=== PATIENT | male | born 1950 | race Caucasian/White ===

== ENCOUNTER 2016-03-22 16:44 | Emergency (ER) | payer OTHER ==
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
--- NOTE | 2016-03-22 18:42 | XR ---
EXAMINATION TYPE: XR knee complete RT DATE OF EXAM: 03/22/2016 6:34 PM COMPARISON: NONE HISTORY: Knee pain TECHNIQUE: 3 views FINDINGS: There is a large spur on the tibial tubercle. There is spurring on the anterior patella. I see no fracture nor dislocation. Joint spaces are fairly normal. IMPRESSION: No fracture seen. Degenerative spur formation.
[2016-03-22] MEDS ORDERED: hydrALAZINE HCL 20 MG/ML 1 ML VIAL IVP STA (19:34)
[2016-03-22 20:07] VITALS: BP 163/72; PULSE 87; RESP 18; TEMP 97.6
== END 2016-03-22 20:06 | disposition home or self-care (01) ==
LOC: EC 16:44
DX: J32.9 Chronic sinusitis, unspecified (principal); I10 Essential (primary) hypertension; M25.561 Pain in right knee; R51 Headache; E11.40 Type 2 diabetes mellitus with diabetic neuropathy, unspecified; Z79.899 Other long term (current) drug therapy; Z79.84 Long term (current) use of oral hypoglycemic drugs; Z79.4 Long term (current) use of insulin; I25.2 Old myocardial infarction; V43.52XA Car driver injured in collision with other type car in traffic accident, initial encounter
CPT/HCPCS: 73562; 72125; 70450; 96374; 99284; J0360

== ENCOUNTER 2018-08-08 19:43 | Emergency (ER) | payer MEDICARE, OTHER ==
[2018-08-08 19:52] LABS: Glucose,Whole Blood 118 mg/dL (75-99)
[2018-08-08 19:58] VITALS: RESP 18
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
[2018-08-08 20:32] LABS: Basophils # (A) 0.1 k/uL (0-0.2); Basophils % (A) 1 %; Eosinophils # (A) 0.3 k/uL (0-0.7); Eosinophils % (A) 3 %; HCT 45.9 % (39.0-53.0); HGB 14.8 gm/dL (13.0-17.5); Lymphocytes # (A) 1.2 k/uL (1.0-4.8); Lymphocytes % (A) 13 %; MCH 29.3 pg (25.0-35.0); MCHC 32.2 g/dL (31.0-37.0); MCV 91.1 fL (80.0-100.0); Mean Platelet Volume 9.8; Monocytes # (A) 0.6 k/uL (0-1.0); Monocytes % (A) 6 %; Neutrophils # (A) 7.4 k/uL (1.3-7.7); Neutrophils % (A) 75 %; Platelet Count 162 k/uL (150-450); RBC 5.03 m/uL (4.30-5.90); RDW 13.3 % (11.5-15.5); WBC 9.8 k/uL (3.8-10.6)
[2018-08-08 20:46] LABS: Albumin 3.7 g/dL (3.5-5.0); Calcium 8.5 mg/dL (8.4-10.2); Potassium 4.4 mmol/L (3.5-5.1); Total Bilirubin 0.4 mg/dL (0.2-1.3); Total Protein 6.7 g/dL (6.3-8.2)
[2018-08-08 21:29] VITALS: BP 146/89; PULSE 68; TEMP 98.6
== END 2018-08-08 21:29 | disposition home or self-care (01) ==
LOC: SUPCPDRO 19:43 → EC 19:43
DX: E11.649 Type 2 diabetes mellitus with hypoglycemia without coma (principal); E11.40 Type 2 diabetes mellitus with diabetic neuropathy, unspecified; I10 Essential (primary) hypertension; I25.2 Old myocardial infarction; Z79.4 Long term (current) use of insulin; Z79.899 Other long term (current) drug therapy; Z95.5 Presence of coronary angioplasty implant and graft; Z89.422 Acquired absence of other left toe(s)
CPT/HCPCS: 36415; 80053; 85025; 93005; 99284

== ENCOUNTER 2019-01-15 19:07 | Inpatient (IN) | payer MEDICARE ==
[~2019-01-15 19:07] MED LIST: MIDAZOLAM 2 MG/2 ML VIAL ONE; PHENYLEPHRINE-0.9% NACL SYG 1 MG/10 ML SYRINGE ONE; ROCURONIUM BROMIDE 10 MG/ML 10 ML VIAL IV ONE; fentaNYL (PF) 50 MCG/ML 2 ML AMP ONE
[2019-01-15] MEDS ORDERED: SODIUM CHLORIDE 0.9% 1,000 ML IV STA (19:29)
[2019-01-15] MEDS ORDERED: cefTRIAXone IN SWFI 1,000 MG/10 ML SYRINGE IVP STA (19:30)
--- NOTE | 2019-01-15 19:39 | ED ---
General Adult HPI - General Source: patient, RN notes reviewed Mode of arrival: wheelchair Limitations: no limitations <Homero Mejia - Last Filed: 01/15/19 21:54> <Winnie Jameson - Last Filed: 01/21/19 02:17> - General Chief complaint: Extremity Injury, Lower Stated complaint: toe injury Time Seen by Provider: 01/15/19 19:14 - History of Present Illness Initial comments: 68-year-old male with a past medical history of IDDM, hyperlipidemia, hypertension, [place], neuropathy presents to the emergency department for a chief complaint of right fifth toe pain. Patient is unsure how long this has been ongoing for, states he thinks it is at least one month. States it is causing him pain shooting up to his knee. States it is painful to ambulate on. Denies fevers or chills. States he did have to have a toe of the left foot amputated.Patient has no other complaints at this time including shortness of breath, chest pain, abdominal pain, nausea or vomiting, headache, or visual changes. (Homero Mejia) - Related Data Home Medications Medication Instructions Recorded Confirmed HYDROcodone/APAP 10-325MG [[place] 1 tab PO TID PRN 02/03/15 01/15/19 10-325] glipiZIDE [Glucotrol] 10 mg PO DAILY 02/03/15 01/15/19 Insuln Asp Prt/Insulin Aspart 35 unit SQ AC-BRKFST 03/22/16 01/15/19 [NovoLOG MIX 70-30 VIAL] Brimonidine Tartrate [Alphagan P 1 drops LEFT EYE TID 08/08/18 01/15/19 0.2% Ophth Soln] Dorzolamide 2% [Trusopt 2%] 1 drops LEFT EYE TID 08/08/18 01/15/19 FLUoxetine HCL [PROzac] 20 mg PO DAILY 08/08/18 01/15/19 Insuln Asp Prt/Insulin Aspart 20 unit SQ HS 08/08/18 01/15/19 [NovoLOG MIX 70-30 VIAL] Latanoprost/Pf [Latanoprost 0.005% 1 drop LEFT EYE HS 08/08/18 01/15/19 Eye Drop] Lisinopril 40 mg PO DAILY 08/08/18 01/15/19 Timolol 0.5% Ophth Soln [Timoptic 1 drop LEFT EYE BID 08/08/18 01/15/19 0.5% Ophth Soln] metFORMIN HCL [Glucophage] 500 mg PO BID 08/08/18 01/15/19 Gabapentin [Neurontin] 100 mg PO HS 01/15/19 01/20/19 Insulin Aspart [NovoLOG] 8 units SQ AC-SUPPER 01/15/19 01/15/19 rOPINIRole HCL [Requip] 2 mg PO HS 01/15/19 01/15/19 Atorvastatin [Lipitor] 40 mg PO HS 01/20/19 01/20/19 Pioglitazone [Actos] 30 mg PO DAILY 01/20/19 01/20/19 amLODIPine BESYLATE 5 mg PO DIRECTED 01/20/19 01/20/19 Allergies Allergy/AdvReac Type Severity Reaction Status Date / Time No Known Allergies Allergy Verified 01/15/19 21:52 Review of Systems ROS Other: All systems not noted in ROS Statement are negative. <Homero Mejia - Last Filed: 01/15/19 21:54> ROS Other: All systems not noted in ROS Statement are negative. <Winnie Jameson - Last Filed: 01/21/19 02:17> ROS Statement: Those systems with pertinent positive or pertinent negative responses have been documented in the HPI. Past Medical History Past Medical History: Diabetes Mellitus, Hyperlipidemia, Hypertension, Myocardial Infarction ([place]), Osteoarthritis (OA) Additional Past Medical History / Comment(s): SILENT [place]-UNK DATE, NEUROPATHY/FEET,RLS, BROKEN LT ELBOW AND RT ANKLE HAD SX ON BOTH HAS SCREWS IN PLACE, PREVIOUS DIABETIC ULCERS. Wounds Right foot Last Myocardial Infarction Date:: UNK History of Any Multi-Drug Resistant Organisms: MRSA Date of last positivie culture/infection: 02-04-2015 MDRO Source:: MRSA- right foot wound Past Surgical History: Heart Catheterization Additional Past Surgical History / Comment(s): LT MIDDLE TOE AMPUTION, ORIF LT ELBOW, RT ANKLE HAS SCREWS IN PLACE, PICC LINE LT ARM SINCE REMOVED. Right foot incision and drainage Past Anesthesia/Blood Transfusion Reactions: No Reported Reaction Past Psychological History: No Psychological Hx Reported Smoking Status: Never smoker Past Alcohol Use History: None Reported Past Drug Use History: None Reported - Past Family History Mother Family Medical History: Diabetes Mellitus Additional Family Medical History / Comment(s): CARDIAC PROBLEMS AT AGE 63 Father History Unknown: Yes Additional Family Medical History / Comment(s): STILL ALIVE AT AGE 89 NOT FAILING <Homero Mejia - Last Filed: 01/15/19 21:54> General Exam Limitations: no limitations General appearance: alert, in no apparent distress Head exam: Present: atraumatic, normocephalic, normal inspection Eye exam: Present: normal appearance, PERRL, EOMI. Absent: scleral icterus, conjunctival injection, periorbital swelling ENT exam: Present: normal exam, mucous membranes moist Neck exam: Present: normal inspection, full ROM. Absent: tenderness, meningismus, lymphadenopathy Respiratory exam: Present: normal lung sounds bilaterally. Absent: respiratory distress, wheezes, rales, rhonchi, stridor Cardiovascular Exam: Present: regular rate, normal rhythm, normal heart sounds. Absent: systolic murmur, diastolic murmur, rubs, gallop, clicks Extremities exam: Present: other (Patient has necrotic right fifth toe extending to the proximal metatarsal area. This is blackened with a foul odor. There is erythema noted of the right foot as well. DP and PT pulses are evident on Doppler.). Absent: calf tenderness (tenderness) <Homero Mejia - Last Filed: 01/15/19 21:54> Course Vital Signs 01/15/19 01/15/19 01/15/19 19:09 20:41 22:02 Temperature 98.0 F Pulse Rate 102 H 104 H 94 Respiratory 20 22 22 Rate Blood Pressure 162/71 134/60 149/67 O2 Sat by Pulse 96 95 95 Oximetry Medical Decision Making - Lab Data Result diagrams: 01/15/19 20:20 01/15/19 20:20 <Homero Mejia - Last Filed: 01/15/19 21:54> - Lab Data Result diagrams: 01/20/19 05:15 01/20/19 05:15 <Winnie Jameson - Last Filed: 01/21/19 02:17> - Medical Decision Making 68-year-old male with multiple comorbidities including his [place] diabetes presents for right foot pain. Patient unsure how long this has been going on but thinks at least greater than one month. He does have evidence of a chronic tissue on the lateral distal right foot as well as the right fifth toe. CBC does show a leukocytosis of 22.2 and a lactic acid of 2.3. Patient was given fluids and IV antibiotics before 3 hours after sepsis dx. Does not require 30 mL/kg as he is not hypotensive. X-ray of the right foot shows extensive soft tissue air consistent with gangrene. No fracture. No focal bone destruction seen. Case was discussed with Dr. Jameson who spoke with Dr. Granger and Dr. Bustillos. Patient will be admitted on broad-spectrum antibiotics. (Homero Mejia) I was available for consultation in the emergency department. The history and physical exam were done by the midlevel provider. I was consulted for this patients care. I reviewed the case with the midlevel provider and based on their presentation of the patient, I agree with the assessment, medical decision making and plan of care as documented. I evaluated the patient myself. No crepitance noted or other concerning signs of necrotizing fascitis. I called and discussed the case with Dr. Bustillos who accepted the consult. I also discussed the case with Dr. Granger who accepted admission. Chart was dictated using [employer] dictation software. Attempts were made to correct any dictation errors however some typographical errors may persist. (Winnie Jameson) - Lab Data Lab Results 01/15/19 01/15/19 01/15/19 Range/Units 20:20 20:20 20:20 WBC 22.2 H (3.8-10.6) k/uL RBC 4.93 (4.30-5.90) m/uL Hgb 14.8 (13.0-17.5) gm/dL Hct 46.5 (39.0-53.0) % MCV 94.4 (80.0-100.0) fL MCH 30.1 (25.0-35.0) pg MCHC 31.9 (31.0-37.0) g/dL RDW 11.9 (11.5-15.5) % Plt Count 243 (150-450) k/uL Neutrophils % 88 % Lymphocytes % 4 % Monocytes % 5 % Eosinophils % 1 % Basophils % 0 % Neutrophils # 19.6 H (1.3-7.7) k/uL Lymphocytes # 0.9 L (1.0-4.8) k/uL Monocytes # 1.2 H (0-1.0) k/uL Eosinophils # 0.2 (0-0.7) k/uL Basophils # 0.0 (0-0.2) k/uL Sodium 136 L (137-145) mmol/L Potassium 4.7 (3.5-5.1) mmol/L Chloride 96 L (98-107) mmol/L Carbon Dioxide 28 (22-30) mmol/L Anion Gap 12 mmol/L BUN 30 H (9-20) mg/dL Creatinine 1.13 (0.66-1.25) mg/dL Est GFR (CKD-EPI)AfAm 77 (>60 ml/min/1.73 sqM) Est GFR (CKD-EPI)NonAf 67 (>60 ml/min/1.73 sqM) Glucose 498 H (74-99) mg/dL Lactic Ac Sepsis Rflx Plasma Lactic Acid Jose Carlos 2.3 H* (0.7-2.0) mmol/L Calcium 8.4 (8.4-10.2) mg/dL Total Bilirubin 0.9 (0.2-1.3) mg/dL AST 22 (17-59) U/L ALT 28 (21-72) U/L Alkaline Phosphatase 103 (38-126) U/L Total Protein 6.5 (6.3-8.2) g/dL Albumin 3.3 L (3.5-5.0) g/dL 01/15/19 Range/Units 21:06 WBC (3.8-10.6) k/uL RBC (4.30-5.90) m/uL Hgb (13.0-17.5) gm/dL Hct (39.0-53.0) % MCV (80.0-100.0) fL MCH (25.0-35.0) pg MCHC (31.0-37.0) g/dL RDW (11.5-15.5) % Plt Count (150-450) k/uL Neutrophils % % Lymphocytes % % Monocytes % % Eosinophils % % Basophils % % Neutrophils # (1.3-7.7) k/uL Lymphocytes # (1.0-4.8) k/uL Monocytes # (0-1.0) k/uL Eosinophils # (0-0.7) k/uL Basophils # (0-0.2) k/uL Sodium (137-145) mmol/L Potassium (3.5-5.1) mmol/L Chloride (98-107) mmol/L Carbon Dioxide (22-30) mmol/L Anion Gap mmol/L BUN (9-20) mg/dL Creatinine (0.66-1.25) mg/dL Est GFR (CKD-EPI)AfAm (>60 ml/min/1.73 sqM) Est GFR (CKD-EPI)NonAf (>60 ml/min/1.73 sqM) Glucose (74-99) mg/dL Lactic Ac Sepsis Rflx Y Plasma Lactic Acid Jose Carlos (0.7-2.0) mmol/L Calcium (8.4-10.2) mg/dL Total Bilirubin (0.2-1.3) mg/dL AST (17-59) U/L ALT (21-72) U/L Alkaline Phosphatase (38-126) U/L Total Protein (6.3-8.2) g/dL Albumin (3.5-5.0) g/dL Disposition Is patient prescribed a controlled substance at d/c from ED?: No Time of Disposition: 22:00 <Homero Mejia P - Last Filed: 01/15/19 21:54> <Winnie Jameson - Last Filed: 01/21/19 02:17> Clinical Impression: Hyperglycemia, Gangrene, Leukocytosis Disposition: ADMITTED IP TO THIS HOSP Condition: Fair
[2019-01-15 20:36] LABS: Basophils % (A) 0 %; Eosinophils # (A) 0.2 k/uL (0-0.7); Eosinophils % (A) 1 %; HCT 46.5 % (39.0-53.0); HGB 14.8 gm/dL (13.0-17.5); Lymphocytes # (A) 0.9 k/uL (1.0-4.8); Lymphocytes % (A) 4 %; MCH 30.1 pg (25.0-35.0); MCHC 31.9 g/dL (31.0-37.0); MCV 94.4 fL (80.0-100.0); Mean Platelet Volume 8.9; Monocytes # (A) 1.2 k/uL (0-1.0); Monocytes % (A) 5 %; Neutrophils # (A) 19.6 k/uL (1.3-7.7); Neutrophils % (A) 88 %; Platelet Count 243 k/uL (150-450); RBC 4.93 m/uL (4.30-5.90); RDW 11.9 % (11.5-15.5); WBC 22.2 k/uL (3.8-10.6)
[2019-01-15 20:50] LABS: Albumin 3.3 g/dL (3.5-5.0); Calcium 8.4 mg/dL (8.4-10.2); Potassium 4.7 mmol/L (3.5-5.1); Total Bilirubin 0.9 mg/dL (0.2-1.3); Total Protein 6.5 g/dL (6.3-8.2)
--- NOTE | 2019-01-15 20:57 | XR ---
EXAMINATION TYPE: XR foot complete RT DATE OF EXAM: 01/15/2019 COMPARISON: NONE HISTORY: Necrosis of the fifth toe TECHNIQUE: 3 views FINDINGS: There is extensive soft tissue air in the right foot involving the fourth and fifth metatar sals. Soft tissue air extends into the little toe and the base of the fourth toe. I see no fracture n or dislocation. There are plantar and Achilles calcaneal spurs. IMPRESSION: Extensive soft tissue air consistent with gangrene. No fracture. No focal bone destructio n seen.
[2019-01-15] MEDS ORDERED: VANCOMYCIN IV PER PHARMACY 1 EACH MISC MISCELLANE PRN (21:11)
[2019-01-15] MEDS ORDERED: PIPERACILLIN-TAZOBACTAM 3.375 GM in SODIUM CHLORIDE 0.9% 100 ML IVPB STA (21:12)
[2019-01-15] MEDS ORDERED: PIPERACILLIN-TAZOBACTAM 3.375 GM in SODIUM CHLORIDE 0.9% 100 ML IVPB ONE (21:16)
[2019-01-15] MEDS ORDERED: INSULIN REGULAR 100 UNIT/ML VIAL IV ONE (21:17)
[2019-01-15] MEDS ORDERED: INSULIN ASPART (NovoLOG) 100 UNIT/ML VIAL SQ STA (21:17)
[2019-01-15] MEDS ORDERED: NALOXONE 0.4 MG/ML 1 ML VIAL IV PRN (21:54)
[2019-01-15] MEDS ORDERED: VANCOMYCIN 1,750 MG in SODIUM CHLORIDE 0.9% 500 ML 500 ML IVPB ONE (22:00)
[2019-01-15 23:24] LABS: Glucose,Whole Blood 459 mg/dL (75-99)
[2019-01-15] MEDS: CLINDAMYCIN 600 MG in DEXTROSE 5% IN WATER 50 ML IVPB ONE ×4 (23:27→23:29)
[2019-01-15] MEDS: SODIUM CHLORIDE 0.9% 1,000 ML IV SCH (23:28)
[2019-01-16] MEDS ORDERED: CLINDAMYCIN 600 MG in DEXTROSE 5% IN WATER 50 ML IVPB SCH ×2 (07:00)
[2019-01-16] MEDS: PIPERACILLIN-TAZOBACTAM 3.375 GM in SODIUM CHLORIDE 0.9% 100 ML IVPB SCH ×3 (07:23→20:56)
[2019-01-16 07:24] LABS: Glucose,Whole Blood 357 mg/dL (75-99)
[2019-01-16] MEDS: HYDROcodone/APAP 10-325MG 1 EACH TAB PO PRN ×2 (07:42→20:49)
[2019-01-16] MEDS: LISINOPRIL 20 MG TAB PO SCH (07:42)
[2019-01-16] MEDS: FLUoxetine HCL 20 MG CAP PO SCH (07:42)
[2019-01-16] MEDS: INSULIN ASPART (NovoLOG) 100 UNIT/ML VIAL SQ SCH ×4 (07:43→20:49)
[2019-01-16] MEDS: GABAPENTIN 100 MG CAP PO SCH ×3 (07:43→20:49)
[2019-01-16] MEDS: BRIMONIDINE TARTRATE 0.2% DROPS 5 ML BTL LEFT EYE SCH ×3 (07:43→20:51)
[2019-01-16] MEDS: SODIUM CHLORIDE 0.9% 1,000 ML IV SCH ×2 (07:43→17:26)
[2019-01-16] MEDS: DORZOLAMIDE HCL 2% DROPS 10 ML BTL LEFT EYE SCH ×3 (07:44→20:52)
[2019-01-16] MEDS: TIMOLOL 0.5% OPHTH DROPS 5 ML BTL LEFT EYE SCH ×2 (07:44→20:52)
[2019-01-16] MEDS ORDERED: amLODIPine 5 MG TAB PO SCH (09:00)
--- NOTE | 2019-01-16 11:10 | P.GSCN ---
History of Present Illness Consult date: 01/16/19 History of present illness: The patient is a 68-year-old poorly controlled diabetic male who presents with gangrene of his right fifth toe. He is unsure how long it has been this way, at least a month although it has been seemingly getting worse in the past week or so. He also has a past medical history of hyperlipidemia, hypertension, history of [place] and neuropathy. He denies any fevers or chills. He denies any chest pains, shortness of breath nausea, vomiting or visual changes. He did have a left third toe amputation many years ago for the same issue. Review of Systems 14 point review of systems performed, pertinent positives and negatives per the HPI Past Medical History Past Medical History: Diabetes Mellitus, Hyperlipidemia, Hypertension, Myocardial Infarction ([place]), Osteoarthritis ([place]) Additional Past Medical History / Comment(s): SILENT [place]-UNK DATE, NEUROP ATHY/FEET,RLS, BROKEN LT ELBOW AND RT ANKLE HAD SX ON BOTH HAS SCREWS IN PLACE, PREVIOUS DIABETIC ULCERS. Wounds Right foot. Last Myocardial Infarction Date:: UNK History of Any Multi-Drug Resistant Organisms: MRSA Year Discovered:: 02-04-2015 MDRO Source:: MRSA- right foot wound Past Surgical History: Heart Catheterization Additional Past Surgical History / Comment(s): LT MIDDLE TOE AMPUTION, ORIF LT ELBOW, RT ANKLE HAS SCREWS IN PLACE, PICC LINE LT ARM SINCE REMOVED. Right foot incision and drainage Past Anesthesia/Blood Transfusion Reactions: No Reported Reaction Past Psychological History: No Psychological Hx Reported Smoking Status: Never smoker Past Alcohol Use History: None Reported Past Drug Use History: None Reported - Past Family History Mother Family Medical History: Diabetes Mellitus Additional Family Medical History / Comment(s): CARDIAC PROBLEMS AT AGE 63 Father History Unknown: Yes Additional Family Medical History / Comment(s): father of mrsa in hip post sx 2017 age 91. Medications and Allergies Home Medications Medication Instructions Recorded Confirmed Type HYDROcodone/APAP 10-325MG [[place] 1 tab PO TID PRN 02/03/15 01/15/19 History 10-325] glipiZIDE [Glucotrol] 10 mg PO DAILY 02/03/15 01/15/19 History Insuln Asp Prt/Insulin Aspart 35 unit SQ AC-BRKFST 03/22/16 01/15/19 History [NovoLOG MIX 70-30 VIAL] Brimonidine Tartrate [Alphagan P 1 drops LEFT EYE TID 08/08/18 01/15/19 History 0.2% Ophth Soln] Dorzolamide 2% [Trusopt 2%] 1 drops LEFT EYE TID 08/08/18 01/15/19 History FLUoxetine HCL [PROzac] 20 mg PO DAILY 08/08/18 01/15/19 History Insuln Asp Prt/Insulin Aspart 20 unit SQ HS 08/08/18 01/15/19 History [NovoLOG MIX 70-30 VIAL] Latanoprost/Pf [Latanoprost 0.005% 1 drop LEFT EYE HS 08/08/18 01/15/19 History Eye Drop] Lisinopril 40 mg PO DAILY 08/08/18 01/15/19 History Timolol 0.5% Ophth Soln [Timoptic 1 drop LEFT EYE BID 08/08/18 01/15/19 History 0.5% Ophth Soln] metFORMIN HCL [Glucophage] 500 mg PO BID 08/08/18 01/15/19 History Gabapentin [Neurontin] 100 mg PO DAILY 01/15/19 01/15/19 History Insulin Aspart [NovoLOG] 8 units SQ AC-SUPPER 01/15/19 01/15/19 History rOPINIRole HCL [Requip] 2 mg PO HS 01/15/19 01/15/19 History sitaGLIPtin [Januvia] 100 mg PO DAILY 01/15/19 01/15/19 History Allergies Allergy/AdvReac Type Severity Reaction Status Date / Time No Known Allergies Allergy Verified 01/15/19 21:52 Surgical - Exam Vital Signs Temp Pulse Resp BP Pulse Ox 98.0 F 102 H 20 162/71 96 01/15/19 19:09 01/15/19 19:09 01/15/19 19:09 01/15/19 19:09 01/15/19 19:09 Gen. is a pleasant cooperative male in no acute distress, obese. HEENT is normocephalic, atraumatic, excellent motion intact. Neck is supple, trachea is midline. Heart is regular rate at this time. Lungs are clear bilaterally, no respiratory distress. Abdomen is obese, nontender nondistended. He has palpable radial femoral and popliteal pulses bilaterally. Nonpalpable pedal pulses, flaking skin of the feet. Previous left third toe amputation, well- healed. On the right fifth toe there is a plantar wound, there is gangrene of the fifth toe with surrounding erythema and drainage. This extends to the lateral foot. Minimal edema otherwise. Flattened affect. Normal mood. Cranial nerves II through XII grossly intact Results X-rays reviewed. Agree with findings of gangrene - Labs 01/15/19 20:20 01/15/19 20:20 Abnormal Lab Results - Last 24 Hours (Table) 01/15/19 01/15/19 01/15/19 Range/Units 20:20 20:20 20:20 WBC 22.2 H (3.8-10.6) k/uL Neutrophils # 19.6 H (1.3-7.7) k/uL Lymphocytes # 0.9 L (1.0-4.8) k/uL Monocytes # 1.2 H (0-1.0) k/uL Sodium 136 L (137-145) mmol/L Chloride 96 L (98-107) mmol/L BUN 30 H (9-20) mg/dL Glucose 498 H (74-99) mg/dL POC Glucose (mg/dL) (75-99) mg/dL Plasma Lactic Acid Jose Carlos 2.3 H* (0.7-2.0) mmol/L Albumin 3.3 L (3.5-5.0) g/dL 01/15/19 01/16/19 01/16/19 Range/Units 23:22 00:44 07:18 WBC (3.8-10.6) k/uL Neutrophils # (1.3-7.7) k/uL Lymphocytes # (1.0-4.8) k/uL Monocytes # (0-1.0) k/uL Sodium (137-145) mmol/L Chloride (98-107) mmol/L BUN (9-20) mg/dL Glucose (74-99) mg/dL POC Glucose (mg/dL) 459 H 357 H (75-99) mg/dL Plasma Lactic Acid Jose Carlos 2.6 H* (0.7-2.0) mmol/L Albumin (3.5-5.0) g/dL Diabetes panel 01/15/19 Range/Units 20:20 Sodium 136 L (137-145) mmol/L Potassium 4.7 (3.5-5.1) mmol/L Chloride 96 L (98-107) mmol/L Carbon Dioxide 28 (22-30) mmol/L BUN 30 H (9-20) mg/dL Creatinine 1.13 (0.66-1.25) mg/dL Glucose 498 H (74-99) mg/dL Calcium 8.4 (8.4-10.2) mg/dL AST 22 (17-59) U/L ALT 28 (21-72) U/L Alkaline Phosphatase 103 (38-126) U/L Total Protein 6.5 (6.3-8.2) g/dL Albumin 3.3 L (3.5-5.0) g/dL Calcium panel 01/15/19 Range/Units 20:20 Calcium 8.4 (8.4-10.2) mg/dL Albumin 3.3 L (3.5-5.0) g/dL Pituitary panel 01/15/19 Range/Units 20:20 Sodium 136 L (137-145) mmol/L Potassium 4.7 (3.5-5.1) mmol/L Chloride 96 L (98-107) mmol/L Carbon Dioxide 28 (22-30) mmol/L BUN 30 H (9-20) mg/dL Creatinine 1.13 (0.66-1.25) mg/dL Glucose 498 H (74-99) mg/dL Calcium 8.4 (8.4-10.2) mg/dL Adrenal panel 01/15/19 Range/Units 20:20 Sodium 136 L (137-145) mmol/L Potassium 4.7 (3.5-5.1) mmol/L Chloride 96 L (98-107) mmol/L Carbon Dioxide 28 (22-30) mmol/L BUN 30 H (9-20) mg/dL Creatinine 1.13 (0.66-1.25) mg/dL Glucose 498 H (74-99) mg/dL Calcium 8.4 (8.4-10.2) mg/dL Total Bilirubin 0.9 (0.2-1.3) mg/dL AST 22 (17-59) U/L ALT 28 (21-72) U/L Alkaline Phosphatase 103 (38-126) U/L Total Protein 6.5 (6.3-8.2) g/dL Albumin 3.3 L (3.5-5.0) g/dL Assessment and Plan Assessment: #1 wet gangrene right fifth toe #2 uncontrolled type 2 diabetes #3 previous amputation for infected gangrene toe on the left foot #4 hyperlipidemia #5 hypertension #6 previous SD Plan: We will plan to make him nothing by mouth after midnight and taken to the o perating room tomorrow for a amputation of his right fifth toe. He is currently on multiple antibiotics, continue antibiotics per medicine. We will also plan on obtaining an arterial ultrasound with segmental pressures to evaluate any need for revascularization. Long discussion was had with the patient regarding need for control of his blood sugar. Will evaluate need for further amputation on going after initial surgical intervention. Thank you for allowing me to participate in the care of your patient
[2019-01-16 11:50] LABS: Glucose,Whole Blood 299 mg/dL (75-99)
--- NOTE | 2019-01-16 12:17 | P.PN ---
Subjective Progress Note Date: 01/16/19 Principal diagnosis: Right foot pain Refugio Saenz, is a 68-year-old male who presented to [facility] emergency room with pain in the right foot, he was evaluated in emergency room and had blackish discoloration of the right fifth toe with surrounding erythema and tenderness, patient was started on IV antibiotics Zosyn, vancomycin, and clindamycin, he was admitted to medical floor vascular surgery consultation was requested for possible amputation due to evidence of gangrene. Infectious disease consultation was requested. Patient has a known history of insulin-dependent diabetes mellitus, his glucose level was well controlled up until September of this year his A1c in June was 7.1 and in September was 7.3 however apparently patient stopped taking his insulin and his medications and his A1c was up to 9.8 in November, he has a known history of right foot ulcer he was admitted to the hospital with right foot cellulitis and ulcer in 2014 and he was followed at the wound care clinic in 2015 however he was doing well up until recently. Patient also has a known history of hypertension, hyperlipidemia, he denies any history of coronary artery disease or congestive heart failure, he had an echocardiogram done in 2014 at that time he had normal left ventricular function was normal ejection fraction, no significant valvular disease and no pulmonary hypertension. 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 Objective - Vital Signs Vital signs: Vital Signs Temp 98.4 F 01/16/19 10:21 Pulse 83 01/16/19 10:21 Resp 18 01/16/19 10:21 BP 90/56 01/16/19 10:21 Pulse Ox 92 L 01/16/19 10:21 Intake & Output 01/15/19 01/16/19 01/16/19 18:59 06:59 18:59 Weight 111.13 kg Other: Voiding Method Incontinent Diaper Incontinent # Voids 3 - Exam In general patient is alert and oriented 3 in no apparent distress HEENT head normocephalic and atraumatic Neck is supple no JVD no goiter no lymphadenopathy Chest exam reveals a few scattered rhonchi no wheezing Cardiac exam reveals regular heart sounds S1 and S2 no gallops no murmurs Abdomen is soft nontender no organomegaly with normal bowel sounds Extremity exam reveals minimal edema there is blackish discoloration of the right fifth toe with surrounding erythema involving the distal part of the right foot Neuro no gross focal neurological deficit - Labs CBC & Chem 7: 01/15/19 20:20 01/15/19 20:20 Labs: Abnormal Lab Results - Last 24 Hours (Table) 01/15/19 01/15/19 01/15/19 Range/Units 20:20 20:20 20:20 WBC 22.2 H (3.8-10.6) k/uL Neutrophils # 19.6 H (1.3-7.7) k/uL Lymphocytes # 0.9 L (1.0-4.8) k/uL Monocytes # 1.2 H (0-1.0) k/uL Sodium 136 L (137-145) mmol/L Chloride 96 L (98-107) mmol/L BUN 30 H (9-20) mg/dL Glucose 498 H (74-99) mg/dL POC Glucose (mg/dL) (75-99) mg/dL Plasma Lactic Acid Jose Carlos 2.3 H* (0.7-2.0) mmol/L Albumin 3.3 L (3.5-5.0) g/dL 01/15/19 01/16/19 01/16/19 Range/Units 23:22 00:44 07:18 WBC (3.8-10.6) k/uL Neutrophils # (1.3-7.7) k/uL Lymphocytes # (1.0-4.8) k/uL Monocytes # (0-1.0) k/uL Sodium (137-145) mmol/L Chloride (98-107) mmol/L BUN (9-20) mg/dL Glucose (74-99) mg/dL POC Glucose (mg/dL) 459 H 357 H (75-99) mg/dL Plasma Lactic Acid Jose Carlos 2.6 H* (0.7-2.0) mmol/L Albumin (3.5-5.0) g/dL 01/16/19 Range/Units 11:35 WBC (3.8-10.6) k/uL Neutrophils # (1.3-7.7) k/uL Lymphocytes # (1.0-4.8) k/uL Monocytes # (0-1.0) k/uL Sodium (137-145) mmol/L Chloride (98-107) mmol/L BUN (9-20) mg/dL Glucose (74-99) mg/dL POC Glucose (mg/dL) 299 H (75-99) mg/dL Plasma Lactic Acid Jose Carlos (0.7-2.0) mmol/L Albumin (3.5-5.0) g/dL Assessment and Plan Plan: #1 gangrene involving the right fifth toe with surrounding cellulitis, patient was started on IV antibiotic in the emergency room including Zosyn and vancomycin and clindamycin, at this time will discontinue clindamycin and continue with Zosyn and vancomycin, consultation for infectious disease was initiated. Patient was also evaluated by vascular surgery and plans are for right fifth toe amputation in a.m. tomorrow. #2 sepsis, as evidenced by fever, leukocytosis, and elevated lactic acid. #3 for preoperative evaluation, will obtain an EKG, echocardiogram, and chest x- ray, will consult cardiology for evaluation. #4 insulin-dependent diabetes mellitus, with poor control due to noncompliance last hemoglobin A1c was 9.8 at this time will resume glipizide, Januvia and metformin, and cover was insulin to sliding scale will adjust medications as needed #5 underlying history of hypertension, however when patient was given his home medications of lisinopril and Norvasc, blood pressure was down to 90/56. At this time will continue was lisinopril and hold Norvasc and monitor closely. #6 underlying history of diabetic complications of peripheral neuropathy and retinopathy. #7 poor compliance with medical management, patient had extensive counseling in the last year, his A1c was down to 7.1 in June however it was up to 9.8 again recently. #8 underlying history of hyperlipidemia maintained on atorvastatin continue. At this time patient is admitted to medical floor, home medications reviewed and reordered Chest x-ray echocardiogram and EKG were ordered Consultation was infectious disease and cardiology for surgical clearance was initiated Will follow closely
[2019-01-16] MEDS: metFORMIN 500 MG TAB PO SCH ×2 (13:22→20:49)
[2019-01-16] MEDS: glipiZIDE 10 MG TAB PO SCH (13:22)
[2019-01-16] MEDS: LINAGLIPTIN 5 MG TABLET PO SCH (13:22)
--- NOTE | 2019-01-16 13:28 | XR ---
EXAMINATION TYPE: XR chest 1V portable DATE OF EXAM: 01/16/2019 CLINICAL HISTORY: Presurgical study. TECHNIQUE: Single AP portable upright view of the chest is obtained. COMPARISON: Chest x-ray from January 21, 2015 FINDINGS: Exam suboptimal due to portable technique and patient's large body habitus. The lung volum es are redemonstrated. Patchy bibasilar atelectasis and/or infiltrate is seen. No pleural effusion or pneumothorax is noted bilaterally. Cardiac silhouette size remains enlarged. Osseous structures are intact. IMPRESSION: Suboptimal study, low lung volumes and cardiomegaly with patchy bibasilar atelectasis and /or less likely infiltrate.
[2019-01-16] MEDS: VANCOMYCIN 1,750 MG in SODIUM CHLORIDE 0.9% 500 ML 500 ML IVPB SCH (13:37)
[2019-01-16 16:36] LABS: Glucose,Whole Blood 407 mg/dL (75-99)
[2019-01-16 20:15] LABS: Glucose,Whole Blood 313 mg/dL (75-99)
[2019-01-16] MEDS: LATANOPROST 0.005% OPHTH DROPS 2.5 ML BTL LEFT EYE SCH (20:51)
[2019-01-16 23:36] LABS: Glucose,Whole Blood 152 mg/dL (75-99)
[2019-01-17] MEDS: SODIUM CHLORIDE 0.9% 1,000 ML IV SCH ×2 (04:39→12:20)
[2019-01-17] MEDS: PIPERACILLIN-TAZOBACTAM 3.375 GM in SODIUM CHLORIDE 0.9% 100 ML IVPB SCH ×3 (05:15→22:21)
[2019-01-17] MEDS: VANCOMYCIN 1,750 MG in SODIUM CHLORIDE 0.9% 500 ML 500 ML IVPB SCH ×2 (05:15→22:21)
[2019-01-17 07:03] LABS: Glucose,Whole Blood 115 mg/dL (75-99)
[2019-01-17] MEDS: INSULIN ASPART (NovoLOG) 100 UNIT/ML VIAL SQ SCH ×4 (07:23→20:59)
[2019-01-17] MEDS: LINAGLIPTIN 5 MG TABLET PO SCH (07:24)
[2019-01-17] MEDS: metFORMIN 500 MG TAB PO SCH (07:24)
[2019-01-17] MEDS: LISINOPRIL 20 MG TAB PO SCH (07:24)
[2019-01-17] MEDS: FLUoxetine HCL 20 MG CAP PO SCH (07:24)
[2019-01-17] MEDS: glipiZIDE 10 MG TAB PO SCH (07:24)
[2019-01-17] MEDS: GABAPENTIN 100 MG CAP PO SCH ×3 (07:24→20:59)
[2019-01-17] MEDS: DORZOLAMIDE HCL 2% DROPS 10 ML BTL LEFT EYE SCH ×3 (07:31→21:28)
[2019-01-17] MEDS: BRIMONIDINE TARTRATE 0.2% DROPS 5 ML BTL LEFT EYE SCH ×3 (07:31→21:27)
[2019-01-17] MEDS: TIMOLOL 0.5% OPHTH DROPS 5 ML BTL LEFT EYE SCH ×2 (07:31→21:27)
--- NOTE | 2019-01-17 07:58 | ECHOF ---
Referral Reason:pre op evaluation MEASUREMENTS -------- HEIGHT: 162.6 cm WEIGHT: 111.1 kg BP: IVSd: 1.3 cm (0.6 - 1.1) LVIDd: 4.4 cm (3.9 - 5.3) LVPWd: 1.5 cm (0.6 - 1.1) IVSs: 2.4 cm LVIDs: 2.7 cm LVPWs: 2.2 cm Ao Diam: 3.4 cm (2.0 - 3.7) AV Cusp: 2.2 cm (1.5 - 2.6) LA Diam: 3.2 cm (2.7 - 3.8) MV EXCURSION: 16.312 mm (> 18.000) MV EF SLOPE: 73 mm/s (70 - 150) EPSS: 0.6 cm MV E Casimiro: 0.55 m/s MV DecT: 235 ms MV A Casimiro: 0.73 m/s MV E/A Ratio: 0.75 FINDINGS -------- Sinus rhythm. This was a technically difficult study with suboptimal views. Morbid Obesity The left ventricular size is normal. There is moderate concentric left ventricular hypertrophy. O verall left ventricular systolic function is low-normal with, an EF between 50 - 55 %. Atypical sep meng wall motion The RV was not well visualized. The left atrium was not well visualized. The left atrial size is normal. The right atrium was not well visualized. 5.0mg of Lumason was utilized for enhancement of images The aortic valve was not well visualized. There is mild aortic valve sclerosis. The mitral valve was not well visualized. No mitral regurgitation. The tricuspid valve was not well visualized. Unable to estimate RVSP due to inadequate TR jet spect ral doppler profile. The pulmonic valve was not well visualized. The aortic root size is normal. IVC Not well visulized. There is no pericardial effusion. CONCLUSIONS -------- 1. Sinus rhythm. 2. This was a technically difficult study with suboptimal views. 3. Morbid Obesity 4. The left ventricular size is normal. 5. There is moderate concentric left ventricular hypertrophy. 6. Overall left ventricular systolic function is low-normal with, an EF between 50 - 55 %. 7. Atypical septal wall motion 8. The RV was not well visualized. 9. The left atrium was not well visualized. 10. The left atrial size is normal. 11. The right atrium was not well visualized. 12. 5.0mg of Lumason was utilized for enhancement of images 13. The aortic valve was not well visualized. 14. There is mild aortic valve sclerosis. 15. The mitral valve was not well visualized. 16. No mitral regurgitation. 17. The tricuspid valve was not well visualized. 18. Unable to estimate RVSP due to inadequate TR jet spectral doppler profile. 19. The pulmonic valve was not well visualized. 20. The aortic root size is normal. 21. IVC Not well visulized. 22. There is no pericardial effusion. [employer] SUPERVISOR: Kera Lay RDCS
[2019-01-17] MEDS ORDERED: IV FLUID CONTINUATION 1,000 ML IV ONE (08:04)
[2019-01-17] MEDS ORDERED: SODIUM HYPOCHLORITE 0.5% 480 ML BOT MISCELLANE ONE (08:19)
[2019-01-17] MEDS ORDERED: LACTATED RINGERS 1,000 ML IV ONE (08:22)
[2019-01-17] MEDS ORDERED: fentaNYL (PF) 50 MCG/ML 2 ML AMP ONE (08:22)
[2019-01-17] MEDS ORDERED: PROPOFOL 10 MG/ML 20 ML VIAL IV ONE (08:22)
[2019-01-17] MEDS ORDERED: LIDOCAINE 1% 20 ML VIAL (10MG/ML) FOR IV START SQ ONE ×2 (08:48→08:52)
--- NOTE | 2019-01-17 09:39 | P.PN ---
Subjective Progress Note Date: 01/17/19 Preoperative diagnosis: Wet gangrene right fifth toe Postoperative diagnosis: Same Procedure: Ray amputation fourth and fifth toes on the right Surgeon: Toshia Bustillos D.O. EBL: 15 mL IV fluids: 300 mL Urine output: Not measured Drains: None Complications: None immediately apparent Condition: Stable but guarded, to PACU Operative indication and findings: The patient is a 68-year-old male with severe uncontrolled diabetes, he has had an issue with his right fifth toe for the past few months with worsening recently. He presented to the ER for this. He was initiated on antibiotics. He underwent bilateral lower extremity arterial ultrasounds with segmental pressures. His ALMA on the right is 0.79 with a noncompressible PT. The waveforms at the femoral and popliteal appear triphasic. At the dorsalis pedis they are more monophasic in nature with blunted upstrokes. ALMA on the left is 1.10. Given the appearance he was taken to the operative suite for amputation of his fifth toe and subsequent fourth toe. There was significant purulent drainage and discharge to tract all the way up to the lateral ankle. There was significant foul smell. The tissues of the fourth toe at the metatarsal area were necrotic as well therefore at the time of surgery the fourth toe was included in the surgical excision Procedure in detail: The patient was taken to the operative suite and placed in supine position. The right lower extremity was prepped and draped in usual sterile fashion. A preprocedure timeout was performed, all parties were in agreement. After IV anesthesia was adequate, local anesthetic was infiltrated into the area of the fifth toe. An incision was made surrounding the fifth toe and along the lateral portion of the foot there was copious amounts of purulent drainage along with necrotic tissues. In order to Necrotic Tissue the Fourth Toe Also Needed to Be Resected. The Skin Was Incising Transected with Electrocautery down to the Level of the Bone the Bone Clipper Was Used To Transect the Fourth and Fifth Metatarsals. That Time Sharp Excisional Debridement of All the Necrotic Tissue Was Performed a Finger Sweep Proximally Did Reveal Undermining up to the Level Almost to the Ankle the Skin Overlying Was Opened Because There Was Purulent Drainage Here. After the Necrotic Tissue Was Debrided There Appeared to Be Healthy Appearing Tissue. Bleeding Was Controlled with Electrocautery. A Rasp was utilized to smooth the bone. The area was copiously irrigated with saline. A Dakin's wet-to-dry dressing was placed. The patient was taken to the PACU in stable condition having tolerated the procedure well. He will need to return to the operating room for further debridement and next few days, he likely will also need a angiogram to evaluate any possibility of revascularization attempts in the infrapopliteal area but given his diabetic disease is likely that the majority of this is microvascular in nature Objective - Vital Signs Vital signs: Vital Signs Temp 97.7 F 01/17/19 07:59 Pulse 71 01/17/19 07:59 Resp 18 01/17/19 07:59 BP 98/53 01/17/19 07:59 Pulse Ox 95 01/17/19 07:59 Intake & Output 01/16/19 01/17/19 01/17/19 18:59 06:59 18:59 Intake Total 700 1250 Output Total 400 15 Balance 300 1235 Intake: IV 1250 Oral 700 Output: Urine 400 Estimated Blood Loss 15 Other: Voiding Method Diaper Diaper Incontinent Incontinent # Voids 2 # Bowel Movements 2 1 - Labs CBC & Chem 7: 01/15/19 20:20 01/15/19 20:20 Labs: Abnormal Lab Results - Last 24 Hours (Table) 01/16/19 01/16/19 01/16/19 Range/Units 11:35 16:34 20:13 POC Glucose (mg/dL) 299 H 407 H 313 H (75-99) mg/dL 01/16/19 01/17/19 Range/Units 23:32 06:59 POC Glucose (mg/dL) 152 H 115 H (75-99) mg/dL Microbiology - Last 24 Hours (Table) 01/15/19 20:20 Blood Culture - Preliminary Blood No Growth after 24 hours
[2019-01-17 09:57] LABS: Glucose,Whole Blood 96 mg/dL (75-99)
[2019-01-17 11:25] LABS: Glucose,Whole Blood 113 mg/dL (75-99)
[2019-01-17] MEDS: HYDROmorphone 0.5 MG/0.5 ML SYRINGE IVP PRN ×2 (11:30→17:33)
[2019-01-17] MEDS ORDERED: SODIUM CHLORIDE 0.9% 500 ML 500 ML IV ONE (11:35)
[2019-01-17 11:37] LABS: Basophils % (A) 0 %; Eosinophils # (A) 0.2 k/uL (0-0.7); Eosinophils % (A) 1 %; HCT 42.8 % (39.0-53.0); HGB 13.8 gm/dL (13.0-17.5); Hypochromasia Slight; Lymphocytes # (A) 1.3 k/uL (1.0-4.8); Lymphocytes % (A) 6 %; MCH 30.3 pg (25.0-35.0); MCHC 32.2 g/dL (31.0-37.0); MCV 93.9 fL (80.0-100.0); Mean Platelet Volume 8.2; Monocytes # (A) 0.9 k/uL (0-1.0); Monocytes % (A) 4 %; Neutrophils # (A) 20.2 k/uL (1.3-7.7); Neutrophils % (A) 88 %; Platelet Count 190 k/uL (150-450); RBC 4.56 m/uL (4.30-5.90); RDW 11.9 % (11.5-15.5); WBC 22.9 k/uL (3.8-10.6)
--- NOTE | 2019-01-17 11:41 | P.PN ---
Subjective Progress Note Date: 01/17/19 Right foot pain Refugio Saenz, is a 68-year-old male who presented to [facility] emergency room with pain in the right foot, he was evaluated in emergency room and had blackish discoloration of the right fifth toe with surrounding erythema and tenderness, patient was started on IV antibiotics Zosyn, vancomycin, and clindamycin, he was admitted to medical floor vascular surgery consultation was requested for possible amputation due to evidence of gangrene. Infectious disease consultation was requested. Patient has a known history of insulin-dependent diabetes mellitus, his glucose level was well controlled up until September of this year his A1c in June was 7.1 and in September was 7.3 however apparently patient stopped taking his insulin and his medications and his A1c was up to 9.8 in November, he has a known history of right foot ulcer he was admitted to the hospital with right foot cellulitis and ulcer in 2014 and he was followed at the wound care clinic in 2015 however he was doing well up until recently. Patient also has a known history of hypertension, hyperlipidemia, he denies any history of coronary artery disease or congestive heart failure, he had an echocardiogram done in 2014 at that time he had normal left ventricular function was normal ejection fraction, no significant valvular disease and no pulmonary hypertension. 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 On 01/17/2019 patient's alert and oriented 3. Patient had fourth and fifth toe amputation with Dr. Bustillos this morning. Patient having some low blood pressure will give 500 mL bolus. Patient denies chest pain or shortness of breath. Patient denies nausea vomiting or diarrhea. Patient is having some increased pain to foot area pain medications ordered Objective - Vital Signs Vital signs: Vital Signs Temp 98 F 01/17/19 09:33 Pulse 74 01/17/19 09:48 Resp 16 01/17/19 09:48 BP 94/60 01/17/19 09:48 Pulse Ox 97 01/17/19 09:48 Intake & Output 01/16/19 01/17/19 01/17/19 18:59 06:59 18:59 Intake Total 700 1300 Output Total 400 15 Balance 300 1285 Intake: IV 1300 Oral 700 Output: Urine 400 Estimated Blood Loss 15 Other: Voiding Method Diaper Diaper Incontinent Incontinent # Voids 2 # Bowel Movements 2 1 - Exam In general patient is alert and oriented 3 in no apparent distress HEENT head normocephalic and atraumatic Neck is supple no JVD no goiter no lymphadenopathy Chest exam reveals a few scattered rhonchi no wheezing Cardiac exam reveals regular heart sounds S1 and S2 no gallops no murmurs Abdomen is soft nontender no organomegaly with normal bowel sounds Extremity exam reveals minimal edema there is blackish discoloration of the right fifth toe with surrounding erythema involving the distal part of the right foot Neuro no gross focal neurological deficit - Labs CBC & Chem 7: 01/15/19 20:20 01/15/19 20:20 Labs: Abnormal Lab Results - Last 24 Hours (Table) 01/16/19 01/16/19 01/16/19 Range/Units 11:35 16:34 20:13 POC Glucose (mg/dL) 299 H 407 H 313 H (75-99) mg/dL 01/16/19 01/17/19 01/17/19 Range/Units 23:32 06:59 11:22 POC Glucose (mg/dL) 152 H 115 H 113 H (75-99) mg/dL Microbiology - Last 24 Hours (Table) 01/15/19 20:20 Blood Culture - Preliminary Blood No Growth after 24 hours Assessment and Plan Assessment: #1 gangrene involving the right fifth toe with surrounding cellulitis, patient was started on IV antibiotic in the emergency room including Zosyn and vancomycin and clindamycin, at this time will discontinue clindamycin and continue with Zosyn and vancomycin, consultation for infectious disease was initiated. Status post fixation of fourth and fifth toe with Dr. Bustillos. Per Dr. Bustillos patient will likely need to return to operating room for further debridement in the next few days. #2 sepsis, as evidenced by fever, leukocytosis, and elevated lactic acid. #3 for preoperative evaluation, will obtain an EKG, echocardiogram, and chest x- ray, will consult cardiology for evaluation. #4 insulin-dependent diabetes mellitus, with poor control due to noncompliance last hemoglobin A1c was 9.8 at this time will resume glipizide, Januvia and metformin, and cover was insulin to sliding scale will adjust medications as needed #5 underlying history of hypertension, however when patient was given his home medications of lisinopril and Norvasc, blood pressure was down to 90/56. At this time will continue was lisinopril and hold Norvasc and monitor closely. #6 underlying history of diabetic complications of peripheral neuropathy and retinopathy. #7 poor compliance with medical management, patient had extensive counseling in the last year, his A1c was down to 7.1 in June however it was up to 9.8 again recently. #8 underlying history of hyperlipidemia maintained on atorvastatin continue. #9. Hypotension. 500 mL bolus has been ordered. At this time patient is admitted to medical floor, home medications reviewed and reordered 2-D echo completed showing an EF of 50-55% chest x-ray completed showing suboptimal study low lung volumes and cardiomegaly with patchy basilar atelectasis and or less likely infiltrate I performed an examination of the patient and discussed their management with the Nurse Practitioner. I have reviewed the Nurse Practitioner's notes and agree with the documented findings and plan of care
[2019-01-17 11:43] LABS: Albumin 2.5 g/dL (3.5-5.0); Calcium 7.4 mg/dL (8.4-10.2); Potassium 4.1 mmol/L (3.5-5.1); Total Bilirubin 0.5 mg/dL (0.2-1.3); Total Protein 5.5 g/dL (6.3-8.2)
--- NOTE | 2019-01-17 12:57 | P.CRDCN ---
History of Present Illness Consult date: 01/17/19 Chief complaint: Preoperative cardiac assessment History of present illness: This is a 68-year-old gentleman with past medical history significant for diabetes, hypertension, dyslipidemia, and also peripheral arterial disease who was admitted to the hospital with critical limb ischemia of the right foot. The patient was diagnosed with gangrenous changes involving the right foot and subsequently he was seen by a vascular surgeon, Dr. Bustillos, who did perform on the patient earlier today and amputation of the fourth and fifth right toe. The procedure was uneventful. We involved in the care of the patient because of the extensive medical history and also for further evaluation of low blood pressure. Postoperatively, it was noticed that the patient blood pressure has been on the low side and about 90 mmHg systolic. Currently he is on lisinopril. Beside that his creatinine get worse. The patient clinically denies any symptoms of ch est pain or chest discomfort, shortness of breath, or any feeling of heart racing or fluttering. He underwent an echocardiogram during his hospital stay and that revealed normal LV function was mild MR as well as mild TR. At this point I am going to DC lisinopril, he is receiving IV fluid to support the blood pressure which I would agree, and continue monitor the kidney function and electrolytes. Past Medical History Past Medical History: Diabetes Mellitus, Hyperlipidemia, Hypertension, Myocardial Infarction ([place]), Osteoarthritis ([place]) Additional Past Medical History / Comment(s): SILENT [place]-UNK DATE, NEUROPATHY/FEET,RLS, BROKEN LT ELBOW AND RT ANKLE HAD SX ON BOTH HAS SCREWS IN PLACE, PREVIOUS DIABETIC ULCERS. Wounds Right foot. Last Myocardial Infarction Date:: UNK History of Any Multi-Drug Resistant Organisms: MRSA Date of last positivie culture/infection: 02-04-2015 MDRO Source:: MRSA- right foot wound Past Surgical History: Heart Catheterization Additional Past Surgical History / Comment(s): LT MIDDLE TOE AMPUTION, ORIF LT ELBOW, RT ANKLE HAS SCREWS IN PLACE, PICC LINE LT ARM SINCE REMOVED. Right foot incision and drainage Past Anesthesia/Blood Transfusion Reactions: No Reported Reaction Past Psychological History: No Psychological Hx Reported Smoking Status: Never smoker Past Alcohol Use History: None Reported Past Drug Use History: None Reported - Past Family History Mother Family Medical History: Diabetes Mellitus Additional Family Medical History / Comment(s): CARDIAC PROBLEMS AT AGE 63 Father History Unknown: Yes Additional Family Medical History / Comment(s): father of mrsa in hip post sx 2017 age 91. Medications and Allergies Home Medications Medication Instructions Recorded Confirmed Type HYDROcodone/APAP 10-325MG [[place] 1 tab PO TID PRN 02/03/15 01/15/19 History 10-325] glipiZIDE [Glucotrol] 10 mg PO DAILY 02/03/15 01/15/19 History Insuln Asp Prt/Insulin Aspart 35 unit SQ AC-BRKFST 03/22/16 01/15/19 History [NovoLOG MIX 70-30 VIAL] Brimonidine Tartrate [Alphagan P 1 drops LEFT EYE TID 08/08/18 01/15/19 History 0.2% Ophth Soln] Dorzolamide 2% [Trusopt 2%] 1 drops LEFT EYE TID 08/08/18 01/15/19 History FLUoxetine HCL [PROzac] 20 mg PO DAILY 08/08/18 01/15/19 History Insuln Asp Prt/Insulin Aspart 20 unit SQ HS 08/08/18 01/15/19 History [NovoLOG MIX 70-30 VIAL] Latanoprost/Pf [Latanoprost 0.005% 1 drop LEFT EYE HS 08/08/18 01/15/19 History Eye Drop] Lisinopril 40 mg PO DAILY 08/08/18 01/15/19 History Timolol 0.5% Ophth Soln [Timoptic 1 drop LEFT EYE BID 08/08/18 01/15/19 History 0.5% Ophth Soln] metFORMIN HCL [Glucophage] 500 mg PO BID 08/08/18 01/15/19 History Gabapentin [Neurontin] 100 mg PO DAILY 01/15/19 01/15/19 History Insulin Aspart [NovoLOG] 8 units SQ AC-SUPPER 01/15/19 01/15/19 History rOPINIRole HCL [Requip] 2 mg PO HS 01/15/19 01/15/19 History sitaGLIPtin [Januvia] 100 mg PO DAILY 01/15/19 01/15/19 History Allergies Allergy/AdvReac Type Severity Reaction Status Date / Time No Known Allergies Allergy Verified 01/15/19 21:52 Physical Exam Vitals: Vital Signs Temp Pulse Resp BP Pulse Ox 01/17/19 11:25 80 125/58 01/17/19 11:10 58 L 123/58 01/17/19 10:55 65 95/52 01/17/19 10:10 97.9 F 75 22 104/57 97 01/17/19 09:48 74 16 94/60 97 01/17/19 09:33 98 F 77 16 93/55 97 01/17/19 07:59 97.7 F 71 18 98/53 95 01/17/19 06:06 97.7 F 73 21 84/51 95 01/16/19 23:36 99 01/16/19 23:34 78 22 102/64 83 L 01/16/19 14:24 98.0 F 76 20 97/54 95 Intake and Output 01/16/19 01/17/19 01/17/19 22:59 06:59 14:59 Intake Total 300 1300 Output Total 15 Balance 300 1285 Intake: IV 1300 Oral 300 Output: Estimated Blood Loss 15 Other: Voiding Method Diaper Incontinent # Voids 2 2 # Bowel Movements 1 - Constitutional General appearance: no acute distress - Respiratory Respiratory: bilateral: CTA - Cardiovascular Rhythm: regular Heart sounds: normal: S1, S2 Results 01/17/19 11:01 01/17/19 11:01 Cardiac Enzymes 01/17/19 Range/Units 11:01 AST 30 (17-59) U/L CBC 01/17/19 Range/Units 11:01 WBC 22.9 H (3.8-10.6) k/uL RBC 4.56 (4.30-5.90) m/uL Hgb 13.8 (13.0-17.5) gm/dL Hct 42.8 (39.0-53.0) % Plt Count 190 (150-450) k/uL Comprehensive Metabolic Panel 01/17/19 Range/Units 11:01 Sodium 137 (137-145) mmol/L Potassium 4.1 (3.5-5.1) mmol/L Chloride 106 (98-107) mmol/L Carbon Dioxide 24 (22-30) mmol/L BUN 49 H (9-20) mg/dL Creatinine 2.72 H (0.66-1.25) mg/dL Glucose 104 H (74-99) mg/dL Calcium 7.4 L (8.4-10.2) mg/dL AST 30 (17-59) U/L ALT 25 (21-72) U/L Alkaline Phosphatase 82 (38-126) U/L Total Protein 5.5 L (6.3-8.2) g/dL Albumin 2.5 L (3.5-5.0) g/dL Current Medications Generic Name Dose Route Start Last Admin Trade Name Freq PRN Reason Stop Dose Admin Hydrocodone Bitart/Acetaminophen 1 each 01/15/19 22:17 01/16/19 20:49 [place] 10 PO 1 each TID PRN Administration Pain Brimonidine Tartrate 1 drops 01/16/19 09:00 01/17/19 07:31 Alphagan P 0.2% Ophth Soln LEFT EYE 1 drops TID [place] Administration Dorzolamide HCl 1 drops 01/16/19 09:00 01/17/19 07:31 Trusopt LEFT EYE 1 drops TID [place] Administration Fluoxetine HCl 20 mg 01/16/19 09:00 01/17/19 07:24 Prozac PO Not Given DAILY [place] Gabapentin 100 mg 01/16/19 09:00 01/17/19 07:24 Neurontin PO Not Given TID [place] Glipizide 10 mg 01/16/19 12:15 01/17/19 07:24 Glucotrol PO Not Given DAILY [place] Hydromorphone HCl 0.5 mg 01/17/19 11:20 01/17/19 11:30 Dilaudid IVP 0.5 mg Q3HR PRN Administration Pain Piperacillin Sod/Tazobactam 100 mls @ 25 mls/hr 01/16/19 06:00 01/17/19 12:21 Sod 3.375 gm/ Sodium Chloride IVPB 25 mls/hr Q8H [place] Administration Sodium Chloride 1,000 mls @ 100 mls/hr 01/15/19 22:00 01/17/19 12:20 Saline 0.9% IV 100 mls/hr .Q10H [place] Administration Vancomycin HCl 1,750 mg/ 500 mls @ 167 mls/hr 01/16/19 14:00 01/17/19 05:15 Sodium Chloride IVPB 167 mls/hr Q16H [place] Administration Insulin Aspart 0 unit 01/16/19 07:30 01/17/19 12:12 Novolog SQ Not Given ACHS [facility] Protocol Insulin Aspart 20 unit 01/17/19 21:00 Novolog Mix 70-30 Vial SQ HS [place] Insulin Aspart 35 unit 01/18/19 07:30 Novolog Mix 70-30 Vial SQ AC-BRKFST [place] Latanoprost 1 drops 01/16/19 21:00 01/16/19 20:51 Xalatan 0.005% LEFT EYE 1 drops HS [place] Administration Linagliptin 5 mg 01/16/19 12:15 01/17/19 07:24 Tradjenta PO Not Given DAILY [place] Naloxone HCl 0.2 mg 01/15/19 21:54 Narcan IV Q2M PRN Opioid Reversal Ropinirole HCl 2 mg 01/16/19 21:00 01/16/19 20:50 Requip PO 2 mg HS [place] Administration Timolol Maleate 1 drops 01/16/19 09:00 01/17/19 07:31 Timoptic LEFT EYE 1 drops BID [place] Administration Intake and Output 01/16/19 01/17/19 01/17/19 22:59 06:59 14:59 Intake Total 300 1300 Output Total 15 Balance 300 1285 Intake: IV 1300 Oral 300 Output: Estimated Blood Loss 15 Other: Voiding Method Diaper Incontinent # Voids 2 2 # Bowel Movements 1 01/17/19 11:01 01/17/19 11:01 Assessment and Plan Assessment: Assessment #1 critical limb ischemia of the right foot #2 status post amputation of the fourth and fifth toe on the right #3 hypertension #4 acute renal failure likely related to hypertension #5 multiple comorbid conditions Plan #1 DC lisinopril at this point #2 agree about the IV fluid #3 avoid any nephrotoxic medication #4 monitor the kidney function and electrolytes #5 the echo was reviewed and reveals normal LV function #6 follow-up with the patient Thank you for allowing us participate in his care
[2019-01-17] MEDS: HYDROcodone/APAP 10-325MG 1 EACH TAB PO PRN (15:49)
[2019-01-17 16:56] LABS: Glucose,Whole Blood 122 mg/dL (75-99)
[2019-01-17 20:29] LABS: Glucose,Whole Blood 153 mg/dL (75-99)
[2019-01-17] MEDS ORDERED: INSULN ASP PRT/INSULIN ASPART 100 UNIT/ML 10 ML VIAL SQ SCH (21:00)
--- NOTE | 2019-01-17 21:04 | P.CONS ---
History of Present Illness - Reason for Consult Consult date: 01/17/19 - Chief Complaint Right foot wounds - History of Present Illness 60-year-old male who has multiple medical troubles that includes peripheral vascular disease, coronary artery disease and diabetes mellitus type 2. Is related the patient was doing relatively well this year which point in time he was to be compliant to his medication regimen. However he appears by the fall was having difficulties and stopped his insulin treatments. His blood glucoses increased greatly and his hemoglobin A1c went to nearly 10. The patient now presents to Hospital of evidence of gangrenous changes to his fourth and fifth toes of the right foot. 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 The patient is directly postoperative period he is modestly comfortable but still with some effects of anesthesia. He relates he was not having much pain at home and it was because the areas were worsening and blackening that he sought care. Review of Systems HEENT:Denies headache or acute visual change. Denies sinus or mouth discomforts. Denies neck stiffness or pain. Denies significant oral cavity p ain. Denies difficulty on swallowing. Lungs: Denies significant shortness of breath, cough, sputum production, or hemoptysis. Cardiovascular: Denies significant shortness of breath, chest pain, chest wall pain, orthopnea, dyspnea on exertion, syncope Gastrointestinal:Denies nausea, vomiting, diarrhea, constipation, hematemesis, melena, hematochezia. No no significant change of bowel habit noticed. Musculoskeletal: denies significant myalgias or arthralgias. No new joint swelling. Denies new back pain. Skin: Blackening of the fifth and fourth toes of the right foot Neuro: Denies headache or visual change. Denies any new onset weakness or difficulty with ambulation. Denies falls or seizures. Psychiatric: Unclear why he stopped his medications for the treatment of his diabetes. Endocrine: Fatigue, markedly increased blood glucose Past Medical History Past Medical History: Diabetes Mellitus, Hyperlipidemia, Hypertension, Myocardial Infarction ([place]), Osteoarthritis (OA) Additional Past Medical History / Comment(s): SILENT MN-UNK DATE, NEUROPATHY/FEET,RLS, BROKEN LT ELBOW AND RT ANKLE HAD SX ON BOTH HAS SCREWS IN PLACE, PREVIOUS DIABETIC ULCERS. Wounds Right foot. Last Myocardial Infarction Date:: UNK History of Any Multi-Drug Resistant Organisms: MRSA Year Discovered:: 02-04-2015 MDRO Source:: MRSA- right foot wound Past Surgical History: Heart Catheterization Additional Past Surgical History / Comment(s): LT MIDDLE TOE AMPUTION, ORIF LT ELBOW, RT ANKLE HAS SCREWS IN PLACE, PICC LINE LT ARM SINCE REMOVED. Right foot incision and drainage Past Anesthesia/Blood Transfusion Reactions: No Reported Reaction Past Psychological History: No Psychological Hx Reported Additional Psychological History / Comment(s): Single. Retired. No experience. no animals in the home. Not a current tobacco smoker Smoking Status: Never smoker Past Alcohol Use History: None Reported Past Drug Use History: None Reported - Past Family History Mother Family Medical History: Diabetes Mellitus Additional Family Medical History / Comment(s): CARDIAC PROBLEMS AT AGE 63 Father History Unknown: Yes Additional Family Medical History / Comment(s): father of mrsa in hip post sx 2017 age 91. Medications and Allergies Home Medications and Allergies Comment(s): Current Medications Hydrocodone Bitart/Acetaminophen ([place] 10) 1 each PO TID PRN PRN Reason: Pain Last Admin: 01/17/19 15:49 Dose: 1 each Documented by: Brimonidine Tartrate (Alphagan P 0.2% Oph Soln) 1 drops LEFT EYE TID [facility] Last Admin: 01/17/19 15:55 Dose: 1 drops Documented by: Dorzolamide HCl (Trusopt) 1 drops LEFT EYE TID [facility] Last Admin: 01/17/19 15:55 Dose: 1 drops Documented by: Fluoxetine HCl (Prozac) 20 mg PO DAILY [facility] Last Admin: 01/17/19 07:24 Dose: Not Given Documented by: Gabapentin (Neurontin) 100 mg PO TID [facility] Last Admin: 01/17/19 15:49 Dose: 100 mg Documented by: Glipizide (Glucotrol) 10 mg PO DAILY [facility] Last Admin: 01/17/19 07:24 Dose: Not Given Documented by: Hydromorphone HCl (Dilaudid) 0.5 mg IVP Q3HR PRN PRN Reason: Pain Last Admin: 01/17/19 17:33 Dose: 0.5 mg Documented by: Piperacillin Sod/Tazobactam (Sod 3.375 gm/ Sodium Chloride) 100 mls @ 25 mls/hr IVPB Q8H [facility] Last Admin: 01/17/19 12:21 Dose: 25 mls/hr Documented by: Sodium Chloride (Saline 0.9%) 1,000 mls @ 100 mls/hr IV .Q10H [facility] Last Admin: 01/17/19 12:20 Dose: 100 mls/hr Documented by: Vancomycin HCl 1,750 mg/ (Sodium Chloride) 500 mls @ 167 mls/hr IVPB Q16H [facility] Last Admin: 01/17/19 05:15 Dose: 167 mls/hr Documented by: Insulin Aspart (Novolog) 0 unit SQ ACHS [place]; Protocol Last Admin: 01/17/19 17:36 Dose: Not Given Documented by: Insulin Aspart (Novolog Mix 70-30 Vial) 20 unit SQ HS [place] Insulin Aspart (Novolog Mix 70-30 Vial) 35 unit SQ AC-BRKFST [facility] Latanoprost (Xalatan 0.005%) 1 drops LEFT EYE HS [facility] Last Admin: 01/16/19 20:51 Dose: 1 drops Documented by: Linagliptin (Tradjenta) 5 mg PO DAILY [facility] Last Admin: 01/17/19 07:24 Dose: Not Given Documented by: Naloxone HCl (Narcan) 0.2 mg IV Q2M PRN PRN Reason: Opioid Reversal Ropinirole HCl (Requip) 2 mg PO HS [facility] Last Admin: 01/16/19 20:50 Dose: 2 mg Documented by: Timolol Maleate (Timoptic) 1 drops LEFT EYE BID [facility] Last Admin: 01/17/19 07:31 Dose: 1 drops Documented by: Home Medications Medication Instructions Recorded Confirmed Type HYDROcodone/APAP 10-325MG [Monroe 1 tab PO TID PRN 02/03/15 01/15/19 History 10-325] glipiZIDE [Glucotrol] 10 mg PO DAILY 02/03/15 01/15/19 History Insuln Asp Prt/Insulin Aspart 35 unit SQ AC-BRKFST 03/22/16 01/15/19 History [NovoLOG MIX 70-30 VIAL] Brimonidine Tartrate [Alphagan P 1 drops LEFT EYE TID 08/08/18 01/15/19 History 0.2% Ophth Soln] Dorzolamide 2% [Trusopt 2%] 1 drops LEFT EYE TID 08/08/18 01/15/19 History FLUoxetine HCL [PROzac] 20 mg PO DAILY 08/08/18 01/15/19 History Insuln Asp Prt/Insulin Aspart 20 unit SQ HS 08/08/18 01/15/19 History [NovoLOG MIX 70-30 VIAL] Latanoprost/Pf [Latanoprost 0.005% 1 drop LEFT EYE HS 08/08/18 01/15/19 History Eye Drop] Lisinopril 40 mg PO DAILY 08/08/18 01/15/19 History Timolol 0.5% Ophth Soln [Timoptic 1 drop LEFT EYE BID 08/08/18 01/15/19 History 0.5% Ophth Soln] metFORMIN HCL [Glucophage] 500 mg PO BID 08/08/18 01/15/19 History Gabapentin [Neurontin] 100 mg PO DAILY 01/15/19 01/15/19 History Insulin Aspart [NovoLOG] 8 units SQ AC-SUPPER 01/15/19 01/15/19 History rOPINIRole HCL [Requip] 2 mg PO HS 01/15/19 01/15/19 History sitaGLIPtin [Januvia] 100 mg PO DAILY 01/15/19 01/15/19 History Allergies Allergy/AdvReac Type Severity Reaction Status Date / Time No Known Allergies Allergy Verified 01/15/19 21:52 Physical Exam Vitals: Vital Signs Temp Pulse Resp BP Pulse Ox 01/17/19 13:40 98.4 F 111 H 16 141/83 95 01/17/19 11:25 80 125/58 01/17/19 11:10 58 L 123/58 01/17/19 10:55 65 95/52 01/17/19 10:10 97.9 F 75 22 104/57 97 01/17/19 09:48 74 16 94/60 97 01/17/19 09:33 98 F 77 16 93/55 97 01/17/19 07:59 97.7 F 71 18 98/53 95 01/17/19 06:06 97.7 F 73 21 84/51 95 01/16/19 23:36 99 01/16/19 23:34 78 22 102/64 83 L Intake and Output 01/17/19 01/17/19 01/17/19 06:59 14:59 22:59 Intake Total 1300 540 Output Total 15 200 Balance 1285 340 Intake: IV 1300 Oral 540 Output: Urine 200 Estimated Blood Loss 15 Other: # Voids 2 # Bowel Movements 1 HEENT: Anicteric conjunctiva are pink and moist nasal mucosa grossly intact without significant lesions, there is no thrush. Neck: The neck is supple without significant lymphadenopathy or thyromegaly. Lungs: Good bilateral air entry without significant crackles or wheezing. There is no significant bronchial sounds. There is no egophony or dullness. Heart: Regular rate and rhythm with an audible S1-S2, no S3 no S4. There is no significant murmur click or rub, PMI was nondisplaced. Abdomen: Positive bowel sounds soft and nontender without palpable masses or organomegaly. There was no guarding or rebound. Extremities: The upper extremities without acute lesions. The left foot has no acute open ulcerations. Right foot is with the postoperative dressing from the amputation which is a ray amputation from the fourth and fifth toes. The surgical dressing is dry without evidence of drainage Neuro: The patient is postoperative but he is awake and alert but is still somewhat sedate Results CBC & Chem 7: 01/17/19 11:01 01/17/19 11:01 Labs: Abnormal Lab Results - Last 24 Hours (Table) 01/16/19 01/17/19 01/17/19 Range/Units 23:32 06:59 11:01 WBC (3.8-10.6) k/uL Neutrophils # (1.3-7.7) k/uL BUN 49 H (9-20) mg/dL Creatinine 2.72 H (0.66-1.25) mg/dL Glucose 104 H (74-99) mg/dL POC Glucose (mg/dL) 152 H 115 H (75-99) mg/dL Calcium 7.4 L (8.4-10.2) mg/dL Total Protein 5.5 L (6.3-8.2) g/dL Albumin 2.5 L (3.5-5.0) g/dL 01/17/19 01/17/19 01/17/19 Range/Units 11:01 11:22 16:49 WBC 22.9 H (3.8-10.6) k/uL Neutrophils # 20.2 H (1.3-7.7) k/uL BUN (9-20) mg/dL Creatinine (0.66-1.25) mg/dL Glucose (74-99) mg/dL POC Glucose (mg/dL) 113 H 122 H (75-99) mg/dL Calcium (8.4-10.2) mg/dL Total Protein (6.3-8.2) g/dL Albumin (3.5-5.0) g/dL 01/17/19 Range/Units 20:13 WBC (3.8-10.6) k/uL Neutrophils # (1.3-7.7) k/uL BUN (9-20) mg/dL Creatinine (0.66-1.25) mg/dL Glucose (74-99) mg/dL POC Glucose (mg/dL) 153 H (75-99) mg/dL Calcium (8.4-10.2) mg/dL Total Protein (6.3-8.2) g/dL Albumin (3.5-5.0) g/dL Microbiology - Last 24 Hours (Table) 01/17/19 09:20 Anaerobic Culture - Preliminary Toe - Right Fifth 01/17/19 09:20 Wound Culture - Preliminary Toe - Right Fifth 01/15/19 20:20 Blood Culture - Preliminary Blood No Growth after 24 hours Laboratory Results WBC 22.9 k/uL (3.8-10.6) H 01/17/19 11:01 RBC 4.56 m/uL (4.30-5.90) 01/17/19 11:01 Hgb 13.8 gm/dL (13.0-17.5) 01/17/19 11:01 Hct 42.8 % (39.0-53.0) 01/17/19 11:01 MCV 93.9 fL (80.0-100.0) 01/17/19 11:01 MCH 30.3 pg (25.0-35.0) 01/17/19 11:01 MCHC 32.2 g/dL (31.0-37.0) 01/17/19 11:01 RDW 11.9 % (11.5-15.5) 01/17/19 11:01 Plt Count 190 k/uL (150-450) 01/17/19 11:01 Neutrophils % 88 % 01/17/19 11:01 Lymphocytes % 6 % 01/17/19 11:01 Monocytes % 4 % 01/17/19 11:01 Eosinophils % 1 % 01/17/19 11:01 Basophils % 0 % 01/17/19 11:01 Neutrophils # 20.2 k/uL (1.3-7.7) H 01/17/19 11:01 Lymphocytes # 1.3 k/uL (1.0-4.8) 01/17/19 11:01 Monocytes # 0.9 k/uL (0-1.0) 01/17/19 11:01 Eosinophils # 0.2 k/uL (0-0.7) 01/17/19 11:01 Basophils # 0.0 k/uL (0-0.2) 01/17/19 11:01 Hypochromasia Slight 01/17/19 11:01 Sodium 137 mmol/L (137-145) 01/17/19 11:01 Potassium 4.1 mmol/L (3.5-5.1) 01/17/19 11:01 Chloride 106 mmol/L (98-107) 01/17/19 11:01 Carbon Dioxide 24 mmol/L (22-30) 01/17/19 11:01 Anion Gap 7 mmol/L 01/17/19 11:01 BUN 49 mg/dL (9-20) H 01/17/19 11:01 Creatinine 2.72 mg/dL (0.66-1.25) H 01/17/19 11:01 Est GFR (CKD-EPI)AfAm 27 (>60 ml/min/1.73 sqM) 01/17/19 11:01 Est GFR (CKD-EPI)NonAf 23 (>60 ml/min/1.73 sqM) 01/17/19 11:01 Glucose 104 mg/dL (74-99) H 01/17/19 11:01 POC Glucose (mg/dL) 153 mg/dL (75-99) H 01/17/19 20:13 POC Glu [employer] ID Leia Daley 01/17/19 20:13 Lactic Ac Sepsis Rflx Y 01/16/19 01:23 Plasma Lactic Acid Jose Carlos 1.4 mmol/L (0.7-2.0) 01/16/19 05:28 Calcium 7.4 mg/dL (8.4-10.2) L 01/17/19 11:01 Total Bilirubin 0.5 mg/dL (0.2-1.3) 01/17/19 11:01 AST 30 U/L (17-59) 01/17/19 11:01 ALT 25 U/L (21-72) 01/17/19 11:01 Alkaline Phosphatase 82 U/L (38-126) 01/17/19 11:01 Total Protein 5.5 g/dL (6.3-8.2) L 01/17/19 11:01 Albumin 2.5 g/dL (3.5-5.0) L 01/17/19 11:01 C. difficile (EIA) Intrp Negative (Negative) 01/16/19 15:01 Microbiology 01/17/19 09:20 Toe - Right Fifth Anaerobic Culture - Preliminary 01/17/19 09:20 Toe - Right Fifth Wound Culture - Preliminary 01/15/19 20:20 Blood Blood Culture - Preliminary No Growth after 24 hours Assessment and Plan (1) Gangrene Narrative/Plan: 68-year-old male with long-standing history of multiple medical troubles that includes diabetes mellitus type 2 presents to hospital with evidence of what appears to be gangrenous changes to the right foot fifth toe. Because interchanged and was apparently and with some drainage and odor he sought care. He has not been seen by the vascular surgeon is undergone the rehabilitation to toes 4 and 5. However appears to be other ulceration and he may require further more extensive surgical intervention the next 48 hours. Cultures are pending. Extensive antibiotic therapy with Zosyn and vancomycin is being utilized at this point in time for the diabetic foot ulceration until there is further data. Once surgical interventions are completed we'll then be able to determine a course of antibiotic therapy at discharge. Unclear if he can care for himself in the home setting. Depending on the findings he may be a good candidate for negative pressure therapy. He would be ideal candidate follow-up with the wound healing Center to determine if outpatient hyperbaric oxygen therapy could be utilized for limb salvage. Current Visit: Yes Status: Acute Code(s): I96 - GANGRENE, NOT ELSEWHERE CL ASSIFIED SNOMED Code(s): 142391830 (2) Hyperglycemia Current Visit: Yes Status: Acute Code(s): R73.9 - HYPERGLYCEMIA, UNSPECIFIED SNOMED Code(s): 68825857 (3) Lower extremity cellulitis Current Visit: No Status: Acute Code(s): L03.119 - CELLULITIS OF UNSPECIFIED PART OF LIMB SNOMED Code(s): 932879608
[2019-01-17] MEDS: LATANOPROST 0.005% OPHTH DROPS 2.5 ML BTL LEFT EYE SCH (21:27)
[2019-01-18] MEDS: SODIUM CHLORIDE 0.9% 1,000 ML IV SCH ×3 (00:03→20:09)
[2019-01-18] MEDS: HYDROmorphone 0.5 MG/0.5 ML SYRINGE IVP PRN (03:16)
[2019-01-18] MEDS: PIPERACILLIN-TAZOBACTAM 3.375 GM in SODIUM CHLORIDE 0.9% 100 ML IVPB SCH ×2 (05:51→20:09)
[2019-01-18 07:11] LABS: Glucose,Whole Blood 97 mg/dL (75-99)
[2019-01-18] MEDS: INSULIN ASPART (NovoLOG) 100 UNIT/ML VIAL SQ SCH ×3 (07:29→18:23)
[2019-01-18] MEDS: glipiZIDE 10 MG TAB PO SCH (07:29)
[2019-01-18] MEDS: LINAGLIPTIN 5 MG TABLET PO SCH (07:29)
[2019-01-18] MEDS: GABAPENTIN 100 MG CAP PO SCH ×3 (07:29→21:26)
[2019-01-18] MEDS: FLUoxetine HCL 20 MG CAP PO SCH (07:29)
[2019-01-18] MEDS: BRIMONIDINE TARTRATE 0.2% DROPS 5 ML BTL LEFT EYE SCH ×3 (07:30→22:39)
[2019-01-18] MEDS: TIMOLOL 0.5% OPHTH DROPS 5 ML BTL LEFT EYE SCH ×2 (07:30→22:38)
[2019-01-18] MEDS: INSULN ASP PRT/INSULIN ASPART 100 UNIT/ML 10 ML VIAL SQ SCH (07:30)
[2019-01-18] MEDS: DORZOLAMIDE HCL 2% DROPS 10 ML BTL LEFT EYE SCH ×3 (07:31→22:39)
[2019-01-18 08:25] LABS: Basophils % (A) 0 %; Eosinophils # (A) 0.1 k/uL (0-0.7); Eosinophils % (A) 1 %; HCT 40.7 % (39.0-53.0); HGB 12.7 gm/dL (13.0-17.5); Hypochromasia Slight; Lymphocytes # (A) 1.1 k/uL (1.0-4.8); Lymphocytes % (A) 6 %; MCH 29.5 pg (25.0-35.0); MCHC 31.2 g/dL (31.0-37.0); MCV 94.6 fL (80.0-100.0); Mean Platelet Volume 9.7; Monocytes # (A) 0.9 k/uL (0-1.0); Monocytes % (A) 5 %; Neutrophils # (A) 16.8 k/uL (1.3-7.7); Neutrophils % (A) 88 %; Platelet Count 201 k/uL (150-450); RDW 12.1 % (11.5-15.5); WBC 19.2 k/uL (3.8-10.6)
[2019-01-18 08:31] LABS: Albumin 2.4 g/dL (3.5-5.0); Calcium 7.2 mg/dL (8.4-10.2); Potassium 4.2 mmol/L (3.5-5.1); Total Bilirubin 0.5 mg/dL (0.2-1.3); Total Protein 5.4 g/dL (6.3-8.2)
[2019-01-18] MEDS ORDERED: VANCOMYCIN IV PER PHARMACY 1 EACH MISC MISCELLANE PRN (09:11)
[2019-01-18] MEDS: HYDROcodone/APAP 10-325MG 1 EACH TAB PO PRN (09:11)
--- NOTE | 2019-01-18 10:09 | P.PN ---
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 Granger, waking up this morning slightly slow to respond but not confused, breathing comfortably denies any chest pain labs reviewed today patient has been evaluated by Dr. Bassett, white cell count is coming down to 19,000, lactic acid level is normalized, patient has been on broad-spectrum antibiotics with vascular surgery on board Objective - Vital Signs Vital signs: Vital Signs Temp 99.8 F H 01/18/19 05:00 Pulse 87 01/18/19 05:00 Resp 20 01/18/19 05:00 BP 121/68 01/18/19 05:00 Pulse Ox 97 01/18/19 05:00 Intake & Output 01/17/19 01/18/19 01/18/19 18:59 06:59 18:59 Intake Total 1840 200 Output Total 215 Balance 1625 200 Intake: IV 1300 Oral 540 200 Output: Urine 200 Estimated Blood Loss 15 Other: Voiding Method Diaper Diaper Incontinent Incontinent # Voids 1 # Bowel Movements 1 - Exam In general patient is alert and oriented 3 in no apparent distress HEENT head normocephalic and atraumatic Neck is supple no JVD no goiter no lymphadenopathy Chest exam reveals a few scattered rhonchi no wheezing Cardiac exam reveals regular heart sounds S1 and S2 no gallops no murmurs Abdomen is soft nontender no organomegaly with normal bowel sounds Extremity exam reveals minimal edema there is blackish discoloration of the right fifth toe with surrounding erythema involving the distal part of the right foot Neuro no gross focal neurological deficit - Labs CBC & Chem 7: 01/18/19 07:48 01/18/19 07:48 Labs: Abnormal Lab Results - Last 24 Hours (Table) 01/17/19 01/17/19 01/17/19 Range/Units 11:01 11:01 11:22 WBC 22.9 H (3.8-10.6) k/uL Hgb (13.0-17.5) gm/dL Neutrophils # 20.2 H (1.3-7.7) k/uL Chloride (98-107) mmol/L Carbon Dioxide (22-30) mmol/L BUN 49 H (9-20) mg/dL Creatinine 2.72 H (0.66-1.25) mg/dL Glucose 104 H (74-99) mg/dL POC Glucose (mg/dL) 113 H (75-99) mg/dL Calcium 7.4 L (8.4-10.2) mg/dL Total Protein 5.5 L (6.3-8.2) g/dL Albumin 2.5 L (3.5-5.0) g/dL 01/17/19 01/17/19 01/18/19 Range/Units 16:49 20:13 07:48 WBC (3.8-10.6) k/uL Hgb (13.0-17.5) gm/dL Neutrophils # (1.3-7.7) k/uL Chloride 109 H (98-107) mmol/L Carbon Dioxide 20 L (22-30) mmol/L BUN 56 H (9-20) mg/dL Creatinine 3.55 H (0.66-1.25) mg/dL Glucose (74-99) mg/dL POC Glucose (mg/dL) 122 H 153 H (75-99) mg/dL Calcium 7.2 L (8.4-10.2) mg/dL Total Protein 5.4 L (6.3-8.2) g/dL Albumin 2.4 L (3.5-5.0) g/dL 01/18/19 Range/Units 07:48 WBC 19.2 H (3.8-10.6) k/uL Hgb 12.7 L (13.0-17.5) gm/dL Neutrophils # 16.8 H (1.3-7.7) k/uL Chloride (98-107) mmol/L Carbon Dioxide (22-30) mmol/L BUN (9-20) mg/dL Creatinine (0.66-1.25) mg/dL Glucose (74-99) mg/dL POC Glucose (mg/dL) (75-99) mg/dL Calcium (8.4-10.2) mg/dL Total Protein (6.3-8.2) g/dL Albumin (3.5-5.0) g/dL Microbiology - Last 24 Hours (Table) 01/15/19 20:20 Blood Culture - Preliminary Blood No Growth after 48 hours 01/17/19 09:20 Gram Stain - Preliminary Toe - Right Fifth Wound Culture - Preliminary 01/17/19 09:20 Anaerobic Culture - Preliminary Toe - Right Fifth Assessment and Plan Assessment: Gangrene of right fifth toe Surrounding cellulitis of right foot Sepsis Insulin-dependent diabetes mellitus poorly controlled Hypertension hypertensive cardiovascular disease Dyslipidemia Plan: Continue gentle hydration Broad-spectrum antibiotics Patient has been consulted with vascular surgery preop evaluation underway Time with Patient: Greater than 30
[2019-01-18 11:41] LABS: Glucose,Whole Blood 77 mg/dL (75-99)
[2019-01-18 13:06] LABS: Glucose,Whole Blood 65 mg/dL (75-99)
[2019-01-18 13:28] LABS: Glucose,Whole Blood 65 mg/dL (75-99)
[2019-01-18 13:59] LABS: Glucose,Whole Blood 80 mg/dL (75-99)
--- NOTE | 2019-01-18 14:18 | P.PN ---
Subjective Progress Note Date: 01/18/19 Principal diagnosis: Hypertension This is a 68-year-old gentleman with past medical history significant for diabetes, hypertension, dyslipidemia, and also peripheral arterial disease who was admitted to the hospital with critical limb ischemia of the right foot. The patient was diagnosed with gangrenous changes involving the right foot and subsequently he was seen by a vascular surgeon, Dr. Bustillos, who did perform on the patient earlier today and amputation of the fourth and fifth right toe. The procedure was uneventful. We involved in the care of the patient because of the extensive medical history and also for further evaluation of low blood pressure. Postoperatively, it was noticed that the patient blood pressure has been on the low side and about 90 mmHg systolic. Currently he is on lisinopril. Beside that his creatinine get worse. The patient clinically denies any symptoms of chest pain or chest discomfort, shortness of breath, or any feeling of heart ra cing or fluttering. He underwent an echocardiogram during his hospital stay and that revealed normal LV function was mild MR as well as mild TR. The patient was seen today, 01/18/2019. He is slightly lethargic. Hemodynamically he is stable and the blood pressure has improved after we stop the lisinopril yesterday. The kidney function is slightly worse today. He denies any symptoms of chest pain or chest discomfort or shortness of breath. There is some issues with his glucose being on the low side. Objective - Vital Signs Vital signs: Vital Signs Temp 99.8 F H 01/18/19 05:00 Pulse 87 01/18/19 05:00 Resp 20 01/18/19 05:00 BP 121/68 01/18/19 05:00 Pulse Ox 97 01/18/19 05:00 Intake & Output 01/17/19 01/18/19 01/18/19 18:59 06:59 18:59 Intake Total 1840 200 320 Output Total 215 Balance 1625 200 320 Intake: IV 1300 Oral 540 200 320 Output: Urine 200 Estimated Blood Loss 15 Other: Voiding Method Diaper Diaper Incontinent Incontinent # Voids 1 1 # Bowel Movements 1 - Constitutional General appearance: Present: no acute distress - Respiratory Respiratory: bilateral: diminished - Cardiovascular Heart sounds: normal: S1, S2 - Labs CBC & Chem 7: 01/18/19 07:48 01/18/19 07:48 Labs: Abnormal Lab Results - Last 24 Hours (Table) 01/17/19 01/17/19 01/18/19 Range/Units 16:49 20:13 07:48 WBC (3.8-10.6) k/uL Hgb (13.0-17.5) gm/dL Neutrophils # (1.3-7.7) k/uL Chloride 109 H (98-107) mmol/L Carbon Dioxide 20 L (22-30) mmol/L BUN 56 H (9-20) mg/dL Creatinine 3.55 H (0.66-1.25) mg/dL POC Glucose (mg/dL) 122 H 153 H (75-99) mg/dL Calcium 7.2 L (8.4-10.2) mg/dL Total Protein 5.4 L (6.3-8.2) g/dL Albumin 2.4 L (3.5-5.0) g/dL 01/18/19 01/18/19 01/18/19 Range/Units 07:48 12:55 13:16 WBC 19.2 H (3.8-10.6) k/uL Hgb 12.7 L (13.0-17.5) gm/dL Neutrophils # 16.8 H (1.3-7.7) k/uL Chloride (98-107) mmol/L Carbon Dioxide (22-30) mmol/L BUN (9-20) mg/dL Creatinine (0.66-1.25) mg/dL POC Glucose (mg/dL) 65 L 65 L (75-99) mg/dL Calcium (8.4-10.2) mg/dL Total Protein (6.3-8.2) g/dL Albumin (3.5-5.0) g/dL Microbiology - Last 24 Hours (Table) 01/15/19 20:20 Blood Culture - Preliminary Blood No Growth after 48 hours 01/17/19 09:20 Gram Stain - Preliminary Toe - Right Fifth Wound Culture - Preliminary 01/17/19 09:20 Anaerobic Culture - Preliminary Toe - Right Fifth Assessment and Plan Assessment: Assessment #1 critical limb ischemia of the right foot #2 status post amputation of the fourth and fifth toe on the right #3 hypertension #4 acute renal failure likely related to hypertension #5 multiple comorbid conditions Plan #1 continue holding the blood pressure medications including lisinopril #2 continue avoiding any nephrotoxic medications #3 continue monitoring the kidney function #4 follow-up with the patient Thank you for allowing us participate in his care
[2019-01-18 15:07] LABS: Glucose,Whole Blood 119 mg/dL (75-99)
[2019-01-18 15:21] LABS: ABG Base Excess -3.3 mmol/L; ABG HCO3 26 mmol/L (21-25); ABG Oxygen Saturation 95.6 % (94-97); ABG PO2 95 mmHg (83-108); ABG TCO2 29 mmol/L (19-24); Allen Test Performed? Yes
[2019-01-18] MEDS ORDERED: PHENYLEPHRINE 10 MG/ML VIAL ONE (15:30)
[2019-01-18] MEDS ORDERED: SUCCINYLCHOLINE CHLORIDE VIAL 200 MG/10 ML VIAL IV ONE (15:30)
[2019-01-18] MEDS ORDERED: PROPOFOL 10 MG/ML 20 ML VIAL IV ONE (15:30)
[2019-01-18 15:31] LABS: ABG PCO2 81 mmHg (35-45)
--- NOTE | 2019-01-18 16:03 | XR ---
EXAMINATION TYPE: XR chest 1V portable DATE OF EXAM: 01/18/2019 CLINICAL HISTORY: Difficulty breathing had to be intubated. TECHNIQUE: Single AP portable supine view of the chest is obtained. COMPARISON: Chest x-ray from 2 days earlier FINDINGS: There is new endotracheal tube with tip at cheryl, advise pulling back 4 to 5 cm. New orog astric tube projects below diaphragm. Persistent cardiomegaly with low lung volumes and bibasilar atelectasis and/or infiltrate. Suspect ce ntral vascular congestion on current study. Cannot exclude small left pleural effusion. No pneumothor ax. IMPRESSION: 1. New orogastric tube projects likely below diaphragm though tip is not well seen. Consider abdomina l KUB x-ray. 2. New endotracheal tube tip at cheryl, advise pulling back 4 to 5 cm to be in more ideal position. 3. Cardiomegaly and low lung volumes with bibasilar acute atelectasis and/or infiltrate and probable small left pleural effusion all redemonstrated. Possible new mild central vascular congestion. Correl ate clinically. Results of low-lying ET tube called to ICU by x-ray technologist.
[2019-01-18] MEDS: PROPOFOL 1,000 MG in EMPTY BAG 1 BAG IV SCH ×2 (16:42→20:09)
--- NOTE | 2019-01-18 16:45 | P.PN ---
Subjective Progress Note Date: 01/18/19 [facility] and [facility] Upon that evaluation he was lethargic, essentially not responding to questions as he had been previously. He was tachypnic and tachycardic. Appearing generally ill. Nurse was called to the room stat and blood sugar and a set of vitals was performed. All appeared adequate. At that time did recommend transferring to ICU and likely a blood gas. Recommended the nurse discuss with primary care admitting physician. Per nursing the patient has had some issue with his blood sugars but overall had not been looking like this prior to my clinical evaluation. The patient was then revisited in the ICU subsequently was intubated due to a pH of 7.11 on ABG and significant work of breathing with tachypnea. Post intubation chest x-ray is pending. OG tube was placed with significant output, nonbloody, nonbilious. Heart is regular. Lungs are clear. Abdomen is soft, no apparent tenderness. The right lower extremity dressing was removed, there was no evidence of purulent drainage or discharge. Some areas of minimal necrotic tissues but overall much improved from previous. No fluctuant areas in the right leg. No overt signs of continued ongoing abscess or wet gangrene. There is still some edema in his bilateral lower extremities slightly worse on the right. Long discussion was had with the patient's and his brother regarding his whole clinical picture and the guarded prognosis. She still wishes that he remain full code at this time Objective - Vital Signs Vital signs: Vital Signs Temp 98.7 F 01/18/19 14:20 Pulse 75 01/18/19 15:55 Resp 17 01/18/19 15:55 BP 119/65 01/18/19 15:55 Pulse Ox 98 01/18/19 15:55 Intake & Output 01/17/19 01/18/19 01/18/19 18:59 06:59 18:59 Intake Total 1840 200 320 Output Total 215 Balance 1625 200 320 Intake: IV 1300 Oral 540 200 320 Output: Urine 200 Estimated Blood Loss 15 Other: Voiding Method Diaper Diaper Incontinent Incontinent # Voids 1 1 # Bowel Movements 1 - Labs CBC & Chem 7: 01/18/19 07:48 01/18/19 07:48 Labs: Abnormal Lab Results - Last 24 Hours (Table) 01/17/19 01/17/1919 Range/Units 16:49 20:13 07:48 WBC (3.8-10.6) k/uL Hgb (13.0-17.5) gm/dL Neutrophils # (1.3-7.7) k/uL ABG pH (7.35-7.45) ABG pCO2 (35-45) mmHg ABG HCO3 (21-25) mmol/L ABG Total CO2 (19-24) mmol/L Chloride 109 H (98-107) mmol/L Carbon Dioxide 20 L (22-30) mmol/L BUN 56 H (9-20) mg/dL Creatinine 3.55 H (0.66-1.25) mg/dL POC Glucose (mg/dL) 122 H 153 H (75-99) mg/dL Calcium 7.2 L (8.4-10.2) mg/dL Total Protein 5.4 L (6.3-8.2) g/dL Albumin 2.4 L (3.5-5.0) g/dL 01/18/19 01/18/19 01/18/19 Range/Units 07:48 12:55 13:16 WBC 19.2 H (3.8-10.6) k/uL Hgb 12.7 L (13.0-17.5) gm/dL Neutrophils # 16.8 H (1.3-7.7) k/uL ABG pH (7.35-7.45) ABG pCO2 (35-45) mmHg ABG HCO3 (21-25) mmol/L ABG Total CO2 (19-24) mmol/L Chloride (98-107) mmol/L Carbon Dioxide (22-30) mmol/L BUN (9-20) mg/dL Creatinine (0.66-1.25) mg/dL POC Glucose (mg/dL) 65 L 65 L (75-99) mg/dL Calcium (8.4-10.2) mg/dL Total Protein (6.3-8.2) g/dL Albumin (3.5-5.0) g/dL 01/18/19 01/18/19 Range/Units 14:56 15:15 WBC (3.8-10.6) k/uL Hgb (13.0-17.5) gm/dL Neutrophils # (1.3-7.7) k/uL ABG pH 7.12 L* (7.35-7.45) ABG pCO2 81 H* (35-45) mmHg ABG HCO3 26 H (21-25) mmol/L ABG Total CO2 29 H (19-24) mmol/L Chloride (98-107) mmol/L Carbon Dioxide (22-30) mmol/L BUN (9-20) mg/dL Creatinine (0.66-1.25) mg/dL POC Glucose (mg/dL) 119 H (75-99) mg/dL Calcium (8.4-10.2) mg/dL Total Protein (6.3-8.2) g/dL Albumin (3.5-5.0) g/dL Microbiology - Last 24 Hours (Table) 01/15/19 20:20 Blood Culture - Preliminary Blood No Growth after 48 hours 01/17/19 09:20 Gram Stain - Preliminary Toe - Right Fifth Wound Culture - Preliminary 01/17/19 09:20 Anaerobic Culture - Preliminary Toe - Right Fifth Assessment and Plan Assessment: 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 There is no continued overt sign of wet gangrene. He needs proper continued resuscitation. No further intervention currently planned due to his critical appearance. Initially was considering the possible need for a guillotine amputation of the foot but again it does not appear that there is any continued evidence of infection in this area. The source is controlled with the open wound. No fluctuant areas or tunneling or tracking. Avoid nephrotoxins, likely need to configure antibiotic regimen differently. Would recommend nephrology consultation.
--- NOTE | 2019-01-18 16:51 | XR ---
EXAMINATION TYPE: XR chest 1V portable DATE OF EXAM: 01/18/2019 CLINICAL HISTORY: ET tube adjustment. TECHNIQUE: Single AP portable semiupright view of the chest is obtained. COMPARISON: Chest x-ray from earlier today an older studies FINDINGS: There is better visualization of orogastric tube projecting below diaphragm. There is impr demario positioning of endotracheal tube just below inferior clavicular margin approximately 4 to 5 cm a jose cheryl. There is persistent low lung volumes and cardiomegaly with bibasilar opacities and central vascular c ongestion. Osseous structures are intact. IMPRESSION: 1. Improved positioning of endotracheal tube. Satisfactory positioning of orogastric tube confirmed. 2. Low lung volumes and cardiomegaly with central vascular congestion and bibasilar acute infiltrate and/or atelectasis with probable small bilateral pleural effusions are all redemonstrated.
[2019-01-18 17:02] LABS: ABG Base Excess -2.8 mmol/L; ABG HCO3 24 mmol/L (21-25); ABG Oxygen Saturation 99.6 % (94-97); ABG PCO2 55 mmHg (35-45); ABG PH 7.25 (7.35-7.45); ABG PO2 253 mmHg (83-108); ABG TCO2 26 mmol/L (19-24); Allen Test Performed? Yes
[2019-01-18] MEDS ORDERED: SODIUM CHLORIDE 0.9% 1,000 ML IV ONE (17:22)
[2019-01-18 17:38] LABS: Amorphous Sediment,Urine Few /hpf; Appearance,Urine Cloudy (Clear); Bilirubin,Urine Negative (Negative); Blood,Urine Negative (Negative); Color,Urine Yellow; Glucose,Urine (UA) 1+ (Negative); Ketones,Urine Negative (Negative); Leukocyte Esterase,Urine Negative (Negative); Nitrite,Urine Negative (Negative); Protein,Urine 1+ (Negative); Specific Gravity,Urine 1.018 (1.001-1.035); Urobilinogen,Urine <2.0 mg/dL (<2.0); WBC,Urine 2 /hpf (0-5)
[2019-01-18 18:20] LABS: Glucose,Whole Blood 96 mg/dL (75-99)
--- NOTE | 2019-01-18 19:43 | CT ---
EXAMINATION TYPE: CT brain wo con DATE OF EXAM: 01/18/2019 COMPARISON: March 22, 2016 HISTORY: Unequal pupils. CT DLP: 1131.4 mGycm Automated exposure control for dose reduction was used. FINDINGS: There is cerebral cortical atrophy. There is no mass effect nor midline shift. There is no sign of in tracranial hemorrhage. The calvarium is intact. There is some debris in the external auditory canals bilaterally. IMPRESSION: CEREBRAL ATROPHY. NO ACUTE INTRACRANIAL ABNORMALITY. DEBRIS IN THE EXTERNAL AUDITORY CANALS. NO CHANGE COMPARED TO OLD EXAM.
--- NOTE | 2019-01-18 21:01 | US ---
EXAMINATION TYPE: US kidneys/renal and bladder DATE OF EXAM: 01/18/2019 COMPARISON: US 2011 CLINICAL HISTORY: acute kidney injury. DIANNA, patient on vent, exam done portable in ICU. EXAM MEASUREMENTS: Right Kidney: 12.8 x 5.8 x 5.3 cm Left Kidney: 12.8 x 6.3 x 5.8 cm Difficult and limited study due to patient body habitus Right Kidney: no hydronephrosis or masses seen Left Kidney: 1.7cm cystic area mid pole, 0.7cm echogenic focus mid pole Bladder: not distended, edward catheter in place IMPRESSION: No evidence of renal obstruction. 1.7 cm interpolar left renal cortical cyst. Echogenic focus in the left kidney could be a nonobstructing calculus. No renal atrophy.
[2019-01-18] MEDS: CHLORHEXIDINE GLUCONATE 15 ML CUP MUCOUS MEM SCH (21:26)
[2019-01-18] MEDS: LATANOPROST 0.005% OPHTH DROPS 2.5 ML BTL LEFT EYE SCH (22:38)
[2019-01-19 00:04] LABS: Glucose,Whole Blood 31 mg/dL (75-99)
[2019-01-19 00:04] LABS: Glucose,Whole Blood 28 mg/dL (75-99)
[2019-01-19] MEDS: INSULIN ASPART (NovoLOG) 100 UNIT/ML VIAL SQ SCH ×4 (00:06→18:27)
[2019-01-19 00:29] LABS: Glucose,Whole Blood 72 mg/dL (75-99)
[2019-01-19] MEDS: PROPOFOL 1,000 MG in EMPTY BAG 1 BAG IV SCH ×4 (00:52→22:35)
[2019-01-19 01:47] LABS: Glucose,Whole Blood 84 mg/dL (75-99)
[2019-01-19 04:21] LABS: Basophils % (A) 0 %; Eosinophils # (A) 0.2 k/uL (0-0.7); Eosinophils % (A) 1 %; HCT 36.7 % (39.0-53.0); HGB 11.6 gm/dL (13.0-17.5); Lymphocytes # (A) 1.2 k/uL (1.0-4.8); Lymphocytes % (A) 7 %; MCH 29.1 pg (25.0-35.0); MCHC 31.5 g/dL (31.0-37.0); MCV 92.3 fL (80.0-100.0); Mean Platelet Volume 10.6; Monocytes # (A) 0.7 k/uL (0-1.0); Monocytes % (A) 4 %; Neutrophils # (A) 13.8 k/uL (1.3-7.7); Neutrophils % (A) 86 %; Platelet Count 192 k/uL (150-450); RBC 3.98 m/uL (4.30-5.90); RDW 12.2 % (11.5-15.5); WBC 16.1 k/uL (3.8-10.6)
[2019-01-19 04:38] LABS: Albumin 2.2 g/dL (3.5-5.0); Calcium 6.8 mg/dL (8.4-10.2); Magnesium 2.1 mg/dL (1.6-2.3); Potassium 3.5 mmol/L (3.5-5.1); Total Bilirubin 0.4 mg/dL (0.2-1.3); Total Protein 4.9 g/dL (6.3-8.2)
[2019-01-19 04:52] LABS: ABG Base Excess -2.3 mmol/L; ABG HCO3 23 mmol/L (21-25); ABG Oxygen Saturation 97.1 % (94-97); ABG PCO2 41 mmHg (35-45); ABG PH 7.36 (7.35-7.45); ABG PO2 92 mmHg (83-108); ABG TCO2 24 mmol/L (19-24); Allen Test Performed? Yes
[2019-01-19 05:15] LABS: Glucose,Whole Blood 95 mg/dL (75-99)
[2019-01-19] MEDS: SODIUM CHLORIDE 0.9% 1,000 ML IV SCH ×2 (05:47→18:38)
[2019-01-19] MEDS: PIPERACILLIN-TAZOBACTAM 3.375 GM in SODIUM CHLORIDE 0.9% 100 ML IVPB SCH ×2 (05:47→18:38)
[2019-01-19] MEDS: NOREPINEPHRINE 4 MG in SODIUM CHLORIDE 0.9% 250 ML IV SCH ×2 (06:30→16:44)
[2019-01-19] MEDS: INSULN ASP PRT/INSULIN ASPART 100 UNIT/ML 10 ML VIAL SQ SCH (06:31)
--- NOTE | 2019-01-19 07:14 | P.PCN ---
Date of Procedure: 01/18/19 Procedure(s) Performed: Left radial A-line placement= left radial airline placed, sterile technique, using 20-gauge Angiocath, the A-line was secured with Tegaderm and tape, patient tolerated the procedure well without complication, indication for the A-line , because the patient wants hemodynamically unstable. Procedure was done and 23 :30 01/18/2019
--- NOTE | 2019-01-19 07:15 | P.PCN ---
Date of Procedure: 01/18/19 Procedure(s) Performed: Placement of left external jugular vein IV access, the patient had very poor IV access, and there was need for IV antibiotic, for this reason I placed left external jugular IV, sterile technique, 18-gauge Angiocath, placed in sterile technique and secured with Tegaderm and tape, patient tolerated the procedure well without medications, and this is a late entry for the procedure that was done, on 01/18/2019 at 2330
[2019-01-19 08:12] LABS: Glucose,Whole Blood 69 mg/dL (75-99)
[2019-01-19 08:28] LABS: Glucose,Whole Blood 102 mg/dL (75-99)
[2019-01-19] MEDS: glipiZIDE 10 MG TAB PO SCH (08:28)
[2019-01-19] MEDS: LINAGLIPTIN 5 MG TABLET PO SCH (08:29)
[2019-01-19] MEDS: FLUoxetine HCL 20 MG CAP PO SCH (08:29)
[2019-01-19] MEDS: GABAPENTIN 100 MG CAP PO SCH ×3 (08:29→21:10)
[2019-01-19] MEDS: DORZOLAMIDE HCL 2% DROPS 10 ML BTL LEFT EYE SCH ×3 (09:38→20:51)
[2019-01-19] MEDS: CHLORHEXIDINE GLUCONATE 15 ML CUP MUCOUS MEM SCH ×2 (09:38→21:10)
[2019-01-19] MEDS: TIMOLOL 0.5% OPHTH DROPS 5 ML BTL LEFT EYE SCH ×2 (09:38→20:51)
[2019-01-19] MEDS: BRIMONIDINE TARTRATE 0.2% DROPS 5 ML BTL LEFT EYE SCH ×3 (09:39→20:51)
[2019-01-19] MEDS ORDERED: DEXTROSE 5%-0.9% NACL 1,000 ML IV SCH (09:45)
--- NOTE | 2019-01-19 09:52 | XR ---
EXAMINATION TYPE: XR chest 1V portable DATE OF EXAM: 01/19/2019 COMPARISON: 01/18/2019 HISTORY: SOB, Follow Up FINDINGS: Indwelling tubes and catheters are unchanged. No change in bibasilar opacities. Stable appearance of the cardio-mediastinal structures at this time. Pleural effusion unchanged. IMPRESSION: 1. Stable portable chest. Clinical correlation and follow up until resolution is recommended.
--- NOTE | 2019-01-19 10:27 | P.PN ---
Subjective Progress Note Date: 01/19/19 Patient seen and examined. No issues overnight per nursing. sedation vacation, following commands per nsg. Objective - Vital Signs Vital signs: Vital Signs Temp 98.2 F 01/19/19 04:00 Pulse 74 01/19/19 10:00 Resp 18 01/19/19 10:00 BP 80/48 01/19/19 07:00 Pulse Ox 94 L 01/19/19 10:00 Intake & Output 01/18/19 01/19/19 01/19/19 18:59 06:59 18:59 Intake Total 3960.565 0746.371 776.474 Output Total 480 1735 65 Balance 751.891 6906.371 711.474 Weight 117.5 kg Intake: IV 700 2700 700 Piperacillin-Tazobactam 3 100 .375 gm In Sodium Chloride 0.9% 100 ml @ 25 mls/hr IVPB Q12H [place] Rx# :[id number] Sodium Chloride 0.9% 1, 200 1100 200 000 ml @ 100 mls/hr IV . Q10H [place] Rx#:[id number] Sodium Chloride 0.9% 1, 500 1500 500 000 ml @ 500 mls/hr IV . Q2H [facility] Rx#:[id number] Intake, IV Titration 5.779 262.371 76.474 Amount Norepinephrine 4 mg In 15.146 Sodium Chloride 0.9% 250 ml @ 0.05 MCG/KG/MIN 22. 384 mls/hr IV .[id number] [place] Rx#:[id number] Propofol 1,000 mg In 5.779 262.371 61.328 Empty Bag 1 bag @ Titrate IV .Q0M [place] Rx#: [id number] Oral 320 Output: Gastric Drainage 1400 Urine 480 335 65 Other: Voiding Method Indwelling Catheter Indwelling Catheter Indwelling Catheter # Voids 1 ABP, PAP, CO, CI - Last Documented Arterial Blood Pressure 140/54 - Exam No acute distress, intubated, we sedated at this time Heart regular Lungs coarse but clear otherwise Abdomen soft, rotund Extremities right lower extremity surgery decreased edema. Dressing clean, dry and intact - Labs CBC & Chem 7: 01/19/19 04:35 01/19/19 04:35 Labs: Abnormal Lab Results - Last 24 Hours (Table) 01/18/19 01/18/19 01/18/19 Range/Units 12:55 13:16 14:56 WBC (3.8-10.6) k/uL RBC (4.30-5.90) m/uL Hgb (13.0-17.5) gm/dL Hct (39.0-53.0) % Neutrophils # (1.3-7.7) k/uL ABG pH (7.35-7.45) ABG pCO2 (35-45) mmHg ABG pO2 (83-108) mmHg ABG HCO3 (21-25) mmol/L ABG Total CO2 (19-24) mmol/L ABG O2 Saturation (94-97) % Chloride (98-107) mmol/L BUN (9-20) mg/dL Creatinine (0.66-1.25) mg/dL Glucose (74-99) mg/dL POC Glucose (mg/dL) 65 L 65 L 119 H (75-99) mg/dL Calcium (8.4-10.2) mg/dL Total Protein (6.3-8.2) g/dL Albumin (3.5-5.0) g/dL Urine Protein (Negative) Urine Glucose (UA) (Negative) Amorphous Sediment (None) /hpf 01/18/19 01/18/19 01/18/19 Range/Units 15:15 16:55 17:04 WBC (3.8-10.6) k/uL RBC (4.30-5.90) m/uL Hgb (13.0-17.5) gm/dL Hct (39.0-53.0) % Neutrophils # (1.3-7.7) k/uL ABG pH 7.12 L* 7.25 L (7.35-7.45) ABG pCO2 81 H* 55 H (35-45) mmHg ABG pO2 253 H (83-108) mmHg ABG HCO3 26 H (21-25) mmol/L ABG Total CO2 29 H 26 H (19-24) mmol/L ABG O2 Saturation 99.6 H (94-97) % Chloride (98-107) mmol/L BUN (9-20) mg/dL Creatinine (0.66-1.25) mg/dL Glucose (74-99) mg/dL POC Glucose (mg/dL) (75-99) mg/dL Calcium (8.4-10.2) mg/dL Total Protein (6.3-8.2) g/dL Albumin (3.5-5.0) g/dL Urine Protein 1+ H (Negative) Urine Glucose (UA) 1+ H (Negative) Amorphous Sediment Few H (None) /hpf 01/19/19 01/19/19 01/19/19 Range/Units 00:00 00:02 00:27 WBC (3.8-10.6) k/uL RBC (4.30-5.90) m/uL Hgb (13.0-17.5) gm/dL Hct (39.0-53.0) % Neutrophils # (1.3-7.7) k/uL ABG pH (7.35-7.45) ABG pCO2 (35-45) mmHg ABG pO2 (83-108) mmHg ABG HCO3 (21-25) mmol/L ABG Total CO2 (19-24) mmol/L ABG O2 Saturation (94-97) % Chloride (98-107) mmol/L BUN (9-20) mg/dL Creatinine (0.66-1.25) mg/dL Glucose (74-99) mg/dL POC Glucose (mg/dL) 28 L 31 L 72 L (75-99) mg/dL Calcium (8.4-10.2) mg/dL Total Protein (6.3-8.2) g/dL Albumin (3.5-5.0) g/dL Urine Protein (Negative) Urine Glucose (UA) (Negative) Amorphous Sediment (None) /hpf 01/19/19 01/19/19 01/19/19 Range/Units 04:35 04:35 04:50 WBC 16.1 H (3.8-10.6) k/uL RBC 3.98 L (4.30-5.90) m/uL Hgb 11.6 L (13.0-17.5) gm/dL Hct 36.7 L (39.0-53.0) % Neutrophils # 13.8 H (1.3-7.7) k/uL ABG pH (7.35-7.45) ABG pCO2 (35-45) mmHg ABG pO2 (83-108) mmHg ABG HCO3 (21-25) mmol/L ABG Total CO2 (19-24) mmol/L ABG O2 Saturation 97.1 H (94-97) % Chloride 112 H (98-107) mmol/L BUN 58 H (9-20) mg/dL Creatinine 3.99 H (0.66-1.25) mg/dL Glucose 47 L* (74-99) mg/dL POC Glucose (mg/dL) (75-99) mg/dL Calcium 6.8 L (8.4-10.2) mg/dL Total Protein 4.9 L (6.3-8.2) g/dL Albumin 2.2 L (3.5-5.0) g/dL Urine Protein (Negative) Urine Glucose (UA) (Negative) Amorphous Sediment (None) /hpf 01/19/19 01/19/19 Range/Units 08:10 08:27 WBC (3.8-10.6) k/uL RBC (4.30-5.90) m/uL Hgb (13.0-17.5) gm/dL Hct (39.0-53.0) % Neutrophils # (1.3-7.7) k/uL ABG pH (7.35-7.45) ABG pCO2 (35-45) mmHg ABG pO2 (83-108) mmHg ABG HCO3 (21-25) mmol/L ABG Total CO2 (19-24) mmol/L ABG O2 Saturation (94-97) % Chloride (98-107) mmol/L BUN (9-20) mg/dL Creatinine (0.66-1.25) mg/dL Glucose (74-99) mg/dL POC Glucose (mg/dL) 69 L 102 H (75-99) mg/dL Calcium (8.4-10.2) mg/dL Total Protein (6.3-8.2) g/dL Albumin (3.5-5.0) g/dL Urine Protein (Negative) Urine Glucose (UA) (Negative) Amorphous Sediment (None) /hpf Microbiology - Last 24 Hours (Table) 01/18/19 15:47 Gram Stain - Preliminary Sputum Sputum Culture - Preliminary 01/15/19 20:20 Blood Culture - Preliminary Blood No Growth after 72 hours Assessment and Plan Assessment: 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 There is no continued overt sign of wet gangrene. At this time given his overall tenuous status would likely have greater benefit from below-knee amputation rather than attempts at possible revascularization and local wound care. Continue supportive care. We'll continue to reevaluate for possible limb salvage
--- NOTE | 2019-01-19 10:45 | P.PN ---
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, poor compliance, dyslipidemia, dehydration 01/19/2019, patient seen and evaluated examined in the ICU intubated on full ventilator support, patient had gradual loss of consciousness has been more lethargic arterial blood gases were checked shows hypercapnic and hypoxic respiratory failure was intubated in the ICU, patient has been placed on propofol he was volume depleted depleted aggressive fluid resuscitation were performed, is still require levo fed intermittently, patient was also noted to be hypoglycemic 7030 insulin and other oral hypoglycemic agents were discontinued, ultrasound of the abdomen has been performed which is reviewed no obvious hydronephrosis seen, patient has decreased urine output along with rising BUN/creatinine appeared to be acute tubular necrosis, patient also requiring intermittent bolus of D10 for hypoglycemia, wounds has been evaluated by vascular surgery noted recommendation, patient has very poor venous access, will put a central line in, critical care time 45 minutes during procedure, due to altered mental status CT of the head was performed which was negative 01/18/2019, patient seen eval examined while covering for Dr. Granger, waking up this morning slightly slow to respond but not confused, breathing comfortably denies any chest pain labs reviewed today patient has been evaluated by Dr. Bassett, white cell count is coming down to 19,000, lactic acid level is normalized, patient has been on broad-spectrum antibiotics with vascular surgery on board Objective - Vital Signs Vital signs: Vital Signs Temp 98.2 F 01/19/19 04:00 Pulse 74 01/19/19 10:00 Resp 18 01/19/19 10:00 BP 80/48 01/19/19 07:00 Pulse Ox 94 L 01/19/19 10:00 Intake & Output 01/18/19 01/19/19 01/19/19 18:59 06:59 18:59 Intake Total 7680.485 2423.371 776.474 Output Total 480 1735 65 Balance 985.882 3341.371 711.474 Weight 117.5 kg Intake: IV 700 2700 700 Piperacillin-Tazobactam 3 100 .375 gm In Sodium Chloride 0.9% 100 ml @ 25 mls/hr IVPB Q12H [facility] Rx# :[id number] Sodium Chloride 0.9% 1, 200 1100 200 000 ml @ 100 mls/hr IV . Q10H [facility] Rx#:[id number] Sodium Chloride 0.9% 1, 500 1500 500 000 ml @ 500 mls/hr IV . Q2H [facility] Rx#:[id number] Intake, IV Titration 5.779 262.371 76.474 Amount Norepinephrine 4 mg In 15.146 Sodium Chloride 0.9% 250 ml @ 0.05 MCG/KG/MIN 22. 384 mls/hr IV .[id number] [place] Rx#:[id number] Propofol 1,000 mg In 5.779 262.371 61.328 Empty Bag 1 bag @ Titrate IV .Q0M [facility] Rx#: [id number] Oral 320 Output: Gastric Drainage 1400 Urine 480 335 65 Other: Voiding Method Indwelling Catheter Indwelling Catheter Indwelling Catheter # Voids 1 ABP, PAP, CO, CI - Last Documented Arterial Blood Pressure 140/54 - Exam Intubated on full vent support on propofol getting IV fluids normal saline due to hypotension one more fluid bolus being given In general patient is alert and oriented 3 while propofol was stopped s HEENT head normocephalic and atraumatic Neck is supple no JVD no goiter no lymphadenopathy Chest exam reveals a few scattered rhonchi no wheezing Cardiac exam reveals regular heart sounds S1 and S2 no gallops no murmurs Abdomen is soft nontender no organomegaly with normal bowel sounds Extremity exam reveals minimal edema there is blackish discoloration of the right fifth toe with surrounding erythema involving the distal part of the right foot Neuro no gross focal neurological deficit, patient has anisocoria - Labs CBC & Chem 7: 01/19/19 04:35 01/19/19 04:35 Labs: Abnormal Lab Results - Last 24 Hours (Table) 01/18/19 01/18/19 01/18/19 Range/Units 12:55 13:16 14:56 WBC (3.8-10.6) k/uL RBC (4.30-5.90) m/uL Hgb (13.0-17.5) gm/dL Hct (39.0-53.0) % Neutrophils # (1.3-7.7) k/uL ABG pH (7.35-7.45) ABG pCO2 (35-45) mmHg ABG pO2 (83-108) mmHg ABG HCO3 (21-25) mmol/L ABG Total CO2 (19-24) mmol/L ABG O2 Saturation (94-97) % Chloride (98-107) mmol/L BUN (9-20) mg/dL Creatinine (0.66-1.25) mg/dL Glucose (74-99) mg/dL POC Glucose (mg/dL) 65 L 65 L 119 H (75-99) mg/dL Calcium (8.4-10.2) mg/dL Total Protein (6.3-8.2) g/dL Albumin (3.5-5.0) g/dL Urine Protein (Negative) Urine Glucose (UA) (Negative) Amorphous Sediment (None) /hpf 01/18/19 01/18/19 01/18/19 Range/Units 15:15 16:55 17:04 WBC (3.8-10.6) k/uL RBC (4.30-5.90) m/uL Hgb (13.0-17.5) gm/dL Hct (39.0-53.0) % Neutrophils # (1.3-7.7) k/uL ABG pH 7.12 L* 7.25 L (7.35-7.45) ABG pCO2 81 H* 55 H (35-45) mmHg ABG pO2 253 H (83-108) mmHg ABG HCO3 26 H (21-25) mmol/L ABG Total CO2 29 H 26 H (19-24) mmol/L ABG O2 Saturation 99.6 H (94-97) % Chloride (98-107) mmol/L BUN (9-20) mg/dL Creatinine (0.66-1.25) mg/dL Glucose (74-99) mg/dL POC Glucose (mg/dL) (75-99) mg/dL Calcium (8.4-10.2) mg/dL Total Protein (6.3-8.2) g/dL Albumin (3.5-5.0) g/dL Urine Protein 1+ H (Negative) Urine Glucose (UA) 1+ H (Negative) Amorphous Sediment Few H (None) /hpf 01/19/19 01/19/19 01/19/19 Range/Units 00:00 00:02 00:27 WBC (3.8-10.6) k/uL RBC (4.30-5.90) m/uL Hgb (13.0-17.5) gm/dL Hct (39.0-53.0) % Neutrophils # (1.3-7.7) k/uL ABG pH (7.35-7.45) ABG pCO2 (35-45) mmHg ABG pO2 (83-108) mmHg ABG HCO3 (21-25) mmol/L ABG Total CO2 (19-24) mmol/L ABG O2 Saturation (94-97) % Chloride (98-107) mmol/L BUN (9-20) mg/dL Creatinine (0.66-1.25) mg/dL Glucose (74-99) mg/dL POC Glucose (mg/dL) 28 L 31 L 72 L (75-99) mg/dL Calcium (8.4-10.2) mg/dL Total Protein (6.3-8.2) g/dL Albumin (3.5-5.0) g/dL Urine Protein (Negative) Urine Glucose (UA) (Negative) Amorphous Sediment (None) /hpf 01/19/19 01/19/19 01/19/19 Range/Units 04:35 04:35 04:50 WBC 16.1 H (3.8-10.6) k/uL RBC 3.98 L (4.30-5.90) m/uL Hgb 11.6 L (13.0-17.5) gm/dL Hct 36.7 L (39.0-53.0) % Neutrophils # 13.8 H (1.3-7.7) k/uL ABG pH (7.35-7.45) ABG pCO2 (35-45) mmHg ABG pO2 (83-108) mmHg ABG HCO3 (21-25) mmol/L ABG Total CO2 (19-24) mmol/L ABG O2 Saturation 97.1 H (94-97) % Chloride 112 H (98-107) mmol/L BUN 58 H (9-20) mg/dL Creatinine 3.99 H (0.66-1.25) mg/dL Glucose 47 L* (74-99) mg/dL POC Glucose (mg/dL) (75-99) mg/dL Calcium 6.8 L (8.4-10.2) mg/dL Total Protein 4.9 L (6.3-8.2) g/dL Albumin 2.2 L (3.5-5.0) g/dL Urine Protein (Negative) Urine Glucose (UA) (Negative) Amorphous Sediment (None) /hpf 01/19/19 01/19/19 Range/Units 08:10 08:27 WBC (3.8-10.6) k/uL RBC (4.30-5.90) m/uL Hgb (13.0-17.5) gm/dL Hct (39.0-53.0) % Neutrophils # (1.3-7.7) k/uL ABG pH (7.35-7.45) ABG pCO2 (35-45) mmHg ABG pO2 (83-108) mmHg ABG HCO3 (21-25) mmol/L ABG Total CO2 (19-24) mmol/L ABG O2 Saturation (94-97) % Chloride (98-107) mmol/L BUN (9-20) mg/dL Creatinine (0.66-1.25) mg/dL Glucose (74-99) mg/dL POC Glucose (mg/dL) 69 L 102 H (75-99) mg/dL Calcium (8.4-10.2) mg/dL Total Protein (6.3-8.2) g/dL Albumin (3.5-5.0) g/dL Urine Protein (Negative) Urine Glucose (UA) (Negative) Amorphous Sediment (None) /hpf Microbiology - Last 24 Hours (Table) 01/18/19 15:47 Gram Stain - Preliminary Sputum Sputum Culture - Preliminary 01/15/19 20:20 Blood Culture - Preliminary Blood No Growth after 72 hours Assessment and Plan Assessment: Altered mental status Hypoxic and hypercapnic respiratory failure Severe hypoglycemia 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 Surrounding cellulitis of right foot Sepsis and septic shock Insulin-dependent diabetes mellitus poorly controlled Hypertension hypertensive cardiovascular disease Dyslipidemia Plan: Cobos cultures Continue vent support ventilated been adjusted Patient observation monitored off of propofol does follow simple commands Will observe and monitor anisocoria Renal consultation Central line A-line has been inserted by anesthesia Continue gentle hydration Broad-spectrum antibiotics Critical care time 45 minutes excluding procedure Time with Patient: Greater than 30
[2019-01-19] MEDS ORDERED: POTASSIUM CHLORIDE ER 20 MEQ TAB.ER PO SCH (11:00)
--- NOTE | 2019-01-19 11:38 | P.PCN ---
Date of Procedure: 01/19/19 Preoperative Diagnosis: Altered mental status, severe sepsis, septic shock, diabetic foot right, Postoperative Diagnosis: As above Anesthesia: local Surgeon: Rah Dominguez Estimated Blood Loss (ml): 10 Pathology: none sent Condition: critical Disposition: ICU Indications for Procedure: As above Operative Findings: As below Description of Procedure: Using a modified Seldinger technique right internal jugular double-lumen catheter placed wire anterior approach patient tolerated procedure well no complication noted all ports are flushed the line is secured
--- NOTE | 2019-01-19 11:38 | P.NPCON ---
History of Present Illness - Reason for Consult acute renal failure - History of Present Illness Reason for admission: Acute kidney injury History of present illness: Patient is a 68-year-old male seen in consultation for acute kidney injury. Patient presented to the hospital on 01/15/2019 with pain in his toes, particularly fourth and fifth toe, on the right feet. Patient was evaluated by vascular surgery and was noted to have wet gangrene. 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 Last night the patient was noted to be more lethargic. He was noted to be and mixed acute hypercapnic and hypoxic respiratory failure. Patient was intubated and trans ferred to the intensive care unit. Patient was on Levophed overnight but is now discontinued. He is currently receiving a 500 mL bolus of normal saline and is also maintained on normal saline at 100 mL an hour. Patient's urine output has been about 15-20 mL an hour. Patient's blood pressure did drop down into the systolic 60s last night. Additionally he was on LELAND inhibitor which has not been discontinued. In terms of antibiotics he's been on IV vancomycin and Zosyn. Patient's vancomycin level as of 01/18/2019 was 39.6. Vancomycin has been discontinued. Vital signs are stable. General: The patient appeared well nourished and normally developed. HEENT: Head exam is unremarkable. Neck is without jugular venous distension. Intubated. LUNGS: Lungs are clear to auscultation and percussion. Breath sounds decreased. HEART: Rate and Rhythm are regular. First and second heart sounds normal. No murmurs, rubs or gallops. ABDOMEN: Abdominal exam reveals normal bowel sounds. Non-tender and non- distended. EXTREMITITES: No clubbing, cyanosis, or edema. No obvious drainage noted. Past Medical History Past Medical History: Diabetes Mellitus, Hyperlipidemia, Hypertension, Myocardial Infarction (LA), Osteoarthritis (OA) Additional Past Medical History / Comment(s): SILENT LA-UNK DATE, NEUROPATHY/FEET,RLS, BROKEN LT ELBOW AND RT ANKLE HAD SX ON BOTH HAS SCREWS IN PLACE, PREVIOUS DIABETIC ULCERS. Wounds Right foot. Last Myocardial Infarction Date:: UNK History of Any Multi-Drug Resistant Organisms: MRSA Date of last positivie culture/infection: 02-04-2015 MDRO Source:: MRSA- right foot wound Past Surgical History: Heart Catheterization Additional Past Surgical History / Comment(s): LT MIDDLE TOE AMPUTION, ORIF LT ELBOW, RT ANKLE HAS SCREWS IN PLACE, PICC LINE LT ARM SINCE REMOVED. Right foot incision and drainage Past Anesthesia/Blood Transfusion Reactions: No Reported Reaction Past Psychological History: No Psychological Hx Reported Additional Psychological History / Comment(s): Single. Retired. No experience. no animals in the home. Not a current tobacco smoker Smoking Status: Never smoker Past Alcohol Use History: None Reported Past Drug Use History: None Reported - Past Family History Mother Family Medical History: Diabetes Mellitus Additional Family Medical History / Comment(s): CARDIAC PROBLEMS AT AGE 63 Father History Unknown: Yes Additional Family Medical History / Comment(s): father of mrsa in hip post sx 2017 age 91. Medications and Allergies Home Medications Medication Instructions Recorded Confirmed Type HYDROcodone/APAP 10-325MG [[place] 1 tab PO TID PRN 02/03/15 01/15/19 History 10-325] glipiZIDE [Glucotrol] 10 mg PO DAILY 02/03/15 01/15/19 History Insuln Asp Prt/Insulin Aspart 35 unit SQ AC-BRKFST 03/22/16 01/15/19 History [NovoLOG MIX 70-30 VIAL] Brimonidine Tartrate [[place]ph[place] P 1 drops LEFT EYE TID 08/08/18 01/15/19 History 0.2% Ophth Soln] Dorzolamide 2% [Trusopt 2%] 1 drops LEFT EYE TID 08/08/18 01/15/19 History FLUoxetine HCL [PROzac] 20 mg PO DAILY 08/08/18 01/15/19 History Insuln Asp Prt/Insulin Aspart 20 unit SQ HS 08/08/18 01/15/19 History [NovoLOG MIX 70-30 VIAL] Latanoprost/Pf [Latanoprost 0.005% 1 drop LEFT EYE HS 08/08/18 01/15/19 History Eye Drop] Lisinopril 40 mg PO DAILY 08/08/18 01/15/19 History Timolol 0.5% Ophth Soln [Timoptic 1 drop LEFT EYE BID 08/08/18 01/15/19 History 0.5% Ophth Soln] metFORMIN HCL [Glucophage] 500 mg PO BID 08/08/18 01/15/19 History Gabapentin [Neurontin] 100 mg PO DAILY 01/15/19 01/15/19 History Insulin Aspart [NovoLOG] 8 units SQ AC-SUPPER 01/15/19 01/15/19 History rOPINIRole HCL [Requip] 2 mg PO HS 01/15/19 01/15/19 History sitaGLIPtin [Januvia] 100 mg PO DAILY 01/15/19 01/15/19 History Allergies Allergy/AdvReac Type Severity Reaction Status Date / Time No Known Allergies Allergy Verified 01/15/19 21:52 Physical Exam Vitals: Vital Signs Temp Pulse Pulse Resp BP BP Pulse Ox 01/19/19 10:00 74 18 94 L 01/19/19 09:45 77 18 94 L 01/19/19 09:30 74 18 94 L 01/19/19 09:15 71 18 95 01/19/19 09:00 59 L 18 96 01/19/19 08:45 57 L 18 96 01/19/19 08:30 59 L 18 96 01/19/19 08:15 60 18 96 01/19/19 08:00 60 18 96 01/19/19 07:45 61 18 96 01/19/19 07:30 67 18 97 01/19/19 07:15 66 18 98 01/19/19 07:00 61 18 80/48 98 01/19/19 06:45 57 L 18 97 01/19/19 06:30 57 L 18 97 01/19/19 06:15 60 18 80/48 97 01/19/19 06:00 60 18 125/73 95 01/19/19 05:45 70 18 95 01/19/19 05:30 72 18 96 01/19/19 05:15 75 18 125/73 95 01/19/19 05:00 76 18 117/61 95 01/19/19 04:45 77 18 95 01/19/19 04:30 75 18 117/61 96 01/19/19 04:15 73 18 117/61 97 01/19/19 04:00 98.2 F 66 18 123/69 98 01/19/19 03:45 61 18 123/69 99 01/19/19 03:30 58 L 18 123/69 99 01/19/19 03:15 58 L 18 123/69 99 01/19/19 03:00 56 L 18 104/59 99 01/19/19 02:45 58 L 18 104/59 99 01/19/19 02:30 58 L 18 104/59 99 01/19/19 02:15 60 18 104/59 99 01/19/19 02:00 58 L 18 115/65 99 01/19/19 01:45 61 18 115/65 97 01/19/19 01:30 68 18 115/65 97 01/19/19 01:15 73 18 115/65 96 01/19/19 01:00 75 18 92/58 96 01/19/19 00:45 75 18 92/58 95 01/19/19 00:30 75 18 92/58 95 01/19/19 00:15 63 18 92/58 99 01/19/19 00:00 98.4 F 59 L 18 78/47 98 01/18/19 23:58 58 L 18 78/47 98 01/18/19 23:45 61 18 98/59 98 01/18/19 23:30 73 4 L 114/63 98 01/18/19 23:15 74 18 108/60 96 01/18/19 23:00 73 10 L 118/63 98 01/18/19 22:45 76 18 115/61 97 01/18/19 22:30 72 18 116/67 99 01/18/19 22:15 71 18 108/63 98 01/18/19 22:00 70 18 96/57 98 01/18/19 21:45 68 18 91/55 98 01/18/19 21:30 68 18 99/59 98 01/18/19 21:15 69 18 94/56 98 01/18/19 21:00 70 18 98/59 99 01/18/19 20:45 69 18 83/53 98 01/18/19 20:30 71 18 80/52 97 01/18/19 20:15 64 18 65/45 97 01/18/19 20:00 100.4 F H 70 15 106/54 97 01/18/19 19:45 76 10 L 110/59 96 01/18/19 19:30 78 12 119/58 96 01/18/19 18:45 76 18 106/57 97 01/18/19 18:30 78 18 97/61 96 01/18/19 18:15 72 18 87/52 97 01/18/19 18:00 66 18 64/41 96 01/18/19 17:45 61 18 72/39 96 01/18/19 17:30 63 18 75/37 100 01/18/19 17:15 68 16 85/47 100 01/18/19 17:00 73 16 109/58 100 01/18/19 16:45 75 16 109/58 97 01/18/19 16:30 71 16 74/41 100 01/18/19 16:15 71 16 87/42 97 01/18/19 16:00 75 16 113/58 98 01/18/19 15:55 75 17 119/65 98 01/18/19 15:50 74 16 161/62 100 01/18/19 15:45 71 16 73/40 95 01/18/19 15:40 72 16 83/47 98 01/18/19 15:35 80 20 138/60 94 L 01/18/19 15:30 77 25 H 131/62 93 L 01/18/19 14:55 143/65 01/18/19 14:20 98.7 F 72 16 90/48 97 Intake and Output 01/18/19 01/19/19 01/19/19 22:59 06:59 14:59 Intake Total 2466.121 1202.029 776.474 Output Total 1185 1030 65 Balance 1281.121 172.029 711.474 Intake: IV 2400 1000 700 Piperacillin-Tazobactam 3 100 .375 gm In Sodium Chloride 0.9% 100 ml @ 25 mls/hr IVPB Q12H [place] Rx# :[id number] Sodium Chloride 0.9% 1, 400 900 200 000 ml @ 100 mls/hr IV . Q10H [place] Rx#:[id number] Sodium Chloride 0.9% 1, 2000 500 000 ml @ 500 mls/hr IV . Q2H [facility] Rx#:[id number] Intake, IV Titration 66.121 202.029 76.474 Amount Norepinephrine 4 mg In 15.146 Sodium Chloride 0.9% 250 ml @ 0.05 MCG/KG/MIN 22. 384 mls/hr IV .[id number] [place] Rx#:[id number] Propofol 1,000 mg In 66.121 202.029 61.328 Empty Bag 1 bag @ Titrate IV .Q0M [place] Rx#: [id number] Output: Gastric Drainage 600 800 Urine 585 230 65 Other: Voiding Method Indwelling Catheter Indwelling Catheter Indwelling Catheter Weight 117.5 kg ABP, PAP, CO, CI - Last 8 Hours Arterial Blood Pressure 140/54 Arterial Blood Pressure 149/60 Arterial Blood Pressure 150/64 Arterial Blood Pressure 142/63 Arterial Blood Pressure 115/53 Arterial Blood Pressure 99/46 Arterial Blood Pressure 108/49 Arterial Blood Pressure 103/49 Arterial Blood Pressure 111/50 Arterial Blood Pressure 108/50 Arterial Blood Pressure 134/58 Arterial Blood Pressure 154/66 Arterial Blood Pressure 127/57 Arterial Blood Pressure 115/53 Arterial Blood Pressure 107/50 Arterial Blood Pressure 118/53 Arterial Blood Pressure 89/44 Arterial Blood Pressure 112/47 Arterial Blood Pressure 119/50 Arterial Blood Pressure 139/58 Arterial Blood Pressure 141/57 Arterial Blood Pressure 154/66 Arterial Blood Pressure 138/64 Arterial Blood Pressure 132/61 Arterial Blood Pressure 129/59 Arterial Blood Pressure 112/53 Arterial Blood Pressure 140/64 Results - Lab Results Most recent lab results ABG pH 7.36 (7.35-7.45) 01/19/19 04:50 ABG pCO2 41 mmHg (35-45) 01/19/19 04:50 ABG pO2 92 mmHg (83-108) 01/19/19 04:50 ABG HCO3 23 mmol/L (21-25) 01/19/19 04:50 ABG O2 Saturation 97.1 % (94-97) H 01/19/19 04:50 Calcium 6.8 mg/dL (8.4-10.2) L 01/19/19 04:35 Magnesium 2.1 mg/dL (1.6-2.3) 01/19/19 04:35 01/19/19 04:35 01/19/19 04:35 Assessment and Plan Plan: Assessment: 1. Acute kidney injury secondary to ATN secondary to hypotension as well as vancomycin toxicity. Patient's creatinine was 1.1 on admission and is up to 3.99 today. No evidence of hydronephrosis noted on kidney ultrasound. 2. Right foot fourth and fifth toe with gangrene status post amputation this admission. 3. Acute mixed hypercapnic and hypoxic respiratory failure. Currently intubated. 4. Insulin-dependent diabetes mellitus. Uncontrolled. Plan: Maintain D5 0.9 saline at 100 mL an hour. Avoid nephrotoxins. Wean FiO2. Vancomycin and lisinopril have both been discontinued. Continue to monitor renal function and urine output. Continue to assess on daily basis for need for renal replacement therapy. Thank you for the consultation. I will continue to follow the patient with you during his hospital stay.
--- NOTE | 2019-01-19 11:54 | XR ---
EXAMINATION TYPE: XR chest 1V portable DATE OF EXAM: 01/19/2019 COMPARISON: 01/19/2019 HISTORY: SOB, Follow Up FINDINGS: Indwelling tubes and catheters are unchanged. Right-sided central venous line internal jugular approa ch distal tip overlying the SVC. No evidence for pneumothorax. Increasing basilar density may reflect atelectasis and/or effusions. Pulmonary venous congestion note d as well. Stable appearance of the cardio-mediastinal structures at this time. Pleural effusion unchanged. IMPRESSION: 1. Increasing basilar density may reflect atelectasis and/or effusions. Pulmonary venous congestion noted as well.
[2019-01-19 12:08] LABS: Glucose,Whole Blood 110 mg/dL (75-99)
[2019-01-19] MEDS ORDERED: POTASSIUM BICARBONATE/CIT AC 20 MEQ TABLET.EFF NG-TUBE SCH (13:00)
--- NOTE | 2019-01-19 18:20 | PN ---
PROGRESS NOTE This is a 68-year-old gentleman that we were initially consulted for preop cardiac evaluation. The patient underwent amputation of the toes of the right foot. Subsequently, last night the patient became short of breath, gradually became obtunded. Due to this he was intubated and placed on a vent and is currently in the ICU. The patient has hypercapnic respiratory failure. We are seeing him in followup. EXAM: He is comfortable at rest. Heart rate is 74 beats per minute. Blood pressure is 140/54, respiratory rate is 18. Chest exam reveals diminished air entry at the bases. Heart exam reveals first and second heart sounds. No gallop. Exam of the extremities reveals that the pulses are diminished over the left foot. The right pedal pulses are not palpable. He is status post amputation. LABS: Show that the creatinine is 3.9. He started off with a creatinine of 1.13 and he developed acute renal failure on this admission. ASSESSMENT: 1. Respiratory failure. 2. Acute renal failure. 3. Peripheral vascular disease. 4. History of hypertension. PLAN: Will hold the antihypertensives at this time. I will repeat a limited echo on him tomorrow to evaluate his LV function. MMODL / IJN: [id number] /
[2019-01-19 18:34] LABS: Glucose,Whole Blood 151 mg/dL (75-99)
[2019-01-19] MEDS: HEPARIN SODIUM,PORCINE 5,000 UNIT/ML 1 ML VIAL SQ SCH (18:37)
[2019-01-19] MEDS: LATANOPROST 0.005% OPHTH DROPS 2.5 ML BTL LEFT EYE SCH (20:51)
[2019-01-20] MEDS: INSULIN ASPART (NovoLOG) 100 UNIT/ML VIAL SQ SCH ×4 (00:09→17:41)
[2019-01-20 00:11] LABS: Glucose,Whole Blood 126 mg/dL (75-99)
[2019-01-20] MEDS: HEPARIN SODIUM,PORCINE 5,000 UNIT/ML 1 ML VIAL SQ SCH ×3 (00:11→15:20)
[2019-01-20] MEDS: PROPOFOL 1,000 MG in EMPTY BAG 1 BAG IV SCH ×6 (01:44→23:06)
[2019-01-20] MEDS: SODIUM CHLORIDE 0.9% 1,000 ML IV SCH ×2 (03:36→17:12)
[2019-01-20] MEDS: NOREPINEPHRINE 4 MG in SODIUM CHLORIDE 0.9% 250 ML IV SCH ×2 (03:36→17:19)
[2019-01-20 04:46] LABS: ABG Base Excess -3.9 mmol/L; ABG HCO3 21 mmol/L (21-25); ABG Oxygen Saturation 97.4 % (94-97); ABG PCO2 37 mmHg (35-45); ABG PH 7.37 (7.35-7.45); ABG PO2 99 mmHg (83-108); ABG TCO2 23 mmol/L (19-24); Allen Test Performed? Yes
[2019-01-20 05:31] LABS: Basophils % (A) 0 %; Eosinophils # (A) 0.5 k/uL (0-0.7); Eosinophils % (A) 3 %; HCT 34.3 % (39.0-53.0); HGB 11.2 gm/dL (13.0-17.5); Hypochromasia Slight; Lymphocytes # (A) 0.7 k/uL (1.0-4.8); Lymphocytes % (A) 4 %; MCH 30.2 pg (25.0-35.0); MCHC 32.7 g/dL (31.0-37.0); MCV 92.6 fL (80.0-100.0); Mean Platelet Volume 8.6; Monocytes # (A) 0.5 k/uL (0-1.0); Monocytes % (A) 3 %; Neutrophils # (A) 14.2 k/uL (1.3-7.7); Neutrophils % (A) 89 %; Platelet Count 200 k/uL (150-450); RBC 3.71 m/uL (4.30-5.90); RDW 12.2 % (11.5-15.5)
[2019-01-20 05:43] LABS: Glucose,Whole Blood 154 mg/dL (75-99)
[2019-01-20] MEDS: PIPERACILLIN-TAZOBACTAM 3.375 GM in SODIUM CHLORIDE 0.9% 100 ML IVPB SCH ×2 (05:46→17:42)
[2019-01-20 05:53] LABS: Albumin 2.1 g/dL (3.5-5.0); Calcium 6.8 mg/dL (8.4-10.2); Potassium 3.8 mmol/L (3.5-5.1); Total Bilirubin 0.4 mg/dL (0.2-1.3); Total Protein 4.8 g/dL (6.3-8.2)
--- NOTE | 2019-01-20 08:16 | XR ---
EXAMINATION TYPE: XR chest 1V portable DATE OF EXAM: 01/20/2019 COMPARISON: 01/19/2019 HISTORY: Shortness of breath FINDINGS: There are bilateral pleural effusions with cardiomegaly and bibasilar infiltrate. There is a diffuse interstitial pattern. ET and NG tubes stable. Right-sided central line stable. Tip near the region o f the right atrium but poorly developed identified. IMPRESSION: 1. Bilateral diffuse pleural-parenchymal disease correlate for CHF. Underlying pneumonia not excluded . Findings stable.
[2019-01-20 08:49] LABS: ABG PH 7.12 (7.35-7.45)
--- NOTE | 2019-01-20 09:37 | PN ---
PROGRESS NOTE Mr. Saenz is a 68-year-old male who underwent amputation of the toes of the right foot, became progressively dyspneic and obtunded, requiring mechanical ventilation. He has history of hypercapnic respiratory failure. He remains intubated and sedated there. He continues to be in sinus mechanism. He had evidence of worsening renal function. He continues to be at this time on gabapentin, insulin, vancomycin. PHYSICAL EXAMINATION: Blood pressure 136/50 with a heart rate in 70s. LUNGS: Clear anteriorly. HEART: Regular rate and rhythm. S1, S2. No S3. No rub. ABDOMEN: Soft. Positive bowel sounds. EXTREMITIES: No edema. LAB DATA: Revealed BUN and creatinine 56 and 4.17, which has worsened compared to the presenting creatinine of 1.13. His hemoglobin is 11.2. IMPRESSION: 1. Her respiratory failure with preserved systolic function. 2. Acute renal function. 3. Will peripheral vessel disease. 4. History of hypertension. Patient on presentation had an echocardiogram that revealed an ejection fraction of 50% to 55%. He has been evaluated by the Nephrology Service in regard to his renal function. We will continue supportive care. From the cardiac standpoint, there is no evidence of acute coronary syndrome at this time. MMODL / IJN: [id number] /
[2019-01-20] MEDS: GABAPENTIN 100 MG CAP PO SCH ×3 (10:02→20:44)
[2019-01-20] MEDS: PANTOPRAZOLE 40 MG/10 ML VIAL IV SCH (10:02)
[2019-01-20] MEDS: FLUoxetine HCL 20 MG CAP PO SCH (10:06)
[2019-01-20] MEDS: CHLORHEXIDINE GLUCONATE 15 ML CUP MUCOUS MEM SCH ×2 (10:06→20:44)
[2019-01-20] MEDS: TIMOLOL 0.5% OPHTH DROPS 5 ML BTL LEFT EYE SCH ×2 (10:07→20:44)
[2019-01-20] MEDS: BRIMONIDINE TARTRATE 0.2% DROPS 5 ML BTL LEFT EYE SCH ×3 (10:08→20:51)
[2019-01-20] MEDS: DORZOLAMIDE HCL 2% DROPS 10 ML BTL LEFT EYE SCH ×3 (10:08→20:51)
--- NOTE | 2019-01-20 10:24 | P.PN ---
Subjective Progress Note Date: 01/20/19 Refugio Saenz, is a 68-year-old male who presented to [facility] emergency room with pain in the right foot, he was evaluated in emergency room and had blackish discoloration of the right fifth toe with surrounding erythema and tenderness, patient was started on IV antibiotics Zosyn, vancomycin, and clindamycin, he was admitted to medical floor vascular surgery consultation was requested for possible amputation due to evidence of gangrene. Infectious disease consultation was requested. Patient has a known history of insulin-dependent diabetes mellitus, his glucose level was well controlled up until September of this year his A1c in June was 7.1 and in September was 7.3 however apparently patient stopped taking his insulin and his medications and his A1c was up to 9.8 in November, he has a known history of right foot ulcer he was admitted to the hospital with right foot cellulitis and ulcer in 2014 and he was followed at the wound care clinic in 2015 however he was doing well up until recently. Patient also has a known history of hypertension, hyperlipidemia, he denies any history of coronary artery disease or congestive heart failure, he had an echocardiogram done in 2014 at that time he had normal left ventricular function was normal ejection fraction, no significant valvular disease and no pulmonary hypertension. 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 On 01/17/2019 patient's alert and oriented 3. Patient had fourth and fifth toe amputation with Dr. Bustillos this morning. Patient having some low blood pressure will give 500 mL bolus. Patient denies chest pain or shortness of breath. Patient denies nausea vomiting or diarrhea. Patient is having some increased pain to foot area pain medications ordered 01/18/2019, patient seen eval examined while covering for Dr. Granger, waking up this morning slightly slow to respond but not confused, breathing comfortably denies any chest pain labs reviewed today patient has been evaluated by Dr. Bassett, white cell count is coming down to 19,000, lactic acid level is normalized, patient has been on broad-spectrum antibiotics with vascular surgery on board 01/19/2019, patient seen and evaluated examined in the ICU intubated on full ventilator support, patient had gradual loss of consciousness has been more lethargic arterial blood gases were checked shows hypercapnic and hypoxic respiratory failure was intubated in the ICU, patient has been placed on propo fol he was volume depleted depleted aggressive fluid resuscitation were performed, is still require levo fed intermittently, patient was also noted to be hypoglycemic 7030 insulin and other oral hypoglycemic agents were discontinued, ultrasound of the abdomen has been performed which is reviewed no obvious hydronephrosis seen, patient has decreased urine output along with rising BUN/creatinine appeared to be acute tubular necrosis, patient also requiring intermittent bolus of D10 for hypoglycemia, wounds has been evaluated by vascular surgery noted recommendation, patient has very poor venous access, will put a central line in, critical care time 45 minutes during procedure, due to altered mental status CT of the head was performed which was negative On 01/20/2019 patient remains in the intensive care unit on mechanical ventilation. Levophed has been on hold blood pressures has sustained. Creatinine has increased to 4.17 and bun 56. Nephrology services are following. Per nursing staff patient does follow commands during sedation holiday ABGs have improved. Discussed case with vascular surgeon nurse practitioner possible BKA discussion. White blood cell decreasing to 16.0. Critical care services are following. Patient remains on Zosyn for IV antibiotics. Infectious disease following Objective - Vital Signs Vital signs: Vital Signs Temp 98.8 F 01/20/19 04:00 Pulse 70 01/20/19 07:00 Resp 18 01/20/19 07:00 BP 130/64 01/19/19 10:30 Pulse Ox 97 01/20/19 07:00 Intake & Output 01/19/19 01/20/19 01/20/19 18:59 06:59 18:59 Intake Total 3260.025 4706 Output Total 290 885 Balance 1156.159 5736 Weight 117.5 kg Intake: IV 1500 1400 Piperacillin-Tazobactam 3 100 .375 gm In Sodium Chloride 0.9% 100 ml @ 25 mls/hr IVPB Q12H [place] Rx# :[id number] Sodium Chloride 0.9% 1, 1000 1300 000 ml @ 100 mls/hr IV . Q10H [place] Rx#:[id number] Sodium Chloride 0.9% 1, 500 000 ml @ 500 mls/hr IV . Q2H [facility] Rx#:[id number] Intake, IV Titration 76.474 300 Amount Norepinephrine 4 mg In 15.146 Sodium Chloride 0.9% 250 ml @ 0.05 MCG/KG/MIN 22. 384 mls/hr IV .[id number] [place] Rx#:[id number] Propofol 1,000 mg In 61.328 300 Empty Bag 1 bag @ Titrate IV .Q0M [place] Rx#: [id number] Tube Feeding 70 370 Other 60 Output: Urine 290 885 Other: Voiding Method Indwelling Catheter Indwelling Catheter ABP, PAP, CO, CI - Last Documented Arterial Blood Pressure 136/47 - Exam In general patient is alert and oriented 3 in no apparent distress HEENT head normocephalic and atraumatic Neck is supple no JVD no goiter no lymphadenopathy Chest exam reveals a few scattered rhonchi no wheezing Cardiac exam reveals regular heart sounds S1 and S2 no gallops no murmurs Abdomen is soft nontender no organomegaly with normal bowel sounds Extremity exam reveals minimal edema there is blackish discoloration of the right fifth toe with surrounding erythema involving the distal part of the right foot Neuro no gross focal neurological deficit - Labs CBC & Chem 7: 01/20/19 05:15 01/20/19 05:15 Labs: Abnormal Lab Results - Last 24 Hours (Table) 01/18/19 01/19/19 01/19/19 Range/Units 15:15 12:07 18:32 WBC (3.8-10.6) k/uL RBC (4.30-5.90) m/uL Hgb (13.0-17.5) gm/dL Hct (39.0-53.0) % Neutrophils # (1.3-7.7) k/uL Lymphocytes # (1.0-4.8) k/uL ABG pH 7.12 L* (7.35-7.45) ABG pCO2 81 H* (35-45) mmHg ABG O2 Saturation (94-97) % Chloride (98-107) mmol/L Carbon Dioxide (22-30) mmol/L BUN (9-20) mg/dL Creatinine (0.66-1.25) mg/dL Glucose (74-99) mg/dL POC Glucose (mg/dL) 110 H 151 H (75-99) mg/dL Calcium (8.4-10.2) mg/dL Total Protein (6.3-8.2) g/dL Albumin (3.5-5.0) g/dL 01/20/19 01/20/19 01/20/19 Range/Units 00:09 04:44 05:15 WBC 16.0 H (3.8-10.6) k/uL RBC 3.71 L (4.30-5.90) m/uL Hgb 11.2 L (13.0-17.5) gm/dL Hct 34.3 L (39.0-53.0) % Neutrophils # 14.2 H (1.3-7.7) k/uL Lymphocytes # 0.7 L (1.0-4.8) k/uL ABG pH (7.35-7.45) ABG pCO2 (35-45) mmHg ABG O2 Saturation 97.4 H (94-97) % Chloride (98-107) mmol/L Carbon Dioxide (22-30) mmol/L BUN (9-20) mg/dL Creatinine (0.66-1.25) mg/dL Glucose (74-99) mg/dL POC Glucose (mg/dL) 126 H (75-99) mg/dL Calcium (8.4-10.2) mg/dL Total Protein (6.3-8.2) g/dL Albumin (3.5-5.0) g/dL 01/20/19 01/20/19 Range/Units 05:15 05:41 WBC (3.8-10.6) k/uL RBC (4.30-5.90) m/uL Hgb (13.0-17.5) gm/dL Hct (39.0-53.0) % Neutrophils # (1.3-7.7) k/uL Lymphocytes # (1.0-4.8) k/uL ABG pH (7.35-7.45) ABG pCO2 (35-45) mmHg ABG O2 Saturation (94-97) % Chloride 112 H (98-107) mmol/L Carbon Dioxide 21 L (22-30) mmol/L BUN 56 H (9-20) mg/dL Creatinine 4.17 H (0.66-1.25) mg/dL Glucose 168 H (74-99) mg/dL POC Glucose (mg/dL) 154 H (75-99) mg/dL Calcium 6.8 L (8.4-10.2) mg/dL Total Protein 4.8 L (6.3-8.2) g/dL Albumin 2.1 L (3.5-5.0) g/dL Microbiology - Last 24 Hours (Table) 01/15/19 20:20 Blood Culture - Preliminary Blood No Growth after 96 hours 01/17/19 09:20 Gram Stain - Preliminary Toe - Right Fifth Wound Culture - Preliminary Gram Neg Bacilli Group D Enterococcus Beta Hemolytic Streptococcus F Assessment and Plan Assessment: #1 gangrene involving the right fifth toe with surrounding cellulitis, patient was started on IV antibiotic in the emergency room including Zosyn and vancomycin and clindamycin, at this time will discontinue clindamycin and continue with Zosyn and vancomycin, consultation for infectious disease was initiated. Status post amputation of fourth and fifth toe with Dr. Bustillos. Patient is currently postop day 3. Possible discussion of below knee amputation rather than attempt at possible revascularization. #2 sepsis, as evidenced by fever, leukocytosis, and elevated lactic acid present on admit. White blood cell improving to 16.0. Lactic acid improving 1.4. Infectious disease is following. Patient remains on Zosyn for IV antibiotics #3 hypoxic and hypercapnic respiratory failure with altered mental status changes secondary to severe sepsis. Patient was transferred to the intensive care unit and placed on mechanical ventilation. Critical care services are following #4. Hypotension secondary to septic shock. Levophed currently on hold. Blood pressure has improved #5. Acute kidney injury secondary to ATN secondary to hypotension as well as v ancomycin toxicity. Nephrology services are following. Ultrasound completed showing no evidence of hydronephrosis. Creatinine increasing to 4.12 and bun 56. Per nephrology services maintain D5 normal saline at 100 avoid nephrotoxins. Vancomycin and lisinopril have been discontinued. continue to monitor urine output closely #6 history of essential hypertension. Cardiology services following. EF 50- 55%. Per cardiology services no evidence of acute coronary syndrome at this time #7 insulin-dependent diabetes mellitus, with poor control due to noncompliance last hemoglobin A1c was 9.8 at this time will resume glipizide, Januvia and metformin, and cover was insulin to sliding scale will adjust medications as needed #8 underlying history of hypertension, however when patient was given his home medications of lisinopril and Norvasc, blood pressure was down to 90/56. At this time will continue was lisinopril and hold Norvasc and monitor closely. #9 underlying history of diabetic complications of peripheral neuropathy and retinopathy. #10 poor compliance with medical management, patient had extensive counseling in the last year, his A1c was down to 7.1 in June however it was up to 9.8 again recently. #11 underlying history of hyperlipidemia maintained on atorvastatin continue. #12. Hypoglycemia. Comments DC'd. Patient maintained on sliding scale coverage. Tube feedings have been initiated. hypoglycemia has resolved DVT prophylaxis heparin. GI prophylaxis Protonix Patient remains in the intensive care unit on mechanical ventilation Critical care, vascular surgery, infectious disease, cardiology and nephrology services following I performed an examination of the patient and discussed their management with the Nurse Practitioner. I have reviewed the Nurse Practitioner's notes and agree with the documented findings and plan of care
--- NOTE | 2019-01-20 10:29 | ECHOF ---
Referral Reason:LV FUNCTION MEASUREMENTS -------- HEIGHT: 162.6 cm WEIGHT: 117.5 kg BP: 136/47 FINDINGS -------- Sinus rhythm. Morbid Obesity This was a techncally difficult study with suboptimal views, , Lumason utilized for enhancement of im ages. Overall left ventricular systolic function is low-normal with, an EF between 50 - 55 %. Echo 01/07: Limited Echo for LV Function. 5.0mg OF Lumason UTLIZED: 2 OR MORE WALL SEGMENTS NOT VISUALIZED. There is no pericardial effusion. CONCLUSIONS -------- 1. Sinus rhythm. 2. Morbid Obesity 3. This was a techncally difficult study with suboptimal views, , Lumason utilized for enhancement of images. 4. Overall left ventricular systolic function is low-normal with, an EF between 50 - 55 %. 5. Echo 01/07: Limited Echo for LV Function. 6. 5.0mg OF Lumason UTLIZED: 2 OR MORE WALL SEGMENTS NOT VISUALIZED. 7. There is no pericardial effusion. [employer]ILER: Odette Chaparro RDCS
[2019-01-20 11:55] LABS: Glucose,Whole Blood 195 mg/dL (75-99)
[2019-01-20] MEDS ORDERED: FUROSEMIDE 10 MG/ML 10 ML VIAL IV STA (12:03)
--- NOTE | 2019-01-20 12:54 | P.PN ---
Subjective Progress Note Date: 01/20/19 Patient seen and examined. Patient remains in a sedation vacation, nephrology now on consult. Objective - Vital Signs Vital signs: Vital Signs Temp 98.8 F 01/20/19 08:00 Pulse 80 01/20/19 11:00 Resp 29 H 01/20/19 11:00 BP 104/56 01/20/19 10:00 Pulse Ox 97 01/20/19 11:00 Intake & Output 01/19/19 01/20/19 01/20/19 18:59 06:59 18:59 Intake Total 8696.096 0322 644.100 Output Total 290 885 200 Balance 4997.263 5716 444.100 Weight 117.5 kg Intake: IV 1500 1400 400 Piperacillin-Tazobactam 3 100 .375 gm In Sodium Chloride 0.9% 100 ml @ 25 mls/hr IVPB Q12H [place] Rx# :[id number] Sodium Chloride 0.9% 1, 1000 1300 000 ml @ 100 mls/hr IV . Q10H [place] Rx#:[id number] Sodium Chloride 0.9% 1, 400 000 ml @ 100 mls/hr IV . Q10H [place] Rx#:[id number] Sodium Chloride 0.9% 1, 500 000 ml @ 500 mls/hr IV . Q2H [facility] Rx#:[id number] Intake, IV Titration 76.474 300 114.100 Amount Norepinephrine 4 mg In 15.146 Sodium Chloride 0.9% 250 ml @ 0.05 MCG/KG/MIN 22. 384 mls/hr IV .[id number] [place] Rx#:[id number] Propofol 1,000 mg In 61.328 300 114.100 Empty Bag 1 bag @ Titrate IV .Q0M [place] Rx#: [id number] Tube Feeding 70 370 100 Other 60 30 Output: Urine 290 885 200 Other: Voiding Method Indwelling Catheter Indwelling Catheter ABP, PAP, CO, CI - Last Documented Arterial Blood Pressure 154/53 - Exam General appearance: In no acute distress, intubated and sedated at this time HET: Head is normocephalic and atraumatic. Heart: S1 S2. Regular rate and rhythm. Lungs: No crackles or wheezes are heard, few scattered rhonchi Abdomen: Soft, nondistended. Extremities: Right lower extremity without edema, third through fifth toe amputation, dressing removed, minimal drainage, and wound redressed wet to dry by nursing. - Labs CBC & Chem 7: 01/20/19 05:15 01/20/19 05:15 Labs: Abnormal Lab Results - Last 24 Hours (Table) 01/18/19 01/19/19 01/20/19 Range/Units 15:15 18:32 00:09 WBC (3.8-10.6) k/uL RBC (4.30-5.90) m/uL Hgb (13.0-17.5) gm/dL Hct (39.0-53.0) % Neutrophils # (1.3-7.7) k/uL Lymphocytes # (1.0-4.8) k/uL ABG pH 7.12 L* (7.35-7.45) ABG pCO2 81 H* (35-45) mmHg ABG O2 Saturation (94-97) % Chloride (98-107) mmol/L Carbon Dioxide (22-30) mmol/L BUN (9-20) mg/dL Creatinine (0.66-1.25) mg/dL Glucose (74-99) mg/dL POC Glucose (mg/dL) 151 H 126 H (75-99) mg/dL Calcium (8.4-10.2) mg/dL Total Protein (6.3-8.2) g/dL Albumin (3.5-5.0) g/dL 01/20/19 01/20/19 01/20/19 Range/Units 04:44 05:15 05:15 WBC 16.0 H (3.8-10.6) k/uL RBC 3.71 L (4.30-5.90) m/uL Hgb 11.2 L (13.0-17.5) gm/dL Hct 34.3 L (39.0-53.0) % Neutrophils # 14.2 H (1.3-7.7) k/uL Lymphocytes # 0.7 L (1.0-4.8) k/uL ABG pH (7.35-7.45) ABG pCO2 (35-45) mmHg ABG O2 Saturation 97.4 H (94-97) % Chloride 112 H (98-107) mmol/L Carbon Dioxide 21 L (22-30) mmol/L BUN 56 H (9-20) mg/dL Creatinine 4.17 H (0.66-1.25) mg/dL Glucose 168 H (74-99) mg/dL POC Glucose (mg/dL) (75-99) mg/dL Calcium 6.8 L (8.4-10.2) mg/dL Total Protein 4.8 L (6.3-8.2) g/dL Albumin 2.1 L (3.5-5.0) g/dL 01/20/19 01/20/19 Range/Units 05:41 11:53 WBC (3.8-10.6) k/uL RBC (4.30-5.90) m/uL Hgb (13.0-17.5) gm/dL Hct (39.0-53.0) % Neutrophils # (1.3-7.7) k/uL Lymphocytes # (1.0-4.8) k/uL ABG pH (7.35-7.45) ABG pCO2 (35-45) mmHg ABG O2 Saturation (94-97) % Chloride (98-107) mmol/L Carbon Dioxide (22-30) mmol/L BUN (9-20) mg/dL Creatinine (0.66-1.25) mg/dL Glucose (74-99) mg/dL POC Glucose (mg/dL) 154 H 195 H (75-99) mg/dL Calcium (8.4-10.2) mg/dL Total Protein (6.3-8.2) g/dL Albumin (3.5-5.0) g/dL Microbiology - Last 24 Hours (Table) 01/17/19 09:20 Anaerobic Culture - Final Toe - Right Fifth Anaerobic Gm Negative Bacilli Anaerobic Gm Negative Bacilli#2 01/17/19 09:20 Gram Stain - Preliminary Toe - Right Fifth Wound Culture - Preliminary Morganella morganii Group D Enterococcus Beta Hemolytic Streptococcus F 01/18/19 15:47 Gram Stain - Final Sputum Sputum Culture - Final Ирина albicans 01/15/19 20:20 Blood Culture - Preliminary Blood No Growth after 96 hours Assessment and Plan Assessment: Status post right foot fourth and fifth toe amputation Acute kidney failure #1 wet gangrene right fifth toe #2 uncontrolled type 2 diabetes #3 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 There is no signs of wet gangrene. Continue supportive care. Will continue to re-evaluate for possible limb salvage versus below the knee amputation. The above dictated assessment and findings were discussed with Dr. Bustillos. The impression and plan of care have been directed as dictated.
[2019-01-20] MEDS: HYDROmorphone 0.5 MG/0.5 ML SYRINGE IVP PRN (13:01)
--- NOTE | 2019-01-20 13:19 | P.PN ---
Subjective Patient is seen in follow-up for acute kidney injury. Renal function is a little worse today. Creatinine 4.17. He is maintained on normal saline at 100 mL an hour. Off vasopressors. Tube feeding has been started. Remains intubated. Vital signs are stable. General: The patient appeared well nourished and normally developed. HEENT: Head exam is unremarkable. Neck is without jugular venous distension. Intubated. LUNGS: Lungs are clear to auscultation and percussion. Breath sounds decreased. HEART: Rate and Rhythm are regular. First and second heart sounds normal. No murmurs, rubs or gallops. ABDOMEN: Abdominal exam reveals normal bowel sounds. Soft. EXTREMITITES: 1+ edema. Objective - Vital Signs Vital signs: Vital Signs Temp 98.8 F 01/20/19 08:00 Pulse 80 01/20/19 11:00 Resp 29 H 01/20/19 11:00 BP 104/56 01/20/19 10:00 Pulse Ox 97 01/20/19 11:00 Intake & Output 01/19/19 01/20/19 01/20/19 18:59 06:59 18:59 Intake Total 7547.190 4070 683.932 Output Total 290 885 200 Balance 9294.310 6851 483.932 Weight 117.5 kg Intake: IV 1500 1400 400 Piperacillin-Tazobactam 3 100 .375 gm In Sodium Chloride 0.9% 100 ml @ 25 mls/hr IVPB Q12H [place] Rx# :[id number] Sodium Chloride 0.9% 1, 1000 1300 000 ml @ 100 mls/hr IV . Q10H [place] Rx#:[id number] Sodium Chloride 0.9% 1, 400 000 ml @ 100 mls/hr IV . Q10H [place] Rx#:[id number] Sodium Chloride 0.9% 1, 500 000 ml @ 500 mls/hr IV . Q2H [facility] Rx#:[id number] Intake, IV Titration 76.474 300 153.932 Amount Norepinephrine 4 mg In 15.146 Sodium Chloride 0.9% 250 ml @ 0.05 MCG/KG/MIN 22. 384 mls/hr IV .[id number] [place] Rx#:[id number] Propofol 1,000 mg In 61.328 300 153.932 Empty Bag 1 bag @ Titrate IV .Q0M [place] Rx#: [id number] Tube Feeding 70 370 100 Other 60 30 Output: Urine 290 885 200 Other: Voiding Method Indwelling Catheter Indwelling Catheter ABP, PAP, CO, CI - Last Documented Arterial Blood Pressure 154/53 - Labs CBC & Chem 7: 01/20/19 05:15 01/20/19 05:15 Labs: Abnormal Lab Results - Last 24 Hours (Table) 01/18/19 01/19/19 01/20/19 Range/Units 15:15 18:32 00:09 WBC (3.8-10.6) k/uL RBC (4.30-5.90) m/uL Hgb (13.0-17.5) gm/dL Hct (39.0-53.0) % Neutrophils # (1.3-7.7) k/uL Lymphocytes # (1.0-4.8) k/uL ABG pH 7.12 L* (7.35-7.45) ABG pCO2 81 H* (35-45) mmHg ABG O2 Saturation (94-97) % Chloride (98-107) mmol/L Carbon Dioxide (22-30) mmol/L BUN (9-20) mg/dL Creatinine (0.66-1.25) mg/dL Glucose (74-99) mg/dL POC Glucose (mg/dL) 151 H 126 H (75-99) mg/dL Calcium (8.4-10.2) mg/dL Total Protein (6.3-8.2) g/dL Albumin (3.5-5.0) g/dL 01/20/19 01/20/19 01/20/19 Range/Units 04:44 05:15 05:15 WBC 16.0 H (3.8-10.6) k/uL RBC 3.71 L (4.30-5.90) m/uL Hgb 11.2 L (13.0-17.5) gm/dL Hct 34.3 L (39.0-53.0) % Neutrophils # 14.2 H (1.3-7.7) k/uL Lymphocytes # 0.7 L (1.0-4.8) k/uL ABG pH (7.35-7.45) ABG pCO2 (35-45) mmHg ABG O2 Saturation 97.4 H (94-97) % Chloride 112 H (98-107) mmol/L Carbon Dioxide 21 L (22-30) mmol/L BUN 56 H (9-20) mg/dL Creatinine 4.17 H (0.66-1.25) mg/dL Glucose 168 H (74-99) mg/dL POC Glucose (mg/dL) (75-99) mg/dL Calcium 6.8 L (8.4-10.2) mg/dL Total Protein 4.8 L (6.3-8.2) g/dL Albumin 2.1 L (3.5-5.0) g/dL 01/20/19 01/20/19 Range/Units 05:41 11:53 WBC (3.8-10.6) k/uL RBC (4.30-5.90) m/uL Hgb (13.0-17.5) gm/dL Hct (39.0-53.0) % Neutrophils # (1.3-7.7) k/uL Lymphocytes # (1.0-4.8) k/uL ABG pH (7.35-7.45) ABG pCO2 (35-45) mmHg ABG O2 Saturation (94-97) % Chloride (98-107) mmol/L Carbon Dioxide (22-30) mmol/L BUN (9-20) mg/dL Creatinine (0.66-1.25) mg/dL Glucose (74-99) mg/dL POC Glucose (mg/dL) 154 H 195 H (75-99) mg/dL Calcium (8.4-10.2) mg/dL Total Protein (6.3-8.2) g/dL Albumin (3.5-5.0) g/dL Microbiology - Last 24 Hours (Table) 01/17/19 09:20 Anaerobic Culture - Final Toe - Right Fifth Anaerobic Gm Negative Bacilli Anaerobic Gm Negative Bacilli#2 01/17/19 09:20 Gram Stain - Preliminary Toe - Right Fifth Wound Culture - Preliminary Morganella morganii Group D Enterococcus Beta Hemolytic Streptococcus F 01/18/19 15:47 Gram Stain - Final Sputum Sputum Culture - Final Ирина albicans 01/15/19 20:20 Blood Culture - Preliminary Blood No Growth after 96 hours Assessment and Plan Plan: Assessment: 1. Acute kidney injury secondary to ATN secondary to hypotension as well as vancomycin toxicity. Patient's creatinine was 1.1 on admission and is up to 4.17 today. No evidence of hydronephrosis noted on kidney ultrasound. 2. Right foot fourth and fifth toe wet gangrene status post amputation this admission. 3. Acute mixed hypercapnic and hypoxic respiratory failure. Currently intubated. 4. Insulin-dependent diabetes mellitus. Uncontrolled. 5. Metabolic acidosis secondary to acute kidney injury. 6. Volume overload. Plan: Decrease rate of normal saline to 50 mL an hour. Lasix 60 mg IV once today. Maintain tube feeding. Continue to monitor renal function and urine output. Continue to assess on daily basis for need for renal replacement therapy. Wean FiO2.
--- NOTE | 2019-01-20 16:22 | P.PN ---
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, poor compliance, dyslipidemia, dehydration 01/20/2019, patient seen eval examined during the rounds and labs reviewed medications reviewed critical care time spent 35 minutes, patient remains on assist control rate 18 and tidal volume of 500 along with PEEP of 5, patient is sedated with propofol drip but doesn't respond to simple stimuli, patient has been making good amount of urine levo fed is not require S patient is hemodynam ically stable urine output has improved to 50-60 mL an hour post Lasix which is advised by nephrology service urine output has improved, patient has been tolerating tube feed well given that volume overload situation due to hypotension and was given fluid for resuscitation patient gently being diuresed, she he remains on broad-spectrum antibiotic sliding scale insulin labs reviewed medications reviewed care plan discussed with the staff and 2 brothers at bedside at length, chest x-ray from today reviewed bilateral atelectasis and fluid overload is present overall suggestive of more of his CHF and pneumonia, white cell count is stable, arterial blood gases improved, BUN/creatinine continue to go up 56 and 4.17, sugars have been stabilized 01/19/2019, patient seen and evaluated examined in the ICU intubated on full ventilator support, patient had gradual loss of consciousness has been more lethargic arterial blood gases were checked shows hypercapnic and hypoxic respiratory failure was intubated in the ICU, patient has been placed on propofol he was volume depleted depleted aggressive fluid resuscitation were performed, is still require levo fed intermittently, patient was also noted to be hypoglycemic 7030 insulin and other oral hypoglycemic agents were discontinued, ultrasound of the abdomen has been performed which is reviewed no obvious hydronephrosis seen, patient has decreased urine output along with rising BUN/creatinine appeared to be acute tubular necrosis, patient also requiring intermittent bolus of D10 for hypoglycemia, wounds has been evaluated by vascular surgery noted recommendation, patient has very poor venous access, will put a central line in, critical care time 45 minutes during procedure, due to altered mental status CT of the head was performed which was negative 01/18/2019, patient seen eval examined while covering for Dr. Granger, waking up this morning slightly slow to respond but not confused, breathing comfortably denies any chest pain labs reviewed today patient has been evaluated by Dr. Bassett, white cell count is coming down to 19,000, lactic acid level is normalized, patient has been on broad-spectrum antibiotics with vascular surgery on board Objective - Vital Signs Vital signs: Vital Signs Temp 99.1 F 01/20/19 12:00 Pulse 64 01/20/19 15:00 Resp 18 01/20/19 15:00 BP 106/53 01/20/19 15:00 Pulse Ox 97 01/20/19 15:00 Intake & Output 01/19/19 01/20/19 01/20/19 18:59 06:59 18:59 Intake Total 2762.357 7009 883.932 Output Total 290 885 540 Balance 6374.462 3602 343.932 Weight 117.5 kg Intake: IV 1500 1400 600 Piperacillin-Tazobactam 3 100 .375 gm In Sodium Chloride 0.9% 100 ml @ 25 mls/hr IVPB Q12H [place] Rx# :[id number] Sodium Chloride 0.9% 1, 1000 1300 000 ml @ 100 mls/hr IV . Q10H [place] Rx#:[id number] Sodium Chloride 0.9% 1, 600 000 ml @ 50 mls/hr IV . Q20H [place] Rx#:[id number] Sodium Chloride 0.9% 1, 500 000 ml @ 500 mls/hr IV . Q2H [facility] Rx#:[id number] Intake, IV Titration 76.474 300 153.932 Amount Norepinephrine 4 mg In 15.146 Sodium Chloride 0.9% 250 ml @ 0.05 MCG/KG/MIN 22. 384 mls/hr IV .[id number] [place] Rx#:[id number] Propofol 1,000 mg In 61.328 300 153.932 Empty Bag 1 bag @ Titrate IV .Q0M [place] Rx#: [id number] Tube Feeding 70 370 100 Other 60 30 Output: Urine 290 885 540 Other: Voiding Method Indwelling Catheter Indwelling Catheter # Bowel Movements 1 ABP, PAP, CO, CI - Last Documented Arterial Blood Pressure 161/56 - Exam Intubated on full vent support on propofol getting IV fluids normal saline due to hypotension one more fluid bolus being given In general patient is alert and oriented 3 while propofol was stopped s HEENT head normocephalic and atraumatic Neck is supple no JVD no goiter no lymphadenopathy Chest exam reveals a few scattered rhonchi no wheezing Cardiac exam reveals regular heart sounds S1 and S2 no gallops no murmurs Abdomen is soft nontender no organomegaly with normal bowel sounds Extremity exam reveals minimal edema there is blackish discoloration of the right fifth toe with surrounding erythema involving the distal part of the right foot Neuro no gross focal neurological deficit, patient has anisocoria - Labs CBC & Chem 7: 01/20/19 05:15 01/20/19 05:15 Labs: Abnormal Lab Results - Last 24 Hours (Table) 01/18/19 01/19/19 01/20/19 Range/Units 15:15 18:32 00:09 WBC (3.8-10.6) k/uL RBC (4.30-5.90) m/uL Hgb (13.0-17.5) gm/dL Hct (39.0-53.0) % Neutrophils # (1.3-7.7) k/uL Lymphocytes # (1.0-4.8) k/uL ABG pH 7.12 L* (7.35-7.45) ABG pCO2 81 H* (35-45) mmHg ABG O2 Saturation (94-97) % Chloride (98-107) mmol/L Carbon Dioxide (22-30) mmol/L BUN (9-20) mg/dL Creatinine (0.66-1.25) mg/dL Glucose (74-99) mg/dL POC Glucose (mg/dL) 151 H 126 H (75-99) mg/dL Calcium (8.4-10.2) mg/dL Total Protein (6.3-8.2) g/dL Albumin (3.5-5.0) g/dL 01/20/19 01/20/19 01/20/19 Range/Units 04:44 05:15 05:15 WBC 16.0 H (3.8-10.6) k/uL RBC 3.71 L (4.30-5.90) m/uL Hgb 11.2 L (13.0-17.5) gm/dL Hct 34.3 L (39.0-53.0) % Neutrophils # 14.2 H (1.3-7.7) k/uL Lymphocytes # 0.7 L (1.0-4.8) k/uL ABG pH (7.35-7.45) ABG pCO2 (35-45) mmHg ABG O2 Saturation 97.4 H (94-97) % Chloride 112 H (98-107) mmol/L Carbon Dioxide 21 L (22-30) mmol/L BUN 56 H (9-20) mg/dL Creatinine 4.17 H (0.66-1.25) mg/dL Glucose 168 H (74-99) mg/dL POC Glucose (mg/dL) (75-99) mg/dL Calcium 6.8 L (8.4-10.2) mg/dL Total Protein 4.8 L (6.3-8.2) g/dL Albumin 2.1 L (3.5-5.0) g/dL 01/20/19 01/20/19 Range/Units 05:41 11:53 WBC (3.8-10.6) k/uL RBC (4.30-5.90) m/uL Hgb (13.0-17.5) gm/dL Hct (39.0-53.0) % Neutrophils # (1.3-7.7) k/uL Lymphocytes # (1.0-4.8) k/uL ABG pH (7.35-7.45) ABG pCO2 (35-45) mmHg ABG O2 Saturation (94-97) % Chloride (98-107) mmol/L Carbon Dioxide (22-30) mmol/L BUN (9-20) mg/dL Creatinine (0.66-1.25) mg/dL Glucose (74-99) mg/dL POC Glucose (mg/dL) 154 H 195 H (75-99) mg/dL Calcium (8.4-10.2) mg/dL Total Protein (6.3-8.2) g/dL Albumin (3.5-5.0) g/dL Microbiology - Last 24 Hours (Table) 01/17/19 09:20 Gram Stain - Final Toe - Right Fifth Wound Culture - Final Morganella morganii Enterococcus avium Beta Hemolytic Streptococcus F 01/17/19 09:20 Anaerobic Culture - Final Toe - Right Fifth Anaerobic Gm Negative Bacilli Anaerobic Gm Negative Bacilli#2 01/18/19 15:47 Gram Stain - Final Sputum Sputum Culture - Final Ирина albicans 01/15/19 20:20 Blood Culture - Preliminary Blood No Growth after 96 hours Assessment and Plan Assessment: Altered mental status Hypoxic and hypercapnic respiratory failure Acute on chronic renal failure Bilateral atelectasis and possible pneumonia Severe hypoglycemia 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 Surrounding cellulitis of right foot Sepsis and septic shock Insulin-dependent diabetes mellitus poorly controlled Hypertension hypertensive cardiovascular disease Dyslipidemia Plan: Cobos cultures, follow-up on culture results and report, continue antibiotic Continue vent support ventilated been adjusted Patient observation monitored off of propofol does follow simple commands Will observe and monitor anisocoria Renal consultation and recommendations reviewed Continue gentle diuresis Broad-spectrum antibiotics Critical care time 35 minutes excluding procedure Time with Patient: Greater than 30
[2019-01-20 17:51] LABS: Glucose,Whole Blood 192 mg/dL (75-99)
--- NOTE | 2019-01-20 20:27 | P.PN ---
Subjective Progress Note Date: 01/20/19 60-year-old male who has multiple medical troubles that includes peripheral vascular disease, coronary artery disease and diabetes mellitus type 2. Is related the patient was doing relatively well this year which point in time he was to be compliant to his medication regimen. However he appears by the fall was having difficulties and stopped his insulin treatments. His blood glucoses increased greatly and his hemoglobin A1c went to nearly 10. The patient now presents to Hospital of evidence of gangrenous changes to his fourth and fifth toes of the right foot. 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 The patient is directly postoperative period he is modestly comfortable but still with some effects of anesthesia. He relates he was not having much pain at home and it was because the areas were worsening and blackening that he sought care. 01/20/2019 patient remains intubated sedated with mechanical ventilation, failed a weanig attempt due to tachypneia foot remains with drainage but is not bleeding. Objective - Vital Signs Vital signs: Vital Signs Temp 99 F 01/20/19 20:00 Pulse 70 01/20/19 20:00 Resp 18 01/20/19 20:00 BP 128/62 01/20/19 20:00 Pulse Ox 96 01/20/19 20:00 Intake & Output 01/20/19 01/20/19 01/21/19 06:59 18:59 06:59 Intake Total 2070 1513.932 130 Output Total 885 850 140 Balance 1185 663.932 -10 Intake: IV 1400 900 50 Piperacillin-Tazobactam 3 100 100 .375 gm In Sodium Chloride 0.9% 100 ml @ 25 mls/hr IVPB Q12H [place] Rx# :[id number] Sodium Chloride 0.9% 1, 1300 000 ml @ 100 mls/hr IV . Q10H [place] Rx#:[id number] Sodium Chloride 0.9% 1, 800 50 000 ml @ 50 mls/hr IV . Q20H [place] Rx#:[id number] Intake, IV Titration 300 253.932 Amount Propofol 1,000 mg In 300 253.932 Empty Bag 1 bag @ Titrate IV .Q0M [place] Rx#: [id number] Tube Feeding 370 300 50 Other 60 30 Output: Urine 885 850 140 Other: Voiding Method Indwelling Catheter Indwelling Catheter # Bowel Movements 1 ABP, PAP, CO, CI - Last Documented Arterial Blood Pressure 131/47 - Exam The patient is intubated and mechanically ventilated seems comfortable HEENT: Anicteric conjunctiva are pink and moist nasal mucosa grossly intact without significant lesions, there is no thrush noted around the ET tube Neck: The neck is supple without significant lymphadenopathy or thyromegaly. Lungs: The symmetrical bilateral air entry reveal some basilar crackles Heart: Irregular soft S4 no murmur Abdomen: Obese, Positive bowel sounds soft and nontender without palpable masses or organomegaly. There was no guarding or rebound. Extremities: The upper extremities without acute lesions. The left foot has no acute open ulcerations. Right foot is with the postoperative dressing from the amputation which is a ray amputation from the fourth and fifth toes. Dressing is intact there is not extensive drainage Neuro: The patient is sedated [facility] relates that he did have eye opening to name. - Labs CBC & Chem 7: 01/20/19 05:15 01/20/19 05:15 Labs: Abnormal Lab Results - Last 24 Hours (Table) 01/18/19 01/20/19 01/20/19 Range/Units 15:15 00:09 04:44 WBC (3.8-10.6) k/uL RBC (4.30-5.90) m/uL Hgb (13.0-17.5) gm/dL Hct (39.0-53.0) % Neutrophils # (1.3-7.7) k/uL Lymphocytes # (1.0-4.8) k/uL ABG pH 7.12 L* (7.35-7.45) ABG pCO2 81 H* (35-45) mmHg ABG O2 Saturation 97.4 H (94-97) % Chloride (98-107) mmol/L Carbon Dioxide (22-30) mmol/L BUN (9-20) mg/dL Creatinine (0.66-1.25) mg/dL Glucose (74-99) mg/dL POC Glucose (mg/dL) 126 H (75-99) mg/dL Calcium (8.4-10.2) mg/dL Total Protein (6.3-8.2) g/dL Albumin (3.5-5.0) g/dL 01/20/19 01/20/19 01/20/19 Range/Units 05:15 05:15 05:41 WBC 16.0 H (3.8-10.6) k/uL RBC 3.71 L (4.30-5.90) m/uL Hgb 11.2 L (13.0-17.5) gm/dL Hct 34.3 L (39.0-53.0) % Neutrophils # 14.2 H (1.3-7.7) k/uL Lymphocytes # 0.7 L (1.0-4.8) k/uL ABG pH (7.35-7.45) ABG pCO2 (35-45) mmHg ABG O2 Saturation (94-97) % Chloride 112 H (98-107) mmol/L Carbon Dioxide 21 L (22-30) mmol/L BUN 56 H (9-20) mg/dL Creatinine 4.17 H (0.66-1.25) mg/dL Glucose 168 H (74-99) mg/dL POC Glucose (mg/dL) 154 H (75-99) mg/dL Calcium 6.8 L (8.4-10.2) mg/dL Total Protein 4.8 L (6.3-8.2) g/dL Albumin 2.1 L (3.5-5.0) g/dL 01/20/19 01/20/19 Range/Units 11:53 17:39 WBC (3.8-10.6) k/uL RBC (4.30-5.90) m/uL Hgb (13.0-17.5) gm/dL Hct (39.0-53.0) % Neutrophils # (1.3-7.7) k/uL Lymphocytes # (1.0-4.8) k/uL ABG pH (7.35-7.45) ABG pCO2 (35-45) mmHg ABG O2 Saturation (94-97) % Chloride (98-107) mmol/L Carbon Dioxide (22-30) mmol/L BUN (9-20) mg/dL Creatinine (0.66-1.25) mg/dL Glucose (74-99) mg/dL POC Glucose (mg/dL) 195 H 192 H (75-99) mg/dL Calcium (8.4-10.2) mg/dL Total Protein (6.3-8.2) g/dL Albumin (3.5-5.0) g/dL Microbiology - Last 24 Hours (Table) 01/19/19 14:20 Blood Culture - Preliminary Blood No Growth after 24 hours 01/17/19 09:20 Gram Stain - Final Toe - Right Fifth Wound Culture - Final Morganella morganii Enterococcus avium Beta Hemolytic Streptococcus F 01/17/19 09:20 Anaerobic Culture - Final Toe - Right Fifth Anaerobic Gm Negative Bacilli Anaerobic Gm Negative Bacilli#2 01/18/19 15:47 Gram Stain - Final Sputum Sputum Culture - Final Ирина albicans 01/15/19 20:20 Blood Culture - Preliminary Blood No Growth after 96 hours Laboratory Results WBC 16.0 k/uL (3.8-10.6) H 01/20/19 05:15 RBC 3.71 m/uL (4.30-5.90) L 01/20/19 05:15 Hgb 11.2 gm/dL (13.0-17.5) L 01/20/19 05:15 Hct 34.3 % (39.0-53.0) L 01/20/19 05:15 MCV 92.6 fL (80.0-100.0) 01/20/19 05:15 MCH 30.2 pg (25.0-35.0) 01/20/19 05:15 MCHC 32.7 g/dL (31.0-37.0) 01/20/19 05:15 RDW 12.2 % (11.5-15.5) 01/20/19 05:15 Plt Count 200 k/uL (150-450) 01/20/19 05:15 Neutrophils % 89 % 01/20/19 05:15 Lymphocytes % 4 % 01/20/19 05:15 Monocytes % 3 % 01/20/19 05:15 Eosinophils % 3 % 01/20/19 05:15 Basophils % 0 % 01/20/19 05:15 Neutrophils # 14.2 k/uL (1.3-7.7) H 01/20/19 05:15 Lymphocytes # 0.7 k/uL (1.0-4.8) L 01/20/19 05:15 Monocytes # 0.5 k/uL (0-1.0) 01/20/19 05:15 Eosinophils # 0.5 k/uL (0-0.7) 01/20/19 05:15 Basophils # 0.0 k/uL (0-0.2) 01/20/19 05:15 Hypochromasia Slight 01/20/19 05:15 Sample Site edwina 01/20/19 04:44 ABG pH 7.37 (7.35-7.45) 01/20/19 04:44 ABG pCO2 37 mmHg (35-45) 01/20/19 04:44 ABG pO2 99 mmHg (83-108) 01/20/19 04:44 ABG HCO3 21 mmol/L (21-25) 01/20/19 04:44 ABG Total CO2 23 mmol/L (19-24) 01/20/19 04:44 ABG O2 Saturation 97.4 % (94-97) H 01/20/19 04:44 ABG Base Excess -3.9 mmol/L 01/20/19 04:44 Jd Test Yes 01/20/19 04:44 ABG Lactic Acid 0.7 mmol/L (0.5-1.6) 01/19/19 04:15 FiO2 50 % 01/20/19 04:44 Sodium 140 mmol/L (137-145) 01/20/19 05:15 Potassium 3.8 mmol/L (3.5-5.1) 01/20/19 05:15 Chloride 112 mmol/L (98-107) H 01/20/19 05:15 Carbon Dioxide 21 mmol/L (22-30) L 01/20/19 05:15 Anion Gap 7 mmol/L 01/20/19 05:15 BUN 56 mg/dL (9-20) H 01/20/19 05:15 Creatinine 4.17 mg/dL (0.66-1.25) H 01/20/19 05:15 Est GFR (CKD-EPI)AfAm 16 (>60 ml/min/1.73 sqM) 01/20/19 05:15 Est GFR (CKD-EPI)NonAf 14 (>60 ml/min/1.73 sqM) 01/20/19 05:15 Glucose 168 mg/dL (74-99) H 01/20/19 05:15 POC Glucose (mg/dL) 192 mg/dL (75-99) H 01/20/19 17:39 POC Glu Sourcing Intern ID 01/20/19 17:39 Lactic Ac Sepsis Rflx Y 01/16/19 01:23 Plasma Lactic Acid Jose Carlos 1.4 mmol/L (0.7-2.0) 01/16/19 05:28 Calcium 6.8 mg/dL (8.4-10.2) L 01/20/19 05:15 Magnesium 2.1 mg/dL (1.6-2.3) 01/19/19 04:35 Total Bilirubin 0.4 mg/dL (0.2-1.3) 01/20/19 05:15 AST 24 U/L (17-59) 01/20/19 05:15 ALT 28 U/L (21-72) 01/20/19 05:15 Alkaline Phosphatase 63 U/L (38-126) 01/20/19 05:15 Total Protein 4.8 g/dL (6.3-8.2) L 01/20/19 05:15 Albumin 2.1 g/dL (3.5-5.0) L 01/20/19 05:15 Urine Color Yellow 01/18/19 17:04 Urine Appearance Cloudy (Clear) 01/18/19 17:04 Urine pH 5.0 (5.0-8.0) 01/18/19 17:04 Ur Specific [place] 1.018 (1.001-1.035) 01/18/19 17:04 Urine Protein 1+ (Negative) H 01/18/19 17:04 Urine Glucose (UA) 1+ (Negative) H 01/18/19 17:04 Urine Ketones Negative (Negative) 01/18/19 17:04 Urine Blood Negative (Negative) 01/18/19 17:04 Urine Nitrite Negative (Negative) 01/18/19 17:04 Urine Bilirubin Negative (Negative) 01/18/19 17:04 Urine Urobilinogen <2.0 mg/dL (<2.0) 01/18/19 17:04 Ur Leukocyte Esterase Negative (Negative) 01/18/19 17:04 Urine WBC 2 /hpf (0-5) 01/18/19 17:04 Amorphous Sediment Few /hpf (None) H 01/18/19 17:04 Random Vancomycin 27.0 ug/mL 01/20/19 05:15 C. difficile (EIA) Intrp Negative (Negative) 01/16/19 15:01 Microbiology 01/19/19 14:20 Blood Blood Culture - Preliminary No Growth after 24 hours 01/17/19 09:20 Toe - Right Fifth Gram Stain - Final 01/17/19 09:20 Toe - Right Fifth Wound Culture - Final Morganella morganii Enterococcus avium Beta Hemolytic Streptococcus F 01/17/19 09:20 Toe - Right Fifth Anaerobic Culture - Final Anaerobic Gm Negative Bacilli Anaerobic Gm Negative Bacilli#2 01/18/19 15:47 Sputum Gram Stain - Final 01/18/19 15:47 Sputum Sputum Culture - Final Ирина albicans 01/15/19 20:20 Blood Blood Culture - Preliminary No Growth after 96 hours - Imaging and Cardiology Chest x-ray: image reviewed (No acute change) Assessment and Plan (1) Gangrene Narrative/Plan: 68-year-old male with long-standing history of multiple medical troubles that i ncludes diabetes mellitus type 2 presents to hospital with evidence of what appears to be gangrenous changes to the right foot fifth toe. Because interchanged and was apparently and with some drainage and odor he sought care. He has not been seen by the vascular surgeon is undergone the rehabilitation to toes 4 and 5. However appears to be other ulceration and he may require further more extensive surgical intervention the next 48 hours. Cultures are pending. Extensive antibiotic therapy with Zosyn and vancomycin is being utilized at this point in time for the diabetic foot ulceration until there is further data. Once surgical interventions are completed we'll then be able to determine a course of antibiotic therapy at discharge. Unclear if he can care for himself in the home setting. Depending on the findings he may be a good candidate for negative pressure therapy. He would be ideal candidate follow-up with the wound healing Center to determine if outpatient hyperbaric oxygen therapy could be utilized for limb salvage. 01/20/2019 the patient remains in intensive care unit intubated sedated and mechanically ventilated and did not progress well with the sedation holiday to day and weaning trial. He is currently on vancomycin and Zosyn for the polymicrobial infection that was found exam the surgical debridement. I have the pleasure of discussing the case with the vascular surgeon and patient has no improvement in the next day and continues to fail ventilation and has no further improvement within be a candidate for an amputation to try to allow improvement of his underlying status which greater than allow progression to extubation future. Antibiotic therapy continues with vancomycin and Zosyn with the polymicrobial infection found at the time of the debridement. Current Visit: Yes Status: Acute Code(s): I96 - GANGRENE, NOT ELSEWHERE CLASSIFIED SNOMED Code(s): 555146057 (2) Hyperglycemia Current Visit: Yes Status: Acute Code(s): R73.9 - HYPERGLYCEMIA, UNSPECIFIED SNOMED Code(s): 04097691 (3) Lower extremity cellulitis Current Visit: No Status: Acute Code(s): L03.119 - CELLULITIS OF UNSPECIFIED PART OF LIMB SNOMED Code(s): 165626958
[2019-01-20] MEDS: LATANOPROST 0.005% OPHTH DROPS 2.5 ML BTL LEFT EYE SCH (20:44)
[2019-01-20 23:54] LABS: Glucose,Whole Blood 198 mg/dL (75-99)
[2019-01-21] MEDS: INSULIN ASPART (NovoLOG) 100 UNIT/ML VIAL SQ SCH ×5 (00:07→23:27)
[2019-01-21] MEDS: HEPARIN SODIUM,PORCINE 5,000 UNIT/ML 1 ML VIAL SQ SCH ×4 (00:08→23:27)
[2019-01-21] MEDS: PROPOFOL 1,000 MG in EMPTY BAG 1 BAG IV SCH ×5 (02:23→22:37)
[2019-01-21] MEDS: HYDROmorphone 0.5 MG/0.5 ML SYRINGE IVP PRN (02:24)
[2019-01-21] MEDS: SODIUM CHLORIDE 0.9% 1,000 ML IV SCH ×2 (02:27→15:27)
[2019-01-21 04:07] LABS: ABG HCO3 20 mmol/L (21-25); ABG Oxygen Saturation 97.4 % (94-97); ABG PCO2 38 mmHg (35-45); ABG PH 7.33 (7.35-7.45); ABG PO2 97 mmHg (83-108); ABG TCO2 21 mmol/L (19-24)
[2019-01-21 04:30] LABS: Basophils # (A) 0.1 k/uL (0-0.2); Basophils % (A) 0 %; Eosinophils # (A) 0.4 k/uL (0-0.7); Eosinophils % (A) 3 %; HCT 32.3 % (39.0-53.0); HGB 10.7 gm/dL (13.0-17.5); Hypochromasia Slight; Lymphocytes # (A) 0.9 k/uL (1.0-4.8); Lymphocytes % (A) 6 %; MCH 30.3 pg (25.0-35.0); MCV 91.9 fL (80.0-100.0); Mean Platelet Volume 9.5; Monocytes # (A) 0.5 k/uL (0-1.0); Monocytes % (A) 4 %; Neutrophils # (A) 12.2 k/uL (1.3-7.7); Neutrophils % (A) 86 %; Platelet Count 202 k/uL (150-450); RBC 3.52 m/uL (4.30-5.90); RDW 12.3 % (11.5-15.5); WBC 14.1 k/uL (3.8-10.6)
[2019-01-21 04:31] LABS: Allen Test Performed? no
[2019-01-21] MEDS: NOREPINEPHRINE 4 MG in SODIUM CHLORIDE 0.9% 250 ML IV SCH ×2 (04:59→11:29)
[2019-01-21 05:05] LABS: Albumin 2.1 g/dL (3.5-5.0); Phosphorus 5.9 mg/dL (2.5-4.5); Potassium 3.8 mmol/L (3.5-5.1); Total Bilirubin 0.5 mg/dL (0.2-1.3); Total Protein 4.7 g/dL (6.3-8.2)
[2019-01-21 06:03] LABS: Glucose,Whole Blood 186 mg/dL (75-99)
[2019-01-21] MEDS: PIPERACILLIN-TAZOBACTAM 3.375 GM in SODIUM CHLORIDE 0.9% 100 ML IVPB SCH ×2 (06:15→17:16)
[2019-01-21] MEDS: PANTOPRAZOLE 40 MG/10 ML VIAL IV SCH (08:40)
[2019-01-21] MEDS: CHLORHEXIDINE GLUCONATE 15 ML CUP MUCOUS MEM SCH ×2 (08:41→21:15)
--- NOTE | 2019-01-21 09:38 | XR ---
EXAMINATION TYPE: XR chest 1V portable DATE OF EXAM: 01/21/2019 CLINICAL HISTORY: OG tube placement, possible aspiration. TECHNIQUE: Single AP portable semiupright view of the chest is obtained. COMPARISON: Chest x-ray from earlier today and older studies FINDINGS: Stable orogastric tube projecting below diaphragm and right internal jugular central venou s catheter. Current study is suboptimal in evaluating endotracheal tube as both internal and external tips overlie the trachea, more inferior tip is favored external to patient. Both are above cheryl. O verlying EKG leads redemonstrated Persistent cardiomegaly and bibasilar opacities with central vascular congestion and low lung volumes . Osseous structures are intact. IMPRESSION: Overall stable findings from most recent x-ray. Low lung volumes and cardiomegaly with ce ntral vascular congestion and small bilateral pleural effusions are felt to reflect CHF exacerbation and/or fluid overload state. In addition there is bibasilar infiltrate and/or atelectasis noted.
[2019-01-21] MEDS: GABAPENTIN 100 MG CAP PO SCH ×3 (09:46→21:15)
[2019-01-21] MEDS: FLUoxetine HCL 20 MG CAP PO SCH (09:46)
[2019-01-21] MEDS: BRIMONIDINE TARTRATE 0.2% DROPS 5 ML BTL LEFT EYE SCH ×3 (09:46→21:17)
[2019-01-21] MEDS: DORZOLAMIDE HCL 2% DROPS 10 ML BTL LEFT EYE SCH ×3 (09:47→21:18)
[2019-01-21] MEDS: TIMOLOL 0.5% OPHTH DROPS 5 ML BTL LEFT EYE SCH ×2 (09:47→21:18)
--- NOTE | 2019-01-21 09:50 | PN ---
PROGRESS NOTE Mr. Saenz is a 68-year-old male who underwent amputation of the toes therapy from became severely dyspneic with respiratory failure requiring mechanical ventilation. He remains intubated, sedated, in sinus mechanism. There is no evidence of ventricular ectopic activity. He underwent an echocardiogram yesterday that showed a preserved systolic function. There was no evidence of segmental wall motion abnormality and no significant pericardial effusion. He has real failure with acute kidney injury. The patient could not tolerate a week a trial yesterday. He is back on the ventilator and sedated. He continues to be at this time on the Vantin subcu heparin the [place] in [facility] and has received a dose of IV Lasix yesterday. PHYSICAL EXAMINATION: Blood pressure 102/50 with a heart in 70s. LUNGS: Clear anteriorly no wheezes. HEART: Regular rhythm S1, S2. No S3. No gallop. ABDOMEN: Soft. Positive bowel sounds. EXTREMITIES: j dressing in place with 1+ edema. LAB DATA: Lab data revealed BUN and creatinine 57 and 4.35 and EBU of 3.8 with hemoglobin of 10.7. Chest x-ray shows mild congestion. IMPRESSION: 1. Respiratory failure with post surgical intervention was amputation. 2. Possible pneumonia. 3. Worsening chronic kidney acute kidney injury. 4. Diabetes. 5. History of hyperlipidemia. RECOMMENDATION: From the cardiac standpoint, there is no evidence of acute CAD, ischemic event and no evidence of arrhythmia. The patient has been followed by the state this is 18 and they will address the issue of weaning his ventilator. We will see him on as-needed basis. Please feel free to call us for any question. MMODL / IJN: [id number] /
--- NOTE | 2019-01-21 10:38 | P.PN ---
Subjective Progress Note Date: 01/21/19 Refugio Saenz, is a 68-year-old male who presented to [facility] emergency room with pain in the right foot, he was evaluated in emergency room and had blackish discoloration of the right fifth toe with surrounding erythema and tenderness, patient was started on IV antibiotics Zosyn, vancomycin, and clindamycin, he was admitted to medical floor vascular surgery consultation was requested for possible amputation due to evidence of gangrene. Infectious disease consultation was requested. Patient has a known history of insulin-dependent diabetes mellitus, his glucose level was well controlled up until September of this year his A1c in June was 7.1 and in September was 7.3 however apparently patient stopped taking his insulin and his medications and his A1c was up to 9.8 in November, he has a known history of right foot ulcer he was admitted to the hospital with right foot cellulitis and ulcer in 2014 and he was followed at the wound care clinic in 2015 however he was doing well up until recently. Patient also has a known history of hypertension, hyperlipidemia, he denies any history of coronary artery disease or congestive heart failure, he had an echocardiogram done in 2014 at that time he had normal left ventricular function was normal ejection fraction, no significant valvular disease and no pulmonary hypertension. 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 On 01/17/2019 patient's alert and oriented 3. Patient had fourth and fifth toe amputation with Dr. Bustillos this morning. Patient having some low blood pressure will give 500 mL bolus. Patient denies chest pain or shortness of breath. Patient denies nausea vomiting or diarrhea. Patient is having some increased pain to foot area pain medications ordered 01/18/2019, patient seen eval examined while covering for Dr. Granger, waking up this morning slightly slow to respond but not confused, breathing comfortably denies any chest pain labs reviewed today patient has been evaluated by Dr. Bassett, white cell count is coming down to 19,000, lactic acid level is normalized, patient has been on broad-spectrum antibiotics with vascular surgery on board 01/19/2019, patient seen and evaluated examined in the ICU intubated on full ventilator support, patient had gradual loss of consciousness has been more lethargic arterial blood gases were checked shows hypercapnic and hypoxic respiratory failure was intubated in the ICU, patient has been placed on propo fol he was volume depleted depleted aggressive fluid resuscitation were performed, is still requiring levophed intermittently, patient was also noted to be hypoglycemic 7030 insulin and other oral hypoglycemic agents were discontinued, ultrasound of the abdomen has been performed which is reviewed no obvious hydronephrosis seen, patient has decreased urine output along with rising BUN/creatinine appeared to be acute tubular necrosis, patient also requiring intermittent bolus of D10 for hypoglycemia, wounds has been evaluated by vascular surgery noted recommendation, patient has very poor venous access, will put a central line in, critical care time 45 minutes during procedure, due to altered mental status CT of the head was performed which was negative On 01/20/2019 patient remains in the intensive care unit on mechanical ventilation. Levophed has been on hold blood pressures has sustained. Creatinine has increased to 4.17 and bun 56. Nephrology services are following. Per nursing staff patient does follow commands during sedation holiday ABGs have improved. Discussed case with vascular surgeon nurse practitioner possible BKA discussion. White blood cell decreasing to 16.0. Critical care services are following. Patient remains on Zosyn for IV antibiotics. Infectious disease following 01/21/2019 patient remains on mechanical ventilation on in the intensive care unit. Patient remains sedated, on propofol. However per nursing staff patient does follow commands during sedation holiday. Patient is on 50% FiO2, 5 PEEP, tidal volume 500. Levophed off since 01/20/20. Blood pressure remains in the 130's-150's systolic. Creatinine 4.35 from 4.17 and BUN 57 from 56, Calcium 7.0, phosphorus 5.9 Nephrology is following. Orogastric tube replaced this morning. Per nursing staff OG tube was coiled in patient's mouth with tube feeds running. Chest x-ray repeated, no significant change from previous. ABG improving, still metabolic acidosis. WBC of 14.1 down from 16. Afebrile. Infectious disease is following patient is maintained on Zosyn. Will send C. diff sample due to new onset diarrhea for 1 day. Hyperglycemia noted (glucose 200's). Will discuss tube feed formula with dietary. If no changes can be made will adjust sliding scale. Objective - Vital Signs Vital signs: Vital Signs Temp 99.6 F 01/21/19 08:00 Pulse 71 01/21/19 09:00 Resp 20 01/21/19 09:00 BP 133/64 01/21/19 09:00 Pulse Ox 96 01/21/19 09:00 Intake & Output 01/20/19 01/21/19 01/21/19 18:59 06:59 18:59 Intake Total 0124.581 3125.442 325 Output Total 850 915 215 Balance 663.932 369.442 110 Weight 124.4 kg Intake: IV 900 650 200 Piperacillin-Tazobactam 3 100 100 50 .375 gm In Sodium Chloride 0.9% 100 ml @ 25 mls/hr IVPB Q12H [place] Rx# :[id number] Sodium Chloride 0.9% 1, 800 550 150 000 ml @ 50 mls/hr IV . Q20H [place] Rx#:[id number] Intake, IV Titration 253.932 169.442 100 Amount Propofol 1,000 mg In 253.932 169.442 100 Empty Bag 1 bag @ Titrate IV .Q0M [place] Rx#: [id number] Tube Feeding 300 375 25 Other 60 90 Output: Urine 850 915 215 Other: Voiding Method Indwelling Catheter Indwelling Catheter Indwelling Catheter # Bowel Movements 1 ABP, PAP, CO, CI - Last Documented Arterial Blood Pressure 138/50 - Exam Patient sedated this morning. Full neuro exam unable to obtain HEENT head normocephalic and atraumatic Neck is supple no JVD no goiter no lymphadenopathy Chest exam reveals diminished lung sounds, a few scattered rhonchi no wheezing Cardiac exam reveals regular heart sounds S1 and S2 no gallops no murmurs Abdomen is obese, soft nontender no organomegaly with normal bowel sounds Extremity exam reveals surgical site with nonpurulent drainage, wound bed moist and red, erythema involving the distal part of the right foot Neuro no gross focal neurological deficit. - Labs CBC & Chem 7: 01/21/19 04:10 01/21/19 04:10 Labs: Abnormal Lab Results - Last 24 Hours (Table) 01/20/19 01/20/19 01/20/19 Range/Units 11:53 17:39 23:52 WBC (3.8-10.6) k/uL RBC (4.30-5.90) m/uL Hgb (13.0-17.5) gm/dL Hct (39.0-53.0) % Neutrophils # (1.3-7.7) k/uL Lymphocytes # (1.0-4.8) k/uL ABG pH (7.35-7.45) ABG HCO3 (21-25) mmol/L ABG O2 Saturation (94-97) % Chloride (98-107) mmol/L Carbon Dioxide (22-30) mmol/L BUN (9-20) mg/dL Creatinine (0.66-1.25) mg/dL Glucose (74-99) mg/dL POC Glucose (mg/dL) 195 H 192 H 198 H (75-99) mg/dL Calcium (8.4-10.2) mg/dL Phosphorus (2.5-4.5) mg/dL ALT (21-72) U/L Total Protein (6.3-8.2) g/dL Albumin (3.5-5.0) g/dL 01/21/19 01/21/19 01/21/19 Range/Units 04:06 04:10 04:10 WBC 14.1 H (3.8-10.6) k/uL RBC 3.52 L (4.30-5.90) m/uL Hgb 10.7 L (13.0-17.5) gm/dL Hct 32.3 L (39.0-53.0) % Neutrophils # 12.2 H (1.3-7.7) k/uL Lymphocytes # 0.9 L (1.0-4.8) k/uL ABG pH 7.33 L (7.35-7.45) ABG HCO3 20 L (21-25) mmol/L ABG O2 Saturation 97.4 H (94-97) % Chloride 113 H (98-107) mmol/L Carbon Dioxide 20 L (22-30) mmol/L BUN 57 H (9-20) mg/dL Creatinine 4.35 H (0.66-1.25) mg/dL Glucose 192 H (74-99) mg/dL POC Glucose (mg/dL) (75-99) mg/dL Calcium 7.0 L (8.4-10.2) mg/dL Phosphorus 5.9 H (2.5-4.5) mg/dL ALT 17 L (21-72) U/L Total Protein 4.7 L (6.3-8.2) g/dL Albumin 2.1 L (3.5-5.0) g/dL 01/21/19 Range/Units 06:02 WBC (3.8-10.6) k/uL RBC (4.30-5.90) m/uL Hgb (13.0-17.5) gm/dL Hct (39.0-53.0) % Neutrophils # (1.3-7.7) k/uL Lymphocytes # (1.0-4.8) k/uL ABG pH (7.35-7.45) ABG HCO3 (21-25) mmol/L ABG O2 Saturation (94-97) % Chloride (98-107) mmol/L Carbon Dioxide (22-30) mmol/L BUN (9-20) mg/dL Creatinine (0.66-1.25) mg/dL Glucose (74-99) mg/dL POC Glucose (mg/dL) 186 H (75-99) mg/dL Calcium (8.4-10.2) mg/dL Phosphorus (2.5-4.5) mg/dL ALT (21-72) U/L Total Protein (6.3-8.2) g/dL Albumin (3.5-5.0) g/dL Microbiology - Last 24 Hours (Table) 01/15/19 20:20 Blood Culture - Preliminary Blood No Growth after 120 hours 01/19/19 14:20 Blood Culture - Preliminary Blood No Growth after 24 hours 01/17/19 09:20 Gram Stain - Final Toe - Right Fifth Wound Culture - Final Morganella morganii Enterococcus avium Beta Hemolytic Streptococcus F 01/17/19 09:20 Anaerobic Culture - Final Toe - Right Fifth Anaerobic Gm Negative Bacilli Anaerobic Gm Negative Bacilli#2 01/18/19 15:47 Gram Stain - Final Sputum Sputum Culture - Final Ирина albicans Assessment and Plan Assessment: #1 gangrene involving the right fifth toe with surrounding cellulitis, patient was started on IV antibiotic in the emergency room including Zosyn and vancomycin and clindamycin, at this time will discontinue clindamycin and continue with Zosyn and vancomycin, consultation for infectious disease was initiated. Status post amputation of fourth and fifth toe with Dr. Bustillos. Patient is currently postop day 4. Possible discussion of below knee amputation rather than attempt at possible revascularization. #2 sepsis, as evidenced by fever, leukocytosis, and elevated lactic acid present on admit. White blood cell improving to 14.1 from 16. Lactic acid normalized, 0.7. Infectious disease is following. Patient remains on Zosyn for IV antibiotics #3 hypoxic and hypercapnic respiratory failure with altered mental status changes secondary to severe sepsis. Patient was transferred to the intensive care unit and placed on mechanical ventilation. Patient is sedated on propofol . Per nursing staff patient is following commands . Vent things 50 FiO2, 5. 500 tidal volume. Critical care services are following. #4. Hypotension secondary to septic shock. Levophed currently off. Blood pressure has improved, systolic 130s to 150s. #5. Acute kidney injury secondary to ATN secondary to hypotension as well as vancomycin toxicity. Nephrology services are following. Ultrasound completed showing no evidence of hydronephrosis. Creatinine increasing to 4. 35 and bun 57. Per nephrology services maintain 0.9 normal saline at 50/ml, avoid nephrotoxins. Vancomycin and lisinopril have been discontinued. continue to monitor urine output closely #6 history of essential hypertension. Cardiology services following. EF 50- 55%. Per cardiology services no evidence of acute coronary syndrome at this time #7 insulin-dependent diabetes mellitus, with poor control due to noncompliance last hemoglobin A1c was 9.8 at this time will hold glipizide, Januvia and metformin, and cover was insulin to sliding scale will adjust medications as needed. Blood sugars have been in the 200s after episode of hypoglycemia. Will review tube feed Formula if no changes can be made we'll increase sliding scale. #8 underlying history of hypertension, however when patient was given his home medications of lisinopril and Norvasc, blood pressure was down to 90/56. At this time will continue was lisinopril and hold Norvasc and monitor closely. #9 underlying history of diabetic complications of peripheral neuropathy and retinopathy. #10 poor compliance with medical management, patient had extensive counseling in the last year, his A1c was down to 7.1 in June however it was up to 9.8 again recently. #11 underlying history of hyperlipidemia maintained on atorvastatin, on hold. #12. Hypoglycemia. Home meds DC'd. Patient maintained on sliding scale coverage. Tube feedings have been initiated. Hypoglycemia has resolved #13. Suspected aspiration. Orogastric tube was coiled in the patient's mouth with tube feeds running. Tube was removed and replaced. Chest x-ray completed. Overall stable findings, no significant change from prior, bilateral small pleural effusions noted, CHF exacerbation versus fluid overload state. DVT prophylaxis heparin. GI prophylaxis Protonix Patient remains in the intensive care unit on mechanical ventilation Critical care, vascular surgery, infectious disease, cardiology and nephrology services following I performed an examination of the patient and discussed their management with the Nurse Practitioner. I have reviewed the Nurse Practitioner's notes and agree with the documented findings and plan of care
--- NOTE | 2019-01-21 10:44 | XR ---
EXAMINATION TYPE: XR chest 1V portable DATE OF EXAM: 01/21/2019 COMPARISON: 01/20/2019 HISTORY: Shortness of breath TECHNIQUE: Single frontal view of the chest is obtained. FINDINGS: There are bilateral pleural effusions with cardiomegaly and bibasilar infiltrate. There is a diffuse interstitial pattern. ET and NG tubes stable. Right-sided central line stable. Tip near th e region of the right atrium but poorly developed identified. IMPRESSION: 1. Bilateral diffuse pleural-parenchymal disease correlate for CHF. Underlying pneumonia not excluded . Findings stable.
[2019-01-21] MEDS: MORPHINE SULFATE 2 MG/ML SYRINGE IVP PRN (10:55)
--- NOTE | 2019-01-21 11:42 | P.PN ---
<Yolie Hi - Last Filed: 01/21/19 11:41> Subjective Progress Note Date: 01/21/19 Patient seen and examined. Patient remains intubated, light sedation responsive to stimuli. Nephrology now on consult. Possible aspiration related to displaced OG tube. Portable Xray at . Patient remains afebrile, WBC 14.1, Hg 10.7, Hct 32.3, platelets 202, BUN 57, Creatinine 4.35. Objective - Vital Signs Vital signs: Vital Signs Temp 99.6 F 01/21/19 08:00 Pulse 71 01/21/19 09:00 Resp 20 01/21/19 09:00 BP 133/64 01/21/19 09:00 Pulse Ox 96 01/21/19 09:00 Intake & Output 01/20/19 01/21/19 01/21/19 18:59 06:59 18:59 Intake Total 0451.930 7366.442 325 Output Total 850 915 215 Balance 663.932 369.442 110 Weight 124.4 kg Intake: IV 900 650 200 Piperacillin-Tazobactam 3 100 100 50 .375 gm In Sodium Chloride 0.9% 100 ml @ 25 mls/hr IVPB Q12H [place] Rx# :[id number] Sodium Chloride 0.9% 1, 800 550 150 000 ml @ 50 mls/hr IV . Q20H [place] Rx#:[id number] Intake, IV Titration 253.932 169.442 100 Amount Propofol 1,000 mg In 253.932 169.442 100 Empty Bag 1 bag @ Titrate IV .Q0M [place] Rx#: [id number] Tube Feeding 300 375 25 Other 60 90 Output: Urine 850 915 215 Other: Voiding Method Indwelling Catheter Indwelling Catheter # Bowel Movements 1 ABP, PAP, CO, CI - Last Documented Arterial Blood Pressure 138/50 - Exam General appearance: In no acute distress, intubated and sedated at this time HET: Head is normocephalic and atraumatic. Heart: S1 S2. Regular rate and rhythm. Lungs: No crackles or wheezes are heard, few scattered rhonchi Abdomen: Soft, nondistended. Extremities: Right lower extremity without edema, wound with dressing, CDI. - Labs CBC & Chem 7: 01/21/19 04:10 01/21/19 04:10 Labs: Abnormal Lab Results - Last 24 Hours (Table) 01/20/19 01/20/19 01/20/19 Range/Units 11:53 17:39 23:52 WBC (3.8-10.6) k/uL RBC (4.30-5.90) m/uL Hgb (13.0-17.5) gm/dL Hct (39.0-53.0) % Neutrophils # (1.3-7.7) k/uL Lymphocytes # (1.0-4.8) k/uL ABG pH (7.35-7.45) ABG HCO3 (21-25) mmol/L ABG O2 Saturation (94-97) % Chloride (98-107) mmol/L Carbon Dioxide (22-30) mmol/L BUN (9-20) mg/dL Creatinine (0.66-1.25) mg/dL Glucose (74-99) mg/dL POC Glucose (mg/dL) 195 H 192 H 198 H (75-99) mg/dL Calcium (8.4-10.2) mg/dL Phosphorus (2.5-4.5) mg/dL ALT (21-72) U/L Total Protein (6.3-8.2) g/dL Albumin (3.5-5.0) g/dL 01/21/19 01/21/19 01/21/19 Range/Units 04:06 04:10 04:10 WBC 14.1 H (3.8-10.6) k/uL RBC 3.52 L (4.30-5.90) m/uL Hgb 10.7 L (13.0-17.5) gm/dL Hct 32.3 L (39.0-53.0) % Neutrophils # 12.2 H (1.3-7.7) k/uL Lymphocytes # 0.9 L (1.0-4.8) k/uL ABG pH 7.33 L (7.35-7.45) ABG HCO3 20 L (21-25) mmol/L ABG O2 Saturation 97.4 H (94-97) % Chloride 113 H (98-107) mmol/L Carbon Dioxide 20 L (22-30) mmol/L BUN 57 H (9-20) mg/dL Creatinine 4.35 H (0.66-1.25) mg/dL Glucose 192 H (74-99) mg/dL POC Glucose (mg/dL) (75-99) mg/dL Calcium 7.0 L (8.4-10.2) mg/dL Phosphorus 5.9 H (2.5-4.5) mg/dL ALT 17 L (21-72) U/L Total Protein 4.7 L (6.3-8.2) g/dL Albumin 2.1 L (3.5-5.0) g/dL 01/21/19 Range/Units 06:02 WBC (3.8-10.6) k/uL RBC (4.30-5.90) m/uL Hgb (13.0-17.5) gm/dL Hct (39.0-53.0) % Neutrophils # (1.3-7.7) k/uL Lymphocytes # (1.0-4.8) k/uL ABG pH (7.35-7.45) ABG HCO3 (21-25) mmol/L ABG O2 Saturation (94-97) % Chloride (98-107) mmol/L Carbon Dioxide (22-30) mmol/L BUN (9-20) mg/dL Creatinine (0.66-1.25) mg/dL Glucose (74-99) mg/dL POC Glucose (mg/dL) 186 H (75-99) mg/dL Calcium (8.4-10.2) mg/dL Phosphorus (2.5-4.5) mg/dL ALT (21-72) U/L Total Protein (6.3-8.2) g/dL Albumin (3.5-5.0) g/dL Microbiology - Last 24 Hours (Table) 01/15/19 20:20 Blood Culture - Preliminary Blood No Growth after 120 hours 01/19/19 14:20 Blood Culture - Preliminary Blood No Growth after 24 hours 01/17/19 09:20 Gram Stain - Final Toe - Right Fifth Wound Culture - Final Morganella morganii Enterococcus avium Beta Hemolytic Streptococcus F 01/17/19 09:20 Anaerobic Culture - Final Toe - Right Fifth Anaerobic Gm Negative Bacilli Anaerobic Gm Negative Bacilli#2 01/18/19 15:47 Gram Stain - Final Sputum Sputum Culture - Final Ирина albicans Assessment and Plan Assessment: Status post right foot fourth and fifth toe amputation Acute kidney failure wet gangrene right fifth toe uncontrolled type 2 diabetes previous amputation for infected gangrene toe on the left foot hyperlipidemia hypertension previous CT Plan: Patient currently remains intubated and sedated in the ICU. There is no signs of wet gangrene. Continue supportive care. Will continue to re-evaluate for possible limb salvage versus below the knee amputation. The above dictated assessment and findings were discussed with Dr. Bustillos. The impression and plan of care have been directed as dictated. <Toshia Bustillos - Last Filed: 01/21/19 12:33> Objective - Vital Signs Vital signs: Vital Signs Temp 99.6 F 01/21/19 08:00 Pulse 72 01/21/19 11:00 Resp 23 01/21/19 11:00 BP 135/66 01/21/19 11:00 Pulse Ox 96 01/21/19 11:00 Intake & Output 01/20/19 01/21/19 01/21/19 18:59 06:59 18:59 Intake Total 6431.293 7170.442 549.73 Output Total 850 915 390 Balance 663.932 369.442 159.73 Weight 124.4 kg Intake: IV 900 650 300 Piperacillin-Tazobactam 3 100 100 50 .375 gm In Sodium Chloride 0.9% 100 ml @ 25 mls/hr IVPB Q12H [place] Rx# :[id number] Sodium Chloride 0.9% 1, 800 550 250 000 ml @ 50 mls/hr IV . Q20H [place] Rx#:[id number] Intake, IV Titration 253.932 169.442 174.73 Amount Propofol 1,000 mg In 253.932 169.442 174.73 Empty Bag 1 bag @ Titrate IV .Q0M [place] Rx#: [id number] Tube Feeding 300 375 75 Other 60 90 Output: Urine 850 915 390 Other: Voiding Method Indwelling Catheter Indwelling Catheter Indwelling Catheter # Bowel Movements 1 ABP, PAP, CO, CI - Last Documented Arterial Blood Pressure 148/55 - Labs CBC & Chem 7: 01/21/19 04:10 01/21/19 04:10 Labs: Abnormal Lab Results - Last 24 Hours (Table) 01/20/19 01/20/19 01/21/19 Range/Units 17:39 23:52 04:06 WBC (3.8-10.6) k/uL RBC (4.30-5.90) m/uL Hgb (13.0-17.5) gm/dL Hct (39.0-53.0) % Neutrophils # (1.3-7.7) k/uL Lymphocytes # (1.0-4.8) k/uL ABG pH 7.33 L (7.35-7.45) ABG HCO3 20 L (21-25) mmol/L ABG O2 Saturation 97.4 H (94-97) % Chloride (98-107) mmol/L Carbon Dioxide (22-30) mmol/L BUN (9-20) mg/dL Creatinine (0.66-1.25) mg/dL Glucose (74-99) mg/dL POC Glucose (mg/dL) 192 H 198 H (75-99) mg/dL Calcium (8.4-10.2) mg/dL Phosphorus (2.5-4.5) mg/dL ALT (21-72) U/L Total Protein (6.3-8.2) g/dL Albumin (3.5-5.0) g/dL 01/21/19 01/21/19 01/21/19 Range/Units 04:10 04:10 06:02 WBC 14.1 H (3.8-10.6) k/uL RBC 3.52 L (4.30-5.90) m/uL Hgb 10.7 L (13.0-17.5) gm/dL Hct 32.3 L (39.0-53.0) % Neutrophils # 12.2 H (1.3-7.7) k/uL Lymphocytes # 0.9 L (1.0-4.8) k/uL ABG pH (7.35-7.45) ABG HCO3 (21-25) mmol/L ABG O2 Saturation (94-97) % Chloride 113 H (98-107) mmol/L Carbon Dioxide 20 L (22-30) mmol/L BUN 57 H (9-20) mg/dL Creatinine 4.35 H (0.66-1.25) mg/dL Glucose 192 H (74-99) mg/dL POC Glucose (mg/dL) 186 H (75-99) mg/dL Calcium 7.0 L (8.4-10.2) mg/dL Phosphorus 5.9 H (2.5-4.5) mg/dL ALT 17 L (21-72) U/L Total Protein 4.7 L (6.3-8.2) g/dL Albumin 2.1 L (3.5-5.0) g/dL 01/21/19 Range/Units 12:01 WBC (3.8-10.6) k/uL RBC (4.30-5.90) m/uL Hgb (13.0-17.5) gm/dL Hct (39.0-53.0) % Neutrophils # (1.3-7.7) k/uL Lymphocytes # (1.0-4.8) k/uL ABG pH (7.35-7.45) ABG HCO3 (21-25) mmol/L ABG O2 Saturation (94-97) % Chloride (98-107) mmol/L Carbon Dioxide (22-30) mmol/L BUN (9-20) mg/dL Creatinine (0.66-1.25) mg/dL Glucose (74-99) mg/dL POC Glucose (mg/dL) 184 H (75-99) mg/dL Calcium (8.4-10.2) mg/dL Phosphorus (2.5-4.5) mg/dL ALT (21-72) U/L Total Protein (6.3-8.2) g/dL Albumin (3.5-5.0) g/dL Microbiology - Last 24 Hours (Table) 01/17/19 09:20 Anaerobic Culture - Final Toe - Right Fifth Anaerobic Gm Negative Bacilli Anaerobic Gm Negative Bacilli#2 Anaerobic Gm Negative Bacilli#3 Anaerobic Gm Negative Bacilli#4 01/15/19 20:20 Blood Culture - Preliminary Blood No Growth after 120 hours 01/19/19 14:20 Blood Culture - Preliminary Blood No Growth after 24 hours 01/17/19 09:20 Gram Stain - Final Toe - Right Fifth Wound Culture - Final Morganella morganii Enterococcus avium Beta Hemolytic Streptococcus F 01/18/19 15:47 Gram Stain - Final Sputum Sputum Culture - Final Ирина albicans Assessment and Plan Plan: Patient seen and examined with the nurse practitioner. Discussed with nursing staff. Overall somewhat improved. Leukocytosis is improving, patient remains afebrile. No signs of wet gangrene or purulent drainage from the right foot wound. Patient's brothers were at his bedside. The care was discussed with them. Patient also had possible aspiration last night with malpositioned OG tube, some right lower infiltrates noted on the morning x-ray although essentially unchanged overall, repeat next x-ray tomorrow morning. At this time again the continued conversation is limb salvage versus below-knee amputation. No clear delineation for emergent plans of change at this point . Will continue to monitor with conservative care. We will decide in the next 24 hours if he shows no significant signs of improvement that he may need a below-knee amputation. Again at this time does not appear emergent therefore would not jackson
[2019-01-21 12:03] LABS: Glucose,Whole Blood 184 mg/dL (75-99)
--- NOTE | 2019-01-21 13:23 | P.PN ---
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, poor compliance, dyslipidemia, dehydration 01/21/2019, patient seen and evaluated examined during the rounds labs reviewed medications reviewed, patient the remains on sedation with propofol mildly sedated he does wake up follow simple commands and munira -1-2, he remains on IV fluids gently being rehydrated 50 mL an hour to feed is being given this morning patient noted to have a tube coiling in the mouth as He is to have pulled out late morning hours, the need to be has been placed position has been confirmed chest x-ray continued to show for evidence of fluid overload and this should edema along with possible infiltrate, he remains on assist control rate of 18 and tidal volume of 505 of PEEP and oxygen is 50% he is +1.2 L since morning, care plan discussed with nephrology as well as the vascular surgery, as his BUN and creatinine continued to go up creatinine is 5.1 in spite of good adequate urine output, patient continue on broad-spectrum antibiotic when setting remains stable respiratory secretions are still thick tenacious and appears to be improving slowly, blood cultures and sputum culture has been negative, need to make eyes and nose on the negative side as well as would like to see been function improving before consideration of weaning that anticipate will take another 24-48 hours 01/20/2019, patient seen eval examined during the rounds and labs reviewed medications reviewed critical care time spent 35 minutes, patient remains on assist control rate 18 and tidal volume of 500 along with PEEP of 5, patient is sedated with propofol drip but doesn't respond to simple stimuli, patient has been making good amount of urine levo fed is not require S patient is hemodynamically stable urine output has improved to 50-60 mL an hour post Lasix which is advised by nephrology service urine output has improved, patient has been tolerating tube feed well given that volume overload situation due to hypotension and was given fluid for resuscitation patient gently being diuresed, she he remains on broad-spectrum antibiotic sliding scale insulin labs reviewed medications reviewed care plan discussed with the staff and 2 brothers at bedside at length, chest x-ray from today reviewed bilateral atelectasis and fluid overload is present overall suggestive of more of his CHF and pneumonia, white cell count is stable, arterial blood gases improved, BUN/creatinine continue to go up 56 and 4.17, sugars have been stabilized 01/19/2019, patient seen and evaluated examined in the ICU intubated on full ventilator support, patient had gradual loss of consciousness has been more lethargic arterial blood gases were checked shows hypercapnic and hypoxic respiratory failure was intubated in the ICU, patient has been placed on propofol he was volume depleted depleted aggressive fluid resuscitation were performed, is still require levo fed intermittently, patient was also noted to be hypoglycemic 7030 insulin and other oral hypoglycemic agents were discontinued, ultrasound of the abdomen has been performed which is reviewed no obvious hydronephrosis seen, patient has decreased urine output along with ris ing BUN/creatinine appeared to be acute tubular necrosis, patient also requiring intermittent bolus of D10 for hypoglycemia, wounds has been evaluated by vascular surgery noted recommendation, patient has very poor venous access, will put a central line in, critical care time 45 minutes during procedure, due to altered mental status CT of the head was performed which was negative 01/18/2019, patient seen eval examined while covering for Dr. Granger, waking up this morning slightly slow to respond but not confused, breathing comfortably denies any chest pain labs reviewed today patient has been evaluated by Dr. Bassett, white cell count is coming down to 19,000, lactic acid level is normalized, patient has been on broad-spectrum antibiotics with vascular surgery on board Objective - Vital Signs Vital signs: Vital Signs Temp 99.6 F 01/21/19 08:00 Pulse 69 01/21/19 13:00 Resp 20 01/21/19 13:00 BP 129/56 01/21/19 13:00 Pulse Ox 96 01/21/19 13:00 Intake & Output 01/20/19 01/21/19 01/21/19 18:59 06:59 18:59 Intake Total 3713.438 7706.442 779.73 Output Total 850 915 475 Balance 663.932 369.442 304.73 Weight 124.4 kg Intake: IV 900 650 400 Piperacillin-Tazobactam 3 100 100 50 .375 gm In Sodium Chloride 0.9% 100 ml @ 25 mls/hr IVPB Q12H [facility] Rx# :[id number] Sodium Chloride 0.9% 1, 800 550 350 000 ml @ 20 mls/hr IV . Q24H [facility] Rx#:[id number] Intake, IV Titration 253.932 169.442 174.73 Amount Propofol 1,000 mg In 253.932 169.442 174.73 Empty Bag 1 bag @ Titrate IV .Q0M [facility] Rx#: [id number] Tube Feeding 300 375 175 Other 60 90 30 Output: Urine 850 915 475 Other: Voiding Method Indwelling Catheter Indwelling Catheter Indwelling Catheter # Bowel Movements 1 ABP, PAP, CO, CI - Last Documented Arterial Blood Pressure 124/44 - Exam Intubated on full vent support on propofol getting IV fluids normal saline due to hypotension one more fluid bolus being given In general patient is alert and oriented 3 while propofol was stopped s HEENT head normocephalic and atraumatic Neck is supple no JVD no goiter no lymphadenopathy Chest exam reveals a few scattered rhonchi no wheezing Cardiac exam reveals regular heart sounds S1 and S2 no gallops no murmurs Abdomen is soft nontender no organomegaly with normal bowel sounds Extremity exam reveals minimal edema there is blackish discoloration of the right fifth toe with surrounding erythema involving the distal part of the right foot Neuro no gross focal neurological deficit, patient has anisocoria - Labs CBC & Chem 7: 01/21/19 04:10 01/21/19 04:10 Labs: Abnormal Lab Results - Last 24 Hours (Table) 01/20/19 01/20/19 01/21/19 Range/Units 17:39 23:52 04:06 WBC (3.8-10.6) k/uL RBC (4.30-5.90) m/uL Hgb (13.0-17.5) gm/dL Hct (39.0-53.0) % Neutrophils # (1.3-7.7) k/uL Lymphocytes # (1.0-4.8) k/uL ABG pH 7.33 L (7.35-7.45) ABG HCO3 20 L (21-25) mmol/L ABG O2 Saturation 97.4 H (94-97) % Chloride (98-107) mmol/L Carbon Dioxide (22-30) mmol/L BUN (9-20) mg/dL Creatinine (0.66-1.25) mg/dL Glucose (74-99) mg/dL POC Glucose (mg/dL) 192 H 198 H (75-99) mg/dL Calcium (8.4-10.2) mg/dL Phosphorus (2.5-4.5) mg/dL ALT (21-72) U/L Total Protein (6.3-8.2) g/dL Albumin (3.5-5.0) g/dL 01/21/19 01/21/19 01/21/19 Range/Units 04:10 04:10 06:02 WBC 14.1 H (3.8-10.6) k/uL RBC 3.52 L (4.30-5.90) m/uL Hgb 10.7 L (13.0-17.5) gm/dL Hct 32.3 L (39.0-53.0) % Neutrophils # 12.2 H (1.3-7.7) k/uL Lymphocytes # 0.9 L (1.0-4.8) k/uL ABG pH (7.35-7.45) ABG HCO3 (21-25) mmol/L ABG O2 Saturation (94-97) % Chloride 113 H (98-107) mmol/L Carbon Dioxide 20 L (22-30) mmol/L BUN 57 H (9-20) mg/dL Creatinine 4.35 H (0.66-1.25) mg/dL Glucose 192 H (74-99) mg/dL POC Glucose (mg/dL) 186 H (75-99) mg/dL Calcium 7.0 L (8.4-10.2) mg/dL Phosphorus 5.9 H (2.5-4.5) mg/dL ALT 17 L (21-72) U/L Total Protein 4.7 L (6.3-8.2) g/dL Albumin 2.1 L (3.5-5.0) g/dL 01/21/19 Range/Units 12:01 WBC (3.8-10.6) k/uL RBC (4.30-5.90) m/uL Hgb (13.0-17.5) gm/dL Hct (39.0-53.0) % Neutrophils # (1.3-7.7) k/uL Lymphocytes # (1.0-4.8) k/uL ABG pH (7.35-7.45) ABG HCO3 (21-25) mmol/L ABG O2 Saturation (94-97) % Chloride (98-107) mmol/L Carbon Dioxide (22-30) mmol/L BUN (9-20) mg/dL Creatinine (0.66-1.25) mg/dL Glucose (74-99) mg/dL POC Glucose (mg/dL) 184 H (75-99) mg/dL Calcium (8.4-10.2) mg/dL Phosphorus (2.5-4.5) mg/dL ALT (21-72) U/L Total Protein (6.3-8.2) g/dL Albumin (3.5-5.0) g/dL Microbiology - Last 24 Hours (Table) 01/17/19 09:20 Anaerobic Culture - Final Toe - Right Fifth Anaerobic Gm Negative Bacilli Anaerobic Gm Negative Bacilli#2 Anaerobic Gm Negative Bacilli#3 Anaerobic Gm Negative Bacilli#4 01/15/19 20:20 Blood Culture - Preliminary Blood No Growth after 120 hours 01/19/19 14:20 Blood Culture - Preliminary Blood No Growth after 24 hours 01/17/19 09:20 Gram Stain - Final Toe - Right Fifth Wound Culture - Final Morganella morganii Enterococcus avium Beta Hemolytic Streptococcus F 01/18/19 15:47 Gram Stain - Final Sputum Sputum Culture - Final Ирина albicans Assessment and Plan Assessment: Altered mental status Hypoxic and hypercapnic respiratory failure Acute on chronic renal failure Bilateral atelectasis and possible aspiration pneumonia Fluid overload and acute interstitial edema Severe hypoglycemia 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 Surrounding cellulitis of right foot Sepsis and septic shock Insulin-dependent diabetes mellitus poorly controlled Hypertension hypertensive cardiovascular disease Dyslipidemia Plan: Cobos cultures, follow-up on culture results and report, continue antibiotic Continue vent support ventilated been adjusted Monitor renal functions closely once patient is negative and renal function improving we will initiate the weaning process Patient observation monitored off of propofol does follow simple commands Will observe and monitor anisocoria Renal consultation and recommendations reviewed Continue gentle diuresis Broad-spectrum antibiotics Critical care time 35 minutes excluding procedure Time with Patient: Greater than 30
--- NOTE | 2019-01-21 15:34 | P.HPIM ---
History of Present Illness H&P Date: 01/16/19 Chief Complaint: right foot pain Progress note from 01/16/2019 charted in error. This is the H & P for 01/16/2019 Right foot pain Refugio Saenz, is a 68-year-old male who presented to [facility] emergency room with pain in the right foot, he was evaluated in emergency room and had blackish discoloration of the right fifth toe with surrounding erythema and tenderness, patient was started on IV antibiotics Zosyn, vancomycin, and clindamycin, he was admitted to medical floor vascular surgery consultation was requested for possible amputation due to evidence of gangrene. Infectious disease consultation was requested. Patient has a known history of insulin-dependent diabetes mellitus, his glucose level was well controlled up until September of this year his A1c in June was 7.1 and in September was 7.3 however apparently patient stopped taking his insulin and his medications and his A1c was up to 9.8 in November, he has a known history of right foot ulcer he was admitted to the hospital with right foot cellulitis and ulcer in 2014 and he was followed at the wound care clinic in 2015 however he was doing well up until recently. Patient also has a known history of hypertension, hyperlipidemia, he denies any history of coronary artery disease or congestive heart failure, he had an echocardiogram done in 2014 at that time he had normal left ventricular function was normal ejection fraction, no significant valvular disease and no pulmonary hypertension. 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 Review of Systems otherwise unremarkable, please refer to HPI Past Medical History Past Medical History: Diabetes Mellitus, Hyperlipidemia, Hypertension, Myocardial Infarction (SC), Osteoarthritis (OA) Additional Past Medical History / Comment(s): SILENT SC-UNK DATE, NEUROPATHY/FEET,RLS, BROKEN LT ELBOW AND RT ANKLE HAD SX ON BOTH HAS SCREWS IN PLACE, PREVIOUS DIABETIC ULCERS. Wounds Right foot. Last Myocardial Infarction Date:: UNK History of Any Multi-Drug Resistant Organisms: MRSA Date of last positivie culture/infection: 02-04-2015 MDRO Source:: MRSA- right foot wound Past Surgical History: Heart Catheterization Additional Past Surgical History / Comment(s): LT MIDDLE TOE AMPUTION, ORIF LT ELBOW, RT ANKLE HAS SCREWS IN PLACE, PICC LINE LT ARM SINCE REMOVED. Right foot incision and drainage Past Anesthesia/Blood Transfusion Reactions: No Reported Reaction Past Psychological History: No Psychological Hx Reported Additional Psychological History / Comment(s): Single. Retired. No experience. no animals in the home. Not a current tobacco smoker Smoking Status: Never smoker Past Alcohol Use History: None Reported Past Drug Use History: None Reported - Past Family History Mother Family Medical History: Diabetes Mellitus Additional Family Medical History / Comment(s): CARDIAC PROBLEMS AT AGE 63 Father History Unknown: Yes Additional Family Medical History / Comment(s): father of mrsa in hip post sx 2017 age 91. Medications and Allergies Home Medications Medication Instructions Recorded Confirmed Type HYDROcodone/APAP 10-325MG [Corinth 1 tab PO TID PRN 02/03/15 01/15/19 History 10-325] glipiZIDE [Glucotrol] 10 mg PO DAILY 02/03/15 01/15/19 History Insuln Asp Prt/Insulin Aspart 35 unit SQ AC-BRKFST 03/22/16 01/15/19 History [NovoLOG MIX 70-30 VIAL] Brimonidine Tartrate [Alphagan P 1 drops LEFT EYE TID 08/08/18 01/15/19 History 0.2% Ophth Soln] Dorzolamide 2% [Trusopt 2%] 1 drops LEFT EYE TID 08/08/18 01/15/19 History FLUoxetine HCL [PROzac] 20 mg PO DAILY 08/08/18 01/15/19 History Insuln Asp Prt/Insulin Aspart 20 unit SQ HS 08/08/18 01/15/19 History [NovoLOG MIX 70-30 VIAL] Latanoprost/Pf [Latanoprost 0.005% 1 drop LEFT EYE HS 08/08/18 01/15/19 History Eye Drop] Lisinopril 40 mg PO DAILY 08/08/18 01/15/19 History Timolol 0.5% Ophth Soln [Timoptic 1 drop LEFT EYE BID 08/08/18 01/15/19 History 0.5% Ophth Soln] metFORMIN HCL [Glucophage] 500 mg PO BID 08/08/18 01/15/19 History Gabapentin [Neurontin] 100 mg PO HS 01/15/19 01/20/19 History Insulin Aspart [NovoLOG] 8 units SQ AC-SUPPER 01/15/19 01/15/19 History rOPINIRole HCL [Requip] 2 mg PO HS 01/15/19 01/15/19 History Atorvastatin [Lipitor] 40 mg PO HS 01/20/19 01/20/19 History Pioglitazone [Actos] 30 mg PO DAILY 01/20/19 01/20/19 History amLODIPine BESYLATE 5 mg PO DIRECTED 01/20/19 01/20/19 History Allergies Allergy/AdvReac Type Severity Reaction Status Date / Time No Known Allergies Allergy Verified 01/15/19 21:52 Physical Exam Vitals: Vital Signs Temp Pulse Resp BP Pulse Ox 01/21/19 15:00 72 21 127/59 96 01/21/19 14:00 68 19 119/56 96 01/21/19 13:00 69 20 129/56 96 01/21/19 12:00 70 20 133/66 96 01/21/19 11:00 72 23 135/66 96 01/21/19 10:00 72 19 127/62 96 01/21/19 09:00 71 20 133/64 96 01/21/19 08:00 99.6 F 75 23 136/61 95 01/21/19 07:00 72 21 102/51 96 01/21/19 06:00 64 18 137/59 96 01/21/19 05:00 73 21 109/52 96 01/21/19 04:00 99 F 60 20 107/51 96 01/21/19 03:00 62 18 141/63 96 01/21/19 02:00 71 20 135/58 97 01/21/19 01:00 72 22 136/60 96 01/21/19 00:00 99.4 F 72 22 139/67 96 01/20/19 23:19 71 21 132/61 96 01/20/19 23:00 68 24 130/63 96 01/20/19 22:00 72 21 133/65 96 01/20/19 21:00 71 20 130/62 96 01/20/19 20:00 99 F 70 22 128/62 96 01/20/19 19:00 72 18 130/61 97 01/20/19 18:00 71 18 102/53 97 01/20/19 17:00 62 18 98/51 96 01/20/19 16:00 98.5 F 71 18 125/59 96 Intake and Output 01/21/19 01/21/19 01/21/19 06:59 14:59 22:59 Intake Total 779.442 824.73 25 Output Total 560 520 Balance 219.442 304.73 25 Intake: IV 400 420 Piperacillin-Tazobactam 3 50 .375 gm In Sodium Chloride 0.9% 100 ml @ 25 mls/hr IVPB Q12H [facility] Rx# :[id number] Sodium Chloride 0.9% 1, 400 370 000 ml @ 20 mls/hr IV . Q24H [facility] Rx#:[id number] Intake, IV Titration 69.442 174.73 Amount Propofol 1,000 mg In 69.442 174.73 Empty Bag 1 bag @ Titrate IV .Q0M [facility] Rx#: [id number] Tube Feeding 250 200 25 Other 60 30 Output: Urine 560 520 Other: Voiding Method Indwelling Catheter Indwelling Catheter Weight 124.4 kg 124.4 kg ABP, PAP, CO, CI - Last 8 Hours Arterial Blood Pressure 145/54 Arterial Blood Pressure 133/49 Arterial Blood Pressure 124/44 Arterial Blood Pressure 142/51 Arterial Blood Pressure 148/55 Arterial Blood Pressure 152/54 Arterial Blood Pressure 138/50 Arterial Blood Pressure 156/56 In general patient is alert and oriented 3 in no apparent distress HEENT head normocephalic and atraumatic Neck is supple no JVD no goiter no lymphadenopathy Chest exam reveals a few scattered rhonchi no wheezing Cardiac exam reveals regular heart sounds S1 and S2 no gallops no murmurs Abdomen is soft nontender no organomegaly with normal bowel sounds Extremity exam reveals minimal edema there is blackish discoloration of the right fifth toe with surrounding erythema involving the distal part of the right foot Neuro no gross focal neurological deficit Results CBC & Chem 7: 01/21/19 04:10 01/21/19 04:10 Labs: Abnormal Lab Results - Last 24 Hours (Table) 01/20/19 01/20/19 01/21/19 Range/Units 17:39 23:52 04:06 WBC (3.8-10.6) k/uL RBC (4.30-5.90) m/uL Hgb (13.0-17.5) gm/dL Hct (39.0-53.0) % Neutrophils # (1.3-7.7) k/uL Lymphocytes # (1.0-4.8) k/uL ABG pH 7.33 L (7.35-7.45) ABG HCO3 20 L (21-25) mmol/L ABG O2 Saturation 97.4 H (94-97) % Chloride (98-107) mmol/L Carbon Dioxide (22-30) mmol/L BUN (9-20) mg/dL Creatinine (0.66-1.25) mg/dL Glucose (74-99) mg/dL POC Glucose (mg/dL) 192 H 198 H (75-99) mg/dL Calcium (8.4-10.2) mg/dL Phosphorus (2.5-4.5) mg/dL ALT (21-72) U/L Total Protein (6.3-8.2) g/dL Albumin (3.5-5.0) g/dL 01/21/19 01/21/19 01/21/19 Range/Units 04:10 04:10 06:02 WBC 14.1 H (3.8-10.6) k/uL RBC 3.52 L (4.30-5.90) m/uL Hgb 10.7 L (13.0-17.5) gm/dL Hct 32.3 L (39.0-53.0) % Neutrophils # 12.2 H (1.3-7.7) k/uL Lymphocytes # 0.9 L (1.0-4.8) k/uL ABG pH (7.35-7.45) ABG HCO3 (21-25) mmol/L ABG O2 Saturation (94-97) % Chloride 113 H (98-107) mmol/L Carbon Dioxide 20 L (22-30) mmol/L BUN 57 H (9-20) mg/dL Creatinine 4.35 H (0.66-1.25) mg/dL Glucose 192 H (74-99) mg/dL POC Glucose (mg/dL) 186 H (75-99) mg/dL Calcium 7.0 L (8.4-10.2) mg/dL Phosphorus 5.9 H (2.5-4.5) mg/dL ALT 17 L (21-72) U/L Total Protein 4.7 L (6.3-8.2) g/dL Albumin 2.1 L (3.5-5.0) g/dL 01/21/19 Range/Units 12:01 WBC (3.8-10.6) k/uL RBC (4.30-5.90) m/uL Hgb (13.0-17.5) gm/dL Hct (39.0-53.0) % Neutrophils # (1.3-7.7) k/uL Lymphocytes # (1.0-4.8) k/uL ABG pH (7.35-7.45) ABG HCO3 (21-25) mmol/L ABG O2 Saturation (94-97) % Chloride (98-107) mmol/L Carbon Dioxide (22-30) mmol/L BUN (9-20) mg/dL Creatinine (0.66-1.25) mg/dL Glucose (74-99) mg/dL POC Glucose (mg/dL) 184 H (75-99) mg/dL Calcium (8.4-10.2) mg/dL Phosphorus (2.5-4.5) mg/dL ALT (21-72) U/L Total Protein (6.3-8.2) g/dL Albumin (3.5-5.0) g/dL Microbiology - Last 24 Hours (Table) 01/17/19 09:20 Anaerobic Culture - Final Toe - Right Fifth Anaerobic Gm Negative Bacilli Anaerobic Gm Negative Bacilli#2 Anaerobic Gm Negative Bacilli#3 Anaerobic Gm Negative Bacilli#4 01/15/19 20:20 Blood Culture - Preliminary Blood No Growth after 120 hours 01/19/19 14:20 Blood Culture - Preliminary Blood No Growth after 24 hours 01/17/19 09:20 Gram Stain - Final Toe - Right Fifth Wound Culture - Final Morganella morganii Enterococcus avium Beta Hemolytic Streptococcus F 01/18/19 15:47 Gram Stain - Final Sputum Sputum Culture - Final Ирина albicans Thrombosis Risk Factor Assmnt - Choose All That Apply Each Factor Represents 1 point: Obesity (BMI >25) Other Risk Factors: Yes Each Risk Factor Represents 2 Points: Age 61-74 years, Major surgery Other congenital or acquired thrombophilia - If yes, enter type in comment: No Thrombosis Risk Factor Assessment Total Risk Factor Score: 5 Thrombosis Risk Factor Assessment Level: High Risk Assessment and Plan Assessment: #1 gangrene involving the right fifth toe with surrounding cellulitis, patient was started on IV antibiotic in the emergency room including Zosyn and va ncomycin and clindamycin, at this time will discontinue clindamycin and continue with Zosyn and vancomycin, consultation for infectious disease was initiated. Patient was also evaluated by vascular surgery and plans are for right fifth toe amputation in a.m. tomorrow. #2 sepsis, as evidenced by fever, leukocytosis, and elevated lactic acid. #3 for preoperative evaluation, will obtain an EKG, echocardiogram, and chest x- ray, will consult cardiology for evaluation. #4 insulin-dependent diabetes mellitus, with poor control due to noncompliance last hemoglobin A1c was 9.8 at this time will resume glipizide, Januvia and metformin, and cover was insulin to sliding scale will adjust medications as needed #5 underlying history of hypertension, however when patient was given his home medications of lisinopril and Norvasc, blood pressure was down to 90/56. At this time will continue was lisinopril and hold Norvasc and monitor closely. #6 underlying history of diabetic complications of peripheral neuropathy and retinopathy. #7 poor compliance with medical management, patient had extensive counseling in the last year, his A1c was down to 7.1 in June however it was up to 9.8 again recently. #8 underlying history of hyperlipidemia maintained on atorvastatin continue. At this time patient is admitted to medical floor, home medications reviewed and reordered Chest x-ray echocardiogram and EKG were ordered Consultation was infectious disease and cardiology for surgical clearance was initiated Will follow closely
[2019-01-21 17:09] LABS: Glucose,Whole Blood 177 mg/dL (75-99)
--- NOTE | 2019-01-21 19:47 | PN ---
PROGRESS NOTE Patient is seen for followup for acute kidney injury, mainly ATN, currently nonoliguric. Renal function is slightly worse. Serum creatinine is up to 4.3 from 4.17. Patient remains on the vent. He is off of pressors. There are plans for possible BKA in the next few days. Patient is stable on the vent. On examination today when patient was seen this morning, blood pressure was 135/66, heart rate of 65 per minute. He is afebrile. EXAMINATION OF THE HEART: S1 and S2. EXAMINATION OF LUNGS: Decreased breath sounds at bases. ABDOMEN: Soft, non-tender. Distended. Examination of lower extremities shows edema 2+ bilaterally. Right foot is currently dressed. PODIATRY DOCTOR exam cannot be performed in detail. However, patient has been slightly responsive. He is maintained on light sedation and he has been responsive. Labs from today show hemoglobin 10.7, sodium 140, potassium 3.8, chloride 113, BUN 57, creatinine 4.35. ASSESSMENT: 1. Acute kidney injury, acute tubular necrosis, currently nonoliguric. Renal function worse from yesterday. However, patient has good urine output. He is off of pressors. No indication for hemodialysis today. Etiology for ATN is hypotension as well as vancomycin toxicity. 2. Right fourth and fifth toe wet gangrene, status post amputation. 3. Acute respiratory failure, hypoxic and hypercapnic, currently on the vent. 4. Volume overload, status post IV Lasix yesterday. PLAN: Continue current fluids at 50 mL/hour. Repeat labs in a.m. Patient's family has been talked to regarding possible need for renal replacement therapy if renal function continues to worsen. MMODL / IJN: [id number] /
--- NOTE | 2019-01-21 20:21 | P.PN ---
Subjective Progress Note Date: 01/21/19 60-year-old male who has multiple medical troubles that includes peripheral vascular disease, coronary artery disease and diabetes mellitus type 2. Is related the patient was doing relatively well this year which point in time he was to be compliant to his medication regimen. However he appears by the fall was having difficulties and stopped his insulin treatments. His blood glucoses increased greatly and his hemoglobin A1c went to nearly 10. The patient now presents to Hospital of evidence of gangrenous changes to his fourth and fifth toes of the right foot. 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 The patient is directly postoperative period he is modestly comfortable but still with some effects of anesthesia. He relates he was not having much pain at home and it was because the areas were worsening and blackening that he sought care. 01/20/2019 patient remains intubated sedated with mechanical ventilation, failed a weanig attempt due to tachypneia foot remains with drainage but is not bleeding. 01/21/2019 patient remains in intensive care unit intubated sedated and mechanically ventilated with no further progression for weaning. He is followed by nephrology he has some worsening renal failure there is not some contemplation for possible hemodialysis. Objective - Vital Signs Vital signs: Vital Signs Temp 99.0 F 01/21/19 16:00 Pulse 71 01/21/19 19:00 Resp 19 01/21/19 19:00 BP 123/61 01/21/19 18:00 Pulse Ox 95 01/21/19 19:00 Intake & Output 01/21/19 01/21/19 01/22/19 06:59 18:59 06:59 Intake Total 6549.578 8989.73 70 Output Total 915 735 235 Balance 369.442 519.73 -165 Weight 124.4 kg 124.4 kg Intake: IV 650 530 35 Piperacillin-Tazobactam 3 100 100 25 .375 gm In Sodium Chloride 0.9% 100 ml @ 25 mls/hr IVPB Q12H [place] Rx# :[id number] Sodium Chloride 0.9% 1, 550 430 10 000 ml @ 20 mls/hr IV . Q24H [place] Rx#:[id number] Intake, IV Titration 169.442 274.73 Amount Propofol 1,000 mg In 169.442 274.73 Empty Bag 1 bag @ Titrate IV .Q0M [facility] Rx#: [id number] Tube Feeding 375 390 35 Other 90 60 Output: Urine 915 735 35 Stool 200 Other: Voiding Method Indwelling Catheter Indwelling Catheter ABP, PAP, CO, CI - Last Documented Arterial Blood Pressure 148/51 - Exam The patient is intubated and mechanically ventilated seems comfortable HEENT: Anicteric conjunctiva are pink and moist nasal mucosa grossly intact without significant lesions, there is no thrush noted around the ET tube Neck: The neck is supple without significant lymphadenopathy or thyromegaly. Lungs: The symmetrical bilateral air entry reveal some basilar crackles Heart: Irregular soft S4 no murmur Abdomen: Obese, Positive bowel sounds soft and nontender without palpable masses or organomegaly. There was no guarding or rebound. Extremities: The upper extremities without acute lesions. The left foot has no acute open ulcerations. Right foot is with the postoperative dressing from the amputation which is a ray amputation from the fourth and fifth toes. The remains necrosis at the base of the amputation site with serous mildly malodorous drainage. The foot is cool but not frankly cold poor capillary refill. Neuro: The patient is sedated remains intubated and mechanically ventilated at [facility] today staff relates that he did have eye opening to name. - Labs CBC & Chem 7: 01/21/19 04:10 01/21/19 04:10 Labs: Abnormal Lab Results - Last 24 Hours (Table) 01/20/19 01/21/19 01/21/19 Range/Units 23:52 04:06 04:10 WBC (3.8-10.6) k/uL RBC (4.30-5.90) m/uL Hgb (13.0-17.5) gm/dL Hct (39.0-53.0) % Neutrophils # (1.3-7.7) k/uL Lymphocytes # (1.0-4.8) k/uL ABG pH 7.33 L (7.35-7.45) ABG HCO3 20 L (21-25) mmol/L ABG O2 Saturation 97.4 H (94-97) % Chloride 113 H (98-107) mmol/L Carbon Dioxide 20 L (22-30) mmol/L BUN 57 H (9-20) mg/dL Creatinine 4.35 H (0.66-1.25) mg/dL Glucose 192 H (74-99) mg/dL POC Glucose (mg/dL) 198 H (75-99) mg/dL Calcium 7.0 L (8.4-10.2) mg/dL Phosphorus 5.9 H (2.5-4.5) mg/dL ALT 17 L (21-72) U/L Total Protein 4.7 L (6.3-8.2) g/dL Albumin 2.1 L (3.5-5.0) g/dL 01/21/19 01/21/19 01/21/19 Range/Units 04:10 06:02 12:01 WBC 14.1 H (3.8-10.6) k/uL RBC 3.52 L (4.30-5.90) m/uL Hgb 10.7 L (13.0-17.5) gm/dL Hct 32.3 L (39.0-53.0) % Neutrophils # 12.2 H (1.3-7.7) k/uL Lymphocytes # 0.9 L (1.0-4.8) k/uL ABG pH (7.35-7.45) ABG HCO3 (21-25) mmol/L ABG O2 Saturation (94-97) % Chloride (98-107) mmol/L Carbon Dioxide (22-30) mmol/L BUN (9-20) mg/dL Creatinine (0.66-1.25) mg/dL Glucose (74-99) mg/dL POC Glucose (mg/dL) 186 H 184 H (75-99) mg/dL Calcium (8.4-10.2) mg/dL Phosphorus (2.5-4.5) mg/dL ALT (21-72) U/L Total Protein (6.3-8.2) g/dL Albumin (3.5-5.0) g/dL 01/21/19 Range/Units 17:08 WBC (3.8-10.6) k/uL RBC (4.30-5.90) m/uL Hgb (13.0-17.5) gm/dL Hct (39.0-53.0) % Neutrophils # (1.3-7.7) k/uL Lymphocytes # (1.0-4.8) k/uL ABG pH (7.35-7.45) ABG HCO3 (21-25) mmol/L ABG O2 Saturation (94-97) % Chloride (98-107) mmol/L Carbon Dioxide (22-30) mmol/L BUN (9-20) mg/dL Creatinine (0.66-1.25) mg/dL Glucose (74-99) mg/dL POC Glucose (mg/dL) 177 H (75-99) mg/dL Calcium (8.4-10.2) mg/dL Phosphorus (2.5-4.5) mg/dL ALT (21-72) U/L Total Protein (6.3-8.2) g/dL Albumin (3.5-5.0) g/dL Microbiology - Last 24 Hours (Table) 01/19/19 14:20 Blood Culture - Preliminary Blood No Growth after 48 hours 01/17/19 09:20 Anaerobic Culture - Final Toe - Right Fifth Anaerobic Gm Negative Bacilli Anaerobic Gm Negative Bacilli#2 Anaerobic Gm Negative Bacilli#3 Anaerobic Gm Negative Bacilli#4 01/15/19 20:20 Blood Culture - Preliminary Blood No Growth after 120 hours 01/17/19 09:20 Gram Stain - Final Toe - Right Fifth Wound Culture - Final Morganella morganii Enterococcus avium Beta Hemolytic Streptococcus F Laboratory Results WBC 14.1 k/uL (3.8-10.6) H 01/21/19 04:10 RBC 3.52 m/uL (4.30-5.90) L 01/21/19 04:10 Hgb 10.7 gm/dL (13.0-17.5) L 01/21/19 04:10 Hct 32.3 % (39.0-53.0) L 01/21/19 04:10 MCV 91.9 fL (80.0-100.0) 01/21/19 04:10 MCH 30.3 pg (25.0-35.0) 01/21/19 04:10 MCHC 33.0 g/dL (31.0-37.0) 01/21/19 04:10 RDW 12.3 % (11.5-15.5) 01/21/19 04:10 Plt Count 202 k/uL (150-450) 01/21/19 04:10 Neutrophils % 86 % 01/21/19 04:10 Lymphocytes % 6 % 01/21/19 04:10 Monocytes % 4 % 01/21/19 04:10 Eosinophils % 3 % 01/21/19 04:10 Basophils % 0 % 01/21/19 04:10 Neutrophils # 12.2 k/uL (1.3-7.7) H 01/21/19 04:10 Lymphocytes # 0.9 k/uL (1.0-4.8) L 01/21/19 04:10 Monocytes # 0.5 k/uL (0-1.0) 01/21/19 04:10 Eosinophils # 0.4 k/uL (0-0.7) 01/21/19 04:10 Basophils # 0.1 k/uL (0-0.2) 01/21/19 04:10 Hypochromasia Slight 01/21/19 04:10 Sample Site edwina 01/21/19 04:06 ABG pH 7.33 (7.35-7.45) L 01/21/19 04:06 ABG pCO2 38 mmHg (35-45) 01/21/19 04:06 ABG pO2 97 mmHg (83-108) 01/21/19 04:06 ABG HCO3 20 mmol/L (21-25) L 01/21/19 04:06 ABG Total CO2 21 mmol/L (19-24) 01/21/19 04:06 ABG O2 Saturation 97.4 % (94-97) H 01/21/19 04:06 ABG Base Excess -6.0 mmol/L 01/21/19 04:06 Jd Test no 01/21/19 04:06 ABG Lactic Acid 0.7 mmol/L (0.5-1.6) 01/19/19 04:15 FiO2 50 % 01/21/19 04:06 Sodium 140 mmol/L (137-145) 01/21/19 04:10 Potassium 3.8 mmol/L (3.5-5.1) 01/21/19 04:10 Chloride 113 mmol/L (98-107) H 01/21/19 04:10 Carbon Dioxide 20 mmol/L (22-30) L 01/21/19 04:10 Anion Gap 7 mmol/L 01/21/19 04:10 BUN 57 mg/dL (9-20) H 01/21/19 04:10 Creatinine 4.35 mg/dL (0.66-1.25) H 01/21/19 04:10 Est GFR (CKD-EPI)AfAm 15 (>60 ml/min/1.73 sqM) 01/21/19 04:10 Est GFR (CKD-EPI)NonAf 13 (>60 ml/min/1.73 sqM) 01/21/19 04:10 Glucose 192 mg/dL (74-99) H 01/21/19 04:10 POC Glucose (mg/dL) 177 mg/dL (75-99) H 01/21/19 17:08 POC Glu [employer] Faby Concepcion 01/21/19 17:08 Lactic Ac Sepsis Rflx Y 01/16/19 01:23 Plasma Lactic Acid Jose Carlos 1.4 mmol/L (0.7-2.0) 01/16/19 05:28 Calcium 7.0 mg/dL (8.4-10.2) L 01/21/19 04:10 Phosphorus 5.9 mg/dL (2.5-4.5) H 01/21/19 04:10 Magnesium 2.0 mg/dL (1.6-2.3) 01/21/19 04:10 Total Bilirubin 0.5 mg/dL (0.2-1.3) 01/21/19 04:10 AST 23 U/L (17-59) 01/21/19 04:10 ALT 17 U/L (21-72) L 01/21/19 04:10 Alkaline Phosphatase 71 U/L (38-126) 01/21/19 04:10 Total Protein 4.7 g/dL (6.3-8.2) L 01/21/19 04:10 Albumin 2.1 g/dL (3.5-5.0) L 01/21/19 04:10 Urine Color Yellow 01/18/19 17:04 Urine Appearance Cloudy (Clear) 01/18/19 17:04 Urine pH 5.0 (5.0-8.0) 01/18/19 17:04 Ur Specific Inez 1.018 (1.001-1.035) 01/18/19 17:04 Urine Protein 1+ (Negative) H 01/18/19 17:04 Urine Glucose (UA) 1+ (Negative) H 01/18/19 17:04 Urine Ketones Negative (Negative) 01/18/19 17:04 Urine Blood Negative (Negative) 01/18/19 17:04 Urine Nitrite Negative (Negative) 01/18/19 17:04 Urine Bilirubin Negative (Negative) 01/18/19 17:04 Urine Urobilinogen <2.0 mg/dL (<2.0) 01/18/19 17:04 Ur Leukocyte Esterase Negative (Negative) 01/18/19 17:04 Urine WBC 2 /hpf (0-5) 01/18/19 17:04 Amorphous Sediment Few /hpf (None) H 01/18/19 17:04 Random Vancomycin 27.0 ug/mL 01/20/19 05:15 C. difficile (EIA) Intrp Negative (Negative) 01/21/19 11:23 Microbiology 01/19/19 14:20 Blood Blood Culture - Preliminary No Growth after 48 hours 01/17/19 09:20 Toe - Right Fifth Anaerobic Culture - Final Anaerobic Gm Negative Bacilli Anaerobic Gm Negative Bacilli#2 Anaerobic Gm Negative Bacilli#3 Anaerobic Gm Negative Bacilli#4 01/15/19 20:20 Blood Blood Culture - Preliminary No Growth after 120 hours 01/17/19 09:20 Toe - Right Fifth Gram Stain - Final 01/17/19 09:20 Toe - Right Fifth Wound Culture - Final Morganella morganii Enterococcus avium Beta Hemolytic Streptococcus F 01/18/19 15:47 Sputum Gram Stain - Final 01/18/19 15:47 Sputum Sputum Culture - Final Ирина albicans Assessment and Plan (1) Gangrene Narrative/Plan: 68-year-old male with long-standing history of multiple medical troubles that includes diabetes mellitus type 2 presents to hospital with evidence of what appears to be gangrenous changes to the right foot fifth toe. Because interchanged and was apparently and with some drainage and odor he sought care. He has not been seen by the vascular surgeon is undergone the rehabilitation to toes 4 and 5. However appears to be other ulceration and he may require further more extensive surgical intervention the next 48 hours. Cultures are pending. Extensive antibiotic therapy with Zosyn and vancomycin is being utilized at this point in time for the diabetic foot ulceration until there is further data. Once surgical interventions are completed we'll then be able to determine a course of antibiotic therapy at discharge. Unclear if he can care for himself in the home setting. Depending on the findings he may be a good candidate for negative pressure therapy. He would be ideal candidate follow-up with the wound healing Center to determine if outpatient hyperbaric oxygen therapy could be utilized for limb salvage. 01/20/2019 the patient remains in intensive care unit intubated sedated and mechanically ventilated and did not progress well with the sedation holiday today and weaning trial. He is currently on vancomycin and Zosyn for the poly microbial infection that was found exam the surgical debridement. I have the pleasure of discussing the case with the vascular surgeon and patient has no improvement in the next day and continues to fail ventilation and has no further improvement within be a candidate for an amputation to try to allow improvement of his underlying status which greater than allow progression to extubation future. Antibiotic therapy continues with Zosyn with the polymicrobial infection found at the time of the debridement. 01/21/2019 the patient is having some worsening of his status and that his renal failure worsening and there is no contemplation of possible hemodialysis. The patient has progressive ongoing infection to the right foot and is on antibiotic therapy for the polymicrobial infection. Over the pleasure of discussing the case with the vascular surgeon and we'll reevaluate for potential inspissation the near future. The goal of amputation is to remove the source of infection which would possibly allow some improvement of his status. Antibiotic therapy continues with Zosyn at this time. Prognosis remains poor. Current Visit: Yes Status: Acute Code(s): I96 - GANGRENE, NOT ELSEWHERE CLASSIFIED SNOMED Code(s): 840701278 (2) Hyperglycemia Current Visit: Yes Status: Acute Code(s): R73.9 - HYPERGLYCEMIA, UNSPECIFIED SNOMED Code(s): 43707558 (3) Lower extremity cellulitis Current Visit: No Status: Acute Code(s): L03.119 - CELLULITIS OF UNSPECIFIED PART OF LIMB SNOMED Code(s): 687939781
[2019-01-21] MEDS: LATANOPROST 0.005% OPHTH DROPS 2.5 ML BTL LEFT EYE SCH (21:18)
[2019-01-21] MEDS ORDERED: FUROSEMIDE 10 MG/ML 10 ML VIAL IV STA (23:13)
[2019-01-21 23:22] LABS: Glucose,Whole Blood 189 mg/dL (75-99)
[2019-01-22] MEDS: PROPOFOL 1,000 MG in EMPTY BAG 1 BAG IV SCH ×4 (02:47→19:51)
[2019-01-22 03:55] LABS: ABG HCO3 19 mmol/L (21-25); ABG Oxygen Saturation 96.9 % (94-97); ABG PCO2 37 mmHg (35-45); ABG PH 7.32 (7.35-7.45); ABG PO2 95 mmHg (83-108); ABG TCO2 20 mmol/L (19-24)
[2019-01-22 04:17] LABS: Allen Test Performed? no
[2019-01-22 04:40] LABS: Basophils # (A) 0.1 k/uL (0-0.2); Basophils % (A) 1 %; Eosinophils # (A) 0.4 k/uL (0-0.7); Eosinophils % (A) 3 %; HCT 33.5 % (39.0-53.0); HGB 10.8 gm/dL (13.0-17.5); Hypochromasia Slight; Lymphocytes # (A) 0.7 k/uL (1.0-4.8); Lymphocytes % (A) 5 %; MCH 30.1 pg (25.0-35.0); MCHC 32.4 g/dL (31.0-37.0); Mean Platelet Volume 9.2; Monocytes # (A) 0.5 k/uL (0-1.0); Monocytes % (A) 3 %; Neutrophils # (A) 12.5 k/uL (1.3-7.7); Neutrophils % (A) 88 %; Platelet Count 232 k/uL (150-450); RDW 12.3 % (11.5-15.5); WBC 14.2 k/uL (3.8-10.6)
[2019-01-22 04:57] LABS: Albumin 2.2 g/dL (3.5-5.0); Calcium 7.4 mg/dL (8.4-10.2); Phosphorus 6.6 mg/dL (2.5-4.5); Potassium 4.2 mmol/L (3.5-5.1); Total Bilirubin 0.4 mg/dL (0.2-1.3)
[2019-01-22 05:02] LABS: Vancomycin,Random 20.6 ug/mL
[2019-01-22 06:10] LABS: Glucose,Whole Blood 236 mg/dL (75-99)
[2019-01-22] MEDS: INSULIN ASPART (NovoLOG) 100 UNIT/ML VIAL SQ SCH ×4 (06:52→23:58)
[2019-01-22] MEDS: SODIUM CHLORIDE 0.9% 1,000 ML IV SCH ×3 (06:52→16:50)
[2019-01-22] MEDS: PIPERACILLIN-TAZOBACTAM 3.375 GM in SODIUM CHLORIDE 0.9% 100 ML IVPB SCH ×2 (07:22→18:34)
--- NOTE | 2019-01-22 08:36 | XR ---
EXAMINATION TYPE: XR chest 1V portable DATE OF EXAM: 01/22/2019 COMPARISON: 01/21/2019 HISTORY: SOB, Follow Up FINDINGS: Indwelling tubes and catheters are unchanged. Increasing bilateral specific airspace infiltrates. Stable appearance of the cardio-mediastinal structures at this time. Pleural effusion unchanged. IMPRESSION: 1. Increasing bilateral specific airspace infiltrates.
--- NOTE | 2019-01-22 08:51 | P.ARTDOP ---
Arterial Doppler LOWER EXTREMITY ARTERIAL DOPPLER: DATE OF SERVICE: 01/16/2019 Reason for study: Gangrene right fifth toe. Doppler waveforms: Multiphasic to the popliteal bilaterally and atypical below. Monophasic at the digital level. Pulse volume recording: []. Pressure gradients: Mild gradients below the knee on the right and more significant gradients to the digital level.. Ankle-brachial indices: 0.79 on the right and rated and one on the left. Toe pressures: 24 on the right and 44 on the left Impression: Suspect infrapopliteal disease bilaterally. Probably moderate in degree. Clinical correlation recommended.
[2019-01-22] MEDS: NOREPINEPHRINE 4 MG in SODIUM CHLORIDE 0.9% 250 ML IV SCH ×2 (09:24→11:56)
[2019-01-22] MEDS: HEPARIN SODIUM,PORCINE 5,000 UNIT/ML 1 ML VIAL SQ SCH ×3 (09:47→23:57)
[2019-01-22] MEDS: CHLORHEXIDINE GLUCONATE 15 ML CUP MUCOUS MEM SCH ×2 (09:49→21:54)
[2019-01-22] MEDS: PANTOPRAZOLE 40 MG/10 ML VIAL IV SCH (09:49)
[2019-01-22] MEDS: GABAPENTIN 100 MG CAP PO SCH ×3 (09:49→21:53)
[2019-01-22] MEDS: BRIMONIDINE TARTRATE 0.2% DROPS 5 ML BTL LEFT EYE SCH ×3 (09:50→21:55)
[2019-01-22] MEDS: DORZOLAMIDE HCL 2% DROPS 10 ML BTL LEFT EYE SCH ×3 (09:50→21:54)
[2019-01-22] MEDS: TIMOLOL 0.5% OPHTH DROPS 5 ML BTL LEFT EYE SCH ×2 (09:50→21:54)
[2019-01-22] MEDS: FLUoxetine HCL 20 MG CAP PO SCH (09:50)
--- NOTE | 2019-01-22 10:32 | P.PN ---
Subjective Progress Note Date: 01/22/19 Refugio Saenz, is a 68-year-old male who presented to [facility] emergency room with pain in the right foot, he was evaluated in emergency room and had blackish discoloration of the right fifth toe with surrounding erythema and tenderness, patient was started on IV antibiotics Zosyn, vancomycin, and clindamycin, he was admitted to medical floor vascular surgery consultation was requested for possible amputation due to evidence of gangrene. Infectious disease consultation was requested. Patient has a known history of insulin-dependent diabetes mellitus, his glucose level was well controlled up until September of this year his A1c in June was 7.1 and in September was 7.3 however apparently patient stopped taking his insulin and his medications and his A1c was up to 9.8 in November, he has a known history of right foot ulcer he was admitted to the hospital with right foot cellulitis and ulcer in 2014 and he was followed at the wound care clinic in 2015 however he was doing well up until recently. Patient also has a known history of hypertension, hyperlipidemia, he denies any history of coronary artery disease or congestive heart failure, he had an echocardiogram done in 2014 at that time he had normal left ventricular function was normal ejection fraction, no significant valvular disease and no pulmonary hypertension. 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 On 01/17/2019 patient's alert and oriented 3. Patient had fourth and fifth toe amputation with Dr. Bustillos this morning. Patient having some low blood pressure will give 500 mL bolus. Patient denies chest pain or shortness of breath. Patient denies nausea vomiting or diarrhea. Patient is having some increased pain to foot area pain medications ordered 01/18/2019, patient seen eval examined while covering for Dr. Granger, waking up this morning slightly slow to respond but not confused, breathing comfortably denies any chest pain labs reviewed today patient has been evaluated by Dr. Bassett, white cell count is coming down to 19,000, lactic acid level is normalized, patient has been on broad-spectrum antibiotics with vascular surgery on board 01/19/2019, patient seen and evaluated examined in the ICU intubated on full ventilator support, patient had gradual loss of consciousness has been more lethargic arterial blood gases were checked shows hypercapnic and hypoxic respiratory failure was intubated in the ICU, patient has been placed on propo fol he was volume depleted depleted aggressive fluid resuscitation were performed, is still requiring levophed intermittently, patient was also noted to be hypoglycemic 7030 insulin and other oral hypoglycemic agents were discontinued, ultrasound of the abdomen has been performed which is reviewed no obvious hydronephrosis seen, patient has decreased urine output along with rising BUN/creatinine appeared to be acute tubular necrosis, patient also requiring intermittent bolus of D10 for hypoglycemia, wounds has been evaluated by vascular surgery noted recommendation, patient has very poor venous access, will put a central line in, critical care time 45 minutes during procedure, due to altered mental status CT of the head was performed which was negative On 01/20/2019 patient remains in the intensive care unit on mechanical ventilation. Levophed has been on hold blood pressures has sustained. Creatinine has increased to 4.17 and bun 56. Nephrology services are following. Per nursing staff patient does follow commands during sedation holiday ABGs have improved. Discussed case with vascular surgeon nurse practitioner possible BKA discussion. White blood cell decreasing to 16.0. Critical care services are following. Patient remains on Zosyn for IV antibiotics. Infectious disease following 01/21/2019 patient remains on mechanical ventilation on in the intensive care unit. Patient remains sedated, on propofol. However per nursing staff patient does follow commands during sedation holiday. Patient is on 50% FiO2, 5 PEEP, tidal volume 500. Levophed off since 01/20/20. Blood pressure remains in the 130's-150's systolic. Creatinine 4.35 from 4.17 and BUN 57 from 56, Calcium 7.0, phosphorus 5.9 Nephrology is following. Orogastric tube replaced this morning. Per nursing staff OG tube was coiled in patient's mouth with tube feeds running. Chest x-ray repeated, no significant change from previous. ABG improving, still metabolic acidosis. WBC of 14.1 down from 16. Afebrile. Infectious disease is following patient is maintained on Zosyn. Will send C. diff sample due to new onset diarrhea for 1 day. Hyperglycemia noted (glucose 200's). Will discuss tube feed formula with dietary. If no changes can be made will adjust sliding scale. On 01/22/2019 patient remains sedated on mechanical ventilation in the intensive care unit. Per nursing staff patient is to have a BKA today with Dr. Bustillos. Patient remains off pressors, blood pressure has been stable. Chest x-ray repeated this morning, per pulmonary. No significant change in ABGs. Creatinine continues to increase, 4.84 today BUN 60, patient is still making adequate urine output nephrology is following. Tube feeds on hold, for pending OR. WBC 14.2, temperature overnight 100F. Please is following patient is maintained on Zosyn. C. diff sample was negative. Objective - Vital Signs Vital signs: Vital Signs Temp 99.1 F 01/22/19 08:00 Pulse 63 01/22/19 09:00 Resp 18 01/22/19 09:00 BP 135/62 01/22/19 09:00 Pulse Ox 97 01/22/19 09:00 Intake & Output 01/21/19 01/22/19 01/22/19 18:59 06:59 18:59 Intake Total 1254.73 1290.082 209 Output Total 735 1135 735 Balance 519.73 155.082 -526 Weight 124.4 kg 123.8 kg Intake: IV 530 345 60 Piperacillin-Tazobactam 3 100 125 .375 gm In Sodium Chloride 0.9% 100 ml @ 25 mls/hr IVPB Q12H [place] Rx# :[id number] Sodium Chloride 0.9% 1, 430 220 60 000 ml @ 20 mls/hr IV . Q24H [place] Rx#:[id number] Intake, IV Titration 274.73 184.082 100 Amount Propofol 1,000 mg In 274.73 184.082 100 Empty Bag 1 bag @ Titrate IV .Q0M [place] Rx#: [id number] Tube Feeding 390 641 49 Other 60 120 0 Output: Urine 735 935 235 Stool 200 500 Other: Voiding Method Indwelling Catheter Indwelling Catheter ABP, PAP, CO, CI - Last Documented Arterial Blood Pressure 137/46 - Exam Patient sedated this morning. Full neuro exam unable to obtain HEENT head normocephalic and atraumatic Neck is supple no JVD no goiter no lymphadenopathy Chest exam reveals diminished lung sounds, a few scattered rhonchi no wheezing Cardiac exam reveals regular heart sounds S1 and S2 no gallops no murmurs Abdomen is obese, soft nontender no organomegaly with normal bowel sounds Extremity exam reveals surgical site with nonpurulent drainage, wound bed moist red and jiménez. Good capillary Refill of the right remaining toes Neuro no gross focal neurological deficit. - Labs CBC & Chem 7: 01/22/19 04:20 01/22/19 04:20 Labs: Abnormal Lab Results - Last 24 Hours (Table) 01/21/19 01/21/19 01/21/19 Range/Units 12:01 17:08 23:20 WBC (3.8-10.6) k/uL RBC (4.30-5.90) m/uL Hgb (13.0-17.5) gm/dL Hct (39.0-53.0) % Neutrophils # (1.3-7.7) k/uL Lymphocytes # (1.0-4.8) k/uL ABG pH (7.35-7.45) ABG HCO3 (21-25) mmol/L Chloride (98-107) mmol/L Carbon Dioxide (22-30) mmol/L BUN (9-20) mg/dL Creatinine (0.66-1.25) mg/dL Glucose (74-99) mg/dL POC Glucose (mg/dL) 184 H 177 H 189 H (75-99) mg/dL Calcium (8.4-10.2) mg/dL Phosphorus (2.5-4.5) mg/dL ALT (21-72) U/L Total Protein (6.3-8.2) g/dL Albumin (3.5-5.0) g/dL 01/22/19 01/22/19 01/22/19 Range/Units 03:49 04:20 04:20 WBC 14.2 H (3.8-10.6) k/uL RBC 3.60 L (4.30-5.90) m/uL Hgb 10.8 L (13.0-17.5) gm/dL Hct 33.5 L (39.0-53.0) % Neutrophils # 12.5 H (1.3-7.7) k/uL Lymphocytes # 0.7 L (1.0-4.8) k/uL ABG pH 7.32 L (7.35-7.45) ABG HCO3 19 L (21-25) mmol/L Chloride 113 H (98-107) mmol/L Carbon Dioxide 21 L (22-30) mmol/L BUN 60 H (9-20) mg/dL Creatinine 4.84 H (0.66-1.25) mg/dL Glucose 232 H (74-99) mg/dL POC Glucose (mg/dL) (75-99) mg/dL Calcium 7.4 L (8.4-10.2) mg/dL Phosphorus 6.6 H (2.5-4.5) mg/dL ALT 20 L (21-72) U/L Total Protein 5.0 L (6.3-8.2) g/dL Albumin 2.2 L (3.5-5.0) g/dL 01/22/19 Range/Units 06:09 WBC (3.8-10.6) k/uL RBC (4.30-5.90) m/uL Hgb (13.0-17.5) gm/dL Hct (39.0-53.0) % Neutrophils # (1.3-7.7) k/uL Lymphocytes # (1.0-4.8) k/uL ABG pH (7.35-7.45) ABG HCO3 (21-25) mmol/L Chloride (98-107) mmol/L Carbon Dioxide (22-30) mmol/L BUN (9-20) mg/dL Creatinine (0.66-1.25) mg/dL Glucose (74-99) mg/dL POC Glucose (mg/dL) 236 H (75-99) mg/dL Calcium (8.4-10.2) mg/dL Phosphorus (2.5-4.5) mg/dL ALT (21-72) U/L Total Protein (6.3-8.2) g/dL Albumin (3.5-5.0) g/dL Microbiology - Last 24 Hours (Table) 01/15/19 20:20 Blood Culture - Final Blood No Growth after 144 hours 01/19/19 14:20 Blood Culture - Preliminary Blood No Growth after 48 hours 01/17/19 09:20 Anaerobic Culture - Final Toe - Right Fifth Anaerobic Gm Negative Bacilli Anaerobic Gm Negative Bacilli#2 Anaerobic Gm Negative Bacilli#3 Anaerobic Gm Negative Bacilli#4 Assessment and Plan Assessment: #1 gangrene involving the right fifth toe with surrounding cellulitis, patient was started on IV antibiotic in the emergency room including Zosyn and vancomycin and clindamycin, at this time will discontinue clindamycin and continue with Zosyn and vancomycin, consultation for infectious disease was initiated. Status post amputation of fourth and fifth toe with Dr. Bustillos. Patient is currently postop day 4. Possible discussion of below knee amputation rather than attempt at possible revascularization. Arterial Doppler completed, ALMA of the right 0.79. Per nursing staff patient is to have a BKA today with Dr. Bustillos. #2 sepsis, as evidenced by fever, leukocytosis, and elevated lactic acid present on admit. White blood cell improving to 14.2 from 16. Lactic acid normalized, 0.7. Infectious disease is following. Patient remains on Zosyn for IV antibiotics #3 hypoxic and hypercapnic respiratory failure with altered mental status changes secondary to severe sepsis. Patient was transferred to the intensive care unit and placed on mechanical ventilation. Patient is sedated on propofol . Per nursing staff patient is following commands . Vent things 50 FiO2, PEEP 5. 500 tidal volume, rate 18. Critical care services are following. #4. Hypotension secondary to septic shock. Levophed currently off. Blood pressure has improved, systolic 130s to 150s. #5. Acute kidney injury secondary to ATN secondary to hypotension as well as vancomycin toxicity. Nephrology services are following. Ultrasound completed showing no evidence of hydronephrosis. Creatinine increasing to 4. 35 and bun 57. Per nephrology services maintain 0.9 normal saline at 50/ml, avoid nephrotoxins. Vancomycin and lisinopril have been discontinued. continue to monitor urine output closely. Per nephrology discussion was held with family f or possible renal replacement therapy. #6. history of essential hypertension. Cardiology services following. EF 50- 55%. Per cardiology services no evidence of acute coronary syndrome at this time #7. insulin-dependent diabetes mellitus, with poor control due to noncompliance last hemoglobin A1c was 9.8 at this time will hold glipizide, Januvia and metformin, and cover was insulin to sliding scale will adjust medications as needed. Blood sugars have been in the 200s after episode of hypoglycemia. #8. underlying history of diabetic complications of peripheral neuropathy and retinopathy. #9. poor compliance with medical management, patient had extensive counseling in the last year, his A1c was down to 7.1 in June however it was up to 9.8 again recently. #10underlying history of hyperlipidemia maintained on atorvastatin, on hold. #11. Hypoglycemia. Home meds DC'd. Patient maintained on sliding scale coverage. Tube feedings have been initiated. Hypoglycemia has resolved #12. Suspected aspiration. Orogastric tube was coiled in the patient's mouth with tube feeds running. Tube was removed and replaced. Chest x-ray completed. Overall stable findings, no significant change from prior, bilateral small pleural effusions noted, CHF exacerbation versus fluid overload state. Repeat chest x-ray today per pulmonary. No acute changes made, no change in ABG. Infectious disease is following. DVT prophylaxis heparin. GI prophylaxis Protonix Patient remains in the intensive care unit on mechanical ventilation Critical care, vascular surgery, infectious disease, cardiology and nephrology services following I performed an examination of the patient and discussed their management with the Nurse Practitioner. I have reviewed the Nurse Practitioner's notes and ag ree with the documented findings and plan of care
[2019-01-22 11:36] LABS: Glucose,Whole Blood 184 mg/dL (75-99)
--- NOTE | 2019-01-22 15:17 | P.PN ---
Subjective Progress Note Date: 01/22/19 Patient seen and examined. No issues overnight per nursing. No further attempts at weaning. Initially patient became quite tachypnea at initial attempts. At this time discussion was had with infectious disease and critical care. Thoughts are that a portion of his inability to wean and subsequent nonim provement of his renal failure may be due to continued leg pathology in light of no overt purulent drainage or discharge. Given the extensive his wound and his significant infrapopliteal disease, long discussion was had with the family regarding best outcomes for this patient, and at this time with all the other issues he is facing I do agree that a below-knee amputation would resolve this quicker than local wound care and attempts at limb salvage. Given his significant infrapopliteal diseaseand inability find a posterior tibial signal on the right I would also suspect difficulty with wound healing without any significant debility for revascularization. I believe that to some degree the A BIs are falsely elevated due to the significant infrapopliteal disease and monophasic waveforms as well as the pressure gradients from the thigh to the ankle. Risks and benefits going forth were discussed with the family at length including but not limited to bleeding, recurrent infection, DC, adverse reactions to anesthesia and poor wound healing were also discussed. They seemingly understand and are willing to proceed as such In light of his remainder intubation and ICU status also discussed the possibility of leaving the posterior flap open and placing a wound VAC at this time in order to decrease surgical time. This is a possibility, and if it were to be done in this manner, it would not preclude him from weaning or extubation attempts as closure can be done under monitored anesthesia with a regional block Objective - Vital Signs Vital signs: Vital Signs Temp 98.7 F 01/22/19 12:00 Pulse 64 01/22/19 15:00 Resp 18 01/22/19 15:00 BP 141/68 01/22/19 15:00 Pulse Ox 96 01/22/19 15:00 Intake & Output 01/21/19 01/22/19 01/22/19 18:59 06:59 18:59 Intake Total 1254.73 1290.082 409 Output Total 735 1135 1130 Balance 519.73 155.082 -721 Weight 124.4 kg 123.8 kg Intake: IV 530 345 160 Piperacillin-Tazobactam 3 100 125 .375 gm In Sodium Chloride 0.9% 100 ml @ 25 mls/hr IVPB Q12H [place] Rx# :[id number] Sodium Chloride 0.9% 1, 430 220 160 000 ml @ 20 mls/hr IV . Q24H [place] Rx#:[id number] Intake, IV Titration 274.73 184.082 200 Amount Propofol 1,000 mg In 274.73 184.082 200 Empty Bag 1 bag @ Titrate IV .Q0M [place] Rx#: [id number] Tube Feeding 390 641 49 Other 60 120 0 Output: Urine 735 935 630 Stool 200 500 Other: Voiding Method Indwelling Catheter Indwelling Catheter Indwelling Catheter ABP, PAP, CO, CI - Last Documented Arterial Blood Pressure 154/54 - Labs CBC & Chem 7: 01/22/19 04:20 01/22/19 04:20 Labs: Abnormal Lab Results - Last 24 Hours (Table) 01/21/19 01/21/19 01/22/19 Range/Units 17:08 23:20 03:49 WBC (3.8-10.6) k/uL RBC (4.30-5.90) m/uL Hgb (13.0-17.5) gm/dL Hct (39.0-53.0) % Neutrophils # (1.3-7.7) k/uL Lymphocytes # (1.0-4.8) k/uL ABG pH 7.32 L (7.35-7.45) ABG HCO3 19 L (21-25) mmol/L Chloride (98-107) mmol/L Carbon Dioxide (22-30) mmol/L BUN (9-20) mg/dL Creatinine (0.66-1.25) mg/dL Glucose (74-99) mg/dL POC Glucose (mg/dL) 177 H 189 H (75-99) mg/dL Calcium (8.4-10.2) mg/dL Phosphorus (2.5-4.5) mg/dL ALT (21-72) U/L Total Protein (6.3-8.2) g/dL Albumin (3.5-5.0) g/dL 01/22/19 01/22/19 01/22/19 Range/Units 04:20 04:20 06:09 WBC 14.2 H (3.8-10.6) k/uL RBC 3.60 L (4.30-5.90) m/uL Hgb 10.8 L (13.0-17.5) gm/dL Hct 33.5 L (39.0-53.0) % Neutrophils # 12.5 H (1.3-7.7) k/uL Lymphocytes # 0.7 L (1.0-4.8) k/uL ABG pH (7.35-7.45) ABG HCO3 (21-25) mmol/L Chloride 113 H (98-107) mmol/L Carbon Dioxide 21 L (22-30) mmol/L BUN 60 H (9-20) mg/dL Creatinine 4.84 H (0.66-1.25) mg/dL Glucose 232 H (74-99) mg/dL POC Glucose (mg/dL) 236 H (75-99) mg/dL Calcium 7.4 L (8.4-10.2) mg/dL Phosphorus 6.6 H (2.5-4.5) mg/dL ALT 20 L (21-72) U/L Total Protein 5.0 L (6.3-8.2) g/dL Albumin 2.2 L (3.5-5.0) g/dL 01/22/19 Range/Units 11:35 WBC (3.8-10.6) k/uL RBC (4.30-5.90) m/uL Hgb (13.0-17.5) gm/dL Hct (39.0-53.0) % Neutrophils # (1.3-7.7) k/uL Lymphocytes # (1.0-4.8) k/uL ABG pH (7.35-7.45) ABG HCO3 (21-25) mmol/L Chloride (98-107) mmol/L Carbon Dioxide (22-30) mmol/L BUN (9-20) mg/dL Creatinine (0.66-1.25) mg/dL Glucose (74-99) mg/dL POC Glucose (mg/dL) 184 H (75-99) mg/dL Calcium (8.4-10.2) mg/dL Phosphorus (2.5-4.5) mg/dL ALT (21-72) U/L Total Protein (6.3-8.2) g/dL Albumin (3.5-5.0) g/dL Microbiology - Last 24 Hours (Table) 01/15/19 20:20 Blood Culture - Final Blood No Growth after 144 hours 01/19/19 14:20 Blood Culture - Preliminary Blood No Growth after 48 hours 01/17/19 09:20 Anaerobic Culture - Final Toe - Right Fifth Anaerobic Gm Negative Bacilli Anaerobic Gm Negative Bacilli#2 Anaerobic Gm Negative Bacilli#3 Anaerobic Gm Negative Bacilli#4
--- NOTE | 2019-01-22 15:48 | PN ---
PROGRESS NOTE Patient is seen for followup for acute kidney injury. He is going for right BKA this afternoon. Last night patient's urine output had dropped. He did get one dose of Lasix 60 mg IV push. Since then, he has maintained his urine output. Serum creatinine is, however, up to 4.8. Patient remains on the vent. FiO2 is at 50%. He is not on any pressors. He is maintained on sedation. PHYSICAL EXAMINATION: On examination this afternoon, blood pressure is 137/72, heart rate 64 per minute. Patient is afebrile. EXAMINATION OF THE HEART: S1 and S2. EXAMINATION OF LUNGS: Bilateral breath sounds are heard. ABDOMEN: Soft, non-tender, distended. Examination of lower extremities shows edema 1+ bilaterally. LABS: Sodium 142, potassium 4.2, chloride 113. CO2 is 21, BUN 60, serum creatinine 4.84, hemoglobin 10.8 g/dL. ASSESSMENT: 1. Acute kidney injury, acute tubular necrosis, nonoliguric, with worsening renal function. No indication to start hemodialysis today. However, patient's family is advised that we may need to start dialysis treatments in the next 24 to 48 hours. 2. Status post right fourth and fifth toe amputation for wet gangrene, now scheduled for below-knee amputation. 3. Acute respiratory failure, hypoxic, hypercapnic, currently on the vent. 4. Volume overload, maintained on Lasix. Patient has been receiving it almost on a daily basis as a one-time order. Not on any IV fluids currently. PLAN: Recommend discontinuation of vancomycin. I see that patient is off it now. Re-evaluate for need for dialysis tomorrow. Continue off of IV fluids. Continue to avoid nephrotoxic agents. MMODL / IJN: [id number] /
[2019-01-22] MEDS: MORPHINE SULFATE 2 MG/ML SYRINGE IVP PRN (16:17)
[2019-01-22] MEDS ORDERED: ROCURONIUM BROMIDE 10 MG/ML 10 ML VIAL IV ONE (16:25)
[2019-01-22] MEDS ORDERED: fentaNYL (PF) 50 MCG/ML 2 ML AMP ONE (16:25)
[2019-01-22] MEDS ORDERED: PHENYLEPHRINE-0.9% NACL SYG 1 MG/10 ML SYRINGE ONE (16:25)
--- NOTE | 2019-01-22 16:33 | CDI ---
Documentation Clarification Form Date: 01/22/2019 4:04:15 PM From: Renata Real RN, CCDS Admit Date: 01/15/2019 9:21:00 PM Patient Name: Refugio Saenz Visit Number: [id number] Discharge Date: ATTENTION: The Clinical Documentation Specialists (CDI) and [facility] Coding Staff appreciate your assistance in clarifying documentation. Please respond to the clarification below the line at the bottom and electronically sign. The CDI & [facility] Coding staff will review the response and follow-up if needed. Please note: Queries are made part of the Legal Health Record. If you have any questions, please contact the author of this message via ITS. Dr. Toshia Bustillos The patient presented with wet gangrene right fifth toe. History/Risk Factors: Diabetes mellitus, Diabetic complications with Retinopathy and Peripheral neuropathy, Hypertension, Clinical Indicators: 68-year-old male who present with gangrene of his right fifth toe. He is unsure how long it has been this way. On 01/16/19 and your ongoing progress notes you have documented uncontrolled type 2 diabetes and further clarification is needed He apparently stopped taking his insulin and his medications. Lab findings: Hemoglobin A1 c in June/2018 was 7.1, in September/2018 was 7.2, 9.8 November/2018 blood sugar 498, 01/16 blood sugar 357, 299 Treatment: monitoring blood sugar ( with coverage per orders) Novolog SQ Q6h In your professional opinion, can you please clarify Uncontrolled type 2 diabetes? Type 2 Diabetes Mellitus, with Hyperglycemia Type 2 Diabetes Mellitus, with Hypoglycemia Other, please specify Unable to determine (Last Revision: May 2017) MTDD
[2019-01-22] MEDS ORDERED: SODIUM CHLORIDE 0.9% 1,000 ML IV ONE (16:38)
--- NOTE | 2019-01-22 17:09 | CDI ---
Documentation Clarification Form Date: 01/22/2019 4:39:52 PM From: Renata Real RN, CCDS Admit Date: 01/15/2019 9:21:00 PM Patient Name: Refugio Saenz Visit Number: [id number] Discharge Date: ATTENTION: The Clinical Documentation Specialists (CDI) and [facility] Coding Staff appreciate your assistance in clarifying documentation. Please respond to the clarification below the line at the bottom and electronically sign. The CDI & [facility] Coding staff will review the response and follow-up if needed. Please note: Queries are made part of the Legal Health Record. If you have any questions, please contact the author of this message via ITS. Dr. Dillon rGanger Altered Mental Status was documented in the progress notes and ongoing progress notes per Dr. Dominguez and further clarification is needed. History/Risk Factors: Diabetes mellitus, complicated with neuropathy and retinopathy, poor compliance, Hypertension Clinical Indicators: 68-year-old male present with gangrene involving the right fifth toe with cellulitis and sepsis per progress notes on 01/18/19. He was noted to be slow to respond, lethargic not responding to questions. He was tachypenic and tachycardic. He was transferred to ICU and was intubated due to a pH of 7.12 on ABD and significant work of breathing with tachypnea. 01/18/19 @15:30 131/62 77 25 93 % non-rebreather Labs: 01/18/19 WBC 19.2 BUN 56, CR 3.55 Chest x-ray: low lung volume and cardiomegaly with central vascular congestion and bibasilar, acute infiltrate and or atelectasis with probable small bilateral pleural effusion. Treatment: ICU Monitoring Neurological assessment per protocol Monitor CBC, lytes, BUN, CR Ventilator support adjust per pulmonary In your professional opinion, please clarify the etiology of the Altered Mental Status, if known. Metabolic Encephalopathy Hypoxic Encephalopathy Other condition (please specify) Unable to determine (Last Revision: May 2017) metabolic encephalopathy MTDD
[2019-01-22 18:23] LABS: Glucose,Whole Blood 180 mg/dL (75-99)
--- NOTE | 2019-01-22 18:34 | P.OP ---
Date of Procedure: 01/22/19 Description of Procedure: Preoperative diagnosis: Right lower extremity wet gangrene, inability to wean from ventilator Postoperative diagnosis: Same Procedure: Right below-knee amputation Surgeon: Toshia Bustillos D.O. EBL: 150 mL IV fluids: See anesthesia records Urine output: See records Drains: None Complications: None immediately apparent Condition: Remains intubated, critical condition to the ICU Operative indication and findings: Patient is a 68-year-old male who previously presented with a wet gangrene and infection of his fifth toe which extended into his fourth toe and up into his ankle this was previously debrided with a ray amputation and incision and drainage of the areas of abscess. He since has done worse, and intubated with acute renal failure. It was discussed with both infectious disease and critical care and recommendations were made to undergo a right below-knee amputation. Risks and benefits were discussed with the family members. They seemingly understood and were willing to proceed. Procedure in detail: The patient is taken to the operative suite was placed in supine position on the table he was previously intubated once anesthesia was adequate the right lower extremity was prepped and draped in usual sterile fashion and a preprocedure timeout was performed, all parties in agreement. The markings for the anterior and posterior incisions were made for a long posterior flap. The incision was made and carried down to the fascia with electrocautery. The fascia was incised. Muscle the anterior and medial compartments were transected with electrocautery. The periosteal tissue was elevated with a Ramos elevator as well as the fibula. Oscillating bone saw was utilized to transect the tibia and then the fibula approximately 1.5-2 cm more proximally. A rasp was used to smooth the bone. That point hemostasis was controlled with sutures of 0 silk and 2 ties. There is copiously irrigated. Hemostasis was controlled with electrocautery. The fascia was then reapproximated using interrupted [id number] sutures of 3-0 Vicryl. The skin was then reapproximated with robert. Dressings were placed. The patient transferred to ICU in stable condition having tolerated the procedure well.
[2019-01-22 20:42] LABS: Basophils # (A) 0.1 k/uL (0-0.2); Basophils % (A) 1 %; Eosinophils # (A) 0.4 k/uL (0-0.7); Eosinophils % (A) 3 %; HCT 32.1 % (39.0-53.0); HGB 10.4 gm/dL (13.0-17.5); Hypochromasia Slight; Lymphocytes # (A) 0.7 k/uL (1.0-4.8); Lymphocytes % (A) 5 %; MCH 30.1 pg (25.0-35.0); MCHC 32.5 g/dL (31.0-37.0); MCV 92.6 fL (80.0-100.0); Mean Platelet Volume 8.5; Monocytes # (A) 0.4 k/uL (0-1.0); Monocytes % (A) 3 %; Neutrophils % (A) 88 %; Platelet Count 233 k/uL (150-450); RBC 3.47 m/uL (4.30-5.90); RDW 12.5 % (11.5-15.5); WBC 13.7 k/uL (3.8-10.6)
[2019-01-22] MEDS: LATANOPROST 0.005% OPHTH DROPS 2.5 ML BTL LEFT EYE SCH (21:54)
[2019-01-22 23:51] LABS: Glucose,Whole Blood 182 mg/dL (75-99)
[2019-01-23] MEDS: PROPOFOL 1,000 MG in EMPTY BAG 1 BAG IV SCH ×4 (00:02→22:50)
[2019-01-23 04:19] LABS: Basophils # (A) 0.1 k/uL (0-0.2); Basophils % (A) 1 %; Eosinophils # (A) 0.4 k/uL (0-0.7); Eosinophils % (A) 3 %; HCT 32.7 % (39.0-53.0); HGB 10.3 gm/dL (13.0-17.5); Lymphocytes # (A) 0.8 k/uL (1.0-4.8); Lymphocytes % (A) 6 %; MCH 29.2 pg (25.0-35.0); MCHC 31.6 g/dL (31.0-37.0); MCV 92.3 fL (80.0-100.0); Mean Platelet Volume 10.1; Monocytes # (A) 0.5 k/uL (0-1.0); Monocytes % (A) 4 %; Neutrophils # (A) 11.3 k/uL (1.3-7.7); Neutrophils % (A) 86 %; Platelet Count 223 k/uL (150-450); RBC 3.54 m/uL (4.30-5.90); RDW 12.6 % (11.5-15.5); WBC 13.2 k/uL (3.8-10.6)
[2019-01-23 04:37] LABS: Albumin 2.1 g/dL (3.5-5.0); Calcium 7.4 mg/dL (8.4-10.2); Potassium 4.1 mmol/L (3.5-5.1); Total Bilirubin 0.4 mg/dL (0.2-1.3)
[2019-01-23 05:40] LABS: ABG HCO3 19 mmol/L (21-25); ABG Oxygen Saturation 95.7 % (94-97); ABG PCO2 37 mmHg (35-45); ABG PH 7.32 (7.35-7.45); ABG PO2 79 mmHg (83-108); ABG TCO2 20 mmol/L (19-24); Allen Test Performed? Yes
[2019-01-23 06:08] LABS: Glucose,Whole Blood 202 mg/dL (75-99)
[2019-01-23] MEDS: PIPERACILLIN-TAZOBACTAM 3.375 GM in SODIUM CHLORIDE 0.9% 100 ML IVPB SCH ×2 (06:20→17:02)
[2019-01-23] MEDS: INSULIN ASPART (NovoLOG) 100 UNIT/ML VIAL SQ SCH ×2 (06:20→13:31)
[2019-01-23] MEDS: SODIUM CHLORIDE 0.9% 1,000 ML IV SCH ×3 (06:23→21:35)
[2019-01-23] MEDS: NOREPINEPHRINE 4 MG in SODIUM CHLORIDE 0.9% 250 ML IV SCH ×3 (08:45→23:08)
[2019-01-23] MEDS: PANTOPRAZOLE 40 MG/10 ML VIAL IV SCH (09:20)
[2019-01-23] MEDS: CHLORHEXIDINE GLUCONATE 15 ML CUP MUCOUS MEM SCH ×2 (09:21→21:32)
[2019-01-23] MEDS: HEPARIN SODIUM,PORCINE 5,000 UNIT/ML 1 ML VIAL SQ SCH ×3 (09:21→23:36)
[2019-01-23] MEDS: GABAPENTIN 100 MG CAP PO SCH ×3 (09:21→21:32)
[2019-01-23] MEDS: FLUoxetine HCL 20 MG CAP PO SCH (09:21)
[2019-01-23] MEDS: TIMOLOL 0.5% OPHTH DROPS 5 ML BTL LEFT EYE SCH ×2 (09:28→21:33)
[2019-01-23] MEDS: DORZOLAMIDE HCL 2% DROPS 10 ML BTL LEFT EYE SCH ×3 (09:28→21:33)
[2019-01-23] MEDS: BRIMONIDINE TARTRATE 0.2% DROPS 5 ML BTL LEFT EYE SCH ×3 (09:29→21:34)
--- NOTE | 2019-01-23 09:51 | XR ---
EXAMINATION TYPE: XR chest 1V portable DATE OF EXAM: 01/23/2019 COMPARISON: 01/22/2019 HISTORY: Shortness of breath TECHNIQUE: Single frontal view of the chest is obtained. FINDINGS: There are bilateral pleural effusions with cardiomegaly and bibasilar infiltrate. There is a diffuse interstitial pattern. ET and NG tubes stable. Right-sided central line stable. Tip near th e region of the right atrium. IMPRESSION: 1. Bilateral diffuse pleural-parenchymal disease correlate for CHF. Underlying pneumonia not excluded . Findings stable.
--- NOTE | 2019-01-23 10:29 | P.PN ---
Subjective Patient is seen in follow-up for acute kidney injury. Renal function is stable. Creatinine 4.82. He is receiving tube feeding. Remains intubated. Underwent right briae-mcn-myha amputation yesterday. Vital signs are stable. General: The patient appeared well nourished and normally developed. HEENT: Head exam is unremarkable. Neck is without jugular venous distension. Intubated. LUNGS: Lungs are clear to auscultation and percussion. Breath sounds decreased. HEART: Rate and Rhythm are regular. First and second heart sounds normal. No murmurs, rubs or gallops. ABDOMEN: Abdominal exam reveals normal bowel sounds. Soft. EXTREMITITES: Trace edema. Right BKA noted. Objective - Vital Signs Vital signs: Vital Signs Temp 99 F 01/23/19 04:00 Pulse 71 01/23/19 09:00 Resp 18 01/23/19 09:00 BP 146/62 01/23/19 09:00 Pulse Ox 97 01/23/19 09:00 Intake & Output 01/22/19 01/23/19 01/23/19 18:59 06:59 18:59 Intake Total 976 1106.673 313.554 Output Total 1525 837 145 Balance -549 269.673 168.554 Weight 125.1 kg Intake: IV 627 376 69 0.9 Normal Saline ( 27 36 9 pressure bag) at 3mL/hr Piperacillin-Tazobactam 3 100 100 .375 gm In Sodium Chloride 0.9% 100 ml @ 25 mls/hr IVPB Q12H [place] Rx# :[id number] Sodium Chloride 0.9% 1, 200 240 60 000 ml @ 20 mls/hr IV . Q24H [place] Rx#:[id number] Intake, IV Titration 300 193.673 67.554 Amount Propofol 1,000 mg In 300 193.673 67.554 Empty Bag 1 bag @ Titrate IV .Q0M [place] Rx#: [id number] Tube Feeding 49 447 147 Other 0 90 30 Output: Urine 875 537 145 Stool 500 300 Estimated Blood Loss 150 Other: Voiding Method Indwelling Catheter Indwelling Catheter Indwelling Catheter ABP, PAP, CO, CI - Last Documented Arterial Blood Pressure 162/62 - Labs CBC & Chem 7: 01/23/19 04:10 01/23/19 04:10 Labs: Abnormal Lab Results - Last 24 Hours (Table) 01/22/19 01/22/19 01/22/19 Range/Units 11:35 18:21 19:55 WBC 13.7 H (3.8-10.6) k/uL RBC 3.47 L (4.30-5.90) m/uL Hgb 10.4 L (13.0-17.5) gm/dL Hct 32.1 L (39.0-53.0) % Neutrophils # 12.0 H (1.3-7.7) k/uL Lymphocytes # 0.7 L (1.0-4.8) k/uL ABG pH (7.35-7.45) ABG pO2 (83-108) mmHg ABG HCO3 (21-25) mmol/L Chloride (98-107) mmol/L Carbon Dioxide (22-30) mmol/L BUN (9-20) mg/dL Creatinine (0.66-1.25) mg/dL Glucose (74-99) mg/dL POC Glucose (mg/dL) 184 H 180 H (75-99) mg/dL Calcium (8.4-10.2) mg/dL Phosphorus (2.5-4.5) mg/dL Total Protein (6.3-8.2) g/dL Albumin (3.5-5.0) g/dL 01/22/19 01/23/19 01/23/19 Range/Units 23:49 04:10 04:10 WBC 13.2 H (3.8-10.6) k/uL RBC 3.54 L (4.30-5.90) m/uL Hgb 10.3 L (13.0-17.5) gm/dL Hct 32.7 L (39.0-53.0) % Neutrophils # 11.3 H (1.3-7.7) k/uL Lymphocytes # 0.8 L (1.0-4.8) k/uL ABG pH (7.35-7.45) ABG pO2 (83-108) mmHg ABG HCO3 (21-25) mmol/L Chloride 114 H (98-107) mmol/L Carbon Dioxide 19 L (22-30) mmol/L BUN 60 H (9-20) mg/dL Creatinine 4.82 H (0.66-1.25) mg/dL Glucose 206 H (74-99) mg/dL POC Glucose (mg/dL) 182 H (75-99) mg/dL Calcium 7.4 L (8.4-10.2) mg/dL Phosphorus 7.0 H (2.5-4.5) mg/dL Total Protein 5.0 L (6.3-8.2) g/dL Albumin 2.1 L (3.5-5.0) g/dL 01/23/19 01/23/19 Range/Units 05:37 06:06 WBC (3.8-10.6) k/uL RBC (4.30-5.90) m/uL Hgb (13.0-17.5) gm/dL Hct (39.0-53.0) % Neutrophils # (1.3-7.7) k/uL Lymphocytes # (1.0-4.8) k/uL ABG pH 7.32 L (7.35-7.45) ABG pO2 79 L (83-108) mmHg ABG HCO3 19 L (21-25) mmol/L Chloride (98-107) mmol/L Carbon Dioxide (22-30) mmol/L BUN (9-20) mg/dL Creatinine (0.66-1.25) mg/dL Glucose (74-99) mg/dL POC Glucose (mg/dL) 202 H (75-99) mg/dL Calcium (8.4-10.2) mg/dL Phosphorus (2.5-4.5) mg/dL Total Protein (6.3-8.2) g/dL Albumin (3.5-5.0) g/dL Microbiology - Last 24 Hours (Table) 01/19/19 14:20 Blood Culture - Preliminary Blood No Growth after 72 hours Assessment and Plan Plan: Assessment: 1. Acute kidney injury secondary to ATN secondary to hypotension as well as vancomycin toxicity. Patient's creatinine was 1.1 on admission and peaked at 4.84 this admission stable at 4.82 today - . No evidence of hydronephrosis noted on kidney ultrasound. Urine output about 50 mL an hour. 2. Right foot fourth and fifth toe wet gangrene status post amputation and subsequent BKA on January 24. 3. Acute mixed hypercapnic and hypoxic respiratory failure. Currently intubated. 4. Insulin-dependent diabetes mellitus. 5. Metabolic acidosis secondary to acute kidney injury. 6. Volume overload. Better. Plan: Remains off IV fluids. Tube feeding running at goal. Hold off on diuretics today. Continue to monitor renal function and urine output. Continue to assess on daily basis for need for renal replacement therapy. Wean FiO2.
[2019-01-23 12:18] LABS: Glucose,Whole Blood 252 mg/dL (75-99)
--- NOTE | 2019-01-23 14:12 | P.PN ---
Subjective Progress Note Date: 01/23/19 Refugio Saenz, is a 68-year-old male who presented to [facility] emergency room with pain in the right foot, he was evaluated in emergency room and had blackish discoloration of the right fifth toe with surrounding erythema and tenderness, patient was started on IV antibiotics Zosyn, vancomycin, and clindamycin, he was admitted to medical floor vascular surgery consultation was requested for possible amputation due to evidence of gangrene. Infectious disease consultation was requested. Patient has a known history of insulin-dependent diabetes mellitus, his glucose level was well controlled up until September of this year his A1c in June was 7.1 and in September was 7.3 however apparently patient stopped taking his insulin and his medications and his A1c was up to 9.8 in November, he has a known history of right foot ulcer he was admitted to the hospital with right foot cellulitis and ulcer in 2014 and he was followed at the wound care clinic in 2015 however he was doing well up until recently. Patient also has a known history of hypertension, hyperlipidemia, he denies any history of coronary artery disease or congestive heart failure, he had an echocardiogram done in 2014 at that time he had normal left ventricular function was normal ejection fraction, no significant valvular disease and no pulmonary hypertension. 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 On 01/17/2019 patient's alert and oriented 3. Patient had fourth and fifth toe amputation with Dr. Bustillos this morning. Patient having some low blood pressure will give 500 mL bolus. Patient denies chest pain or shortness of breath. Patient denies nausea vomiting or diarrhea. Patient is having some increased pain to foot area pain medications ordered 01/18/2019, patient seen eval examined while covering for Dr. Granger, waking up this morning slightly slow to respond but not confused, breathing comfortably denies any chest pain labs reviewed today patient has been evaluated by Dr. Bassett, white cell count is coming down to 19,000, lactic acid level is normalized, patient has been on broad-spectrum antibiotics with vascular surgery on board 01/19/2019, patient seen and evaluated examined in the ICU intubated on full ventilator support, patient had gradual loss of consciousness has been more lethargic arterial blood gases were checked shows hypercapnic and hypoxic respiratory failure was intubated in the ICU, patient has been placed on propo fol he was volume depleted depleted aggressive fluid resuscitation were performed, is still requiring levophed intermittently, patient was also noted to be hypoglycemic 7030 insulin and other oral hypoglycemic agents were discontinued, ultrasound of the abdomen has been performed which is reviewed no obvious hydronephrosis seen, patient has decreased urine output along with rising BUN/creatinine appeared to be acute tubular necrosis, patient also requiring intermittent bolus of D10 for hypoglycemia, wounds has been evaluated by vascular surgery noted recommendation, patient has very poor venous access, will put a central line in, critical care time 45 minutes during procedure, due to altered mental status CT of the head was performed which was negative On 01/20/2019 patient remains in the intensive care unit on mechanical ventilation. Levophed has been on hold blood pressures has sustained. Creatinine has increased to 4.17 and bun 56. Nephrology services are following. Per nursing staff patient does follow commands during sedation holiday ABGs have improved. Discussed case with vascular surgeon nurse practitioner possible BKA discussion. White blood cell decreasing to 16.0. Critical care services are following. Patient remains on Zosyn for IV antibiotics. Infectious disease following 01/21/2019 patient remains on mechanical ventilation on in the intensive care unit. Patient remains sedated, on propofol. However per nursing staff patient does follow commands during sedation holiday. Patient is on 50% FiO2, 5 PEEP, tidal volume 500. Levophed off since 01/20/20. Blood pressure remains in the 130's-150's systolic. Creatinine 4.35 from 4.17 and BUN 57 from 56, Calcium 7.0, phosphorus 5.9 Nephrology is following. Orogastric tube replaced this morning. Per nursing staff OG tube was coiled in patient's mouth with tube feeds running. Chest x-ray repeated, no significant change from previous. ABG improving, still metabolic acidosis. WBC of 14.1 down from 16. Afebrile. Infectious disease is following patient is maintained on Zosyn. Will send C. diff sample due to new onset diarrhea for 1 day. Hyperglycemia noted (glucose 200's). Will discuss tube feed formula with dietary. If no changes can be made will adjust sliding scale. On 01/22/2019 patient remains sedated on mechanical ventilation in the intensive care unit. Per nursing staff patient is to have a BKA today with Dr. Bustillos. Patient remains off pressors, blood pressure has been stable. Chest x-ray repeated this morning, per pulmonary. No significant change in ABGs. Creatinine continues to increase, 4.84 today BUN 60, patient is still making adequate urine output nephrology is following. Tube feeds on hold, for pending OR. WBC 14.2, temperature overnight 100F. Please is following patient is maintained on Zosyn. C. diff sample was negative. 01/23/2019 patient remains sedated and on mechanical ventilation in the ICU. He underwent right BKA yesterday, 01/22/[address] Bustillos. Estimated blood loss 150 mL. He had a temp of 100 last night. Urine output is about 50 mL per hour. Creatinine has gone down from 4.84-4.82. Nephrology is following closely. No plans for hemodialysis yet. Patient's blood sugars are starting to become more elevated. They're in the 180s to 200s. Tube feedings are being adjusted. White count 13.7 hemoglobin 10.3 Objective - Vital Signs Vital signs: Vital Signs Temp 99 F 01/23/19 04:00 Pulse 73 01/23/19 10:00 Resp 18 01/23/19 10:00 BP 144/64 01/23/19 10:00 Pulse Ox 97 01/23/19 10:00 Intake & Output 01/22/19 01/23/19 01/23/19 18:59 06:59 18:59 Intake Total 976 1106.673 457.554 Output Total 1525 837 225 Balance -549 269.673 232.554 Weight 125.1 kg Intake: IV 627 376 115 0.9 Normal Saline ( 27 36 15 pressure bag) at 3mL/hr Piperacillin-Tazobactam 3 100 100 .375 gm In Sodium Chloride 0.9% 100 ml @ 25 mls/hr IVPB Q12H [place] Rx# :[id number] Sodium Chloride 0.9% 1, 200 240 100 000 ml @ 20 mls/hr IV . Q24H [place] Rx#:[id number] Intake, IV Titration 300 193.673 67.554 Amount Propofol 1,000 mg In 300 193.673 67.554 Empty Bag 1 bag @ Titrate IV .Q0M [place] Rx#: [id number] Tube Feeding 49 447 245 Other 0 90 30 Output: Urine 875 537 225 Stool 500 300 Estimated Blood Loss 150 Other: Voiding Method Indwelling Catheter Indwelling Catheter Indwelling Catheter ABP, PAP, CO, CI - Last Documented Arterial Blood Pressure 154/52 - Exam Head normocephalic Neck supple Lungs clear to auscultation bilaterally no wheezing or crackles Heart regular rate and rhythm S1-S2, no rub or gallop Abdomen is soft nontender nondistended positive bowel sounds no hepatosplenomegaly Extremities some swelling noted in upper extremities. Right [id number] amputation leg is in brace Neuro patient is sedated and on mechanical ventilation - Labs CBC & Chem 7: 01/23/19 04:10 01/23/19 04:10 Labs: Abnormal Lab Results - Last 24 Hours (Table) 01/22/19 01/22/19 01/22/19 Range/Units 18:21 19:55 23:49 WBC 13.7 H (3.8-10.6) k/uL RBC 3.47 L (4.30-5.90) m/uL Hgb 10.4 L (13.0-17.5) gm/dL Hct 32.1 L (39.0-53.0) % Neutrophils # 12.0 H (1.3-7.7) k/uL Lymphocytes # 0.7 L (1.0-4.8) k/uL ABG pH (7.35-7.45) ABG pO2 (83-108) mmHg ABG HCO3 (21-25) mmol/L Chloride (98-107) mmol/L Carbon Dioxide (22-30) mmol/L BUN (9-20) mg/dL Creatinine (0.66-1.25) mg/dL Glucose (74-99) mg/dL POC Glucose (mg/dL) 180 H 182 H (75-99) mg/dL Calcium (8.4-10.2) mg/dL Phosphorus (2.5-4.5) mg/dL Total Protein (6.3-8.2) g/dL Albumin (3.5-5.0) g/dL 01/23/19 01/23/19 01/23/19 Range/Units 04:10 04:10 05:37 WBC 13.2 H (3.8-10.6) k/uL RBC 3.54 L (4.30-5.90) m/uL Hgb 10.3 L (13.0-17.5) gm/dL Hct 32.7 L (39.0-53.0) % Neutrophils # 11.3 H (1.3-7.7) k/uL Lymphocytes # 0.8 L (1.0-4.8) k/uL ABG pH 7.32 L (7.35-7.45) ABG pO2 79 L (83-108) mmHg ABG HCO3 19 L (21-25) mmol/L Chloride 114 H (98-107) mmol/L Carbon Dioxide 19 L (22-30) mmol/L BUN 60 H (9-20) mg/dL Creatinine 4.82 H (0.66-1.25) mg/dL Glucose 206 H (74-99) mg/dL POC Glucose (mg/dL) (75-99) mg/dL Calcium 7.4 L (8.4-10.2) mg/dL Phosphorus 7.0 H (2.5-4.5) mg/dL Total Protein 5.0 L (6.3-8.2) g/dL Albumin 2.1 L (3.5-5.0) g/dL 01/23/19 01/23/19 Range/Units 06:06 12:16 WBC (3.8-10.6) k/uL RBC (4.30-5.90) m/uL Hgb (13.0-17.5) gm/dL Hct (39.0-53.0) % Neutrophils # (1.3-7.7) k/uL Lymphocytes # (1.0-4.8) k/uL ABG pH (7.35-7.45) ABG pO2 (83-108) mmHg ABG HCO3 (21-25) mmol/L Chloride (98-107) mmol/L Carbon Dioxide (22-30) mmol/L BUN (9-20) mg/dL Creatinine (0.66-1.25) mg/dL Glucose (74-99) mg/dL POC Glucose (mg/dL) 202 H 252 H (75-99) mg/dL Calcium (8.4-10.2) mg/dL Phosphorus (2.5-4.5) mg/dL Total Protein (6.3-8.2) g/dL Albumin (3.5-5.0) g/dL Microbiology - Last 24 Hours (Table) 01/19/19 14:20 Blood Culture - Preliminary Blood No Growth after 72 hours Assessment and Plan Assessment: #1 gangrene involving the right fifth toe with surrounding cellulitis, Status post amputation of fourth and fifth toe with Dr. Bustillos. Patient is now status post right BKA. Surgery completed on 01/22/2019 . Continue IV Zosyn #2 sepsis, as evidenced by fever, leukocytosis, and elevated lactic acid present on admit. Secondary to the right foot gangrene. White blood cell improving to 14.2 from 16. Lactic acid normalized, 0.7. Infectious disease is following. Patient remains on Zosyn for IV antibiotics #3 hypoxic and hypercapnic respiratory failure with altered mental status changes secondary to severe sepsis. Patient was transferred to the intensive ca re unit and placed on mechanical ventilation. Patient is sedated on propofol . Per nursing staff patient is following commands . Vent things 50 FiO2, PEEP 5. 500 tidal volume, rate 18. Critical care services are following. #4. Hypotension secondary to septic shock. Levophed currently off. Blood pressure has improved, systolic 130s to 150s. #5. Acute kidney injury secondary to ATN secondary to hypotension as well as vancomycin toxicity. Nephrology services are following. Ultrasound completed showing no evidence of hydronephrosis. Creatinine increasing to 4. 35 and bun 57. Per nephrology services maintain 0.9 normal saline at 50/ml, avoid nephrotoxins. Vancomycin and lisinopril have been discontinued. continue to monitor urine output closely. Per nephrology discussion was held with family for possible renal replacement therapy. Patient not requiring hemodialysis yet. He remains off of IV fluids. Nephrology is holding diuretics today. #6. history of essential hypertension. Cardiology services following. EF 50- 55%. Per cardiology services no evidence of acute coronary syndrome at this time #7. insulin-dependent diabetes mellitus, with poor control due to noncompliance last hemoglobin A1c was 9.8 at this time will hold glipizide, Januvia and metformin, and cover was insulin to sliding scale will adjust medications as needed. Blood sugars have been in the 200s after episode of hypoglycemia. Blood sugars are back into the 200s. Patient will be placed on insulin drip for tight blood sugar control #8. underlying history of diabetic complications of peripheral neuropathy and retinopathy. #9. poor compliance with medical management, patient had extensive counseling in the last year, his A1c was down to 7.1 in June however it was up to 9.8 again recently. #10underlying history of hyperlipidemia maintained on atorvastatin, on hold. #11. Hypoglycemia. Home meds DC'd. Patient maintained on sliding scale coverage. Tube feedings have been initiated. Hypoglycemia has resolved #12. Suspected aspiration. Orogastric tube was coiled in the patient's mouth with tube feeds running. Tube was removed and replaced. Chest x-ray completed. Overall stable findings, no significant change from prior, bilateral small pleural effusions noted, CHF exacerbation versus fluid overload state. Repeat chest x-ray today per pulmonary. No acute changes made, no change in ABG. Infectious disease is following. DVT prophylaxis heparin. GI prophylaxis Protonix Patient remains in the intensive care unit on mechanical ventilation Critical care, vascular surgery, infectious disease, cardiology and nephrology services following I performed an examination of the patient and discussed their management with the physician Fishing Instructor. I have reviewed the Physician Fishing Instructor's notes and agree with the documented findings and plan of care
[2019-01-23 15:02] LABS: Glucose,Whole Blood 262 mg/dL (75-99)
[2019-01-23] MEDS: INSULIN REGULAR 100 UNIT in SODIUM CHLORIDE 0.9% 100 ML IV SCH (15:04)
--- NOTE | 2019-01-23 15:09 | P.PN ---
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 We'll patient has been diuresing fairly well has been negative for the first time, urine output of 30-40 mL an hour. BUN/creatinine remains stable, patient is postop day #1 of the BKA, chest x-ray from today reviewed findings are most suggestive of fluid overload less likely to be pneumonia, the ET tube and central line and NG tube was stable, white cell count is 13,000 arterial blood gases remained stable, BUN/creatinine gradually going up is 60 and 4.8 to, sugar is running on the higher side last check sugar was over 260 patient is being started on insulin drip 01/21/2019, patient seen and evaluated examined during the rounds labs reviewed medications reviewed, patient the remains on sedation with propofol mildly sedated he does wake up follow simple commands and munira -1-2, he remains on IV fluids gently being rehydrated 50 mL an hour to feed is being given this morning patient noted to have a tube coiling in the mouth as He is to have pulled out late morning hours, the need to be has been placed position has been confirmed chest x-ray continued to show for evidence of fluid overload and this should edema along with possible infiltrate, he remains on assist control rate of 18 and tidal volume of 505 of PEEP and oxygen is 50% he is +1.2 L since morning, care plan discussed with nephrology as well as the vascular surgery, as his BUN and creatinine continued to go up creatinine is 5.1 in spite of good adequate urine output, patient continue on broad-spectrum antibiotic when setting remains stable respiratory secretions are still thick tenacious and appears to be improv ing slowly, blood cultures and sputum culture has been negative, need to make eyes and nose on the negative side as well as would like to see been function improving before consideration of weaning that anticipate will take another 24- 48 hours 01/20/2019, patient seen eval examined during the rounds and labs reviewed medications reviewed critical care time spent 35 minutes, patient remains on ass ist control rate 18 and tidal volume of 500 along with PEEP of 5, patient is sedated with propofol drip but doesn't respond to simple stimuli, patient has been making good amount of urine levo fed is not require S patient is hemodynamically stable urine output has improved to 50-60 mL an hour post Lasix which is advised by nephrology service urine output has improved, patient has been tolerating tube feed well given that volume overload situation due to hypotension and was given fluid for resuscitation patient gently being diuresed, she he remains on broad-spectrum antibiotic sliding scale insulin labs reviewed medications reviewed care plan discussed with the staff and 2 brothers at bedside at length, chest x-ray from today reviewed bilateral atelectasis and fluid overload is present overall suggestive of more of his CHF and pneumonia, white cell count is stable, arterial blood gases improved, BUN/creatinine continue to go up 56 and 4.17, sugars have been stabilized 01/19/2019, patient seen and evaluated examined in the ICU intubated on full ventilator support, patient had gradual loss of consciousness has been more lethargic arterial blood gases were checked shows hypercapnic and hypoxic respiratory failure was intubated in the ICU, patient has been placed on propofol he was volume depleted depleted aggressive fluid resuscitation were performed, is still require levo fed intermittently, patient was also noted to be hypoglycemic 7030 insulin and other oral hypoglycemic agents were discontinued, ultrasound of the abdomen has been performed which is reviewed no obvious hydronephrosis seen, patient has decreased urine output along with rising BUN/creatinine appeared to be acute tubular necrosis, patient also requiring intermittent bolus of D10 for hypoglycemia, wounds has been evaluated by vascular surgery noted recommendation, patient has very poor venous access, will put a central line in, critical care time 45 minutes during procedure, due to altered mental status CT of the head was performed which was negative 01/18/2019, patient seen eval examined while covering for Dr. Granger, waking up this morning slightly slow to respond but not confused, breathing comfortably denies any chest pain labs reviewed today patient has been evaluated by Dr. Bassett, white cell count is coming down to 19,000, lactic acid level is normalized, patient has been on broad-spectrum antibiotics with vascular surgery on board Objective - Vital Signs Vital signs: Vital Signs Temp 98.1 F 01/23/19 12:00 Pulse 67 01/23/19 14:00 Resp 18 01/23/19 14:00 BP 140/62 01/23/19 14:00 Pulse Ox 97 01/23/19 14:00 Intake & Output 01/22/19 01/23/19 01/23/19 18:59 06:59 18:59 Intake Total 976 1106.673 703.554 Output Total 1525 837 330 Balance -549 269.673 373.554 Weight 125.1 kg 125.1 kg Intake: IV 627 376 184 0.9 Normal Saline ( 27 36 24 pressure bag) at 3mL/hr Piperacillin-Tazobactam 3 100 100 .375 gm In Sodium Chloride 0.9% 100 ml @ 25 mls/hr IVPB Q12H [place] Rx# :[id number] Sodium Chloride 0.9% 1, 200 240 160 000 ml @ 20 mls/hr IV . Q24H [place] Rx#:[id number] Intake, IV Titration 300 193.673 67.554 Amount Propofol 1,000 mg In 300 193.673 67.554 Empty Bag 1 bag @ Titrate IV .Q0M [place] Rx#: [id number] Tube Feeding 49 447 392 Other 0 90 60 Output: Urine 875 537 330 Stool 500 300 Estimated Blood Loss 150 Other: Voiding Method Indwelling Catheter Indwelling Catheter Indwelling Catheter ABP, PAP, CO, CI - Last Documented Arterial Blood Pressure 141/47 - Exam Intubated on full vent support on propofol getting IV fluids normal saline due to hypotension one more fluid bolus being given In general patient is alert and oriented 3 while propofol was stopped s HEENT head normocephalic and atraumatic Neck is supple no JVD no goiter no lymphadenopathy Chest exam reveals a few scattered rhonchi no wheezing Cardiac exam reveals regular heart sounds S1 and S2 no gallops no murmurs Abdomen is soft nontender no organomegaly with normal bowel sounds Extremity exam status post right BKA Neuro no gross focal neurological deficit, patient has anisocoria - Labs CBC & Chem 7: 01/23/19 04:10 01/23/19 04:10 Labs: Abnormal Lab Results - Last 24 Hours (Table) 01/22/19 01/22/19 01/22/19 Range/Units 18:21 19:55 23:49 WBC 13.7 H (3.8-10.6) k/uL RBC 3.47 L (4.30-5.90) m/uL Hgb 10.4 L (13.0-17.5) gm/dL Hct 32.1 L (39.0-53.0) % Neutrophils # 12.0 H (1.3-7.7) k/uL Lymphocytes # 0.7 L (1.0-4.8) k/uL ABG pH (7.35-7.45) ABG pO2 (83-108) mmHg ABG HCO3 (21-25) mmol/L Chloride (98-107) mmol/L Carbon Dioxide (22-30) mmol/L BUN (9-20) mg/dL Creatinine (0.66-1.25) mg/dL Glucose (74-99) mg/dL POC Glucose (mg/dL) 180 H 182 H (75-99) mg/dL Calcium (8.4-10.2) mg/dL Phosphorus (2.5-4.5) mg/dL Total Protein (6.3-8.2) g/dL Albumin (3.5-5.0) g/dL 01/23/19 01/23/19 01/23/19 Range/Units 04:10 04:10 05:37 WBC 13.2 H (3.8-10.6) k/uL RBC 3.54 L (4.30-5.90) m/uL Hgb 10.3 L (13.0-17.5) gm/dL Hct 32.7 L (39.0-53.0) % Neutrophils # 11.3 H (1.3-7.7) k/uL Lymphocytes # 0.8 L (1.0-4.8) k/uL ABG pH 7.32 L (7.35-7.45) ABG pO2 79 L (83-108) mmHg ABG HCO3 19 L (21-25) mmol/L Chloride 114 H (98-107) mmol/L Carbon Dioxide 19 L (22-30) mmol/L BUN 60 H (9-20) mg/dL Creatinine 4.82 H (0.66-1.25) mg/dL Glucose 206 H (74-99) mg/dL POC Glucose (mg/dL) (75-99) mg/dL Calcium 7.4 L (8.4-10.2) mg/dL Phosphorus 7.0 H (2.5-4.5) mg/dL Total Protein 5.0 L (6.3-8.2) g/dL Albumin 2.1 L (3.5-5.0) g/dL 01/23/19 01/23/19 01/23/19 Range/Units 06:06 12:16 15:01 WBC (3.8-10.6) k/uL RBC (4.30-5.90) m/uL Hgb (13.0-17.5) gm/dL Hct (39.0-53.0) % Neutrophils # (1.3-7.7) k/uL Lymphocytes # (1.0-4.8) k/uL ABG pH (7.35-7.45) ABG pO2 (83-108) mmHg ABG HCO3 (21-25) mmol/L Chloride (98-107) mmol/L Carbon Dioxide (22-30) mmol/L BUN (9-20) mg/dL Creatinine (0.66-1.25) mg/dL Glucose (74-99) mg/dL POC Glucose (mg/dL) 202 H 252 H 262 H (75-99) mg/dL Calcium (8.4-10.2) mg/dL Phosphorus (2.5-4.5) mg/dL Total Protein (6.3-8.2) g/dL Albumin (3.5-5.0) g/dL Microbiology - Last 24 Hours (Table) 01/19/19 14:20 Blood Culture - Preliminary Blood No Growth after 72 hours Assessment and Plan Assessment: Altered mental status Hypoxic and hypercapnic respiratory failure Acute on chronic renal failure Bilateral atelectasis and possible aspiration pneumonia Fluid overload and acute interstitial edema Severe hypoglycemia 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 Surrounding cellulitis of right foot status post right BKA Sepsis and septic shock Insulin-dependent diabetes mellitus poorly controlled, being started on insulin drip Hypertension hypertensive cardiovascular disease Dyslipidemia Plan: We'll initiate the weaning process starting tomorrow we'll wait for further negative balance patient will be placed on CPAP and pressure support tomorrow and will be observe off of sedation Continue vent support ventilated been adjusted Insulin drip Monitor renal functions closely once patient is negative and renal function improving we will initiate the weaning process Patient observation monitored off of propofol does follow simple commands Will observe and monitor anisocoria Renal consultation and recommendations reviewed Continue gentle diuresis Broad-spectrum antibiotics Critical care time 35 minutes excluding procedure Time with Patient: Greater than 30
[2019-01-23 15:28] LABS: Glucose,Whole Blood 280 mg/dL (75-99)
[2019-01-23 16:01] LABS: Glucose,Whole Blood 184 mg/dL (75-99)
--- NOTE | 2019-01-23 16:03 | P.PN ---
Subjective Progress Note Date: 01/23/19 Patient seen and examined. Patient remains intubated and sedated. No issues overnight per nursing. Patient is status post op day one, right below the knee amputation for wet gangrene. Pt. is afebrile. WBC 13.2, Hg 10.3, Hct 32.7. Objective - Vital Signs Vital signs: Vital Signs Temp 98.1 F 01/23/19 12:00 Pulse 70 01/23/19 15:00 Resp 18 01/23/19 15:00 BP 132/60 01/23/19 15:00 Pulse Ox 98 01/23/19 15:00 Intake & Output 01/22/19 01/23/19 01/23/19 18:59 06:59 18:59 Intake Total 976 1106.673 778.786 Output Total 1525 837 375 Balance -549 269.673 403.786 Weight 125.1 kg 125.1 kg Intake: IV 627 376 207 0.9 Normal Saline ( 27 36 27 pressure bag) at 3mL/hr Piperacillin-Tazobactam 3 100 100 .375 gm In Sodium Chloride 0.9% 100 ml @ 25 mls/hr IVPB Q12H [place] Rx# :[id number] Sodium Chloride 0.9% 1, 200 240 180 000 ml @ 20 mls/hr IV . Q24H [place] Rx#:[id number] Intake, IV Titration 300 193.673 70.786 Amount Insulin Regular 100 unit 3.232 In Sodium Chloride 0.9% 100 ml @ Per Protocol IV .Q0M [place] Rx#:[id number] Propofol 1,000 mg In 300 193.673 67.554 Empty Bag 1 bag @ Titrate IV .Q0M [place] Rx#: [id number] Tube Feeding 49 447 441 Other 0 90 60 Output: Urine 875 537 375 Stool 500 300 Estimated Blood Loss 150 Other: Voiding Method Indwelling Catheter Indwelling Catheter Indwelling Catheter ABP, PAP, CO, CI - Last Documented Arterial Blood Pressure 142/46 - Exam General appearance: In no acute distress, intubated and sedated at this time Heart: S1 S2. Regular rate and rhythm. Lungs: No crackles or wheezes are heard, few scattered rhonchi Extremities: Right lower extremity with dressing and nahun wrap, CDI. - Labs CBC & Chem 7: 01/23/19 04:10 01/23/19 04:10 Labs: Abnormal Lab Results - Last 24 Hours (Table) 01/22/19 01/22/19 01/22/19 Range/Units 18:21 19:55 23:49 WBC 13.7 H (3.8-10.6) k/uL RBC 3.47 L (4.30-5.90) m/uL Hgb 10.4 L (13.0-17.5) gm/dL Hct 32.1 L (39.0-53.0) % Neutrophils # 12.0 H (1.3-7.7) k/uL Lymphocytes # 0.7 L (1.0-4.8) k/uL ABG pH (7.35-7.45) ABG pO2 (83-108) mmHg ABG HCO3 (21-25) mmol/L Chloride (98-107) mmol/L Carbon Dioxide (22-30) mmol/L BUN (9-20) mg/dL Creatinine (0.66-1.25) mg/dL Glucose (74-99) mg/dL POC Glucose (mg/dL) 180 H 182 H (75-99) mg/dL Calcium (8.4-10.2) mg/dL Phosphorus (2.5-4.5) mg/dL Total Protein (6.3-8.2) g/dL Albumin (3.5-5.0) g/dL 01/23/19 01/23/19 01/23/19 Range/Units 04:10 04:10 05:37 WBC 13.2 H (3.8-10.6) k/uL RBC 3.54 L (4.30-5.90) m/uL Hgb 10.3 L (13.0-17.5) gm/dL Hct 32.7 L (39.0-53.0) % Neutrophils # 11.3 H (1.3-7.7) k/uL Lymphocytes # 0.8 L (1.0-4.8) k/uL ABG pH 7.32 L (7.35-7.45) ABG pO2 79 L (83-108) mmHg ABG HCO3 19 L (21-25) mmol/L Chloride 114 H (98-107) mmol/L Carbon Dioxide 19 L (22-30) mmol/L BUN 60 H (9-20) mg/dL Creatinine 4.82 H (0.66-1.25) mg/dL Glucose 206 H (74-99) mg/dL POC Glucose (mg/dL) (75-99) mg/dL Calcium 7.4 L (8.4-10.2) mg/dL Phosphorus 7.0 H (2.5-4.5) mg/dL Total Protein 5.0 L (6.3-8.2) g/dL Albumin 2.1 L (3.5-5.0) g/dL 01/23/19 01/23/19 01/23/19 Range/Units 06:06 12:16 15:01 WBC (3.8-10.6) k/uL RBC (4.30-5.90) m/uL Hgb (13.0-17.5) gm/dL Hct (39.0-53.0) % Neutrophils # (1.3-7.7) k/uL Lymphocytes # (1.0-4.8) k/uL ABG pH (7.35-7.45) ABG pO2 (83-108) mmHg ABG HCO3 (21-25) mmol/L Chloride (98-107) mmol/L Carbon Dioxide (22-30) mmol/L BUN (9-20) mg/dL Creatinine (0.66-1.25) mg/dL Glucose (74-99) mg/dL POC Glucose (mg/dL) 202 H 252 H 262 H (75-99) mg/dL Calcium (8.4-10.2) mg/dL Phosphorus (2.5-4.5) mg/dL Total Protein (6.3-8.2) g/dL Albumin (3.5-5.0) g/dL 01/23/19 Range/Units 15:27 WBC (3.8-10.6) k/uL RBC (4.30-5.90) m/uL Hgb (13.0-17.5) gm/dL Hct (39.0-53.0) % Neutrophils # (1.3-7.7) k/uL Lymphocytes # (1.0-4.8) k/uL ABG pH (7.35-7.45) ABG pO2 (83-108) mmHg ABG HCO3 (21-25) mmol/L Chloride (98-107) mmol/L Carbon Dioxide (22-30) mmol/L BUN (9-20) mg/dL Creatinine (0.66-1.25) mg/dL Glucose (74-99) mg/dL POC Glucose (mg/dL) 280 H (75-99) mg/dL Calcium (8.4-10.2) mg/dL Phosphorus (2.5-4.5) mg/dL Total Protein (6.3-8.2) g/dL Albumin (3.5-5.0) g/dL Microbiology - Last 24 Hours (Table) 01/19/19 14:20 Blood Culture - Preliminary Blood No Growth after 72 hours Assessment and Plan Assessment: Status post right below the knee amputation for wet gangrene, inability to wean from ventilator Status post right foot fourth and fifth toe amputation Acute kidney failure, nephrology on consult wet gangrene right fifth toe uncontrolled type 2 diabetes previous amputation for infected gangrene toe on the left foot hyperlipidemia hypertension previous MA Plan: Patient currently remains intubated and sedated in the ICU. Continue supportive care. Dressing changes as ordered. The above dictated assessment and findings were discussed with Dr. Funez. The impression and plan of care have been directed as dictated.
[2019-01-23 17:04] LABS: Glucose,Whole Blood 236 mg/dL (75-99)
[2019-01-23 18:02] LABS: Glucose,Whole Blood 207 mg/dL (75-99)
[2019-01-23 19:10] LABS: Glucose,Whole Blood 200 mg/dL (75-99)
[2019-01-23 20:07] LABS: Glucose,Whole Blood 180 mg/dL (75-99)
[2019-01-23 21:02] LABS: Glucose,Whole Blood 180 mg/dL (75-99)
[2019-01-23] MEDS: LATANOPROST 0.005% OPHTH DROPS 2.5 ML BTL LEFT EYE SCH (21:34)
[2019-01-23 22:06] LABS: Glucose,Whole Blood 159 mg/dL (75-99)
[2019-01-23 23:01] LABS: Glucose,Whole Blood 146 mg/dL (75-99)
[2019-01-23 23:54] LABS: Glucose,Whole Blood 142 mg/dL (75-99)
[2019-01-24 01:22] LABS: Glucose,Whole Blood 139 mg/dL (75-99)
[2019-01-24 02:00] LABS: Glucose,Whole Blood 143 mg/dL (75-99)
[2019-01-24 03:05] LABS: Glucose,Whole Blood 166 mg/dL (75-99)
[2019-01-24 04:15] LABS: Glucose,Whole Blood 155 mg/dL (75-99)
[2019-01-24 05:00] LABS: Glucose,Whole Blood 173 mg/dL (75-99)
[2019-01-24 05:41] LABS: HCT 29.6 % (39.0-53.0); HGB 9.6 gm/dL (13.0-17.5); Hypochromasia Slight; MCH 30.1 pg (25.0-35.0); MCHC 32.5 g/dL (31.0-37.0); MCV 92.4 fL (80.0-100.0); Mean Platelet Volume 9.9; Platelet Count 258 k/uL (150-450); RDW 12.4 % (11.5-15.5); WBC 14.1 k/uL (3.8-10.6)
[2019-01-24 05:51] LABS: Calcium 7.6 mg/dL (8.4-10.2); Potassium 4.1 mmol/L (3.5-5.1)
[2019-01-24 06:09] LABS: Glucose,Whole Blood 158 mg/dL (75-99)
[2019-01-24] MEDS: PIPERACILLIN-TAZOBACTAM 3.375 GM in SODIUM CHLORIDE 0.9% 100 ML IVPB SCH ×2 (06:36→17:13)
[2019-01-24 07:01] LABS: Glucose,Whole Blood 159 mg/dL (75-99)
[2019-01-24 07:56] LABS: ABG Base Excess -7.2 mmol/L; ABG HCO3 19 mmol/L (21-25); ABG Oxygen Saturation 98.2 % (94-97); ABG PCO2 38 mmHg (35-45); ABG PH 7.31 (7.35-7.45); ABG PO2 111 mmHg (83-108); ABG TCO2 20 mmol/L (19-24); Allen Test Performed? Yes
[2019-01-24 08:55] LABS: Glucose,Whole Blood 170 mg/dL (75-99)
[2019-01-24] MEDS: PANTOPRAZOLE 40 MG/10 ML VIAL IV SCH (09:01)
[2019-01-24] MEDS: CHLORHEXIDINE GLUCONATE 15 ML CUP MUCOUS MEM SCH ×2 (09:01→20:06)
[2019-01-24] MEDS: HEPARIN SODIUM,PORCINE 5,000 UNIT/ML 1 ML VIAL SQ SCH ×3 (09:01→23:45)
[2019-01-24] MEDS: DORZOLAMIDE HCL 2% DROPS 10 ML BTL LEFT EYE SCH ×3 (09:01→21:04)
[2019-01-24] MEDS: FLUoxetine HCL 20 MG CAP PO SCH (09:01)
[2019-01-24] MEDS: GABAPENTIN 100 MG CAP PO SCH ×3 (09:01→21:49)
[2019-01-24] MEDS: TIMOLOL 0.5% OPHTH DROPS 5 ML BTL LEFT EYE SCH ×2 (09:02→20:15)
[2019-01-24] MEDS: BRIMONIDINE TARTRATE 0.2% DROPS 5 ML BTL LEFT EYE SCH ×3 (09:02→22:08)
[2019-01-24] MEDS: PROPOFOL 1,000 MG in EMPTY BAG 1 BAG IV SCH ×3 (09:03→19:55)
[2019-01-24] MEDS: SODIUM CHLORIDE 0.9% 1,000 ML IV SCH ×2 (09:03→20:02)
--- NOTE | 2019-01-24 10:14 | XR ---
EXAMINATION TYPE: XR chest 1V portable DATE OF EXAM: 01/24/2019 COMPARISON: 01/23/2019 HISTORY: Shortness of breath FINDINGS: There are bilateral pleural effusions with cardiomegaly and bibasilar infiltrate. There is a diffuse interstitial pattern. ET tube and NG tube stable. Central line stable. Atherosclerotic change aorta. IMPRESSION: 1. Diffuse pleural-parenchymal changes most suggestive of CHF. Underlying pneumonia not excluded.
--- NOTE | 2019-01-24 10:45 | P.PN ---
Subjective Progress Note Date: 01/24/19 Refugio Saenz, is a 68-year-old male who presented to [facility] emergency room with pain in the right foot, he was evaluated in emergency room and had blackish discoloration of the right fifth toe with surrounding erythema and tenderness, patient was started on IV antibiotics Zosyn, vancomycin, and clindamycin, he was admitted to medical floor vascular surgery consultation was requested for possible amputation due to evidence of gangrene. Infectious disease consultation was requested. Patient has a known history of insulin-dependent diabetes mellitus, his glucose level was well controlled up until September of this year his A1c in June was 7.1 and in September was 7.3 however apparently patient stopped taking his insulin and his medications and his A1c was up to 9.8 in November, he has a known history of right foot ulcer he was admitted to the hospital with right foot cellulitis and ulcer in 2014 and he was followed at the wound care clinic in 2015 however he was doing well up until recently. Patient also has a known history of hypertension, hyperlipidemia, he denies any history of coronary artery disease or congestive heart failure, he had an echocardiogram done in 2014 at that time he had normal left ventricular function was normal ejection fraction, no significant valvular disease and no pulmonary hypertension. 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 On 01/17/2019 patient's alert and oriented 3. Patient had fourth and fifth toe amputation with Dr. Bustillos this morning. Patient having some low blood pressure will give 500 mL bolus. Patient denies chest pain or shortness of breath. Patient denies nausea vomiting or diarrhea. Patient is having some increased pain to foot area pain medications ordered 01/18/2019, patient seen eval examined while covering for Dr. Granger, waking up this morning slightly slow to respond but not confused, breathing comfortably denies any chest pain labs reviewed today patient has been evaluated by Dr. Bassett, white cell count is coming down to 19,000, lactic acid level is normalized, patient has been on broad-spectrum antibiotics with vascular surgery on board 01/19/2019, patient seen and evaluated examined in the ICU intubated on full ventilator support, patient had gradual loss of consciousness has been more lethargic arterial blood gases were checked shows hypercapnic and hypoxic respiratory failure was intubated in the ICU, patient has been placed on propo fol he was volume depleted depleted aggressive fluid resuscitation were performed, is still requiring levophed intermittently, patient was also noted to be hypoglycemic 7030 insulin and other oral hypoglycemic agents were discontinued, ultrasound of the abdomen has been performed which is reviewed no obvious hydronephrosis seen, patient has decreased urine output along with rising BUN/creatinine appeared to be acute tubular necrosis, patient also requiring intermittent bolus of D10 for hypoglycemia, wounds has been evaluated by vascular surgery noted recommendation, patient has very poor venous access, will put a central line in, critical care time 45 minutes during procedure, due to altered mental status CT of the head was performed which was negative On 01/20/2019 patient remains in the intensive care unit on mechanical ventilation. Levophed has been on hold blood pressures has sustained. Creatinine has increased to 4.17 and bun 56. Nephrology services are following. Per nursing staff patient does follow commands during sedation holiday ABGs have improved. Discussed case with vascular surgeon nurse practitioner possible BKA discussion. White blood cell decreasing to 16.0. Critical care services are following. Patient remains on Zosyn for IV antibiotics. Infectious disease following 01/21/2019 patient remains on mechanical ventilation on in the intensive care unit. Patient remains sedated, on propofol. However per nursing staff patient does follow commands during sedation holiday. Patient is on 50% FiO2, 5 PEEP, tidal volume 500. Levophed off since 01/20/20. Blood pressure remains in the 130's-150's systolic. Creatinine 4.35 from 4.17 and BUN 57 from 56, Calcium 7.0, phosphorus 5.9 Nephrology is following. Orogastric tube replaced this morning. Per nursing staff OG tube was coiled in patient's mouth with tube feeds running. Chest x-ray repeated, no significant change from previous. ABG improving, still metabolic acidosis. WBC of 14.1 down from 16. Afebrile. Infectious disease is following patient is maintained on Zosyn. Will send C. diff sample due to new onset diarrhea for 1 day. Hyperglycemia noted (glucose 200's). Will discuss tube feed formula with dietary. If no changes can be made will adjust sliding scale. On 01/22/2019 patient remains sedated on mechanical ventilation in the intensive care unit. Per nursing staff patient is to have a BKA today with Dr. Bustillos. Patient remains off pressors, blood pressure has been stable. Chest x-ray repeated this morning, per pulmonary. No significant change in ABGs. Creatinine continues to increase, 4.84 today BUN 60, patient is still making adequate urine output nephrology is following. Tube feeds on hold, for pending OR. WBC 14.2, temperature overnight 100F. Please is following patient is maintained on Zosyn. C. diff sample was negative. 01/23/2019 patient remains sedated and on mechanical ventilation in the ICU. He underwent right BKA yesterday, 01/22/[address] Bustillos. Estimated blood loss 150 mL. He had a temp of 100 last night. Urine output is about 50 mL per hour. Creatinine has gone down from 4.84-4.82. Nephrology is following closely. No plans for hemodialysis yet. Patient's blood sugars are starting to become more elevated. They're in the 180s to 200s. Tube feedings are being adjusted. White count 13.7 hemoglobin 10.3 On 01/24/2019 patient remains sedated on mechanical ventilation in the intensive care unit. Decreased urine output throughout night. Creatinine 5.15 and bun 68. Patient remains on insulin drip. WBC 14.1. Patient having low-grade temps. Patient remains closely followed by critical care consulting providers Objective - Vital Signs Vital signs: Vital Signs Temp 99.3 F 01/24/19 08:00 Pulse 70 01/24/19 09:00 Resp 23 01/24/19 09:00 BP 155/70 01/24/19 09:00 Pulse Ox 96 01/24/19 09:00 Intake & Output 01/23/19 01/24/19 01/24/19 18:59 06:59 18:59 Intake Total 7080.390 4888.896 283.027 Output Total 480 400 215 Balance 763.816 704.896 68.027 Weight 125.1 kg 124.4 kg Intake: IV 376 276 219 0.9 Normal Saline ( 36 36 9 pressure bag) at 3mL/hr Piperacillin-Tazobactam 3 100 150 .375 gm In Sodium Chloride 0.9% 100 ml @ 25 mls/hr IVPB Q12H [place] Rx# :[id number] Sodium Chloride 0.9% 1, 240 240 60 000 ml @ 20 mls/hr IV . Q24H [place] Rx#:[id number] Intake, IV Titration 189.816 150.896 15.027 Amount Insulin Regular 100 unit 22.262 50.896 7.424 In Sodium Chloride 0.9% 100 ml @ Per Protocol IV .Q0M [place] Rx#:[id number] Propofol 1,000 mg In 167.554 100 7.603 Empty Bag 1 bag @ Titrate IV .Q0M [place] Rx#: [id number] Tube Feeding 588 588 49 Other 90 90 Output: Urine 480 400 215 Other: Voiding Method Indwelling Catheter Indwelling Catheter ABP, PAP, CO, CI - Last Documented Arterial Blood Pressure 150/47 - Exam Patient sedated this morning. Full neuro exam unable to obtain HEENT head normocephalic and atraumatic Neck is supple no JVD no goiter no lymphadenopathy Chest exam reveals diminished lung sounds, a few scattered rhonchi no wheezing Cardiac exam reveals regular heart sounds S1 and S2 no gallops no murmurs Abdomen is obese, soft nontender no organomegaly with normal bowel sounds Extremity exam reveals surgical site with nonpurulent drainage, wound bed moist red and jiménez. Good capillary Refill of the right remaining toes Neuro no gross focal neurological deficit. - Labs CBC & Chem 7: 01/24/19 04:50 01/24/19 04:50 Labs: Abnormal Lab Results - Last 24 Hours (Table) 01/23/19 01/23/19 01/23/19 Range/Units 12:16 15:01 15:27 WBC (3.8-10.6) k/uL RBC (4.30-5.90) m/uL Hgb (13.0-17.5) gm/dL Hct (39.0-53.0) % ABG pH (7.35-7.45) ABG pO2 (83-108) mmHg ABG HCO3 (21-25) mmol/L ABG O2 Saturation (94-97) % Chloride (98-107) mmol/L Carbon Dioxide (22-30) mmol/L BUN (9-20) mg/dL Creatinine (0.66-1.25) mg/dL Glucose (74-99) mg/dL POC Glucose (mg/dL) 252 H 262 H 280 H (75-99) mg/dL Calcium (8.4-10.2) mg/dL 01/23/19 01/23/19 01/23/19 Range/Units 15:59 17:03 18:00 WBC (3.8-10.6) k/uL RBC (4.30-5.90) m/uL Hgb (13.0-17.5) gm/dL Hct (39.0-53.0) % ABG pH (7.35-7.45) ABG pO2 (83-108) mmHg ABG HCO3 (21-25) mmol/L ABG O2 Saturation (94-97) % Chloride (98-107) mmol/L Carbon Dioxide (22-30) mmol/L BUN (9-20) mg/dL Creatinine (0.66-1.25) mg/dL Glucose (74-99) mg/dL POC Glucose (mg/dL) 184 H 236 H 207 H (75-99) mg/dL Calcium (8.4-10.2) mg/dL 01/23/19 01/23/19 01/23/19 Range/Units 19:08 20:05 21:00 WBC (3.8-10.6) k/uL RBC (4.30-5.90) m/uL Hgb (13.0-17.5) gm/dL Hct (39.0-53.0) % ABG pH (7.35-7.45) ABG pO2 (83-108) mmHg ABG HCO3 (21-25) mmol/L ABG O2 Saturation (94-97) % Chloride (98-107) mmol/L Carbon Dioxide (22-30) mmol/L BUN (9-20) mg/dL Creatinine (0.66-1.25) mg/dL Glucose (74-99) mg/dL POC Glucose (mg/dL) 200 H 180 H 180 H (75-99) mg/dL Calcium (8.4-10.2) mg/dL 01/23/19 01/23/19 01/23/19 Range/Units 22:05 22:59 23:52 WBC (3.8-10.6) k/uL RBC (4.30-5.90) m/uL Hgb (13.0-17.5) gm/dL Hct (39.0-53.0) % ABG pH (7.35-7.45) ABG pO2 (83-108) mmHg ABG HCO3 (21-25) mmol/L ABG O2 Saturation (94-97) % Chloride (98-107) mmol/L Carbon Dioxide (22-30) mmol/L BUN (9-20) mg/dL Creatinine (0.66-1.25) mg/dL Glucose (74-99) mg/dL POC Glucose (mg/dL) 159 H 146 H 142 H (75-99) mg/dL Calcium (8.4-10.2) mg/dL 01/24/19 01/24/19 01/24/19 Range/Units 01:20 01:58 03:03 WBC (3.8-10.6) k/uL RBC (4.30-5.90) m/uL Hgb (13.0-17.5) gm/dL Hct (39.0-53.0) % ABG pH (7.35-7.45) ABG pO2 (83-108) mmHg ABG HCO3 (21-25) mmol/L ABG O2 Saturation (94-97) % Chloride (98-107) mmol/L Carbon Dioxide (22-30) mmol/L BUN (9-20) mg/dL Creatinine (0.66-1.25) mg/dL Glucose (74-99) mg/dL POC Glucose (mg/dL) 139 H 143 H 166 H (75-99) mg/dL Calcium (8.4-10.2) mg/dL 01/24/19 01/24/19 01/24/19 Range/Units 04:14 04:50 04:50 WBC 14.1 H (3.8-10.6) k/uL RBC 3.20 L (4.30-5.90) m/uL Hgb 9.6 L (13.0-17.5) gm/dL Hct 29.6 L (39.0-53.0) % ABG pH (7.35-7.45) ABG pO2 (83-108) mmHg ABG HCO3 (21-25) mmol/L ABG O2 Saturation (94-97) % Chloride 116 H (98-107) mmol/L Carbon Dioxide 18 L (22-30) mmol/L BUN 68 H (9-20) mg/dL Creatinine 5.15 H (0.66-1.25) mg/dL Glucose 166 H (74-99) mg/dL POC Glucose (mg/dL) 155 H (75-99) mg/dL Calcium 7.6 L (8.4-10.2) mg/dL 01/24/19 01/24/19 01/24/19 Range/Units 04:57 06:06 06:59 WBC (3.8-10.6) k/uL RBC (4.30-5.90) m/uL Hgb (13.0-17.5) gm/dL Hct (39.0-53.0) % ABG pH (7.35-7.45) ABG pO2 (83-108) mmHg ABG HCO3 (21-25) mmol/L ABG O2 Saturation (94-97) % Chloride (98-107) mmol/L Carbon Dioxide (22-30) mmol/L BUN (9-20) mg/dL Creatinine (0.66-1.25) mg/dL Glucose (74-99) mg/dL POC Glucose (mg/dL) 173 H 158 H 159 H (75-99) mg/dL Calcium (8.4-10.2) mg/dL 01/24/19 01/24/19 Range/Units 07:51 08:53 WBC (3.8-10.6) k/uL RBC (4.30-5.90) m/uL Hgb (13.0-17.5) gm/dL Hct (39.0-53.0) % ABG pH 7.31 L (7.35-7.45) ABG pO2 111 H (83-108) mmHg ABG HCO3 19 L (21-25) mmol/L ABG O2 Saturation 98.2 H (94-97) % Chloride (98-107) mmol/L Carbon Dioxide (22-30) mmol/L BUN (9-20) mg/dL Creatinine (0.66-1.25) mg/dL Glucose (74-99) mg/dL POC Glucose (mg/dL) 170 H (75-99) mg/dL Calcium (8.4-10.2) mg/dL Microbiology - Last 24 Hours (Table) 01/19/19 14:20 Blood Culture - Preliminary Blood No Growth after 96 hours Assessment and Plan Assessment: #1 gangrene involving the right fifth toe with surrounding cellulitis Status post amputation of fourth and fifth toe with Dr. Bustillos. Patient is currently postop day 4. Possible discussion of below knee amputation rather than attempt at possible revascularization. Arterial Doppler completed, ALMA of the right 0.79. Per nursing staff patient is to have a BKA today with Dr. Bustillos. #2 sepsis present on admission as evidenced by fever, leukocytosis, and elevated lactic acid. White blood cell improving to 14.2 from 16. Lactic acid normalized, 0.7. Infectious disease is following. Patient remains on Zosyn for IV antibiotics #3 acute hypoxic and hypercapnic respiratory failure with altered mental status changes secondary to severe sepsis. Patient was transferred to the intensive care unit and placed on mechanical ventilation. Patient is sedated on propofol . Per nursing staff patient is following commands . Vent things 50 FiO2, PEEP 5. 500 tidal volume, rate 18. Critical care services are following. #4. Hypotension secondary to septic shock. Levophed currently off. Blood pressure has improved, systolic 130s to 150s. #5. Acute kidney injury secondary to ATN secondary to hypotension as well as vancomycin toxicity. Nephrology services are following. Ultrasound completed showing no evidence of hydronephrosis. Creatinine increasing to 4. 35 and bun 57. Per nephrology services maintain 0.9 normal saline at 50/ml, avoid nephrotoxins. Vancomycin and lisinopril have been discontinued. continue to monitor urine output closely. Per nephrology discussion was held with family for possible renal replacement therapy. Diuretics on hold per nephrology services #6. history of essential hypertension. Cardiology services following. EF 50- 55%. Per cardiology services no evidence of acute coronary syndrome at this time #7. insulin-dependent diabetes mellitus, with poor control due to noncompliance last hemoglobin A1c was 9.8 at this time will hold glipizide, Januvia and metformin, and cover was insulin to sliding scale will adjust medications as needed. Blood sugars have been in the 200s after episode of hypoglycemia. Patient currently on insulin drip for tight blood sugar control #8. underlying history of diabetic complications of peripheral neuropathy and retinopathy. #9. poor compliance with medical management, patient had extensive counseling in the last year, his A1c was down to 7.1 in June however it was up to 9.8 again recently. #10 underlying history of hyperlipidemia maintained on atorvastatin, on hold. #11. Hypoglycemia. Home meds DC'd. Tube feedings have been initiated. Hypoglycemia has resolved #12. Suspected aspiration. Orogastric tube was coiled in the patient's mouth with tube feeds running. Tube was removed and replaced. Chest x-ray completed. Overall stable findings, no significant change from prior, bilateral small pleural effusions noted, CHF exacerbation versus fluid overload state. Repeat chest x-ray today per pulmonary. No acute changes made, no change in ABG. Infectious disease is following. DVT prophylaxis heparin. GI prophylaxis Protonix Patient remains in the intensive care unit on mechanical ventilation Critical care, vascular surgery, infectious disease, cardiology and nephrology services following I performed an examination of the patient and discussed their management with the Nurse Practitioner. I have reviewed the Nurse Practitioner's notes and agree with the documented findings and plan of care
[2019-01-24 10:51] LABS: Glucose,Whole Blood 162 mg/dL (75-99)
[2019-01-24 12:18] LABS: Glucose,Whole Blood 174 mg/dL (75-99)
--- NOTE | 2019-01-24 12:40 | P.OP ---
Date of Procedure: 01/24/19 Operative Findings: Preoperative diagnosis: Acute renal failure, worsening, diabetes, right foot wet gangrene status post below-knee amputation Postoperative diagnosis: Same Procedure: Ultrasound-guided access of the left common femoral vein, placement of temporary dialysis catheter left common femoral vein Surgeon: Toshia Bustillos D.O. EBL: Less than 5 mL IV fluids: Not measured Urine output: Bustillos in place Drains: [none Complications: [None immediately apparent] Condition: [Remains critical in the ICU] Operative indication and findings: [The patient is a 60-year-old male who initially presented for wet gangrene of his right 4 and fifth toes. He subsequently went to the operating room for amputation and followed below-knee amputation due to continued infectious process. He is remained on the ventilator and has had worsening renal function. Today on rounds per nephrology was recommended he undergo renal replacement therapy therefore we were asked to place a temporary dialysis catheter] Procedure in detail: [The patient was seen in his ICU room, previous consent form was obtained via telephone from the patient's and he was laid flat. The left groin was prepped and draped in usual sterile fashion. A procedural timeout was performed, all parties are in agreement. The ultrasound was utilized in the common femoral vein was identified. The skin overlying was anesthetized with 1% lidocaine plain. Ultrasound was utilized and a multipurpose needle was used to cannulate the common femoral vein on first attempt. Utilizing Seldinger technique serial dilators were placed followed by a previous A flushed 20 cm dialysis catheter. The port aspirated and flushed freely. The catheter was sutured in place. Heparinized solution was placed. A dressing was placed. The patient tolerated the procedure well.]
[2019-01-24 12:54] LABS: Glucose,Whole Blood 167 mg/dL (75-99)
[2019-01-24] MEDS: MORPHINE SULFATE 2 MG/ML SYRINGE IVP PRN (12:54)
[2019-01-24] MEDS: NOREPINEPHRINE 4 MG in SODIUM CHLORIDE 0.9% 250 ML IV SCH ×2 (12:58→23:42)
[2019-01-24] MEDS: INSULIN REGULAR 100 UNIT in SODIUM CHLORIDE 0.9% 100 ML IV SCH (14:08)
[2019-01-24 14:12] LABS: Glucose,Whole Blood 171 mg/dL (75-99)
--- NOTE | 2019-01-24 14:51 | P.PN ---
Subjective Progress Note Date: 01/24/19 Patient seen and examined. Patient remains intubated and sedated. Kidney function worsening. Patient is status post op day two, right below the knee amputation for wet gangrene. Pt. is afebrile. Dressing is CDI. Objective - Vital Signs Vital signs: Vital Signs Temp 99.0 F 01/24/19 12:00 Pulse 65 01/24/19 14:00 Resp 18 01/24/19 14:00 BP 140/64 01/24/19 14:00 Pulse Ox 97 01/24/19 14:00 Intake & Output 01/23/19 01/24/19 01/24/19 18:59 06:59 18:59 Intake Total 8485.895 5933.896 556.924 Output Total 480 400 365 Balance 763.816 704.896 191.924 Weight 125.1 kg 124.4 kg Intake: IV 376 276 284 0.9 Normal Saline ( 36 36 24 pressure bag) at 3mL/hr Piperacillin-Tazobactam 3 100 100 .375 gm In Sodium Chloride 0.9% 100 ml @ 25 mls/hr IVPB Q12H [place] Rx# :[id number] Sodium Chloride 0.9% 1, 240 240 160 000 ml @ 20 mls/hr IV . Q24H [place] Rx#:[id number] Intake, IV Titration 189.816 150.896 125.924 Amount Insulin Regular 100 unit 22.262 50.896 25.924 In Sodium Chloride 0.9% 100 ml @ Per Protocol IV .Q0M [place] Rx#:[id number] Propofol 1,000 mg In 167.554 100 100.000 Empty Bag 1 bag @ Titrate IV .Q0M [place] Rx#: [id number] Tube Feeding 588 588 147 Other 90 90 Output: Urine 480 400 365 Other: Voiding Method Indwelling Catheter Indwelling Catheter Indwelling Catheter ABP, PAP, CO, CI - Last Documented Arterial Blood Pressure 143/51 - Exam General appearance: In no acute distress, intubated and sedated at this time Heart: S1 S2. Regular rate and rhythm. Lungs: No crackles or wheezes are heard, few scattered rhonchi Extremities: Right lower extremity with dressing and martin wrap, removed. Surgical site with robert, mild expected swelling, with small amount of serosanguineous drainage. Clean dressing applied with Martin wrap. - Labs CBC & Chem 7: 01/24/19 04:50 01/24/19 04:50 Labs: Abnormal Lab Results - Last 24 Hours (Table) 01/23/19 01/23/19 01/23/19 Range/Units 15:01 15:27 15:59 WBC (3.8-10.6) k/uL RBC (4.30-5.90) m/uL Hgb (13.0-17.5) gm/dL Hct (39.0-53.0) % ABG pH (7.35-7.45) ABG pO2 (83-108) mmHg ABG HCO3 (21-25) mmol/L ABG O2 Saturation (94-97) % Chloride (98-107) mmol/L Carbon Dioxide (22-30) mmol/L BUN (9-20) mg/dL Creatinine (0.66-1.25) mg/dL Glucose (74-99) mg/dL POC Glucose (mg/dL) 262 H 280 H 184 H (75-99) mg/dL Calcium (8.4-10.2) mg/dL 01/23/19 01/23/19 01/23/19 Range/Units 17:03 18:00 19:08 WBC (3.8-10.6) k/uL RBC (4.30-5.90) m/uL Hgb (13.0-17.5) gm/dL Hct (39.0-53.0) % ABG pH (7.35-7.45) ABG pO2 (83-108) mmHg ABG HCO3 (21-25) mmol/L ABG O2 Saturation (94-97) % Chloride (98-107) mmol/L Carbon Dioxide (22-30) mmol/L BUN (9-20) mg/dL Creatinine (0.66-1.25) mg/dL Glucose (74-99) mg/dL POC Glucose (mg/dL) 236 H 207 H 200 H (75-99) mg/dL Calcium (8.4-10.2) mg/dL 01/23/19 01/23/19 01/23/19 Range/Units 20:05 21:00 22:05 WBC (3.8-10.6) k/uL RBC (4.30-5.90) m/uL Hgb (13.0-17.5) gm/dL Hct (39.0-53.0) % ABG pH (7.35-7.45) ABG pO2 (83-108) mmHg ABG HCO3 (21-25) mmol/L ABG O2 Saturation (94-97) % Chloride (98-107) mmol/L Carbon Dioxide (22-30) mmol/L BUN (9-20) mg/dL Creatinine (0.66-1.25) mg/dL Glucose (74-99) mg/dL POC Glucose (mg/dL) 180 H 180 H 159 H (75-99) mg/dL Calcium (8.4-10.2) mg/dL 01/23/19 01/23/19 01/24/19 Range/Units 22:59 23:52 01:20 WBC (3.8-10.6) k/uL RBC (4.30-5.90) m/uL Hgb (13.0-17.5) gm/dL Hct (39.0-53.0) % ABG pH (7.35-7.45) ABG pO2 (83-108) mmHg ABG HCO3 (21-25) mmol/L ABG O2 Saturation (94-97) % Chloride (98-107) mmol/L Carbon Dioxide (22-30) mmol/L BUN (9-20) mg/dL Creatinine (0.66-1.25) mg/dL Glucose (74-99) mg/dL POC Glucose (mg/dL) 146 H 142 H 139 H (75-99) mg/dL Calcium (8.4-10.2) mg/dL 01/24/19 01/24/19 01/24/19 Range/Units 01:58 03:03 04:14 WBC (3.8-10.6) k/uL RBC (4.30-5.90) m/uL Hgb (13.0-17.5) gm/dL Hct (39.0-53.0) % ABG pH (7.35-7.45) ABG pO2 (83-108) mmHg ABG HCO3 (21-25) mmol/L ABG O2 Saturation (94-97) % Chloride (98-107) mmol/L Carbon Dioxide (22-30) mmol/L BUN (9-20) mg/dL Creatinine (0.66-1.25) mg/dL Glucose (74-99) mg/dL POC Glucose (mg/dL) 143 H 166 H 155 H (75-99) mg/dL Calcium (8.4-10.2) mg/dL 01/24/19 01/24/19 01/24/19 Range/Units 04:50 04:50 04:57 WBC 14.1 H (3.8-10.6) k/uL RBC 3.20 L (4.30-5.90) m/uL Hgb 9.6 L (13.0-17.5) gm/dL Hct 29.6 L (39.0-53.0) % ABG pH (7.35-7.45) ABG pO2 (83-108) mmHg ABG HCO3 (21-25) mmol/L ABG O2 Saturation (94-97) % Chloride 116 H (98-107) mmol/L Carbon Dioxide 18 L (22-30) mmol/L BUN 68 H (9-20) mg/dL Creatinine 5.15 H (0.66-1.25) mg/dL Glucose 166 H (74-99) mg/dL POC Glucose (mg/dL) 173 H (75-99) mg/dL Calcium 7.6 L (8.4-10.2) mg/dL 01/24/19 01/24/19 01/24/19 Range/Units 06:06 06:59 07:51 WBC (3.8-10.6) k/uL RBC (4.30-5.90) m/uL Hgb (13.0-17.5) gm/dL Hct (39.0-53.0) % ABG pH 7.31 L (7.35-7.45) ABG pO2 111 H (83-108) mmHg ABG HCO3 19 L (21-25) mmol/L ABG O2 Saturation 98.2 H (94-97) % Chloride (98-107) mmol/L Carbon Dioxide (22-30) mmol/L BUN (9-20) mg/dL Creatinine (0.66-1.25) mg/dL Glucose (74-99) mg/dL POC Glucose (mg/dL) 158 H 159 H (75-99) mg/dL Calcium (8.4-10.2) mg/dL 01/24/19 01/24/19 01/24/19 Range/Units 08:53 10:50 12:04 WBC (3.8-10.6) k/uL RBC (4.30-5.90) m/uL Hgb (13.0-17.5) gm/dL Hct (39.0-53.0) % ABG pH (7.35-7.45) ABG pO2 (83-108) mmHg ABG HCO3 (21-25) mmol/L ABG O2 Saturation (94-97) % Chloride (98-107) mmol/L Carbon Dioxide (22-30) mmol/L BUN (9-20) mg/dL Creatinine (0.66-1.25) mg/dL Glucose (74-99) mg/dL POC Glucose (mg/dL) 170 H 162 H 174 H (75-99) mg/dL Calcium (8.4-10.2) mg/dL 01/24/19 01/24/19 Range/Units 12:52 14:10 WBC (3.8-10.6) k/uL RBC (4.30-5.90) m/uL Hgb (13.0-17.5) gm/dL Hct (39.0-53.0) % ABG pH (7.35-7.45) ABG pO2 (83-108) mmHg ABG HCO3 (21-25) mmol/L ABG O2 Saturation (94-97) % Chloride (98-107) mmol/L Carbon Dioxide (22-30) mmol/L BUN (9-20) mg/dL Creatinine (0.66-1.25) mg/dL Glucose (74-99) mg/dL POC Glucose (mg/dL) 167 H 171 H (75-99) mg/dL Calcium (8.4-10.2) mg/dL Microbiology - Last 24 Hours (Table) 01/19/19 14:20 Blood Culture - Preliminary Blood No Growth after 96 hours Assessment and Plan Assessment: Status post right below the knee amputation for wet gangrene, inability to wean from ventilator Status post right foot fourth and fifth toe amputation Acute kidney failure, worsening. Nephrology on consult wet gangrene right fifth toe uncontrolled type 2 diabetes previous amputation for infected gangrene toe on the left foot hyperlipidemia hypertension previous [place] Plan: Patient currently remains intubated and sedated in the ICU. Continue supportive care. Dressing changes as ordered. Awaiting input from nephrology related to worsening kidney function The above dictated assessment and findings were discussed with Dr. Bustillos The impression and plan of care have been directed as dictated.
--- NOTE | 2019-01-24 15:02 | P.PN ---
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, poor compliance, dyslipidemia, dehydration 01/24/2019, patient seen elizabeth reexamined during the rounds critical care time 35 minutes, patient has a weaning attempt with CPAP and pressure support but was not completed as patient is due for hemodialysis catheter placement in right femoral vein the renal service thinking about hemodialysis tomorrow breathing remains stable patient remains on assist control rate of 18 FiO2 of 50% 5 of PEEP, and renal function continued to deteriorate gradually being output slowly declining 01/23/2019, patient seen elizabeth examined during the rounds labs reviewed medications reviewed care plan discussed with the staff at length and had a short weaning attempt and a sedation holiday with which he tolerated for short period of time then becomes tachypneic put back on respirator fit. We'll patient has been diuresing fairly well has been negative for the first time, urine output of 30-40 mL an hour. BUN/creatinine remains stable, patient is postop day #1 of the BKA, chest x-ray from today reviewed findings are most suggestive of fluid overload less likely to be pneumonia, the ET tube and osmar tral line and NG tube was stable, white cell count is 13,000 arterial blood gases remained stable, BUN/creatinine gradually going up is 60 and 4.8 to, sugar is running on the higher side last check sugar was over 260 patient is being started on insulin drip 01/21/2019, patient seen and evaluated examined during the rounds labs reviewed medications reviewed, patient the remains on sedation with propofol mildly sedated he does wake up follow simple commands and munira -1-2, he remains on IV fluids gently being rehydrated 50 mL an hour to feed is being given this morning patient noted to have a tube coiling in the mouth as He is to have pulled out late morning hours, the need to be has been placed position has been confirmed chest x-ray continued to show for evidence of fluid overload and this should edema along with possible infiltrate, he remains on assist control rate of 18 and tidal volume of 505 of PEEP and oxygen is 50% he is +1.2 L since morning, care plan discussed with nephrology as well as the vascular surgery, as his BUN and creatinine continued to go up creatinine is 5.1 in spite of good adequate urine output, patient continue on broad-spectrum antibiotic when setting remains stable respiratory secretions are still thick tenacious and appears to be improving slowly, blood cultures and sputum culture has been negative, need to make eyes and nose on the negative side as well as would like to see been function improving before consideration of weaning that anticipate will take another 24-48 hours 01/20/2019, patient seen eval examined during the rounds and labs reviewed medications reviewed critical care time spent 35 minutes, patient remains on assist control rate 18 and tidal volume of 500 along with PEEP of 5, patient is sedated with propofol drip but doesn't respond to simple stimuli, patient has been making good amount of urine levo fed is not require S patient is hemodynamically stable urine output has improved to 50-60 mL an hour post Lasix which is advised by nephrology service urine output has improved, patient has been tolerating tube feed well given that volume overload situation due to hypotension and was given fluid for resuscitation patient gently being diuresed, she he remains on broad-spectrum antibiotic sliding scale insulin labs reviewed medications reviewed care plan discussed with the staff and 2 brothers at bedside at length, chest x-ray from today reviewed bilateral atelectasis and fluid overload is present overall suggestive of more of his CHF and pneumonia, white cell count is stable, arterial blood gases improved, BUN/creatinine continue to go up 56 and 4.17, sugars have been stabilized 01/19/2019, patient seen and evaluated examined in the ICU intubated on full ventilator support, patient had gradual loss of consciousness has been more lethargic arterial blood gases were checked shows hypercapnic and hypoxic respiratory failure was intubated in the ICU, patient has been placed on propofol he was volume depleted depleted aggressive fluid resuscitation were performed, is still require levo fed intermittently, patient was also noted to be hypoglycemic 7030 insulin and other oral hypoglycemic agents were discontinu ed, ultrasound of the abdomen has been performed which is reviewed no obvious hydronephrosis seen, patient has decreased urine output along with rising BUN/creatinine appeared to be acute tubular necrosis, patient also requiring intermittent bolus of D10 for hypoglycemia, wounds has been evaluated by vascular surgery noted recommendation, patient has very poor venous access, will put a central line in, critical care time 45 minutes during procedure, due to altered mental status CT of the head was performed which was negative 01/18/2019, patient seen eval examined while covering for Dr. Granger, waking up this morning slightly slow to respond but not confused, breathing comfortably denies any chest pain labs reviewed today patient has been evaluated by Dr. Bassett, white cell count is coming down to 19,000, lactic acid level is normalized, patient has been on broad-spectrum antibiotics with vascular surgery on board Objective - Vital Signs Vital signs: Vital Signs Temp 99.0 F 01/24/19 12:00 Pulse 65 01/24/19 14:00 Resp 18 01/24/19 14:00 BP 140/64 01/24/19 14:00 Pulse Ox 97 01/24/19 14:00 Intake & Output 01/23/19 01/24/19 01/24/19 18:59 06:59 18:59 Intake Total 4896.488 9084.896 556.924 Output Total 480 400 365 Balance 763.816 704.896 191.924 Weight 125.1 kg 124.4 kg Intake: IV 376 276 284 0.9 Normal Saline ( 36 36 24 pressure bag) at 3mL/hr Piperacillin-Tazobactam 3 100 100 .375 gm In Sodium Chloride 0.9% 100 ml @ 25 mls/hr IVPB Q12H [place] Rx# :[id number] Sodium Chloride 0.9% 1, 240 240 160 000 ml @ 20 mls/hr IV . Q24H [place] Rx#:[id number] Intake, IV Titration 189.816 150.896 125.924 Amount Insulin Regular 100 unit 22.262 50.896 25.924 In Sodium Chloride 0.9% 100 ml @ Per Protocol IV .Q0M [place] Rx#:[id number] Propofol 1,000 mg In 167.554 100 100.000 Empty Bag 1 bag @ Titrate IV .Q0M [place] Rx#: [id number] Tube Feeding 588 588 147 Other 90 90 Output: Urine 480 400 365 Other: Voiding Method Indwelling Catheter Indwelling Catheter Indwelling Catheter ABP, PAP, CO, CI - Last Documented Arterial Blood Pressure 143/51 - Exam Intubated on full vent support on propofol getting IV fluids normal saline due to hypotension one more fluid bolus being given In general patient is alert and oriented 3 while propofol was stopped s HEENT head normocephalic and atraumatic Neck is supple no JVD no goiter no lymphadenopathy Chest exam reveals a few scattered rhonchi no wheezing Cardiac exam reveals regular heart sounds S1 and S2 no gallops no murmurs Abdomen is soft nontender no organomegaly with normal bowel sounds Extremity exam status post right BKA Neuro no gross focal neurological deficit, patient has anisocoria - Labs CBC & Chem 7: 01/24/19 04:50 01/24/19 04:50 Labs: Abnormal Lab Results - Last 24 Hours (Table) 01/23/19 01/23/19 01/23/19 Range/Units 15:01 15:27 15:59 WBC (3.8-10.6) k/uL RBC (4.30-5.90) m/uL Hgb (13.0-17.5) gm/dL Hct (39.0-53.0) % ABG pH (7.35-7.45) ABG pO2 (83-108) mmHg ABG HCO3 (21-25) mmol/L ABG O2 Saturation (94-97) % Chloride (98-107) mmol/L Carbon Dioxide (22-30) mmol/L BUN (9-20) mg/dL Creatinine (0.66-1.25) mg/dL Glucose (74-99) mg/dL POC Glucose (mg/dL) 262 H 280 H 184 H (75-99) mg/dL Calcium (8.4-10.2) mg/dL 01/23/19 01/23/19 01/23/19 Range/Units 17:03 18:00 19:08 WBC (3.8-10.6) k/uL RBC (4.30-5.90) m/uL Hgb (13.0-17.5) gm/dL Hct (39.0-53.0) % ABG pH (7.35-7.45) ABG pO2 (83-108) mmHg ABG HCO3 (21-25) mmol/L ABG O2 Saturation (94-97) % Chloride (98-107) mmol/L Carbon Dioxide (22-30) mmol/L BUN (9-20) mg/dL Creatinine (0.66-1.25) mg/dL Glucose (74-99) mg/dL POC Glucose (mg/dL) 236 H 207 H 200 H (75-99) mg/dL Calcium (8.4-10.2) mg/dL 01/23/19 01/23/19 01/23/19 Range/Units 20:05 21:00 22:05 WBC (3.8-10.6) k/uL RBC (4.30-5.90) m/uL Hgb (13.0-17.5) gm/dL Hct (39.0-53.0) % ABG pH (7.35-7.45) ABG pO2 (83-108) mmHg ABG HCO3 (21-25) mmol/L ABG O2 Saturation (94-97) % Chloride (98-107) mmol/L Carbon Dioxide (22-30) mmol/L BUN (9-20) mg/dL Creatinine (0.66-1.25) mg/dL Glucose (74-99) mg/dL POC Glucose (mg/dL) 180 H 180 H 159 H (75-99) mg/dL Calcium (8.4-10.2) mg/dL 01/23/19 01/23/19 01/24/19 Range/Units 22:59 23:52 01:20 WBC (3.8-10.6) k/uL RBC (4.30-5.90) m/uL Hgb (13.0-17.5) gm/dL Hct (39.0-53.0) % ABG pH (7.35-7.45) ABG pO2 (83-108) mmHg ABG HCO3 (21-25) mmol/L ABG O2 Saturation (94-97) % Chloride (98-107) mmol/L Carbon Dioxide (22-30) mmol/L BUN (9-20) mg/dL Creatinine (0.66-1.25) mg/dL Glucose (74-99) mg/dL POC Glucose (mg/dL) 146 H 142 H 139 H (75-99) mg/dL Calcium (8.4-10.2) mg/dL 01/24/19 01/24/19 01/24/19 Range/Units 01:58 03:03 04:14 WBC (3.8-10.6) k/uL RBC (4.30-5.90) m/uL Hgb (13.0-17.5) gm/dL Hct (39.0-53.0) % ABG pH (7.35-7.45) ABG pO2 (83-108) mmHg ABG HCO3 (21-25) mmol/L ABG O2 Saturation (94-97) % Chloride (98-107) mmol/L Carbon Dioxide (22-30) mmol/L BUN (9-20) mg/dL Creatinine (0.66-1.25) mg/dL Glucose (74-99) mg/dL POC Glucose (mg/dL) 143 H 166 H 155 H (75-99) mg/dL Calcium (8.4-10.2) mg/dL 01/24/19 01/24/19 01/24/19 Range/Units 04:50 04:50 04:57 WBC 14.1 H (3.8-10.6) k/uL RBC 3.20 L (4.30-5.90) m/uL Hgb 9.6 L (13.0-17.5) gm/dL Hct 29.6 L (39.0-53.0) % ABG pH (7.35-7.45) ABG pO2 (83-108) mmHg ABG HCO3 (21-25) mmol/L ABG O2 Saturation (94-97) % Chloride 116 H (98-107) mmol/L Carbon Dioxide 18 L (22-30) mmol/L BUN 68 H (9-20) mg/dL Creatinine 5.15 H (0.66-1.25) mg/dL Glucose 166 H (74-99) mg/dL POC Glucose (mg/dL) 173 H (75-99) mg/dL Calcium 7.6 L (8.4-10.2) mg/dL 01/24/19 01/24/19 01/24/19 Range/Units 06:06 06:59 07:51 WBC (3.8-10.6) k/uL RBC (4.30-5.90) m/uL Hgb (13.0-17.5) gm/dL Hct (39.0-53.0) % ABG pH 7.31 L (7.35-7.45) ABG pO2 111 H (83-108) mmHg ABG HCO3 19 L (21-25) mmol/L ABG O2 Saturation 98.2 H (94-97) % Chloride (98-107) mmol/L Carbon Dioxide (22-30) mmol/L BUN (9-20) mg/dL Creatinine (0.66-1.25) mg/dL Glucose (74-99) mg/dL POC Glucose (mg/dL) 158 H 159 H (75-99) mg/dL Calcium (8.4-10.2) mg/dL 01/24/19 01/24/19 01/24/19 Range/Units 08:53 10:50 12:04 WBC (3.8-10.6) k/uL RBC (4.30-5.90) m/uL Hgb (13.0-17.5) gm/dL Hct (39.0-53.0) % ABG pH (7.35-7.45) ABG pO2 (83-108) mmHg ABG HCO3 (21-25) mmol/L ABG O2 Saturation (94-97) % Chloride (98-107) mmol/L Carbon Dioxide (22-30) mmol/L BUN (9-20) mg/dL Creatinine (0.66-1.25) mg/dL Glucose (74-99) mg/dL POC Glucose (mg/dL) 170 H 162 H 174 H (75-99) mg/dL Calcium (8.4-10.2) mg/dL 01/24/19 01/24/19 Range/Units 12:52 14:10 WBC (3.8-10.6) k/uL RBC (4.30-5.90) m/uL Hgb (13.0-17.5) gm/dL Hct (39.0-53.0) % ABG pH (7.35-7.45) ABG pO2 (83-108) mmHg ABG HCO3 (21-25) mmol/L ABG O2 Saturation (94-97) % Chloride (98-107) mmol/L Carbon Dioxide (22-30) mmol/L BUN (9-20) mg/dL Creatinine (0.66-1.25) mg/dL Glucose (74-99) mg/dL POC Glucose (mg/dL) 167 H 171 H (75-99) mg/dL Calcium (8.4-10.2) mg/dL Microbiology - Last 24 Hours (Table) 01/19/19 14:20 Blood Culture - Preliminary Blood No Growth after 96 hours Assessment and Plan Assessment: Altered mental status Hypoxic and hypercapnic respiratory failure Acute on chronic renal failure Bilateral atelectasis and possible aspiration pneumonia Fluid overload and acute interstitial edema Severe hypoglycemia 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 Surrounding cellulitis of right foot status post right BKA Sepsis and septic shock Insulin-dependent diabetes mellitus poorly controlled, being started on insulin drip Hypertension hypertensive cardiovascular disease Dyslipidemia Plan: We'll initiate the weaning process starting tomorrow will put patient on CPAP 5 pressure support 10 for 1 hour 2 times a day as tolerated with a sedation holiday Continue dialysis once patient is significantly negative and tolerated dialysis well and consider extubation which will likely be a compilation next 48-72 hours Continue vent support ventilated been adjusted Insulin drip, sugars are better controlled with that Monitor renal functions closely once patient is negative and renal function improving we will initiate the weaning process Patient observation monitored off of propofol does follow simple commands Will observe and monitor anisocoria Renal consultation and recommendations reviewed Continue gentle diuresis Broad-spectrum antibiotics Critical care time 35 minutes excluding procedure Time with Patient: Greater than 30
--- NOTE | 2019-01-24 15:05 | PN ---
PROGRESS NOTE Patient is seen for followup for acute kidney injury. He is status post right BKA. Renal function continues to worsen. Creatinine is up to 5.1. Urine output had gone down to 0 earlier this morning. However, it has picked up and now staying at about 40- 80 mL an hours. Patient remains on the vent. FiO2 is at 50%. PHYSICAL EXAMINATION: This morning, blood pressure 156/72, heart rate 70 per minute, patient is afebrile. Examination of the heart S1, S2. Examination of the lungs, bilateral breath sounds are heard. The patient is intubated. Abdomen is soft, obese. Examination of lower extremities shows recent right BKA. Scrotal edema is noted. HAND SOLE SEWER exam cannot be performed. LABS: Show sodium 143, potassium 4.1, chloride 116, CO2 is 18, BUN 68, creatinine 5.15, hemoglobin 9.6 g/dL. ASSESSMENT: 1. Acute kidney injury, acute tubular necrosis, nonoliguric with progressive renal failure. I will proceed with renal replacement therapy. The patient's family has been talked to regarding initiation of renal replacement therapy. They have been agreeable. 2. Right foot ischemia with wet gangrene, status post amputation of toes initially followed by right BKA yesterday. 3. Metabolic acidosis. 4. Acute hypoxic and hypercapnic respiratory failure. 5. Volume overload. PLAN: Proceed with dialysis. We will plan for catheter placement and first treatment of hemodialysis tomorrow. Continue to avoid nephrotoxic agents as patient continues to have urine output and hopefully his renal function will improve down the road. MMODL / IJN: [id number] /
[2019-01-24 15:09] LABS: Glucose,Whole Blood 179 mg/dL (75-99)
[2019-01-24 17:22] LABS: Glucose,Whole Blood 158 mg/dL (75-99)
[2019-01-24 19:06] LABS: Glucose,Whole Blood 177 mg/dL (75-99)
[2019-01-24] MEDS: LATANOPROST 0.005% OPHTH DROPS 2.5 ML BTL LEFT EYE SCH (20:03)
[2019-01-24 20:04] LABS: Glucose,Whole Blood 175 mg/dL (75-99)
[2019-01-24 22:14] LABS: Glucose,Whole Blood 182 mg/dL (75-99)
[2019-01-24 23:51] LABS: Glucose,Whole Blood 169 mg/dL (75-99)
[2019-01-25] MEDS: PROPOFOL 1,000 MG in EMPTY BAG 1 BAG IV SCH ×6 (01:01→23:51)
[2019-01-25 02:00] LABS: Glucose,Whole Blood 153 mg/dL (75-99)
[2019-01-25] MEDS: MORPHINE SULFATE 2 MG/ML SYRINGE IVP PRN ×2 (03:01→13:50)
[2019-01-25 03:37] LABS: ABG Base Excess -7.6 mmol/L; ABG HCO3 19 mmol/L (21-25); ABG Oxygen Saturation 97.6 % (94-97); ABG PCO2 38 mmHg (35-45); ABG PO2 104 mmHg (83-108); ABG TCO2 20 mmol/L (19-24); Allen Test Performed? Yes
[2019-01-25] MEDS: SODIUM CHLORIDE 0.9% 1,000 ML IV SCH ×2 (04:03→17:23)
[2019-01-25 04:13] LABS: Glucose,Whole Blood 159 mg/dL (75-99)
[2019-01-25 05:08] LABS: Calcium 6.8 mg/dL (8.4-10.2)
[2019-01-25 05:31] LABS: HCT 30.7 % (39.0-53.0); HGB 9.7 gm/dL (13.0-17.5); MCH 29.2 pg (25.0-35.0); MCHC 31.5 g/dL (31.0-37.0); MCV 92.7 fL (80.0-100.0); Mean Platelet Volume 9.6; Platelet Count 239 k/uL (150-450); RBC 3.31 m/uL (4.30-5.90); RDW 12.8 % (11.5-15.5); WBC 11.3 k/uL (3.8-10.6)
[2019-01-25] MEDS: PIPERACILLIN-TAZOBACTAM 3.375 GM in SODIUM CHLORIDE 0.9% 100 ML IVPB SCH ×2 (05:35→17:22)
[2019-01-25 05:51] LABS: Glucose,Whole Blood 178 mg/dL (75-99)
--- NOTE | 2019-01-25 06:19 | XR ---
EXAMINATION TYPE: XR chest 1V portable DATE OF EXAM: 01/25/2019 HISTORY: Mech vent. REFERENCE: Previous study dated 01/24/2019. FINDINGS: The patient is ET tube, NG tube and right internal jugular catheter remain in place, unchan ged in appearance. There is improved aeration of both lungs. The heart remains enlarged. There is some vascular congesti on and residual edema. There are small, bilateral effusions. IMPRESSION: RESOLVING CHANGES OF CONGESTIVE HEART FAILURE.
[2019-01-25] MEDS: GABAPENTIN 100 MG CAP PO SCH ×3 (08:19→21:01)
[2019-01-25] MEDS: BRIMONIDINE TARTRATE 0.2% DROPS 5 ML BTL LEFT EYE SCH ×3 (08:19→22:08)
[2019-01-25] MEDS: PANTOPRAZOLE 40 MG/10 ML VIAL IV SCH (08:19)
[2019-01-25] MEDS: FLUoxetine HCL 20 MG CAP PO SCH (08:19)
[2019-01-25] MEDS: CHLORHEXIDINE GLUCONATE 15 ML CUP MUCOUS MEM SCH ×2 (08:19→21:01)
[2019-01-25] MEDS: HEPARIN SODIUM,PORCINE 5,000 UNIT/ML 1 ML VIAL SQ SCH ×3 (08:19→23:17)
[2019-01-25] MEDS: DORZOLAMIDE HCL 2% DROPS 10 ML BTL LEFT EYE SCH ×3 (08:20→21:06)
[2019-01-25] MEDS: TIMOLOL 0.5% OPHTH DROPS 5 ML BTL LEFT EYE SCH ×2 (08:20→20:47)
[2019-01-25] MEDS ORDERED: FUROSEMIDE 10 MG/ML 10 ML VIAL IV STA ×2 (08:42)
[2019-01-25 08:53] LABS: Glucose,Whole Blood 189 mg/dL (75-99)
--- NOTE | 2019-01-25 08:54 | P.PN ---
Subjective Progress Note Date: 01/25/19 Seen and examined for the follow-up of acute kidney injury. Still on a ventilator PEEP of 5 and 50% FiO2. Sedated on propofol drip. Urine output picked up overnight from 50-70 ML's an hour. Derrick catheter was placed in the left groin yesterday. Urine output of 1100 ML's in the last 24 hours. Objective - Vital Signs Vital signs: Vital Signs Temp 98.4 F 01/25/19 04:00 Pulse 73 01/25/19 07:00 Resp 21 01/25/19 07:00 BP 133/58 01/25/19 07:00 Pulse Ox 97 01/25/19 07:00 Intake & Output 01/24/19 01/25/19 01/25/19 18:59 06:59 18:59 Intake Total 048.511 4069.588 72 Output Total 480 655 75 Balance 318.149 824.588 -3 Weight 123.2 kg Intake: IV 439 356 23 0.9 Normal Saline ( 39 36 3 pressure bag) at 3mL/hr Piperacillin-Tazobactam 3 200 100 .375 gm In Sodium Chloride 0.9% 100 ml @ 25 mls/hr IVPB Q12H [place] Rx# :[id number] Sodium Chloride 0.9% 1, 200 220 20 000 ml @ 20 mls/hr IV . Q24H [place] Rx#:[id number] Intake, IV Titration 163.149 298.588 Amount Insulin Regular 100 unit 40.881 45.265 In Sodium Chloride 0.9% 100 ml @ Per Protocol IV .Q0M [place] Rx#:[id number] Propofol 1,000 mg In 122.268 253.323 Empty Bag 1 bag @ Titrate IV .Q0M [place] Rx#: [id number] Tube Feeding 196 735 49 Other 90 Output: Urine 480 655 75 Other: Voiding Method Indwelling Catheter Indwelling Catheter ABP, PAP, CO, CI - Last Documented Arterial Blood Pressure 169/56 - Exam No acute distress Intubated and sedated. S1-S2 heard Oral intubation Decreased breath sounds Abdomen distended Edema. - Labs CBC & Chem 7: 01/25/19 05:25 01/25/19 04:30 Labs: Abnormal Lab Results - Last 24 Hours (Table) 01/24/19 01/24/19 01/24/19 Range/Units 08:53 10:50 12:04 WBC (3.8-10.6) k/uL RBC (4.30-5.90) m/uL Hgb (13.0-17.5) gm/dL Hct (39.0-53.0) % ABG pH (7.35-7.45) ABG HCO3 (21-25) mmol/L ABG O2 Saturation (94-97) % Chloride (98-107) mmol/L Carbon Dioxide (22-30) mmol/L BUN (9-20) mg/dL Creatinine (0.66-1.25) mg/dL Glucose (74-99) mg/dL POC Glucose (mg/dL) 170 H 162 H 174 H (75-99) mg/dL Calcium (8.4-10.2) mg/dL 01/24/19 01/24/19 01/24/19 Range/Units 12:52 14:10 15:07 WBC (3.8-10.6) k/uL RBC (4.30-5.90) m/uL Hgb (13.0-17.5) gm/dL Hct (39.0-53.0) % ABG pH (7.35-7.45) ABG HCO3 (21-25) mmol/L ABG O2 Saturation (94-97) % Chloride (98-107) mmol/L Carbon Dioxide (22-30) mmol/L BUN (9-20) mg/dL Creatinine (0.66-1.25) mg/dL Glucose (74-99) mg/dL POC Glucose (mg/dL) 167 H 171 H 179 H (75-99) mg/dL Calcium (8.4-10.2) mg/dL 01/24/19 01/24/19 01/24/19 Range/Units 17:21 19:05 20:03 WBC (3.8-10.6) k/uL RBC (4.30-5.90) m/uL Hgb (13.0-17.5) gm/dL Hct (39.0-53.0) % ABG pH (7.35-7.45) ABG HCO3 (21-25) mmol/L ABG O2 Saturation (94-97) % Chloride (98-107) mmol/L Carbon Dioxide (22-30) mmol/L BUN (9-20) mg/dL Creatinine (0.66-1.25) mg/dL Glucose (74-99) mg/dL POC Glucose (mg/dL) 158 H 177 H 175 H (75-99) mg/dL Calcium (8.4-10.2) mg/dL 01/24/19 01/24/19 01/25/19 Range/Units 22:12 23:49 01:59 WBC (3.8-10.6) k/uL RBC (4.30-5.90) m/uL Hgb (13.0-17.5) gm/dL Hct (39.0-53.0) % ABG pH (7.35-7.45) ABG HCO3 (21-25) mmol/L ABG O2 Saturation (94-97) % Chloride (98-107) mmol/L Carbon Dioxide (22-30) mmol/L BUN (9-20) mg/dL Creatinine (0.66-1.25) mg/dL Glucose (74-99) mg/dL POC Glucose (mg/dL) 182 H 169 H 153 H (75-99) mg/dL Calcium (8.4-10.2) mg/dL 01/25/19 01/25/19 01/25/19 Range/Units 03:33 04:12 04:30 WBC (3.8-10.6) k/uL RBC (4.30-5.90) m/uL Hgb (13.0-17.5) gm/dL Hct (39.0-53.0) % ABG pH 7.30 L (7.35-7.45) ABG HCO3 19 L (21-25) mmol/L ABG O2 Saturation 97.6 H (94-97) % Chloride 119 H (98-107) mmol/L Carbon Dioxide 17 L (22-30) mmol/L BUN 73 H (9-20) mg/dL Creatinine 4.44 H (0.66-1.25) mg/dL Glucose 156 H (74-99) mg/dL POC Glucose (mg/dL) 159 H (75-99) mg/dL Calcium 6.8 L (8.4-10.2) mg/dL 01/25/19 01/25/19 Range/Units 05:25 05:49 WBC 11.3 H (3.8-10.6) k/uL RBC 3.31 L (4.30-5.90) m/uL Hgb 9.7 L (13.0-17.5) gm/dL Hct 30.7 L (39.0-53.0) % ABG pH (7.35-7.45) ABG HCO3 (21-25) mmol/L ABG O2 Saturation (94-97) % Chloride (98-107) mmol/L Carbon Dioxide (22-30) mmol/L BUN (9-20) mg/dL Creatinine (0.66-1.25) mg/dL Glucose (74-99) mg/dL POC Glucose (mg/dL) 178 H (75-99) mg/dL Calcium (8.4-10.2) mg/dL Microbiology - Last 24 Hours (Table) 01/19/19 14:20 Blood Culture - Preliminary Blood No Growth after 120 hours Assessment and Plan Assessment: #1 nonoliguric acute kidney injury secondary to septic ATN. Baseline creatinine 0.9-1.1 MG per DL. #2 vent-dependent respiratory failure #3 diabetes with glycosuria #4 hypertension with chronic kidney disease #5 chronic kidney disease stage III suspect diabetic nephropathy with a baseline creatinine of 0.9-1.1 MG per DL. #6 volume overload #7 metabolic acidosis #8 high normal sodium. 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 Plan: #1 as his urine output improving, he has good blood pressure, Lasix challenge with 80 mg IV push followed by 10 mg an hour of drip. #2 hold onto dialysis for later on today if not tomorrow. As his renal function improving and urine output. If no improvement with Lasix challenge, dialysis. #3 change to feed to Nepro. #4 avoid nephrotoxic agents and hypotensive episodes.
[2019-01-25] MEDS: FUROSEMIDE 100 MG in SODIUM CHLORIDE 0.9% 90 ML IV SCH ×2 (09:33→18:32)
[2019-01-25 11:18] LABS: Glucose,Whole Blood 195 mg/dL (75-99)
[2019-01-25] MEDS: INSULIN REGULAR 100 UNIT in SODIUM CHLORIDE 0.9% 100 ML IV SCH (11:20)
[2019-01-25] MEDS: NOREPINEPHRINE 4 MG in SODIUM CHLORIDE 0.9% 250 ML IV SCH ×2 (11:22→22:07)
[2019-01-25 12:05] LABS: Glucose,Whole Blood 193 mg/dL (75-99)
[2019-01-25 12:53] LABS: Glucose,Whole Blood 163 mg/dL (75-99)
--- NOTE | 2019-01-25 13:43 | P.PN ---
Subjective Progress Note Date: 01/25/19 Refugio Saenz, is a 68-year-old male who presented to [facility] emergency room with pain in the right foot, he was evaluated in emergency room and had blackish discoloration of the right fifth toe with surrounding erythema and tenderness, patient was started on IV antibiotics Zosyn, vancomycin, and clindamycin, he was admitted to medical floor vascular surgery consultation was requested for possible amputation due to evidence of gangrene. Infectious disease consultation was requested. Patient has a known history of insulin-dependent diabetes mellitus, his glucose level was well controlled up until September of this year his A1c in June was 7.1 and in September was 7.3 however apparently patient stopped taking his insulin and his medications and his A1c was up to 9.8 in November, he has a known history of right foot ulcer he was admitted to the hospital with right foot cellulitis and ulcer in 2014 and he was followed at the wound care clinic in 2015 however he was doing well up until recently. Patient also has a known history of hypertension, hyperlipidemia, he denies any history of coronary artery disease or congestive heart failure, he had an echocardiogram done in 2014 at that time he had normal left ventricular function was normal ejection fraction, no significant valvular disease and no pulmonary hypertension. 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 On 01/17/2019 patient's alert and oriented 3. Patient had fourth and fifth toe amputation with Dr. Bustillos this morning. Patient having some low blood pressure will give 500 mL bolus. Patient denies chest pain or shortness of breath. Patient denies nausea vomiting or diarrhea. Patient is having some increased pain to foot area pain medications ordered 01/18/2019, patient seen eval examined while covering for Dr. Granger, waking up this morning slightly slow to respond but not confused, breathing comfortably denies any chest pain labs reviewed today patient has been evaluated by Dr. Bassett, white cell count is coming down to 19,000, lactic acid level is normalized, patient has been on broad-spectrum antibiotics with vascular surgery on board 01/19/2019, patient seen and evaluated examined in the ICU intubated on full ventilator support, patient had gradual loss of consciousness has been more lethargic arterial blood gases were checked shows hypercapnic and hypoxic respiratory failure was intubated in the ICU, patient has been placed on propo fol he was volume depleted depleted aggressive fluid resuscitation were performed, is still requiring levophed intermittently, patient was also noted to be hypoglycemic 7030 insulin and other oral hypoglycemic agents were discontinued, ultrasound of the abdomen has been performed which is reviewed no obvious hydronephrosis seen, patient has decreased urine output along with rising BUN/creatinine appeared to be acute tubular necrosis, patient also requiring intermittent bolus of D10 for hypoglycemia, wounds has been evaluated by vascular surgery noted recommendation, patient has very poor venous access, will put a central line in, critical care time 45 minutes during procedure, due to altered mental status CT of the head was performed which was negative On 01/20/2019 patient remains in the intensive care unit on mechanical ventilation. Levophed has been on hold blood pressures has sustained. Creatinine has increased to 4.17 and bun 56. Nephrology services are following. Per nursing staff patient does follow commands during sedation holiday ABGs have improved. Discussed case with vascular surgeon nurse practitioner possible BKA discussion. White blood cell decreasing to 16.0. Critical care services are following. Patient remains on Zosyn for IV antibiotics. Infectious disease following 01/21/2019 patient remains on mechanical ventilation on in the intensive care unit. Patient remains sedated, on propofol. However per nursing staff patient does follow commands during sedation holiday. Patient is on 50% FiO2, 5 PEEP, tidal volume 500. Levophed off since 01/20/20. Blood pressure remains in the 130's-150's systolic. Creatinine 4.35 from 4.17 and BUN 57 from 56, Calcium 7.0, phosphorus 5.9 Nephrology is following. Orogastric tube replaced this morning. Per nursing staff OG tube was coiled in patient's mouth with tube feeds running. Chest x-ray repeated, no significant change from previous. ABG improving, still metabolic acidosis. WBC of 14.1 down from 16. Afebrile. Infectious disease is following patient is maintained on Zosyn. Will send C. diff sample due to new onset diarrhea for 1 day. Hyperglycemia noted (glucose 200's). Will discuss tube feed formula with dietary. If no changes can be made will adjust sliding scale. On 01/22/2019 patient remains sedated on mechanical ventilation in the intensive care unit. Per nursing staff patient is to have a BKA today with Dr. Bustillos. Patient remains off pressors, blood pressure has been stable. Chest x-ray repeated this morning, per pulmonary. No significant change in ABGs. Creatinine continues to increase, 4.84 today BUN 60, patient is still making adequate urine output nephrology is following. Tube feeds on hold, for pending OR. WBC 14.2, temperature overnight 100F. Please is following patient is maintained on Zosyn. C. diff sample was negative. 01/23/2019 patient remains sedated and on mechanical ventilation in the ICU. He underwent right BKA yesterday, 01/22/[address] Bustillos. Estimated blood loss 150 mL. He had a temp of 100 last night. Urine output is about 50 mL per hour. Creatinine has gone down from 4.84-4.82. Nephrology is following closely. No plans for hemodialysis yet. Patient's blood sugars are starting to become more elevated. They're in the 180s to 200s. Tube feedings are being adjusted. White count 13.7 hemoglobin 10.3 On 01/24/2019 patient remains sedated on mechanical ventilation in the intensive care unit. Decreased urine output throughout night. Creatinine 5.15 and bun 68. Patient remains on insulin drip. WBC 14.1. Patient having low-grade temps. Patient remains closely followed by critical care consulting providers On 01/25/2019 patient was seen and examined in the intensive care unit, he is currently alert and maintained on BiPAP trial, he is making more urine output, and no hemodialysis is scheduled at this time, creatinine improved, down from 5.15-4.44 white blood count down to 11.3 patient is followed by nephrology, infectious disease, pulmonary and critical care and vascular surgery Objective - Vital Signs Vital signs: Vital Signs Temp 98.4 F 01/25/19 12:00 Pulse 64 01/25/19 12:00 Resp 18 01/25/19 12:00 BP 128/55 01/25/19 12:00 Pulse Ox 97 01/25/19 12:00 Intake & Output 01/24/19 01/25/19 01/25/19 18:59 06:59 18:59 Intake Total 880.832 1579.588 414.949 Output Total 480 655 670 Balance 318.149 824.588 -255.051 Weight 123.2 kg Intake: IV 439 356 161 0.9 Normal Saline ( 39 36 21 pressure bag) at 3mL/hr Piperacillin-Tazobactam 3 200 100 .375 gm In Sodium Chloride 0.9% 100 ml @ 25 mls/hr IVPB Q12H [facility] Rx# :[id number] Sodium Chloride 0.9% 1, 200 220 140 000 ml @ 20 mls/hr IV . Q24H [place] Rx#:[id number] Intake, IV Titration 163.149 298.588 155.949 Amount Insulin Regular 100 unit 40.881 45.265 36.781 In Sodium Chloride 0.9% 100 ml @ Per Protocol IV .Q0M [place] Rx#:[id number] Propofol 1,000 mg In 122.268 253.323 119.168 Empty Bag 1 bag @ Titrate IV .Q0M [facility] Rx#: [id number] Tube Feeding 196 735 98 Other 90 Output: Urine 480 655 670 Other: Voiding Method Indwelling Catheter Indwelling Catheter Indwelling Catheter ABP, PAP, CO, CI - Last Documented Arterial Blood Pressure 141/49 - Exam In general patient remains intubated he is currently alert and maintained on BiPAP HEENT head normocephalic and atraumatic Neck is supple no JVD no goiter no lymphadenopathy Chest exam reveals a few scattered rhonchi no wheezing Cardiac exam reveals regular heart sounds S1 and S2 no gallops no murmurs Abdomen is soft nontender no organomegaly with normal bowel sounds Extremity exam reveals minimal edema 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 Neuro no gross focal neurological deficit - Labs CBC & Chem 7: 01/25/19 05:25 01/25/19 04:30 Labs: Abnormal Lab Results - Last 24 Hours (Table) 01/24/19 01/24/19 01/24/19 Range/Units 14:10 15:07 17:21 WBC (3.8-10.6) k/uL RBC (4.30-5.90) m/uL Hgb (13.0-17.5) gm/dL Hct (39.0-53.0) % ABG pH (7.35-7.45) ABG HCO3 (21-25) mmol/L ABG O2 Saturation (94-97) % Chloride (98-107) mmol/L Carbon Dioxide (22-30) mmol/L BUN (9-20) mg/dL Creatinine (0.66-1.25) mg/dL Glucose (74-99) mg/dL POC Glucose (mg/dL) 171 H 179 H 158 H (75-99) mg/dL Calcium (8.4-10.2) mg/dL 01/24/19 01/24/19 01/24/19 Range/Units 19:05 20:03 22:12 WBC (3.8-10.6) k/uL RBC (4.30-5.90) m/uL Hgb (13.0-17.5) gm/dL Hct (39.0-53.0) % ABG pH (7.35-7.45) ABG HCO3 (21-25) mmol/L ABG O2 Saturation (94-97) % Chloride (98-107) mmol/L Carbon Dioxide (22-30) mmol/L BUN (9-20) mg/dL Creatinine (0.66-1.25) mg/dL Glucose (74-99) mg/dL POC Glucose (mg/dL) 177 H 175 H 182 H (75-99) mg/dL Calcium (8.4-10.2) mg/dL 01/24/19 01/25/19 01/25/19 Range/Units 23:49 01:59 03:33 WBC (3.8-10.6) k/uL RBC (4.30-5.90) m/uL Hgb (13.0-17.5) gm/dL Hct (39.0-53.0) % ABG pH 7.30 L (7.35-7.45) ABG HCO3 19 L (21-25) mmol/L ABG O2 Saturation 97.6 H (94-97) % Chloride (98-107) mmol/L Carbon Dioxide (22-30) mmol/L BUN (9-20) mg/dL Creatinine (0.66-1.25) mg/dL Glucose (74-99) mg/dL POC Glucose (mg/dL) 169 H 153 H (75-99) mg/dL Calcium (8.4-10.2) mg/dL 01/25/19 01/25/19 01/25/19 Range/Units 04:12 04:30 05:25 WBC 11.3 H (3.8-10.6) k/uL RBC 3.31 L (4.30-5.90) m/uL Hgb 9.7 L (13.0-17.5) gm/dL Hct 30.7 L (39.0-53.0) % ABG pH (7.35-7.45) ABG HCO3 (21-25) mmol/L ABG O2 Saturation (94-97) % Chloride 119 H (98-107) mmol/L Carbon Dioxide 17 L (22-30) mmol/L BUN 73 H (9-20) mg/dL Creatinine 4.44 H (0.66-1.25) mg/dL Glucose 156 H (74-99) mg/dL POC Glucose (mg/dL) 159 H (75-99) mg/dL Calcium 6.8 L (8.4-10.2) mg/dL 01/25/19 01/25/19 01/25/19 Range/Units 05:49 08:52 11:17 WBC (3.8-10.6) k/uL RBC (4.30-5.90) m/uL Hgb (13.0-17.5) gm/dL Hct (39.0-53.0) % ABG pH (7.35-7.45) ABG HCO3 (21-25) mmol/L ABG O2 Saturation (94-97) % Chloride (98-107) mmol/L Carbon Dioxide (22-30) mmol/L BUN (9-20) mg/dL Creatinine (0.66-1.25) mg/dL Glucose (74-99) mg/dL POC Glucose (mg/dL) 178 H 189 H 195 H (75-99) mg/dL Calcium (8.4-10.2) mg/dL 01/25/19 01/25/19 Range/Units 12:04 12:51 WBC (3.8-10.6) k/uL RBC (4.30-5.90) m/uL Hgb (13.0-17.5) gm/dL Hct (39.0-53.0) % ABG pH (7.35-7.45) ABG HCO3 (21-25) mmol/L ABG O2 Saturation (94-97) % Chloride (98-107) mmol/L Carbon Dioxide (22-30) mmol/L BUN (9-20) mg/dL Creatinine (0.66-1.25) mg/dL Glucose (74-99) mg/dL POC Glucose (mg/dL) 193 H 163 H (75-99) mg/dL Calcium (8.4-10.2) mg/dL Microbiology - Last 24 Hours (Table) 01/19/19 14:20 Blood Culture - Preliminary Blood No Growth after 120 hours Assessment and Plan Plan: #1 gangrene involving the right fifth toe with surrounding cellulitis Status post amputation of fourth and fifth toe with Dr. Bustillos. Patient is currently postop day 4. Possible discussion of below knee amputation rather than attempt at possible revascularization. Arterial Doppler completed, ALMA of the right 0.79. Per nursing staff patient is to have a BKA today with Dr. Bustillos. #2 sepsis present on admission as evidenced by fever, leukocytosis, and elevated lactic acid. White blood cell improving to 14.2 from 16. Lactic acid normalized, 0.7. Infectious disease is following. Patient remains on Zosyn for IV antibiotics #3 acute hypoxic and hypercapnic respiratory failure with altered mental status changes secondary to severe sepsis. Patient was transferred to the intensive care unit and placed on mechanical ventilation. Patient is sedated on propofol . Per nursing staff patient is following commands . Vent things 50 FiO2, PEEP 5. 500 tidal volume, rate 18. Critical care services are following. #4. Hypotension secondary to septic shock. Levophed currently off. Blood pressure has improved, systolic 130s to 150s. #5. Acute kidney injury secondary to ATN secondary to hypotension as well as vancomycin toxicity. Nephrology services are following. Ultrasound completed showing no evidence of hydronephrosis. Creatinine increasing to 4. 35 and bun 5 7. Per nephrology services maintain 0.9 normal saline at 50/ml, avoid nephrotoxins. Vancomycin and lisinopril have been discontinued. continue to monitor urine output closely. Per nephrology discussion was held with family for possible renal replacement therapy. Diuretics on hold per nephrology services #6. history of essential hypertension. Cardiology services following. EF 50- 55%. Per cardiology services no evidence of acute coronary syndrome at this time #7. insulin-dependent diabetes mellitus, with poor control due to noncompliance last hemoglobin A1c was 9.8 at this time will hold glipizide, Januvia and metformin, and cover was insulin to sliding scale will adjust medications as needed. Blood sugars have been in the 200s after episode of hypoglycemia. Patient currently on insulin drip for tight blood sugar control #8. underlying history of diabetic complications of peripheral neuropathy and retinopathy. #9. poor compliance with medical management, patient had extensive counseling in the last year, his A1c was down to 7.1 in June however it was up to 9.8 again recently. #10 underlying history of hyperlipidemia maintained on atorvastatin, on hold. #11. Hypoglycemia. Home meds DC'd. Tube feedings have been initiated. Hypoglycemia has resolved #12. Suspected aspiration. Orogastric tube was coiled in the patient's mouth with tube feeds running. Tube was removed and replaced. Chest x-ray completed. Overall stable findings, no significant change from prior, bilateral small pleural effusions noted, CHF exacerbation versus fluid overload state. Repeat chest x-ray today per pulmonary. No acute changes made, no change in ABG. Infectious disease is following. DVT prophylaxis heparin. GI prophylaxis Protonix Patient remains in the intensive care unit on mechanical ventilation Critical care, vascular surgery, infectious disease, cardiology and nephrology services following
[2019-01-25 13:56] LABS: Glucose,Whole Blood 189 mg/dL (75-99)
[2019-01-25 15:04] LABS: Glucose,Whole Blood 213 mg/dL (75-99)
[2019-01-25 15:05] LABS: Glucose,Whole Blood 182 mg/dL (75-99)
[2019-01-25 16:06] LABS: Glucose,Whole Blood 171 mg/dL (75-99)
[2019-01-25 17:27] LABS: Glucose,Whole Blood 180 mg/dL (75-99)
[2019-01-25 18:40] LABS: Glucose,Whole Blood 194 mg/dL (75-99)
[2019-01-25 20:25] LABS: Glucose,Whole Blood 163 mg/dL (75-99)
[2019-01-25] MEDS: LATANOPROST 0.005% OPHTH DROPS 2.5 ML BTL LEFT EYE SCH (20:27)
[2019-01-25 22:11] LABS: Glucose,Whole Blood 156 mg/dL (75-99)
[2019-01-25 23:49] LABS: Glucose,Whole Blood 171 mg/dL (75-99)
[2019-01-26] MEDS: SODIUM CHLORIDE 0.9% 1,000 ML IV SCH ×3 (00:43→20:00)
[2019-01-26] MEDS: MORPHINE SULFATE 2 MG/ML SYRINGE IVP PRN ×4 (00:45→22:10)
[2019-01-26 02:49] LABS: Glucose,Whole Blood 164 mg/dL (75-99)
[2019-01-26] MEDS: INSULIN REGULAR 100 UNIT in SODIUM CHLORIDE 0.9% 100 ML IV SCH (03:21)
[2019-01-26] MEDS: FUROSEMIDE 100 MG in SODIUM CHLORIDE 0.9% 90 ML IV SCH ×3 (03:21→23:20)
[2019-01-26] MEDS: PROPOFOL 1,000 MG in EMPTY BAG 1 BAG IV SCH ×4 (03:52→20:04)
[2019-01-26 04:02] LABS: ABG Base Excess -8.2 mmol/L; ABG HCO3 19 mmol/L (21-25); ABG Oxygen Saturation 97.6 % (94-97); ABG PCO2 41 mmHg (35-45); ABG PH 7.27 (7.35-7.45); ABG PO2 102 mmHg (83-108); ABG TCO2 20 mmol/L (19-24); Allen Test Performed? Yes
[2019-01-26 04:40] LABS: Glucose,Whole Blood 156 mg/dL (75-99)
[2019-01-26 04:48] LABS: HCT 29.5 % (39.0-53.0); HGB 9.5 gm/dL (13.0-17.5); Hypochromasia Slight; MCH 29.6 pg (25.0-35.0); MCHC 32.4 g/dL (31.0-37.0); MCV 91.6 fL (80.0-100.0); Mean Platelet Volume 10.9; Platelet Count 244 k/uL (150-450); RBC 3.22 m/uL (4.30-5.90); RDW 12.5 % (11.5-15.5)
[2019-01-26 04:59] LABS: Calcium 7.7 mg/dL (8.4-10.2); Potassium 4.2 mmol/L (3.5-5.1)
[2019-01-26 05:52] LABS: Glucose,Whole Blood 149 mg/dL (75-99)
--- NOTE | 2019-01-26 06:44 | XR ---
EXAMINATION TYPE: XR chest 1V portable DATE OF EXAM: 01/26/2019 HISTORY: Mech vent. REFERENCE: Previous study dated 01/25/2019. FINDINGS: The patient is ET tube and NG tube as well as a right internal jugular catheter remain in p lace, unchanged in appearance. The heart is enlarged. There is vascular congestion and pulmonary edema. There are small bilateral ef fusions. IMPRESSION: WORSENING CHANGES OF CONGESTIVE HEART FAILURE.
[2019-01-26 08:32] LABS: Glucose,Whole Blood 135 mg/dL (75-99)
--- NOTE | 2019-01-26 08:34 | P.PN ---
Subjective Progress Note Date: 01/26/19 Seen and examined for the follow-up of acute kidney injury. Still on a ventilator PEEP of 5 and 50% FiO2. Sedated on propofol drip. Urine output off 3.5 L within it negative of 1 L. Renal function continued to worsen. Objective - Vital Signs Vital signs: Vital Signs Temp 98.3 F 01/26/19 08:00 Pulse 63 01/26/19 08:00 Resp 18 01/26/19 08:00 BP 137/60 01/26/19 08:00 Pulse Ox 98 01/26/19 08:00 Intake & Output 01/25/19 01/26/19 01/26/19 18:59 06:59 18:59 Intake Total 8258.680 9298.087 195 Output Total 1995 1500 225 Balance -983.079 -56.913 -30 Weight 122.2 kg Intake: IV 299 253 46 0.9 Normal Saline ( 39 33 6 pressure bag) at 3mL/hr Sodium Chloride 0.9% 1, 260 220 40 000 ml @ 20 mls/hr IV . Q24H [facility] Rx#:[id number] Intake, IV Titration 369.921 335.087 100 Amount Furosemide 100 mg In 89.833 88.167 Sodium Chloride 0.9% 90 ml @ 10 MG/HR 10 mls/hr IV .Q10H [place] Rx#: [id number] Insulin Regular 100 unit 62.174 67.232 In Sodium Chloride 0.9% 100 ml @ Per Protocol IV .Q0M [place] Rx#:[id number] Propofol 1,000 mg In 217.914 179.688 100 Empty Bag 1 bag @ Titrate IV .Q0M [place] Rx#: [id number] Tube Feeding 343 735 49 Other 120 Output: Urine 1395 1500 225 Stool 600 Other: Voiding Method Indwelling Catheter Indwelling Catheter ABP, PAP, CO, CI - Last Documented Arterial Blood Pressure 127/42 - Exam No acute distress Intubated and sedated. S1-S2 heard Oral intubation Decreased breath sounds Abdomen distended Edema. Left groin Derrick - Labs CBC & Chem 7: 01/26/19 04:40 01/26/19 04:40 Labs: Abnormal Lab Results - Last 24 Hours (Table) 01/25/19 01/25/19 01/25/19 Range/Units 08:52 11:17 12:04 WBC (3.8-10.6) k/uL RBC (4.30-5.90) m/uL Hgb (13.0-17.5) gm/dL Hct (39.0-53.0) % ABG pH (7.35-7.45) ABG HCO3 (21-25) mmol/L ABG O2 Saturation (94-97) % Chloride (98-107) mmol/L Carbon Dioxide (22-30) mmol/L BUN (9-20) mg/dL Creatinine (0.66-1.25) mg/dL Glucose (74-99) mg/dL POC Glucose (mg/dL) 189 H 195 H 193 H (75-99) mg/dL Calcium (8.4-10.2) mg/dL 01/25/19 01/25/19 01/25/19 Range/Units 12:51 13:55 15:03 WBC (3.8-10.6) k/uL RBC (4.30-5.90) m/uL Hgb (13.0-17.5) gm/dL Hct (39.0-53.0) % ABG pH (7.35-7.45) ABG HCO3 (21-25) mmol/L ABG O2 Saturation (94-97) % Chloride (98-107) mmol/L Carbon Dioxide (22-30) mmol/L BUN (9-20) mg/dL Creatinine (0.66-1.25) mg/dL Glucose (74-99) mg/dL POC Glucose (mg/dL) 163 H 189 H 213 H (75-99) mg/dL Calcium (8.4-10.2) mg/dL 01/25/19 01/25/19 01/25/19 Range/Units 15:04 16:05 17:25 WBC (3.8-10.6) k/uL RBC (4.30-5.90) m/uL Hgb (13.0-17.5) gm/dL Hct (39.0-53.0) % ABG pH (7.35-7.45) ABG HCO3 (21-25) mmol/L ABG O2 Saturation (94-97) % Chloride (98-107) mmol/L Carbon Dioxide (22-30) mmol/L BUN (9-20) mg/dL Creatinine (0.66-1.25) mg/dL Glucose (74-99) mg/dL POC Glucose (mg/dL) 182 H 171 H 180 H (75-99) mg/dL Calcium (8.4-10.2) mg/dL 01/25/19 01/25/19 01/25/19 Range/Units 18:38 20:23 22:09 WBC (3.8-10.6) k/uL RBC (4.30-5.90) m/uL Hgb (13.0-17.5) gm/dL Hct (39.0-53.0) % ABG pH (7.35-7.45) ABG HCO3 (21-25) mmol/L ABG O2 Saturation (94-97) % Chloride (98-107) mmol/L Carbon Dioxide (22-30) mmol/L BUN (9-20) mg/dL Creatinine (0.66-1.25) mg/dL Glucose (74-99) mg/dL POC Glucose (mg/dL) 194 H 163 H 156 H (75-99) mg/dL Calcium (8.4-10.2) mg/dL 01/25/19 01/26/19 01/26/19 Range/Units 23:48 02:47 03:56 WBC (3.8-10.6) k/uL RBC (4.30-5.90) m/uL Hgb (13.0-17.5) gm/dL Hct (39.0-53.0) % ABG pH 7.27 L (7.35-7.45) ABG HCO3 19 L (21-25) mmol/L ABG O2 Saturation 97.6 H (94-97) % Chloride (98-107) mmol/L Carbon Dioxide (22-30) mmol/L BUN (9-20) mg/dL Creatinine (0.66-1.25) mg/dL Glucose (74-99) mg/dL POC Glucose (mg/dL) 171 H 164 H (75-99) mg/dL Calcium (8.4-10.2) mg/dL 01/26/19 01/26/19 01/26/19 Range/Units 04:37 04:40 04:40 WBC 12.0 H (3.8-10.6) k/uL RBC 3.22 L (4.30-5.90) m/uL Hgb 9.5 L (13.0-17.5) gm/dL Hct 29.5 L (39.0-53.0) % ABG pH (7.35-7.45) ABG HCO3 (21-25) mmol/L ABG O2 Saturation (94-97) % Chloride 116 H (98-107) mmol/L Carbon Dioxide 20 L (22-30) mmol/L BUN 84 H (9-20) mg/dL Creatinine 5.22 H (0.66-1.25) mg/dL Glucose 159 H (74-99) mg/dL POC Glucose (mg/dL) 156 H (75-99) mg/dL Calcium 7.7 L (8.4-10.2) mg/dL 01/26/19 01/26/19 Range/Units 05:51 08:31 WBC (3.8-10.6) k/uL RBC (4.30-5.90) m/uL Hgb (13.0-17.5) gm/dL Hct (39.0-53.0) % ABG pH (7.35-7.45) ABG HCO3 (21-25) mmol/L ABG O2 Saturation (94-97) % Chloride (98-107) mmol/L Carbon Dioxide (22-30) mmol/L BUN (9-20) mg/dL Creatinine (0.66-1.25) mg/dL Glucose (74-99) mg/dL POC Glucose (mg/dL) 149 H 135 H (75-99) mg/dL Calcium (8.4-10.2) mg/dL Microbiology - Last 24 Hours (Table) 01/19/19 14:20 Blood Culture - Final Blood No Growth after 144 hours Assessment and Plan Assessment: #1 nonoliguric acute kidney injury secondary to septic ATN. Baseline creatinine 0.9-1.1 MG per DL. #2 vent-dependent respiratory failure #3 diabetes with glycosuria #4 hypertension with chronic kidney disease #5 chronic kidney disease stage III suspect diabetic nephropathy with a baseline creatinine of 0.9-1.1 MG per DL. #6 volume overload #7 metabolic acidosis #8 high normal sodium. 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 Plan: #1 renal function continued to worsen, start hemodialysis today. 2.5 hours and 2.5 L. In plan again tomorrow. #2 continue Lasix drip. #3 Nepro tube feeds #4 avoid nephrotoxic agents and hypotensive episodes.
[2019-01-26] MEDS: NOREPINEPHRINE 4 MG in SODIUM CHLORIDE 0.9% 250 ML IV SCH ×2 (08:45→20:00)
[2019-01-26] MEDS: HEPARIN SODIUM,PORCINE 5,000 UNIT/ML 1 ML VIAL SQ SCH ×2 (09:08→17:35)
[2019-01-26 10:01] LABS: Glucose,Whole Blood 131 mg/dL (75-99)
--- NOTE | 2019-01-26 11:01 | P.PN ---
Subjective Refugio Saenz, is a 68-year-old male who presented to [facility] emergency room with pain in the right foot, he was evaluated in emergency room and had blackish discoloration of the right fifth toe with surrounding erythema and tenderness, patient was started on IV antibiotics Zosyn, vancomycin, and clindamycin, he was admitted to medical floor vascular surgery consultation was requested for possible amputation due to evidence of gangrene. Infectious disease consultation was requested. Patient has a known history of insulin-dependent diabetes mellitus, his glucose level was well controlled up until September of this year his A1c in June was 7.1 and in September was 7.3 however apparently patient stopped taking his insulin and his medications and his A1c was up to 9.8 in November, he has a known history of right foot ulcer he was admitted to the hospital with right foot cellulitis and ulcer in 2014 and he was followed at the wound care clinic in 2015 however he was doing well up until recently. Patient also has a known history of hypertension, hyperlipidemia, he denies any history of coronary artery disease or congestive heart failure, he had an echocardiogram done in 2014 at that time he had normal left ventricular function was normal ejection fraction, no significant valvular disease and no pulmonary hypertension. 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 On 01/17/2019 patient's alert and oriented 3. Patient had fourth and fifth toe amputation with Dr. Bustillos this morning. Patient having some low blood pressure will give 500 mL bolus. Patient denies chest pain or shortness of breath. Patient denies nausea vomiting or diarrhea. Patient is having some increased pain to foot area pain medications ordered 01/18/2019, patient seen eval examined while covering for Dr. Granger, waking up this morning slightly slow to respond but not confused, breathing comfortably denies any chest pain labs reviewed today patient has been evaluated by Dr. Bassett, white cell count is coming down to 19,000, lactic acid level is normalized, patient has been on broad-spectrum antibiotics with vascular surgery on board 01/19/2019, patient seen and evaluated examined in the ICU intubated on full ventilator support, patient had gradual loss of consciousness has been more lethargic arterial blood gases were checked shows hypercapnic and hypoxic respiratory failure was intubated in the ICU, patient has been placed on propofol he was volume depleted depleted aggressive fluid resuscitation were performed, is still requiring levophed intermittently, patient was also noted to be hypoglycemic 7030 insulin and other oral hypoglycemic agents were discontinued, ultrasound of the abdomen has been performed which is reviewed no obvious hydronephrosis seen, patient has decreased urine output along with rising BUN/creatinine appeared to be acute tubular necrosis, patient also requiring intermittent bolus of D10 for hypoglycemia, wounds has been evaluated by vascular surgery noted recommendation, patient has very poor venous access, will put a central line in, critical care time 45 minutes during procedure, due to altered mental status CT of the head was performed which was negative On 01/20/2019 patient remains in the intensive care unit on mechanical ventila tion. Levophed has been on hold blood pressures has sustained. Creatinine has increased to 4.17 and bun 56. Nephrology services are following. Per nursing staff patient does follow commands during sedation holiday ABGs have improved. Discussed case with vascular surgeon nurse practitioner possible BKA discussion. White blood cell decreasing to 16.0. Critical care services are following. Addi avalos remains on Zosyn for IV antibiotics. Infectious disease following 01/21/2019 patient remains on mechanical ventilation on in the intensive care unit. Patient remains sedated, on propofol. However per nursing staff patient does follow commands during sedation holiday. Patient is on 50% FiO2, 5 PEEP, tidal volume 500. Levophed off since 01/20/20. Blood pressure remains in the 130's-150's systolic. Creatinine 4.35 from 4.17 and BUN 57 from 56, Calcium 7.0, phosphorus 5.9 Nephrology is following. Orogastric tube replaced this morning. Per nursing staff OG tube was coiled in patient's mouth with tube feeds running. Chest x-ray repeated, no significant change from previous. ABG improving, still metabolic acidosis. WBC of 14.1 down from 16. Afebrile. Infectious disease is following patient is maintained on Zosyn. Will send C. diff sample due to new onset diarrhea for 1 day. Hyperglycemia noted (glucose 200's). Will discuss tube feed formula with dietary. If no changes can be made will adjust sliding scale. On 01/22/2019 patient remains sedated on mechanical ventilation in the intensive care unit. Per nursing staff patient is to have a BKA today with Dr. Bustillos. Patient remains off pressors, blood pressure has been stable. Chest x-ray repeated this morning, per pulmonary. No significant change in ABGs. Creatinine continues to increase, 4.84 today BUN 60, patient is still making adequate urine output nephrology is following. Tube feeds on hold, for pending OR. WBC 14.2, temperature overnight 100F. Please is following patient is maintained on Zosyn. C. diff sample was negative. 01/23/2019 patient remains sedated and on mechanical ventilation in the ICU. He underwent right BKA yesterday, 01/22/[address] Bustillos. Estimated blood loss 150 mL. He had a temp of 100 last night. Urine output is about 50 mL per hour. Creatinine has gone down from 4.84-4.82. Nephrology is following closely. No plans for hemodialysis yet. Patient's blood sugars are starting to become more elevated. They're in the 180s to 200s. Tube feedings are being adjusted. White count 13.7 hemoglobin 10.3 On 01/24/2019 patient remains sedated on mechanical ventilation in the intensive care unit. Decreased urine output throughout night. Creatinine 5.15 and bun 68. Patient remains on insulin drip. WBC 14.1. Patient having low-grade temps. Patient remains closely followed by critical care consulting providers On 01/25/2019 patient was seen and examined in the intensive care unit, he is currently alert and maintained on BiPAP trial, he is making more urine output, and no hemodialysis is scheduled at this time, creatinine improved, down from 5.15-4.44 white blood count down to 11.3 patient is followed by nephrology, infectious disease, pulmonary and critical care and vascular surgery On 01/26/2019 patient was seen and examined in the ICU, he is intubated sedated maintained on mechanical ventilation, creatinine went up today and he was started on hemodialysis, Zosyn has today, at this time will resume Zosyn, we have asked infectious disease to see patient and reassess antibiotics, otherwise patient is stable there is no fever or chills, he continues to have a rectal tube and having large amount of diarrhea, C. diff was checked and was negative will repeat test today. Objective - Vital Signs Vital signs: Vital Signs Temp 98.3 F 01/26/19 08:00 Pulse 63 01/26/19 08:00 Resp 18 01/26/19 08:00 BP 137/60 01/26/19 08:00 Pulse Ox 98 01/26/19 08:00 Intake & Output 01/25/19 01/26/19 01/26/19 18:59 06:59 18:59 Intake Total 2025.826 0462.087 253.359 Output Total 1994 1500 225 Balance -983.079 -56.913 28.359 Weight 122.2 kg Intake: IV 299 253 46 0.9 Normal Saline ( 39 33 6 pressure bag) at 3mL/hr Sodium Chloride 0.9% 1, 260 220 40 000 ml @ 20 mls/hr IV . Q24H [place] Rx#:[id number] Intake, IV Titration 369.921 335.087 109.359 Amount Furosemide 100 mg In 89.833 88.167 Sodium Chloride 0.9% 90 ml @ 10 MG/HR 10 mls/hr IV .Q10H [place] Rx#: [id number] Insulin Regular 100 unit 62.174 67.232 9.359 In Sodium Chloride 0.9% 100 ml @ Per Protocol IV .Q0M [place] Rx#:[id number] Propofol 1,000 mg In 217.914 179.688 100 Empty Bag 1 bag @ Titrate IV .Q0M [place] Rx#: [id number] Tube Feeding 343 735 98 Other 120 Output: Urine 1395 1500 225 Stool 600 Other: Voiding Method Indwelling Catheter Indwelling Catheter ABP, PAP, CO, CI - Last Documented Arterial Blood Pressure 127/42 - Exam In general patient remains intubated he is currently alert and maintained on BiPAP HEENT head normocephalic and atraumatic Neck is supple no JVD no goiter no lymphadenopathy Chest exam reveals a few scattered rhonchi no wheezing Cardiac exam reveals regular heart sounds S1 and S2 no gallops no murmurs Abdomen is soft nontender no organomegaly with normal bowel sounds Extremity exam reveals minimal edema 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 Neuro no gross focal neurological deficit - Labs CBC & Chem 7: 01/26/19 04:40 01/26/19 04:40 Labs: Abnormal Lab Results - Last 24 Hours (Table) 01/25/19 01/25/19 01/25/19 Range/Units 11:17 12:04 12:51 WBC (3.8-10.6) k/uL RBC (4.30-5.90) m/uL Hgb (13.0-17.5) gm/dL Hct (39.0-53.0) % ABG pH (7.35-7.45) ABG HCO3 (21-25) mmol/L ABG O2 Saturation (94-97) % Chloride (98-107) mmol/L Carbon Dioxide (22-30) mmol/L BUN (9-20) mg/dL Creatinine (0.66-1.25) mg/dL Glucose (74-99) mg/dL POC Glucose (mg/dL) 195 H 193 H 163 H (75-99) mg/dL Calcium (8.4-10.2) mg/dL 01/25/19 01/25/19 01/25/19 Range/Units 13:55 15:03 15:04 WBC (3.8-10.6) k/uL RBC (4.30-5.90) m/uL Hgb (13.0-17.5) gm/dL Hct (39.0-53.0) % ABG pH (7.35-7.45) ABG HCO3 (21-25) mmol/L ABG O2 Saturation (94-97) % Chloride (98-107) mmol/L Carbon Dioxide (22-30) mmol/L BUN (9-20) mg/dL Creatinine (0.66-1.25) mg/dL Glucose (74-99) mg/dL POC Glucose (mg/dL) 189 H 213 H 182 H (75-99) mg/dL Calcium (8.4-10.2) mg/dL 01/25/19 01/25/19 01/25/19 Range/Units 16:05 17:25 18:38 WBC (3.8-10.6) k/uL RBC (4.30-5.90) m/uL Hgb (13.0-17.5) gm/dL Hct (39.0-53.0) % ABG pH (7.35-7.45) ABG HCO3 (21-25) mmol/L ABG O2 Saturation (94-97) % Chloride (98-107) mmol/L Carbon Dioxide (22-30) mmol/L BUN (9-20) mg/dL Creatinine (0.66-1.25) mg/dL Glucose (74-99) mg/dL POC Glucose (mg/dL) 171 H 180 H 194 H (75-99) mg/dL Calcium (8.4-10.2) mg/dL 01/25/19 01/25/19 01/25/19 Range/Units 20:23 22:09 23:48 WBC (3.8-10.6) k/uL RBC (4.30-5.90) m/uL Hgb (13.0-17.5) gm/dL Hct (39.0-53.0) % ABG pH (7.35-7.45) ABG HCO3 (21-25) mmol/L ABG O2 Saturation (94-97) % Chloride (98-107) mmol/L Carbon Dioxide (22-30) mmol/L BUN (9-20) mg/dL Creatinine (0.66-1.25) mg/dL Glucose (74-99) mg/dL POC Glucose (mg/dL) 163 H 156 H 171 H (75-99) mg/dL Calcium (8.4-10.2) mg/dL 01/26/19 01/26/19 01/26/19 Range/Units 02:47 03:56 04:37 WBC (3.8-10.6) k/uL RBC (4.30-5.90) m/uL Hgb (13.0-17.5) gm/dL Hct (39.0-53.0) % ABG pH 7.27 L (7.35-7.45) ABG HCO3 19 L (21-25) mmol/L ABG O2 Saturation 97.6 H (94-97) % Chloride (98-107) mmol/L Carbon Dioxide (22-30) mmol/L BUN (9-20) mg/dL Creatinine (0.66-1.25) mg/dL Glucose (74-99) mg/dL POC Glucose (mg/dL) 164 H 156 H (75-99) mg/dL Calcium (8.4-10.2) mg/dL 01/26/19 01/26/19 01/26/19 Range/Units 04:40 04:40 05:51 WBC 12.0 H (3.8-10.6) k/uL RBC 3.22 L (4.30-5.90) m/uL Hgb 9.5 L (13.0-17.5) gm/dL Hct 29.5 L (39.0-53.0) % ABG pH (7.35-7.45) ABG HCO3 (21-25) mmol/L ABG O2 Saturation (94-97) % Chloride 116 H (98-107) mmol/L Carbon Dioxide 20 L (22-30) mmol/L BUN 84 H (9-20) mg/dL Creatinine 5.22 H (0.66-1.25) mg/dL Glucose 159 H (74-99) mg/dL POC Glucose (mg/dL) 149 H (75-99) mg/dL Calcium 7.7 L (8.4-10.2) mg/dL 01/26/19 Range/Units 08:31 WBC (3.8-10.6) k/uL RBC (4.30-5.90) m/uL Hgb (13.0-17.5) gm/dL Hct (39.0-53.0) % ABG pH (7.35-7.45) ABG HCO3 (21-25) mmol/L ABG O2 Saturation (94-97) % Chloride (98-107) mmol/L Carbon Dioxide (22-30) mmol/L BUN (9-20) mg/dL Creatinine (0.66-1.25) mg/dL Glucose (74-99) mg/dL POC Glucose (mg/dL) 135 H (75-99) mg/dL Calcium (8.4-10.2) mg/dL Microbiology - Last 24 Hours (Table) 01/19/19 14:20 Blood Culture - Final Blood No Growth after 144 hours Assessment and Plan Plan: #1 gangrene involving the right fifth toe with surrounding cellulitis Status post amputation of fourth and fifth toe with Dr. Bustillos. Patient is currently p ostop day 4. Possible discussion of below knee amputation rather than attempt at possible revascularization. Arterial Doppler completed, ALMA of the right 0.79. Per nursing staff patient is to have a BKA today with Dr. Bustillos. #2 sepsis present on admission as evidenced by fever, leukocytosis, and elevated lactic acid. White blood cell improving to 14.2 from 16. Lactic acid normalized, 0.7. Infectious disease is following. Patient remains on Zosyn for IV antibiotics #3 acute hypoxic and hypercapnic respiratory failure with altered mental status changes secondary to severe sepsis. Patient was transferred to the intensive care unit and placed on mechanical ventilation. Patient is sedated on propofol . Per nursing staff patient is following commands . Vent things 50 FiO2, PEEP 5. 500 tidal volume, rate 18. Critical care services are following. #4. Hypotension secondary to septic shock. Levophed currently off. Blood pressure has improved, systolic 130s to 150s. #5. Acute kidney injury secondary to ATN secondary to hypotension as well as vancomycin toxicity. Nephrology services are following. Ultrasound completed showing no evidence of hydronephrosis. Creatinine increasing to 4. 35 and bun 57. Per nephrology services maintain 0.9 normal saline at 50/ml, avoid ne phrotoxins. Vancomycin and lisinopril have been discontinued. continue to monitor urine output closely. Per nephrology discussion was held with family for possible renal replacement therapy. Diuretics on hold per nephrology services #6. history of essential hypertension. Cardiology services following. EF 50- 55%. Per cardiology services no evidence of acute coronary syndrome at this time #7. insulin-dependent diabetes mellitus, with poor control due to noncompliance last hemoglobin A1c was 9.8 at this time will hold glipizide, Januvia and metformin, and cover was insulin to sliding scale will adjust medications as needed. Blood sugars have been in the 200s after episode of hypoglycemia. Patient currently on insulin drip for tight blood sugar control #8. underlying history of diabetic complications of peripheral neuropathy and retinopathy. #9. poor compliance with medical management, patient had extensive counseling in the last year, his A1c was down to 7.1 in June however it was up to 9.8 again recently. #10 underlying history of hyperlipidemia maintained on atorvastatin, on hold. #11. Hypoglycemia. Home meds DC'd. Tube feedings have been initiated. Hypoglycemia has resolved #12. Suspected aspiration. Orogastric tube was coiled in the patient's mouth with tube feeds running. Tube was removed and replaced. Chest x-ray completed. Overall stable findings, no significant change from prior, bilateral small pleural effusions noted, CHF exacerbation versus fluid overload state. Repeat chest x-ray today per pulmonary. No acute changes made, no change in ABG. Infectious disease is following. DVT prophylaxis heparin. GI prophylaxis Protonix Patient remains in the intensive care unit on mechanical ventilation Critical care, vascular surgery, infectious disease, cardiology and nephrology services following
[2019-01-26] MEDS: CHLORHEXIDINE GLUCONATE 15 ML CUP MUCOUS MEM SCH ×2 (11:17→21:49)
[2019-01-26] MEDS: TIMOLOL 0.5% OPHTH DROPS 5 ML BTL LEFT EYE SCH ×2 (11:17→20:12)
[2019-01-26] MEDS: DORZOLAMIDE HCL 2% DROPS 10 ML BTL LEFT EYE SCH ×3 (11:17→22:33)
[2019-01-26] MEDS: BRIMONIDINE TARTRATE 0.2% DROPS 5 ML BTL LEFT EYE SCH ×3 (11:18→22:12)
[2019-01-26 11:49] LABS: Glucose,Whole Blood 129 mg/dL (75-99)
[2019-01-26] MEDS: GABAPENTIN 100 MG CAP PO SCH ×3 (12:35→21:47)
[2019-01-26] MEDS: PANTOPRAZOLE 40 MG/10 ML VIAL IV SCH (12:35)
[2019-01-26] MEDS: FLUoxetine HCL 20 MG CAP PO SCH (12:36)
[2019-01-26] MEDS: PIPERACILLIN-TAZOBACTAM 3.375 GM in SODIUM CHLORIDE 0.9% 100 ML IVPB SCH ×2 (12:36→21:46)
[2019-01-26 14:04] LABS: Glucose,Whole Blood 154 mg/dL (75-99)
--- NOTE | 2019-01-26 14:48 | P.PN ---
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, poor compliance, dyslipidemia, dehydration 01/26/2019, patient seen elizabeth examined during the rounds labs reviewed medications reviewed, patient has been on Lasix drip 10 mg an hour also on propofol drip 10 mcg, patient had a hemodialysis done here earlier today with intent to remove the fluid, patient will get another hemodialysis tomorrow as well, has placed patient on CPAP of 5 pressure support of 10 is spontaneously breathing the rate is about 16-18 and tidal volume 350-400 range, extensive amount of secretions are present still, patient is not ready not ready for extubation but however they're indeed ready for weaning would recommend continued to do hemodialysis on a daily basis for at least 3 or 4 days so that volume overload can be dealt with, right cell count is 12,000 and hemoglobin and hematocrit remained stable arterial blood gas reviewed still have significant metabolic acidosis, renal function continued decline progressively BUN and creatinine up to 84 and 5.2, remains on Zosyn, chest x-ray as above noted to have worsening changes due to fluid overload, culture not growing anything, insulin drip is on sugars better controlled now 01/24/2019, patient seen elizabeth reexamined during the rounds critical care time 35 minutes, patient has a weaning attempt with CPAP and pressure support but was not completed as patient is due for hemodialysis catheter placement in right femoral vein the renal service thinking about hemodialysis tomorrow breathing remains stable patient remains on assist control rate of 18 FiO2 of 50% 5 of PEEP, and renal function continued to deteriorate gradually being output slowly declining 01/23/2019, patient seen elizabeth examined during the rounds labs reviewed medications reviewed care plan discussed with the staff at length and had a short weaning attempt and a sedation holiday with which he tolerated for short period of time then becomes tachypneic put back on respirator fit. We'll patient has been diuresing fairly well has been negative for the first time, urine output of 30-40 mL an hour. BUN/creatinine remains stable, patient is postop day #1 of the BKA, chest x-ray from today reviewed findings are most suggestive of fluid overload less likely to be pneumonia, the ET tube and central line and NG tube was stable, white cell count is 13,000 arterial blood gases remained stable, BUN/creatinine gradually going up is 60 and 4.8 to, sugar is running on the higher side last check sugar was over 260 patient is being started on insulin drip 01/21/2019, patient seen and evaluated examined during the rounds labs reviewed medications reviewed, patient the remains on sedation with propofol mildly sedated he does wake up follow simple commands and munira -1-2, he remains on IV fluids gently being rehydrated 50 mL an hour to feed is being given this morning patient noted to have a tube coiling in the mouth as He is to have pulled out late morning hours, the need to be has been placed position has been confirmed chest x-ray continued to show for evidence of fluid overload and this should edema along with possible infiltrate, he remains on assist control rate of 18 and tidal volume of 505 of PEEP and oxygen is 50% he is +1.2 L since morning, care plan discussed with nephrology as well as the vascular surgery, as his BUN and creatinine continued to go up creatinine is 5.1 in spite of good adequate urine output, patient continue on broad-spectrum antibiotic when setting remains stable respiratory secretions are still thick tenacious and appears to be improv ing slowly, blood cultures and sputum culture has been negative, need to make eyes and nose on the negative side as well as would like to see been function improving before consideration of weaning that anticipate will take another 24- 48 hours 01/20/2019, patient seen eval examined during the rounds and labs reviewed medications reviewed critical care time spent 35 minutes, patient remains on ass ist control rate 18 and tidal volume of 500 along with PEEP of 5, patient is sedated with propofol drip but doesn't respond to simple stimuli, patient has been making good amount of urine levo fed is not require S patient is hemodynamically stable urine output has improved to 50-60 mL an hour post Lasix which is advised by nephrology service urine output has improved, patient has been tolerating tube feed well given that volume overload situation due to hypotension and was given fluid for resuscitation patient gently being diuresed, she he remains on broad-spectrum antibiotic sliding scale insulin labs reviewed medications reviewed care plan discussed with the staff and 2 brothers at bedside at length, chest x-ray from today reviewed bilateral atelectasis and fluid overload is present overall suggestive of more of his CHF and pneumonia, white cell count is stable, arterial blood gases improved, BUN/creatinine continue to go up 56 and 4.17, sugars have been stabilized 01/19/2019, patient seen and evaluated examined in the ICU intubated on full ventilator support, patient had gradual loss of consciousness has been more lethargic arterial blood gases were checked shows hypercapnic and hypoxic respiratory failure was intubated in the ICU, patient has been placed on propofol he was volume depleted depleted aggressive fluid resuscitation were performed, is still require levo fed intermittently, patient was also noted to be hypoglycemic 7030 insulin and other oral hypoglycemic agents were discontinued, ultrasound of the abdomen has been performed which is reviewed no obvious hydronephrosis seen, patient has decreased urine output along with rising BUN/creatinine appeared to be acute tubular necrosis, patient also requiring intermittent bolus of D10 for hypoglycemia, wounds has been evaluated by vascular surgery noted recommendation, patient has very poor venous access, will put a central line in, critical care time 45 minutes during procedure, due to altered mental status CT of the head was performed which was negative 01/18/2019, patient seen eval examined while covering for Dr. Granger, waking up this morning slightly slow to respond but not confused, breathing comfortably denies any chest pain labs reviewed today patient has been evaluated by Dr. Bassett, white cell count is coming down to 19,000, lactic acid level is normalized, patient has been on broad-spectrum antibiotics with vascular surgery on board Objective - Vital Signs Vital signs: Vital Signs Temp 98.3 F 01/26/19 08:00 Pulse 77 01/26/19 14:00 Resp 10 L 01/26/19 14:00 BP 151/70 01/26/19 14:00 Pulse Ox 97 01/26/19 14:00 Intake & Output 01/25/19 01/26/19 01/26/19 18:59 06:59 18:59 Intake Total 2580.234 5864.087 1151.868 Output Total 1994 1500 1255 Balance -983.079 -56.913 -103.132 Weight 122.2 kg Intake: IV 299 253 284 0.9 Normal Saline ( 39 33 24 pressure bag) at 3mL/hr Piperacillin-Tazobactam 3 100 .375 gm In Sodium Chloride 0.9% 100 ml @ 25 mls/hr IVPB Q12H [facility] Rx# :[id number] Sodium Chloride 0.9% 1, 260 220 160 000 ml @ 20 mls/hr IV . Q24H [place] Rx#:[id number] Intake, IV Titration 369.921 335.087 279.868 Amount Furosemide 100 mg In 89.833 88.167 100 Sodium Chloride 0.9% 90 ml @ 10 MG/HR 10 mls/hr IV .Q10H [place] Rx#: [id number] Insulin Regular 100 unit 62.174 67.232 9.359 In Sodium Chloride 0.9% 100 ml @ Per Protocol IV .Q0M [place] Rx#:[id number] Propofol 1,000 mg In 217.914 179.688 170.509 Empty Bag 1 bag @ Titrate IV .Q0M [place] Rx#: [id number] Tube Feeding 343 735 588 Other 120 Output: Urine 1395 1500 855 Stool 600 400 Other: Voiding Method Indwelling Catheter Indwelling Catheter Indwelling Catheter ABP, PAP, CO, CI - Last Documented Arterial Blood Pressure 145/75 - Exam Intubated on full vent support on propofol getting IV fluids normal saline due to hypotension one more fluid bolus being given In general patient is alert and oriented 3 while propofol was stopped s HEENT head normocephalic and atraumatic Neck is supple no JVD no goiter no lymphadenopathy Chest exam reveals a few scattered rhonchi no wheezing Cardiac exam reveals regular heart sounds S1 and S2 no gallops no murmurs Abdomen is soft nontender no organomegaly with normal bowel sounds Extremity exam status post right BKA Neuro no gross focal neurological deficit, patient has anisocoria - Labs CBC & Chem 7: 01/26/19 04:40 01/26/19 04:40 Labs: Abnormal Lab Results - Last 24 Hours (Table) 01/25/19 01/25/19 01/25/19 Range/Units 15:03 15:04 16:05 WBC (3.8-10.6) k/uL RBC (4.30-5.90) m/uL Hgb (13.0-17.5) gm/dL Hct (39.0-53.0) % ABG pH (7.35-7.45) ABG HCO3 (21-25) mmol/L ABG O2 Saturation (94-97) % Chloride (98-107) mmol/L Carbon Dioxide (22-30) mmol/L BUN (9-20) mg/dL Creatinine (0.66-1.25) mg/dL Glucose (74-99) mg/dL POC Glucose (mg/dL) 213 H 182 H 171 H (75-99) mg/dL Calcium (8.4-10.2) mg/dL 01/25/19 01/25/19 01/25/19 Range/Units 17:25 18:38 20:23 WBC (3.8-10.6) k/uL RBC (4.30-5.90) m/uL Hgb (13.0-17.5) gm/dL Hct (39.0-53.0) % ABG pH (7.35-7.45) ABG HCO3 (21-25) mmol/L ABG O2 Saturation (94-97) % Chloride (98-107) mmol/L Carbon Dioxide (22-30) mmol/L BUN (9-20) mg/dL Creatinine (0.66-1.25) mg/dL Glucose (74-99) mg/dL POC Glucose (mg/dL) 180 H 194 H 163 H (75-99) mg/dL Calcium (8.4-10.2) mg/dL 01/25/19 01/25/19 01/26/19 Range/Units 22:09 23:48 02:47 WBC (3.8-10.6) k/uL RBC (4.30-5.90) m/uL Hgb (13.0-17.5) gm/dL Hct (39.0-53.0) % ABG pH (7.35-7.45) ABG HCO3 (21-25) mmol/L ABG O2 Saturation (94-97) % Chloride (98-107) mmol/L Carbon Dioxide (22-30) mmol/L BUN (9-20) mg/dL Creatinine (0.66-1.25) mg/dL Glucose (74-99) mg/dL POC Glucose (mg/dL) 156 H 171 H 164 H (75-99) mg/dL Calcium (8.4-10.2) mg/dL 01/26/19 01/26/19 01/26/19 Range/Units 03:56 04:37 04:40 WBC (3.8-10.6) k/uL RBC (4.30-5.90) m/uL Hgb (13.0-17.5) gm/dL Hct (39.0-53.0) % ABG pH 7.27 L (7.35-7.45) ABG HCO3 19 L (21-25) mmol/L ABG O2 Saturation 97.6 H (94-97) % Chloride 116 H (98-107) mmol/L Carbon Dioxide 20 L (22-30) mmol/L BUN 84 H (9-20) mg/dL Creatinine 5.22 H (0.66-1.25) mg/dL Glucose 159 H (74-99) mg/dL POC Glucose (mg/dL) 156 H (75-99) mg/dL Calcium 7.7 L (8.4-10.2) mg/dL 01/26/19 01/26/19 01/26/19 Range/Units 04:40 05:51 08:31 WBC 12.0 H (3.8-10.6) k/uL RBC 3.22 L (4.30-5.90) m/uL Hgb 9.5 L (13.0-17.5) gm/dL Hct 29.5 L (39.0-53.0) % ABG pH (7.35-7.45) ABG HCO3 (21-25) mmol/L ABG O2 Saturation (94-97) % Chloride (98-107) mmol/L Carbon Dioxide (22-30) mmol/L BUN (9-20) mg/dL Creatinine (0.66-1.25) mg/dL Glucose (74-99) mg/dL POC Glucose (mg/dL) 149 H 135 H (75-99) mg/dL Calcium (8.4-10.2) mg/dL 01/26/19 01/26/19 01/26/19 Range/Units 10:00 11:48 14:03 WBC (3.8-10.6) k/uL RBC (4.30-5.90) m/uL Hgb (13.0-17.5) gm/dL Hct (39.0-53.0) % ABG pH (7.35-7.45) ABG HCO3 (21-25) mmol/L ABG O2 Saturation (94-97) % Chloride (98-107) mmol/L Carbon Dioxide (22-30) mmol/L BUN (9-20) mg/dL Creatinine (0.66-1.25) mg/dL Glucose (74-99) mg/dL POC Glucose (mg/dL) 131 H 129 H 154 H (75-99) mg/dL Calcium (8.4-10.2) mg/dL Microbiology - Last 24 Hours (Table) 01/19/19 14:20 Blood Culture - Final Blood No Growth after 144 hours Assessment and Plan Assessment: Altered mental status Hypoxic and hypercapnic respiratory failure Acute on chronic renal failure Bilateral atelectasis and possible aspiration pneumonia Fluid overload and acute interstitial edema Severe hypoglycemia 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 Sepsis and septic shock Insulin-dependent diabetes mellitus poorly controlled, being started on insulin drip Hypertension hypertensive cardiovascular disease Dyslipidemia Plan: We'll continue the weaning process patient on CPAP 5 pressure support 10 for 1 hour 2 times a day as tolerated with a sedation holiday Continue dialysis once patient is significantly negative and tolerated dialysis well and consider extubation which will likely be a compilation next 48-72 hours once fluid overload is compromised Continue vent support ventilated been adjusted Insulin drip, sugars are better controlled with that Monitor renal functions closely once patient is negative and renal function improving we will initiate the weaning process Patient observation monitored off of propofol does follow simple commands Will observe and monitor anisocoria Renal consultation and recommendations reviewed Continue gentle diuresis Broad-spectrum antibiotics Critical care time 35 minutes excluding procedure
[2019-01-26 15:07] LABS: Glucose,Whole Blood 166 mg/dL (75-99)
[2019-01-26 16:16] LABS: Glucose,Whole Blood 147 mg/dL (75-99)
[2019-01-26 18:31] LABS: Glucose,Whole Blood 153 mg/dL (75-99)
[2019-01-26] MEDS: LATANOPROST 0.005% OPHTH DROPS 2.5 ML BTL LEFT EYE SCH (20:01)
[2019-01-26 20:08] LABS: Glucose,Whole Blood 145 mg/dL (75-99)
[2019-01-26 22:09] LABS: Glucose,Whole Blood 170 mg/dL (75-99)
--- NOTE | 2019-01-26 23:19 | PN ---
PROGRESS NOTE DATE OF SERVICE: 01/26/2019. REASON FOR FOLLOWUP: Right diabetic foot infection and antibiotic management. HISTORY OF PRESENT ILLNESS: The patient is a 68-year-old male with a past medical history significant for diabetes mellitus, presented to the ER at [facility] on 01/15/2019 and this patient who did have diabetic foot infection with gangrene of his right 5th toe. The patient is status post amputation of right 5th toe. Subsequently did have worsening and is status post right [id number] amputation. The patient initial culture done on January 17 has been positive for Morganella, Enterococcus faecium avium and did have and anaerobic gram-negative bacilli. The patient has been on a combination of vancomycin and Zosyn. Vancomycin was subsequently discontinued hence the patient did go into renal failure and has been maintained on Zosyn until last night when the medication fell off from automatic stop. Hence, I was asked to see the patient for further management of antibiotics but the Zosyn has been restarted by the admitting services. The patient is currently intubated on the vent, he is hemodynamically stable. Not requiring a pressor support. Because of his worsening renal failure, the patient did get a right groin dialysis catheter with plan for dialysis. The patient also has significant diarrhea for which the patient did have a rectal management system and continued to have loose stools. Stool for C difficile has been negative. All of the information has been obtained from the review of the chart and talking with nursing staff as the patient intubated on the vent and unable to provide any history. REVIEW OF SYSTEMS: Could not be obtained because of his intubation and sedation. Past medical and surgical history reviewed. Medication reviewed. PHYSICAL EXAMINATION: Blood pressure 155/63, pulse of 73, temperature 98. He is 97% on 50% FiO2. General description is an elderly male lying in bed in no distress. HEENT: Shows slight pallor. No scleral icterus. The patient is orally intubated and limited examination of the oral cavity. LUNGS unlabored breathing with decreased breath sounds in the bases. No wheeze. HEART S1, S2. Regular rate and rhythm. ABDOMEN: Soft, no tenderness. EXTREMITIES: Right BKA stump looks clean. Currently with no evidence of any swelling, redness or drainage. NEUROLOGICALLY: The patient is currently sedated on the vent. LABS: BUN of 84, creatinine is 5.22. Hemoglobin is 11.5, white count of 12,000. UA has been negative. Stool for C dif multiple times has been negative. Blood cultures 01/19 negative. DIAGNOSTIC IMPRESSION AND PLAN: Patient with right diabetic foot infection Mayra's Grade IV in this patient who is status post initial right 5th toe amputation followed by a right [id number] amputation. This patient clinical course complicated by development of renal failure for which the patient may need to be dialyzed. The patient's right BKA stump currently looks clean. As infected part has been removed, the patient will not need to be on long-term antibiotic therapy as the patient was not bacteremic and currently with no other clinical focus of infection. Currently on Zosyn to continue. Monitor his clinical course closely. NEAL / GABON: [id number] /
[2019-01-27 00:28] LABS: Glucose,Whole Blood 140 mg/dL (75-99)
[2019-01-27] MEDS: HEPARIN SODIUM,PORCINE 5,000 UNIT/ML 1 ML VIAL SQ SCH ×4 (00:32→23:37)
[2019-01-27 02:09] LABS: Glucose,Whole Blood 146 mg/dL (75-99)
[2019-01-27] MEDS: INSULIN REGULAR 100 UNIT in SODIUM CHLORIDE 0.9% 100 ML IV SCH (02:27)
[2019-01-27 03:58] LABS: ABG Base Excess -6.5 mmol/L; ABG HCO3 20 mmol/L (21-25); ABG Oxygen Saturation 98.2 % (94-97); ABG PCO2 39 mmHg (35-45); ABG PH 7.31 (7.35-7.45); ABG PO2 112 mmHg (83-108); ABG TCO2 21 mmol/L (19-24); Allen Test Performed? Yes
[2019-01-27] MEDS: PROPOFOL 1,000 MG in EMPTY BAG 1 BAG IV SCH ×2 (04:25→18:16)
[2019-01-27 04:31] LABS: Glucose,Whole Blood 153 mg/dL (75-99)
[2019-01-27 04:50] LABS: Basophils # (A) 0.1 k/uL (0-0.2); Basophils % (A) 1 %; Eosinophils # (A) 0.4 k/uL (0-0.7); Eosinophils % (A) 3 %; HCT 27.3 % (39.0-53.0); HGB 8.9 gm/dL (13.0-17.5); Lymphocytes # (A) 1.1 k/uL (1.0-4.8); Lymphocytes % (A) 10 %; MCH 29.6 pg (25.0-35.0); MCHC 32.7 g/dL (31.0-37.0); MCV 90.7 fL (80.0-100.0); Mean Platelet Volume 10.8; Monocytes # (A) 0.5 k/uL (0-1.0); Monocytes % (A) 4 %; Neutrophils # (A) 9.6 k/uL (1.3-7.7); Neutrophils % (A) 81 %; Platelet Count 221 k/uL (150-450); RBC 3.01 m/uL (4.30-5.90); RDW 12.7 % (11.5-15.5); WBC 11.8 k/uL (3.8-10.6)
[2019-01-27 04:58] LABS: Albumin 2.2 g/dL (3.5-5.0); Calcium 7.6 mg/dL (8.4-10.2); Total Bilirubin 0.3 mg/dL (0.2-1.3); Total Protein 5.2 g/dL (6.3-8.2)
[2019-01-27 06:06] LABS: Glucose,Whole Blood 144 mg/dL (75-99)
[2019-01-27 07:56] LABS: Glucose,Whole Blood 179 mg/dL (75-99)
[2019-01-27] MEDS: FLUoxetine HCL 20 MG CAP PO SCH (08:46)
[2019-01-27] MEDS: CHLORHEXIDINE GLUCONATE 15 ML CUP MUCOUS MEM SCH ×2 (08:46→22:41)
[2019-01-27] MEDS: GABAPENTIN 100 MG CAP PO SCH ×3 (08:46→22:41)
[2019-01-27] MEDS: SODIUM CHLORIDE 0.9% 1,000 ML IV SCH ×2 (08:47→16:15)
[2019-01-27] MEDS: PANTOPRAZOLE 40 MG/10 ML VIAL IV SCH (08:47)
[2019-01-27] MEDS: NOREPINEPHRINE 4 MG in SODIUM CHLORIDE 0.9% 250 ML IV SCH ×2 (08:47→17:56)
[2019-01-27] MEDS: DORZOLAMIDE HCL 2% DROPS 10 ML BTL LEFT EYE SCH ×3 (09:05→22:43)
[2019-01-27] MEDS: BRIMONIDINE TARTRATE 0.2% DROPS 5 ML BTL LEFT EYE SCH ×3 (09:05→22:43)
[2019-01-27] MEDS: TIMOLOL 0.5% OPHTH DROPS 5 ML BTL LEFT EYE SCH ×2 (09:07→22:42)
[2019-01-27] MEDS: PIPERACILLIN-TAZOBACTAM 3.375 GM in SODIUM CHLORIDE 0.9% 100 ML IVPB SCH ×2 (09:08→22:41)
--- NOTE | 2019-01-27 09:11 | XR ---
EXAMINATION TYPE: XR chest 1V portable DATE OF EXAM: 01/27/2019 COMPARISON: 01/26/2019 HISTORY: Shortness of breath FINDINGS: There are bilateral pleural effusions with cardiomegaly and bibasilar infiltrate. There is a diffuse interstitial pattern. Central line, ET tube, NG tube are stable. Atherosclerotic change of the aorta . Hypertrophic and degenerative change of the spine. IMPRESSION: 1. Diffuse bilateral pleural-parenchymal changes correlate for CHF versus diffuse pneumonia.
[2019-01-27 10:21] LABS: Glucose,Whole Blood 157 mg/dL (75-99)
[2019-01-27 10:24] LABS: Hepatitis B Surface AB- Quant 3.5 mIU/mL; Hepatitis B Surface Antibody Non-Reactive (Non-Reactive)
[2019-01-27] MEDS: FUROSEMIDE 100 MG in SODIUM CHLORIDE 0.9% 90 ML IV SCH ×2 (10:51→18:42)
--- NOTE | 2019-01-27 11:30 | P.PN ---
Subjective Progress Note Date: 01/27/19 Refugio Saenz, is a 68-year-old male who presented to [facility] emergency room with pain in the right foot, he was evaluated in emergency room and had blackish discoloration of the right fifth toe with surrounding erythema and tenderness, patient was started on IV antibiotics Zosyn, vancomycin, and clindamycin, he was admitted to medical floor vascular surgery consultation was requested for possible amputation due to evidence of gangrene. Infectious disease consultation was requested. Patient has a known history of insulin-dependent diabetes mellitus, his glucose level was well controlled up until September of this year his A1c in June was 7.1 and in September was 7.3 however apparently patient stopped taking his insulin and his medications and his A1c was up to 9.8 in November, he has a known history of right foot ulcer he was admitted to the hospital with right foot cellulitis and ulcer in 2014 and he was followed at the wound care clinic in 2015 however he was doing well up until recently. Patient also has a known history of hypertension, hyperlipidemia, he denies any history of coronary artery disease or congestive heart failure, he had an echocardiogram done in 2014 at that time he had normal left ventricular function was normal ejection fraction, no significant valvular disease and no pulmonary hypertension. 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 On 01/17/2019 patient's alert and oriented 3. Patient had fourth and fifth toe amputation with Dr. Bustillos this morning. Patient having some low blood pressure will give 500 mL bolus. Patient denies chest pain or shortness of breath. Patient denies nausea vomiting or diarrhea. Patient is having some increased pain to foot area pain medications ordered 01/18/2019, patient seen eval examined while covering for Dr. Granger, waking up this morning slightly slow to respond but not confused, breathing comfortably denies any chest pain labs reviewed today patient has been evaluated by Dr. Bassett, white cell count is coming down to 19,000, lactic acid level is normalized, patient has been on broad-spectrum antibiotics with vascular surgery on board 01/19/2019, patient seen and evaluated examined in the ICU intubated on full ventilator support, patient had gradual loss of consciousness has been more lethargic arterial blood gases were checked shows hypercapnic and hypoxic respiratory failure was intubated in the ICU, patient has been placed on prop ofol he was volume depleted depleted aggressive fluid resuscitation were performed, is still requiring levophed intermittently, patient was also noted to be hypoglycemic 7030 insulin and other oral hypoglycemic agents were discontinued, ultrasound of the abdomen has been performed which is reviewed no obvious hydronephrosis seen, patient has decreased urine output along with rising BUN/creatinine appeared to be acute tubular necrosis, patient also requiring intermittent bolus of D10 for hypoglycemia, wounds has been evaluated by vascular surgery noted recommendation, patient has very poor venous access, will put a central line in, critical care time 45 minutes during procedure, due to altered mental status CT of the head was performed which was negative On 01/20/2019 patient remains in the intensive care unit on mechanical ventilation. Levophed has been on hold blood pressures has sustained. Creatinine has increased to 4.17 and bun 56. Nephrology services are following. Per nursing staff patient does follow commands during sedation holiday ABGs have improved. Discussed case with vascular surgeon nurse practitioner possible BKA discussion. White blood cell decreasing to 16.0. Critical care services are following. Patient remains on Zosyn for IV antibiotics. Infectious disease following 01/21/2019 patient remains on mechanical ventilation on in the intensive care unit. Patient remains sedated, on propofol. However per nursing staff patient does follow commands during sedation holiday. Patient is on 50% FiO2, 5 PEEP, tidal volume 500. Levophed off since 01/20/20. Blood pressure remains in the 130's-150's systolic. Creatinine 4.35 from 4.17 and BUN 57 from 56, Calcium 7.0, phosphorus 5.9 Nephrology is following. Orogastric tube replaced this morning. Per nursing staff OG tube was coiled in patient's mouth with tube feeds running. Chest x-ray repeated, no significant change from previous. ABG improving, still metabolic acidosis. WBC of 14.1 down from 16. Afebrile. Infectious disease is following patient is maintained on Zosyn. Will send C. diff sample due to new onset diarrhea for 1 day. Hyperglycemia noted (glucose 200's). Will discuss tube feed formula with dietary. If no changes can be made will adjust sliding scale. On 01/22/2019 patient remains sedated on mechanical ventilation in the intensive care unit. Per nursing staff patient is to have a BKA today with Dr. Bustillos. Patient remains off pressors, blood pressure has been stable. Chest x-ray repeated this morning, per pulmonary. No significant change in ABGs. Creatinine continues to increase, 4.84 today BUN 60, patient is still making adequate urine output nephrology is following. Tube feeds on hold, for pending OR. WBC 14.2, temperature overnight 100F. Please is following patient is maintained on Zosyn. C. diff sample was negative. 01/23/2019 patient remains sedated and on mechanical ventilation in the ICU. He underwent right BKA yesterday, 01/22/[address] Bustillos. Estimated blood loss 150 mL. He had a temp of 100 last night. Urine output is about 50 mL per hour. Creatinine has gone down from 4.84-4.82. Nephrology is following closely. No plans for hemodialysis yet. Patient's blood sugars are starting to become more elevated. They're in the 180s to 200s. Tube feedings are being adjusted. White count 13.7 hemoglobin 10.3 On 01/24/2019 patient remains sedated on mechanical ventilation in the intensive care unit. Decreased urine output throughout night. Creatinine 5.15 and bun 68. Patient remains on insulin drip. WBC 14.1. Patient having low-grade temps. Patient remains closely followed by critical care consulting providers On 01/25/2019 patient was seen and examined in the intensive care unit, he is currently alert and maintained on BiPAP trial, he is making more urine output, and no hemodialysis is scheduled at this time, creatinine improved, down from 5.15-4.44 white blood count down to 11.3 patient is followed by nephrology, infectious disease, pulmonary and critical care and vascular surgery On 01/26/2019 patient was seen and examined in the ICU, he is intubated sedated maintained on mechanical ventilation, creatinine went up today and he was started on hemodialysis, Zosyn has today, at this time will resume Zosyn, we have asked infectious disease to see patient and reassess antibiotics, otherwise patient is stable there is no fever or chills, he continues to have a rectal tube and having large amount of diarrhea, C. diff was checked and was negative will repeat test today. On 01/27/2019 patient remains on mechanical ventilation in the intensive care unit. Creatinine trending down today 4.76 and bun 77. Patient remains on Lasix drip per nephrology services. White count 11.8. She remains on IV Zosyn. Sedation holiday performed per nursing staff and critical care recommendation. Objective - Vital Signs Vital signs: Vital Signs Temp 98.4 F 01/27/19 08:00 Pulse 67 01/27/19 11:00 Resp 24 01/27/19 11:00 BP 151/70 01/26/19 16:00 Pulse Ox 97 01/27/19 11:00 Intake & Output 01/26/19 01/27/19 01/27/19 18:59 06:59 18:59 Intake Total 8623.867 4839.840 658.603 Output Total 1680 970 405 Balance -139.960 521.840 253.603 Weight 121.4 kg 121.4 kg Intake: IV 376 276 140.0 0.9 Normal Saline ( 36 36 15 pressure bag) at 3mL/hr Piperacillin-Tazobactam 3 100 .375 gm In Sodium Chloride 0.9% 100 ml @ 25 mls/hr IVPB Q12H [place] Rx# :[id number] Piperacillin-Tazobactam 3 25.0 .375 gm In Sodium Chloride 0.9% 100 ml @ 25 mls/hr IVPB Q12HR [place] Rx #:[id number] Sodium Chloride 0.9% 1, 240 240 100 000 ml @ 20 mls/hr IV . Q24H [place] Rx#:[id number] Intake, IV Titration 331.040 311.840 163.603 Amount Furosemide 100 mg In 100 88.833 100 Sodium Chloride 0.9% 90 ml @ 10 MG/HR 10 mls/hr IV .Q10H [place] Rx#: [id number] Insulin Regular 100 unit 16.783 44.331 14.258 In Sodium Chloride 0.9% 100 ml @ Per Protocol IV .Q0M [place] Rx#:[id number] Piperacillin-Tazobactam 3 12.5 .375 gm In Sodium Chloride 0.9% 100 ml @ 25 mls/hr IVPB Q12HR [place] Rx #:[id number] Propofol 1,000 mg In 214.257 178.676 36.845 Empty Bag 1 bag @ Titrate IV .Q0M [place] Rx#: [id number] Tube Feeding 833 784 245 Other 120 110 Output: Urine 1280 970 405 Stool 400 Other: Voiding Method Indwelling Catheter Indwelling Catheter ABP, PAP, CO, CI - Last Documented Arterial Blood Pressure 150/45 - Exam Patient sedated this morning. Full neuro exam unable to obtain HEENT head normocephalic and atraumatic Neck is supple no JVD no goiter no lymphadenopathy Chest exam reveals diminished lung sounds, a few scattered rhonchi no wheezing Cardiac exam reveals regular heart sounds S1 and S2 no gallops no murmurs Abdomen is obese, soft nontender no organomegaly with normal bowel sounds Extremity right BKA. Dressing is clean dry and intact Neuro no gross focal neurological deficit. Patient sedated on mechanical ventilation - Labs CBC & Chem 7: 01/27/19 04:30 01/27/19 04:30 Labs: Abnormal Lab Results - Last 24 Hours (Table) 01/26/19 01/26/19 01/26/19 Range/Units 11:48 14:03 15:06 WBC (3.8-10.6) k/uL RBC (4.30-5.90) m/uL Hgb (13.0-17.5) gm/dL Hct (39.0-53.0) % Neutrophils # (1.3-7.7) k/uL ABG pH (7.35-7.45) ABG pO2 (83-108) mmHg ABG HCO3 (21-25) mmol/L ABG O2 Saturation (94-97) % Chloride (98-107) mmol/L Carbon Dioxide (22-30) mmol/L BUN (9-20) mg/dL Creatinine (0.66-1.25) mg/dL Glucose (74-99) mg/dL POC Glucose (mg/dL) 129 H 154 H 166 H (75-99) mg/dL Calcium (8.4-10.2) mg/dL Total Protein (6.3-8.2) g/dL Albumin (3.5-5.0) g/dL 01/26/19 01/26/19 01/26/19 Range/Units 16:15 18:30 20:06 WBC (3.8-10.6) k/uL RBC (4.30-5.90) m/uL Hgb (13.0-17.5) gm/dL Hct (39.0-53.0) % Neutrophils # (1.3-7.7) k/uL ABG pH (7.35-7.45) ABG pO2 (83-108) mmHg ABG HCO3 (21-25) mmol/L ABG O2 Saturation (94-97) % Chloride (98-107) mmol/L Carbon Dioxide (22-30) mmol/L BUN (9-20) mg/dL Creatinine (0.66-1.25) mg/dL Glucose (74-99) mg/dL POC Glucose (mg/dL) 147 H 153 H 145 H (75-99) mg/dL Calcium (8.4-10.2) mg/dL Total Protein (6.3-8.2) g/dL Albumin (3.5-5.0) g/dL 01/26/19 01/27/19 01/27/19 Range/Units 22:07 00:27 02:07 WBC (3.8-10.6) k/uL RBC (4.30-5.90) m/uL Hgb (13.0-17.5) gm/dL Hct (39.0-53.0) % Neutrophils # (1.3-7.7) k/uL ABG pH (7.35-7.45) ABG pO2 (83-108) mmHg ABG HCO3 (21-25) mmol/L ABG O2 Saturation (94-97) % Chloride (98-107) mmol/L Carbon Dioxide (22-30) mmol/L BUN (9-20) mg/dL Creatinine (0.66-1.25) mg/dL Glucose (74-99) mg/dL POC Glucose (mg/dL) 170 H 140 H 146 H (75-99) mg/dL Calcium (8.4-10.2) mg/dL Total Protein (6.3-8.2) g/dL Albumin (3.5-5.0) g/dL 01/27/19 01/27/19 01/27/19 Range/Units 03:55 04:28 04:30 WBC 11.8 H (3.8-10.6) k/uL RBC 3.01 L (4.30-5.90) m/uL Hgb 8.9 L (13.0-17.5) gm/dL Hct 27.3 L (39.0-53.0) % Neutrophils # 9.6 H (1.3-7.7) k/uL ABG pH 7.31 L (7.35-7.45) ABG pO2 112 H (83-108) mmHg ABG HCO3 20 L (21-25) mmol/L ABG O2 Saturation 98.2 H (94-97) % Chloride (98-107) mmol/L Carbon Dioxide (22-30) mmol/L BUN (9-20) mg/dL Creatinine (0.66-1.25) mg/dL Glucose (74-99) mg/dL POC Glucose (mg/dL) 153 H (75-99) mg/dL Calcium (8.4-10.2) mg/dL Total Protein (6.3-8.2) g/dL Albumin (3.5-5.0) g/dL 01/27/19 01/27/19 01/27/19 Range/Units 04:30 06:04 07:55 WBC (3.8-10.6) k/uL RBC (4.30-5.90) m/uL Hgb (13.0-17.5) gm/dL Hct (39.0-53.0) % Neutrophils # (1.3-7.7) k/uL ABG pH (7.35-7.45) ABG pO2 (83-108) mmHg ABG HCO3 (21-25) mmol/L ABG O2 Saturation (94-97) % Chloride 112 H (98-107) mmol/L Carbon Dioxide 19 L (22-30) mmol/L BUN 77 H (9-20) mg/dL Creatinine 4.76 H (0.66-1.25) mg/dL Glucose 147 H (74-99) mg/dL POC Glucose (mg/dL) 144 H 179 H (75-99) mg/dL Calcium 7.6 L (8.4-10.2) mg/dL Total Protein 5.2 L (6.3-8.2) g/dL Albumin 2.2 L (3.5-5.0) g/dL 01/27/19 Range/Units 10:19 WBC (3.8-10.6) k/uL RBC (4.30-5.90) m/uL Hgb (13.0-17.5) gm/dL Hct (39.0-53.0) % Neutrophils # (1.3-7.7) k/uL ABG pH (7.35-7.45) ABG pO2 (83-108) mmHg ABG HCO3 (21-25) mmol/L ABG O2 Saturation (94-97) % Chloride (98-107) mmol/L Carbon Dioxide (22-30) mmol/L BUN (9-20) mg/dL Creatinine (0.66-1.25) mg/dL Glucose (74-99) mg/dL POC Glucose (mg/dL) 157 H (75-99) mg/dL Calcium (8.4-10.2) mg/dL Total Protein (6.3-8.2) g/dL Albumin (3.5-5.0) g/dL Assessment and Plan Assessment: #1 gangrene involving the right fifth toe with surrounding cellulitis Status post amputation of fourth and fifth toe with Dr. Bustillos. Patient is currently postop day 4. Possible discussion of below knee amputation rather than attempt at possible revascularization. Arterial Doppler completed, ALMA of the right 0.79. Status post right BKA per vascular surgery #2 sepsis present on admission as evidenced by fever, leukocytosis, and elevated lactic acid. White blood cell improving to 14.2 from 16. Lactic acid normalized, 0.7. Infectious disease is following. Patient remains on Zosyn for IV antibiotics #3 acute hypoxic and hypercapnic respiratory failure with altered mental status changes secondary to severe sepsis. Patient was transferred to the intensive care unit and placed on mechanical ventilation. Patient is sedated on propofol . Per nursing staff patient is following commands . Vent things 50 FiO2, PEEP 5. 500 tidal volume, rate 18. Critical care services are following. #4. Hypotension secondary to septic shock. Levophed currently off. Blood pressure has improved, systolic 130s to 150s. #5. Acute kidney injury secondary to ATN secondary to hypotension as well as vancomycin toxicity. Nephrology services are following. Ultrasound completed showing no evidence of hydronephrosis. Creatinine increasing to 4. 35 and bun 57. Per nephrology services maintain 0.9 normal saline at 50/ml, avoid nephrotoxins. Vancomycin and lisinopril have been discontinued. continue to monitor urine output closely. Status post hemodialysis per nephrology services. Patient currently maintained on Lasix drip per nephrology creatinine did trend down to 4.76. #6. history of essential hypertension. Cardiology services following. EF 50- 55%. Per cardiology services no evidence of acute coronary syndrome at this time #7. insulin-dependent diabetes mellitus, with poor control due to noncompliance last hemoglobin A1c was 9.8 at this time will hold glipizide, Januvia and metformin, and cover was insulin to sliding scale will adjust medications as needed. Blood sugars have been in the 200s after episode of hypoglycemia. Addi bailey currently on insulin drip for tight blood sugar control #8. underlying history of diabetic complications of peripheral neuropathy and retinopathy. #9. poor compliance with medical management, patient had extensive counseling in the last year, his A1c was down to 7.1 in June however it was up to 9.8 again recently. #10 underlying history of hyperlipidemia maintained on atorvastatin, on hold. #11. Hypoglycemia. Home meds DC'd. Tube feedings have been initiated. Hypoglycemia has resolved #12. Suspected aspiration. Orogastric tube was coiled in the patient's mouth with tube feeds running. Tube was removed and replaced. Chest x-ray completed. Overall stable findings, no significant change from prior, bilateral small pleural effusions noted, CHF exacerbation versus fluid overload state. Repeat chest x-ray today per pulmonary. No acute changes made, no change in ABG. Infe ctious disease is following. DVT prophylaxis heparin. GI prophylaxis Protonix Patient remains in the intensive care unit on mechanical ventilation Critical care, vascular surgery, infectious disease, cardiology and nephrology services following I performed an examination of the patient and discussed their management with the Nurse Practitioner. I have reviewed the Nurse Practitioner's notes and agree with the documented findings and plan of care
[2019-01-27 11:55] LABS: Glucose,Whole Blood 172 mg/dL (75-99)
[2019-01-27 12:24] LABS: Glucose,Whole Blood 166 mg/dL (75-99)
[2019-01-27] MEDS: MORPHINE SULFATE 2 MG/ML SYRINGE IVP PRN ×2 (13:02→20:38)
[2019-01-27 13:15] LABS: Hepatitis B Surface Antigen Reactive (Non-Reactive)
--- NOTE | 2019-01-27 13:34 | P.PN ---
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, poor compliance, dyslipidemia, dehydration 01/27/2019, patient seen eval examined during the rounds patient is due for dialysis today, remains on full vent setting but however undergoing CPAP pressure support trial with 5 and 10 tolerating very well, per support will be decreased to 5, patient is due for another dialysis later on today, tomorrow will do the CPAP and pressure support and check a blood gas afterwards if does well then possibly extubate, chest x-ray continue show bilateral basilar atelectasis but overall they remained stable labs reviewed medications reviewed care plan discussed with the respiratory therapist and staff auditor at length critical care time spent 35 minutes 01/26/2019, patient seen eval examined during the rounds labs reviewed medications reviewed, patient has been on Lasix drip 10 mg an hour also on propofol drip 10 mcg, patient had a hemodialysis done here earlier today with intent to remove the fluid, patient will get another hemodialysis tomorrow as well, has placed patient on CPAP of 5 pressure support of 10 is spontaneously breathing the rate is about 16-18 and tidal volume 350-400 range, extensive amount of secretions are present still, patient is not ready not ready for extubation but however they're indeed ready for weaning would recommend continued to do hemodialysis on a daily basis for at least 3 or 4 days so that volume overload can be dealt with, right cell count is 12,000 and hemoglobin and hematocrit remained stable arterial blood gas reviewed still have significant metabolic acidosis, renal function continued decline progressively BUN and creatinine up to 84 and 5.2, remains on Zosyn, chest x-ray as above noted to have worsening changes due to fluid overload, culture not growing anything, insulin drip is on sugars better controlled now 01/24/2019, patient seen evlilli reexamined during the rounds critical care time 35 minutes, patient has a weaning attempt with CPAP and pressure support but was not completed as patient is due for hemodialysis catheter placement in right femoral vein the renal service thinking about hemodialysis tomorrow breathing remains stable patient remains on assist control rate of 18 FiO2 of 50% 5 of PEEP, and renal function continued to deteriorate gradually being output slowly declining 01/23/2019, patient seen evlilli examined during the rounds labs reviewed medications reviewed care plan discussed with the staff at length and had a short weaning attempt and a sedation holiday with which he tolerated for short period of time then becomes tachypneic put back on respirator fit. We'll patient has been diuresing fairly well has been negative for the first time, urine output of 30-40 mL an hour. BUN/creatinine remains stable, patient is postop day #1 of the BKA, chest x-ray from today reviewed findings are most suggestive of fluid overload less likely to be pneumonia, the ET tube and central line and NG tube was stable, white cell count is 13,000 arterial blood gases remained stable, BUN/creatinine gradually going up is 60 and 4.8 to, sugar is running on the higher side last check sugar was over 260 patient is being started on insulin drip 01/21/2019, patient seen and evaluated examined during the rounds labs reviewed medications reviewed, patient the remains on sedation with propofol mildly sedated he does wake up follow simple commands and munira -1-2, he remains on IV fluids gently being rehydrated 50 mL an hour to feed is being given this morning patient noted to have a tube coiling in the mouth as He is to have pulled out late morning hours, the need to be has been placed position has been confirmed chest x-ray continued to show for evidence of fluid overload and this should edema along with possible infiltrate, he remains on assist control rate of 18 and tidal volume of 505 of PEEP and oxygen is 50% he is +1.2 L since morning, care plan discussed with nephrology as well as the vascular surgery, as his BUN and creatinine continued to go up creatinine is 5.1 in spite of good adequate urine output, patient continue on broad-spectrum antibiotic when setting remains stable respiratory secretions are still thick tenacious and appears to be improving slowly, blood cultures and sputum culture has been negative, need to make eyes and nose on the negative side as well as would like to see been funct ion improving before consideration of weaning that anticipate will take another 24-48 hours 01/20/2019, patient seen evlilli examined during the rounds and labs reviewed medications reviewed critical care time spent 35 minutes, patient remains on assist control rate 18 and tidal volume of 500 along with PEEP of 5, patient is sedated with propofol drip but doesn't respond to simple stimuli, patient has been making good amount of urine levo fed is not require S patient is hemodynamically stable urine output has improved to 50-60 mL an hour post Lasix which is advised by nephrology service urine output has improved, patient has been tolerating tube feed well given that volume overload situation due to hypotension and was given fluid for resuscitation patient gently being diuresed, she he remains on broad-spectrum antibiotic sliding scale insulin labs reviewed medications reviewed care plan discussed with the staff and 2 brothers at bedside at length, chest x-ray from today reviewed bilateral atelectasis and fluid overload is present overall suggestive of more of his CHF and pneumonia, white cell count is stable, arterial blood gases improved, BUN/creatinine continue to go up 56 and 4.17, sugars have been stabilized 01/19/2019, patient seen and evaluated examined in the ICU intubated on full ventilator support, patient had gradual loss of consciousness has been more lethargic arterial blood gases were checked shows hypercapnic and hypoxic respiratory failure was intubated in the ICU, patient has been placed on propofol he was volume depleted depleted aggressive fluid resuscitation were performed, is still require levo fed intermittently, patient was also noted to be hypoglycemic 7030 insulin and other oral hypoglycemic agents were discontinued, ultrasound of the abdomen has been performed which is reviewed no obvious hydronephrosis seen, patient has decreased urine output along with rising BUN/creatinine appeared to be acute tubular necrosis, patient also requiring intermittent bolus of D10 for hypoglycemia, wounds has been evaluated by vascular surgery noted recommendation, patient has very poor venous access, will put a central line in, critical care time 45 minutes during procedure, due to altered mental status CT of the head was performed which was negative 01/18/2019, patient seen eval examined while covering for Dr. Granger, waking up this morning slightly slow to respond but not confused, breathing comfortably denies any chest pain labs reviewed today patient has been evaluated by Dr. Bassett, white cell count is coming down to 19,000, lactic acid level is normalized, patient has been on broad-spectrum antibiotics with vascular surgery on board Objective - Vital Signs Vital signs: Vital Signs Temp 98.7 F 01/27/19 12:00 Pulse 72 01/27/19 13:00 Resp 20 01/27/19 13:00 BP 151/70 01/26/19 16:00 Pulse Ox 98 01/27/19 13:00 Intake & Output 01/26/19 01/27/19 01/27/19 18:59 06:59 18:59 Intake Total 7203.523 1841.840 867.560 Output Total 1680 970 655 Balance -139.960 521.840 212.560 Weight 121.4 kg 121.4 kg Intake: IV 376 276 211.0 0.9 Normal Saline ( 36 36 21 pressure bag) at 3mL/hr Piperacillin-Tazobactam 3 100 .375 gm In Sodium Chloride 0.9% 100 ml @ 25 mls/hr IVPB Q12H [place] Rx# :[id number] Piperacillin-Tazobactam 3 50.0 .375 gm In Sodium Chloride 0.9% 100 ml @ 25 mls/hr IVPB Q12HR [place] Rx #:[id number] Sodium Chloride 0.9% 1, 240 240 140 000 ml @ 20 mls/hr IV . Q24H [place] Rx#:[id number] Intake, IV Titration 331.040 311.840 173.560 Amount Furosemide 100 mg In 100 88.833 100 Sodium Chloride 0.9% 90 ml @ 10 MG/HR 10 mls/hr IV .Q10H [place] Rx#: [id number] Insulin Regular 100 unit 16.783 44.331 24.215 In Sodium Chloride 0.9% 100 ml @ Per Protocol IV .Q0M [place] Rx#:[id number] Piperacillin-Tazobactam 3 12.5 .375 gm In Sodium Chloride 0.9% 100 ml @ 25 mls/hr IVPB Q12HR [place] Rx #:[id number] Propofol 1,000 mg In 214.257 178.676 36.845 Empty Bag 1 bag @ Titrate IV .Q0M [place] Rx#: [id number] Tube Feeding 833 784 343 Other 120 140 Output: Urine 1280 970 655 Stool 400 Other: Voiding Method Indwelling Catheter Indwelling Catheter Indwelling Catheter ABP, PAP, CO, CI - Last Documented Arterial Blood Pressure 168/60 - Exam Intubated on full vent support on propofol getting IV fluids normal saline due to hypotension one more fluid bolus being given In general patient is alert and oriented 3 while propofol was stopped s HEENT head normocephalic and atraumatic Neck is supple no JVD no goiter no lymphadenopathy Chest exam reveals a few scattered rhonchi no wheezing Cardiac exam reveals regular heart sounds S1 and S2 no gallops no murmurs Abdomen is soft nontender no organomegaly with normal bowel sounds Extremity exam status post right BKA Neuro no gross focal neurological deficit, patient has anisocoria - Labs CBC & Chem 7: 01/27/19 04:30 01/27/19 04:30 Labs: Abnormal Lab Results - Last 24 Hours (Table) 01/26/19 01/26/19 01/26/19 Range/Units 04:40 14:03 15:06 WBC (3.8-10.6) k/uL RBC (4.30-5.90) m/uL Hgb (13.0-17.5) gm/dL Hct (39.0-53.0) % Neutrophils # (1.3-7.7) k/uL ABG pH (7.35-7.45) ABG pO2 (83-108) mmHg ABG HCO3 (21-25) mmol/L ABG O2 Saturation (94-97) % Chloride (98-107) mmol/L Carbon Dioxide (22-30) mmol/L BUN (9-20) mg/dL Creatinine (0.66-1.25) mg/dL Glucose (74-99) mg/dL POC Glucose (mg/dL) 154 H 166 H (75-99) mg/dL Calcium (8.4-10.2) mg/dL Total Protein (6.3-8.2) g/dL Albumin (3.5-5.0) g/dL Hep Bs Antigen Reactive H (Non-Reactive) 01/26/19 01/26/19 01/26/19 Range/Units 16:15 18:30 20:06 WBC (3.8-10.6) k/uL RBC (4.30-5.90) m/uL Hgb (13.0-17.5) gm/dL Hct (39.0-53.0) % Neutrophils # (1.3-7.7) k/uL ABG pH (7.35-7.45) ABG pO2 (83-108) mmHg ABG HCO3 (21-25) mmol/L ABG O2 Saturation (94-97) % Chloride (98-107) mmol/L Carbon Dioxide (22-30) mmol/L BUN (9-20) mg/dL Creatinine (0.66-1.25) mg/dL Glucose (74-99) mg/dL POC Glucose (mg/dL) 147 H 153 H 145 H (75-99) mg/dL Calcium (8.4-10.2) mg/dL Total Protein (6.3-8.2) g/dL Albumin (3.5-5.0) g/dL Hep Bs Antigen (Non-Reactive) 01/26/19 01/27/19 01/27/19 Range/Units 22:07 00:27 02:07 WBC (3.8-10.6) k/uL RBC (4.30-5.90) m/uL Hgb (13.0-17.5) gm/dL Hct (39.0-53.0) % Neutrophils # (1.3-7.7) k/uL ABG pH (7.35-7.45) ABG pO2 (83-108) mmHg ABG HCO3 (21-25) mmol/L ABG O2 Saturation (94-97) % Chloride (98-107) mmol/L Carbon Dioxide (22-30) mmol/L BUN (9-20) mg/dL Creatinine (0.66-1.25) mg/dL Glucose (74-99) mg/dL POC Glucose (mg/dL) 170 H 140 H 146 H (75-99) mg/dL Calcium (8.4-10.2) mg/dL Total Protein (6.3-8.2) g/dL Albumin (3.5-5.0) g/dL Hep Bs Antigen (Non-Reactive) 01/27/19 01/27/19 01/27/19 Range/Units 03:55 04:28 04:30 WBC 11.8 H (3.8-10.6) k/uL RBC 3.01 L (4.30-5.90) m/uL Hgb 8.9 L (13.0-17.5) gm/dL Hct 27.3 L (39.0-53.0) % Neutrophils # 9.6 H (1.3-7.7) k/uL ABG pH 7.31 L (7.35-7.45) ABG pO2 112 H (83-108) mmHg ABG HCO3 20 L (21-25) mmol/L ABG O2 Saturation 98.2 H (94-97) % Chloride (98-107) mmol/L Carbon Dioxide (22-30) mmol/L BUN (9-20) mg/dL Creatinine (0.66-1.25) mg/dL Glucose (74-99) mg/dL POC Glucose (mg/dL) 153 H (75-99) mg/dL Calcium (8.4-10.2) mg/dL Total Protein (6.3-8.2) g/dL Albumin (3.5-5.0) g/dL Hep Bs Antigen (Non-Reactive) 01/27/19 01/27/19 01/27/19 Range/Units 04:30 06:04 07:55 WBC (3.8-10.6) k/uL RBC (4.30-5.90) m/uL Hgb (13.0-17.5) gm/dL Hct (39.0-53.0) % Neutrophils # (1.3-7.7) k/uL ABG pH (7.35-7.45) ABG pO2 (83-108) mmHg ABG HCO3 (21-25) mmol/L ABG O2 Saturation (94-97) % Chloride 112 H (98-107) mmol/L Carbon Dioxide 19 L (22-30) mmol/L BUN 77 H (9-20) mg/dL Creatinine 4.76 H (0.66-1.25) mg/dL Glucose 147 H (74-99) mg/dL POC Glucose (mg/dL) 144 H 179 H (75-99) mg/dL Calcium 7.6 L (8.4-10.2) mg/dL Total Protein 5.2 L (6.3-8.2) g/dL Albumin 2.2 L (3.5-5.0) g/dL Hep Bs Antigen (Non-Reactive) 01/27/19 01/27/19 01/27/19 Range/Units 10:19 11:53 12:22 WBC (3.8-10.6) k/uL RBC (4.30-5.90) m/uL Hgb (13.0-17.5) gm/dL Hct (39.0-53.0) % Neutrophils # (1.3-7.7) k/uL ABG pH (7.35-7.45) ABG pO2 (83-108) mmHg ABG HCO3 (21-25) mmol/L ABG O2 Saturation (94-97) % Chloride (98-107) mmol/L Carbon Dioxide (22-30) mmol/L BUN (9-20) mg/dL Creatinine (0.66-1.25) mg/dL Glucose (74-99) mg/dL POC Glucose (mg/dL) 157 H 172 H 166 H (75-99) mg/dL Calcium (8.4-10.2) mg/dL Total Protein (6.3-8.2) g/dL Albumin (3.5-5.0) g/dL Hep Bs Antigen (Non-Reactive) Assessment and Plan Assessment: Altered mental status Hypoxic and hypercapnic respiratory failure Acute on chronic renal failure Bilateral atelectasis and possible aspiration pneumonia Fluid overload and acute interstitial edema Severe hypoglycemia 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 Sepsis and septic shock Insulin-dependent diabetes mellitus poorly controlled, being started on insulin drip Hypertension hypertensive cardiovascular disease Dyslipidemia Plan: We'll continue the weaning process patient on CPAP 5 pressure support 5 for 1 hour 3 times a day as tolerated with a sedation holiday, possibly weaning extubation tomorrow Continue dialysis once patient is significantly negative and tolerated dialysis well and consider extubation which will likely be a compilation next 48-72 hours once fluid overload is compromised Continue vent support ventilated been adjusted Insulin drip, sugars are better controlled with that Monitor renal functions closely once patient is negative and renal function improving we will initiate the weaning process Patient observation monitored off of propofol does follow simple commands Will observe and monitor anisocoria Renal consultation and recommendations reviewed Continue gentle diuresis Broad-spectrum antibiotics Critical care time 35 minutes excluding procedure Time with Patient: Greater than 30
--- NOTE | 2019-01-27 13:47 | P.PN ---
Subjective Progress Note Date: 01/27/19 Patient seen and examined. Patient remains intubated and sedated. Per nursing patient has had a sedation holiday. Patient is post right [id number] amputation. Patient had placement of temporary dialysis catheter on 01/24, for acute worsening kidney failure, BUN and creatinine trending down. Patient remains afebrile. Objective - Vital Signs Vital signs: Vital Signs Temp 98.7 F 01/27/19 12:00 Pulse 72 01/27/19 13:00 Resp 20 01/27/19 13:00 BP 151/70 01/26/19 16:00 Pulse Ox 98 01/27/19 13:00 Intake & Output 01/26/19 01/27/19 01/27/19 18:59 06:59 18:59 Intake Total 6887.524 3022.840 867.560 Output Total 1680 970 655 Balance -139.960 521.840 212.560 Weight 121.4 kg 121.4 kg Intake: IV 376 276 211.0 0.9 Normal Saline ( 36 36 21 pressure bag) at 3mL/hr Piperacillin-Tazobactam 3 100 .375 gm In Sodium Chloride 0.9% 100 ml @ 25 mls/hr IVPB Q12H [place] Rx# :[id number] Piperacillin-Tazobactam 3 50.0 .375 gm In Sodium Chloride 0.9% 100 ml @ 25 mls/hr IVPB Q12HR [place] Rx #:[id number] Sodium Chloride 0.9% 1, 240 240 140 000 ml @ 20 mls/hr IV . Q24H [place] Rx#:[id number] Intake, IV Titration 331.040 311.840 173.560 Amount Furosemide 100 mg In 100 88.833 100 Sodium Chloride 0.9% 90 ml @ 10 MG/HR 10 mls/hr IV .Q10H [place] Rx#: [id number] Insulin Regular 100 unit 16.783 44.331 24.215 In Sodium Chloride 0.9% 100 ml @ Per Protocol IV .Q0M [place] Rx#:[id number] Piperacillin-Tazobactam 3 12.5 .375 gm In Sodium Chloride 0.9% 100 ml @ 25 mls/hr IVPB Q12HR [place] Rx #:[id number] Propofol 1,000 mg In 214.257 178.676 36.845 Empty Bag 1 bag @ Titrate IV .Q0M COUNTS INCLUDE 234 BEDS AT [facility] Rx#: [id number] Tube Feeding 833 784 343 Other 120 140 Output: Urine 1280 970 655 Stool 400 Other: Voiding Method Indwelling Catheter Indwelling Catheter Indwelling Catheter ABP, PAP, CO, CI - Last Documented Arterial Blood Pressure 168/60 - Exam General appearance: In no acute distress, intubated and sedated at this time Heart: S1 S2. Regular rate and rhythm. Lungs: No crackles or wheezes are heard, few scattered rhonchi Extremities: Right lower extremity with dressing and nahun wrap, removed. Surgical site with robert, CDI. Swelling improved. - Labs CBC & Chem 7: 01/27/19 04:30 01/27/19 04:30 Labs: Abnormal Lab Results - Last 24 Hours (Table) 01/26/19 01/26/19 01/26/19 Range/Units 04:40 14:03 15:06 WBC (3.8-10.6) k/uL RBC (4.30-5.90) m/uL Hgb (13.0-17.5) gm/dL Hct (39.0-53.0) % Neutrophils # (1.3-7.7) k/uL ABG pH (7.35-7.45) ABG pO2 (83-108) mmHg ABG HCO3 (21-25) mmol/L ABG O2 Saturation (94-97) % Chloride (98-107) mmol/L Carbon Dioxide (22-30) mmol/L BUN (9-20) mg/dL Creatinine (0.66-1.25) mg/dL Glucose (74-99) mg/dL POC Glucose (mg/dL) 154 H 166 H (75-99) mg/dL Calcium (8.4-10.2) mg/dL Total Protein (6.3-8.2) g/dL Albumin (3.5-5.0) g/dL Hep Bs Antigen Reactive H (Non-Reactive) 01/26/19 01/26/19 01/26/19 Range/Units 16:15 18:30 20:06 WBC (3.8-10.6) k/uL RBC (4.30-5.90) m/uL Hgb (13.0-17.5) gm/dL Hct (39.0-53.0) % Neutrophils # (1.3-7.7) k/uL ABG pH (7.35-7.45) ABG pO2 (83-108) mmHg ABG HCO3 (21-25) mmol/L ABG O2 Saturation (94-97) % Chloride (98-107) mmol/L Carbon Dioxide (22-30) mmol/L BUN (9-20) mg/dL Creatinine (0.66-1.25) mg/dL Glucose (74-99) mg/dL POC Glucose (mg/dL) 147 H 153 H 145 H (75-99) mg/dL Calcium (8.4-10.2) mg/dL Total Protein (6.3-8.2) g/dL Albumin (3.5-5.0) g/dL Hep Bs Antigen (Non-Reactive) 01/26/19 01/27/19 01/27/19 Range/Units 22:07 00:27 02:07 WBC (3.8-10.6) k/uL RBC (4.30-5.90) m/uL Hgb (13.0-17.5) gm/dL Hct (39.0-53.0) % Neutrophils # (1.3-7.7) k/uL ABG pH (7.35-7.45) ABG pO2 (83-108) mmHg ABG HCO3 (21-25) mmol/L ABG O2 Saturation (94-97) % Chloride (98-107) mmol/L Carbon Dioxide (22-30) mmol/L BUN (9-20) mg/dL Creatinine (0.66-1.25) mg/dL Glucose (74-99) mg/dL POC Glucose (mg/dL) 170 H 140 H 146 H (75-99) mg/dL Calcium (8.4-10.2) mg/dL Total Protein (6.3-8.2) g/dL Albumin (3.5-5.0) g/dL Hep Bs Antigen (Non-Reactive) 01/27/19 01/27/19 01/27/19 Range/Units 03:55 04:28 04:30 WBC 11.8 H (3.8-10.6) k/uL RBC 3.01 L (4.30-5.90) m/uL Hgb 8.9 L (13.0-17.5) gm/dL Hct 27.3 L (39.0-53.0) % Neutrophils # 9.6 H (1.3-7.7) k/uL ABG pH 7.31 L (7.35-7.45) ABG pO2 112 H (83-108) mmHg ABG HCO3 20 L (21-25) mmol/L ABG O2 Saturation 98.2 H (94-97) % Chloride (98-107) mmol/L Carbon Dioxide (22-30) mmol/L BUN (9-20) mg/dL Creatinine (0.66-1.25) mg/dL Glucose (74-99) mg/dL POC Glucose (mg/dL) 153 H (75-99) mg/dL Calcium (8.4-10.2) mg/dL Total Protein (6.3-8.2) g/dL Albumin (3.5-5.0) g/dL Hep Bs Antigen (Non-Reactive) 01/27/19 01/27/19 01/27/19 Range/Units 04:30 06:04 07:55 WBC (3.8-10.6) k/uL RBC (4.30-5.90) m/uL Hgb (13.0-17.5) gm/dL Hct (39.0-53.0) % Neutrophils # (1.3-7.7) k/uL ABG pH (7.35-7.45) ABG pO2 (83-108) mmHg ABG HCO3 (21-25) mmol/L ABG O2 Saturation (94-97) % Chloride 112 H (98-107) mmol/L Carbon Dioxide 19 L (22-30) mmol/L BUN 77 H (9-20) mg/dL Creatinine 4.76 H (0.66-1.25) mg/dL Glucose 147 H (74-99) mg/dL POC Glucose (mg/dL) 144 H 179 H (75-99) mg/dL Calcium 7.6 L (8.4-10.2) mg/dL Total Protein 5.2 L (6.3-8.2) g/dL Albumin 2.2 L (3.5-5.0) g/dL Hep Bs Antigen (Non-Reactive) 1201/27/19 01/27/19 Range/Units 10:19 11:53 12:22 WBC (3.8-10.6) k/uL RBC (4.30-5.90) m/uL Hgb (13.0-17.5) gm/dL Hct (39.0-53.0) % Neutrophils # (1.3-7.7) k/uL ABG pH (7.35-7.45) ABG pO2 (83-108) mmHg ABG HCO3 (21-25) mmol/L ABG O2 Saturation (94-97) % Chloride (98-107) mmol/L Carbon Dioxide (22-30) mmol/L BUN (9-20) mg/dL Creatinine (0.66-1.25) mg/dL Glucose (74-99) mg/dL POC Glucose (mg/dL) 157 H 172 H 166 H (75-99) mg/dL Calcium (8.4-10.2) mg/dL Total Protein (6.3-8.2) g/dL Albumin (3.5-5.0) g/dL Hep Bs Antigen (Non-Reactive) Assessment and Plan Assessment: Status post right below the knee amputation for wet gangrene, inability to wean from ventilator Status post right foot fourth and fifth toe amputation Acute kidney failure, status post placement of temporary dialysis catheter wet gangrene right fifth toe uncontrolled type 2 diabetes previous amputation for infected gangrene toe on the left foot hyperlipidemia hypertension previous GA Plan: Patient currently remains intubated and sedated in the ICU. Continue supportive care. Dressing changes as ordered. The above dictated assessment and findings were discussed with Dr. Mariee. The impression and plan of care have been directed as dictated.
[2019-01-27 15:10] LABS: Glucose,Whole Blood 124 mg/dL (75-99)
[2019-01-27 16:07] LABS: Glucose,Whole Blood 139 mg/dL (75-99)
[2019-01-27 17:20] LABS: Glucose,Whole Blood 174 mg/dL (75-99)
--- NOTE | 2019-01-27 17:46 | PN ---
PROGRESS NOTE The patient is seen for followup for acute kidney injury. He was dialyzed yesterday. Patient continues to have good urine output. He is maintained on Lasix drip. Serum creatinine is 4.76, down from 5.2 yesterday. Urine output remains at about 100 mL an hour. The patient was dialyzed today. We had about 2.2 L of ultrafiltration this morning. PHYSICAL EXAMINATION: This morning, blood pressure was 151/70, heart rate of 70 per minute. Patient is afebrile. Examination of the heart S1, S2. Examination of the lungs, bilateral breath sounds are heard. ABDOMEN: Soft, nontender. Distended. Examination of lower extremities shows right BKA, 1+ edema left lower extremity. [employer] SAL[employer] REPRESENTATIVE exam cannot be performed. LABS: Show sodium 140, potassium 4.0, chloride 112, BUN 77, creatinine 4.76, hemoglobin 8.9 g/dL. ASSESSMENT: 1. Acute kidney injury, acute tubular necrosis, currently nonoliguric with good urine output. Currently maintained on Lasix drip which I will continue. The patient has had 2 successive treatments of hemodialysis. He had about 2.2 L of ultrafiltration today. I will continue with the Lasix drip as there are plans for possible extubation and we will reassess in the morning regarding need for repeat dialysis tomorrow. 2. Status post right fourth and fifth toe amputation followed by right below knee amputation for wet gangrene. 3. Acute hypoxic and hypercapnic respiratory failure currently on the vent with plans for possible weaning trials. 4. Volume overload, continue with the Lasix drip. PLAN: Repeat labs in a.m. Continue Lasix drip. We will reevaluate tomorrow regarding need for repeat dialysis in a.m. MMODL / IJN: [id number] /
[2019-01-27 18:24] LABS: Glucose,Whole Blood 170 mg/dL (75-99)
[2019-01-27 20:18] LABS: Glucose,Whole Blood 176 mg/dL (75-99)
--- NOTE | 2019-01-27 22:03 | P.PN ---
Subjective Progress Note Date: 01/27/19 60-year-old male who has multiple medical troubles that includes peripheral vascular disease, coronary artery disease and diabetes mellitus type 2. Is related the patient was doing relatively well this year which point in time he was to be compliant to his medication regimen. However he appears by the fall was having difficulties and stopped his insulin treatments. His blood glucoses increased greatly and his hemoglobin A1c went to nearly 10. The patient now presents to Hospital of evidence of gangrenous changes to his fourth and fifth toes of the right foot. 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 The patient is directly postoperative period he is modestly comfortable but still with some effects of anesthesia. He relates he was not having much pain at home and it was because the areas were worsening and blackening that he sought care. 01/20/2019 patient remains intubated sedated with mechanical ventilation, failed a weanig attempt due to tachypneia foot remains with drainage but is not bleeding. 01/21/2019 patient remains in intensive care unit intubated sedated and mechanically ventilated with no further progression for weaning. He is followed by nephrology he has some worsening renal failure there is not some contemplation for possible hemodialysis. 01/27/2019 patient had a good weaning trial today and is doing well with feeds, loose stool has improved and urine output is low. Has tolerated the hemodialysis and has had adequate fluid removal. Further weaning planned in am. Objective - Vital Signs Vital signs: Vital Signs Temp 99.1 F 01/27/19 20:00 Pulse 71 01/27/19 20:00 Resp 18 01/27/19 20:00 BP 97/57 01/27/19 16:51 Pulse Ox 97 01/27/19 20:00 Intake & Output 01/27/19 01/27/19 01/28/19 06:59 18:59 06:59 Intake Total 0513.557 7188.938 200.665 Output Total 970 5990 110 Balance 521.840 -4605.062 90.665 Weight 121.4 kg 121.4 kg Intake: IV 276 326.0 46 0.9 Normal Saline ( 36 36 6 pressure bag) at 3mL/hr Piperacillin-Tazobactam 3 50.0 .375 gm In Sodium Chloride 0.9% 100 ml @ 25 mls/hr IVPB Q12HR [place] Rx #:[id number] Sodium Chloride 0.9% 1, 240 240 40 000 ml @ 20 mls/hr IV . Q24H [place] Rx#:[id number] Intake, IV Titration 311.840 300.938 26.665 Amount Furosemide 100 mg In 88.833 178.5 Sodium Chloride 0.9% 90 ml @ 10 MG/HR 10 mls/hr IV .Q10H [place] Rx#: [id number] Insulin Regular 100 unit 44.331 32.362 7.727 In Sodium Chloride 0.9% 100 ml @ Per Protocol IV .Q0M [place] Rx#:[id number] Piperacillin-Tazobactam 3 12.5 .375 gm In Sodium Chloride 0.9% 100 ml @ 25 mls/hr IVPB Q12HR [place] Rx #:[id number] Propofol 1,000 mg In 178.676 77.576 18.938 Empty Bag 1 bag @ Titrate IV .Q0M [place] Rx#: [id number] Tube Feeding 784 588 98 Other 120 170 30 Output: Urine 970 990 110 Stool 500 Hemodialysis 4500 Other: Voiding Method Indwelling Catheter Indwelling Catheter Indwelling Catheter ABP, PAP, CO, CI - Last Documented Arterial Blood Pressure 135/47 - Exam The patient is intubated and mechanically ventilated seems comfortable HEENT: Anicteric conjunctiva are pink and moist nasal mucosa grossly intact wit hout significant lesions, there is no thrush noted around the ET tube Neck: The neck is supple without significant lymphadenopathy or thyromegaly. Lungs: The symmetrical bilateral air entry reveal some basilar crackles Heart: Irregular soft S4 no murmur Abdomen: Obese, Positive bowel sounds soft and nontender without palpable masses or organomegaly. There was no guarding or rebound. Extremities: The upper extremities without acute lesions. The left foot has no acute open ulcerations. Right foot is with the postoperative dressing from the amputation which is a ray amputation from the fourth and fifth toes. The remains necrosis at the base of the amputation site with serous mildly malodoro us drainage. The foot is cool but not frankly cold poor capillary refill. Neuro: The patient is sedated remains intubated and mechanically ventilated at sedation holiday did well. - Labs CBC & Chem 7: 01/27/19 04:30 01/27/19 04:30 Labs: Abnormal Lab Results - Last 24 Hours (Table) 01/26/19 01/26/19 01/27/19 Range/Units 04:40 22:07 00:27 WBC (3.8-10.6) k/uL RBC (4.30-5.90) m/uL Hgb (13.0-17.5) gm/dL Hct (39.0-53.0) % Neutrophils # (1.3-7.7) k/uL ABG pH (7.35-7.45) ABG pO2 (83-108) mmHg ABG HCO3 (21-25) mmol/L ABG O2 Saturation (94-97) % Chloride (98-107) mmol/L Carbon Dioxide (22-30) mmol/L BUN (9-20) mg/dL Creatinine (0.66-1.25) mg/dL Glucose (74-99) mg/dL POC Glucose (mg/dL) 170 H 140 H (75-99) mg/dL Calcium (8.4-10.2) mg/dL Total Protein (6.3-8.2) g/dL Albumin (3.5-5.0) g/dL Hep Bs Antigen Reactive H (Non-Reactive) 01/27/19 01/27/19 01/27/19 Range/Units 02:07 03:55 04:28 WBC (3.8-10.6) k/uL RBC (4.30-5.90) m/uL Hgb (13.0-17.5) gm/dL Hct (39.0-53.0) % Neutrophils # (1.3-7.7) k/uL ABG pH 7.31 L (7.35-7.45) ABG pO2 112 H (83-108) mmHg ABG HCO3 20 L (21-25) mmol/L ABG O2 Saturation 98.2 H (94-97) % Chloride (98-107) mmol/L Carbon Dioxide (22-30) mmol/L BUN (9-20) mg/dL Creatinine (0.66-1.25) mg/dL Glucose (74-99) mg/dL POC Glucose (mg/dL) 146 H 153 H (75-99) mg/dL Calcium (8.4-10.2) mg/dL Total Protein (6.3-8.2) g/dL Albumin (3.5-5.0) g/dL Hep Bs Antigen (Non-Reactive) 01/27/19 01/27/19 01/27/19 Range/Units 04:30 04:30 06:04 WBC 11.8 H (3.8-10.6) k/uL RBC 3.01 L (4.30-5.90) m/uL Hgb 8.9 L (13.0-17.5) gm/dL Hct 27.3 L (39.0-53.0) % Neutrophils # 9.6 H (1.3-7.7) k/uL ABG pH (7.35-7.45) ABG pO2 (83-108) mmHg ABG HCO3 (21-25) mmol/L ABG O2 Saturation (94-97) % Chloride 112 H (98-107) mmol/L Carbon Dioxide 19 L (22-30) mmol/L BUN 77 H (9-20) mg/dL Creatinine 4.76 H (0.66-1.25) mg/dL Glucose 147 H (74-99) mg/dL POC Glucose (mg/dL) 144 H (75-99) mg/dL Calcium 7.6 L (8.4-10.2) mg/dL Total Protein 5.2 L (6.3-8.2) g/dL Albumin 2.2 L (3.5-5.0) g/dL Hep Bs Antigen (Non-Reactive) 01/27/19 01/27/19 01/27/19 Range/Units 07:55 10:19 11:53 WBC (3.8-10.6) k/uL RBC (4.30-5.90) m/uL Hgb (13.0-17.5) gm/dL Hct (39.0-53.0) % Neutrophils # (1.3-7.7) k/uL ABG pH (7.35-7.45) ABG pO2 (83-108) mmHg ABG HCO3 (21-25) mmol/L ABG O2 Saturation (94-97) % Chloride (98-107) mmol/L Carbon Dioxide (22-30) mmol/L BUN (9-20) mg/dL Creatinine (0.66-1.25) mg/dL Glucose (74-99) mg/dL POC Glucose (mg/dL) 179 H 157 H 172 H (75-99) mg/dL Calcium (8.4-10.2) mg/dL Total Protein (6.3-8.2) g/dL Albumin (3.5-5.0) g/dL Hep Bs Antigen (Non-Reactive) 01/27/19 01/27/19 01/27/19 Range/Units 12: 15:08 16:06 WBC (3.8-10.6) k/uL RBC (4.30-5.90) m/uL Hgb (13.0-17.5) gm/dL Hct (39.0-53.0) % Neutrophils # (1.3-7.7) k/uL ABG pH (7.35-7.45) ABG pO2 (83-108) mmHg ABG HCO3 (21-25) mmol/L ABG O2 Saturation (94-97) % Chloride (98-107) mmol/L Carbon Dioxide (22-30) mmol/L BUN (9-20) mg/dL Creatinine (0.66-1.25) mg/dL Glucose (74-99) mg/dL POC Glucose (mg/dL) 166 H 124 H 139 H (75-99) mg/dL Calcium (8.4-10.2) mg/dL Total Protein (6.3-8.2) g/dL Albumin (3.5-5.0) g/dL Hep Bs Antigen (Non-Reactive) 01/27/19 01/27/19 01/27/19 Range/Units 17:19 18:23 20:06 WBC (3.8-10.6) k/uL RBC (4.30-5.90) m/uL Hgb (13.0-17.5) gm/dL Hct (39.0-53.0) % Neutrophils # (1.3-7.7) k/uL ABG pH (7.35-7.45) ABG pO2 (83-108) mmHg ABG HCO3 (21-25) mmol/L ABG O2 Saturation (94-97) % Chloride (98-107) mmol/L Carbon Dioxide (22-30) mmol/L BUN (9-20) mg/dL Creatinine (0.66-1.25) mg/dL Glucose (74-99) mg/dL POC Glucose (mg/dL) 174 H 170 H 176 H (75-99) mg/dL Calcium (8.4-10.2) mg/dL Total Protein (6.3-8.2) g/dL Albumin (3.5-5.0) g/dL Hep Bs Antigen (Non-Reactive) Laboratory Results WBC 11.8 k/uL (3.8-10.6) H 01/27/19 04:30 RBC 3.01 m/uL (4.30-5.90) L 01/27/19 04:30 Hgb 8.9 gm/dL (13.0-17.5) L 01/27/19 04:30 Hct 27.3 % (39.0-53.0) L 01/27/19 04:30 MCV 90.7 fL (80.0-100.0) 01/27/19 04:30 MCH 29.6 pg (25.0-35.0) 01/27/19 04:30 MCHC 32.7 g/dL (31.0-37.0) 01/27/19 04:30 RDW 12.7 % (11.5-15.5) 01/27/19 04:30 Plt Count 221 k/uL (150-450) 01/27/19 04:30 Neutrophils % 81 % 01/27/19 04:30 Lymphocytes % 10 % 01/27/19 04:30 Monocytes % 4 % 01/27/19 04:30 Eosinophils % 3 % 01/27/19 04:30 Basophils % 1 % 01/27/19 04:30 Neutrophils # 9.6 k/uL (1.3-7.7) H 01/27/19 04:30 Lymphocytes # 1.1 k/uL (1.0-4.8) 01/27/19 04:30 Monocytes # 0.5 k/uL (0-1.0) 01/27/19 04:30 Eosinophils # 0.4 k/uL (0-0.7) 01/27/19 04:30 Basophils # 0.1 k/uL (0-0.2) 01/27/19 04:30 Hypochromasia Slight 01/26/19 04:40 Sample Site [place] 01/27/19 03:55 ABG pH 7.31 (7.35-7.45) L 01/27/19 03:55 ABG pCO2 39 mmHg (35-45) 01/27/19 03:55 ABG pO2 112 mmHg (83-108) H 01/27/19 03:55 ABG HCO3 20 mmol/L (21-25) L 01/27/19 03:55 ABG Total CO2 21 mmol/L (19-24) 01/27/19 03:55 ABG O2 Saturation 98.2 % (94-97) H 01/27/19 03:55 ABG Base Excess -6.5 mmol/L 01/27/19 03:55 Jd Test Yes 01/27/19 03:55 ABG Lactic Acid 0.7 mmol/L (0.5-1.6) 01/19/19 04:15 FiO2 50 % 01/27/19 03:55 Sodium 140 mmol/L (137-145) 01/27/19 04:30 Potassium 4.0 mmol/L (3.5-5.1) 01/27/19 04:30 Chloride 112 mmol/L (98-107) H 01/27/19 04:30 Carbon Dioxide 19 mmol/L (22-30) L 01/27/19 04:30 Anion Gap 9 mmol/L 01/27/19 04:30 BUN 77 mg/dL (9-20) H 01/27/19 04:30 Creatinine 4.76 mg/dL (0.66-1.25) H 01/27/19 04:30 Est GFR (CKD-EPI)AfAm 14 (>60 ml/min/1.73 sqM) 01/27/19 04:30 Est GFR (CKD-EPI)NonAf 12 (>60 ml/min/1.73 sqM) 01/27/19 04:30 Glucose 147 mg/dL (74-99) H 01/27/19 04:30 POC Glucose (mg/dL) 176 mg/dL (75-99) H 01/27/19 20:06 POC Glu Manager Of [employer] ID Ryan Paiz 01/27/19 20:06 Lactic Ac Sepsis Rflx Y 01/16/19 01:23 Plasma Lactic Acid Jose Carlos 1.4 mmol/L (0.7-2.0) 01/16/19 05:28 Calcium 7.6 mg/dL (8.4-10.2) L 01/27/19 04:30 Phosphorus 7.0 mg/dL (2.5-4.5) H 01/23/19 04:10 Magnesium 2.0 mg/dL (1.6-2.3) 01/23/19 04:10 Total Bilirubin 0.3 mg/dL (0.2-1.3) 01/27/19 04:30 AST 21 U/L (17-59) 01/27/19 04:30 ALT 24 U/L (21-72) 01/27/19 04:30 Alkaline Phosphatase 47 U/L (38-126) 01/27/19 04:30 Total Protein 5.2 g/dL (6.3-8.2) L 01/27/19 04:30 Albumin 2.2 g/dL (3.5-5.0) L 01/27/19 04:30 Urine Color Yellow 01/18/19 17:04 Urine Appearance Cloudy (Clear) 01/18/19 17:04 Urine pH 5.0 (5.0-8.0) 01/18/19 17:04 Ur Specific [place] 1.018 (1.001-1.035) 01/18/19 17:04 Urine Protein 1+ (Negative) H 01/18/19 17:04 Urine Glucose (UA) 1+ (Negative) H 01/18/19 17:04 Urine Ketones Negative (Negative) 01/18/19 17:04 Urine Blood Negative (Negative) 01/18/19 17:04 Urine Nitrite Negative (Negative) 01/18/19 17:04 Urine Bilirubin Negative (Negative) 01/18/19 17:04 Urine Urobilinogen <2.0 mg/dL (<2.0) 01/18/19 17:04 Ur Leukocyte Esterase Negative (Negative) 01/18/19 17:04 Urine WBC 2 /hpf (0-5) 01/18/19 17:04 Amorphous Sediment Few /hpf (None) H 01/18/19 17:04 Random Vancomycin 20.6 ug/mL 01/22/19 04:20 C. difficile (EIA) Intrp Negative (Negative) 01/23/19 Unknown Hep Bs Antigen Reactive (Non-Reactive) H 01/26/19 04:40 Hep Bs Antibody Non-Reactive (Non-Reactive) 01/26/19 04:40 Hep Bs Antibody, Quant 3.5 mIU/mL 01/26/19 04:40 Microbiology 01/19/19 14:20 Blood Blood Culture - Final No Growth after 144 hours 01/15/19 20:20 Blood Blood Culture - Final No Growth after 144 hours 01/17/19 09:20 Toe - Right Fifth Anaerobic Culture - Final Anaerobic Gm Negative Bacilli Anaerobic Gm Negative Bacilli#2 Anaerobic Gm Negative Bacilli#3 Anaerobic Gm Negative Bacilli#4 01/17/19 09:20 Toe - Right Fifth Gram Stain - Final 01/17/19 09:20 Toe - Right Fifth Wound Culture - Final Morganella morganii Enterococcus avium Beta Hemolytic Streptococcus F 01/18/19 15:47 Sputum Gram Stain - Final 01/18/19 15:47 Sputum Sputum Culture - Final Ирина albicans CXRAY with fluid Assessment and Plan (1) Gangrene Narrative/Plan: 68-year-old male with long-standing history of multiple medical troubles that includes diabetes mellitus type 2 presents to hospital with evidence of what appears to be gangrenous changes to the right foot fifth toe. Because interchanged and was apparently and with some drainage and odor he sought care. He has not been seen by the vascular surgeon is undergone the rehabilitation to toes 4 and 5. However appears to be other ulceration and he may require further more extensive surgical intervention the next 48 hours. Cultures are pending. Extensive antibiotic therapy with Zosyn and vancomycin is being utilized at this point in time for the diabetic foot ulceration until there is further data. Once surgical interventions are completed we'll then be able to determine a course of antibiotic therapy at discharge. Unclear if he can care for himself in the home setting. Depending on the findings he may be a good candidate for negative pressure therapy. He would be ideal candidate follow-up with the wound healing Center to determine if outpatient hyperbaric oxygen therapy could be utilized for limb salvage. 01/20/2019 the patient remains in intensive care unit intubated sedated and mechanically ventilated and did not progress well with the sedation holiday today and weaning trial. He is currently on vancomycin and Zosyn for the polymicrobial infection that was found exam the surgical debridement. I have the pleasure of discussing the case with the vascular surgeon and patient has no improvement in the next day and continues to fail ventilation and has no further improvement within be a candidate for an amputation to try to allow improvement of his underlying status which greater than allow progression to extubation future. Antibiotic therapy continues with Zosyn with the polymicrobial infection found at the time of the debridement. 01/21/2019 the patient is having some worsening of his status and that his renal failure worsening and there is no contemplation of possible hemodialysis. The patient has progressive ongoing infection to the right foot and is on antibiotic therapy for the polymicrobial infection. Over the pleasure of discussing the case with the vascular surgeon and we'll reevaluate for potential inspissation the near future. The goal of amputation is to remove the source of infection which would possibly allow some improvement of his status. Antibiotic therapy continues with Zosyn at this time. Prognosis remains poor. 01/27/2018 the patient is undergone amputation and this is also improvement of his status. The patient did develop aggressive renal failure and is now rec eiving hemodialysis. There is been improvement and with ultrafiltration they have been able to remove significant amounts of fluid. This is all out his respiratory status to improve. Weaning trial was adequate today. Appears that we try to get tomorrow and then will determine the possibility of extubation. If extubated tomorrow with implant and discontinuing his antibiotic therapy which is currently with Zosyn with concerns to an aspiration event. Current Visit: Yes Status: Acute Code(s): I96 - GANGRENE, NOT ELSEWHERE CLASSIFIED SNOMED Code(s): 164607146 (2) Hyperglycemia Current Visit: Yes Status: Acute Code(s): R73.9 - HYPERGLYCEMIA, UNSPECIFIED SNOMED Code(s): 24846310 (3) Lower extremity cellulitis Current Visit: No Status: Acute Code(s): L03.119 - CELLULITIS OF UNSPECIFIED PART OF LIMB SNOMED Code(s): 236378391
[2019-01-27 22:06] LABS: Glucose,Whole Blood 175 mg/dL (75-99)
[2019-01-27] MEDS: LATANOPROST 0.005% OPHTH DROPS 2.5 ML BTL LEFT EYE SCH (22:42)
[2019-01-27 23:56] LABS: Glucose,Whole Blood 178 mg/dL (75-99)
[2019-01-28] MEDS: SODIUM CHLORIDE 0.9% 1,000 ML IV SCH ×3 (01:56→22:36)
[2019-01-28 02:11] LABS: Glucose,Whole Blood 175 mg/dL (75-99)
[2019-01-28] MEDS: MORPHINE SULFATE 2 MG/ML SYRINGE IVP PRN ×5 (04:05→22:01)
[2019-01-28] MEDS: FUROSEMIDE 100 MG in SODIUM CHLORIDE 0.9% 90 ML IV SCH ×3 (04:07→23:42)
[2019-01-28] MEDS: INSULIN REGULAR 100 UNIT in SODIUM CHLORIDE 0.9% 100 ML IV SCH (04:11)
[2019-01-28 04:19] LABS: Basophils # (A) 0.1 k/uL (0-0.2); Basophils % (A) 1 %; Eosinophils # (A) 0.4 k/uL (0-0.7); Eosinophils % (A) 3 %; HCT 27.2 % (39.0-53.0); Lymphocytes # (A) 1.5 k/uL (1.0-4.8); Lymphocytes % (A) 13 %; MCH 30.1 pg (25.0-35.0); MCV 91.3 fL (80.0-100.0); Mean Platelet Volume 10.4; Monocytes # (A) 0.5 k/uL (0-1.0); Monocytes % (A) 4 %; Neutrophils # (A) 9.3 k/uL (1.3-7.7); Neutrophils % (A) 78 %; Platelet Count 212 k/uL (150-450); RBC 2.98 m/uL (4.30-5.90); RDW 12.7 % (11.5-15.5); WBC 11.9 k/uL (3.8-10.6)
[2019-01-28 04:22] LABS: Glucose,Whole Blood 176 mg/dL (75-99)
[2019-01-28 04:32] LABS: Albumin 2.4 g/dL (3.5-5.0); Calcium 7.5 mg/dL (8.4-10.2); Total Bilirubin 0.3 mg/dL (0.2-1.3); Total Protein 5.5 g/dL (6.3-8.2)
[2019-01-28] MEDS: NOREPINEPHRINE 4 MG in SODIUM CHLORIDE 0.9% 250 ML IV SCH ×2 (05:20→16:39)
[2019-01-28] MEDS: PROPOFOL 1,000 MG in EMPTY BAG 1 BAG IV SCH ×3 (05:56→22:56)
[2019-01-28 06:06] LABS: Glucose,Whole Blood 178 mg/dL (75-99)
--- NOTE | 2019-01-28 08:07 | XR ---
EXAMINATION TYPE: XR chest 1V portable DATE OF EXAM: 01/28/2019 COMPARISON: Prior chest x-ray 01/27/2019 HISTORY: Intubated, abnormal chest x-ray TECHNIQUE: Single frontal view of the chest is obtained. FINDINGS: Endotracheal tube is overlying the tracheal air column in the distal tip is at approximate ly the T1-2 level. NG tube is present with the distal tip not on the exam but side port is overlying the stomach region. Right jugular central venous catheter is coursing with the tip in the right atriu m. There are overlying cardiac leads. Bibasilar increased density persists. No evident pneumothorax. Aorta is dense. Heart is stable, heart size may be accentuated by rotation. There are overlying artif acts. IMPRESSION: Findings are similar to prior exam. Probable bibasilar atelectasis, correlate for edema or pneumonia, there may be associated effusion
[2019-01-28 08:08] LABS: Glucose,Whole Blood 147 mg/dL (75-99)
[2019-01-28] MEDS: HEPARIN SODIUM,PORCINE 5,000 UNIT/ML 1 ML VIAL SQ SCH ×3 (08:12→23:48)
[2019-01-28] MEDS: PANTOPRAZOLE 40 MG/10 ML VIAL IV SCH (09:15)
[2019-01-28] MEDS: GABAPENTIN 100 MG CAP PO SCH ×3 (09:15→22:34)
[2019-01-28] MEDS: FLUoxetine HCL 20 MG CAP PO SCH (09:15)
[2019-01-28] MEDS: CHLORHEXIDINE GLUCONATE 15 ML CUP MUCOUS MEM SCH ×2 (09:15→22:34)
[2019-01-28] MEDS: TIMOLOL 0.5% OPHTH DROPS 5 ML BTL LEFT EYE SCH ×2 (09:16→22:35)
[2019-01-28] MEDS: DORZOLAMIDE HCL 2% DROPS 10 ML BTL LEFT EYE SCH ×2 (09:16→22:34)
[2019-01-28] MEDS: LATANOPROST 0.005% OPHTH DROPS 2.5 ML BTL LEFT EYE SCH ×2 (09:18→22:35)
[2019-01-28] MEDS: PIPERACILLIN-TAZOBACTAM 3.375 GM in SODIUM CHLORIDE 0.9% 100 ML IVPB SCH ×2 (09:40→22:34)
[2019-01-28] MEDS: BRIMONIDINE TARTRATE 0.2% DROPS 5 ML BTL LEFT EYE SCH ×3 (09:41→22:35)
--- NOTE | 2019-01-28 10:02 | P.PN ---
Subjective Progress Note Date: 01/28/19 Patient seen and examined. No issues overnight per nursing. CPAP trial yesterday, patient did well. Objective - Vital Signs Vital signs: Vital Signs Temp 99.1 F 01/28/19 08:00 Pulse 61 01/28/19 08:00 Resp 18 01/28/19 08:00 BP 131/61 01/28/19 04:00 Pulse Ox 97 01/28/19 08:00 Intake & Output 01/27/19 01/28/19 01/28/19 18:59 06:59 18:59 Intake Total 0262.950 3102.158 95.195 Output Total 5990 610 45 Balance -4605.062 678.158 50.195 Weight 121.4 kg 119.9 kg Intake: IV 326.0 376 46 0.9 Normal Saline ( 36 36 6 pressure bag) at 3mL/hr Piperacillin-Tazobactam 3 50.0 120 .375 gm In Sodium Chloride 0.9% 100 ml @ 25 mls/hr IVPB Q12HR [place] Rx #:[id number] Sodium Chloride 0.9% 1, 240 220 40 000 ml @ 20 mls/hr IV . Q24H [place] Rx#:[id number] Intake, IV Titration 300.938 234.158 49.195 Amount Furosemide 100 mg In 178.5 88 Sodium Chloride 0.9% 90 ml @ 10 MG/HR 10 mls/hr IV .Q10H [place] Rx#: [id number] Insulin Regular 100 unit 32.362 46.158 10.226 In Sodium Chloride 0.9% 100 ml @ Per Protocol IV .Q0M [place] Rx#:[id number] Piperacillin-Tazobactam 3 12.5 .375 gm In Sodium Chloride 0.9% 100 ml @ 25 mls/hr IVPB Q12HR [place] Rx #:[id number] Propofol 1,000 mg In 77.576 100.000 38.969 Empty Bag 1 bag @ Titrate IV .Q0M [place] Rx#: [id number] Tube Feeding 588 588 Other 170 90 Output: Urine 990 610 45 Stool 500 Hemodialysis 4500 Other: Voiding Method Indwelling Catheter Indwelling Catheter Indwelling Catheter ABP, PAP, CO, CI - Last Documented Arterial Blood Pressure 112/46 - Exam No acute distress, intubated, sedated at this time Heart regular Lungs coarse but clear otherwise Abdomen soft, rotund Left femoral hemodialysis catheter in place Extremities right lower extremity amputation site with decreased edema. Incision clean, dry and intact - Labs CBC & Chem 7: 01/28/19 04:10 01/28/19 04:10 Labs: Abnormal Lab Results - Last 24 Hours (Table) 01/26/19 01/27/19 01/27/19 Range/Units 04:40 10:19 11:53 WBC (3.8-10.6) k/uL RBC (4.30-5.90) m/uL Hgb (13.0-17.5) gm/dL Hct (39.0-53.0) % Neutrophils # (1.3-7.7) k/uL Chloride (98-107) mmol/L Carbon Dioxide (22-30) mmol/L BUN (9-20) mg/dL Creatinine (0.66-1.25) mg/dL Glucose (74-99) mg/dL POC Glucose (mg/dL) 157 H 172 H (75-99) mg/dL Calcium (8.4-10.2) mg/dL Total Protein (6.3-8.2) g/dL Albumin (3.5-5.0) g/dL Hep Bs Antigen Reactive H (Non-Reactive) 01/27/19 01/27/19 01/27/19 Range/Units 12:22 15:08 16:06 WBC (3.8-10.6) k/uL RBC (4.30-5.90) m/uL Hgb (13.0-17.5) gm/dL Hct (39.0-53.0) % Neutrophils # (1.3-7.7) k/uL Chloride (98-107) mmol/L Carbon Dioxide (22-30) mmol/L BUN (9-20) mg/dL Creatinine (0.66-1.25) mg/dL Glucose (74-99) mg/dL POC Glucose (mg/dL) 166 H 124 H 139 H (75-99) mg/dL Calcium (8.4-10.2) mg/dL Total Protein (6.3-8.2) g/dL Albumin (3.5-5.0) g/dL Hep Bs Antigen (Non-Reactive) 01/27/19 01/27/19 01/27/19 Range/Units 17:19 18:23 20:06 WBC (3.8-10.6) k/uL RBC (4.30-5.90) m/uL Hgb (13.0-17.5) gm/dL Hct (39.0-53.0) % Neutrophils # (1.3-7.7) k/uL Chloride (98-107) mmol/L Carbon Dioxide (22-30) mmol/L BUN (9-20) mg/dL Creatinine (0.66-1.25) mg/dL Glucose (74-99) mg/dL POC Glucose (mg/dL) 174 H 170 H 176 H (75-99) mg/dL Calcium (8.4-10.2) mg/dL Total Protein (6.3-8.2) g/dL Albumin (3.5-5.0) g/dL Hep Bs Antigen (Non-Reactive) 01/27/19 01/27/19 01/28/19 Range/Units 22:04 23:54 02:00 WBC (3.8-10.6) k/uL RBC (4.30-5.90) m/uL Hgb (13.0-17.5) gm/dL Hct (39.0-53.0) % Neutrophils # (1.3-7.7) k/uL Chloride (98-107) mmol/L Carbon Dioxide (22-30) mmol/L BUN (9-20) mg/dL Creatinine (0.66-1.25) mg/dL Glucose (74-99) mg/dL POC Glucose (mg/dL) 175 H 178 H 175 H (75-99) mg/dL Calcium (8.4-10.2) mg/dL Total Protein (6.3-8.2) g/dL Albumin (3.5-5.0) g/dL Hep Bs Antigen (Non-Reactive) 01/28/19 01/28/19 01/28/19 Range/Units 04:10 04:10 04:10 WBC 11.9 H (3.8-10.6) k/uL RBC 2.98 L (4.30-5.90) m/uL Hgb 9.0 L (13.0-17.5) gm/dL Hct 27.2 L (39.0-53.0) % Neutrophils # 9.3 H (1.3-7.7) k/uL Chloride 110 H (98-107) mmol/L Carbon Dioxide 20 L (22-30) mmol/L BUN 77 H (9-20) mg/dL Creatinine 4.44 H (0.66-1.25) mg/dL Glucose 172 H (74-99) mg/dL POC Glucose (mg/dL) 176 H (75-99) mg/dL Calcium 7.5 L (8.4-10.2) mg/dL Total Protein 5.5 L (6.3-8.2) g/dL Albumin 2.4 L (3.5-5.0) g/dL Hep Bs Antigen (Non-Reactive) 01/28/19 01/28/19 Range/Units 05:55 08:06 WBC (3.8-10.6) k/uL RBC (4.30-5.90) m/uL Hgb (13.0-17.5) gm/dL Hct (39.0-53.0) % Neutrophils # (1.3-7.7) k/uL Chloride (98-107) mmol/L Carbon Dioxide (22-30) mmol/L BUN (9-20) mg/dL Creatinine (0.66-1.25) mg/dL Glucose (74-99) mg/dL POC Glucose (mg/dL) 178 H 147 H (75-99) mg/dL Calcium (8.4-10.2) mg/dL Total Protein (6.3-8.2) g/dL Albumin (3.5-5.0) g/dL Hep Bs Antigen (Non-Reactive) Assessment and Plan Assessment: Status post right below knee amputation Acute kidney failure on HD uncontrolled type 2 diabetes previous amputation for infected gangrene toe on the left foot hyperlipidemia hypertension previous MT Plan: At this point the patient seems to be doing okay overall. He is undergoing hemodialysis. He is to be getting a rigid dressing and stump noteman for his right lower extremity. Continue supportive care per ICU.
[2019-01-28 10:03] LABS: Glucose,Whole Blood 171 mg/dL (75-99)
--- NOTE | 2019-01-28 10:54 | CDI ---
Documentation Clarification Form Date: 01/28/2019 10:05:44 AM From: Renata Real RN, CCDS Admit Date: 01/15/2019 9:21:00 PM Patient Name: Refugio Saenz Visit Number: [id number] Discharge Date: ATTENTION: The Clinical Documentation Specialists (CDI) and [facility] Coding Staff appreciate your assistance in clarifying documentation. Please respond to the clarification below the line at the bottom and electronically sign. The CDI & [facility] Coding staff will review the response and follow-up if needed. Please note: Queries are made part of the Legal Health Record. If you have any questions, please contact the author of this message via ITS. Dr. Rah Dominguez CHF is documented in the ongoing progress notes starting on 01/20/[address] Dominguez and further clarification is needed. H&P on 01/16/19 : Patient has known history of hypertension, hyperlipidemia , he denies history of coronary artery disease or congestive heart failure, he had an echocardiogram done in 2014 at that time he had normal left ventricular unction was normal ejection fraction. History/Risk Factors: Diabetes Mellitus, Hypertension, Clinical Indicators: 68-year-old male presented with altered mental status, gangrene involving the right fifth toe and cellulitis, sepsis. On 01/20/29 progress notes (Dr. Dominguez): Patient is sedated with proprofol drip on mechanical ventilation. He was volume overload due to hypotension and was given fluid for resuscitation. Chest x-ray overall suggestive of more of his CHF and pneumonia VS/Pulse OX: 01/20/19@ 16:00: 125/59 71 18 Mechanical ventilator Echocardiogram 01/20/19: This was a technically study with suboptimal views. Overall left ventricular systolic function is low-normal with an EF between 50- 55 % Chest x ray: 01/20/19: Bilateral diffuse pleural-parenchymal disease correlate for CHF underlying pneumonia not excluded. 01/21/19 Cardiology (Dr. Cardoza: From the cardiac standpoint, there is no evidence of acute Coronary artery disease, ischemic event and no evidence of arrhythmia. Treatment: Lasix drip Monitor CBC, Lytes, BUN, CR Hemodialysis (per Nephrology) In your professional opinion, can you please clarify the acuity and type of CHF if known? Acute Systolic Heart Failure: Acute Diastolic Heart Failure: Unable to Determine Other, please specify (Last Revision: May 2017) MTDD
--- NOTE | 2019-01-28 10:54 | P.PN ---
Subjective Progress Note Date: 01/28/19 Refugio Saenz, is a 68-year-old male who presented to [facility] emergency room with pain in the right foot, he was evaluated in emergency room and had blackish discoloration of the right fifth toe with surrounding erythema and tenderness, patient was started on IV antibiotics Zosyn, vancomycin, and clindamycin, he was admitted to medical floor vascular surgery consultation was requested for possible amputation due to evidence of gangrene. Infectious disease consultation was requested. Patient has a known history of insulin-dependent diabetes mellitus, his glucose level was well controlled up until September of this year his A1c in June was 7.1 and in September was 7.3 however apparently patient stopped taking his insulin and his medications and his A1c was up to 9.8 in November, he has a known history of right foot ulcer he was admitted to the hospital with right foot cellulitis and ulcer in 2014 and he was followed at the wound care clinic in 2015 however he was doing well up until recently. Patient also has a known history of hypertension, hyperlipidemia, he denies any history of coronary artery disease or congestive heart failure, he had an echocardiogram done in 2014 at that time he had normal left ventricular function was normal ejection fraction, no significant valvular disease and no pulmonary hypertension. 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 On 01/17/2019 patient's alert and oriented 3. Patient had fourth and fifth toe amputation with Dr. Bustillos this morning. Patient having some low blood pressure will give 500 mL bolus. Patient denies chest pain or shortness of breath. Patient denies nausea vomiting or diarrhea. Patient is having some increased pain to foot area pain medications ordered 01/18/2019, patient seen eval examined while covering for Dr. Granger, waking up this morning slightly slow to respond but not confused, breathing comfortably denies any chest pain labs reviewed today patient has been evaluated by Dr. Bassett, white cell count is coming down to 19,000, lactic acid level is normalized, patient has been on broad-spectrum antibiotics with vascular surgery on board 01/19/2019, patient seen and evaluated examined in the ICU intubated on full ventilator support, patient had gradual loss of consciousness has been more lethargic arterial blood gases were checked shows hypercapnic and hypoxic respiratory failure was intubated in the ICU, patient has been placed on prop ofol he was volume depleted depleted aggressive fluid resuscitation were performed, is still requiring levophed intermittently, patient was also noted to be hypoglycemic 7030 insulin and other oral hypoglycemic agents were discontinued, ultrasound of the abdomen has been performed which is reviewed no obvious hydronephrosis seen, patient has decreased urine output along with rising BUN/creatinine appeared to be acute tubular necrosis, patient also requiring intermittent bolus of D10 for hypoglycemia, wounds has been evaluated by vascular surgery noted recommendation, patient has very poor venous access, will put a central line in, critical care time 45 minutes during procedure, due to altered mental status CT of the head was performed which was negative On 01/20/2019 patient remains in the intensive care unit on mechanical ventilation. Levophed has been on hold blood pressures has sustained. Creatinine has increased to 4.17 and bun 56. Nephrology services are following. Per nursing staff patient does follow commands during sedation holiday ABGs have improved. Discussed case with vascular surgeon nurse practitioner possible BKA discussion. White blood cell decreasing to 16.0. Critical care services are following. Patient remains on Zosyn for IV antibiotics. Infectious disease following 01/21/2019 patient remains on mechanical ventilation on in the intensive care unit. Patient remains sedated, on propofol. However per nursing staff patient does follow commands during sedation holiday. Patient is on 50% FiO2, 5 PEEP, tidal volume 500. Levophed off since 01/20/20. Blood pressure remains in the 130's-150's systolic. Creatinine 4.35 from 4.17 and BUN 57 from 56, Calcium 7.0, phosphorus 5.9 Nephrology is following. Orogastric tube replaced this morning. Per nursing staff OG tube was coiled in patient's mouth with tube feeds running. Chest x-ray repeated, no significant change from previous. ABG improving, still metabolic acidosis. WBC of 14.1 down from 16. Afebrile. Infectious disease is following patient is maintained on Zosyn. Will send C. diff sample due to new onset diarrhea for 1 day. Hyperglycemia noted (glucose 200's). Will discuss tube feed formula with dietary. If no changes can be made will adjust sliding scale. On 01/22/2019 patient remains sedated on mechanical ventilation in the intensive care unit. Per nursing staff patient is to have a BKA today with Dr. Bustillos. Patient remains off pressors, blood pressure has been stable. Chest x-ray repeated this morning, per pulmonary. No significant change in ABGs. Creatinine continues to increase, 4.84 today BUN 60, patient is still making adequate urine output nephrology is following. Tube feeds on hold, for pending OR. WBC 14.2, temperature overnight 100F. Please is following patient is maintained on Zosyn. C. diff sample was negative. 01/23/2019 patient remains sedated and on mechanical ventilation in the ICU. He underwent right BKA yesterday, 01/22/[address] Bustillos. Estimated blood loss 150 mL. He had a temp of 100 last night. Urine output is about 50 mL per hour. Creatinine has gone down from 4.84-4.82. Nephrology is following closely. No plans for hemodialysis yet. Patient's blood sugars are starting to become more elevated. They're in the 180s to 200s. Tube feedings are being adjusted. White count 13.7 hemoglobin 10.3 On 01/24/2019 patient remains sedated on mechanical ventilation in the intensive care unit. Decreased urine output throughout night. Creatinine 5.15 and bun 68. Patient remains on insulin drip. WBC 14.1. Patient having low-grade temps. Patient remains closely followed by critical care consulting providers On 01/25/2019 patient was seen and examined in the intensive care unit, he is currently alert and maintained on BiPAP trial, he is making more urine output, and no hemodialysis is scheduled at this time, creatinine improved, down from 5.15-4.44 white blood count down to 11.3 patient is followed by nephrology, infectious disease, pulmonary and critical care and vascular surgery On 01/26/2019 patient was seen and examined in the ICU, he is intubated sedated maintained on mechanical ventilation, creatinine went up today and he was started on hemodialysis, Zosyn has today, at this time will resume Zosyn, we have asked infectious disease to see patient and reassess antibiotics, otherwise patient is stable there is no fever or chills, he continues to have a rectal tube and having large amount of diarrhea, C. diff was checked and was negative will repeat test today. On 01/27/2019 patient remains on mechanical ventilation in the intensive care unit. Creatinine trending down today 4.76 and bun 77. Patient remains on Lasix drip per nephrology services. White count 11.8. She remains on IV Zosyn. Sedation holiday performed per nursing staff and critical care recommendation. On 01/28/2019 patient remains in the intensive care unit on mechanical ventilation. Sedation currently turned off. Patient is awake and following commands possible extubation today per critical care. Patient also received hemodialysis this will be the patient's third round of hemodialysis. Creatinine is trending down 4.44. Patient remains on Lasix drip. Objective - Vital Signs Vital signs: Vital Signs Temp 99.1 F 01/28/19 08:00 Pulse 72 01/28/19 10:00 Resp 30 H 01/28/19 10:00 BP 131/61 01/28/19 04:00 Pulse Ox 96 01/28/19 10:00 Intake & Output 01/27/19 01/28/19 01/28/19 18:59 06:59 18:59 Intake Total 5786.032 6459.158 299.195 Output Total 5990 610 95 Balance -4605.062 678.158 204.195 Weight 121.4 kg 119.9 kg Intake: IV 326.0 376 92 0.9 Normal Saline ( 36 36 12 pressure bag) at 3mL/hr Piperacillin-Tazobactam 3 50.0 120 .375 gm In Sodium Chloride 0.9% 100 ml @ 25 mls/hr IVPB Q12HR [place] Rx #:[id number] Sodium Chloride 0.9% 1, 240 220 80 000 ml @ 20 mls/hr IV . Q24H [place] Rx#:[id number] Intake, IV Titration 300.938 234.158 49.195 Amount Furosemide 100 mg In 178.5 88 Sodium Chloride 0.9% 90 ml @ 10 MG/HR 10 mls/hr IV .Q10H [place] Rx#: [id number] Insulin Regular 100 unit 32.362 46.158 10.226 In Sodium Chloride 0.9% 100 ml @ Per Protocol IV .Q0M [place] Rx#:[id number] Piperacillin-Tazobactam 3 12.5 .375 gm In Sodium Chloride 0.9% 100 ml @ 25 mls/hr IVPB Q12HR [place] Rx #:[id number] Propofol 1,000 mg In 77.576 100.000 38.969 Empty Bag 1 bag @ Titrate IV .Q0M [place] Rx#: [id number] Tube Feeding 588 588 98 Other 170 90 60 Output: Urine 990 610 95 Stool 500 Hemodialysis 4500 Other: Voiding Method Indwelling Catheter Indwelling Catheter Indwelling Catheter ABP, PAP, CO, CI - Last Documented Arterial Blood Pressure 170/59 - Exam Patient sedated this morning. Full neuro exam unable to obtain HEENT head normocephalic and atraumatic Neck is supple no JVD no goiter no lymphadenopathy Chest exam reveals diminished lung sounds, a few scattered rhonchi no wheezing Cardiac exam reveals regular heart sounds S1 and S2 no gallops no murmurs Abdomen is obese, soft nontender no organomegaly with normal bowel sounds Extremity right BKA. Dressing is clean dry and intact Neuro no gross focal neurological deficit. Patient sedated on mechanical ventilation - Labs CBC & Chem 7: 01/28/19 04:10 01/28/19 04:10 Labs: Abnormal Lab Results - Last 24 Hours (Table) 01/26/19 01/27/19 01/27/19 Range/Units 04:40 11:53 12:22 WBC (3.8-10.6) k/uL RBC (4.30-5.90) m/uL Hgb (13.0-17.5) gm/dL Hct (39.0-53.0) % Neutrophils # (1.3-7.7) k/uL Chloride (98-107) mmol/L Carbon Dioxide (22-30) mmol/L BUN (9-20) mg/dL Creatinine (0.66-1.25) mg/dL Glucose (74-99) mg/dL POC Glucose (mg/dL) 172 H 166 H (75-99) mg/dL Calcium (8.4-10.2) mg/dL Total Protein (6.3-8.2) g/dL Albumin (3.5-5.0) g/dL Hep Bs Antigen Reactive H (Non-Reactive) 01/27/19 01/27/19 01/27/19 Range/Units 15:08 16:06 17:19 WBC (3.8-10.6) k/uL RBC (4.30-5.90) m/uL Hgb (13.0-17.5) gm/dL Hct (39.0-53.0) % Neutrophils # (1.3-7.7) k/uL Chloride (98-107) mmol/L Carbon Dioxide (22-30) mmol/L BUN (9-20) mg/dL Creatinine (0.66-1.25) mg/dL Glucose (74-99) mg/dL POC Glucose (mg/dL) 124 H 139 H 174 H (75-99) mg/dL Calcium (8.4-10.2) mg/dL Total Protein (6.3-8.2) g/dL Albumin (3.5-5.0) g/dL Hep Bs Antigen (Non-Reactive) 01/27/19 01/27/19 01/27/19 Range/Units 18:23 20:06 22:04 WBC (3.8-10.6) k/uL RBC (4.30-5.90) m/uL Hgb (13.0-17.5) gm/dL Hct (39.0-53.0) % Neutrophils # (1.3-7.7) k/uL Chloride (98-107) mmol/L Carbon Dioxide (22-30) mmol/L BUN (9-20) mg/dL Creatinine (0.66-1.25) mg/dL Glucose (74-99) mg/dL POC Glucose (mg/dL) 170 H 176 H 175 H (75-99) mg/dL Calcium (8.4-10.2) mg/dL Total Protein (6.3-8.2) g/dL Albumin (3.5-5.0) g/dL Hep Bs Antigen (Non-Reactive) 01/27/19 01/28/19 01/28/19 Range/Units 23:54 02:00 04:10 WBC 11.9 H (3.8-10.6) k/uL RBC 2.98 L (4.30-5.90) m/uL Hgb 9.0 L (13.0-17.5) gm/dL Hct 27.2 L (39.0-53.0) % Neutrophils # 9.3 H (1.3-7.7) k/uL Chloride (98-107) mmol/L Carbon Dioxide (22-30) mmol/L BUN (9-20) mg/dL Creatinine (0.66-1.25) mg/dL Glucose (74-99) mg/dL POC Glucose (mg/dL) 178 H 175 H (75-99) mg/dL Calcium (8.4-10.2) mg/dL Total Protein (6.3-8.2) g/dL Albumin (3.5-5.0) g/dL Hep Bs Antigen (Non-Reactive) 01/28/19 01/28/19 01/28/19 Range/Units 04:10 04:10 05:55 WBC (3.8-10.6) k/uL RBC (4.30-5.90) m/uL Hgb (13.0-17.5) gm/dL Hct (39.0-53.0) % Neutrophils # (1.3-7.7) k/uL Chloride 110 H (98-107) mmol/L Carbon Dioxide 20 L (22-30) mmol/L BUN 77 H (9-20) mg/dL Creatinine 4.44 H (0.66-1.25) mg/dL Glucose 172 H (74-99) mg/dL POC Glucose (mg/dL) 176 H 178 H (75-99) mg/dL Calcium 7.5 L (8.4-10.2) mg/dL Total Protein 5.5 L (6.3-8.2) g/dL Albumin 2.4 L (3.5-5.0) g/dL Hep Bs Antigen (Non-Reactive) 01/28/19 01/28/19 Range/Units 08:06 10:02 WBC (3.8-10.6) k/uL RBC (4.30-5.90) m/uL Hgb (13.0-17.5) gm/dL Hct (39.0-53.0) % Neutrophils # (1.3-7.7) k/uL Chloride (98-107) mmol/L Carbon Dioxide (22-30) mmol/L BUN (9-20) mg/dL Creatinine (0.66-1.25) mg/dL Glucose (74-99) mg/dL POC Glucose (mg/dL) 147 H 171 H (75-99) mg/dL Calcium (8.4-10.2) mg/dL Total Protein (6.3-8.2) g/dL Albumin (3.5-5.0) g/dL Hep Bs Antigen (Non-Reactive) Assessment and Plan Assessment: #1 gangrene involving the right fifth toe with surrounding cellulitis Status post amputation of fourth and fifth toe with Dr. Bustillos. Patient is currently postop day 4. Possible discussion of below knee amputation rather than attempt at possible revascularization. Arterial Doppler completed, ALMA of the right 0.79. Status post right BKA per vascular surgery #2 sepsis present on admission as evidenced by fever, leukocytosis, and elevated lactic acid. White blood cell improving to 14.2 from 16. Lactic acid normalized, 0.7. Infectious disease is following. Patient remains on Zosyn for IV antibiotics #3 acute hypoxic and hypercapnic respiratory failure with altered mental status changes secondary to severe sepsis. Patient was transferred to the intensive care unit and placed on mechanical ventilation. Patient is sedated on propofol . Per nursing staff patient is following commands . Vent things 50 FiO2, PEEP 5. 500 tidal volume, rate 18. Critical care services are following. possible extubation today per critical care #4. Hypotension secondary to septic shock. Levophed currently off. Blood pressure has improved, systolic 130s to 150s. #5. Acute kidney injury secondary to ATN secondary to hypotension as well as vancomycin toxicity. Nephrology services are following. Ultrasound completed showing no evidence of hydronephrosis. Creatinine increasing to 4. 35 and bun 57. Per nephrology services maintain 0.9 normal saline at 50/ml, avoid nephrot oxins. Vancomycin and lisinopril have been discontinued. continue to monitor urine output closely. Status post hemodialysis per nephrology services. Patient currently maintained on Lasix drip per nephrology creatinine did trend down to 4.76. Patient to receive third round of hemodialysis today. #6. history of essential hypertension. Cardiology services following. EF 50- 55%. Per cardiology services no evidence of acute coronary syndrome at this time #7. insulin-dependent diabetes mellitus, with poor control due to noncompliance last hemoglobin A1c was 9.8 at this time will hold glipizide, Januvia and metformin, and cover was insulin to sliding scale will adjust medications as needed. Blood sugars have been in the 200s after episode of hypoglycemia. Patient currently on insulin drip for tight blood sugar control #8. underlying history of diabetic complications of peripheral neuropathy and retinopathy. #9. poor compliance with medical management, patient had extensive counseling in the last year, his A1c was down to 7.1 in June however it was up to 9.8 again recently. #10 underlying history of hyperlipidemia maintained on atorvastatin, on hold. #11. Hypoglycemia. Home meds DC'd. Tube feedings have been initiated. Hypoglycemia has resolved #12. Suspected aspiration. Orogastric tube was coiled in the patient's mouth with tube feeds running. Tube was removed and replaced. Chest x-ray completed. Overall stable findings, no significant change from prior, bilateral small pleural effusions noted, CHF exacerbation versus fluid overload state. Repeat chest x-ray today per pulmonary. No acute changes made, no change in ABG. Infectious disease is following. DVT prophylaxis heparin. GI prophylaxis Protonix Patient remains in the intensive care unit on mechanical ventilation Critical care, vascular surgery, infectious disease, cardiology and nephrology services following I performed an examination of the patient and discussed their management with bev Nurse Practitioner. I have reviewed the Nurse Practitioner's notes and agree with the documented findings and plan of care
[2019-01-28 11:01] LABS: ABG Base Excess -7.4 mmol/L; ABG HCO3 20 mmol/L (21-25); ABG Oxygen Saturation 96.2 % (94-97); ABG PCO2 45 mmHg (35-45); ABG PH 7.25 (7.35-7.45); ABG PO2 91 mmHg (83-108); ABG TCO2 21 mmol/L (19-24)
[2019-01-28 11:03] LABS: Allen Test Performed? no
[2019-01-28 11:58] LABS: Glucose,Whole Blood 208 mg/dL (75-99)
[2019-01-28 14:08] LABS: Glucose,Whole Blood 189 mg/dL (75-99)
[2019-01-28] MEDS ORDERED: ALTEPLASE 2 MG VIAL (CATHFLO) IV STA (14:15)
[2019-01-28] MEDS: ALTEPLASE 2 MG VIAL (CATHFLO) IV STA ×2 (14:18→14:19)
[2019-01-28 16:24] LABS: Glucose,Whole Blood 121 mg/dL (75-99)
[2019-01-28 16:59] LABS: Glucose,Whole Blood 173 mg/dL (75-99)
[2019-01-28 17:51] LABS: Glucose,Whole Blood 180 mg/dL (75-99)
--- NOTE | 2019-01-28 18:02 | P.PN ---
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, poor compliance, dyslipidemia, dehydration 01/28/2019 Pt seen and examined care plan reviewed during AM rounds had trouble d dialysis due to catheter clogging, renal fx slightly better, cxr not much changed, ABG post cpap/ps suggestive of mild resp acidosis and predominantly Metabolic acidosis, feel that pt would require at least 2-3 more cycles of dialysis before successfully take him of of Vent, would recommend daily dialysis 01/27/2019, patient seen eval examined during the rounds patient is due for dialysis today, remains on full vent setting but however undergoing CPAP pressure support trial with 5 and 10 tolerating very well, per support will be decreased to 5, patient is due for another dialysis later on today, tomorrow will do the CPAP and pressure support and check a blood gas afterwards if does well then possibly extubate, chest x-ray continue show bilateral basilar atelectasis but overall they remained stable labs reviewed medications reviewed care plan discussed with the respiratory therapist and staff nurse icu resource team at length critical care time spent 35 minutes 01/26/2019, patient seen evlilli examined during the rounds labs reviewed medications reviewed, patient has been on Lasix drip 10 mg an hour also on propofol drip 10 mcg, patient had a hemodialysis done here earlier today with intent to remove the fluid, patient will get another hemodialysis tomorrow as well, has placed patient on CPAP of 5 pressure support of 10 is spontaneously breathing the rate is about 16-18 and tidal volume 350-400 range, extensive amount of secretions are present still, patient is not ready not ready for extubation but however they're indeed ready for weaning would recommend contin ued to do hemodialysis on a daily basis for at least 3 or 4 days so that volume overload can be dealt with, right cell count is 12,000 and hemoglobin and hematocrit remained stable arterial blood gas reviewed still have significant metabolic acidosis, renal function continued decline progressively BUN and creatinine up to 84 and 5.2, remains on Zosyn, chest x-ray as above noted to have worsening changes due to fluid overload, culture not growing anything, insulin drip is on sugars better controlled now 01/24/2019, patient seen elizabeth reexamined during the rounds critical care time 35 minutes, patient has a weaning attempt with CPAP and pressure support but was not completed as patient is due for hemodialysis catheter placement in right femoral vein the renal service thinking about hemodialysis tomorrow breathing remains stable patient remains on assist control rate of 18 FiO2 of 50% 5 of PEEP, and renal function continued to deteriorate gradually being output slowly declining 01/23/2019, patient seen evlilli examined during the rounds labs reviewed medications reviewed care plan discussed with the staff at length and had a short weaning attempt and a sedation holiday with which he tolerated for short period of time then becomes tachypneic put back on respirator fit. We'll patient has been diuresing fairly well has been negative for the first time, urine output of 30-40 mL an hour. BUN/creatinine remains stable, patient is postop day #1 of the BKA, chest x-ray from today reviewed findings are most suggestive of fluid overload less likely to be pneumonia, the ET tube and centr al line and NG tube was stable, white cell count is 13,000 arterial blood gases remained stable, BUN/creatinine gradually going up is 60 and 4.8 to, sugar is running on the higher side last check sugar was over 260 patient is being started on insulin drip 01/21/2019, patient seen and evaluated examined during the rounds labs reviewed medications reviewed, patient the remains on sedation with propofol mildly sedated he does wake up follow simple commands and munira -1-2, he remains on IV fluids gently being rehydrated 50 mL an hour to feed is being given this morning patient noted to have a tube coiling in the mouth as He is to have pulled out late morning hours, the need to be has been placed position has been confirmed chest x-ray continued to show for evidence of fluid overload and this should edema along with possible infiltrate, he remains on assist control rate of 18 and tidal volume of 505 of PEEP and oxygen is 50% he is +1.2 L since morning, care plan discussed with nephrology as well as the vascular surgery, as his BUN and creatinine continued to go up creatinine is 5.1 in spite of good adequate urine output, patient continue on broad-spectrum antibiotic when setting remains stable respiratory secretions are still thick tenacious and appears to be improving slowly, blood cultures and sputum culture has been negative, need to make eyes and nose on the negative side as well as would like to see been function improving before consideration of weaning that anticipate will take another 24-48 hours 01/20/2019, patient seen eval examined during the rounds and labs reviewed medications reviewed critical care time spent 35 minutes, patient remains on assist control rate 18 and tidal volume of 500 along with PEEP of 5, patient is sedated with propofol drip but doesn't respond to simple stimuli, patient has been making good amount of urine levo fed is not require S patient is hemodynamically stable urine output has improved to 50-60 mL an hour post Lasix which is advised by nephrology service urine output has improved, patient has been tolerating tube feed well given that volume overload situation due to hypotension and was given fluid for resuscitation patient gently being diuresed, she he remains on broad-spectrum antibiotic sliding scale insulin labs reviewed medications reviewed care plan discussed with the staff and 2 brothers at bedside at length, chest x-ray from today reviewed bilateral atelectasis and fluid overload is present overall suggestive of more of his CHF and pneumonia, white cell count is stable, arterial blood gases improved, BUN/creatinine continue to go up 56 and 4.17, sugars have been stabilized 01/19/2019, patient seen and evaluated examined in the ICU intubated on full ventilator support, patient had gradual loss of consciousness has been more lethargic arterial blood gases were checked shows hypercapnic and hypoxic respiratory failure was intubated in the ICU, patient has been placed on propofol he was volume depleted depleted aggressive fluid resuscitation were performed, is still require levo fed intermittently, patient was also noted to be hypoglycemic 7030 insulin and other oral hypoglycemic agents were discontinued, ultrasound of the abdomen has been performed which is reviewed no obvious hydronephrosis seen, patient has decreased urine output along with rising BUN/creatinine appeared to be acute tubular necrosis, patient also requiring intermittent bolus of D10 for hypoglycemia, wounds has been evaluated by vascular surgery noted recommendation, patient has very poor venous access, will put a central line in, critical care time 45 minutes during procedure, due to altered mental status CT of the head was performed which was negative 01/18/2019, patient seen eval examined while covering for Dr. Granger, waking up this morning slightly slow to respond but not confused, breathing comfortably denies any chest pain labs reviewed today patient has been evaluated by Dr. Bassett, white cell count is coming down to 19,000, lactic acid level is normalized, patient has been on broad-spectrum antibiotics with vascular surgery on board Objective - Vital Signs Vital signs: Vital Signs Temp 98.8 F 01/28/19 16:00 Pulse 70 01/28/19 17:00 Resp 18 01/28/19 17:00 BP 140/66 01/28/19 16:00 Pulse Ox 98 01/28/19 17:00 Intake & Output 01/27/19 01/28/19 01/28/19 18:59 06:59 18:59 Intake Total 1632.586 3813.158 1017.095 Output Total 5990 610 885 Balance -4605.062 678.158 132.095 Weight 121.4 kg 119.9 kg Intake: IV 326.0 376 250 0.9 Normal Saline ( 36 36 30 pressure bag) at 3mL/hr Piperacillin-Tazobactam 3 50.0 120 .375 gm In Sodium Chloride 0.9% 100 ml @ 25 mls/hr IVPB Q12HR [place] Rx #:[id number] Sodium Chloride 0.9% 1, 240 220 220 000 ml @ 20 mls/hr IV . Q24H [place] Rx#:[id number] Intake, IV Titration 300.938 234.158 206.095 Amount Furosemide 100 mg In 178.5 88 81 Sodium Chloride 0.9% 90 ml @ 10 MG/HR 10 mls/hr IV .Q10H [place] Rx#: [id number] Insulin Regular 100 unit 32.362 46.158 44.761 In Sodium Chloride 0.9% 100 ml @ Per Protocol IV .Q0M [place] Rx#:[id number] Piperacillin-Tazobactam 3 12.5 .375 gm In Sodium Chloride 0.9% 100 ml @ 25 mls/hr IVPB Q12HR [place] Rx #:[id number] Propofol 1,000 mg In 77.576 100.000 80.334 Empty Bag 1 bag @ Titrate IV .Q0M [place] Rx#: [id number] Tube Feeding 588 588 441 Other 170 90 120 Output: Urine 990 610 385 Stool 500 500 Hemodialysis 4500 Other: Voiding Method Indwelling Catheter Indwelling Catheter Indwelling Catheter # Voids 1 ABP, PAP, CO, CI - Last Documented Arterial Blood Pressure 145/51 - Exam Intubated on full vent support on propofol getting IV fluids normal saline due to hypotension one more fluid bolus being given In general patient is alert and oriented 3 while propofol was stopped s HEENT head normocephalic and atraumatic Neck is supple no JVD no goiter no lymphadenopathy Chest exam reveals a few scattered rhonchi no wheezing Cardiac exam reveals regular heart sounds S1 and S2 no gallops no murmurs Abdomen is soft nontender no organomegaly with normal bowel sounds Extremity exam status post right BKA Neuro no gross focal neurological deficit, patient has anisocoria - Labs CBC & Chem 7: 01/28/19 04:10 01/28/19 04:10 Labs: Abnormal Lab Results - Last 24 Hours (Table) 01/27/19 01/27/19 01/27/19 Range/Units 18:23 20:06 22:04 WBC (3.8-10.6) k/uL RBC (4.30-5.90) m/uL Hgb (13.0-17.5) gm/dL Hct (39.0-53.0) % Neutrophils # (1.3-7.7) k/uL ABG pH (7.35-7.45) ABG HCO3 (21-25) mmol/L Chloride (98-107) mmol/L Carbon Dioxide (22-30) mmol/L BUN (9-20) mg/dL Creatinine (0.66-1.25) mg/dL Glucose (74-99) mg/dL POC Glucose (mg/dL) 170 H 176 H 175 H (75-99) mg/dL Calcium (8.4-10.2) mg/dL Total Protein (6.3-8.2) g/dL Albumin (3.5-5.0) g/dL 01/27/19 01/28/19 01/28/19 Range/Units 23:54 02:00 04:10 WBC 11.9 H (3.8-10.6) k/uL RBC 2.98 L (4.30-5.90) m/uL Hgb 9.0 L (13.0-17.5) gm/dL Hct 27.2 L (39.0-53.0) % Neutrophils # 9.3 H (1.3-7.7) k/uL ABG pH (7.35-7.45) ABG HCO3 (21-25) mmol/L Chloride (98-107) mmol/L Carbon Dioxide (22-30) mmol/L BUN (9-20) mg/dL Creatinine (0.66-1.25) mg/dL Glucose (74-99) mg/dL POC Glucose (mg/dL) 178 H 175 H (75-99) mg/dL Calcium (8.4-10.2) mg/dL Total Protein (6.3-8.2) g/dL Albumin (3.5-5.0) g/dL 01/28/19 01/28/19 01/28/19 Range/Units 04:10 04:10 05:55 WBC (3.8-10.6) k/uL RBC (4.30-5.90) m/uL Hgb (13.0-17.5) gm/dL Hct (39.0-53.0) % Neutrophils # (1.3-7.7) k/uL ABG pH (7.35-7.45) ABG HCO3 (21-25) mmol/L Chloride 110 H (98-107) mmol/L Carbon Dioxide 20 L (22-30) mmol/L BUN 77 H (9-20) mg/dL Creatinine 4.44 H (0.66-1.25) mg/dL Glucose 172 H (74-99) mg/dL POC Glucose (mg/dL) 176 H 178 H (75-99) mg/dL Calcium 7.5 L (8.4-10.2) mg/dL Total Protein 5.5 L (6.3-8.2) g/dL Albumin 2.4 L (3.5-5.0) g/dL 01/28/19 01/28/19 01/28/19 Range/Units 08:06 10:02 10:55 WBC (3.8-10.6) k/uL RBC (4.30-5.90) m/uL Hgb (13.0-17.5) gm/dL Hct (39.0-53.0) % Neutrophils # (1.3-7.7) k/uL ABG pH 7.25 L (7.35-7.45) ABG HCO3 20 L (21-25) mmol/L Chloride (98-107) mmol/L Carbon Dioxide (22-30) mmol/L BUN (9-20) mg/dL Creatinine (0.66-1.25) mg/dL Glucose (74-99) mg/dL POC Glucose (mg/dL) 147 H 171 H (75-99) mg/dL Calcium (8.4-10.2) mg/dL Total Protein (6.3-8.2) g/dL Albumin (3.5-5.0) g/dL 01/28/19 01/28/19 01/28/19 Range/Units 11:57 14:07 16:23 WBC (3.8-10.6) k/uL RBC (4.30-5.90) m/uL Hgb (13.0-17.5) gm/dL Hct (39.0-53.0) % Neutrophils # (1.3-7.7) k/uL ABG pH (7.35-7.45) ABG HCO3 (21-25) mmol/L Chloride (98-107) mmol/L Carbon Dioxide (22-30) mmol/L BUN (9-20) mg/dL Creatinine (0.66-1.25) mg/dL Glucose (74-99) mg/dL POC Glucose (mg/dL) 208 H 189 H 121 H (75-99) mg/dL Calcium (8.4-10.2) mg/dL Total Protein (6.3-8.2) g/dL Albumin (3.5-5.0) g/dL 01/28/19 01/28/19 Range/Units 16:58 17:50 WBC (3.8-10.6) k/uL RBC (4.30-5.90) m/uL Hgb (13.0-17.5) gm/dL Hct (39.0-53.0) % Neutrophils # (1.3-7.7) k/uL ABG pH (7.35-7.45) ABG HCO3 (21-25) mmol/L Chloride (98-107) mmol/L Carbon Dioxide (22-30) mmol/L BUN (9-20) mg/dL Creatinine (0.66-1.25) mg/dL Glucose (74-99) mg/dL POC Glucose (mg/dL) 173 H 180 H (75-99) mg/dL Calcium (8.4-10.2) mg/dL Total Protein (6.3-8.2) g/dL Albumin (3.5-5.0) g/dL Assessment and Plan Assessment: Altered mental status Hypoxic and hypercapnic respiratory failure Acute on chronic renal failure Bilateral atelectasis and possible aspiration pneumonia Fluid overload and acute interstitial edema Severe hypoglycemia 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 Sepsis and septic shock Insulin-dependent diabetes mellitus poorly controlled, being started on insulin drip Hypertension hypertensive cardiovascular disease Dyslipidemia Plan: We'll continue the weaning process patient on CPAP 5 pressure support 5 for 1 hour 3 times a day as tolerated with a sedation holiday, possibly weaning extubation tomorrow Continue dialysis once patient is significantly negative and tolerated dialysis well and consider extubation which will likely be in next 48-72 hours once fluid overload is compromised Continue vent support ventilated been adjusted Insulin drip, sugars are better controlled with that Monitor renal functions closely once patient is negative and renal function improving we will initiate the weaning process Patient observation monitored off of propofol does follow simple commands Will observe and monitor anisocoria Renal consultation and recommendations reviewed Continue gentle diuresis Broad-spectrum antibiotics Critical care time 35 minutes excluding procedure Time with Patient: Greater than 30
--- NOTE | 2019-01-28 18:06 | PN ---
PROGRESS NOTE Patient is seen for followup for acute kidney injury. Patient had about 2 L of ultrafiltration yesterday. He continues to have fair amount of urine output. However, over the last 3 hours. Urine output had dropped down to about 20% to 30 mL an hour. The patient remains on Lasix drip. His FiO2 is at 50%. He is currently on CPAP. PHYSICAL EXAMINATION: This morning, blood pressure was 131/61, heart rate of 80 per minute, patient is afebrile. Examination of the heart S1, S2. Examination of the lungs, decreased breath sounds at bases. Abdomen is soft, nontender. Examination of lower extremities shows right BKA, 1+ edema left lower extremity. UROLOGIC SURGEON exam cannot be performed however patient is awake and follows some commands. He is moving all 4 extremities. LABS SHOW: Sodium 139, potassium 4.0, chloride 110, CO2 is 20, BUN 77. Serum creatinine 4.4, hemoglobin 9.0 g/dL. ASSESSMENT: 1. Acute kidney injury, acute tubular necrosis, currently nonoliguric with volume overload, status post 2 treatments of hemodialysis. Patient will be dialyzed again today and we will plan to dialyze him again tomorrow and hopefully this will help with the extubation. 2. Hypoxic and hypercapnic respiratory failure. 3. Status post right below knee amputation for wet gangrene and previous amputation of the toes on the right foot. 4. Volume overload, maintained on Lasix drip along with ultrafiltration with hemodialysis on a daily basis for the last 4 days. 5. Anemia, multifactorial. No active bleeding noted at this time. PLAN: Hemodialysis today and then again in a.m. We will notify vascular surgery as the catheter is not working well. The patient will benefit from a tunneled catheter. I will continue with the Lasix drip for now. MMODL / IJN: [id number] /
[2019-01-28 19:13] LABS: Glucose,Whole Blood 168 mg/dL (75-99)
[2019-01-28 20:08] LABS: Glucose,Whole Blood 153 mg/dL (75-99)
[2019-01-28 21:57] LABS: Glucose,Whole Blood 197 mg/dL (75-99)
[2019-01-28 23:55] LABS: Glucose,Whole Blood 178 mg/dL (75-99)
[2019-01-29 02:03] LABS: Glucose,Whole Blood 191 mg/dL (75-99)
[2019-01-29 04:16] LABS: Glucose,Whole Blood 182 mg/dL (75-99)
[2019-01-29 04:18] LABS: Basophils # (A) 0.1 k/uL (0-0.2); Basophils % (A) 1 %; Eosinophils # (A) 0.3 k/uL (0-0.7); Eosinophils % (A) 3 %; HCT 24.6 % (39.0-53.0); HGB 8.1 gm/dL (13.0-17.5); Lymphocytes # (A) 0.9 k/uL (1.0-4.8); Lymphocytes % (A) 9 %; MCH 29.3 pg (25.0-35.0); MCHC 32.7 g/dL (31.0-37.0); MCV 89.6 fL (80.0-100.0); Mean Platelet Volume 11.1; Monocytes # (A) 0.4 k/uL (0-1.0); Monocytes % (A) 4 %; Neutrophils # (A) 8.4 k/uL (1.3-7.7); Neutrophils % (A) 83 %; Platelet Count 170 k/uL (150-450); RBC 2.75 m/uL (4.30-5.90); WBC 10.1 k/uL (3.8-10.6)
[2019-01-29] MEDS: NOREPINEPHRINE 4 MG in SODIUM CHLORIDE 0.9% 250 ML IV SCH ×2 (04:24→17:20)
[2019-01-29 04:34] LABS: Albumin 2.3 g/dL (3.5-5.0); Calcium 7.4 mg/dL (8.4-10.2); Potassium 4.1 mmol/L (3.5-5.1); Total Bilirubin 0.3 mg/dL (0.2-1.3); Total Protein 5.3 g/dL (6.3-8.2)
[2019-01-29 06:04] LABS: Glucose,Whole Blood 134 mg/dL (75-99)
[2019-01-29 06:53] LABS: Glucose,Whole Blood 151 mg/dL (75-99)
[2019-01-29 08:05] LABS: Glucose,Whole Blood 136 mg/dL (75-99)
[2019-01-29] MEDS: PROPOFOL 1,000 MG in EMPTY BAG 1 BAG IV SCH ×2 (08:35→20:36)
[2019-01-29] MEDS: GABAPENTIN 100 MG CAP PO SCH ×3 (09:08→23:26)
[2019-01-29] MEDS: HEPARIN SODIUM,PORCINE 5,000 UNIT/ML 1 ML VIAL SQ SCH ×3 (09:08→23:25)
[2019-01-29] MEDS: PANTOPRAZOLE 40 MG/10 ML VIAL IV SCH (09:08)
[2019-01-29] MEDS: FLUoxetine HCL 20 MG CAP PO SCH (09:08)
[2019-01-29] MEDS: CHLORHEXIDINE GLUCONATE 15 ML CUP MUCOUS MEM SCH ×2 (09:08→23:25)
[2019-01-29] MEDS: PIPERACILLIN-TAZOBACTAM 3.375 GM in SODIUM CHLORIDE 0.9% 100 ML IVPB SCH ×2 (09:09→20:44)
[2019-01-29] MEDS: FUROSEMIDE 100 MG in SODIUM CHLORIDE 0.9% 90 ML IV SCH (09:09)
[2019-01-29] MEDS: SODIUM CHLORIDE 0.9% 1,000 ML IV SCH ×2 (09:18→20:36)
[2019-01-29] MEDS: BRIMONIDINE TARTRATE 0.2% DROPS 5 ML BTL LEFT EYE SCH ×3 (09:27→20:40)
[2019-01-29] MEDS: DORZOLAMIDE HCL 2% DROPS 10 ML BTL LEFT EYE SCH ×3 (09:27→20:39)
[2019-01-29] MEDS: TIMOLOL 0.5% OPHTH DROPS 5 ML BTL LEFT EYE SCH ×2 (09:27→20:40)
[2019-01-29] MEDS: MORPHINE SULFATE 2 MG/ML SYRINGE IVP PRN ×2 (09:56→18:23)
[2019-01-29 10:07] LABS: Glucose,Whole Blood 148 mg/dL (75-99)
--- NOTE | 2019-01-29 10:50 | P.PN ---
Subjective Progress Note Date: 01/29/19 Patient seen and examined. CPAP trial yesterday patient tolerated approximately 3 hours in the afternoon but second trial through the evening was only able to tolerate approximately 30 minutes. No other issues overnight per nursing. Patient continues with hemodialysis, plan today for tunneled dialysis catheter placement. Objective - Vital Signs Vital signs: Vital Signs Temp 37.1 F L 01/29/19 08:00 Pulse 71 01/29/19 10:00 Resp 18 01/29/19 10:00 BP 133/58 01/29/19 10:00 Pulse Ox 97 01/29/19 10:00 Intake & Output 01/28/19 01/29/19 01/29/19 18:59 06:59 18:59 Intake Total 1089.095 720.182 338.401 Output Total 935 605 455 Balance 154.095 115.182 -116.599 Weight 120.8 kg Intake: IV 273 276 142 0.9 Normal Saline ( 33 36 12 pressure bag) at 3mL/hr Piperacillin-Tazobactam 3 50 .375 gm In Sodium Chloride 0.9% 100 ml @ 25 mls/hr IVPB Q12HR [place] Rx #:[id number] Sodium Chloride 0.9% 1, 240 240 80 000 ml @ 20 mls/hr IV . Q24H [place] Rx#:[id number] Intake, IV Titration 206.095 218.182 196.401 Amount Furosemide 100 mg In 81 100 94.5 Sodium Chloride 0.9% 90 ml @ 10 MG/HR 10 mls/hr IV .Q10H [place] Rx#: [id number] Insulin Regular 100 unit 44.761 37.849 1.692 In Sodium Chloride 0.9% 100 ml @ Per Protocol IV .Q0M [place] Rx#:[id number] Propofol 1,000 mg In 80.334 80.333 100.209 Empty Bag 1 bag @ Titrate IV .Q0M [place] Rx#: [id number] Tube Feeding 490 196 Other 120 30 Output: Urine 435 605 455 Stool 500 Other: Voiding Method Indwelling Catheter Indwelling Catheter Indwelling Catheter # Voids 1 ABP, PAP, CO, CI - Last Documented Arterial Blood Pressure 147/51 - Exam no acute distress, patient intubated and sedated at this time Heart regular rate and rhythm Lungs sounds coarse otherwise clear to auscultation Abdomen soft, nontender left femoral hemodialysis catheter Extremities: Right lower extremity amputation with decreased edema, rigid dressing and stump business continuity planner in place. - Labs CBC & Chem 7: 01/29/19 04:05 01/29/19 04:05 Labs: Abnormal Lab Results - Last 24 Hours (Table) 01/28/19 01/28/19 01/28/19 Range/Units 10:55 11:57 14:07 RBC (4.30-5.90) m/uL Hgb (13.0-17.5) gm/dL Hct (39.0-53.0) % Neutrophils # (1.3-7.7) k/uL Lymphocytes # (1.0-4.8) k/uL ABG pH 7.25 L (7.35-7.45) ABG HCO3 20 L (21-25) mmol/L Chloride (98-107) mmol/L Carbon Dioxide (22-30) mmol/L BUN (9-20) mg/dL Creatinine (0.66-1.25) mg/dL Glucose (74-99) mg/dL POC Glucose (mg/dL) 208 H 189 H (75-99) mg/dL Calcium (8.4-10.2) mg/dL Total Protein (6.3-8.2) g/dL Albumin (3.5-5.0) g/dL 01/28/19 01/28/19 01/28/19 Range/Units 16:23 16:58 17:50 RBC (4.30-5.90) m/uL Hgb (13.0-17.5) gm/dL Hct (39.0-53.0) % Neutrophils # (1.3-7.7) k/uL Lymphocytes # (1.0-4.8) k/uL ABG pH (7.35-7.45) ABG HCO3 (21-25) mmol/L Chloride (98-107) mmol/L Carbon Dioxide (22-30) mmol/L BUN (9-20) mg/dL Creatinine (0.66-1.25) mg/dL Glucose (74-99) mg/dL POC Glucose (mg/dL) 121 H 173 H 180 H (75-99) mg/dL Calcium (8.4-10.2) mg/dL Total Protein (6.3-8.2) g/dL Albumin (3.5-5.0) g/dL 01/28/19 01/28/19 01/28/19 Range/Units 19:11 19:56 21:56 RBC (4.30-5.90) m/uL Hgb (13.0-17.5) gm/dL Hct (39.0-53.0) % Neutrophils # (1.3-7.7) k/uL Lymphocytes # (1.0-4.8) k/uL ABG pH (7.35-7.45) ABG HCO3 (21-25) mmol/L Chloride (98-107) mmol/L Carbon Dioxide (22-30) mmol/L BUN (9-20) mg/dL Creatinine (0.66-1.25) mg/dL Glucose (74-99) mg/dL POC Glucose (mg/dL) 168 H 153 H 197 H (75-99) mg/dL Calcium (8.4-10.2) mg/dL Total Protein (6.3-8.2) g/dL Albumin (3.5-5.0) g/dL 01/28/19 01/29/19 01/29/19 Range/Units 23:54 02:02 04:03 RBC (4.30-5.90) m/uL Hgb (13.0-17.5) gm/dL Hct (39.0-53.0) % Neutrophils # (1.3-7.7) k/uL Lymphocytes # (1.0-4.8) k/uL ABG pH (7.35-7.45) ABG HCO3 (21-25) mmol/L Chloride (98-107) mmol/L Carbon Dioxide (22-30) mmol/L BUN (9-20) mg/dL Creatinine (0.66-1.25) mg/dL Glucose (74-99) mg/dL POC Glucose (mg/dL) 178 H 191 H 182 H (75-99) mg/dL Calcium (8.4-10.2) mg/dL Total Protein (6.3-8.2) g/dL Albumin (3.5-5.0) g/dL 01/29/19 01/29/19 01/29/19 Range/Units 04:05 04:05 05:53 RBC 2.75 L (4.30-5.90) m/uL Hgb 8.1 L (13.0-17.5) gm/dL Hct 24.6 L (39.0-53.0) % Neutrophils # 8.4 H (1.3-7.7) k/uL Lymphocytes # 0.9 L (1.0-4.8) k/uL ABG pH (7.35-7.45) ABG HCO3 (21-25) mmol/L Chloride 109 H (98-107) mmol/L Carbon Dioxide 18 L (22-30) mmol/L BUN 89 H (9-20) mg/dL Creatinine 4.80 H (0.66-1.25) mg/dL Glucose 172 H (74-99) mg/dL POC Glucose (mg/dL) 134 H (75-99) mg/dL Calcium 7.4 L (8.4-10.2) mg/dL Total Protein 5.3 L (6.3-8.2) g/dL Albumin 2.3 L (3.5-5.0) g/dL 01/29/19 01/29/19 01/29/19 Range/Units 06:51 08:04 10:05 RBC (4.30-5.90) m/uL Hgb (13.0-17.5) gm/dL Hct (39.0-53.0) % Neutrophils # (1.3-7.7) k/uL Lymphocytes # (1.0-4.8) k/uL ABG pH (7.35-7.45) ABG HCO3 (21-25) mmol/L Chloride (98-107) mmol/L Carbon Dioxide (22-30) mmol/L BUN (9-20) mg/dL Creatinine (0.66-1.25) mg/dL Glucose (74-99) mg/dL POC Glucose (mg/dL) 151 H 136 H 148 H (75-99) mg/dL Calcium (8.4-10.2) mg/dL Total Protein (6.3-8.2) g/dL Albumin (3.5-5.0) g/dL Assessment and Plan Assessment: Status post right below the knee amputation for wet gangrene, inability to wean from ventilator Status post right foot fourth and fifth toe amputation Acute kidney failure, status post placement of temporary dialysis catheter on hemodialysis wet gangrene right fifth toe uncontrolled type 2 diabetes previous amputation for infected gangrene toe on the left foot hyperlipidemia hypertension previous NC Plan: Patient is scheduled this afternoon with Dr. Bustillos for tunneled dialysis catheter placement. Continue supportive care per ICU. The above dictated assessment and findings were discussed with Dr. Bustillos. The impression and plan of care have been directed as dictated.
[2019-01-29 10:57] LABS: Glucose,Whole Blood 164 mg/dL (75-99)
[2019-01-29 12:08] LABS: Glucose,Whole Blood 128 mg/dL (75-99)
--- NOTE | 2019-01-29 12:37 | XR ---
EXAMINATION TYPE: XR chest 1V portable DATE OF EXAM: 01/29/2019 COMPARISON: 01/28/2019 HISTORY: SOB, Follow Up FINDINGS: Indwelling tubes and catheters are unchanged. No change in perihilar and basilar opacities. Stable appearance of the cardio-mediastinal structures at this time. Pleural effusion unchanged. IMPRESSION: 1. Stable portable chest. Clinical correlation and follow up until resolution is recommended.
[2019-01-29 15:13] LABS: Glucose,Whole Blood 159 mg/dL (75-99)
--- NOTE | 2019-01-29 15:28 | PN ---
PROGRESS NOTE Patient is seen for followup for acute kidney injury. He continues to have good urine output now at about 30-40 mL an hour. Patient is maintained on Lasix drip. He was dialyzed yesterday. His catheter was not working too well. We were not able to get much ultrafiltration. Patient will be dialyzed again today. There are plans for PermCath placement later on today. PHYSICAL EXAMINATION: This morning blood pressure 133/58, heart rate 71 per minute, he is afebrile. Examination of the heart S1, S2. Examination of the lungs, bilateral breath sounds are heard. The patient is sedated, he is on the vent. Abdomen is soft, nontender, obese. Examination of lower extremities shows right BKA. Trace edema left lower extremity. SILK SNAPPER exam cannot be performed. LABS: Show sodium 138, potassium 4.1, chloride is 109, CO2 is 18, BUN 89, creatinine 4.8, hemoglobin 8.1 g/dL. ASSESSMENT: 1. Acute kidney injury, acute tubular necrosis, currently being dialyzed on a daily basis. We will dialyze the patient again today. He will have an IJ PermCath later on today. 2. Status post right BKA. 3. Anemia, multifactorial, no evidence of gastrointestinal bleed. 4. Volume overload, maintained on Lasix drip. PLAN: PermCath placement today, goal UF 1-2 L as tolerated. I will change the Lasix drip to IV push Lasix 60 IV q.8 hours. We will assess for dialysis on a daily basis. MMODL / IJN: [id number] /
[2019-01-29] MEDS ORDERED: HEPARIN SODIUM (1,000 UNIT/ML) 2,000 UNIT in SODIUM CHLORIDE 0.9% 1,000 ML IRRIGATION ONE (16:06)
[2019-01-29] MEDS ORDERED: SODIUM CHLORIDE 0.9% 50 ML with ceFAZolin 2,000 MG IV ONE ×2 (16:08)
[2019-01-29] MEDS ORDERED: LACTATED RINGERS 1,000 ML IV ONE (16:42)
[2019-01-29] MEDS ORDERED: HEPARIN SODIUM,PORCINE 100 UNIT/ML 5 ML VIAL IV ONE (16:49)
--- NOTE | 2019-01-29 17:14 | P.OP ---
Date of Procedure: 01/29/19 Description of Procedure: DATE OF PROCEDURE: 01/29/2019 PREOPERATIVE DIAGNOSIS: [Acute renal failure]. PROCEDURE: Ultrasound-guided right cephalic IV, 18-gauge Ultrasound-guided left cephalic IV, 20-gauge Placement of a [28] cm tunneled dialysis catheter via wire exchange from previously placed catheter. PROCEDURE: This patient was brought to the operating suite. He was placed in supine position. He had been previously intubated in the ICU. His right neck was then prepped and draped in usual sterile fashion. He initially had a central line in his right internal jugular previously placed. At this time ultrasound was utilized in the periphery and 2 large-bore cephalic IVs were placed under ultrasound guidance good return of blood and good flow. At that point attention was turned to the neck. The Glidewire was placed down through the previous catheter. It was confirmed and positioning in the inferior vena cava. The previous catheter was removed. A dilator was placed and left in place. A incision was treated on the anterior chest wall and the previously flushed catheter was then tunneled. Serial dilation was performed over the wire. The tear-away sheath was then placed over the wire left in place. The catheter was then placed in the tear-away sheath was removed. Final fluoroscopic imaging revealed a good curvature with good resting position in the cavoatrial junction. The catheter aspirated and flushed freely. Heparinized saline was placed. The neck incision was re-approximate with intermittent sutures of 4-0 Vicryl. The catheter was sutured in place with 3-0 nylon. Dressings were placed. Patient tolerated the procedure well and was transferred back to ICU in critical condition
--- NOTE | 2019-01-29 17:37 | P.PN ---
Subjective Progress Note Date: 01/29/19 Refugio Saenz, is a 68-year-old male who presented to [facility] emergency room with pain in the right foot, he was evaluated in emergency room and had blackish discoloration of the right fifth toe with surrounding erythema and tenderness, patient was started on IV antibiotics Zosyn, vancomycin, and clindamycin, he was admitted to medical floor vascular surgery consultation was requested for possible amputation due to evidence of gangrene. Infectious disease consultation was requested. Patient has a known history of insulin-dependent diabetes mellitus, his glucose level was well controlled up until September of this year his A1c in June was 7.1 and in September was 7.3 however apparently patient stopped taking his insulin and his medications and his A1c was up to 9.8 in November, he has a known history of right foot ulcer he was admitted to the hospital with right foot cellulitis and ulcer in 2014 and he was followed at the wound care clinic in 2015 however he was doing well up until recently. Patient also has a known history of hypertension, hyperlipidemia, he denies any history of coronary artery disease or congestive heart failure, he had an echocardiogram done in 2014 at that time he had normal left ventricular function was normal ejection fraction, no significant valvular disease and no pulmonary hypertension. 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 On 01/17/2019 patient's alert and oriented 3. Patient had fourth and fifth toe amputation with Dr. Bustillos this morning. Patient having some low blood pressure will give 500 mL bolus. Patient denies chest pain or shortness of breath. Patient denies nausea vomiting or diarrhea. Patient is having some increased pain to foot area pain medications ordered 01/18/2019, patient seen eval examined while covering for Dr. Granger, waking up this morning slightly slow to respond but not confused, breathing comfortably denies any chest pain labs reviewed today patient has been evaluated by Dr. Bassett, white cell count is coming down to 19,000, lactic acid level is normalized, patient has been on broad-spectrum antibiotics with vascular surgery on board 01/19/2019, patient seen and evaluated examined in the ICU intubated on full ventilator support, patient had gradual loss of consciousness has been more lethargic arterial blood gases were checked shows hypercapnic and hypoxic respiratory failure was intubated in the ICU, patient has been placed on prop ofol he was volume depleted depleted aggressive fluid resuscitation were performed, is still requiring levophed intermittently, patient was also noted to be hypoglycemic 7030 insulin and other oral hypoglycemic agents were discontinued, ultrasound of the abdomen has been performed which is reviewed no obvious hydronephrosis seen, patient has decreased urine output along with rising BUN/creatinine appeared to be acute tubular necrosis, patient also requiring intermittent bolus of D10 for hypoglycemia, wounds has been evaluated by vascular surgery noted recommendation, patient has very poor venous access, will put a central line in, critical care time 45 minutes during procedure, due to altered mental status CT of the head was performed which was negative On 01/20/2019 patient remains in the intensive care unit on mechanical ventilation. Levophed has been on hold blood pressures has sustained. Creatinine has increased to 4.17 and bun 56. Nephrology services are following. Per nursing staff patient does follow commands during sedation holiday ABGs have improved. Discussed case with vascular surgeon nurse practitioner possible BKA discussion. White blood cell decreasing to 16.0. Critical care services are following. Patient remains on Zosyn for IV antibiotics. Infectious disease following 01/21/2019 patient remains on mechanical ventilation on in the intensive care unit. Patient remains sedated, on propofol. However per nursing staff patient does follow commands during sedation holiday. Patient is on 50% FiO2, 5 PEEP, tidal volume 500. Levophed off since 01/20/20. Blood pressure remains in the 130's-150's systolic. Creatinine 4.35 from 4.17 and BUN 57 from 56, Calcium 7.0, phosphorus 5.9 Nephrology is following. Orogastric tube replaced this morning. Per nursing staff OG tube was coiled in patient's mouth with tube feeds running. Chest x-ray repeated, no significant change from previous. ABG improving, still metabolic acidosis. WBC of 14.1 down from 16. Afebrile. Infectious disease is following patient is maintained on Zosyn. Will send C. diff sample due to new onset diarrhea for 1 day. Hyperglycemia noted (glucose 200's). Will discuss tube feed formula with dietary. If no changes can be made will adjust sliding scale. On 01/22/2019 patient remains sedated on mechanical ventilation in the intensive care unit. Per nursing staff patient is to have a BKA today with Dr. Bustillos. Patient remains off pressors, blood pressure has been stable. Chest x-ray repeated this morning, per pulmonary. No significant change in ABGs. Creatinine continues to increase, 4.84 today BUN 60, patient is still making adequate urine output nephrology is following. Tube feeds on hold, for pending OR. WBC 14.2, temperature overnight 100F. Please is following patient is maintained on Zosyn. C. diff sample was negative. 01/23/2019 patient remains sedated and on mechanical ventilation in the ICU. He underwent right BKA yesterday, 01/22/[address] Bustillos. Estimated blood loss 150 mL. He had a temp of 100 last night. Urine output is about 50 mL per hour. Creatinine has gone down from 4.84-4.82. Nephrology is following closely. No plans for hemodialysis yet. Patient's blood sugars are starting to become more elevated. They're in the 180s to 200s. Tube feedings are being adjusted. White count 13.7 hemoglobin 10.3 On 01/24/2019 patient remains sedated on mechanical ventilation in the intensive care unit. Decreased urine output throughout night. Creatinine 5.15 and bun 68. Patient remains on insulin drip. WBC 14.1. Patient having low-grade temps. Patient remains closely followed by critical care consulting providers On 01/25/2019 patient was seen and examined in the intensive care unit, he is currently alert and maintained on BiPAP trial, he is making more urine output, and no hemodialysis is scheduled at this time, creatinine improved, down from 5.15-4.44 white blood count down to 11.3 patient is followed by nephrology, infectious disease, pulmonary and critical care and vascular surgery On 01/26/2019 patient was seen and examined in the ICU, he is intubated sedated maintained on mechanical ventilation, creatinine went up today and he was started on hemodialysis, Zosyn has today, at this time will resume Zosyn, we have asked infectious disease to see patient and reassess antibiotics, otherwise patient is stable there is no fever or chills, he continues to have a rectal tube and having large amount of diarrhea, C. diff was checked and was negative will repeat test today. On 01/27/2019 patient remains on mechanical ventilation in the intensive care unit. Creatinine trending down today 4.76 and bun 77. Patient remains on Lasix drip per nephrology services. White count 11.8. She remains on IV Zosyn. Sedation holiday performed per nursing staff and critical care recommendation. On 01/28/2019 patient remains in the intensive care unit on mechanical ventilation. Sedation currently turned off. Patient is awake and following commands possible extubation today per critical care. Patient also received hemodialysis this will be the patient's third round of hemodialysis. Creatinine is trending down 4.44. Patient remains on Lasix drip. On 01/29/2019 patient remains in ICU intubated sedated maintained on mechanical ventilation, he had to CPAP trials yesterday, he is still maintained on hemodialysis, creatinine is elevated at 4.8 and BUN 89. Objective - Vital Signs Vital signs: Vital Signs Temp 98.7 F 01/29/19 13:42 Pulse 71 01/29/19 15:00 Resp 18 01/29/19 15:00 BP 133/58 01/29/19 15:00 Pulse Ox 98 01/29/19 15:00 Intake & Output 01/28/19 01/29/19 01/29/19 18:59 06:59 18:59 Intake Total 1089.095 720.182 551.813 Output Total 896 939 1412 Balance 154.095 115.182 -2603.187 Weight 120.8 kg 120.8 kg Intake: IV 273 276 355 0.9 Normal Saline ( 33 36 24 pressure bag) at 3mL/hr Piperacillin-Tazobactam 3 100 .375 gm In Sodium Chloride 0.9% 100 ml @ 25 mls/hr IVPB Q12HR [place] Rx #:[id number] Sodium Chloride 0.9% 1, 240 240 180 000 ml @ 20 mls/hr IV . Q24H [place] Rx#:[id number] Intake, IV Titration 206.095 218.182 196.813 Amount Furosemide 100 mg In 81 100 94.5 Sodium Chloride 0.9% 90 ml @ 10 MG/HR 10 mls/hr IV .Q10H [place] Rx#: [id number] Insulin Regular 100 unit 44.761 37.849 2.104 In Sodium Chloride 0.9% 100 ml @ Per Protocol IV .Q0M [place] Rx#:[id number] Propofol 1,000 mg In 80.334 80.333 100.209 Empty Bag 1 bag @ Titrate IV .Q0M [place] Rx#: [id number] Tube Feeding 490 196 Other 120 30 Output: Urine 435 605 655 Stool 500 500 Hemodialysis 1999 Other: Voiding Method Indwelling Catheter Indwelling Catheter Indwelling Catheter # Voids 1 ABP, PAP, CO, CI - Last Documented Arterial Blood Pressure 118/47 - Exam Patient sedated this morning. Full neuro exam unable to obtain HEENT head normocephalic and atraumatic Neck is supple no JVD no goiter no lymphadenopathy Chest exam reveals diminished lung sounds, a few scattered rhonchi no wheezing Cardiac exam reveals regular heart sounds S1 and S2 no gallops no murmurs Abdomen is obese, soft nontender no organomegaly with normal bowel sounds Extremity right BKA. Dressing is clean dry and intact Neuro no gross focal neurological deficit. Patient sedated on mechanical ventilation - Labs CBC & Chem 7: 01/29/19 04:05 01/29/19 04:05 Labs: Abnormal Lab Results - Last 24 Hours (Table) 01/28/19 01/28/19 01/28/19 Range/Units 17:50 19:11 19:56 RBC (4.30-5.90) m/uL Hgb (13.0-17.5) gm/dL Hct (39.0-53.0) % Neutrophils # (1.3-7.7) k/uL Lymphocytes # (1.0-4.8) k/uL Chloride (98-107) mmol/L Carbon Dioxide (22-30) mmol/L BUN (9-20) mg/dL Creatinine (0.66-1.25) mg/dL Glucose (74-99) mg/dL POC Glucose (mg/dL) 180 H 168 H 153 H (75-99) mg/dL Calcium (8.4-10.2) mg/dL Total Protein (6.3-8.2) g/dL Albumin (3.5-5.0) g/dL 01/28/19 01/28/19 01/29/19 Range/Units 21:56 23:54 02:02 RBC (4.30-5.90) m/uL Hgb (13.0-17.5) gm/dL Hct (39.0-53.0) % Neutrophils # (1.3-7.7) k/uL Lymphocytes # (1.0-4.8) k/uL Chloride (98-107) mmol/L Carbon Dioxide (22-30) mmol/L BUN (9-20) mg/dL Creatinine (0.66-1.25) mg/dL Glucose (74-99) mg/dL POC Glucose (mg/dL) 197 H 178 H 191 H (75-99) mg/dL Calcium (8.4-10.2) mg/dL Total Protein (6.3-8.2) g/dL Albumin (3.5-5.0) g/dL 01/29/19 01/29/19 01/29/19 Range/Units 04:03 04:05 04:05 RBC 2.75 L (4.30-5.90) m/uL Hgb 8.1 L (13.0-17.5) gm/dL Hct 24.6 L (39.0-53.0) % Neutrophils # 8.4 H (1.3-7.7) k/uL Lymphocytes # 0.9 L (1.0-4.8) k/uL Chloride 109 H (98-107) mmol/L Carbon Dioxide 18 L (22-30) mmol/L BUN 89 H (9-20) mg/dL Creatinine 4.80 H (0.66-1.25) mg/dL Glucose 172 H (74-99) mg/dL POC Glucose (mg/dL) 182 H (75-99) mg/dL Calcium 7.4 L (8.4-10.2) mg/dL Total Protein 5.3 L (6.3-8.2) g/dL Albumin 2.3 L (3.5-5.0) g/dL 01/29/19 01/29/19 01/29/19 Range/Units 05:53 06:51 08:04 RBC (4.30-5.90) m/uL Hgb (13.0-17.5) gm/dL Hct (39.0-53.0) % Neutrophils # (1.3-7.7) k/uL Lymphocytes # (1.0-4.8) k/uL Chloride (98-107) mmol/L Carbon Dioxide (22-30) mmol/L BUN (9-20) mg/dL Creatinine (0.66-1.25) mg/dL Glucose (74-99) mg/dL POC Glucose (mg/dL) 134 H 151 H 136 H (75-99) mg/dL Calcium (8.4-10.2) mg/dL Total Protein (6.3-8.2) g/dL Albumin (3.5-5.0) g/dL 01/29/19 01/29/19 01/29/19 Range/Units 10:05 10:56 12:07 RBC (4.30-5.90) m/uL Hgb (13.0-17.5) gm/dL Hct (39.0-53.0) % Neutrophils # (1.3-7.7) k/uL Lymphocytes # (1.0-4.8) k/uL Chloride (98-107) mmol/L Carbon Dioxide (22-30) mmol/L BUN (9-20) mg/dL Creatinine (0.66-1.25) mg/dL Glucose (74-99) mg/dL POC Glucose (mg/dL) 148 H 164 H 128 H (75-99) mg/dL Calcium (8.4-10.2) mg/dL Total Protein (6.3-8.2) g/dL Albumin (3.5-5.0) g/dL 01/29/19 Range/Units 15:11 RBC (4.30-5.90) m/uL Hgb (13.0-17.5) gm/dL Hct (39.0-53.0) % Neutrophils # (1.3-7.7) k/uL Lymphocytes # (1.0-4.8) k/uL Chloride (98-107) mmol/L Carbon Dioxide (22-30) mmol/L BUN (9-20) mg/dL Creatinine (0.66-1.25) mg/dL Glucose (74-99) mg/dL POC Glucose (mg/dL) 159 H (75-99) mg/dL Calcium (8.4-10.2) mg/dL Total Protein (6.3-8.2) g/dL Albumin (3.5-5.0) g/dL Assessment and Plan Plan: #1 gangrene involving the right fifth toe with surrounding cellulitis Status post amputation of fourth and fifth toe with Dr. Bustillos. Patient is currently postop day 4. Possible discussion of below knee amputation rather than attempt at possible revascularization. Arterial Doppler completed, ALMA of the right 0.79. Status post right BKA per vascular surgery #2 sepsis present on admission as evidenced by fever, leukocytosis, and elevated lactic acid. White blood cell improving to 14.2 from 16. Lactic acid normalized, 0.7. Infectious disease is following. Patient remains on Zosyn for IV antibiotics #3 acute hypoxic and hypercapnic respiratory failure with altered mental status changes secondary to severe sepsis. Patient was transferred to the intensive care unit and placed on mechanical ventilation. Patient is sedated on propofol . Per nursing staff patient is following commands . Vent things 50 FiO2, PEEP 5. 500 tidal volume, rate 18. Critical care services are following. possible extubation today per critical care #4. Hypotension secondary to septic shock. Levophed currently off. Blood pressure has improved, systolic 130s to 150s. #5. Acute kidney injury secondary to ATN secondary to hypotension as well as vancomycin toxicity. Nephrology services are following. Ultrasound completed showing no evidence of hydronephrosis. Creatinine increasing to 4. 35 and bun 57. Per nephrology services maintain 0.9 normal saline at 50/ml, avoid nephrotoxins. Vancomycin and lisinopril have been discontinued. continue to monitor urine output closely. Status post hemodialysis per nephrology services. Patient currently maintained on Lasix drip per nephrology creatinine did trend down to 4.76. Patient to receive third round of hemodialysis today. #6. history of essential hypertension. Cardiology services following. EF 50- 55%. Per cardiology services no evidence of acute coronary syndrome at this time #7. insulin-dependent diabetes mellitus, with poor control due to noncompliance last hemoglobin A1c was 9.8 at this time will hold glipizide, Januvia and metformin, and cover was insulin to sliding scale will adjust medications as needed. Blood sugars have been in the 200s after episode of hypoglycemia. Patient currently on insulin drip for tight blood sugar control #8. underlying history of diabetic complications of peripheral neuropathy and retinopathy. #9. poor compliance with medical management, patient had extensive counseling in the last year, his A1c was down to 7.1 in June however it was up to 9.8 again recently. #10 underlying history of hyperlipidemia maintained on atorvastatin, on hold. #11. Hypoglycemia. Home meds DC'd. Tube feedings have been initiated. Hypoglycemia has resolved #12. Suspected aspiration. Orogastric tube was coiled in the patient's mouth with tube feeds running. Tube was removed and replaced. Chest x-ray completed. Overall stable findings, no significant change from prior, bilateral small pleural effusions noted, CHF exacerbation versus fluid overload state. Repeat chest x-ray today per pulmonary. No acute changes made, no change in ABG. Infectious disease is following. DVT prophylaxis heparin. GI prophylaxis Protonix Patient remains in the intensive care unit on mechanical ventilation Critical care, vascular surgery, infectious disease, cardiology and nephrology services following
[2019-01-29 17:42] LABS: Glucose,Whole Blood 166 mg/dL (75-99)
[2019-01-29] MEDS: FUROSEMIDE 10 MG/ML 10 ML VIAL IV SCH ×2 (17:43→23:27)
[2019-01-29 18:11] LABS: Glucose,Whole Blood 170 mg/dL (75-99)
[2019-01-29] MEDS: INSULIN REGULAR 100 UNIT in SODIUM CHLORIDE 0.9% 100 ML IV SCH (18:13)
--- NOTE | 2019-01-29 18:22 | XR ---
EXAMINATION TYPE: XR chest 1V DATE OF EXAM: 01/29/2019 COMPARISON: NONE HISTORY: ET tube placement TECHNIQUE: Single frontal view of the chest is obtained. FINDINGS: ET tube is approximately 3 cm above the cheryl. NG tube central line noted. Diffuse inters titial pattern with bilateral consolidation. No sizable pneumothorax IMPRESSION: Correlate for CHF. Underlying pneumonia not excluded. Findings are similar to prior exam
[2019-01-29 19:14] LABS: Glucose,Whole Blood 164 mg/dL (75-99)
[2019-01-29 20:06] LABS: Glucose,Whole Blood 161 mg/dL (75-99)
[2019-01-29] MEDS: LATANOPROST 0.005% OPHTH DROPS 2.5 ML BTL LEFT EYE SCH (20:39)
[2019-01-29 21:07] LABS: Glucose,Whole Blood 131 mg/dL (75-99)
[2019-01-29 22:04] LABS: Glucose,Whole Blood 142 mg/dL (75-99)
[2019-01-29 23:02] LABS: Glucose,Whole Blood 142 mg/dL (75-99)
[2019-01-30 00:14] LABS: Glucose,Whole Blood 139 mg/dL (75-99)
[2019-01-30] MEDS: PROPOFOL 1,000 MG in EMPTY BAG 1 BAG IV SCH ×5 (00:18→19:48)
[2019-01-30 01:14] LABS: Glucose,Whole Blood 147 mg/dL (75-99)
[2019-01-30 02:10] LABS: Glucose,Whole Blood 134 mg/dL (75-99)
[2019-01-30 03:12] LABS: Glucose,Whole Blood 144 mg/dL (75-99)
[2019-01-30 04:07] LABS: Glucose,Whole Blood 146 mg/dL (75-99)
[2019-01-30 04:56] LABS: Basophils # (A) 0.1 k/uL (0-0.2); Basophils % (A) 1 %; Eosinophils # (A) 0.3 k/uL (0-0.7); Eosinophils % (A) 3 %; HCT 23.2 % (39.0-53.0); HGB 7.8 gm/dL (13.0-17.5); Lymphocytes # (A) 1.1 k/uL (1.0-4.8); Lymphocytes % (A) 10 %; MCH 29.6 pg (25.0-35.0); MCHC 33.6 g/dL (31.0-37.0); Monocytes # (A) 0.5 k/uL (0-1.0); Monocytes % (A) 5 %; Neutrophils # (A) 9.2 k/uL (1.3-7.7); Neutrophils % (A) 80 %; Platelet Count 189 k/uL (150-450); RBC 2.64 m/uL (4.30-5.90); WBC 11.4 k/uL (3.8-10.6)
[2019-01-30 05:08] LABS: Glucose,Whole Blood 163 mg/dL (75-99)
[2019-01-30 05:15] LABS: Albumin 2.4 g/dL (3.5-5.0); Calcium 7.6 mg/dL (8.4-10.2); Total Bilirubin 0.3 mg/dL (0.2-1.3); Total Protein 5.5 g/dL (6.3-8.2)
[2019-01-30 06:23] LABS: Glucose,Whole Blood 157 mg/dL (75-99)
[2019-01-30] MEDS: SODIUM CHLORIDE 0.9% 1,000 ML IV SCH ×2 (07:50→15:59)
[2019-01-30] MEDS: NOREPINEPHRINE 4 MG in SODIUM CHLORIDE 0.9% 250 ML IV SCH ×2 (07:50→16:03)
--- NOTE | 2019-01-30 08:26 | XR ---
EXAMINATION TYPE: XR chest 1V DATE OF EXAM: 01/30/2019 COMPARISON: 01/29/2019 HISTORY: Shortness of breath FINDINGS: There are bilateral pleural effusions with cardiomegaly and bibasilar infiltrate. There is a diffuse interstitial pattern. ET and NG tubes stable. Dialysis catheter stable. No pneumothorax. IMPRESSION: 1. Diffuse pleural-parenchymal changes most suggestive of CHF stable. Underlying pneumonia not exclud ed.
--- NOTE | 2019-01-30 08:30 | FL ---
EXAMINATION TYPE: FL guided central line placemt HISTORY: Fluoroscopy time Impression: 1. Fluoroscopy support provided to the referring physician of 51 seconds.
--- NOTE | 2019-01-30 08:42 | P.PN ---
Subjective Progress Note Date: 01/30/19 Patient seen and examined. No issues overnight per nursing. Tolerating dialysis through right chest wall tunneled dialysis catheter Objective - Vital Signs Vital signs: Vital Signs Temp 99.2 F 01/30/19 04:00 Pulse 71 01/30/19 07:00 Resp 18 01/30/19 07:00 BP 133/58 01/29/19 22:00 Pulse Ox 98 01/30/19 07:00 Intake & Output 01/29/19 01/30/19 01/30/19 18:59 06:59 18:59 Intake Total 606.221 896.508 23 Output Total 3720 885 0 Balance -3113.779 11.508 23 Weight 120.8 kg 119 kg Intake: IV 401 273 23 0.9 Normal Saline ( 30 33 3 pressure bag) at 3mL/hr Piperacillin-Tazobactam 3 100 100 .375 gm In Sodium Chloride 0.9% 100 ml @ 25 mls/hr IVPB Q12HR [place] Rx #:[id number] Sodium Chloride 0.9% 1, 220 140 20 000 ml @ 20 mls/hr IV . Q24H [place] Rx#:[id number] Intake, IV Titration 205.221 226.508 Amount Furosemide 100 mg In 94.5 Sodium Chloride 0.9% 90 ml @ 10 MG/HR 10 mls/hr IV .Q10H [place] Rx#: [id number] Insulin Regular 100 unit 10.512 7.339 In Sodium Chloride 0.9% 100 ml @ Per Protocol IV .Q0M [place] Rx#:[id number] Propofol 1,000 mg In 100.209 219.169 Empty Bag 1 bag @ Titrate IV .Q0M [place] Rx#: [id number] Tube Feeding 337 Other 60 Output: Urine 720 485 0 Stool 1000 400 Hemodialysis 2000 Other: Voiding Method Indwelling Catheter Indwelling Catheter ABP, PAP, CO, CI - Last Documented Arterial Blood Pressure 124/47 - Exam No acute distress, still intubated, sedated at this time Heart regular Lungs coarse but clear otherwise Abdomen soft, rotund Left femoral HD catheter romvoed, area clean, dry and intact Extremities right lower extremity amputation site rigid dressing in place - Labs CBC & Chem 7: 01/30/19 04:30 01/30/19 04:30 Labs: Abnormal Lab Results - Last 24 Hours (Table) 01/29/19 01/29/19 01/29/19 Range/Units 10:05 10:56 12:07 WBC (3.8-10.6) k/uL RBC (4.30-5.90) m/uL Hgb (13.0-17.5) gm/dL Hct (39.0-53.0) % Neutrophils # (1.3-7.7) k/uL Sodium (137-145) mmol/L Carbon Dioxide (22-30) mmol/L BUN (9-20) mg/dL Creatinine (0.66-1.25) mg/dL Glucose (74-99) mg/dL POC Glucose (mg/dL) 148 H 164 H 128 H (75-99) mg/dL Calcium (8.4-10.2) mg/dL Total Protein (6.3-8.2) g/dL Albumin (3.5-5.0) g/dL 01/29/19 01/29/19 01/29/19 Range/Units 15:11 17:41 18:10 WBC (3.8-10.6) k/uL RBC (4.30-5.90) m/uL Hgb (13.0-17.5) gm/dL Hct (39.0-53.0) % Neutrophils # (1.3-7.7) k/uL Sodium (137-145) mmol/L Carbon Dioxide (22-30) mmol/L BUN (9-20) mg/dL Creatinine (0.66-1.25) mg/dL Glucose (74-99) mg/dL POC Glucose (mg/dL) 159 H 166 H 170 H (75-99) mg/dL Calcium (8.4-10.2) mg/dL Total Protein (6.3-8.2) g/dL Albumin (3.5-5.0) g/dL 01/29/19 01/29/19 01/29/19 Range/Units 19:12 20:04 21:05 WBC (3.8-10.6) k/uL RBC (4.30-5.90) m/uL Hgb (13.0-17.5) gm/dL Hct (39.0-53.0) % Neutrophils # (1.3-7.7) k/uL Sodium (137-145) mmol/L Carbon Dioxide (22-30) mmol/L BUN (9-20) mg/dL Creatinine (0.66-1.25) mg/dL Glucose (74-99) mg/dL POC Glucose (mg/dL) 164 H 161 H 131 H (75-99) mg/dL Calcium (8.4-10.2) mg/dL Total Protein (6.3-8.2) g/dL Albumin (3.5-5.0) g/dL 01/29/19 01/29/19 01/30/19 Range/Units 22:03 23:01 00:12 WBC (3.8-10.6) k/uL RBC (4.30-5.90) m/uL Hgb (13.0-17.5) gm/dL Hct (39.0-53.0) % Neutrophils # (1.3-7.7) k/uL Sodium (137-145) mmol/L Carbon Dioxide (22-30) mmol/L BUN (9-20) mg/dL Creatinine (0.66-1.25) mg/dL Glucose (74-99) mg/dL POC Glucose (mg/dL) 142 H 142 H 139 H (75-99) mg/dL Calcium (8.4-10.2) mg/dL Total Protein (6.3-8.2) g/dL Albumin (3.5-5.0) g/dL 01/30/19 01/30/19 01/30/19 Range/Units 01:13 02:08 03:10 WBC (3.8-10.6) k/uL RBC (4.30-5.90) m/uL Hgb (13.0-17.5) gm/dL Hct (39.0-53.0) % Neutrophils # (1.3-7.7) k/uL Sodium (137-145) mmol/L Carbon Dioxide (22-30) mmol/L BUN (9-20) mg/dL Creatinine (0.66-1.25) mg/dL Glucose (74-99) mg/dL POC Glucose (mg/dL) 147 H 134 H 144 H (75-99) mg/dL Calcium (8.4-10.2) mg/dL Total Protein (6.3-8.2) g/dL Albumin (3.5-5.0) g/dL 01/30/19 01/30/19 01/30/19 Range/Units 04:06 04:30 04:30 WBC 11.4 H (3.8-10.6) k/uL RBC 2.64 L (4.30-5.90) m/uL Hgb 7.8 L (13.0-17.5) gm/dL Hct 23.2 L (39.0-53.0) % Neutrophils # 9.2 H (1.3-7.7) k/uL Sodium 135 L (137-145) mmol/L Carbon Dioxide 19 L (22-30) mmol/L BUN 60 H (9-20) mg/dL Creatinine 3.81 H (0.66-1.25) mg/dL Glucose 152 H (74-99) mg/dL POC Glucose (mg/dL) 146 H (75-99) mg/dL Calcium 7.6 L (8.4-10.2) mg/dL Total Protein 5.5 L (6.3-8.2) g/dL Albumin 2.4 L (3.5-5.0) g/dL 01/30/19 01/30/19 Range/Units 05:07 06:21 WBC (3.8-10.6) k/uL RBC (4.30-5.90) m/uL Hgb (13.0-17.5) gm/dL Hct (39.0-53.0) % Neutrophils # (1.3-7.7) k/uL Sodium (137-145) mmol/L Carbon Dioxide (22-30) mmol/L BUN (9-20) mg/dL Creatinine (0.66-1.25) mg/dL Glucose (74-99) mg/dL POC Glucose (mg/dL) 163 H 157 H (75-99) mg/dL Calcium (8.4-10.2) mg/dL Total Protein (6.3-8.2) g/dL Albumin (3.5-5.0) g/dL Assessment and Plan Assessment: Status post right below knee amputation Acute kidney failure on HD, s/p tunnelled dialysis catheter placement uncontrolled type 2 diabetes previous amputation for infected gangrene toe on the left foot hyperlipidemia hypertension previous CT Plan: Continue supportive care per ICU.? weaning trial/sedation vacation for extubation? No further intervention planned per vascular surgery. Change BKA dressing QOD
[2019-01-30] MEDS: GABAPENTIN 100 MG CAP PO SCH ×3 (09:19→21:27)
[2019-01-30] MEDS: HEPARIN SODIUM,PORCINE 5,000 UNIT/ML 1 ML VIAL SQ SCH ×2 (09:19→16:02)
[2019-01-30] MEDS: PIPERACILLIN-TAZOBACTAM 3.375 GM in SODIUM CHLORIDE 0.9% 100 ML IVPB SCH ×2 (09:20→21:28)
[2019-01-30] MEDS: DORZOLAMIDE HCL 2% DROPS 10 ML BTL LEFT EYE SCH ×3 (09:20→21:15)
[2019-01-30] MEDS: BRIMONIDINE TARTRATE 0.2% DROPS 5 ML BTL LEFT EYE SCH ×3 (09:21→21:14)
[2019-01-30] MEDS: TIMOLOL 0.5% OPHTH DROPS 5 ML BTL LEFT EYE SCH ×2 (09:21→21:13)
[2019-01-30] MEDS: CHLORHEXIDINE GLUCONATE 15 ML CUP MUCOUS MEM SCH ×2 (09:21→21:27)
--- NOTE | 2019-01-30 10:54 | P.PN ---
Subjective Progress Note Date: 01/30/19 Refugio Saenz, is a 68-year-old male who presented to [facility] emergency room with pain in the right foot, he was evaluated in emergency room and had blackish discoloration of the right fifth toe with surrounding erythema and tenderness, patient was started on IV antibiotics Zosyn, vancomycin, and clindamycin, he was admitted to medical floor vascular surgery consultation was requested for possible amputation due to evidence of gangrene. Infectious disease consultation was requested. Patient has a known history of insulin-dependent diabetes mellitus, his glucose level was well controlled up until September of this year his A1c in June was 7.1 and in September was 7.3 however apparently patient stopped taking his insulin and his medications and his A1c was up to 9.8 in November, he has a known history of right foot ulcer he was admitted to the hospital with right foot cellulitis and ulcer in 2014 and he was followed at the wound care clinic in 2015 however he was doing well up until recently. Patient also has a known history of hypertension, hyperlipidemia, he denies any history of coronary artery disease or congestive heart failure, he had an echocardiogram done in 2014 at that time he had normal left ventricular function was normal ejection fraction, no significant valvular disease and no pulmonary hypertension. 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 On 01/17/2019 patient's alert and oriented 3. Patient had fourth and fifth toe amputation with Dr. Bustillos this morning. Patient having some low blood pressure will give 500 mL bolus. Patient denies chest pain or shortness of breath. Patient denies nausea vomiting or diarrhea. Patient is having some increased pain to foot area pain medications ordered 01/18/2019, patient seen eval examined while covering for Dr. Granger, waking up this morning slightly slow to respond but not confused, breathing comfortably denies any chest pain labs reviewed today patient has been evaluated by Dr. Bassett, white cell count is coming down to 19,000, lactic acid level is normalized, patient has been on broad-spectrum antibiotics with vascular surgery on board 01/19/2019, patient seen and evaluated examined in the ICU intubated on full ventilator support, patient had gradual loss of consciousness has been more lethargic arterial blood gases were checked shows hypercapnic and hypoxic respiratory failure was intubated in the ICU, patient has been placed on propof ol he was volume depleted depleted aggressive fluid resuscitation were performed, is still requiring levophed intermittently, patient was also noted to be hypoglycemic 7030 insulin and other oral hypoglycemic agents were discontinued, ultrasound of the abdomen has been performed which is reviewed no obvious hydronephrosis seen, patient has decreased urine output along with rising BUN/creatinine appeared to be acute tubular necrosis, patient also requiring intermittent bolus of D10 for hypoglycemia, wounds has been evaluated by vascular surgery noted recommendation, patient has very poor venous access, will put a central line in, critical care time 45 minutes during procedure, due to altered mental status CT of the head was performed which was negative On 01/20/2019 patient remains in the intensive care unit on mechanical ventilation. Levophed has been on hold blood pressures has sustained. Creatinine has increased to 4.17 and bun 56. Nephrology services are following. Per nursing staff patient does follow commands during sedation holiday ABGs have improved. Discussed case with vascular surgeon nurse practitioner possible BKA discussion. White blood cell decreasing to 16.0. Critical care services are following. Patient remains on Zosyn for IV antibiotics. Infectious disease following 01/21/2019 patient remains on mechanical ventilation on in the intensive care unit. Patient remains sedated, on propofol. However per nursing staff patient does follow commands during sedation holiday. Patient is on 50% FiO2, 5 PEEP, tidal volume 500. Levophed off since 01/20/20. Blood pressure remains in the 130's-150's systolic. Creatinine 4.35 from 4.17 and BUN 57 from 56, Calcium 7.0, phosphorus 5.9 Nephrology is following. Orogastric tube replaced this morning. Per nursing staff OG tube was coiled in patient's mouth with tube feeds running. Chest x-ray repeated, no significant change from previous. ABG improving, still metabolic acidosis. WBC of 14.1 down from 16. Afebrile. Infectious disease is following patient is maintained on Zosyn. Will send C. diff sample due to new onset diarrhea for 1 day. Hyperglycemia noted (glucose 200's). Will discuss tube feed formula with dietary. If no changes can be made will adjust sliding scale. On 01/22/2019 patient remains sedated on mechanical ventilation in the intensive care unit. Per nursing staff patient is to have a BKA today with Dr. Bustillos. Patient remains off pressors, blood pressure has been stable. Chest x-ray repeated this morning, per pulmonary. No significant change in ABGs. Creatinine continues to increase, 4.84 today BUN 60, patient is still making adequate urine output nephrology is following. Tube feeds on hold, for pending OR. WBC 14.2, temperature overnight 100F. Please is following patient is maintained on Zosyn. C. diff sample was negative. 01/23/2019 patient remains sedated and on mechanical ventilation in the ICU. He underwent right BKA yesterday, 01/22/[address] Bustillos. Estimated blood loss 150 mL. He had a temp of 100 last night. Urine output is about 50 mL per hour. Creatinine has gone down from 4.84-4.82. Nephrology is following closely. No plans for hemodialysis yet. Patient's blood sugars are starting to become more elevated. They're in the 180s to 200s. Tube feedings are being adjusted. White count 13.7 hemoglobin 10.3 On 01/24/2019 patient remains sedated on mechanical ventilation in the intensive care unit. Decreased urine output throughout night. Creatinine 5.15 and bun 68. Patient remains on insulin drip. WBC 14.1. Patient having low-grade temps. Patient remains closely followed by critical care consulting providers On 01/25/2019 patient was seen and examined in the intensive care unit, he is currently alert and maintained on BiPAP trial, he is making more urine output, and no hemodialysis is scheduled at this time, creatinine improved, down from 5.15-4.44 white blood count down to 11.3 patient is followed by nephrology, infectious disease, pulmonary and critical care and vascular surgery On 01/26/2019 patient was seen and examined in the ICU, he is intubated sedated maintained on mechanical ventilation, creatinine went up today and he was started on hemodialysis, Zosyn has today, at this time will resume Zosyn, we have asked infectious disease to see patient and reassess antibiotics, otherwise patient is stable there is no fever or chills, he continues to have a rectal tube and having large amount of diarrhea, C. diff was checked and was negative will repeat test today. On 01/27/2019 patient remains on mechanical ventilation in the intensive care unit. Creatinine trending down today 4.76 and bun 77. Patient remains on Lasix drip per nephrology services. White count 11.8. She remains on IV Zosyn. Sedation holiday performed per nursing staff and critical care recommendation. On 01/28/2019 patient remains in the intensive care unit on mechanical ventilation. Sedation currently turned off. Patient is awake and following commands possible extubation today per critical care. Patient also received hemodialysis this will be the patient's third round of hemodialysis. Creatinine is trending down 4.44. Patient remains on Lasix drip. On 01/29/2019 patient remains in ICU intubated sedated maintained on mechanical ventilation, he had to CPAP trials yesterday, he is still maintained on hemodialysis, creatinine is elevated at 4.8 and BUN 89. On 01/30/2019 patient remains on mechanical ventilation in the intensive care unit. Patient is off sedation at this time and following commands. CPAP trial in place. Possible extubation today. Patient currently getting hemodialysis. Permanent hemodialysis catheter placed yesterday. Creatinine is trending down. Patient taken off insulin drip. Objective - Vital Signs Vital signs: Vital Signs Temp 99.6 F 01/30/19 10:45 Pulse 86 01/30/19 10:45 Resp 30 H 01/30/19 10:45 BP 150/61 01/30/19 10:45 Pulse Ox 99 01/30/19 10:00 Intake & Output 01/29/19 01/30/19 01/30/19 18:59 06:59 18:59 Intake Total 606.221 896.508 194.678 Output Total 3720 885 2060 Balance -3113.779 11.508 -1865.322 Weight 120.8 kg 119 kg Intake: IV 401 273 92 0.9 Normal Saline ( 30 33 12 pressure bag) at 3mL/hr Piperacillin-Tazobactam 3 100 100 .375 gm In Sodium Chloride 0.9% 100 ml @ 25 mls/hr IVPB Q12HR [place] Rx #:[id number] Sodium Chloride 0.9% 1, 220 140 80 000 ml @ 20 mls/hr IV . Q24H [place] Rx#:[id number] Intake, IV Titration 205.221 226.508 102.678 Amount Furosemide 100 mg In 94.5 Sodium Chloride 0.9% 90 ml @ 10 MG/HR 10 mls/hr IV .Q10H [place] Rx#: [id number] Insulin Regular 100 unit 10.512 7.339 In Sodium Chloride 0.9% 100 ml @ Per Protocol IV .Q0M [place] Rx#:[id number] Propofol 1,000 mg In 100.209 219.169 102.678 Empty Bag 1 bag @ Titrate IV .Q0M [place] Rx#: [id number] Tube Feeding 337 Other 60 Output: Urine 720 485 60 Stool 1000 400 Hemodialysis 1999 1999 Other: Voiding Method Indwelling Catheter Indwelling Catheter Indwelling Catheter ABP, PAP, CO, CI - Last Documented Arterial Blood Pressure 153/60 - Exam Patient sedated this morning. Full neuro exam unable to obtain HEENT head normocephalic and atraumatic Neck is supple no JVD no goiter no lymphadenopathy Chest exam reveals diminished lung sounds, a few scattered rhonchi no wheezing Cardiac exam reveals regular heart sounds S1 and S2 no gallops no murmurs Abdomen is obese, soft nontender no organomegaly with normal bowel sounds Extremity right BKA. Dressing is clean dry and intact Neuro no gross focal neurological deficit. Patient sedated on mechanical ventilation - Labs CBC & Chem 7: 01/30/19 04:30 01/30/19 04:30 Labs: Abnormal Lab Results - Last 24 Hours (Table) 01/29/19 01/29/19 01/29/19 Range/Units 10:56 12:07 15:11 WBC (3.8-10.6) k/uL RBC (4.30-5.90) m/uL Hgb (13.0-17.5) gm/dL Hct (39.0-53.0) % Neutrophils # (1.3-7.7) k/uL Sodium (137-145) mmol/L Carbon Dioxide (22-30) mmol/L BUN (9-20) mg/dL Creatinine (0.66-1.25) mg/dL Glucose (74-99) mg/dL POC Glucose (mg/dL) 164 H 128 H 159 H (75-99) mg/dL Calcium (8.4-10.2) mg/dL Total Protein (6.3-8.2) g/dL Albumin (3.5-5.0) g/dL 01/29/19 01/29/19 01/29/19 Range/Units 17:41 18:10 19:12 WBC (3.8-10.6) k/uL RBC (4.30-5.90) m/uL Hgb (13.0-17.5) gm/dL Hct (39.0-53.0) % Neutrophils # (1.3-7.7) k/uL Sodium (137-145) mmol/L Carbon Dioxide (22-30) mmol/L BUN (9-20) mg/dL Creatinine (0.66-1.25) mg/dL Glucose (74-99) mg/dL POC Glucose (mg/dL) 166 H 170 H 164 H (75-99) mg/dL Calcium (8.4-10.2) mg/dL Total Protein (6.3-8.2) g/dL Albumin (3.5-5.0) g/dL 01/29/19 01/29/19 01/29/19 Range/Units 20:04 21:05 22:03 WBC (3.8-10.6) k/uL RBC (4.30-5.90) m/uL Hgb (13.0-17.5) gm/dL Hct (39.0-53.0) % Neutrophils # (1.3-7.7) k/uL Sodium (137-145) mmol/L Carbon Dioxide (22-30) mmol/L BUN (9-20) mg/dL Creatinine (0.66-1.25) mg/dL Glucose (74-99) mg/dL POC Glucose (mg/dL) 161 H 131 H 142 H (75-99) mg/dL Calcium (8.4-10.2) mg/dL Total Protein (6.3-8.2) g/dL Albumin (3.5-5.0) g/dL 01/29/19 01/30/19 01/30/19 Range/Units 23:01 00:12 01:13 WBC (3.8-10.6) k/uL RBC (4.30-5.90) m/uL Hgb (13.0-17.5) gm/dL Hct (39.0-53.0) % Neutrophils # (1.3-7.7) k/uL Sodium (137-145) mmol/L Carbon Dioxide (22-30) mmol/L BUN (9-20) mg/dL Creatinine (0.66-1.25) mg/dL Glucose (74-99) mg/dL POC Glucose (mg/dL) 142 H 139 H 147 H (75-99) mg/dL Calcium (8.4-10.2) mg/dL Total Protein (6.3-8.2) g/dL Albumin (3.5-5.0) g/dL 01/30/19 01/30/19 01/30/19 Range/Units 02:08 03:10 04:06 WBC (3.8-10.6) k/uL RBC (4.30-5.90) m/uL Hgb (13.0-17.5) gm/dL Hct (39.0-53.0) % Neutrophils # (1.3-7.7) k/uL Sodium (137-145) mmol/L Carbon Dioxide (22-30) mmol/L BUN (9-20) mg/dL Creatinine (0.66-1.25) mg/dL Glucose (74-99) mg/dL POC Glucose (mg/dL) 134 H 144 H 146 H (75-99) mg/dL Calcium (8.4-10.2) mg/dL Total Protein (6.3-8.2) g/dL Albumin (3.5-5.0) g/dL 01/30/19 01/30/19 01/30/19 Range/Units 04:30 04:30 05:07 WBC 11.4 H (3.8-10.6) k/uL RBC 2.64 L (4.30-5.90) m/uL Hgb 7.8 L (13.0-17.5) gm/dL Hct 23.2 L (39.0-53.0) % Neutrophils # 9.2 H (1.3-7.7) k/uL Sodium 135 L (137-145) mmol/L Carbon Dioxide 19 L (22-30) mmol/L BUN 60 H (9-20) mg/dL Creatinine 3.81 H (0.66-1.25) mg/dL Glucose 152 H (74-99) mg/dL POC Glucose (mg/dL) 163 H (75-99) mg/dL Calcium 7.6 L (8.4-10.2) mg/dL Total Protein 5.5 L (6.3-8.2) g/dL Albumin 2.4 L (3.5-5.0) g/dL 01/30/19 Range/Units 06:21 WBC (3.8-10.6) k/uL RBC (4.30-5.90) m/uL Hgb (13.0-17.5) gm/dL Hct (39.0-53.0) % Neutrophils # (1.3-7.7) k/uL Sodium (137-145) mmol/L Carbon Dioxide (22-30) mmol/L BUN (9-20) mg/dL Creatinine (0.66-1.25) mg/dL Glucose (74-99) mg/dL POC Glucose (mg/dL) 157 H (75-99) mg/dL Calcium (8.4-10.2) mg/dL Total Protein (6.3-8.2) g/dL Albumin (3.5-5.0) g/dL Assessment and Plan Assessment: #1 gangrene involving the right fifth toe with surrounding cellulitis Status post amputation of fourth and fifth toe with Dr. Bustillos. Patient is currently postop day 4. Possible discussion of below knee amputation rather than attempt at possible revascularization. Arterial Doppler completed, ALMA of the right 0.79. Status post right BKA per vascular surgery #2 sepsis present on admission as evidenced by fever, leukocytosis, and elevated lactic acid. White blood cell improving to 14.2 from 16. Lactic acid normalized, 0.7. Infectious disease is following. Patient remains on Zosyn for IV antibiotics #3 acute hypoxic and hypercapnic respiratory failure with altered mental status changes secondary to severe sepsis. Patient was transferred to the intensive care unit and placed on mechanical ventilation. Patient is sedated on propofol . Per nursing staff patient is following commands . Vent things 50 FiO2, PEEP 5. 500 tidal volume, rate 18. Critical care services are following. possible extubation today per critical care #4. Hypotension secondary to septic shock. Levophed currently off. Blood pressure has improved, systolic 130s to 150s. #5. Acute kidney injury secondary to ATN secondary to hypotension as well as vancomycin toxicity. Nephrology services are following. Ultrasound completed showing no evidence of hydronephrosis. Creatinine increasing to 4. 35 and bun 57. Per nephrology services maintain 0.9 normal saline at 50/ml, avoid nephrotoxins. Vancomycin and lisinopril have been discontinued. continue to monitor urine output closely. Status post hemodialysis per nephrology services. Patient currently maintained on Lasix drip per nephrology creatinine did trend down to 4.76. She currently receiving hemodialysis. Permanent hemodialysis catheter placed on 01/29/2019 #6. history of essential hypertension. Cardiology services following. EF 50- 55%. Per cardiology services no evidence of acute coronary syndrome at this time #7. insulin-dependent diabetes mellitus, with poor control due to noncompliance last hemoglobin A1c was 9.8 at this time will hold glipizide, Januvia and metformin, and cover was insulin to sliding scale will adjust medications as needed. Blood sugars have been in the 200s after episode of hypoglycemia. Patient currently on insulin drip for tight blood sugar control. Insulin drip has been DC'd. Patient started on sliding scale coverage #8. underlying history of diabetic complications of peripheral neuropathy and retinopathy. #9. poor compliance with medical management, patient had extensive counseling in the last year, his A1c was down to 7.1 in June however it was up to 9.8 again recently. #10 underlying history of hyperlipidemia maintained on atorvastatin, on hold. #11. Hypoglycemia. Home meds DC'd. Tube feedings have been initiated. Hypoglycemia has resolved #12. Suspected aspiration. Orogastric tube was coiled in the patient's mouth with tube feeds running. Tube was removed and replaced. Chest x-ray completed. Overall stable findings, no significant change from prior, bilateral small pleural effusions noted, CHF exacerbation versus fluid overload state. Repeat chest x-ray today per pulmonary. No acute changes made, no change in ABG. Infectious disease is following. DVT prophylaxis heparin. GI prophylaxis Protonix Patient remains in the intensive care unit on mechanical ventilation Critical care, vascular surgery, infectious disease, cardiology and nephrology services following I performed an examination of the patient and discussed their management with the Nurse Practitioner. I have reviewed the Nurse Practitioner's notes and agree with the documented findings and plan of care
[2019-01-30 11:05] LABS: ABG Base Excess -1.2 mmol/L; ABG HCO3 23 mmol/L (21-25); ABG Oxygen Saturation 98.9 % (94-97); ABG PCO2 35 mmHg (35-45); ABG PH 7.43 (7.35-7.45); ABG PO2 137 mmHg (83-108); ABG TCO2 24 mmol/L (19-24)
[2019-01-30 11:09] LABS: Allen Test Performed? no
[2019-01-30 12:09] LABS: Glucose,Whole Blood 237 mg/dL (75-99)
[2019-01-30] MEDS: PANTOPRAZOLE 40 MG/10 ML VIAL IV SCH (12:11)
[2019-01-30] MEDS: FUROSEMIDE 10 MG/ML 10 ML VIAL IV SCH ×2 (12:11→16:01)
[2019-01-30] MEDS: FLUoxetine HCL 20 MG CAP PO SCH (12:11)
[2019-01-30] MEDS: INSULIN ASPART (NovoLOG) 100 UNIT/ML VIAL SQ SCH ×2 (12:11→18:25)
--- NOTE | 2019-01-30 16:13 | P.PN ---
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, poor compliance, dyslipidemia, dehydration 01/30/2019, patient seen eval examined during the rounds labs reviewed medications reviewed care plan discussed with the staff and primary service at length patient has a CPAP pressure support trial today unable to tolerate for longer period time just lasted for 15 minutes started having desaturation and was extremely short of breath, switch back to assist control mode, patient however has a successful dialysis about 2 L of fluid has been removed patient will get another dialysis trial tomorrow, labs reviewed radiographic studies reviewed, x-ray still showing fluid overload changes no significant change has been notedAmmann patient also underwent dialysis catheter placement, we'll continue CPAP pressure support trial as the fluid has been removed with the dialysis, if unsuccessful then consideration of trach and PEG will be entertained early next week, his sugars are better controlled his been switched from insulin drip to sliding scale insulin with twice a day dose 01/28/2019 Pt seen and examined care plan reviewed during AM rounds had trouble d dialysis due to catheter clogging, renal fx slightly better, cxr not much changed, ABG post cpap/ps suggestive of mild resp acidosis and predominantly Metabolic acidosis, feel that pt would require at least 2-3 more cycles of dialysis before successfully take him of of Vent, would recommend daily dialysis 01/27/2019, patient seen eval examined during the rounds patient is due for dialysis today, remains on full vent setting but however undergoing CPAP pressure support trial with 5 and 10 tolerating very well, per support will be decreased to 5, patient is due for another dialysis later on today, tomorrow will do the CPAP and pressure support and check a blood gas afterwards if does well then possibly extubate, chest x-ray continue show bilateral basilar atelectasis but overall they remained stable labs reviewed medications reviewed care plan discussed with the respiratory therapist and hourly sales staff at length critical care time spent 35 minutes 01/26/2019, patient seen eval examined during the rounds labs reviewed medications reviewed, patient has been on Lasix drip 10 mg an hour also on propofol drip 10 mcg, patient had a hemodialysis done here earlier today with intent to remove the fluid, patient will get another hemodialysis tomorrow as well, has placed patient on CPAP of 5 pressure support of 10 is spontaneously breathing the rate is about 16-18 and tidal volume 350-400 range, extensive amount of secretions are present still, patient is not ready not ready for extubation but however they're indeed ready for weaning would recommend continued to do hemodialysis on a daily basis for at least 3 or 4 days so that volume overload can be dealt with, right cell count is 12,000 and hemoglobin and hematocrit remained stable arterial blood gas reviewed still have significant metabolic acidosis, renal function continued decline progressively BUN and creatinine up to 84 and 5.2, remains on Zosyn, chest x-ray as above noted to have worsening changes due to fluid overload, culture not growing anything, insulin drip is on sugars better controlled now 01/24/2019, patient seen eval reexamined during the rounds critical care time 35 minutes, patient has a weaning attempt with CPAP and pressure support but was not completed as patient is due for hemodialysis catheter placement in right femoral vein the renal service thinking about hemodialysis tomorrow breathing remains stable patient remains on assist control rate of 18 FiO2 of 50% 5 of PEEP, and renal function continued to deteriorate gradually being output slowly declining 01/23/2019, patient seen eval examined during the rounds labs reviewed medications reviewed care plan discussed with the staff at length and had a short weaning attempt and a sedation holiday with which he tolerated for short p eriod of time then becomes tachypneic put back on respirator fit. We'll patient has been diuresing fairly well has been negative for the first time, urine output of 30-40 mL an hour. BUN/creatinine remains stable, patient is postop day #1 of the BKA, chest x-ray from today reviewed findings are most suggestive of fluid overload less likely to be pneumonia, the ET tube and central line and NG tube was stable, white cell count is 13,000 arterial blood gases remained stable, BUN/creatinine gradually going up is 60 and 4.8 to, sugar is running on the higher side last check sugar was over 260 patient is being started on insulin drip 01/21/2019, patient seen and evaluated examined during the rounds labs reviewed medications reviewed, patient the remains on sedation with propofol mildly sedated he does wake up follow simple commands and munira -1-2, he remains on IV fluids gently being rehydrated 50 mL an hour to feed is being given this morning patient noted to have a tube coiling in the mouth as He is to have pulled out late morning hours, the need to be has been placed position has been confirmed chest x-ray continued to show for evidence of fluid overload and this should edema along with possible infiltrate, he remains on assist control rate of 18 and tidal volume of 505 of PEEP and oxygen is 50% he is +1.2 L since morning, care plan discussed with nephrology as well as the vascular surgery, as his BUN and creatinine continued to go up creatinine is 5.1 in spite of good adequate urine output, patient continue on broad-spectrum antibiotic when setting remains stable respiratory secretions are still thick tenacious and appears to be improving slowly, blood cultures and sputum culture has been negative, need to make eyes and nose on the negative side as well as would like to see been function improving before consideration of weaning that anticipate will take another 24-48 hours 01/20/2019, patient seen eval examined during the rounds and labs reviewed medications reviewed critical care time spent 35 minutes, patient remains on assist control rate 18 and tidal volume of 500 along with PEEP of 5, patient is sedated with propofol drip but doesn't respond to simple stimuli, patient has been making good amount of urine levo fed is not require S patient is hemodynamically stable urine output has improved to 50-60 mL an hour post Lasix which is advised by nephrology service urine output has improved, patient has been tolerating tube feed well given that volume overload situation due to hypotension and was given fluid for resuscitation patient gently being diuresed, she he remains on broad-spectrum antibiotic sliding scale insulin labs reviewed medications reviewed care plan discussed with the staff and 2 brothers at bedside at length, chest x-ray from today reviewed bilateral atelectasis and fluid overload is present overall suggestive of more of his CHF and pneumonia, white cell count is stable, arterial blood gases improved, BUN/creatinine continue to go up 56 and 4.17, sugars have been stabilized 01/19/2019, patient seen and evaluated examined in the ICU intubated on full ventilator support, patient had gradual loss of consciousness has been more le thargic arterial blood gases were checked shows hypercapnic and hypoxic respiratory failure was intubated in the ICU, patient has been placed on propofol he was volume depleted depleted aggressive fluid resuscitation were performed, is still require levo fed intermittently, patient was also noted to be hypoglycemic 7030 insulin and other oral hypoglycemic agents were discontinued, ultrasound of the abdomen has been performed which is reviewed no obvious hydronephrosis seen, patient has decreased urine output along with rising BUN/creatinine appeared to be acute tubular necrosis, patient also r equiring intermittent bolus of D10 for hypoglycemia, wounds has been evaluated by vascular surgery noted recommendation, patient has very poor venous access, will put a central line in, critical care time 45 minutes during procedure, due to altered mental status CT of the head was performed which was negative 01/18/2019, patient seen eval examined while covering for Dr. Granger, waking up this morning slightly slow to respond but not confused, breathing comfortably denies any chest pain labs reviewed today patient has been evaluated by Dr. Bassett, white cell count is coming down to 19,000, lactic acid level is normalized, patient has been on broad-spectrum antibiotics with vascular surgery on board Objective - Vital Signs Vital signs: Vital Signs Temp 100.1 F H 01/30/19 12:00 Pulse 75 01/30/19 15:00 Resp 18 01/30/19 15:00 BP 150/61 01/30/19 10:45 Pulse Ox 99 01/30/19 15:00 Intake & Output 01/29/19 01/30/19 01/30/19 18:59 06:59 18:59 Intake Total 606.221 896.508 731.000 Output Total 3720 885 2125 Balance -3113.779 11.508 -1394.000 Weight 120.8 kg 119 kg 119 kg Intake: IV 401 273 207 0.9 Normal Saline ( 30 33 27 pressure bag) at 3mL/hr Piperacillin-Tazobactam 3 100 100 .375 gm In Sodium Chloride 0.9% 100 ml @ 25 mls/hr IVPB Q12HR [facility] Rx #:[id number] Sodium Chloride 0.9% 1, 220 140 180 000 ml @ 20 mls/hr IV . Q24H [facility] Rx#:[id number] Intake, IV Titration 205.221 226.508 200.000 Amount Furosemide 100 mg In 94.5 Sodium Chloride 0.9% 90 ml @ 10 MG/HR 10 mls/hr IV .Q10H [place] Rx#: [id number] Insulin Regular 100 unit 10.512 7.339 In Sodium Chloride 0.9% 100 ml @ Per Protocol IV .Q0M [facility] Rx#:[id number] Propofol 1,000 mg In 100.209 219.169 200.000 Empty Bag 1 bag @ Titrate IV .Q0M [place] Rx#: [id number] Tube Feeding 337 294 Other 60 30 Output: Urine 720 485 125 Stool 1000 400 Hemodialysis 1999 1999 Other: Voiding Method Indwelling Catheter Indwelling Catheter Indwelling Catheter ABP, PAP, CO, CI - Last Documented Arterial Blood Pressure 123/63 - Exam Intubated on full vent support on propofol getting IV fluids normal saline due t o hypotension one more fluid bolus being given In general patient is alert and oriented 3 while propofol was stopped s HEENT head normocephalic and atraumatic Neck is supple no JVD no goiter no lymphadenopathy Chest exam reveals a few scattered rhonchi no wheezing Cardiac exam reveals regular heart sounds S1 and S2 no gallops no murmurs Abdomen is soft nontender no organomegaly with normal bowel sounds Extremity exam status post right BKA Neuro no gross focal neurological deficit, patient has anisocoria - Labs CBC & Chem 7: 01/30/19 04:30 01/30/19 04:30 Labs: Abnormal Lab Results - Last 24 Hours (Table) 01/29/19 01/29/19 01/29/19 Range/Units 17:41 18:10 19:12 WBC (3.8-10.6) k/uL RBC (4.30-5.90) m/uL Hgb (13.0-17.5) gm/dL Hct (39.0-53.0) % Neutrophils # (1.3-7.7) k/uL ABG pO2 (83-108) mmHg ABG O2 Saturation (94-97) % Sodium (137-145) mmol/L Carbon Dioxide (22-30) mmol/L BUN (9-20) mg/dL Creatinine (0.66-1.25) mg/dL Glucose (74-99) mg/dL POC Glucose (mg/dL) 166 H 170 H 164 H (75-99) mg/dL Calcium (8.4-10.2) mg/dL Phosphorus (2.5-4.5) mg/dL Total Protein (6.3-8.2) g/dL Albumin (3.5-5.0) g/dL 01/29/19 01/29/1901/29/19 Range/Units 20:04 21:05 22:03 WBC (3.8-10.6) k/uL RBC (4.30-5.90) m/uL Hgb (13.0-17.5) gm/dL Hct (39.0-53.0) % Neutrophils # (1.3-7.7) k/uL ABG pO2 (83-108) mmHg ABG O2 Saturation (94-97) % Sodium (137-145) mmol/L Carbon Dioxide (22-30) mmol/L BUN (9-20) mg/dL Creatinine (0.66-1.25) mg/dL Glucose (74-99) mg/dL POC Glucose (mg/dL) 161 H 131 H 142 H (75-99) mg/dL Calcium (8.4-10.2) mg/dL Phosphorus (2.5-4.5) mg/dL Total Protein (6.3-8.2) g/dL Albumin (3.5-5.0) g/dL 01/29/19 01/30/19 01/30/19 Range/Units 23:01 00:12 01:13 WBC (3.8-10.6) k/uL RBC (4.30-5.90) m/uL Hgb (13.0-17.5) gm/dL Hct (39.0-53.0) % Neutrophils # (1.3-7.7) k/uL ABG pO2 (83-108) mmHg ABG O2 Saturation (94-97) % Sodium (137-145) mmol/L Carbon Dioxide (22-30) mmol/L BUN (9-20) mg/dL Creatinine (0.66-1.25) mg/dL Glucose (74-99) mg/dL POC Glucose (mg/dL) 142 H 139 H 147 H (75-99) mg/dL Calcium (8.4-10.2) mg/dL Phosphorus (2.5-4.5) mg/dL Total Protein (6.3-8.2) g/dL Albumin (3.5-5.0) g/dL 01/30/19 01/30/19 01/30/19 Range/Units 02:08 03:10 04:00 WBC (3.8-10.6) k/uL RBC (4.30-5.90) m/uL Hgb (13.0-17.5) gm/dL Hct (39.0-53.0) % Neutrophils # (1.3-7.7) k/uL ABG pO2 (83-108) mmHg ABG O2 Saturation (94-97) % Sodium (137-145) mmol/L Carbon Dioxide (22-30) mmol/L BUN (9-20) mg/dL Creatinine (0.66-1.25) mg/dL Glucose (74-99) mg/dL POC Glucose (mg/dL) 134 H 144 H (75-99) mg/dL Calcium (8.4-10.2) mg/dL Phosphorus 8.6 H (2.5-4.5) mg/dL Total Protein (6.3-8.2) g/dL Albumin (3.5-5.0) g/dL 01/30/19 01/30/19 01/30/19 Range/Units 04:06 04:30 04:30 WBC 11.4 H (3.8-10.6) k/uL RBC 2.64 L (4.30-5.90) m/uL Hgb 7.8 L (13.0-17.5) gm/dL Hct 23.2 L (39.0-53.0) % Neutrophils # 9.2 H (1.3-7.7) k/uL ABG pO2 (83-108) mmHg ABG O2 Saturation (94-97) % Sodium 135 L (137-145) mmol/L Carbon Dioxide 19 L (22-30) mmol/L BUN 60 H (9-20) mg/dL Creatinine 3.81 H (0.66-1.25) mg/dL Glucose 152 H (74-99) mg/dL POC Glucose (mg/dL) 146 H (75-99) mg/dL Calcium 7.6 L (8.4-10.2) mg/dL Phosphorus (2.5-4.5) mg/dL Total Protein 5.5 L (6.3-8.2) g/dL Albumin 2.4 L (3.5-5.0) g/dL 01/30/19 01/30/19 01/30/19 Range/Units 05:07 06:21 10:59 WBC (3.8-10.6) k/uL RBC (4.30-5.90) m/uL Hgb (13.0-17.5) gm/dL Hct (39.0-53.0) % Neutrophils # (1.3-7.7) k/uL ABG pO2 137 H (83-108) mmHg ABG O2 Saturation 98.9 H (94-97) % Sodium (137-145) mmol/L Carbon Dioxide (22-30) mmol/L BUN (9-20) mg/dL Creatinine (0.66-1.25) mg/dL Glucose (74-99) mg/dL POC Glucose (mg/dL) 163 H 157 H (75-99) mg/dL Calcium (8.4-10.2) mg/dL Phosphorus (2.5-4.5) mg/dL Total Protein (6.3-8.2) g/dL Albumin (3.5-5.0) g/dL 01/30/19 Range/Units 12:07 WBC (3.8-10.6) k/uL RBC (4.30-5.90) m/uL Hgb (13.0-17.5) gm/dL Hct (39.0-53.0) % Neutrophils # (1.3-7.7) k/uL ABG pO2 (83-108) mmHg ABG O2 Saturation (94-97) % Sodium (137-145) mmol/L Carbon Dioxide (22-30) mmol/L BUN (9-20) mg/dL Creatinine (0.66-1.25) mg/dL Glucose (74-99) mg/dL POC Glucose (mg/dL) 237 H (75-99) mg/dL Calcium (8.4-10.2) mg/dL Phosphorus (2.5-4.5) mg/dL Total Protein (6.3-8.2) g/dL Albumin (3.5-5.0) g/dL Assessment and Plan Assessment: Altered mental status Hypoxic and hypercapnic respiratory failure Acute on chronic renal failure Bilateral atelectasis and possible aspiration pneumonia Fluid overload and acute interstitial edema Severe hypoglycemia 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 Sepsis and septic shock Insulin-dependent diabetes mellitus poorly controlled, being started on insulin drip Hypertension hypertensive cardiovascular disease Dyslipidemia Plan: We'll continue the weaning process patient on CPAP 5 pressure support 5 for 1 hour 3 times a day as tolerated with a sedation holiday, if unsuccessful then consideration will be given to trach and PEG early next week Continue dialysis once patient is significantly negative and tolerated dialysis well and consider extubation which will likely be in next 48-72 hours once fluid overload is compromised Continue vent support ventilated been adjusted Insulin drip, sugars are better controlled with that Monitor renal functions closely once patient is negative and renal function impr oving we will initiate the weaning process Patient observation monitored off of propofol does follow simple commands Will observe and monitor anisocoria Renal consultation and recommendations reviewed Continue gentle diuresis Broad-spectrum antibiotics Critical care time 35 minutes excluding procedure
--- NOTE | 2019-01-30 16:20 | PN ---
PROGRESS NOTE Patient is seen for followup for acute kidney injury. He has been receiving daily dialysis. Patient was not able to tolerate weaning today as well. He had another 2 L of ultrafiltration today. At this point there is no significant urine output. Lasix drip was discontinued yesterday. Currently patient is maintained on 60 mg IV q.8 hours. Current urine output is ranging from 40 to 15 mL/hour. PHYSICAL EXAMINATION: On examination today, blood pressure was 125/43, heart rate 71 per minute. Patient is afebrile. EXAMINATION OF THE HEART: S1 and S2. EXAMINATION OF LUNGS: Bilateral breath sounds are heard. ABDOMEN: Distended, soft, non-tender. Examination of lower extremities shows edema 2+ along with scrotal edema. Patient has right BKA. LPN exam cannot be performed. LABS: Hemoglobin 7.8. Sodium 135, potassium 4.0, chloride 105. CO2 is 19. BUN 60, creatinine 3.8, calcium 7.6. ASSESSMENT: 1. Acute kidney injury, acute tubular necrosis, currently hemodialysis-dependent. Patient has had an IJ PermCath. His catheter is working well. He was dialyzed today. We will plan to dialyze him again tomorrow in view of volume overload and to help with the weaning off the vent. Chest x-ray continues to show changes of CHF. 2. Status post right below-knee amputation for lower extremity ischemia and wet gangrene, status post previous amputation of the toes. 3. Hypoxic respiratory failure. Currently patient remains on the vent. 4. Anemia with no active bleeding. I will add Aranesp, as patient continues to be in renal failure. 5. Volume overload. Continue with IV push Lasix. We will plan to dialyze again tomorrow. PLAN: Repeat hemodialysis in a.m. and add Aranesp. Continue with IV Lasix. MMODL / IJN: [id number] /
[2019-01-30] MEDS: DARBEPOETIN ALFA 60 MCG/0.3 ML SYRINGE SQ SCH (17:26)
[2019-01-30 17:30] LABS: Glucose,Whole Blood 216 mg/dL (75-99)
[2019-01-30 23:57] LABS: Glucose,Whole Blood 205 mg/dL (75-99)
[2019-01-31] MEDS: HEPARIN SODIUM,PORCINE 5,000 UNIT/ML 1 ML VIAL SQ SCH ×3 (00:11→15:20)
[2019-01-31] MEDS: FUROSEMIDE 10 MG/ML 10 ML VIAL IV SCH ×3 (00:15→15:18)
[2019-01-31] MEDS: INSULIN ASPART (NovoLOG) 100 UNIT/ML VIAL SQ SCH ×6 (00:17→20:18)
[2019-01-31] MEDS: SODIUM CHLORIDE 0.9% 1,000 ML IV SCH ×3 (00:20→20:19)
[2019-01-31] MEDS: PROPOFOL 1,000 MG in EMPTY BAG 1 BAG IV SCH ×4 (01:16→20:42)
[2019-01-31] MEDS: NOREPINEPHRINE 4 MG in SODIUM CHLORIDE 0.9% 250 ML IV SCH ×2 (03:07→14:39)
[2019-01-31 04:55] LABS: ABG Base Excess -1.7 mmol/L; ABG HCO3 23 mmol/L (21-25); ABG Oxygen Saturation 98.1 % (94-97); ABG PCO2 34 mmHg (35-45); ABG PH 7.43 (7.35-7.45); ABG PO2 106 mmHg (83-108); ABG TCO2 24 mmol/L (19-24); Allen Test Performed? Yes
[2019-01-31 05:36] LABS: Basophils % (A) 1 %; Eosinophils # (A) 0.3 k/uL (0-0.7); Eosinophils % (A) 3 %; HCT 23.5 % (39.0-53.0); HGB 7.9 gm/dL (13.0-17.5); Lymphocytes % (A) 11 %; MCH 29.6 pg (25.0-35.0); MCHC 33.8 g/dL (31.0-37.0); MCV 87.7 fL (80.0-100.0); Mean Platelet Volume 10.4; Monocytes # (A) 0.5 k/uL (0-1.0); Monocytes % (A) 6 %; Neutrophils # (A) 7.1 k/uL (1.3-7.7); Neutrophils % (A) 78 %; Platelet Count 191 k/uL (150-450); RBC 2.68 m/uL (4.30-5.90); RDW 13.1 % (11.5-15.5); WBC 9.1 k/uL (3.8-10.6)
[2019-01-31 05:49] LABS: Albumin 2.5 g/dL (3.5-5.0); Calcium 7.7 mg/dL (8.4-10.2); Potassium 3.7 mmol/L (3.5-5.1); Total Bilirubin 0.3 mg/dL (0.2-1.3); Total Protein 5.5 g/dL (6.3-8.2)
[2019-01-31 05:56] LABS: Glucose,Whole Blood 229 mg/dL (75-99)
[2019-01-31] MEDS: PANTOPRAZOLE 40 MG/10 ML VIAL IV SCH (08:04)
[2019-01-31] MEDS: CHLORHEXIDINE GLUCONATE 15 ML CUP MUCOUS MEM SCH ×2 (08:07→20:20)
[2019-01-31] MEDS: GABAPENTIN 100 MG CAP PO SCH ×3 (08:07→21:09)
[2019-01-31] MEDS: FLUoxetine HCL 20 MG CAP PO SCH (08:07)
[2019-01-31] MEDS: BRIMONIDINE TARTRATE 0.2% DROPS 5 ML BTL LEFT EYE SCH ×3 (08:08→21:09)
[2019-01-31] MEDS: PIPERACILLIN-TAZOBACTAM 3.375 GM in SODIUM CHLORIDE 0.9% 100 ML IVPB SCH ×2 (08:11→20:42)
[2019-01-31] MEDS: TIMOLOL 0.5% OPHTH DROPS 5 ML BTL LEFT EYE SCH ×2 (08:20→20:41)
[2019-01-31] MEDS: DORZOLAMIDE HCL 2% DROPS 10 ML BTL LEFT EYE SCH ×3 (08:25→21:09)
[2019-01-31 08:26] LABS: Glucose,Whole Blood 206 mg/dL (75-99)
--- NOTE | 2019-01-31 09:13 | XR ---
EXAMINATION TYPE: XR chest 1V portable DATE OF EXAM: 01/31/2019 COMPARISON: Prior chest x-ray 01/30/2019 HISTORY: Shortness of breath, intubated TECHNIQUE: Single frontal view of the chest is obtained. FINDINGS: Endotracheal tube, NG tube are overlying appropriate position, distal tip of the NG tube n ot included on exam. Right jugular central venous dialysis catheter with the distal overlying the rig ht atrium. There is no evident pneumothorax. Bibasilar increased density persists. The heart is likel y enlarged. Central vascular congestion is noted, there are overlying cardiac leads. IMPRESSION: Correlate for volume overload, congestive heart failure, follow-up recommended.
--- NOTE | 2019-01-31 10:20 | P.PN ---
Subjective Progress Note Date: 01/31/19 Refugio Saenz, is a 68-year-old male who presented to [facility] emergency room with pain in the right foot, he was evaluated in emergency room and had blackish discoloration of the right fifth toe with surrounding erythema and tenderness, patient was started on IV antibiotics Zosyn, vancomycin, and clindamycin, he was admitted to medical floor vascular surgery consultation was requested for possible amputation due to evidence of gangrene. Infectious disease consultation was requested. Patient has a known history of insulin-dependent diabetes mellitus, his glucose level was well controlled up until September of this year his A1c in June was 7.1 and in September was 7.3 however apparently patient stopped taking his insulin and his medications and his A1c was up to 9.8 in November, he has a known history of right foot ulcer he was admitted to the hospital with right foot cellulitis and ulcer in 2014 and he was followed at the wound care clinic in 2015 however he was doing well up until recently. Patient also has a known history of hypertension, hyperlipidemia, he denies any history of coronary artery disease or congestive heart failure, he had an echocardiogram done in 2014 at that time he had normal left ventricular function was normal ejection fraction, no significant valvular disease and no pulmonary hypertension. 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 On 01/17/2019 patient's alert and oriented 3. Patient had fourth and fifth toe amputation with Dr. Bustillos this morning. Patient having some low blood pressure will give 500 mL bolus. Patient denies chest pain or shortness of breath. Patient denies nausea vomiting or diarrhea. Patient is having some increased pain to foot area pain medications ordered 01/18/2019, patient seen eval examined while covering for Dr. Granger, waking up this morning slightly slow to respond but not confused, breathing comfortably denies any chest pain labs reviewed today patient has been evaluated by Dr. Bassett, white cell count is coming down to 19,000, lactic acid level is normalized, patient has been on broad-spectrum antibiotics with vascular surgery on board 01/19/2019, patient seen and evaluated examined in the ICU intubated on full ventilator support, patient had gradual loss of consciousness has been more lethargic arterial blood gases were checked shows hypercapnic and hypoxic respiratory failure was intubated in the ICU, patient has been placed on propof ol he was volume depleted depleted aggressive fluid resuscitation were performed, is still requiring levophed intermittently, patient was also noted to be hypoglycemic 7030 insulin and other oral hypoglycemic agents were discontinued, ultrasound of the abdomen has been performed which is reviewed no obvious hydronephrosis seen, patient has decreased urine output along with rising BUN/creatinine appeared to be acute tubular necrosis, patient also requiring intermittent bolus of D10 for hypoglycemia, wounds has been evaluated by vascular surgery noted recommendation, patient has very poor venous access, will put a central line in, critical care time 45 minutes during procedure, due to altered mental status CT of the head was performed which was negative On 01/20/2019 patient remains in the intensive care unit on mechanical ventilation. Levophed has been on hold blood pressures has sustained. Creatinine has increased to 4.17 and bun 56. Nephrology services are following. Per nursing staff patient does follow commands during sedation holiday ABGs have improved. Discussed case with vascular surgeon nurse practitioner possible BKA discussion. White blood cell decreasing to 16.0. Critical care services are following. Patient remains on Zosyn for IV antibiotics. Infectious disease following 01/21/2019 patient remains on mechanical ventilation on in the intensive care unit. Patient remains sedated, on propofol. However per nursing staff patient does follow commands during sedation holiday. Patient is on 50% FiO2, 5 PEEP, tidal volume 500. Levophed off since 01/20/20. Blood pressure remains in the 130's-150's systolic. Creatinine 4.35 from 4.17 and BUN 57 from 56, Calcium 7.0, phosphorus 5.9 Nephrology is following. Orogastric tube replaced this morning. Per nursing staff OG tube was coiled in patient's mouth with tube feeds running. Chest x-ray repeated, no significant change from previous. ABG improving, still metabolic acidosis. WBC of 14.1 down from 16. Afebrile. Infectious disease is following patient is maintained on Zosyn. Will send C. diff sample due to new onset diarrhea for 1 day. Hyperglycemia noted (glucose 200's). Will discuss tube feed formula with dietary. If no changes can be made will adjust sliding scale. On 01/22/2019 patient remains sedated on mechanical ventilation in the intensive care unit. Per nursing staff patient is to have a BKA today with Dr. Bustillos. Patient remains off pressors, blood pressure has been stable. Chest x-ray repeated this morning, per pulmonary. No significant change in ABGs. Creatinine continues to increase, 4.84 today BUN 60, patient is still making adequate urine output nephrology is following. Tube feeds on hold, for pending OR. WBC 14.2, temperature overnight 100F. Please is following patient is maintained on Zosyn. C. diff sample was negative. 01/23/2019 patient remains sedated and on mechanical ventilation in the ICU. He underwent right BKA yesterday, 01/22/[address] Bustillos. Estimated blood loss 150 mL. He had a temp of 100 last night. Urine output is about 50 mL per hour. Creatinine has gone down from 4.84-4.82. Nephrology is following closely. No plans for hemodialysis yet. Patient's blood sugars are starting to become more elevated. They're in the 180s to 200s. Tube feedings are being adjusted. White count 13.7 hemoglobin 10.3 On 01/24/2019 patient remains sedated on mechanical ventilation in the intensive care unit. Decreased urine output throughout night. Creatinine 5.15 and bun 68. Patient remains on insulin drip. WBC 14.1. Patient having low-grade temps. Patient remains closely followed by critical care consulting providers On 01/25/2019 patient was seen and examined in the intensive care unit, he is currently alert and maintained on BiPAP trial, he is making more urine output, and no hemodialysis is scheduled at this time, creatinine improved, down from 5.15-4.44 white blood count down to 11.3 patient is followed by nephrology, infectious disease, pulmonary and critical care and vascular surgery On 01/26/2019 patient was seen and examined in the ICU, he is intubated sedated maintained on mechanical ventilation, creatinine went up today and he was started on hemodialysis, Zosyn has today, at this time will resume Zosyn, we have asked infectious disease to see patient and reassess antibiotics, otherwise patient is stable there is no fever or chills, he continues to have a rectal tube and having large amount of diarrhea, C. diff was checked and was negative will repeat test today. On 01/27/2019 patient remains on mechanical ventilation in the intensive care unit. Creatinine trending down today 4.76 and bun 77. Patient remains on Lasix drip per nephrology services. White count 11.8. She remains on IV Zosyn. Sedation holiday performed per nursing staff and critical care recommendation. On 01/28/2019 patient remains in the intensive care unit on mechanical ventilation. Sedation currently turned off. Patient is awake and following commands possible extubation today per critical care. Patient also received hemodialysis this will be the patient's third round of hemodialysis. Creatinine is trending down 4.44. Patient remains on Lasix drip. On 01/29/2019 patient remains in ICU intubated sedated maintained on mechanical ventilation, he had to CPAP trials yesterday, he is still maintained on hemodialysis, creatinine is elevated at 4.8 and BUN 89. On 01/30/2019 patient remains on mechanical ventilation in the intensive care unit. Patient is off sedation at this time and following commands. CPAP trial in place. Possible extubation today. Patient currently getting hemodialysis. Permanent hemodialysis catheter placed yesterday. Creatinine is trending down. Patient taken off insulin drip. on 01/31/2019 patient remains in intensive care unit on mechanical ventilation. Discussed case with critical care doctor Dr. Dominguez Yesterday. Patient unable to wean. we'll continue to monitor patient over the weekend and consider possible trach next week. Patient also received hemodialysis yesterday. Objective - Vital Signs Vital signs: Vital Signs Temp 99.2 F 01/31/19 08:00 Pulse 68 01/31/19 09:00 Resp 18 01/31/19 09:00 BP 150/61 01/30/19 10:45 Pulse Ox 99 01/31/19 09:00 Intake & Output 01/30/19 01/31/19 01/31/19 18:59 06:59 18:59 Intake Total 178.811 8091.285 154 Output Total 2125 718 235 Balance -1141.000 338.285 -81 Weight 119 kg 114.1 kg Intake: IV 276 376 74 0.9 Normal Saline ( 36 36 9 pressure bag) at 3mL/hr Piperacillin-Tazobactam 3 100 25 .375 gm In Sodium Chloride 0.9% 100 ml @ 25 mls/hr IVPB Q12HR [place] Rx #:[id number] Sodium Chloride 0.9% 1, 240 240 40 000 ml @ 20 mls/hr IV . Q24H [place] Rx#:[id number] Intake, IV Titration 200.000 280.285 Amount Propofol 1,000 mg In 200.000 280.285 Empty Bag 1 bag @ Titrate IV .Q0M [facility] Rx#: [id number] Tube Feeding 418 250 50 Other 90 150 30 Output: Urine 125 718 235 Hemodialysis 1999 Other: Voiding Method Indwelling Catheter Indwelling Catheter ABP, PAP, CO, CI - Last Documented Arterial Blood Pressure 149/45 - Exam Patient sedated this morning. Full neuro exam unable to obtain HEENT head normocephalic and atraumatic Neck is supple no JVD no goiter no lymphadenopathy Chest exam reveals diminished lung sounds, a few scattered rhonchi no wheezing Cardiac exam reveals regular heart sounds S1 and S2 no gallops no murmurs Abdomen is obese, soft nontender no organomegaly with normal bowel sounds Extremity right BKA. Dressing is clean dry and intact Neuro no gross focal neurological deficit. Patient sedated on mechanical ventilation - Labs CBC & Chem 7: 01/31/19 04:54 01/31/19 04:54 Labs: Abnormal Lab Results - Last 24 Hours (Table) 01/30/19 01/30/19 01/30/19 Range/Units 04:00 10:59 12:07 RBC (4.30-5.90) m/uL Hgb (13.0-17.5) gm/dL Hct (39.0-53.0) % ABG pCO2 (35-45) mmHg ABG pO2 137 H (83-108) mmHg ABG O2 Saturation 98.9 H (94-97) % Sodium (137-145) mmol/L Carbon Dioxide (22-30) mmol/L BUN (9-20) mg/dL Creatinine (0.66-1.25) mg/dL Glucose (74-99) mg/dL POC Glucose (mg/dL) 237 H (75-99) mg/dL Calcium (8.4-10.2) mg/dL Phosphorus 8.6 H (2.5-4.5) mg/dL Total Protein (6.3-8.2) g/dL Albumin (3.5-5.0) g/dL 01/30/19 01/30/19 01/31/19 Range/Units 17:29 23:54 04:51 RBC (4.30-5.90) m/uL Hgb (13.0-17.5) gm/dL Hct (39.0-53.0) % ABG pCO2 34 L (35-45) mmHg ABG pO2 (83-108) mmHg ABG O2 Saturation 98.1 H (94-97) % Sodium (137-145) mmol/L Carbon Dioxide (22-30) mmol/L BUN (9-20) mg/dL Creatinine (0.66-1.25) mg/dL Glucose (74-99) mg/dL POC Glucose (mg/dL) 216 H 205 H (75-99) mg/dL Calcium (8.4-10.2) mg/dL Phosphorus (2.5-4.5) mg/dL Total Protein (6.3-8.2) g/dL Albumin (3.5-5.0) g/dL 01/31/19 01/31/19 01/31/19 Range/Units 04:54 04:54 05:55 RBC 2.68 L (4.30-5.90) m/uL Hgb 7.9 L (13.0-17.5) gm/dL Hct 23.5 L (39.0-53.0) % ABG pCO2 (35-45) mmHg ABG pO2 (83-108) mmHg ABG O2 Saturation (94-97) % Sodium 134 L (137-145) mmol/L Carbon Dioxide 21 L (22-30) mmol/L BUN 54 H (9-20) mg/dL Creatinine 3.42 H (0.66-1.25) mg/dL Glucose 222 H (74-99) mg/dL POC Glucose (mg/dL) 229 H (75-99) mg/dL Calcium 7.7 L (8.4-10.2) mg/dL Phosphorus (2.5-4.5) mg/dL Total Protein 5.5 L (6.3-8.2) g/dL Albumin 2.5 L (3.5-5.0) g/dL 01/31/19 Range/Units 08:24 RBC (4.30-5.90) m/uL Hgb (13.0-17.5) gm/dL Hct (39.0-53.0) % ABG pCO2 (35-45) mmHg ABG pO2 (83-108) mmHg ABG O2 Saturation (94-97) % Sodium (137-145) mmol/L Carbon Dioxide (22-30) mmol/L BUN (9-20) mg/dL Creatinine (0.66-1.25) mg/dL Glucose (74-99) mg/dL POC Glucose (mg/dL) 206 H (75-99) mg/dL Calcium (8.4-10.2) mg/dL Phosphorus (2.5-4.5) mg/dL Total Protein (6.3-8.2) g/dL Albumin (3.5-5.0) g/dL Assessment and Plan Assessment: #1 gangrene involving the right fifth toe with surrounding cellulitis Status post amputation of fourth and fifth toe with Dr. Bustillos. Patient is currently postop day 4. Possible discussion of below knee amputation rather than attempt at possible revascularization. Arterial Doppler completed, ALMA of the right 0.79. Status post right BKA per vascular surgery #2 sepsis present on admission as evidenced by fever, leukocytosis, and elevated lactic acid. White blood cell improving to 14.2 from 16. Lactic acid normalized, 0.7. Infectious disease is following. Patient remains on Zosyn for IV antibiotics #3 acute hypoxic and hypercapnic respiratory failure with altered mental status changes secondary to severe sepsis. Patient was transferred to the intensive care unit and placed on mechanical ventilation. Patient is sedated on propofol . Per nursing staff patient is following commands . Vent things 50 FiO2, PEEP 5. 500 tidal volume, rate 18. Critical care services are following. continue weaning trials per critical care #4. Hypotension secondary to septic shock. Levophed currently off. Blood pressure has improved, systolic 130s to 150s. #5. Acute kidney injury secondary to ATN secondary to hypotension as well as vancomycin toxicity. Nephrology services are following. Ultrasound completed showing no evidence of hydronephrosis. Creatinine increasing to 4. 35 and bun 57. Per nephrology services maintain 0.9 normal saline at 50/ml, avoid nephrotoxins. Vancomycin and lisinopril have been discontinued. continue to monitor urine output closely. Status post hemodialysis per nephrology services. Patient currently maintained on Lasix drip per nephrology creatinine did trend down to 4.76. She currently receiving hemodialysis. Permanent hemodialysis catheter placed on 01/29/2019 #6. history of essential hypertension. Cardiology services following. EF 50- 55%. Per cardiology services no evidence of acute coronary syndrome at this time #7. insulin-dependent diabetes mellitus, with poor control due to noncompliance last hemoglobin A1c was 9.8 at this time will hold glipizide, Januvia and metformin, and cover was insulin to sliding scale will adjust medications as needed. Blood sugars have been in the 200s after episode of hypoglycemia. Patient currently on insulin drip for tight blood sugar control. Insulin drip has been DC'd. Patient started on sliding scale coverage #8. underlying history of diabetic complications of peripheral neuropathy and retinopathy. #9. poor compliance with medical management, patient had extensive counseling in the last year, his A1c was down to 7.1 in June however it was up to 9.8 again recently. #10 underlying history of hyperlipidemia maintained on atorvastatin, on hold. #11. Hypoglycemia. Home meds DC'd. Tube feedings have been initiated. Hypoglycemia has resolved #12. Suspected aspiration. Orogastric tube was coiled in the patient's mouth with tube feeds running. Tube was removed and replaced. Chest x-ray completed. Overall stable findings, no significant change from prior, bilateral small pleural effusions noted, CHF exacerbation versus fluid overload state. Repeat chest x-ray today per pulmonary. No acute changes made, no change in ABG. Infectious disease is following. DVT prophylaxis heparin. GI prophylaxis Protonix Patient remains in the intensive care unit on mechanical ventilation Critical care, vascular surgery, infectious disease, cardiology and nephrology services following I performed an examination of the patient and discussed their management with the Nurse Practitioner. I have reviewed the Nurse Practitioner's notes and agree with the documented findings and plan of care
--- NOTE | 2019-01-31 11:56 | P.PN ---
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, poor compliance, dyslipidemia, dehydration 01/31/2019, protocol has been discontinued patient is still somnolent but does respond to physical stimuli patient will be placed on CPAP and pressure support once a relatively more awake will continue the weaning trials as tolerated patient is not due for dialysis today the x-ray reviewed labs reviewed as, chest x-ray continued to show evidence of fluid overload right-sided dialysis catheter is stable, hemoglobin stable at 7.9, the biopsy in normal limit, arterial blood gases shows resolution of severe metabolic acidosis, BUN/creatinine improved to 54 and 3.42, sugar is slightly elevated patient has been getting insulin sliding scale and as per protocol 01/30/2019, patient seen eval examined during the rounds labs reviewed medications reviewed care plan discussed with the staff and primary service at length patient has a CPAP pressure support trial today unable to tolerate for longer period time just lasted for 15 minutes started having desaturation and was extremely short of breath, switch back to assist control mode, patient ho wever has a successful dialysis about 2 L of fluid has been removed patient will get another dialysis trial tomorrow, labs reviewed radiographic studies reviewed, x-ray still showing fluid overload changes no significant change has been notedAmmann patient also underwent dialysis catheter placement, we'll continue CPAP pressure support trial as the fluid has been removed with the dialysis, if unsuccessful then consideration of trach and PEG will be entertained early next week, his sugars are better controlled his been switched from insulin drip to sliding scale insulin with twice a day dose 01/28/2019 Pt seen and examined care plan reviewed during AM rounds had trouble d dialysis due to catheter clogging, renal fx slightly better, cxr not much changed, ABG post cpap/ps suggestive of mild resp acidosis and predominantly Metabolic acidosis, feel that pt would require at least 2-3 more cycles of dialysis before successfully take him of of Vent, would recommend daily dialysis 01/27/2019, patient seen eval examined during the rounds patient is due for dialysis today, remains on full vent setting but however undergoing CPAP pressure support trial with 5 and 10 tolerating very well, per support will be decreased to 5, patient is due for another dialysis later on today, tomorrow will do the CPAP and pressure support and check a blood gas afterwards if does well then possibly extubate, chest x-ray continue show bilateral basilar atelectasis but overall they remained stable labs reviewed medications reviewed care plan discussed with the respiratory therapist and medical staff services manager at length critical care time spent 35 minutes 01/26/2019, patient seen elizabeth examined during the rounds labs reviewed medications reviewed, patient has been on Lasix drip 10 mg an hour also on propofol drip 10 mcg, patient had a hemodialysis done here earlier today with intent to remove the fluid, patient will get another hemodialysis tomorrow as well, has placed patient on CPAP of 5 pressure support of 10 is spontaneously breathing the rate is about 16-18 and tidal volume 350-400 range, extensive amount of secretions are present still, patient is not ready not ready for extubation but however they're indeed ready for weaning would recommend continued to do hemodialysis on a daily basis for at least 3 or 4 days so that volume overload can be dealt with, right cell count is 12,000 and hemoglobin and hematocrit remained stable arterial blood gas reviewed still have significant metabolic acidosis, renal function continued decline progressively BUN and creatinine up to 84 and 5.2, remains on Zosyn, chest x-ray as above noted to have worsening changes due to fluid overload, culture not growing anything, insulin drip is on sugars better controlled now 01/24/2019, patient seen elizabeth reexamined during the rounds critical care time 35 minutes, patient has a weaning attempt with CPAP and pressure support but was not completed as patient is due for hemodialysis catheter placement in right femoral vein the renal service thinking about hemodialysis tomorrow breathing remains stable patient remains on assist control rate of 18 FiO2 of 50% 5 of PEEP, and renal function continued to deteriorate gradually being output slowly declining 01/23/2019, patient seen evlilli examined during the rounds labs reviewed medications reviewed care plan discussed with the staff at length and had a short weaning attempt and a sedation holiday with which he tolerated for short period of time then becomes tachypneic put back on respirator fit. We'll patient has been diuresing fairly well has been negative for the first time, urine output of 30-40 mL an hour. BUN/creatinine remains stable, patient is postop day #1 of the BKA, chest x-ray from today reviewed findings are most suggestive of fluid overload less likely to be pneumonia, the ET tube and central line and NG tube was stable, white cell count is 13,000 arterial blood gases remained stable, BUN/creatinine gradually going up is 60 and 4.8 to, sugar is running on the higher side last check sugar was over 260 patient is being started on insulin drip 01/21/2019, patient seen and evaluated examined during the rounds labs reviewed medications reviewed, patient the remains on sedation with propofol mildly sedated he does wake up follow simple commands and munira -1-2, he remains on IV fluids gently being rehydrated 50 mL an hour to feed is being given this morning patient noted to have a tube coiling in the mouth as He is to have pulled out late morning hours, the need to be has been placed position has been confirmed chest x-ray continued to show for evidence of fluid overload and this should edema along with possible infiltrate, he remains on assist control rate of 18 and tidal volume of 505 of PEEP and oxygen is 50% he is +1.2 L since morning, care plan discussed with nephrology as well as the vascular surgery, as his BUN and creatinine continued to go up creatinine is 5.1 in spite of good adequate urine output, patient continue on broad-spectrum antibiotic when setting remains stable respiratory secretions are still thick tenacious and appears to be improving slowly, blood cultures and sputum culture has been negative, need to make eyes and nose on the negative side as well as would like to see been function improving before consideration of weaning that anticipate will take another 24-48 hours 01/20/2019, patient seen eval examined during the rounds and labs reviewed medications reviewed critical care time spent 35 minutes, patient remains on assist control rate 18 and tidal volume of 500 along with PEEP of 5, patient is sedated with propofol drip but doesn't respond to simple stimuli, patient has been making good amount of urine levo fed is not require S patient is hemodynamically stable urine output has improved to 50-60 mL an hour post Lasix which is advised by nephrology service urine output has improved, patient has been tolerating tube feed well given that volume overload situation due to hypotension and was given fluid for resuscitation patient gently being diuresed, she he remains on broad-spectrum antibiotic sliding scale insulin labs reviewed medications reviewed care plan discussed with the staff and 2 brothers at bedside at length, chest x-ray from today reviewed bilateral atelectasis and flu id overload is present overall suggestive of more of his CHF and pneumonia, white cell count is stable, arterial blood gases improved, BUN/creatinine continue to go up 56 and 4.17, sugars have been stabilized 01/19/2019, patient seen and evaluated examined in the ICU intubated on full ventilator support, patient had gradual loss of consciousness has been more lethargic arterial blood gases were checked shows hypercapnic and hypoxic respiratory failure was intubated in the ICU, patient has been placed on propofol he was volume depleted depleted aggressive fluid resuscitation were performed, is still require levo fed intermittently, patient was also noted to be hypoglycemic 7030 insulin and other oral hypoglycemic agents were discontinued, ultrasound of the abdomen has been performed which is reviewed no obvious hydronephrosis seen, patient has decreased urine output along with rising BUN/creatinine appeared to be acute tubular necrosis, patient also requiring intermittent bolus of D10 for hypoglycemia, wounds has been evaluated by vascular surgery noted recommendation, patient has very poor venous access, will put a central line in, critical care time 45 minutes during procedure, due to altered mental status CT of the head was performed which was negative 01/18/2019, patient seen eval examined while covering for Dr. Granger, waking up this morning slightly slow to respond but not confused, breathing comfortably denies any chest pain labs reviewed today patient has been evaluated by Dr. Bassett, white cell count is coming down to 19,000, lactic acid level is normalized, patient has been on broad-spectrum antibiotics with vascular surgery on board Objective - Vital Signs Vital signs: Vital Signs Temp 99.2 F 01/31/19 08:00 Pulse 65 01/31/19 11:00 Resp 18 01/31/19 11:00 BP 150/61 01/30/19 10:45 Pulse Ox 99 01/31/19 11:00 Intake & Output 01/30/19 01/31/19 01/31/19 18:59 06:59 18:59 Intake Total 230.775 6710.285 260 Output Total 2125 718 395 Balance -1141.000 338.285 -135 Weight 119 kg 114.1 kg Intake: IV 276 376 130 0.9 Normal Saline ( 36 36 15 pressure bag) at 3mL/hr Piperacillin-Tazobactam 3 100 75 .375 gm In Sodium Chloride 0.9% 100 ml @ 25 mls/hr IVPB Q12HR [place] Rx #:[id number] Sodium Chloride 0.9% 1, 240 240 40 000 ml @ 20 mls/hr IV . Q24H [place] Rx#:[id number] Intake, IV Titration 200.000 280.285 Amount Propofol 1,000 mg In 200.000 280.285 Empty Bag 1 bag @ Titrate IV .Q0M [place] Rx#: [id number] Tube Feeding 418 250 100 Other 90 150 30 Output: Urine 125 718 395 Hemodialysis 1999 Other: Voiding Method Indwelling Catheter Indwelling Catheter ABP, PAP, CO, CI - Last Documented Arterial Blood Pressure 155/54 - Exam Intubated on full vent support on propofol getting IV fluids normal saline due to hypotension one more fluid bolus being given In general patient is alert and oriented 3 while propofol was stopped s HEENT head normocephalic and atraumatic Neck is supple no JVD no goiter no lymphadenopathy Chest exam reveals a few scattered rhonchi no wheezing Cardiac exam reveals regular heart sounds S1 and S2 no gallops no murmurs Abdomen is soft nontender no organomegaly with normal bowel sounds Extremity exam status post right BKA Neuro no gross focal neurological deficit, patient has anisocoria - Labs CBC & Chem 7: 01/31/19 04:54 01/31/19 04:54 Labs: Abnormal Lab Results - Last 24 Hours (Table) 01/30/19 01/30/19 01/30/19 Range/Units 12:07 17:29 23:54 RBC (4.30-5.90) m/uL Hgb (13.0-17.5) gm/dL Hct (39.0-53.0) % ABG pCO2 (35-45) mmHg ABG O2 Saturation (94-97) % Sodium (137-145) mmol/L Carbon Dioxide (22-30) mmol/L BUN (9-20) mg/dL Creatinine (0.66-1.25) mg/dL Glucose (74-99) mg/dL POC Glucose (mg/dL) 237 H 216 H 205 H (75-99) mg/dL Calcium (8.4-10.2) mg/dL Total Protein (6.3-8.2) g/dL Albumin (3.5-5.0) g/dL 01/31/19 01/31/19 01/31/19 Range/Units 04:51 04:54 04:54 RBC 2.68 L (4.30-5.90) m/uL Hgb 7.9 L (13.0-17.5) gm/dL Hct 23.5 L (39.0-53.0) % ABG pCO2 34 L (35-45) mmHg ABG O2 Saturation 98.1 H (94-97) % Sodium 134 L (137-145) mmol/L Carbon Dioxide 21 L (22-30) mmol/L BUN 54 H (9-20) mg/dL Creatinine 3.42 H (0.66-1.25) mg/dL Glucose 222 H (74-99) mg/dL POC Glucose (mg/dL) (75-99) mg/dL Calcium 7.7 L (8.4-10.2) mg/dL Total Protein 5.5 L (6.3-8.2) g/dL Albumin 2.5 L (3.5-5.0) g/dL 01/31/19 01/31/19 Range/Units 05:55 08:24 RBC (4.30-5.90) m/uL Hgb (13.0-17.5) gm/dL Hct (39.0-53.0) % ABG pCO2 (35-45) mmHg ABG O2 Saturation (94-97) % Sodium (137-145) mmol/L Carbon Dioxide (22-30) mmol/L BUN (9-20) mg/dL Creatinine (0.66-1.25) mg/dL Glucose (74-99) mg/dL POC Glucose (mg/dL) 229 H 206 H (75-99) mg/dL Calcium (8.4-10.2) mg/dL Total Protein (6.3-8.2) g/dL Albumin (3.5-5.0) g/dL Assessment and Plan Assessment: Altered mental status Hypoxic and hypercapnic respiratory failure Acute on chronic renal failure Bilateral atelectasis and possible aspiration pneumonia Fluid overload and acute interstitial edema Severe hyperglycemia 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 Sepsis and septic shock Insulin-dependent diabetes mellitus poorly controlled, being started on insulin drip Hypertension hypertensive cardiovascular disease Dyslipidemia Plan: We'll continue the weaning process patient on CPAP 5 pressure support 5 for 1 hour 3 times a day as tolerated with a sedation holiday, if unsuccessful then consideration will be given to trach and PEG early next week Continue dialysis once patient is significantly negative and tolerated dialysis well and consider extubation which will likely be in next 48-72 hours once fluid overload is compromised Continue vent support ventilated been adjusted Insulin drip, sugars are better controlled with that Monitor renal functions closely once patient is negative and renal function improving we will initiate the weaning process Patient observation monitored off of propofol does follow simple commands Will observe and monitor anisocoria Renal consultation and recommendations reviewed Continue gentle diuresis Broad-spectrum antibiotics Critical care time 35 minutes excluding procedure Time with Patient: Greater than 30
[2019-01-31 11:59] LABS: Glucose,Whole Blood 194 mg/dL (75-99)
[2019-01-31] MEDS: hydrALAZINE HCL 20 MG/ML 1 ML VIAL IVP PRN ×2 (12:13→22:40)
[2019-01-31 12:37] LABS: ABG Base Excess -2.3 mmol/L; ABG HCO3 23 mmol/L (21-25); ABG Oxygen Saturation 97.2 % (94-97); ABG PCO2 38 mmHg (35-45); ABG PH 7.39 (7.35-7.45); ABG PO2 95 mmHg (83-108); ABG TCO2 24 mmol/L (19-24)
[2019-01-31 12:39] LABS: Allen Test Performed? no
[2019-01-31 16:06] LABS: Glucose,Whole Blood 152 mg/dL (75-99)
--- NOTE | 2019-01-31 17:56 | PN ---
PROGRESS NOTE Patient is seen for followup for acute kidney injury. He remains on dialysis. He is receiving daily dialysis treatments mainly for volume overload. Urine output seems to have picked up slightly, staying at about 60 to 100 mL/hour. Patient was dialyzed again today and we will plan to dialyze him again tomorrow. PHYSICAL EXAMINATION: On examination this morning, blood pressure was 163/59, heart rate of 69 per minute. Patient is afebrile. EXAMINATION OF THE HEART: S1 and S2. EXAMINATION OF LUNGS: Bilateral breath sounds are heard. ABDOMEN: Soft, non-tender. Examination of lower extremities shows edema 1+ with scrotal edema noted. Patient has right BKA. DIRECTOR OF PLANNING exam cannot be performed. LABS: Sodium 134, potassium 3.7, chloride 103. CO2 is 21, BUN 54, creatinine 3.42, hemoglobin 7.9 g/dL. ASSESSMENT: 1. Acute kidney injury, acute tubular necrosis, currently nonoliguric. Patient remains hemodialysis-dependent, mainly secondary to volume overload. We will dialyze him again tomorrow, as there are plans for extubation. 2. Volume overload, slowly improving. 3. Hypoxic respiratory failure, currently on the vent. 4. Gangrene of the right lower extremity, status post amputation of the toes and eventually right below-knee amputation. 5. Anemia, currently maintained on Aranesp. No active bleeding noted. PLAN: Repeat dialysis in a.m. Continue to avoid nephrotoxic agents for acute kidney injury. MMODL / IJN: [id number] /
[2019-01-31 20:07] LABS: Glucose,Whole Blood 168 mg/dL (75-99)
[2019-01-31] MEDS: LATANOPROST 0.005% OPHTH DROPS 2.5 ML BTL LEFT EYE SCH (20:20)
[2019-02-01 00:06] LABS: Glucose,Whole Blood 191 mg/dL (75-99)
[2019-02-01] MEDS: FUROSEMIDE 10 MG/ML 10 ML VIAL IV SCH ×3 (00:10→15:33)
[2019-02-01] MEDS: HEPARIN SODIUM,PORCINE 5,000 UNIT/ML 1 ML VIAL SQ SCH ×3 (00:10→15:33)
[2019-02-01] MEDS: INSULIN ASPART (NovoLOG) 100 UNIT/ML VIAL SQ SCH ×6 (00:11→20:07)
[2019-02-01] MEDS: NOREPINEPHRINE 4 MG in SODIUM CHLORIDE 0.9% 250 ML IV SCH (00:11)
[2019-02-01] MEDS: PROPOFOL 1,000 MG in EMPTY BAG 1 BAG IV SCH ×2 (01:47→06:15)
[2019-02-01 04:14] LABS: Glucose,Whole Blood 174 mg/dL (75-99)
[2019-02-01 04:30] LABS: Hepatitis A Antibody IgM Non-Reactive (Non-Reactive); Hepatitis B Core IgM Non-Reactive (Non-Reactive); Hepatitis C IgG Antibody Non-Reactive (Non-Reactive)
[2019-02-01 04:40] LABS: Basophils # (A) 0.1 k/uL (0-0.2); Basophils % (A) 1 %; Eosinophils # (A) 0.4 k/uL (0-0.7); Eosinophils % (A) 4 %; HCT 24.5 % (39.0-53.0); HGB 8.2 gm/dL (13.0-17.5); Lymphocytes % (A) 10 %; MCH 29.3 pg (25.0-35.0); MCHC 33.6 g/dL (31.0-37.0); MCV 87.2 fL (80.0-100.0); Mean Platelet Volume 10.9; Monocytes # (A) 0.5 k/uL (0-1.0); Monocytes % (A) 5 %; Neutrophils # (A) 7.2 k/uL (1.3-7.7); Neutrophils % (A) 78 %; Platelet Count 202 k/uL (150-450); RBC 2.81 m/uL (4.30-5.90); RDW 13.1 % (11.5-15.5); WBC 9.3 k/uL (3.8-10.6)
[2019-02-01 05:07] LABS: Albumin 2.5 g/dL (3.5-5.0); Calcium 7.8 mg/dL (8.4-10.2); Potassium 3.5 mmol/L (3.5-5.1); Total Bilirubin 0.4 mg/dL (0.2-1.3); Total Protein 5.8 g/dL (6.3-8.2)
[2019-02-01] MEDS: SODIUM CHLORIDE 0.9% 1,000 ML IV SCH ×2 (06:15→15:33)
--- NOTE | 2019-02-01 06:32 | XR ---
EXAMINATION TYPE: XR chest 1V portable DATE OF EXAM: 02/01/2019 HISTORY: SOB. REFERENCE: Previous study dated 01/31/2019. FINDINGS: The patient's ET tube, NG tube and right internal jugular catheter remain in place, unchang ed in appearance. The heart is enlarged. There is vascular congestion. There are small, bilateral eff usions. I suspect some underlying edema. IMPRESSION: CONTINUING CHANGES OF MILD HEART FAILURE.
[2019-02-01 08:00] LABS: Glucose,Whole Blood 179 mg/dL (75-99)
[2019-02-01] MEDS: BRIMONIDINE TARTRATE 0.2% DROPS 5 ML BTL LEFT EYE SCH ×3 (08:37→21:16)
[2019-02-01] MEDS: CHLORHEXIDINE GLUCONATE 15 ML CUP MUCOUS MEM SCH ×2 (08:38→20:04)
[2019-02-01] MEDS: PIPERACILLIN-TAZOBACTAM 3.375 GM in SODIUM CHLORIDE 0.9% 100 ML IVPB SCH ×2 (08:39→20:06)
[2019-02-01] MEDS: GABAPENTIN 100 MG CAP PO SCH ×3 (08:39→21:16)
[2019-02-01] MEDS: PANTOPRAZOLE 40 MG/10 ML VIAL IV SCH (08:39)
[2019-02-01] MEDS: FLUoxetine HCL 20 MG CAP PO SCH (08:39)
[2019-02-01] MEDS: DORZOLAMIDE HCL 2% DROPS 10 ML BTL LEFT EYE SCH ×3 (08:42→21:17)
[2019-02-01] MEDS: TIMOLOL 0.5% OPHTH DROPS 5 ML BTL LEFT EYE SCH ×2 (08:54→20:06)
--- NOTE | 2019-02-01 10:34 | P.PN ---
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, poor compliance, dyslipidemia, dehydration 02/01/2019, patient seen eval examined during the rounds Asians propofol is slowly being titrated down, patient is undergoing hemodialysis so far 1 L of fluid has been removed one hour dialysis still left, one and half liter to be removed as well patient tolerated the procedure very well, labs reviewed medications reviewed x-ray reviewed as well once patient is done with the dialysis will put patient on CPAP and pressure support if tolerated very well then consider weaning and extubation 01/31/2019, protocol has been discontinued patient is still somnolent but does respond to physical stimuli patient will be placed on CPAP and pressure support once a relatively more awake will continue the weaning trials as tolerated patient is not due for dialysis today the x-ray reviewed labs reviewed as, chest x-ray continued to show evidence of fluid overload right-sided dialysis catheter is stable, hemoglobin stable at 7.9, the biopsy in normal limit, arterial blood gases shows resolution of severe metabolic acidosis, BUN/creatinine improved to 54 and 3.42, sugar is slightly elevated patient has been getting insulin sliding scale and as per protocol 01/30/2019, patient seen eval examined during the rounds labs reviewed medications reviewed care plan discussed with the staff and primary service at length patient has a CPAP pressure support trial today unable to tolerate for longer period time just lasted for 15 minutes started having desaturation and was extremely short of breath, switch back to assist control mode, patient however has a successful dialysis about 2 L of fluid has been removed patient will get another dialysis trial tomorrow, labs reviewed radiographic studies reviewed, x-ray still showing fluid overload changes no significant change has been notedAmmann patient also underwent dialysis catheter placement, we'll continue CPAP pressure support trial as the fluid has been removed with the dialysis, if unsuccessful then consideration of trach and PEG will be entertained early next week, his sugars are better controlled his been switched from insulin drip to sliding scale insulin with twice a day dose 01/28/2019 Pt seen and examined care plan reviewed during AM rounds had trouble d dialysis due to catheter clogging, renal fx slightly better, cxr not much changed, ABG post cpap/ps suggestive of mild resp acidosis and predominantly Metabolic acidosis, feel that pt would require at least 2-3 more cycles of dialysis before successfully take him of of Vent, would recommend daily dialysis 01/27/2019, patient seen elizabeth examined during the rounds patient is due for dialysis today, remains on full vent setting but however undergoing CPAP pressure support trial with 5 and 10 tolerating very well, per support will be decreased to 5, patient is due for another dialysis later on today, tomorrow will do the CPAP and pressure support and check a blood gas afterwards if does well then possibly extubate, chest x-ray continue show bilateral basilar atelectasis but overall they remained stable labs reviewed medications reviewed care plan discussed with the respiratory therapist and waitstaff at length critic al care time spent 35 minutes 01/26/2019, patient seen elizabeth examined during the rounds labs reviewed medications reviewed, patient has been on Lasix drip 10 mg an hour also on propofol drip 10 mcg, patient had a hemodialysis done here earlier today with intent to remove the fluid, patient will get another hemodialysis tomorrow as well, has placed patient on CPAP of 5 pressure support of 10 is spontaneously breathing the rate is about 16-18 and tidal volume 350-400 range, extensive amount of secretions are present still, patient is not ready not ready for extubation but however they're indeed ready for weaning would recommend continued to do hemodialysis on a daily basis for at least 3 or 4 days so that volume overload can be dealt with, right cell count is 12,000 and hemoglobin and hematocrit remained stable arterial blood gas reviewed still have significant metabolic acidosis, renal function continued decline progressively BUN and creatinine up to 84 and 5.2, remains on Zosyn, chest x-ray as above noted to have worsening changes due to fluid overload, culture not growing anything, insulin drip is on sugars better controlled now 01/24/2019, patient seen elizabeth reexamined during the rounds critical care time 35 minutes, patient has a weaning attempt with CPAP and pressure support but was not completed as patient is due for hemodialysis catheter placement in right femoral vein the renal service thinking about hemodialysis tomorrow breathing remains stable patient remains on assist control rate of 18 FiO2 of 50% 5 of PEEP, and renal function continued to deteriorate gradually being output slowly declining 01/23/2019, patient seen elizabeth examined during the rounds labs reviewed medications reviewed care plan discussed with the staff at length and had a short weaning attempt and a sedation holiday with which he tolerated for short period of time then becomes tachypneic put back on respirator fit. We'll patient has been diuresing fairly well has been negative for the first time, urine output of 30-40 mL an hour. BUN/creatinine remains stable, patient is postop day #1 of the BKA, chest x-ray from today reviewed findings are most suggestive of fluid overload less likely to be pneumonia, the ET tube and central line and NG tube was stable, white cell count is 13,000 arterial blood gases remained stable, BUN/creatinine gradually going up is 60 and 4.8 to, sugar is running on the higher side last check sugar was over 260 patient is being started on insulin drip 01/21/2019, patient seen and evaluated examined during the rounds labs reviewed medications reviewed, patient the remains on sedation with propofol mildly sedated he does wake up follow simple commands and munira -1-2, he remains on IV fluids gently being rehydrated 50 mL an hour to feed is being given this morning patient noted to have a tube coiling in the mouth as He is to have pulled out late morning hours, the need to be has been placed position has been confirmed chest x-ray continued to show for evidence of fluid overload and this should edema along with possible infiltrate, he remains on assist control rate of 18 and tidal volume of 505 of PEEP and oxygen is 50% he is +1.2 L since morning, care plan discussed with nephrology as well as the vascular surgery, as his BUN and creatinine continued to go up creatinine is 5.1 in spite of good adequate urine output, patient continue on broad-spectrum antibiotic when setting remains stable respiratory secretions are still thick tenacious and appears to be improving slowly, blood cultures and sputum culture has been negative, need to make eyes and nose on the negative side as well as would like to see been function improving before consideration of weaning that anticipate will take another 24-48 hours 01/20/2019, patient seen eval examined during the rounds and labs reviewed medications reviewed critical care time spent 35 minutes, patient remains on assist control rate 18 and tidal volume of 500 along with PEEP of 5, patient is sedated with propofol drip but doesn't respond to simple stimuli, patient has been making good amount of urine levo fed is not require S patient is hemodynamically stable urine output has improved to 50-60 mL an hour post Lasix which is advised by nephrology service urine output has improved, patient has been tolerating tube feed well given that volume overload situation due to hypotension and was given fluid for resuscitation patient gently being diuresed, she he remains on broad-spectrum antibiotic sliding scale insulin labs reviewed medications reviewed care plan discussed with the staff and 2 brothers at bedside at length, chest x-ray from today reviewed bilateral atelectasis and fluid overload is present overall suggestive of more of his CHF and pneumonia, white cell count is stable, arterial blood gases improved, BUN/creatinine continue to go up 56 and 4.17, sugars have been stabilized 01/19/2019, patient seen and evaluated examined in the ICU intubated on full ventilator support, patient had gradual loss of consciousness has been more lethargic arterial blood gases were checked shows hypercapnic and hypoxic respiratory failure was intubated in the ICU, patient has been placed on propofol he was volume depleted depleted aggressive fluid resuscitation were performed, is still require levo fed intermittently, patient was also noted to be hypoglycemic 7030 insulin and other oral hypoglycemic agents were discontinued, ultrasound of the abdomen has been performed which is reviewed no obvious hydronephrosis seen, patient has decreased urine output along with rising BUN/creatinine appeared to be acute tubular necrosis, patient also requiring intermittent bolus of D10 for hypoglycemia, wounds has been evaluated by vascular surgery noted recommendation, patient has very poor venous access, will put a central line in, critical care time 45 minutes during procedure, due to altered mental status CT of the head was performed which was negative 01/18/2019, patient seen eval examined while covering for Dr. Granger, waking up this morning slightly slow to respond but not confused, breathing comfortably denies any chest pain labs reviewed today patient has been evaluated by Dr. Bassett, white cell count is coming down to 19,000, lactic acid level is normalized, patient has been on broad-spectrum antibiotics with vascular surgery on board Objective - Vital Signs Vital signs: Vital Signs Temp 98.4 F 02/01/19 08:00 Pulse 86 02/01/19 09:00 Resp 18 02/01/19 09:00 BP 131/56 01/31/19 18:16 Pulse Ox 98 02/01/19 09:00 Intake & Output 01/31/19 02/01/19 02/01/19 18:59 06:59 18:59 Intake Total 806.000 859.736 247.545 Output Total 4045 735 210 Balance -3239.000 124.736 37.545 Weight 109.6 kg Intake: IV 321 373 169 0.9 Normal Saline ( 36 33 9 pressure bag) at 3mL/hr Piperacillin-Tazobactam 3 125 100 100 .375 gm In Sodium Chloride 0.9% 100 ml @ 25 mls/hr IVPB Q12HR [place] Rx #:[id number] Sodium Chloride 0.9% 1, 160 240 60 000 ml @ 20 mls/hr IV . Q24H [place] Rx#:[id number] Intake, IV Titration 200.000 191.736 53.545 Amount Propofol 1,000 mg In 200.000 191.736 53.545 Empty Bag 1 bag @ Titrate IV .Q0M [facility] Rx#: [id number] Tube Feeding 225 175 25 Other 60 120 Output: Urine 845 535 210 Stool 700 200 Hemodialysis 2500 Other: Voiding Method Indwelling Catheter Indwelling Catheter Indwelling Catheter ABP, PAP, CO, CI - Last Documented Arterial Blood Pressure 132/48 - Exam Intubated on full vent support on propofol getting IV fluids normal saline due to hypotension one more fluid bolus being given In general patient is alert and oriented 3 while propofol was stopped s HEENT head normocephalic and atraumatic Neck is supple no JVD no goiter no lymphadenopathy Chest exam reveals a few scattered rhonchi no wheezing Cardiac exam reveals regular heart sounds S1 and S2 no gallops no murmurs Abdomen is soft nontender no organomegaly with normal bowel sounds Extremity exam status post right BKA Neuro no gross focal neurological deficit, patient has anisocoria - Labs CBC & Chem 7: 02/01/19 04:25 02/01/19 04:25 Labs: Abnormal Lab Results - Last 24 Hours (Table) 01/31/19 01/31/19 01/31/19 Range/Units 04:59 11:58 12:32 RBC (4.30-5.90) m/uL Hgb (13.0-17.5) gm/dL Hct (39.0-53.0) % ABG O2 Saturation 97.2 H (94-97) % Sodium (137-145) mmol/L Carbon Dioxide (22-30) mmol/L BUN (9-20) mg/dL Creatinine (0.66-1.25) mg/dL Glucose (74-99) mg/dL POC Glucose (mg/dL) 194 H (75-99) mg/dL Calcium (8.4-10.2) mg/dL Total Protein (6.3-8.2) g/dL Albumin (3.5-5.0) g/dL Hep B Core Total Ab Reactive H (Non-Reactive) 01/31/19 01/31/19 02/01/19 Range/Units 16:04 20:05 00:05 RBC (4.30-5.90) m/uL Hgb (13.0-17.5) gm/dL Hct (39.0-53.0) % ABG O2 Saturation (94-97) % Sodium (137-145) mmol/L Carbon Dioxide (22-30) mmol/L BUN (9-20) mg/dL Creatinine (0.66-1.25) mg/dL Glucose (74-99) mg/dL POC Glucose (mg/dL) 152 H 168 H 191 H (75-99) mg/dL Calcium (8.4-10.2) mg/dL Total Protein (6.3-8.2) g/dL Albumin (3.5-5.0) g/dL Hep B Core Total Ab (Non-Reactive) 02/01/19 02/01/19 02/01/19 Range/Units 04:12 04:25 04:25 RBC 2.81 L (4.30-5.90) m/uL Hgb 8.2 L (13.0-17.5) gm/dL Hct 24.5 L (39.0-53.0) % ABG O2 Saturation (94-97) % Sodium 133 L (137-145) mmol/L Carbon Dioxide 21 L (22-30) mmol/L BUN 44 H (9-20) mg/dL Creatinine 2.90 H (0.66-1.25) mg/dL Glucose 193 H (74-99) mg/dL POC Glucose (mg/dL) 174 H (75-99) mg/dL Calcium 7.8 L (8.4-10.2) mg/dL Total Protein 5.8 L (6.3-8.2) g/dL Albumin 2.5 L (3.5-5.0) g/dL Hep B Core Total Ab (Non-Reactive) 02/01/19 Range/Units 07:59 RBC (4.30-5.90) m/uL Hgb (13.0-17.5) gm/dL Hct (39.0-53.0) % ABG O2 Saturation (94-97) % Sodium (137-145) mmol/L Carbon Dioxide (22-30) mmol/L BUN (9-20) mg/dL Creatinine (0.66-1.25) mg/dL Glucose (74-99) mg/dL POC Glucose (mg/dL) 179 H (75-99) mg/dL Calcium (8.4-10.2) mg/dL Total Protein (6.3-8.2) g/dL Albumin (3.5-5.0) g/dL Hep B Core Total Ab (Non-Reactive) Assessment and Plan Assessment: Altered mental status Hypoxic and hypercapnic respiratory failure Acute on chronic renal failure Bilateral atelectasis and possible aspiration pneumonia Fluid overload and acute interstitial edema Severe hyperglycemia 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 Sepsis and septic shock Insulin-dependent diabetes mellitus poorly controlled, being started on insulin drip Hypertension hypertensive cardiovascular disease Dyslipidemia Plan: We'll continue the weaning process patient on CPAP 5 pressure support postdialysis Continue vent support ventilated been adjusted continue sliding scale insulin Monitor renal functions closely once patient is negative and renal function i mproving we will initiate the weaning process Patient observation monitored off of propofol does follow simple commands Will observe and monitor anisocoria Renal consultation and recommendations reviewed Continue gentle diuresis Broad-spectrum antibiotics Critical care time 35 minutes excluding procedure Time with Patient: Greater than 30
--- NOTE | 2019-02-01 10:39 | PN ---
PROGRESS NOTE The patient is seen for followup for acute kidney injury. Currently he is seen on dialysis, tolerating his treatment well. Trying for about 2.5 L today. There are plans for possible extubation later on today. Patient continues to have urine output about 40-100 an hour. PHYSICAL EXAMINATION: This morning: Blood pressure 132/48, heart rate 86 per minute. He is afebrile. Examination of the heart S1, S2. Examination of the lungs, bilateral breath sounds are heard. ABDOMEN: Soft, obese. Examination of lower extremities shows improved edema. The patient has right BKA. LABS: Show sodium 133, potassium 3.5, chloride 101, BUN 44, creatinine 2.9, hemoglobin 8.2 g/dL. ASSESSMENT: 1. Acute kidney injury, acute tubular necrosis, currently nonoliguric, maintained on daily dialysis, mainly for volume overload. 2. Volume overload slowly improving. 3. Status post right below knee amputation. 4. Anemia with no active bleeding noted. 5. Hypoxic respiratory failure, maintained on the vent with plans for possible extubation today. 6. Right lower extremity ischemia with wet gangrene status post amputation of toes followed by a right below knee amputation. PLAN: UF of about 2.5 L today. We will plan for next treatment on 02/03/2019 unless patient has issues with respiratory distress over the weekend if he is extubated. MMMICHAELL / GABON: [id number] /
[2019-02-01 11:47] LABS: Glucose,Whole Blood 151 mg/dL (75-99)
--- NOTE | 2019-02-01 14:22 | P.PN ---
Subjective Progress Note Date: 02/01/19 Refugio Saenz, is a 68-year-old male who presented to [facility] emergency room with pain in the right foot, he was evaluated in emergency room and had blackish discoloration of the right fifth toe with surrounding erythema and tenderness, patient was started on IV antibiotics Zosyn, vancomycin, and clindamycin, he was admitted to medical floor vascular surgery consultation was requested for possible amputation due to evidence of gangrene. Infectious disease consultation was requested. Patient has a known history of insulin-dependent diabetes mellitus, his glucose level was well controlled up until September of this year his A1c in June was 7.1 and in September was 7.3 however apparently patient stopped taking his insulin and his medications and his A1c was up to 9.8 in November, he has a known history of right foot ulcer he was admitted to the hospital with right foot cellulitis and ulcer in 2014 and he was followed at the wound care clinic in 2015 however he was doing well up until recently. Patient also has a known history of hypertension, hyperlipidemia, he denies any history of coronary artery disease or congestive heart failure, he had an echocardiogram done in 2014 at that time he had normal left ventricular function was normal ejection fraction, no significant valvular disease and no pulmonary hypertension. 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 On 01/17/2019 patient's alert and oriented 3. Patient had fourth and fifth toe amputation with Dr. Bustillos this morning. Patient having some low blood pressure will give 500 mL bolus. Patient denies chest pain or shortness of breath. Patient denies nausea vomiting or diarrhea. Patient is having some increased pain to foot area pain medications ordered 01/18/2019, patient seen eval examined while covering for Dr. Granger, waking up this morning slightly slow to respond but not confused, breathing comfortably denies any chest pain labs reviewed today patient has been evaluated by Dr. Bassett, white cell count is coming down to 19,000, lactic acid level is normalized, patient has been on broad-spectrum antibiotics with vascular surgery on board 01/19/2019, patient seen and evaluated examined in the ICU intubated on full ventilator support, patient had gradual loss of consciousness has been more lethargic arterial blood gases were checked shows hypercapnic and hypoxic respiratory failure was intubated in the ICU, patient has been placed on propo fol he was volume depleted depleted aggressive fluid resuscitation were performed, is still requiring levophed intermittently, patient was also noted to be hypoglycemic 7030 insulin and other oral hypoglycemic agents were discontinued, ultrasound of the abdomen has been performed which is reviewed no obvious hydronephrosis seen, patient has decreased urine output along with rising BUN/creatinine appeared to be acute tubular necrosis, patient also requiring intermittent bolus of D10 for hypoglycemia, wounds has been evaluated by vascular surgery noted recommendation, patient has very poor venous access, will put a central line in, critical care time 45 minutes during procedure, due to altered mental status CT of the head was performed which was negative On 01/20/2019 patient remains in the intensive care unit on mechanical ventilation. Levophed has been on hold blood pressures has sustained. Creatinine has increased to 4.17 and bun 56. Nephrology services are following. Per nursing staff patient does follow commands during sedation holiday ABGs have improved. Discussed case with vascular surgeon nurse practitioner possible BKA discussion. White blood cell decreasing to 16.0. Critical care services are following. Patient remains on Zosyn for IV antibiotics. Infectious disease following 01/21/2019 patient remains on mechanical ventilation on in the intensive care unit. Patient remains sedated, on propofol. However per nursing staff patient does follow commands during sedation holiday. Patient is on 50% FiO2, 5 PEEP, tidal volume 500. Levophed off since 01/20/20. Blood pressure remains in the 130's-150's systolic. Creatinine 4.35 from 4.17 and BUN 57 from 56, Calcium 7.0, phosphorus 5.9 Nephrology is following. Orogastric tube replaced this morning. Per nursing staff OG tube was coiled in patient's mouth with tube feeds running. Chest x-ray repeated, no significant change from previous. ABG improving, still metabolic acidosis. WBC of 14.1 down from 16. Afebrile. Infectious disease is following patient is maintained on Zosyn. Will send C. diff sample due to new onset diarrhea for 1 day. Hyperglycemia noted (glucose 200's). Will discuss tube feed formula with dietary. If no changes can be made will adjust sliding scale. On 01/22/2019 patient remains sedated on mechanical ventilation in the intensive care unit. Per nursing staff patient is to have a BKA today with Dr. Bustillos. Patient remains off pressors, blood pressure has been stable. Chest x-ray repeated this morning, per pulmonary. No significant change in ABGs. Creatinine continues to increase, 4.84 today BUN 60, patient is still making adequate urine output nephrology is following. Tube feeds on hold, for pending OR. WBC 14.2, temperature overnight 100F. Please is following patient is maintained on Zosyn. C. diff sample was negative. 01/23/2019 patient remains sedated and on mechanical ventilation in the ICU. He underwent right BKA yesterday, 01/22/[address] Bustillos. Estimated blood loss 150 mL. He had a temp of 100 last night. Urine output is about 50 mL per hour. Creatinine has gone down from 4.84-4.82. Nephrology is following closely. No plans for hemodialysis yet. Patient's blood sugars are starting to become more elevated. They're in the 180s to 200s. Tube feedings are being adjusted. White count 13.7 hemoglobin 10.3 On 01/24/2019 patient remains sedated on mechanical ventilation in the intensive care unit. Decreased urine output throughout night. Creatinine 5.15 and bun 68. Patient remains on insulin drip. WBC 14.1. Patient having low-grade temps. Patient remains closely followed by critical care consulting providers On 01/25/2019 patient was seen and examined in the intensive care unit, he is currently alert and maintained on BiPAP trial, he is making more urine output, and no hemodialysis is scheduled at this time, creatinine improved, down from 5.15-4.44 white blood count down to 11.3 patient is followed by nephrology, infectious disease, pulmonary and critical care and vascular surgery On 01/26/2019 patient was seen and examined in the ICU, he is intubated sedated maintained on mechanical ventilation, creatinine went up today and he was started on hemodialysis, Zosyn has today, at this time will resume Zosyn, we have asked infectious disease to see patient and reassess antibiotics, otherwise patient is stable there is no fever or chills, he continues to have a rectal tube and having large amount of diarrhea, C. diff was checked and was negative will repeat test today. On 01/27/2019 patient remains on mechanical ventilation in the intensive care unit. Creatinine trending down today 4.76 and bun 77. Patient remains on Lasix drip per nephrology services. White count 11.8. She remains on IV Zosyn. Sedation holiday performed per nursing staff and critical care recommendation. On 01/28/2019 patient remains in the intensive care unit on mechanical ventilation. Sedation currently turned off. Patient is awake and following commands possible extubation today per critical care. Patient also received hemodialysis this will be the patient's third round of hemodialysis. Creatinine is trending down 4.44. Patient remains on Lasix drip. On 01/29/2019 patient remains in ICU intubated sedated maintained on mechanical ventilation, he had to CPAP trials yesterday, he is still maintained on hemodialysis, creatinine is elevated at 4.8 and BUN 89. On 01/30/2019 patient remains on mechanical ventilation in the intensive care unit. Patient is off sedation at this time and following commands. CPAP trial in place. Possible extubation today. Patient currently getting hemodialysis. Permanent hemodialysis catheter placed yesterday. Creatinine is trending down. Patient taken off insulin drip. on 01/31/2019 patient remains in intensive care unit on mechanical ventilation. Discussed case with critical care doctor Dr. Dominguez Yesterday. Patient unable to wean. we'll continue to monitor patient over the weekend and consider possible trach next week. Patient also received hemodialysis yesterday. On 02/01/2019 patient was seen and examined in the ICU he is intubated and maegan ntained on mechanical ventilation sedation is being stopped now for CPAP trial Objective - Vital Signs Vital signs: Vital Signs Temp 99.3 F 02/01/19 12:00 Pulse 75 02/01/19 12:00 Resp 18 02/01/19 12:00 BP 129/49 02/01/19 11:24 Pulse Ox 97 02/01/19 12:00 Intake & Output 01/31/19 02/01/19 02/01/19 18:59 06:59 18:59 Intake Total 806.000 859.736 338.410 Output Total 4045 735 2790 Balance -3239.000 124.736 -2451.590 Weight 109.6 kg Intake: IV 321 373 238 0.9 Normal Saline ( 36 33 18 pressure bag) at 3mL/hr Piperacillin-Tazobactam 3 125 100 100 .375 gm In Sodium Chloride 0.9% 100 ml @ 25 mls/hr IVPB Q12HR [facility] Rx #:[id number] Sodium Chloride 0.9% 1, 160 240 120 000 ml @ 20 mls/hr IV . Q24H [place] Rx#:[id number] Intake, IV Titration 200.000 191.736 75.410 Amount Propofol 1,000 mg In 200.000 191.736 75.410 Empty Bag 1 bag @ Titrate IV .Q0M [place] Rx#: [id number] Tube Feeding 225 175 25 Other 60 120 Output: Urine 845 535 290 Stool 700 200 Hemodialysis 2500 2500 Other: Voiding Method Indwelling Catheter Indwelling Catheter Indwelling Catheter ABP, PAP, CO, CI - Last Documented Arterial Blood Pressure 137/47 - Exam Patient HEENT head normocephalic and atraumatic Neck is supple no JVD no goiter no lymphadenopathy Chest exam reveals diminished lung sounds, a few scattered rhonchi no wheezing Cardiac exam reveals regular heart sounds S1 and S2 no gallops no murmurs Abdomen is obese, soft nontender no organomegaly with normal bowel sounds Extremity right BKA. Dressing is clean dry and intact Neuro no gross focal neurological deficit. Patient sedated on mechanical ventilation - Labs CBC & Chem 7: 02/01/19 04:25 02/01/19 04:25 Labs: Abnormal Lab Results - Last 24 Hours (Table) 01/31/19 01/31/19 01/31/19 Range/Units 04:59 12:32 16:04 RBC (4.30-5.90) m/uL Hgb (13.0-17.5) gm/dL Hct (39.0-53.0) % ABG O2 Saturation 97.2 H (94-97) % Sodium (137-145) mmol/L Carbon Dioxide (22-30) mmol/L BUN (9-20) mg/dL Creatinine (0.66-1.25) mg/dL Glucose (74-99) mg/dL POC Glucose (mg/dL) 152 H (75-99) mg/dL Calcium (8.4-10.2) mg/dL Total Protein (6.3-8.2) g/dL Albumin (3.5-5.0) g/dL Hep B Core Total Ab Reactive H (Non-Reactive) 01/31/19 02/01/19 02/01/19 Range/Units 20:05 00:05 04:12 RBC (4.30-5.90) m/uL Hgb (13.0-17.5) gm/dL Hct (39.0-53.0) % ABG O2 Saturation (94-97) % Sodium (137-145) mmol/L Carbon Dioxide (22-30) mmol/L BUN (9-20) mg/dL Creatinine (0.66-1.25) mg/dL Glucose (74-99) mg/dL POC Glucose (mg/dL) 168 H 191 H 174 H (75-99) mg/dL Calcium (8.4-10.2) mg/dL Total Protein (6.3-8.2) g/dL Albumin (3.5-5.0) g/dL Hep B Core Total Ab (Non-Reactive) 02/01/19 02/01/19 02/01/19 Range/Units 04:25 04:25 07:59 RBC 2.81 L (4.30-5.90) m/uL Hgb 8.2 L (13.0-17.5) gm/dL Hct 24.5 L (39.0-53.0) % ABG O2 Saturation (94-97) % Sodium 133 L (137-145) mmol/L Carbon Dioxide 21 L (22-30) mmol/L BUN 44 H (9-20) mg/dL Creatinine 2.90 H (0.66-1.25) mg/dL Glucose 193 H (74-99) mg/dL POC Glucose (mg/dL) 179 H (75-99) mg/dL Calcium 7.8 L (8.4-10.2) mg/dL Total Protein 5.8 L (6.3-8.2) g/dL Albumin 2.5 L (3.5-5.0) g/dL Hep B Core Total Ab (Non-Reactive) 02/01/19 Range/Units 11:45 RBC (4.30-5.90) m/uL Hgb (13.0-17.5) gm/dL Hct (39.0-53.0) % ABG O2 Saturation (94-97) % Sodium (137-145) mmol/L Carbon Dioxide (22-30) mmol/L BUN (9-20) mg/dL Creatinine (0.66-1.25) mg/dL Glucose (74-99) mg/dL POC Glucose (mg/dL) 151 H (75-99) mg/dL Calcium (8.4-10.2) mg/dL Total Protein (6.3-8.2) g/dL Albumin (3.5-5.0) g/dL Hep B Core Total Ab (Non-Reactive) Assessment and Plan Plan: #1 gangrene involving the right fifth toe with surrounding cellulitis Status post amputation of fourth and fifth toe with Dr. Bustillos. Patient is currently postop day 4. Possible discussion of below knee amputation rather than attempt at possible revascularization. Arterial Doppler completed, ALMA of the right 0.79. Status post right BKA per vascular surgery #2 sepsis present on admission as evidenced by fever, leukocytosis, and elevated lactic acid. White blood cell improving to 14.2 from 16. Lactic acid normalized, 0.7. Infectious disease is following. Patient remains on Zosyn for IV antibiotics #3 acute hypoxic and hypercapnic respiratory failure with altered mental status changes secondary to severe sepsis. Patient was transferred to the intensive care unit and placed on mechanical ventilation. Patient is sedated on propofol . Per nursing staff patient is following commands . Vent things 50 FiO2, PEEP 5. 500 tidal volume, rate 18. Critical care services are following. continue weaning trials per critical care #4. Hypotension secondary to septic shock. Levophed currently off. Blood pressure has improved, systolic 130s to 150s. #5. Acute kidney injury secondary to ATN secondary to hypotension as well as vancomycin toxicity. Nephrology services are following. Ultrasound completed showing no evidence of hydronephrosis. Creatinine increasing to 4. 35 and bun 57. Per nephrology services maintain 0.9 normal saline at 50/ml, avoid nephrotoxins. Vancomycin and lisinopril have been discontinued. continue to monitor urine output closely. Status post hemodialysis per nephrology services. Patient currently maintained on Lasix drip per nephrology creatinine did trend down to 4.76. She currently receiving hemodialysis. Permanent hemodialysis catheter placed on 01/29/2019 #6. history of essential hypertension. Cardiology services following. EF 50- 55%. Per cardiology services no evidence of acute coronary syndrome at this time #7. insulin-dependent diabetes mellitus, with poor control due to noncompliance last hemoglobin A1c was 9.8 at this time will hold glipizide, Januvia and metformin, and cover was insulin to sliding scale will adjust medications as needed. Blood sugars have been in the 200s after episode of hypoglycemia. Patient currently on insulin drip for tight blood sugar control. Insulin drip has been DC'd. Patient started on sliding scale coverage #8. underlying history of diabetic complications of peripheral neuropathy and retinopathy. #9. poor compliance with medical management, patient had extensive counseling in the last year, his A1c was down to 7.1 in June however it was up to 9.8 again recently. #10 underlying history of hyperlipidemia maintained on atorvastatin, on hold. #11. Hypoglycemia. Home meds DC'd. Tube feedings have been initiated. Hypoglycemia has resolved #12. Suspected aspiration. Orogastric tube was coiled in the patient's mouth with tube feeds running. Tube was removed and replaced. Chest x-ray completed. Overall stable findings, no significant change from prior, bilateral small pleural effusions noted, CHF exacerbation versus fluid overload state. Repeat chest x-ray today per pulmonary. No acute changes made, no change in ABG. Infectious disease is following. DVT prophylaxis heparin. GI prophylaxis Protonix Patient remains in the intensive care unit on mechanical ventilation Critical care, vascular surgery, infectious disease, cardiology and nephrology services following
[2019-02-01 15:45] LABS: Glucose,Whole Blood 169 mg/dL (75-99)
[2019-02-01 17:46] LABS: Glucose,Whole Blood 181 mg/dL (75-99)
[2019-02-01] MEDS: MORPHINE SULFATE 2 MG/ML SYRINGE IVP PRN ×2 (18:21→20:34)
[2019-02-01 19:53] LABS: Glucose,Whole Blood 176 mg/dL (75-99)
[2019-02-01] MEDS: hydrALAZINE HCL 20 MG/ML 1 ML VIAL IVP PRN (20:04)
[2019-02-01] MEDS: LATANOPROST 0.005% OPHTH DROPS 2.5 ML BTL LEFT EYE SCH (20:05)
[2019-02-01 23:58] LABS: Glucose,Whole Blood 173 mg/dL (75-99)
[2019-02-02] MEDS: HEPARIN SODIUM,PORCINE 5,000 UNIT/ML 1 ML VIAL SQ SCH ×4 (00:28→23:46)
[2019-02-02] MEDS: INSULIN ASPART (NovoLOG) 100 UNIT/ML VIAL SQ SCH ×7 (00:28→23:46)
[2019-02-02] MEDS: FUROSEMIDE 10 MG/ML 10 ML VIAL IV SCH ×4 (00:28→23:46)
[2019-02-02 03:53] LABS: Glucose,Whole Blood 171 mg/dL (75-99)
[2019-02-02] MEDS: SODIUM CHLORIDE 0.9% 1,000 ML IV SCH ×3 (03:59→21:13)
[2019-02-02 04:18] LABS: Basophils # (A) 0.1 k/uL (0-0.2); Basophils % (A) 1 %; Eosinophils # (A) 0.3 k/uL (0-0.7); Eosinophils % (A) 3 %; HCT 25.2 % (39.0-53.0); HGB 8.4 gm/dL (13.0-17.5); Lymphocytes % (A) 11 %; MCH 29.3 pg (25.0-35.0); MCHC 33.2 g/dL (31.0-37.0); MCV 88.4 fL (80.0-100.0); Mean Platelet Volume 10.4; Monocytes # (A) 0.5 k/uL (0-1.0); Monocytes % (A) 6 %; Neutrophils # (A) 7.1 k/uL (1.3-7.7); Neutrophils % (A) 76 %; Platelet Count 196 k/uL (150-450); RBC 2.85 m/uL (4.30-5.90); RDW 13.4 % (11.5-15.5); WBC 9.3 k/uL (3.8-10.6)
[2019-02-02 04:35] LABS: Albumin 2.7 g/dL (3.5-5.0); Calcium 8.1 mg/dL (8.4-10.2); Potassium 3.7 mmol/L (3.5-5.1); Total Bilirubin 0.5 mg/dL (0.2-1.3); Total Protein 6.2 g/dL (6.3-8.2)
[2019-02-02 05:11] LABS: ABG Base Excess -1.2 mmol/L; ABG HCO3 24 mmol/L (21-25); ABG Oxygen Saturation 98.5 % (94-97); ABG PCO2 38 mmHg (35-45); ABG PO2 114 mmHg (83-108); ABG TCO2 25 mmol/L (19-24); Allen Test Performed? Yes
--- NOTE | 2019-02-02 06:16 | XR ---
EXAMINATION TYPE: XR chest 1V portable DATE OF EXAM: 02/02/2019 HISTORY: SOB. REFERENCE: Previous study dated 02/01/2019. FINDINGS: The patient is ET tube and NG tube as well as right internal jugular catheters remain in pl nahun, unchanged in appearance. There is vascular congestion. There is mild interstitial change. There is bibasilar atelectasis. Ther e are bilateral effusions. The heart is mildly enlarged. IMPRESSION: 1. CONTINUING CHANGES OF CONGESTIVE HEART FAILURE. THESE MAY HAVE IMPROVED SLIGHTLY. 2. BIBASILAR AIRSPACE DISEASE WHICH MAY REPRESENT ATELECTASIS, PNEUMONIA OR CONFLUENT EDEMA. 3. BILATERAL EFFUSIONS.
[2019-02-02 08:01] LABS: Glucose,Whole Blood 207 mg/dL (75-99)
[2019-02-02] MEDS: CHLORHEXIDINE GLUCONATE 15 ML CUP MUCOUS MEM SCH (08:28)
[2019-02-02] MEDS: GABAPENTIN 100 MG CAP PO SCH ×3 (08:28→21:12)
[2019-02-02] MEDS: FLUoxetine HCL 20 MG CAP PO SCH (08:28)
[2019-02-02] MEDS: PANTOPRAZOLE 40 MG/10 ML VIAL IV SCH (08:28)
[2019-02-02] MEDS: PIPERACILLIN-TAZOBACTAM 3.375 GM in SODIUM CHLORIDE 0.9% 100 ML IVPB SCH (08:29)
[2019-02-02] MEDS: DORZOLAMIDE HCL 2% DROPS 10 ML BTL LEFT EYE SCH ×3 (08:29→21:12)
[2019-02-02] MEDS: TIMOLOL 0.5% OPHTH DROPS 5 ML BTL LEFT EYE SCH ×2 (08:30→21:12)
[2019-02-02] MEDS: BRIMONIDINE TARTRATE 0.2% DROPS 5 ML BTL LEFT EYE SCH ×3 (08:31→21:12)
[2019-02-02 12:05] LABS: Glucose,Whole Blood 166 mg/dL (75-99)
--- NOTE | 2019-02-02 12:25 | PN ---
PROGRESS NOTE The patient is seen for followup for acute kidney injury. He is currently awake. He remains on the vent, but is maintained on CPAP. PHYSICAL EXAMINATION: On examination today, blood pressure was 125/55, heart rate 70 per minute. Patient is afebrile. Examination of the heart S1, S2. Examination of the lungs, bilateral breath sounds are heard. Abdomen is soft, nontender, obese. Examination of lower extremities shows no significant edema. The patient has right BKA. 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 He is following commands. LABS: Show sodium 134, potassium 3.7, BUN 37, creatinine 2.7, hemoglobin 8.4 g/dL. ASSESSMENT: 1. Acute kidney injury, acute tubular necrosis, currently nonoliguric. Continue with IV Lasix to help with the volume status. We will hold off on hemodialysis today and plan for a treatment tomorrow. 2. Hypoxic respiratory failure currently on the vent with good weaning parameters. Possible extubation today. 3. Volume overload now improved. 4. Status post right below knee amputation. 5. Right lower extremity ischemia with wet gangrene, status post amputation of toes followed by a right below knee amputation. 6. Sepsis, currently improved. PLAN: Continue with IV Lasix. Repeat hemodialysis in a.m. MMODL / IJN: [id number] /
--- NOTE | 2019-02-02 13:55 | P.PN ---
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, poor compliance, dyslipidemia, dehydration February 02 2019, patient seen eval examined during the rounds labs reviewed medications reviewed radiographic studies reviewed as well, patient has been placed on CPAP of 5 pressure support 18 has been doing very well with that arterial blood gas in weaning parameters are reviewed even though patient appears to be in weeks' side but feel that patient can be successfully extubated proceeded with extubation, patient has been placed on 4 L nasal cannula postextubation he has a weak cough I have instructed staff to get him out of the bed with deep breathing and cough, patient will require BiPAP H night and when necessary during the day setting have been adjusted, continue Lasix when necessary seems to be making urine patient is due for dialysis tomorrow as well, critical care time spent 35 minutes 02/01/2019, patient seen eval examined during the rounds Asians propofol is slowly being titrated down, patient is undergoing hemodialysis so far 1 L of fluid has been removed one hour dialysis still left, one and half liter to be removed as well patient tolerated the procedure very well, labs reviewed medications reviewed x-ray reviewed as well once patient is done with the dialysis will put patient on CPAP and pressure support if tolerated very well then consider weaning and extubation 01/31/2019, protocol has been discontinued patient is still somnolent but does respond to physical stimuli patient will be placed on CPAP and pressure support once a relatively more awake will continue the weaning trials as tolerated patient is not due for dialysis today the x-ray reviewed labs reviewed as, chest x-ray continued to show evidence of fluid overload right-sided dialysis catheter is stable, hemoglobin stable at 7.9, the biopsy in normal limit, arterial blood gases shows resolution of severe metabolic acidosis, BUN/creatinine improved to 54 and 3.42, sugar is slightly elevated patient has been getting insulin sliding scale and as per protocol 01/30/2019, patient seen eval examined during the rounds labs reviewed medications reviewed care plan discussed with the staff and primary service at length patient has a CPAP pressure support trial today unable to tolerate for longer period time just lasted for 15 minutes started having desaturation and was extremely short of breath, switch back to assist control mode, patient h owever has a successful dialysis about 2 L of fluid has been removed patient will get another dialysis trial tomorrow, labs reviewed radiographic studies reviewed, x-ray still showing fluid overload changes no significant change has been notedAmmann patient also underwent dialysis catheter placement, we'll continue CPAP pressure support trial as the fluid has been removed with the dialysis, if unsuccessful then consideration of trach and PEG will be entertained early next week, his sugars are better controlled his been switched from insulin drip to sliding scale insulin with twice a day dose 01/28/2019 Pt seen and examined care plan reviewed during AM rounds had trouble d dialysis due to catheter clogging, renal fx slightly better, cxr not much changed, ABG post cpap/ps suggestive of mild resp acidosis and predominantly Metabolic acidosis, feel that pt would require at least 2-3 more cycles of dialysis before successfully take him of of Vent, would recommend daily dialysis 01/27/2019, patient seen eval examined during the rounds patient is due for dialysis today, remains on full vent setting but however undergoing CPAP pressure support trial with 5 and 10 tolerating very well, per support will be decreased to 5, patient is due for another dialysis later on today, tomorrow will do the CPAP and pressure support and check a blood gas afterwards if does well then possibly extubate, chest x-ray continue show bilateral basilar atelectasis but overall they remained stable labs reviewed medications reviewed care plan discussed with the respiratory therapist and temporary staff accountant at length critical care time spent 35 minutes 01/26/2019, patient seen eval examined during the rounds labs reviewed medications reviewed, patient has been on Lasix drip 10 mg an hour also on propofol drip 10 mcg, patient had a hemodialysis done here earlier today with intent to remove the fluid, patient will get another hemodialysis tomorrow as well, has placed patient on CPAP of 5 pressure support of 10 is spontaneously breathing the rate is about 16-18 and tidal volume 350-400 range, extensive amount of secretions are present still, patient is not ready not ready for extubation but however they're indeed ready for weaning would recommend continued to do hemodialysis on a daily basis for at least 3 or 4 days so that volume overload can be dealt with, right cell count is 12,000 and hemoglobin and hematocrit remained stable arterial blood gas reviewed still have significant metabolic acidosis, renal function continued decline progressively BUN and creatinine up to 84 and 5.2, remains on Zosyn, chest x-ray as above noted to have worsening changes due to fluid overload, culture not growing anything, insulin drip is on sugars better controlled now 01/24/2019, patient seen elizabeth reexamined during the rounds critical care time 35 minutes, patient has a weaning attempt with CPAP and pressure support but was not completed as patient is due for hemodialysis catheter placement in right femoral vein the renal service thinking about hemodialysis tomorrow breathing remains stable patient remains on assist control rate of 18 FiO2 of 50% 5 of PEEP, and renal function continued to deteriorate gradually being output slowly declining 01/23/2019, patient seen elizabeth examined during the rounds labs reviewed medications reviewed care plan discussed with the staff at length and had a short weaning attempt and a sedation holiday with which he tolerated for short period of time then becomes tachypneic put back on respirator fit. We'll patient has been diuresing fairly well has been negative for the first time, urine output of 30-40 mL an hour. BUN/creatinine remains stable, patient is postop day #1 of the BKA, chest x-ray from today reviewed findings are most suggestive of fluid overload less likely to be pneumonia, the ET tube and central line and NG tube was stable, white cell count is 13,000 arterial blood gases remained stable, BUN/creatinine gradually going up is 60 and 4.8 to, sugar is running on the higher side last check sugar was over 260 patient is being started on insulin drip 01/21/2019, patient seen and evaluated examined during the rounds labs reviewed medications reviewed, patient the remains on sedation with propofol mildly sedated he does wake up follow simple commands and mnuira -1-2, he remains on IV fluids gently being rehydrated 50 mL an hour to feed is being given this morning patient noted to have a tube coiling in the mouth as He is to have pulled out late morning hours, the need to be has been placed position has been confirmed chest x-ray continued to show for evidence of fluid overload and this should edema along with possible infiltrate, he remains on assist control rate of 18 and tidal volume of 505 of PEEP and oxygen is 50% he is +1.2 L since morning, care plan discussed with nephrology as well as the vascular surgery, as his BUN and creatinine continued to go up creatinine is 5.1 in spite of good adequate urine output, patient continue on broad-spectrum antibiotic when setting remains stable respiratory secretions are still thick tenacious and appears to be improving slowly, blood cultures and sputum culture has been negative, need to make eyes and nose on the negative side as well as would like to see been function improving before consideration of weaning that anticipate will take another 24-48 hours 01/20/2019, patient seen eval examined during the rounds and labs reviewed medications reviewed critical care time spent 35 minutes, patient remains on assist control rate 18 and tidal volume of 500 along with PEEP of 5, patient is sedated with propofol drip but doesn't respond to simple stimuli, patient has been making good amount of urine levo fed is not require S patient is hemodynamically stable urine output has improved to 50-60 mL an hour post Lasix which is advised by nephrology service urine output has improved, patient has been tolerating tube feed well given that volume overload situation due to hypotension and was given fluid for resuscitation patient gently being diuresed, she he remains on broad-spectrum antibiotic sliding scale insulin labs reviewed medications reviewed care plan discussed with the staff and 2 brothers at bedside at length, chest x-ray from today reviewed bilateral atelectasis and fl uid overload is present overall suggestive of more of his CHF and pneumonia, white cell count is stable, arterial blood gases improved, BUN/creatinine continue to go up 56 and 4.17, sugars have been stabilized 01/19/2019, patient seen and evaluated examined in the ICU intubated on full ventilator support, patient had gradual loss of consciousness has been more lethargic arterial blood gases were checked shows hypercapnic and hypoxic respiratory failure was intubated in the ICU, patient has been placed on propofol he was volume depleted depleted aggressive fluid resuscitation were performed, is still require levo fed intermittently, patient was also noted to be hypoglycemic 7030 insulin and other oral hypoglycemic agents were discontinued, ultrasound of the abdomen has been performed which is reviewed no obvious hydronephrosis seen, patient has decreased urine output along with rising BUN/creatinine appeared to be acute tubular necrosis, patient also requiring intermittent bolus of D10 for hypoglycemia, wounds has been evaluated by vascular surgery noted recommendation, patient has very poor venous access, will put a central line in, critical care time 45 minutes during procedure, due to altered mental status CT of the head was performed which was negative 01/18/2019, patient seen eval examined while covering for Dr. Granger, waking up this morning slightly slow to respond but not confused, breathing comfortably denies any chest pain labs reviewed today patient has been evaluated by Dr. Bassett, white cell count is coming down to 19,000, lactic acid level is normalized, patient has been on broad-spectrum antibiotics with vascular surgery on board Objective - Vital Signs Vital signs: Vital Signs Temp 100.9 F H 02/02/19 12:00 Pulse 64 02/02/19 12:00 Resp 30 H 02/02/19 12:00 BP 116/50 02/02/19 12:00 Pulse Ox 98 02/02/19 12:00 Intake & Output 02/01/19 02/02/19 02/02/19 18:59 06:59 18:59 Intake Total 476.410 671 478 Output Total 2905 285 225 Balance -2428.590 386 253 Weight 108.8 kg Intake: IV 376 276 238 0.9 Normal Saline ( 36 36 18 pressure bag) at 3mL/hr Piperacillin-Tazobactam 3 100 100 .375 gm In Sodium Chloride 0.9% 100 ml @ 25 mls/hr IVPB Q12HR [place] Rx #:[id number] Sodium Chloride 0.9% 1, 240 240 120 000 ml @ 20 mls/hr IV . Q24H [place] Rx#:[id number] Intake, IV Titration 75.410 Amount Propofol 1,000 mg In 75.410 Empty Bag 1 bag @ Titrate IV .Q0M [place] Rx#: [id number] Tube Feeding 25 275 150 Other 120 90 Output: Urine 405 285 225 Hemodialysis 2500 Other: Voiding Method Indwelling Catheter Indwelling Catheter Indwelling Catheter # Voids 1 # Bowel Movements 1 1 ABP, PAP, CO, CI - Last Documented Arterial Blood Pressure 132/49 - Exam Intubated on full vent support on propofol getting IV fluids normal saline , assessed pre-and post extubation HEENT head normocephalic and atraumatic Neck is supple no JVD no goiter no lymphadenopathy Chest exam reveals a few scattered rhonchi no wheezing Cardiac exam reveals regular heart sounds S1 and S2 no gallops no murmurs Abdomen is soft nontender no organomegaly with normal bowel sounds Extremity exam status post right BKA Neuro no gross focal neurological deficit, patient has anisocoria - Labs CBC & Chem 7: 02/02/19 04:03 02/02/19 04:03 Labs: Abnormal Lab Results - Last 24 Hours (Table) 02/01/19 02/01/19 02/01/19 Range/Units 15:42 17:45 19:51 RBC (4.30-5.90) m/uL Hgb (13.0-17.5) gm/dL Hct (39.0-53.0) % ABG pO2 (83-108) mmHg ABG Total CO2 (19-24) mmol/L ABG O2 Saturation (94-97) % Sodium (137-145) mmol/L BUN (9-20) mg/dL Creatinine (0.66-1.25) mg/dL Glucose (74-99) mg/dL POC Glucose (mg/dL) 169 H 181 H 176 H (75-99) mg/dL Calcium (8.4-10.2) mg/dL Total Protein (6.3-8.2) g/dL Albumin (3.5-5.0) g/dL 02/01/19 02/02/19 02/02/19 Range/Units 23:56 03:51 04:03 RBC 2.85 L (4.30-5.90) m/uL Hgb 8.4 L (13.0-17.5) gm/dL Hct 25.2 L (39.0-53.0) % ABG pO2 (83-108) mmHg ABG Total CO2 (19-24) mmol/L ABG O2 Saturation (94-97) % Sodium (137-145) mmol/L BUN (9-20) mg/dL Creatinine (0.66-1.25) mg/dL Glucose (74-99) mg/dL POC Glucose (mg/dL) 173 H 171 H (75-99) mg/dL Calcium (8.4-10.2) mg/dL Total Protein (6.3-8.2) g/dL Albumin (3.5-5.0) g/dL 02/02/19 02/02/19 02/02/19 Range/Units 04:03 05:06 07:59 RBC (4.30-5.90) m/uL Hgb (13.0-17.5) gm/dL Hct (39.0-53.0) % ABG pO2 114 H (83-108) mmHg ABG Total CO2 25 H (19-24) mmol/L ABG O2 Saturation 98.5 H (94-97) % Sodium 134 L (137-145) mmol/L BUN 37 H (9-20) mg/dL Creatinine 2.70 H (0.66-1.25) mg/dL Glucose 177 H (74-99) mg/dL POC Glucose (mg/dL) 207 H (75-99) mg/dL Calcium 8.1 L (8.4-10.2) mg/dL Total Protein 6.2 L (6.3-8.2) g/dL Albumin 2.7 L (3.5-5.0) g/dL 02/02/19 Range/Units 12:03 RBC (4.30-5.90) m/uL Hgb (13.0-17.5) gm/dL Hct (39.0-53.0) % ABG pO2 (83-108) mmHg ABG Total CO2 (19-24) mmol/L ABG O2 Saturation (94-97) % Sodium (137-145) mmol/L BUN (9-20) mg/dL Creatinine (0.66-1.25) mg/dL Glucose (74-99) mg/dL POC Glucose (mg/dL) 166 H (75-99) mg/dL Calcium (8.4-10.2) mg/dL Total Protein (6.3-8.2) g/dL Albumin (3.5-5.0) g/dL Assessment and Plan Assessment: Altered mental status Hypoxic and hypercapnic respiratory failure Acute on chronic renal failure Bilateral atelectasis and possible aspiration pneumonia Fluid overload and acute interstitial edema Severe hyperglycemia 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 Sepsis and septic shock Insulin-dependent diabetes mellitus poorly controlled, being started on insulin drip Hypertension hypertensive cardiovascular disease Dyslipidemia Plan: We'll continue the weaning process patient on CPAP 5 pressure support postdialysis, successfully extubated Will use BiPAP each night and when necessary during the day continue sliding scale insulin Monitor renal functions closely once patient is negative and renal function improving we will initiate the weaning processs chest PT and physical therapy Up on chair increase activity as tolerated Continue gentle diuresis continue dialysis as planned Broad-spectrum antibiotics Critical care time 35 minutes Time with Patient: Greater than 30
--- NOTE | 2019-02-02 14:53 | P.PN ---
Subjective Progress Note Date: 02/02/19 Refugio Saenz, is a 68-year-old male who presented to [facility] emergency room with pain in the right foot, he was evaluated in emergency room and had blackish discoloration of the right fifth toe with surrounding erythema and tenderness, patient was started on IV antibiotics Zosyn, vancomycin, and clindamycin, he was admitted to medical floor vascular surgery consultation was requested for possible amputation due to evidence of gangrene. Infectious disease consultation was requested. Patient has a known history of insulin-dependent diabetes mellitus, his glucose level was well controlled up until September of this year his A1c in June was 7.1 and in September was 7.3 however apparently patient stopped taking his insulin and his medications and his A1c was up to 9.8 in November, he has a known history of right foot ulcer he was admitted to the hospital with right foot cellulitis and ulcer in 2014 and he was followed at the wound care clinic in 2015 however he was doing well up until recently. Patient also has a known history of hypertension, hyperlipidemia, he denies any history of coronary artery disease or congestive heart failure, he had an echocardiogram done in 2014 at that time he had normal left ventricular function was normal ejection fraction, no significant valvular disease and no pulmonary hypertension. 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 On 01/17/2019 patient's alert and oriented 3. Patient had fourth and fifth toe amputation with Dr. Bustillos this morning. Patient having some low blood pressure will give 500 mL bolus. Patient denies chest pain or shortness of breath. Patient denies nausea vomiting or diarrhea. Patient is having some increased pain to foot area pain medications ordered 01/18/2019, patient seen eval examined while covering for Dr. Granger, waking up this morning slightly slow to respond but not confused, breathing comfortably denies any chest pain labs reviewed today patient has been evaluated by Dr. Bassett, white cell count is coming down to 19,000, lactic acid level is normalized, patient has been on broad-spectrum antibiotics with vascular surgery on board 01/19/2019, patient seen and evaluated examined in the ICU intubated on full ventilator support, patient had gradual loss of consciousness has been more lethargic arterial blood gases were checked shows hypercapnic and hypoxic respiratory failure was intubated in the ICU, patient has been placed on propo fol he was volume depleted depleted aggressive fluid resuscitation were performed, is still requiring levophed intermittently, patient was also noted to be hypoglycemic 7030 insulin and other oral hypoglycemic agents were discontinued, ultrasound of the abdomen has been performed which is reviewed no obvious hydronephrosis seen, patient has decreased urine output along with rising BUN/creatinine appeared to be acute tubular necrosis, patient also requiring intermittent bolus of D10 for hypoglycemia, wounds has been evaluated by vascular surgery noted recommendation, patient has very poor venous access, will put a central line in, critical care time 45 minutes during procedure, due to altered mental status CT of the head was performed which was negative On 01/20/2019 patient remains in the intensive care unit on mechanical ventilation. Levophed has been on hold blood pressures has sustained. Creatinine has increased to 4.17 and bun 56. Nephrology services are following. Per nursing staff patient does follow commands during sedation holiday ABGs have improved. Discussed case with vascular surgeon nurse practitioner possible BKA discussion. White blood cell decreasing to 16.0. Critical care services are following. Patient remains on Zosyn for IV antibiotics. Infectious disease following 01/21/2019 patient remains on mechanical ventilation on in the intensive care unit. Patient remains sedated, on propofol. However per nursing staff patient does follow commands during sedation holiday. Patient is on 50% FiO2, 5 PEEP, tidal volume 500. Levophed off since 01/20/20. Blood pressure remains in the 130's-150's systolic. Creatinine 4.35 from 4.17 and BUN 57 from 56, Calcium 7.0, phosphorus 5.9 Nephrology is following. Orogastric tube replaced this morning. Per nursing staff OG tube was coiled in patient's mouth with tube feeds running. Chest x-ray repeated, no significant change from previous. ABG improving, still metabolic acidosis. WBC of 14.1 down from 16. Afebrile. Infectious disease is following patient is maintained on Zosyn. Will send C. diff sample due to new onset diarrhea for 1 day. Hyperglycemia noted (glucose 200's). Will discuss tube feed formula with dietary. If no changes can be made will adjust sliding scale. On 01/22/2019 patient remains sedated on mechanical ventilation in the intensive care unit. Per nursing staff patient is to have a BKA today with Dr. Bustillos. Patient remains off pressors, blood pressure has been stable. Chest x-ray repeated this morning, per pulmonary. No significant change in ABGs. Creatinine continues to increase, 4.84 today BUN 60, patient is still making adequate urine output nephrology is following. Tube feeds on hold, for pending OR. WBC 14.2, temperature overnight 100F. Please is following patient is maintained on Zosyn. C. diff sample was negative. 01/23/2019 patient remains sedated and on mechanical ventilation in the ICU. He underwent right BKA yesterday, 01/22/[address] Bustillos. Estimated blood loss 150 mL. He had a temp of 100 last night. Urine output is about 50 mL per hour. Creatinine has gone down from 4.84-4.82. Nephrology is following closely. No plans for hemodialysis yet. Patient's blood sugars are starting to become more elevated. They're in the 180s to 200s. Tube feedings are being adjusted. White count 13.7 hemoglobin 10.3 On 01/24/2019 patient remains sedated on mechanical ventilation in the intensive care unit. Decreased urine output throughout night. Creatinine 5.15 and bun 68. Patient remains on insulin drip. WBC 14.1. Patient having low-grade temps. Patient remains closely followed by critical care consulting providers On 01/25/2019 patient was seen and examined in the intensive care unit, he is currently alert and maintained on BiPAP trial, he is making more urine output, and no hemodialysis is scheduled at this time, creatinine improved, down from 5.15-4.44 white blood count down to 11.3 patient is followed by nephrology, infectious disease, pulmonary and critical care and vascular surgery On 01/26/2019 patient was seen and examined in the ICU, he is intubated sedated maintained on mechanical ventilation, creatinine went up today and he was started on hemodialysis, Zosyn has today, at this time will resume Zosyn, we have asked infectious disease to see patient and reassess antibiotics, otherwise patient is stable there is no fever or chills, he continues to have a rectal tube and having large amount of diarrhea, C. diff was checked and was negative will repeat test today. On 01/27/2019 patient remains on mechanical ventilation in the intensive care unit. Creatinine trending down today 4.76 and bun 77. Patient remains on Lasix drip per nephrology services. White count 11.8. She remains on IV Zosyn. Sedation holiday performed per nursing staff and critical care recommendation. On 01/28/2019 patient remains in the intensive care unit on mechanical ventilation. Sedation currently turned off. Patient is awake and following commands possible extubation today per critical care. Patient also received hemodialysis this will be the patient's third round of hemodialysis. Creatinine is trending down 4.44. Patient remains on Lasix drip. On 01/29/2019 patient remains in ICU intubated sedated maintained on mechanical ventilation, he had to CPAP trials yesterday, he is still maintained on hemodialysis, creatinine is elevated at 4.8 and BUN 89. On 01/30/2019 patient remains on mechanical ventilation in the intensive care unit. Patient is off sedation at this time and following commands. CPAP trial in place. Possible extubation today. Patient currently getting hemodialysis. Permanent hemodialysis catheter placed yesterday. Creatinine is trending down. Patient taken off insulin drip. on 01/31/2019 patient remains in intensive care unit on mechanical ventilation. Discussed case with critical care doctor Dr. Dominguez Yesterday. Patient unable to wean. we'll continue to monitor patient over the weekend and consider possible trach next week. Patient also received hemodialysis yesterday. On 02/01/2019 patient was seen and examined in the ICU he is intubated and maegan ntained on mechanical ventilation sedation is being stopped now for CPAP trial on 02/02/2019 patient was seen and examined in the ICU he has been extubated since yesterday, he is tolerating well maintained on oxygen via nasal cannula, he seems somnolent however he is opening his eyes and answering questions by nodding his head and trying to speak, there is no fever or chills no headache or dizziness no chest pain no shortness of breath he has occasional cough no nausea or vomiting no abdominal pain. Objective - Vital Signs Vital signs: Vital Signs Temp 100.9 F H 02/02/19 12:00 Pulse 71 02/02/19 14:00 Resp 20 02/02/19 14:00 BP 134/67 02/02/19 14:00 Pulse Ox 97 02/02/19 14:00 Intake & Output 02/01/19 02/02/19 02/02/19 18:59 06:59 18:59 Intake Total 476.410 671 524 Output Total 2905 285 285 Balance -2428.590 386 239 Weight 108.8 kg Intake: IV 376 276 284 0.9 Normal Saline ( 36 36 24 pressure bag) at 3mL/hr Piperacillin-Tazobactam 3 100 100 .375 gm In Sodium Chloride 0.9% 100 ml @ 25 mls/hr IVPB Q12HR [place] Rx #:[id number] Sodium Chloride 0.9% 1, 240 240 160 000 ml @ 20 mls/hr IV . Q24H [place] Rx#:[id number] Intake, IV Titration 75.410 Amount Propofol 1,000 mg In 75.410 Empty Bag 1 bag @ Titrate IV .Q0M [place] Rx#: [id number] Tube Feeding 25 275 150 Other 120 90 Output: Urine 405 285 285 Hemodialysis 2500 Other: Voiding Method Indwelling Catheter Indwelling Catheter Indwelling Catheter # Voids 1 # Bowel Movements 1 1 ABP, PAP, CO, CI - Last Documented Arterial Blood Pressure 152/51 - Exam Patient HEENT head normocephalic and atraumatic Neck is supple no JVD no goiter no lymphadenopathy Chest exam reveals diminished lung sounds, a few scattered rhonchi no wheezing Cardiac exam reveals regular heart sounds S1 and S2 no gallops no murmurs Abdomen is obese, soft nontender no organomegaly with normal bowel sounds Extremity right BKA. Dressing is clean dry and intact Neuro no gross focal neurological deficit. - Labs CBC & Chem 7: 02/02/19 04:03 02/02/19 04:03 Labs: Abnormal Lab Results - Last 24 Hours (Table) 02/01/19 02/01/19 02/01/19 Range/Units 15:42 17:45 19:51 RBC (4.30-5.90) m/uL Hgb (13.0-17.5) gm/dL Hct (39.0-53.0) % ABG pO2 (83-108) mmHg ABG Total CO2 (19-24) mmol/L ABG O2 Saturation (94-97) % Sodium (137-145) mmol/L BUN (9-20) mg/dL Creatinine (0.66-1.25) mg/dL Glucose (74-99) mg/dL POC Glucose (mg/dL) 169 H 181 H 176 H (75-99) mg/dL Calcium (8.4-10.2) mg/dL Total Protein (6.3-8.2) g/dL Albumin (3.5-5.0) g/dL 02/01/19 02/02/19 02/02/19 Range/Units 23:56 03:51 04:03 RBC 2.85 L (4.30-5.90) m/uL Hgb 8.4 L (13.0-17.5) gm/dL Hct 25.2 L (39.0-53.0) % ABG pO2 (83-108) mmHg ABG Total CO2 (19-24) mmol/L ABG O2 Saturation (94-97) % Sodium (137-145) mmol/L BUN (9-20) mg/dL Creatinine (0.66-1.25) mg/dL Glucose (74-99) mg/dL POC Glucose (mg/dL) 173 H 171 H (75-99) mg/dL Calcium (8.4-10.2) mg/dL Total Protein (6.3-8.2) g/dL Albumin (3.5-5.0) g/dL 02/02/19 02/02/19 02/02/19 Range/Units 04:03 05:06 07:59 RBC (4.30-5.90) m/uL Hgb (13.0-17.5) gm/dL Hct (39.0-53.0) % ABG pO2 114 H (83-108) mmHg ABG Total CO2 25 H (19-24) mmol/L ABG O2 Saturation 98.5 H (94-97) % Sodium 134 L (137-145) mmol/L BUN 37 H (9-20) mg/dL Creatinine 2.70 H (0.66-1.25) mg/dL Glucose 177 H (74-99) mg/dL POC Glucose (mg/dL) 207 H (75-99) mg/dL Calcium 8.1 L (8.4-10.2) mg/dL Total Protein 6.2 L (6.3-8.2) g/dL Albumin 2.7 L (3.5-5.0) g/dL 02/02/19 Range/Units 12:03 RBC (4.30-5.90) m/uL Hgb (13.0-17.5) gm/dL Hct (39.0-53.0) % ABG pO2 (83-108) mmHg ABG Total CO2 (19-24) mmol/L ABG O2 Saturation (94-97) % Sodium (137-145) mmol/L BUN (9-20) mg/dL Creatinine (0.66-1.25) mg/dL Glucose (74-99) mg/dL POC Glucose (mg/dL) 166 H (75-99) mg/dL Calcium (8.4-10.2) mg/dL Total Protein (6.3-8.2) g/dL Albumin (3.5-5.0) g/dL Assessment and Plan Plan: #1 gangrene involving the right fifth toe with surrounding cellulitis Status post amputation of fourth and fifth toe with Dr. Bustillos. Patient is currently postop day 4. Possible discussion of below knee amputation rather than attempt at possible revascularization. Arterial Doppler completed, ALMA of the right 0.79. Status post right BKA per vascular surgery #2 sepsis present on admission as evidenced by fever, leukocytosis, and elevated lactic acid. White blood cell improving down to 9.3. Infectious disease is following. Patient his office Zosyn at this time per infectious disease recommendation. #3 acute hypoxic and hypercapnic respiratory failure with altered mental status changes secondary to severe sepsis. Patient was transferred to the intensive care unit and placed on mechanical ventilation. Patient is sedated on propofol . Per nursing staff patient is following commands . Vent things 50 FiO2, PEEP 5. 500 tidal volume, rate 18. Critical care services are following. continue weaning trials per critical care #4. Hypotension secondary to septic shock. Levophed currently off. Blood pressure has improved, systolic 130s to 150s. #5. Acute kidney injury secondary to ATN secondary to hypotension as well as vancomycin toxicity. Nephrology services are following. Ultrasound completed showing no evidence of hydronephrosis. Creatinine increasing to 4. 35 and bun 57. Per nephrology services maintain 0.9 normal saline at 50/ml, avoid nephrotoxins. Vancomycin and lisinopril have been discontinued. continue to monitor urine output closely. Status post hemodialysis per nephrology services. Patient currently maintained on Lasix drip per nephrology creatinine did trend down to 4.76. She currently receiving hemodialysis. Permanent hemodialysis catheter placed on 01/29/2019 #6. history of essential hypertension. Cardiology services following. EF 50- 55%. Per cardiology services no evidence of acute coronary syndrome at this time #7. insulin-dependent diabetes mellitus, with poor control due to noncompliance last hemoglobin A1c was 9.8 at this time will hold glipizide, Januvia and metformin, and cover was insulin to sliding scale will adjust medications as needed. Blood sugars have been in the 200s after episode of hypoglycemia. Patient currently on insulin drip for tight blood sugar control. Insulin drip has been DC'd. Patient started on sliding scale coverage #8. underlying history of diabetic complications of peripheral neuropathy and retinopathy. #9. poor compliance with medical management, patient had extensive counseling in the last year, his A1c was down to 7.1 in June however it was up to 9.8 again recently. #10 underlying history of hyperlipidemia maintained on atorvastatin, on hold. #11. Hypoglycemia. Home meds DC'd. Tube feedings have been initiated. Hypoglycemia has resolved #12. Suspected aspiration. Orogastric tube was coiled in the patient's mouth with tube feeds running. Tube was removed and replaced. Chest x-ray completed. Overall stable findings, no significant change from prior, bilateral small pleural effusions noted, CHF exacerbation versus fluid overload state. Repeat chest x-ray today per pulmonary. No acute changes made, no change in ABG. Infectious disease is following. DVT prophylaxis heparin. GI prophylaxis Protonix Patient remains in the intensive care unit on mechanical ventilation Critical care, vascular surgery, infectious disease, cardiology and nephrology services following
[2019-02-02] MEDS: MORPHINE SULFATE 2 MG/ML SYRINGE IVP PRN (16:02)
[2019-02-02 16:06] LABS: Glucose,Whole Blood 142 mg/dL (75-99)
[2019-02-02 21:09] LABS: Glucose,Whole Blood 143 mg/dL (75-99)
[2019-02-02] MEDS: LATANOPROST 0.005% OPHTH DROPS 2.5 ML BTL LEFT EYE SCH (21:11)
[2019-02-02 23:37] LABS: Glucose,Whole Blood 139 mg/dL (75-99)
[2019-02-03 00:10] LABS: Glucose,Whole Blood 152 mg/dL (75-99)
[2019-02-03 03:43] LABS: Glucose,Whole Blood 124 mg/dL (75-99)
[2019-02-03 03:44] LABS: ABG Base Excess -1.6 mmol/L; ABG HCO3 24 mmol/L (21-25); ABG Oxygen Saturation 98.5 % (94-97); ABG PCO2 43 mmHg (35-45); ABG PH 7.35 (7.35-7.45); ABG PO2 119 mmHg (83-108); ABG TCO2 25 mmol/L (19-24); Allen Test Performed? Yes
[2019-02-03] MEDS: INSULIN ASPART (NovoLOG) 100 UNIT/ML VIAL SQ SCH ×5 (05:03→20:44)
[2019-02-03] MEDS: MORPHINE SULFATE 2 MG/ML SYRINGE IVP PRN ×3 (05:06→16:20)
[2019-02-03 06:00] LABS: Basophils # (A) 0.1 k/uL (0-0.2); Basophils % (A) 1 %; Eosinophils # (A) 0.4 k/uL (0-0.7); Eosinophils % (A) 6 %; HCT 25.8 % (39.0-53.0); HGB 8.5 gm/dL (13.0-17.5); Lymphocytes % (A) 13 %; MCH 29.4 pg (25.0-35.0); MCV 89.3 fL (80.0-100.0); Mean Platelet Volume 10.5; Monocytes # (A) 0.5 k/uL (0-1.0); Monocytes % (A) 7 %; Neutrophils # (A) 5.3 k/uL (1.3-7.7); Neutrophils % (A) 70 %; Platelet Count 198 k/uL (150-450); RBC 2.89 m/uL (4.30-5.90); RDW 13.1 % (11.5-15.5); WBC 7.6 k/uL (3.8-10.6)
[2019-02-03 06:23] LABS: Albumin 2.9 g/dL (3.5-5.0); Calcium 8.4 mg/dL (8.4-10.2); Potassium 3.7 mmol/L (3.5-5.1); Total Bilirubin 0.5 mg/dL (0.2-1.3); Total Protein 6.4 g/dL (6.3-8.2)
[2019-02-03] MEDS: FUROSEMIDE 10 MG/ML 10 ML VIAL IV SCH ×3 (09:01→23:52)
[2019-02-03] MEDS: HEPARIN SODIUM,PORCINE 5,000 UNIT/ML 1 ML VIAL SQ SCH ×3 (09:01→23:52)
[2019-02-03] MEDS: PANTOPRAZOLE 40 MG/10 ML VIAL IV SCH (09:02)
--- NOTE | 2019-02-03 09:03 | P.PN ---
Subjective Patient is seen in follow-up for acute kidney injury, currently hemodialysis dependent. He sitting up in chair. Denies chest pain or shortness of breath. He wants to go home. Vital signs are stable. General: The patient appeared well nourished and normally developed. HEENT: Head exam is unremarkable. Neck is without jugular venous distension. LUNGS: Lungs are clear to auscultation and percussion. Breath sounds decreased. HEART: Rate and Rhythm are regular. First and second heart sounds normal. No murmurs, rubs or gallops. ABDOMEN: Abdominal exam reveals normal bowel sounds. Non-tender and non- distended. No evidence of peritonitis. EXTREMITITES: 1+ edema. Right BKA noted. Objective - Vital Signs Vital signs: Vital Signs Temp 98.1 F 02/03/19 00:00 Pulse 65 02/03/19 07:00 Resp 13 02/03/19 07:00 BP 128/70 02/03/19 06:00 Pulse Ox 97 02/03/19 07:00 Intake & Output 02/02/19 02/03/19 02/03/19 18:59 06:59 18:59 Intake Total 616 276 69 Output Total 460 620 275 Balance 156 -344 -206 Intake: IV 376 276 69 0.9 Normal Saline ( 36 36 9 pressure bag) at 3mL/hr Piperacillin-Tazobactam 3 100 20 .375 gm In Sodium Chloride 0.9% 100 ml @ 25 mls/hr IVPB Q12HR [place] Rx #:[id number] Sodium Chloride 0.9% 1, 240 220 60 000 ml @ 20 mls/hr IV . Q24H [facility] Rx#:[id number] Tube Feeding 150 Other 90 Output: Urine 460 620 275 Other: Voiding Method Indwelling Catheter Indwelling Catheter Indwelling Catheter # Bowel Movements 1 ABP, PAP, CO, CI - Last Documented Arterial Blood Pressure 152/56 - Labs CBC & Chem 7: 02/03/19 05:40 02/03/19 05:40 Labs: Abnormal Lab Results - Last 24 Hours (Table) 02/02/19 02/02/19 02/02/19 Range/Units 12:03 16:04 21:07 RBC (4.30-5.90) m/uL Hgb (13.0-17.5) gm/dL Hct (39.0-53.0) % ABG pO2 (83-108) mmHg ABG Total CO2 (19-24) mmol/L ABG O2 Saturation (94-97) % Carbon Dioxide (22-30) mmol/L BUN (9-20) mg/dL Creatinine (0.66-1.25) mg/dL Glucose (74-99) mg/dL POC Glucose (mg/dL) 166 H 142 H 143 H (75-99) mg/dL Albumin (3.5-5.0) g/dL 02/02/19 02/03/19 02/03/19 Range/Units 23:36 00:08 03:40 RBC (4.30-5.90) m/uL Hgb (13.0-17.5) gm/dL Hct (39.0-53.0) % ABG pO2 119 H (83-108) mmHg ABG Total CO2 25 H (19-24) mmol/L ABG O2 Saturation 98.5 H (94-97) % Carbon Dioxide (22-30) mmol/L BUN (9-20) mg/dL Creatinine (0.66-1.25) mg/dL Glucose (74-99) mg/dL POC Glucose (mg/dL) 139 H 152 H (75-99) mg/dL Albumin (3.5-5.0) g/dL 02/03/19 02/03/19 02/03/19 Range/Units 03:42 05:40 05:40 RBC 2.89 L (4.30-5.90) m/uL Hgb 8.5 L (13.0-17.5) gm/dL Hct 25.8 L (39.0-53.0) % ABG pO2 (83-108) mmHg ABG Total CO2 (19-24) mmol/L ABG O2 Saturation (94-97) % Carbon Dioxide 21 L (22-30) mmol/L BUN 47 H (9-20) mg/dL Creatinine 3.65 H (0.66-1.25) mg/dL Glucose 125 H (74-99) mg/dL POC Glucose (mg/dL) 124 H (75-99) mg/dL Albumin 2.9 L (3.5-5.0) g/dL Assessment and Plan Plan: Assessment: 1. Acute kidney injury secondary to ATN secondary to sepsis. Currently hemodialysis dependent via right chest permacath. 2. Acute hypoxic respiratory failure. Now extubated. 3. Right lower extremity ischemia with wet gangrene status post right BKA. 4. Volume overload. Improving with diuresis and ultrafiltration. 5. Metabolic acidosis secondary to acute kidney injury. Expect improvement postdialysis. 6. Hyperphosphatemia secondary to acute kidney injury. Plan: Hemodialysis today. Maintain IV Lasix. Continue to monitor renal function and urine output. Repeat phosphorus level.
[2019-02-03] MEDS: TIMOLOL 0.5% OPHTH DROPS 5 ML BTL LEFT EYE SCH ×2 (09:04→22:22)
[2019-02-03] MEDS: DORZOLAMIDE HCL 2% DROPS 10 ML BTL LEFT EYE SCH ×3 (09:04→22:21)
[2019-02-03] MEDS: BRIMONIDINE TARTRATE 0.2% DROPS 5 ML BTL LEFT EYE SCH ×3 (09:04→22:22)
--- NOTE | 2019-02-03 10:08 | P.PN ---
Subjective Progress Note Date: 02/03/19 Refugio Saenz, is a 68-year-old male who presented to [facility] emergency room with pain in the right foot, he was evaluated in emergency room and had blackish discoloration of the right fifth toe with surrounding erythema and tenderness, patient was started on IV antibiotics Zosyn, vancomycin, and clindamycin, he was admitted to medical floor vascular surgery consultation was requested for possible amputation due to evidence of gangrene. Infectious disease consultation was requested. Patient has a known history of insulin-dependent diabetes mellitus, his glucose level was well controlled up until September of this year his A1c in June was 7.1 and in September was 7.3 however apparently patient stopped taking his insulin and his medications and his A1c was up to 9.8 in November, he has a known history of right foot ulcer he was admitted to the hospital with right foot cellulitis and ulcer in 2014 and he was followed at the wound care clinic in 2015 however he was doing well up until recently. Patient also has a known history of hypertension, hyperlipidemia, he denies any history of coronary artery disease or congestive heart failure, he had an echocardiogram done in 2014 at that time he had normal left ventricular function was normal ejection fraction, no significant valvular disease and no pulmonary hypertension. 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 On 01/17/2019 patient's alert and oriented 3. Patient had fourth and fifth toe amputation with Dr. Bustillos this morning. Patient having some low blood pressure will give 500 mL bolus. Patient denies chest pain or shortness of breath. Patient denies nausea vomiting or diarrhea. Patient is having some increased pain to foot area pain medications ordered 01/18/2019, patient seen eval examined while covering for Dr. Granger, waking up this morning slightly slow to respond but not confused, breathing comfortably denies any chest pain labs reviewed today patient has been evaluated by Dr. Bassett, white cell count is coming down to 19,000, lactic acid level is normalized, patient has been on broad-spectrum antibiotics with vascular surgery on board 01/19/2019, patient seen and evaluated examined in the ICU intubated on full ventilator support, patient had gradual loss of consciousness has been more lethargic arterial blood gases were checked shows hypercapnic and hypoxic respiratory failure was intubated in the ICU, patient has been placed on propof ol he was volume depleted depleted aggressive fluid resuscitation were performed, is still requiring levophed intermittently, patient was also noted to be hypoglycemic 7030 insulin and other oral hypoglycemic agents were discontinued, ultrasound of the abdomen has been performed which is reviewed no obvious hydronephrosis seen, patient has decreased urine output along with rising BUN/creatinine appeared to be acute tubular necrosis, patient also requiring intermittent bolus of D10 for hypoglycemia, wounds has been evaluated by vascular surgery noted recommendation, patient has very poor venous access, will put a central line in, critical care time 45 minutes during procedure, due to altered mental status CT of the head was performed which was negative On 01/20/2019 patient remains in the intensive care unit on mechanical ventilation. Levophed has been on hold blood pressures has sustained. Creatinine has increased to 4.17 and bun 56. Nephrology services are following. Per nursing staff patient does follow commands during sedation holiday ABGs have improved. Discussed case with vascular surgeon nurse practitioner possible BKA discussion. White blood cell decreasing to 16.0. Critical care services are following. Patient remains on Zosyn for IV antibiotics. Infectious disease following 01/21/2019 patient remains on mechanical ventilation on in the intensive care unit. Patient remains sedated, on propofol. However per nursing staff patient does follow commands during sedation holiday. Patient is on 50% FiO2, 5 PEEP, tidal volume 500. Levophed off since 01/20/20. Blood pressure remains in the 130's-150's systolic. Creatinine 4.35 from 4.17 and BUN 57 from 56, Calcium 7.0, phosphorus 5.9 Nephrology is following. Orogastric tube replaced this morning. Per nursing staff OG tube was coiled in patient's mouth with tube feeds running. Chest x-ray repeated, no significant change from previous. ABG improving, still metabolic acidosis. WBC of 14.1 down from 16. Afebrile. Infectious disease is following patient is maintained on Zosyn. Will send C. diff sample due to new onset diarrhea for 1 day. Hyperglycemia noted (glucose 200's). Will discuss tube feed formula with dietary. If no changes can be made will adjust sliding scale. On 01/22/2019 patient remains sedated on mechanical ventilation in the intensive care unit. Per nursing staff patient is to have a BKA today with Dr. Bustillos. Patient remains off pressors, blood pressure has been stable. Chest x-ray repeated this morning, per pulmonary. No significant change in ABGs. Creatinine continues to increase, 4.84 today BUN 60, patient is still making adequate urine output nephrology is following. Tube feeds on hold, for pending OR. WBC 14.2, temperature overnight 100F. Please is following patient is maintained on Zosyn. C. diff sample was negative. 01/23/2019 patient remains sedated and on mechanical ventilation in the ICU. He underwent right BKA yesterday, 01/22/[address] Bustillos. Estimated blood loss 150 mL. He had a temp of 100 last night. Urine output is about 50 mL per hour. Creatinine has gone down from 4.84-4.82. Nephrology is following closely. No plans for hemodialysis yet. Patient's blood sugars are starting to become more elevated. They're in the 180s to 200s. Tube feedings are being adjusted. White count 13.7 hemoglobin 10.3 On 01/24/2019 patient remains sedated on mechanical ventilation in the intensive care unit. Decreased urine output throughout night. Creatinine 5.15 and bun 68. Patient remains on insulin drip. WBC 14.1. Patient having low-grade temps. Patient remains closely followed by critical care consulting providers On 01/25/2019 patient was seen and examined in the intensive care unit, he is currently alert and maintained on BiPAP trial, he is making more urine output, and no hemodialysis is scheduled at this time, creatinine improved, down from 5.15-4.44 white blood count down to 11.3 patient is followed by nephrology, infectious disease, pulmonary and critical care and vascular surgery On 01/26/2019 patient was seen and examined in the ICU, he is intubated sedated maintained on mechanical ventilation, creatinine went up today and he was started on hemodialysis, Zosyn has today, at this time will resume Zosyn, we have asked infectious disease to see patient and reassess antibiotics, otherwise patient is stable there is no fever or chills, he continues to have a rectal tube and having large amount of diarrhea, C. diff was checked and was negative will repeat test today. On 01/27/2019 patient remains on mechanical ventilation in the intensive care unit. Creatinine trending down today 4.76 and bun 77. Patient remains on Lasix drip per nephrology services. White count 11.8. She remains on IV Zosyn. Sedation holiday performed per nursing staff and critical care recommendation. On 01/28/2019 patient remains in the intensive care unit on mechanical ventilation. Sedation currently turned off. Patient is awake and following commands possible extubation today per critical care. Patient also received hemodialysis this will be the patient's third round of hemodialysis. Creatinine is trending down 4.44. Patient remains on Lasix drip. On 01/29/2019 patient remains in ICU intubated sedated maintained on mechanical ventilation, he had to CPAP trials yesterday, he is still maintained on hemodialysis, creatinine is elevated at 4.8 and BUN 89. On 01/30/2019 patient remains on mechanical ventilation in the intensive care unit. Patient is off sedation at this time and following commands. CPAP trial in place. Possible extubation today. Patient currently getting hemodialysis. Permanent hemodialysis catheter placed yesterday. Creatinine is trending down. Patient taken off insulin drip. on 01/31/2019 patient remains in intensive care unit on mechanical ventilation. Discussed case with critical care doctor Dr. Dominguez Yesterday. Patient unable to wean. we'll continue to monitor patient over the weekend and consider possible trach next week. Patient also received hemodialysis yesterday. On 02/01/2019 patient was seen and examined in the ICU he is intubated and maegan ntained on mechanical ventilation sedation is being stopped now for CPAP trial on 02/02/2019 patient was seen and examined in the ICU he has been extubated since yesterday, he is tolerating well maintained on oxygen via nasal cannula, he seems somnolent however he is opening his eyes and answering questions by nodding his head and trying to speak, there is no fever or chills no headache or dizziness no chest pain no shortness of breath he has occasional cough no nausea or vomiting no abdominal pain. on 02/03/2019 patient is currently sitting up in chair on nasal cannula. Patient does wake up and follow commands. Per nursing staff antibiotics due to ID is following per nursing will get a hold of infectious disease to further evaluate need for antibiotics. at this time patient denies chest pain or shortness of breath. Patient denies nausea vomiting or diarrhea. Patient denies any urinary burning or frequency. patient to receive hemodialysis today remains on IV Lasix Objective - Vital Signs Vital signs: Vital Signs Temp 98.1 F 02/03/19 00:00 Pulse 65 02/03/19 07:00 Resp 13 02/03/19 07:00 BP 128/70 02/03/19 06:00 Pulse Ox 97 02/03/19 07:00 Intake & Output 02/02/19 02/03/19 02/03/19 18:59 06:59 18:59 Intake Total 616 276 69 Output Total 460 620 275 Balance 156 -344 -206 Intake: IV 376 276 69 0.9 Normal Saline ( 36 36 9 pressure bag) at 3mL/hr Piperacillin-Tazobactam 3 100 20 .375 gm In Sodium Chloride 0.9% 100 ml @ 25 mls/hr IVPB Q12HR [place] Rx #:[id number] Sodium Chloride 0.9% 1, 240 220 60 000 ml @ 20 mls/hr IV . Q24H [place] Rx#:[id number] Tube Feeding 150 Other 90 Output: Urine 460 620 275 Other: Voiding Method Indwelling Catheter Indwelling Catheter Indwelling Catheter # Bowel Movements 1 ABP, PAP, CO, CI - Last Documented Arterial Blood Pressure 152/56 - Exam HEENT head normocephalic and atraumatic Neck is supple no JVD no goiter no lymphadenopathy Chest exam reveals diminished lung sounds, a few scattered rhonchi no wheezing Cardiac exam reveals regular heart sounds S1 and S2 no gallops no murmurs Abdomen is obese, soft nontender no organomegaly with normal bowel sounds Extremity right BKA. Dressing is clean dry and intact Neuro no gross focal neurological deficit. Asians alert and oriented. Patient sleepy but wakes up and follows commands - Labs CBC & Chem 7: 02/03/19 05:40 02/03/19 05:40 Labs: Abnormal Lab Results - Last 24 Hours (Table) 02/02/19 02/02/19 02/02/19 Range/Units 12:03 16:04 21:07 RBC (4.30-5.90) m/uL Hgb (13.0-17.5) gm/dL Hct (39.0-53.0) % ABG pO2 (83-108) mmHg ABG Total CO2 (19-24) mmol/L ABG O2 Saturation (94-97) % Carbon Dioxide (22-30) mmol/L BUN (9-20) mg/dL Creatinine (0.66-1.25) mg/dL Glucose (74-99) mg/dL POC Glucose (mg/dL) 166 H 142 H 143 H (75-99) mg/dL Albumin (3.5-5.0) g/dL 02/02/19 02/03/19 02/03/19 Range/Units 23:36 00:08 03:40 RBC (4.30-5.90) m/uL Hgb (13.0-17.5) gm/dL Hct (39.0-53.0) % ABG pO2 119 H (83-108) mmHg ABG Total CO2 25 H (19-24) mmol/L ABG O2 Saturation 98.5 H (94-97) % Carbon Dioxide (22-30) mmol/L BUN (9-20) mg/dL Creatinine (0.66-1.25) mg/dL Glucose (74-99) mg/dL POC Glucose (mg/dL) 139 H 152 H (75-99) mg/dL Albumin (3.5-5.0) g/dL 02/03/19 02/03/19 02/03/19 Range/Units 03:42 05:40 05:40 RBC 2.89 L (4.30-5.90) m/uL Hgb 8.5 L (13.0-17.5) gm/dL Hct 25.8 L (39.0-53.0) % ABG pO2 (83-108) mmHg ABG Total CO2 (19-24) mmol/L ABG O2 Saturation (94-97) % Carbon Dioxide 21 L (22-30) mmol/L BUN 47 H (9-20) mg/dL Creatinine 3.65 H (0.66-1.25) mg/dL Glucose 125 H (74-99) mg/dL POC Glucose (mg/dL) 124 H (75-99) mg/dL Albumin 2.9 L (3.5-5.0) g/dL Assessment and Plan Assessment: #1 gangrene involving the right fifth toe with surrounding cellulitis Status post amputation of fourth and fifth toe with Dr. Dietrich status post right BKA. Patient is currently postop day 4. Possible discussion of below knee amputation rather than attempt at possible revascularization. Arterial Doppler completed, ALMA of the right 0.79. #2 sepsis present on admission as evidenced by fever, leukocytosis, and elevated lactic acid. White blood cell improving down to 9.3. Infectious disease is following. she remains on Zosyn for IV antibiotics per nursing staff will get a hold of infectious disease to further assess need for antibiotics #3 acute hypoxic and hypercapnic respiratory failure with altered mental status changes secondary to severe sepsis. Patient was transferred to the intensive care unit and placed on mechanical ventilation. Patient is sedated on propofol . Per nursing staff patient is following commands . Vent things 50 FiO2, PEEP 5. 500 tidal volume, rate 18. Critical care services are following. continue weaning trials per critical care.patient has been successfully extubated on #4. Hypotension secondary to septic shock. Levophed currently off. Blood pressure has improved, systolic 130s to 150s. #5. Acute kidney injury secondary to ATN secondary to hypotension as well as vancomycin toxicity. Nephrology services are following. Ultrasound completed showing no evidence of hydronephrosis. Creatinine increasing to 4. 35 and bun 57. Per nephrology services maintain 0.9 normal saline at 50/ml, avoid nephrotoxins. Vancomycin and lisinopril have been discontinued. continue to monitor urine output closely. Status post hemodialysis per nephrology services. Patient currently maintained on Lasix drip per nephrology creatinine did trend down to 4.76. currently receiving hemodialysis. Permanent hemodialysis cathet er placed on 01/29/2019. patient to receive hemodialysis today 02/03/2019 #6. history of essential hypertension. Cardiology services following. EF 50- 55%. Per cardiology services no evidence of acute coronary syndrome at this time #7. insulin-dependent diabetes mellitus, with poor control due to noncompliance last hemoglobin A1c was 9.8 at this time will hold glipizide, Januvia and metformin, and cover was insulin to sliding scale will adjust medications as needed. Blood sugars have been in the 200s after episode of hypoglycemia. Patient currently on insulin drip for tight blood sugar control. Insulin drip has been DC'd. Patient started on sliding scale coverage #8. underlying history of diabetic complications of peripheral neuropathy and retinopathy. #9. poor compliance with medical management, patient had extensive counseling in the last year, his A1c was down to 7.1 in June however it was up to 9.8 again recently. #10 underlying history of hyperlipidemia maintained on atorvastatin, on hold. #11. Hypoglycemia. Home meds DC'd. Tube feedings have been initiated. Hypo glycemia has resolved #12. Suspected aspiration. Orogastric tube was coiled in the patient's mouth with tube feeds running. Tube was removed and replaced. Chest x-ray completed. Overall stable findings, no significant change from prior, bilateral small pleural effusions noted, CHF exacerbation versus fluid overload state. Repeat chest x-ray today per pulmonary. No acute changes made, no change in ABG. Infectious disease is following. DVT prophylaxis heparin. GI prophylaxis Protonix Critical care, vascular surgery, infectious disease, cardiology and nephrology services following I performed an examination of the patient and discussed their management with the Nurse Practitioner. I have reviewed the Nurse Practitioner's notes and agree with the documented findings and plan of care
--- NOTE | 2019-02-03 10:10 | CDI ---
Documentation Clarification Form Date: 02/03/2019 9:06:43 AM From: Renata Real RN, [facility] Phone: Admit Date: 01/15/2019 9:21:00 PM Patient Name: Refugio Saenz Visit Number: [id number] Discharge Date: ATTENTION: The Clinical Documentation Specialists (CDI) and [facility] Coding Staff appreciate your assistance in clarifying documentation. Please respond to the clarification below the line at the bottom and electronically sign. The CDI & [facility] Coding staff will review the response and follow-up if needed. Please note: Queries are made part of the Legal Health Record. If you have any questions, please contact the author of this message via ITS. Dr. Dillon Granger A diagnosis of anemia lacks specificity to accurately reflect your patients severity of condition and clarification is needed. History/Risk Factors: Chronic kidney disease stage III, Diabetes mellitus, Hypertension, Right foot wound, Clinical indicators: 68-year-old male present with pain in the right foot, he was evaluated in the emergency room and diagnosed with gangrene, cellulitis and sepsis. On admission his hemoglobin was 14.8, Hematocrit 46.5. 02/03/19 Hemoglobin 8.5, Hematocrit 25.8. 01/22/19 Procedure: Right below-knee amputation (estimated blood loss 150 ml) 01/26/19 Nephrology( Dr. Le renal function continue to worsen, BUN 84, CR 5.22, start hemodialysis today 01/30/19 Dr. Le/Nephrology progress note and subsequent progress notes anemia multifactorial, no overt signs of active bleeding. Treatment: monitoring CBC Aranesp 60 mcg SQ Q 7 D In order to capture the severity of condition, please clarify the type of anemia and etiology if known: Acute blood loss anemia Acute on chronic blood loss anemia Chronic blood loss anemia Anemia of chronic kidney disease Unable to determine Other, please specify (Last Revision: November 2016) ___Anemia of chronic Kidney disease MTDD
[2019-02-03 12:01] LABS: Glucose,Whole Blood 118 mg/dL (75-99)
--- NOTE | 2019-02-03 13:45 | P.PN ---
Subjective Progress Note Date: 02/03/19 Patient seen and evaluated, sitting up in recliner. Patient has been extubated, appears to be mildly confused. Patient has a rigid dressing with stump investigation division captain right lower extremity. The nurse reports dressing was changed yesterday evening, without any noted changes. Objective - Vital Signs Vital signs: Vital Signs Temp 98.1 F 02/03/19 00:00 Pulse 65 02/03/19 11:00 Resp 27 H 02/03/19 11:00 BP 133/55 02/03/19 11:00 Pulse Ox 98 02/03/19 11:00 Intake & Output 02/02/19 02/03/19 02/03/19 18:59 06:59 18:59 Intake Total 616 276 138 Output Total 460 620 550 Balance 156 -344 -412 Weight 108.8 kg Intake: IV 376 276 138 0.9 Normal Saline ( 36 36 18 pressure bag) at 3mL/hr Piperacillin-Tazobactam 3 100 20 .375 gm In Sodium Chloride 0.9% 100 ml @ 25 mls/hr IVPB Q12HR [place] Rx #:[id number] Sodium Chloride 0.9% 1, 240 220 120 000 ml @ 20 mls/hr IV . Q24H [place] Rx#:[id number] Tube Feeding 150 Other 90 Output: Urine 460 620 550 Other: Voiding Method Indwelling Catheter Indwelling Catheter Indwelling Catheter # Bowel Movements 1 ABP, PAP, CO, CI - Last Documented Arterial Blood Pressure 143/42 - Exam no acute distress, sitting up in recliner. Heart regular rate and rhythm Lungs sounds coarse otherwise clear to auscultation Abdomen soft, nontender Extremities: Right lower extremity amputation with no edema, rigid dressing and stump investigation division captain in place. - Labs CBC & Chem 7: 02/03/19 05:40 02/03/19 05:40 Labs: Abnormal Lab Results - Last 24 Hours (Table) 02/02/19 02/02/19 02/02/19 Range/Units 16:04 21:07 23:36 RBC (4.30-5.90) m/uL Hgb (13.0-17.5) gm/dL Hct (39.0-53.0) % ABG pO2 (83-108) mmHg ABG Total CO2 (19-24) mmol/L ABG O2 Saturation (94-97) % Carbon Dioxide (22-30) mmol/L BUN (9-20) mg/dL Creatinine (0.66-1.25) mg/dL Glucose (74-99) mg/dL POC Glucose (mg/dL) 142 H 143 H 139 H (75-99) mg/dL Albumin (3.5-5.0) g/dL 02/03/19 02/03/19 02/03/19 Range/Units 00:08 03:40 03:42 RBC (4.30-5.90) m/uL Hgb (13.0-17.5) gm/dL Hct (39.0-53.0) % ABG pO2 119 H (83-108) mmHg ABG Total CO2 25 H (19-24) mmol/L ABG O2 Saturation 98.5 H (94-97) % Carbon Dioxide (22-30) mmol/L BUN (9-20) mg/dL Creatinine (0.66-1.25) mg/dL Glucose (74-99) mg/dL POC Glucose (mg/dL) 152 H 124 H (75-99) mg/dL Albumin (3.5-5.0) g/dL 02/03/19 02/03/19 02/03/19 Range/Units 05:40 05:40 11:59 RBC 2.89 L (4.30-5.90) m/uL Hgb 8.5 L (13.0-17.5) gm/dL Hct 25.8 L (39.0-53.0) % ABG pO2 (83-108) mmHg ABG Total CO2 (19-24) mmol/L ABG O2 Saturation (94-97) % Carbon Dioxide 21 L (22-30) mmol/L BUN 47 H (9-20) mg/dL Creatinine 3.65 H (0.66-1.25) mg/dL Glucose 125 H (74-99) mg/dL POC Glucose (mg/dL) 118 H (75-99) mg/dL Albumin 2.9 L (3.5-5.0) g/dL Assessment and Plan Assessment: Status post right below the knee amputation for wet gangrene, inability to wean from ventilator Status post right foot fourth and fifth toe amputation Acute kidney failure, patient on hemodialysis wet gangrene right fifth toe uncontrolled type 2 diabetes previous amputation for infected gangrene toe on the left foot hyperlipidemia hypertension previous [place] Plan: Continue supportive care per ICU. Physical therapy The above dictated assessment and findings were discussed with Dr. Bustillos. The impression and plan of care have been directed as dictated.
[2019-02-03] MEDS: FLUoxetine HCL 20 MG CAP PO SCH (14:06)
[2019-02-03] MEDS: GABAPENTIN 100 MG CAP PO SCH ×3 (14:07→22:21)
--- NOTE | 2019-02-03 14:27 | P.PN ---
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, poor compliance, dyslipidemia, dehydration 02/03/2019, patient seen eval examined during the rounds labs reviewed medications reviewed care plan discussed with the patient and staff at length he is doing well on 2 L oxygen, severe degree of generalized weakness is present though, patient has using BiPAP machine each night and when necessary during the day, patient is undergoing hemodialysis plan is to remove 2-1/2 L, so far he has been tolerating dialysis very well, February 02 2019, patient seen eval examined during the rounds labs reviewed medications reviewed radiographic studies reviewed as well, patient has been placed on CPAP of 5 pressure support 18 has been doing very well with that arterial blood gas in weaning parameters are reviewed even though patient appears to be in weeks' side but feel that patient can be successfully extubated proceeded with extubation, patient has been placed on 4 L nasal cannula postextubation he has a weak cough I have instructed staff to get him out of the bed with deep breathing and cough, patient will require BiPAP H night and when necessary during the day setting have been adjusted, continue Lasix when necessary seems to be making urine patient is due for dialysis tomorrow as well, critical care time spent 35 minutes 02/01/2019, patient seen eval examined during the rounds Asians propofol is slowly being titrated down, patient is undergoing hemodialysis so far 1 L of fluid has been removed one hour dialysis still left, one and half liter to be removed as well patient tolerated the procedure very well, labs reviewed medications reviewed x-ray reviewed as well once patient is done with the dialysis will put patient on CPAP and pressure support if tolerated very well then consider weaning and extubation 01/31/2019, protocol has been discontinued patient is still somnolent but does respond to physical stimuli patient will be placed on CPAP and pressure support once a relatively more awake will continue the weaning trials as tolerated patient is not due for dialysis today the x-ray reviewed labs reviewed as, chest x-ray continued to show evidence of fluid overload right-sided dialysis catheter is stable, hemoglobin stable at 7.9, the biopsy in normal limit, arterial blood gases shows resolution of severe metabolic acidosis, BUN/creatinine improved to 54 and 3.42, sugar is slightly elevated patient has been getting insulin sliding scale and as per protocol 01/30/2019, patient seen elizabeth examined during the rounds labs reviewed medications reviewed care plan discussed with the staff and primary service at length patient has a CPAP pressure support trial today unable to tolerate for longer period time just lasted for 15 minutes started having desaturation and was extremely short of breath, switch back to assist control mode, patient however has a successful dialysis about 2 L of fluid has been removed patient will get another dialysis trial tomorrow, labs reviewed radiographic studies reviewed, x-ray still showing fluid overload changes no significant change has been notedAmmann patient also underwent dialysis catheter placement, we'll continue CPAP pressure support trial as the fluid has been removed with the dialysis, if unsuccessful then consideration of trach and PEG will be entertained early next week, his sugars are better controlled his been switched from insulin drip to sliding scale insulin with twice a day dose 01/28/2019 Pt seen and examined care plan reviewed during AM rounds had trouble d dialysis due to catheter clogging, renal fx slightly better, cxr not much changed, ABG post cpap/ps suggestive of mild resp acidosis and predominantly Metabolic acidosis, feel that pt would require at least 2-3 more cycles of dialysis before successfully take him of of Vent, would recommend daily dialysis 01/27/2019, patient seen elizabeth examined during the rounds patient is due for dialysis today, remains on full vent setting but however undergoing CPAP pressure support trial with 5 and 10 tolerating very well, per support will be decreased to 5, patient is due for another dialysis later on today, tomorrow will do the CPAP and pressure support and check a blood gas afterwards if does well then possibly extubate, chest x-ray continue show bilateral basilar atelectasis but overall they remained stable labs reviewed medications reviewed care plan discussed with the respiratory therapist and staff reporter at length critical care time spent 35 minutes 01/26/2019, patient seen elizabeth examined during the rounds labs reviewed medications reviewed, patient has been on Lasix drip 10 mg an hour also on propofol drip 10 mcg, patient had a hemodialysis done here earlier today with intent to remove the fluid, patient will get another hemodialysis tomorrow as well, has placed patient on CPAP of 5 pressure support of 10 is spontaneously breathing the rate is about 16-18 and tidal volume 350-400 range, extensive amount of secretions are present still, patient is not ready not ready for ex tubation but however they're indeed ready for weaning would recommend continued to do hemodialysis on a daily basis for at least 3 or 4 days so that volume overload can be dealt with, right cell count is 12,000 and hemoglobin and hematocrit remained stable arterial blood gas reviewed still have significant metabolic acidosis, renal function continued decline progressively BUN and creatinine up to 84 and 5.2, remains on Zosyn, chest x-ray as above noted to have worsening changes due to fluid overload, culture not growing anything, insulin drip is on sugars better controlled now 01/24/2019, patient seen eval reexamined during the rounds critical care time 35 minutes, patient has a weaning attempt with CPAP and pressure support but was not completed as patient is due for hemodialysis catheter placement in right femoral vein the renal service thinking about hemodialysis tomorrow breathing remains stable patient remains on assist control rate of 18 FiO2 of 50% 5 of PEEP, and renal function continued to deteriorate gradually being output slowly declining 01/23/2019, patient seen eval examined during the rounds labs reviewed medications reviewed care plan discussed with the staff at length and had a short weaning attempt and a sedation holiday with which he tolerated for short period of time then becomes tachypneic put back on respirator fit. We'll patient has been diuresing fairly well has been negative for the first time, urine output of 30-40 mL an hour. BUN/creatinine remains stable, patient is postop day #1 of the BKA, chest x-ray from today reviewed findings are most lynn ggestive of fluid overload less likely to be pneumonia, the ET tube and central line and NG tube was stable, white cell count is 13,000 arterial blood gases remained stable, BUN/creatinine gradually going up is 60 and 4.8 to, sugar is running on the higher side last check sugar was over 260 patient is being started on insulin drip 01/21/2019, patient seen and evaluated examined during the rounds labs reviewed medications reviewed, patient the remains on sedation with propofol mildly sedated he does wake up follow simple commands and munira -1-2, he remains on IV fluids gently being rehydrated 50 mL an hour to feed is being given this morning patient noted to have a tube coiling in the mouth as He is to have pulled out late morning hours, the need to be has been placed position has been confirmed chest x-ray continued to show for evidence of fluid overload and this should edema along with possible infiltrate, he remains on assist control rate of 18 and tidal volume of 505 of PEEP and oxygen is 50% he is +1.2 L since morning, care plan discussed with nephrology as well as the vascular surgery, as his BUN and creatinine continued to go up creatinine is 5.1 in spite of good adequate urine output, patient continue on broad-spectrum antibiotic when setting remains stable respiratory secretions are still thick tenacious and appears to be improving slowly, blood cultures and sputum culture has been negative, need to make eyes and nose on the negative side as well as would like to see been function improving before consideration of weaning that anticipate will take another 24-48 hours 01/20/2019, patient seen eval examined during the rounds and labs reviewed medications reviewed critical care time spent 35 minutes, patient remains on assist control rate 18 and tidal volume of 500 along with PEEP of 5, patient is sedated with propofol drip but doesn't respond to simple stimuli, patient has been making good amount of urine levo fed is not require S patient is hemodynamically stable urine output has improved to 50-60 mL an hour post Lasix which is advised by nephrology service urine output has improved, patient has been tolerating tube feed well given that volume overload situation due to hypotension and was given fluid for resuscitation patient gently being diuresed, she he remains on broad-spectrum antibiotic sliding scale insulin labs reviewed medications reviewed care plan discussed with the staff and 2 brothers at bedside at length, chest x-ray from today reviewed bilateral atelectasis and fluid overload is present overall suggestive of more of his CHF and pneumonia, white cell count is stable, arterial blood gases improved, BUN/creatinine continue to go up 56 and 4.17, sugars have been stabilized 01/19/2019, patient seen and evaluated examined in the ICU intubated on full ventilator support, patient had gradual loss of consciousness has been more lethargic arterial blood gases were checked shows hypercapnic and hypoxic respiratory failure was intubated in the ICU, patient has been placed on propofol he was volume depleted depleted aggressive fluid resuscitation were performed, is still require levo fed intermittently, patient was also noted to be hypoglycemic 7030 insulin and other oral hypoglycemic agents were discontinued, ultrasound of the abdomen has been performed which is reviewed no obvious hydronephrosis seen, patient has decreased urine output along with rising BUN/creatinine appeared to be acute tubular necrosis, patient also requir ing intermittent bolus of D10 for hypoglycemia, wounds has been evaluated by vascular surgery noted recommendation, patient has very poor venous access, will put a central line in, critical care time 45 minutes during procedure, due to altered mental status CT of the head was performed which was negative 01/18/2019, patient seen eval examined while covering for Dr. Granger, waking up this morning slightly slow to respond but not confused, breathing comfortably denies any chest pain labs reviewed today patient has been evaluated by Dr. Bassett, white cell count is coming down to 19,000, lactic acid level is normalized, patient has been on broad-spectrum antibiotics with vascular surgery on board Objective - Vital Signs Vital signs: Vital Signs Temp 97.5 F L 02/03/19 12:00 Pulse 80 02/03/19 14:00 Resp 26 H 02/03/19 14:00 BP 140/59 02/03/19 14:00 Pulse Ox 97 02/03/19 14:00 Intake & Output 02/02/19 02/03/19 02/03/19 18:59 06:59 18:59 Intake Total 616 276 184 Output Total 460 620 630 Balance 156 -344 -446 Weight 110.6 kg 108.8 kg Intake: IV 376 276 184 0.9 Normal Saline ( 36 36 24 pressure bag) at 3mL/hr Piperacillin-Tazobactam 3 100 20 .375 gm In Sodium Chloride 0.9% 100 ml @ 25 mls/hr IVPB Q12HR [place] Rx #:[id number] Sodium Chloride 0.9% 1, 240 220 160 000 ml @ 20 mls/hr IV . Q24H [place] Rx#:[id number] Tube Feeding 150 Other 90 Output: Urine 460 620 630 Other: Voiding Method Indwelling Catheter Indwelling Catheter Indwelling Catheter # Bowel Movements 1 ABP, PAP, CO, CI - Last Documented Arterial Blood Pressure 149/42 - Exam Intubated on full vent support on propofol getting IV fluids normal saline , assessed pre-and post extubation HEENT head normocephalic and atraumatic Neck is supple no JVD no goiter no lymphadenopathy Chest exam reveals a few scattered rhonchi no wheezing Cardiac exam reveals regular heart sounds S1 and S2 no gallops no murmurs Abdomen is soft nontender no organomegaly with normal bowel sounds Extremity exam status post right BKA Neuro no gross focal neurological deficit, patient has anisocoria - Labs CBC & Chem 7: 02/03/19 05:40 02/03/19 05:40 Labs: Abnormal Lab Results - Last 24 Hours (Table) 02/02/19 02/02/19 02/02/19 Range/Units 16:04 21:07 23:36 RBC (4.30-5.90) m/uL Hgb (13.0-17.5) gm/dL Hct (39.0-53.0) % ABG pO2 (83-108) mmHg ABG Total CO2 (19-24) mmol/L ABG O2 Saturation (94-97) % Carbon Dioxide (22-30) mmol/L BUN (9-20) mg/dL Creatinine (0.66-1.25) mg/dL Glucose (74-99) mg/dL POC Glucose (mg/dL) 142 H 143 H 139 H (75-99) mg/dL Albumin (3.5-5.0) g/dL 02/03/19 02/03/19 02/03/19 Range/Units 00:08 03:40 03:42 RBC (4.30-5.90) m/uL Hgb (13.0-17.5) gm/dL Hct (39.0-53.0) % ABG pO2 119 H (83-108) mmHg ABG Total CO2 25 H (19-24) mmol/L ABG O2 Saturation 98.5 H (94-97) % Carbon Dioxide (22-30) mmol/L BUN (9-20) mg/dL Creatinine (0.66-1.25) mg/dL Glucose (74-99) mg/dL POC Glucose (mg/dL) 152 H 124 H (75-99) mg/dL Albumin (3.5-5.0) g/dL 02/03/19 02/03/19 02/03/19 Range/Units 05:40 05:40 11:59 RBC 2.89 L (4.30-5.90) m/uL Hgb 8.5 L (13.0-17.5) gm/dL Hct 25.8 L (39.0-53.0) % ABG pO2 (83-108) mmHg ABG Total CO2 (19-24) mmol/L ABG O2 Saturation (94-97) % Carbon Dioxide 21 L (22-30) mmol/L BUN 47 H (9-20) mg/dL Creatinine 3.65 H (0.66-1.25) mg/dL Glucose 125 H (74-99) mg/dL POC Glucose (mg/dL) 118 H (75-99) mg/dL Albumin 2.9 L (3.5-5.0) g/dL Assessment and Plan Assessment: Altered mental status Hypoxic and hypercapnic respiratory failure Acute on chronic renal failure Bilateral atelectasis and possible aspiration pneumonia Fluid overload and acute interstitial edema Severe hyperglycemia 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 Sepsis and septic shock Insulin-dependent diabetes mellitus poorly controlled, being started on insulin drip Hypertension hypertensive cardiovascular disease Dyslipidemia Plan: successfully extubated, doing well on 2 L nasal cannula Will use BiPAP each night and when necessary during the day continue sliding scale insulin Monitor renal functions closely once patient is negative and renal function improving we will initiate the weaning processs chest PT and physical therapy Up on chair increase activity as tolerated Continue gentle diuresis continue dialysis as planned Broad-spectrum antibiotics Critical care time 35 minutes Time with Patient: Greater than 30
[2019-02-03 17:11] LABS: Glucose,Whole Blood 147 mg/dL (75-99)
[2019-02-03] MEDS: SODIUM CHLORIDE 0.9% 1,000 ML IV SCH ×2 (17:29→22:48)
--- NOTE | 2019-02-03 20:15 | P.PN ---
Subjective Progress Note Date: 02/03/19 60-year-old male who has multiple medical troubles that includes peripheral vascular disease, coronary artery disease and diabetes mellitus type 2. Is related the patient was doing relatively well this year which point in time he was to be compliant to his medication regimen. However he appears by the fall was having difficulties and stopped his insulin treatments. His blood glucoses increased greatly and his hemoglobin A1c went to nearly 10. The patient now presents to Hospital of evidence of gangrenous changes to his fourth and fifth toes of the right foot. 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 The patient is directly postoperative period he is modestly comfortable but still with some effects of anesthesia. He relates he was not having much pain at home and it was because the areas were worsening and blackening that he sought care. 01/20/2019 patient remains intubated sedated with mechanical ventilation, failed a weanig attempt due to tachypneia foot remains with drainage but is not bleeding. 01/21/2019 patient remains in intensive care unit intubated sedated and mechanically ventilated with no further progression for weaning. He is followed by nephrology he has some worsening renal failure there is not some contemplation for possible hemodialysis. 01/27/2019 patient had a good weaning trial today and is doing well with feeds, loose stool has improved and urine output is low. Has tolerated the hemodialysis and has had adequate fluid removal. Further weaning planned in am. 02/03/2019 patient has improved, extubated and is tolerating dialysis well, off of antibiotics Objective - Vital Signs Vital signs: Vital Signs Temp 98.2 F 02/03/19 16:00 Pulse 81 02/03/19 18:00 Resp 27 H 02/03/19 18:00 BP 115/55 02/03/19 18:00 Pulse Ox 97 02/03/19 18:00 Intake & Output 02/03/19 02/03/19 02/04/19 06:59 18:59 06:59 Intake Total 276 299 Output Total 620 3280 Balance -344 -2981 Weight 110.6 kg 108.8 kg Intake: IV 276 299 0.9 Normal Saline ( 36 39 pressure bag) at 3mL/hr Piperacillin-Tazobactam 3 20 .375 gm In Sodium Chloride 0.9% 100 ml @ 25 mls/hr IVPB Q12HR [facility] Rx #:[id number] Sodium Chloride 0.9% 1, 220 260 000 ml @ 20 mls/hr IV . Q24H [facility] Rx#:[id number] Output: Urine 620 780 Hemodialysis 2500 Other: Voiding Method Indwelling Catheter Indwelling Catheter # Bowel Movements 1 ABP, PAP, CO, CI - Last Documented Arterial Blood Pressure 149/42 - Exam The patient is comfortable HEENT: Anicteric conjunctiva are pink and moist nasal mucosa grossly intact without significant lesions, there is no thrush noted around the ET tube Neck: The neck is supple without significant lymphadenopathy or thyromegaly. Lungs: The symmetrical bilateral air entry reveal some basilar crackles Heart: Irregular soft S4 no murmur Abdomen: Obese, Positive bowel sounds soft and nontender without palpable masses or organomegaly. There was no guarding or rebound. Extremities: The upper extremities without acute lesions. The left foot has no acute open ulcerations. the right BKA site is intact Neuro: The patient is arousable - Labs CBC & Chem 7: 02/03/19 05:40 02/03/19 05:40 Labs: Abnormal Lab Results - Last 24 Hours (Table) 02/02/19 02/02/19 02/03/19 Range/Units 21:07 23:36 00:08 RBC (4.30-5.90) m/uL Hgb (13.0-17.5) gm/dL Hct (39.0-53.0) % ABG pO2 (83-108) mmHg ABG Total CO2 (19-24) mmol/L ABG O2 Saturation (94-97) % Carbon Dioxide (22-30) mmol/L BUN (9-20) mg/dL Creatinine (0.66-1.25) mg/dL Glucose (74-99) mg/dL POC Glucose (mg/dL) 143 H 139 H 152 H (75-99) mg/dL Albumin (3.5-5.0) g/dL 02/03/19 02/03/19 02/03/19 Range/Units 03:40 03:42 05:40 RBC 2.89 L (4.30-5.90) m/uL Hgb 8.5 L (13.0-17.5) gm/dL Hct 25.8 L (39.0-53.0) % ABG pO2 119 H (83-108) mmHg ABG Total CO2 25 H (19-24) mmol/L ABG O2 Saturation 98.5 H (94-97) % Carbon Dioxide (22-30) mmol/L BUN (9-20) mg/dL Creatinine (0.66-1.25) mg/dL Glucose (74-99) mg/dL POC Glucose (mg/dL) 124 H (75-99) mg/dL Albumin (3.5-5.0) g/dL 02/03/19 02/03/19 02/03/19 Range/Units 05:40 11:59 17:09 RBC (4.30-5.90) m/uL Hgb (13.0-17.5) gm/dL Hct (39.0-53.0) % ABG pO2 (83-108) mmHg ABG Total CO2 (19-24) mmol/L ABG O2 Saturation (94-97) % Carbon Dioxide 21 L (22-30) mmol/L BUN 47 H (9-20) mg/dL Creatinine 3.65 H (0.66-1.25) mg/dL Glucose 125 H (74-99) mg/dL POC Glucose (mg/dL) 118 H 147 H (75-99) mg/dL Albumin 2.9 L (3.5-5.0) g/dL Laboratory Results WBC 7.6 k/uL (3.8-10.6) 02/03/19 05:40 RBC 2.89 m/uL (4.30-5.90) L 02/03/19 05:40 Hgb 8.5 gm/dL (13.0-17.5) L 02/03/19 05:40 Hct 25.8 % (39.0-53.0) L 02/03/19 05:40 MCV 89.3 fL (80.0-100.0) 02/03/19 05:40 MCH 29.4 pg (25.0-35.0) 02/03/19 05:40 MCHC 33.0 g/dL (31.0-37.0) 02/03/19 05:40 RDW 13.1 % (11.5-15.5) 02/03/19 05:40 Plt Count 198 k/uL (150-450) 02/03/19 05:40 Neutrophils % 70 % 02/03/19 05:40 Lymphocytes % 13 % 02/03/19 05:40 Monocytes % 7 % 02/03/19 05:40 Eosinophils % 6 % 02/03/19 05:40 Basophils % 1 % 02/03/19 05:40 Neutrophils # 5.3 k/uL (1.3-7.7) 02/03/19 05:40 Lymphocytes # 1.0 k/uL (1.0-4.8) 02/03/19 05:40 Monocytes # 0.5 k/uL (0-1.0) 02/03/19 05:40 Eosinophils # 0.4 k/uL (0-0.7) 02/03/19 05:40 Basophils # 0.1 k/uL (0-0.2) 02/03/19 05:40 Hypochromasia Slight 01/26/19 04:40 Sample Site orange 02/03/19 03:40 ABG pH 7.35 (7.35-7.45) 02/03/19 03:40 ABG pCO2 43 mmHg (35-45) 02/03/19 03:40 ABG pO2 119 mmHg (83-108) H 02/03/19 03:40 ABG HCO3 24 mmol/L (21-25) 02/03/19 03:40 ABG Total CO2 25 mmol/L (19-24) H 02/03/19 03:40 ABG O2 Saturation 98.5 % (94-97) H 02/03/19 03:40 ABG Base Excess -1.6 mmol/L 02/03/19 03:40 Jd Test Yes 02/03/19 03:40 ABG Lactic Acid 0.7 mmol/L (0.5-1.6) 01/19/19 04:15 FiO2 40 % 02/03/19 03:40 Sodium 140 mmol/L (137-145) 02/03/19 05:40 Potassium 3.7 mmol/L (3.5-5.1) 02/03/19 05:40 Chloride 105 mmol/L (98-107) 02/03/19 05:40 Carbon Dioxide 21 mmol/L (22-30) L 02/03/19 05:40 Anion Gap 14 mmol/L 02/03/19 05:40 BUN 47 mg/dL (9-20) H 02/03/19 05:40 Creatinine 3.65 mg/dL (0.66-1.25) H 02/03/19 05:40 Est GFR (CKD-EPI)AfAm 19 (>60 ml/min/1.73 sqM) 02/03/19 05:40 Est GFR (CKD-EPI)NonAf 16 (>60 ml/min/1.73 sqM) 02/03/19 05:40 Glucose 125 mg/dL (74-99) H 02/03/19 05:40 POC Glucose (mg/dL) 147 mg/dL (75-99) H 02/03/19 17:09 POC Glu Planisher William Lopez 02/03/19 17:09 Lactic Ac Sepsis Rflx Y 01/16/19 01:23 Plasma Lactic Acid Jose Carlos 1.4 mmol/L (0.7-2.0) 01/16/19 05:28 Calcium 8.4 mg/dL (8.4-10.2) 02/03/19 05:40 Phosphorus 8.6 mg/dL (2.5-4.5) H 01/30/19 04:00 Magnesium 2.0 mg/dL (1.6-2.3) 01/23/19 04:10 Total Bilirubin 0.5 mg/dL (0.2-1.3) 02/03/19 05:40 AST 29 U/L (17-59) 02/03/19 05:40 ALT 19 U/L (4-49) 02/03/19 05:40 Alkaline Phosphatase 51 U/L (38-126) 02/03/19 05:40 Total Protein 6.4 g/dL (6.3-8.2) 02/03/19 05:40 Albumin 2.9 g/dL (3.5-5.0) L 02/03/19 05:40 Urine Color Yellow 01/18/19 17:04 Urine Appearance Cloudy (Clear) 01/18/19 17:04 Urine pH 5.0 (5.0-8.0) 01/18/19 17:04 Ur Specific [place] 1.018 (1.001-1.035) 01/18/19 17:04 Urine Protein 1+ (Negative) H 01/18/19 17:04 Urine Glucose (UA) 1+ (Negative) H 01/18/19 17:04 Urine Ketones Negative (Negative) 01/18/19 17:04 Urine Blood Negative (Negative) 01/18/19 17:04 Urine Nitrite Negative (Negative) 01/18/19 17:04 Urine Bilirubin Negative (Negative) 01/18/19 17:04 Urine Urobilinogen <2.0 mg/dL (<2.0) 01/18/19 17:04 Ur Leukocyte Esterase Negative (Negative) 01/18/19 17:04 Urine WBC 2 /hpf (0-5) 01/18/19 17:04 Amorphous Sediment Few /hpf (None) H 01/18/19 17:04 Random Vancomycin 20.6 ug/mL 01/22/19 04:20 C. difficile (EIA) Intrp Negative (Negative) 01/23/19 Unknown Hepatitis A IgM Ab Non-Reactive (Non-Reactive) 01/31/19 04:59 Hep Bs Antigen Reactive (Non-Reactive) H 01/26/19 04:40 Hep Bs Ag Confirmation Reactive 01/26/19 04:40 Hep Bs Antibody Non-Reactive (Non-Reactive) 01/26/19 04:40 Hep Bs Antibody, Quant 3.5 mIU/mL 01/26/19 04:40 Hep B Core Total Ab Reactive (Non-Reactive) H 01/31/19 04:59 Hep B Core IgM Ab Non-Reactive (Non-Reactive) 01/31/19 04:59 Hep C IgG Ab Non-Reactive (Non-Reactive) 01/31/19 04:59 Microbiology 01/19/19 14:20 Blood Blood Culture - Final No Growth after 144 hours 01/15/19 20:20 Blood Blood Culture - Final No Growth after 144 hours 01/17/19 09:20 Toe - Right Fifth Anaerobic Culture - Final Anaerobic Gm Negative Bacilli Anaerobic Gm Negative Bacilli#2 Anaerobic Gm Negative Bacilli#3 Anaerobic Gm Negative Bacilli#4 01/17/19 09:20 Toe - Right Fifth Gram Stain - Final 01/17/19 09:20 Toe - Right Fifth Wound Culture - Final Morganella morganii Enterococcus avium Beta Hemolytic Streptococcus F 01/18/19 15:47 Sputum Gram Stain - Final 01/18/19 15:47 Sputum Sputum Culture - Final Ирина albicans Assessment and Plan (1) Gangrene Narrative/Plan: 68-year-old male with long-standing history of multiple medical troubles that includes diabetes mellitus type 2 presents to hospital with evidence of what appears to be gangrenous changes to the right foot fifth toe. Because interchanged and was apparently and with some drainage and odor he sought care. He has not been seen by the vascular surgeon is undergone the rehabilitation to toes 4 and 5. However appears to be other ulceration and he may require further more extensive surgical intervention the next 48 hours. Cultures are pending. Extensive antibiotic therapy with Zosyn and vancomycin is being utilized at this point in time for the diabetic foot ulceration until there is further data. Once surgical interventions are completed we'll then be able to determine a course of antibiotic therapy at discharge. Unclear if he can care for himself in the home setting. Depending on the findings he may be a good candidate for negative pressure therapy. He would be ideal candidate follow-up with the wound healing Center to determine if outpatient hyperbaric oxygen therapy could be utilized for limb salvage. 01/20/2019 the patient remains in intensive care unit intubated sedated and mechanically ventilated and did not progress well with the sedation holiday today and weaning trial. He is currently on vancomycin and Zosyn for the polymicrobial infection that was found exam the surgical debridement. I have the pleasure of discussing the case with the vascular surgeon and patient has no improvement in the next day and continues to fail ventilation and has no further improvement within be a candidate for an amputation to try to allow improvement of his underlying status which greater than allow progression to extubation future. Antibiotic therapy continues with Zosyn with the polymicrobial infection found at the time of the debridement. 01/21/2019 the patient is having some worsening of his status and that his renal failure worsening and there is no contemplation of possible hemodialysis. The patient has progressive ongoing infection to the right foot and is on antibiotic therapy for the polymicrobial infection. Over the pleasure of discussing the case with the vascular surgeon and we'll reevaluate for potential inspissation the near future. The goal of amputation is to remove the source of infection which would possibly allow some improvement of his status. Antibiotic therapy continues with Zosyn at this time. Prognosis remains poor. 01/27/2018 the patient is undergone amputation and this is also improvement of his status. The patient did develop aggressive renal failure and is now receiving hemodialysis. There is been improvement and with ultrafiltration they have been able to remove significant amounts of fluid. This is all out his respiratory status to improve. Weaning trial was adequate today. Appears that we try to get tomorrow and then will determine the possibility of extubation. If extubated tomorrow with implant and discontinuing his antibiotic therapy which is currently with Zosyn with concerns to an aspiration event. 02/03/2019 patient is improved, extubated and is being prepared for transfer. Antibiotic therapy has completed and does not require antibiotics at this time. Current Visit: Yes Status: Acute Code(s): I96 - GANGRENE, NOT ELSEWHERE CLASSIFIED SNOMED Code(s): 770339960 (2) Hyperglycemia Current Visit: Yes Status: Acute Code(s): R73.9 - HYPERGLYCEMIA, UNSPECIFIED SNOMED Code(s): 59877848 (3) Lower extremity cellulitis Current Visit: No Status: Acute Code(s): L03.119 - CELLULITIS OF UNSPECIFIED PART OF LIMB SNOMED Code(s): 795429009
[2019-02-03 20:31] LABS: Glucose,Whole Blood 145 mg/dL (75-99)
[2019-02-03] MEDS: LATANOPROST 0.005% OPHTH DROPS 2.5 ML BTL LEFT EYE SCH (22:22)
[2019-02-04] MEDS: MORPHINE SULFATE 2 MG/ML SYRINGE IVP PRN ×3 (02:47→13:55)
[2019-02-04] MEDS: SODIUM CHLORIDE 0.9% 1,000 ML IV SCH ×3 (05:23→23:12)
[2019-02-04 05:27] LABS: Basophils # (A) 0.1 k/uL (0-0.2); Basophils % (A) 1 %; Eosinophils # (A) 0.4 k/uL (0-0.7); Eosinophils % (A) 6 %; HGB 8.8 gm/dL (13.0-17.5); Hypochromasia Slight; Lymphocytes # (A) 0.8 k/uL (1.0-4.8); Lymphocytes % (A) 12 %; MCHC 32.7 g/dL (31.0-37.0); MCV 91.6 fL (80.0-100.0); Mean Platelet Volume 9.2; Monocytes # (A) 0.5 k/uL (0-1.0); Monocytes % (A) 7 %; Neutrophils # (A) 4.7 k/uL (1.3-7.7); Neutrophils % (A) 70 %; Platelet Count 220 k/uL (150-450); RBC 2.95 m/uL (4.30-5.90); RDW 13.2 % (11.5-15.5); WBC 6.7 k/uL (3.8-10.6)
[2019-02-04 05:40] LABS: Calcium 8.2 mg/dL (8.4-10.2); Phosphorus 6.1 mg/dL (2.5-4.5); Total Bilirubin 0.5 mg/dL (0.2-1.3); Total Protein 6.6 g/dL (6.3-8.2)
[2019-02-04 06:57] LABS: Glucose,Whole Blood 145 mg/dL (75-99)
[2019-02-04] MEDS: INSULIN ASPART (NovoLOG) 100 UNIT/ML VIAL SQ SCH ×4 (07:10→20:38)
[2019-02-04] MEDS: FUROSEMIDE 10 MG/ML 10 ML VIAL IV SCH ×3 (09:06→23:08)
[2019-02-04] MEDS: PANTOPRAZOLE 40 MG/10 ML VIAL IV SCH (09:06)
[2019-02-04] MEDS: HEPARIN SODIUM,PORCINE 5,000 UNIT/ML 1 ML VIAL SQ SCH ×3 (09:07→23:12)
[2019-02-04] MEDS: FLUoxetine HCL 20 MG CAP PO SCH (09:07)
[2019-02-04] MEDS: GABAPENTIN 100 MG CAP PO SCH ×3 (09:07→20:44)
[2019-02-04] MEDS: DORZOLAMIDE HCL 2% DROPS 10 ML BTL LEFT EYE SCH ×3 (09:08→20:41)
[2019-02-04] MEDS: BRIMONIDINE TARTRATE 0.2% DROPS 5 ML BTL LEFT EYE SCH ×3 (09:08→20:40)
[2019-02-04] MEDS: TIMOLOL 0.5% OPHTH DROPS 5 ML BTL LEFT EYE SCH ×2 (09:08→20:39)
--- NOTE | 2019-02-04 10:29 | P.PN ---
Subjective Patient is seen in follow-up for acute kidney injury, currently hemodialysis dependent. Denies chest pain or shortness of breath. Oral intake is fair. Urine output 30-50 mL an hour. Vital signs are stable. General: The patient appeared well nourished and normally developed. HEENT: Head exam is unremarkable. Neck is without jugular venous distension. LUNGS: Lungs are clear to auscultation and percussion. Breath sounds decreased. HEART: Rate and Rhythm are regular. First and second heart sounds normal. No murmurs, rubs or gallops. ABDOMEN: Abdominal exam reveals normal bowel sounds. Non-tender and non- distended. No evidence of peritonitis. EXTREMITITES: Trace edema. Right BKA noted. Objective - Vital Signs Vital signs: Vital Signs Temp 98.2 F 02/04/19 04:00 Pulse 81 02/04/19 10:00 Resp 18 02/04/19 10:00 BP 123/63 02/04/19 10:00 Pulse Ox 98 02/04/19 10:00 Intake & Output 02/03/19 02/04/19 02/04/19 18:59 06:59 18:59 Intake Total 299 200 89 Output Total 3280 505 265 Balance -2981 -305 -176 Weight 108.8 kg 103.7 kg Intake: IV 299 200 89 0.9 Normal Saline ( 39 9 pressure bag) at 3mL/hr Sodium Chloride 0.9% 1, 260 200 80 000 ml @ 20 mls/hr IV . Q24H [facility] Rx#:[id number] Output: Urine 780 505 265 Hemodialysis 2500 Other: Voiding Method Indwelling Catheter Indwelling Catheter Indwelling Catheter # Voids 1 ABP, PAP, CO, CI - Last Documented Arterial Blood Pressure 149/42 - Labs CBC & Chem 7: 02/04/19 04:54 02/04/19 04:50 Labs: Abnormal Lab Results - Last 24 Hours (Table) 02/03/19 02/03/19 02/03/19 Range/Units 11:59 17:09 20:29 RBC (4.30-5.90) m/uL Hgb (13.0-17.5) gm/dL Hct (39.0-53.0) % Lymphocytes # (1.0-4.8) k/uL Carbon Dioxide (22-30) mmol/L BUN (9-20) mg/dL Creatinine (0.66-1.25) mg/dL Glucose (74-99) mg/dL POC Glucose (mg/dL) 118 H 147 H 145 H (75-99) mg/dL Calcium (8.4-10.2) mg/dL Phosphorus (2.5-4.5) mg/dL Albumin (3.5-5.0) g/dL 02/04/19 02/04/19 02/04/19 Range/Units 04:50 04:54 06:55 RBC 2.95 L (4.30-5.90) m/uL Hgb 8.8 L (13.0-17.5) gm/dL Hct 27.0 L (39.0-53.0) % Lymphocytes # 0.8 L (1.0-4.8) k/uL Carbon Dioxide 21 L (22-30) mmol/L BUN 36 H (9-20) mg/dL Creatinine 2.98 H (0.66-1.25) mg/dL Glucose 158 H (74-99) mg/dL POC Glucose (mg/dL) 145 H (75-99) mg/dL Calcium 8.2 L (8.4-10.2) mg/dL Phosphorus 6.1 H (2.5-4.5) mg/dL Albumin 3.0 L (3.5-5.0) g/dL Assessment and Plan Plan: Assessment: 1. Acute kidney injury secondary to ATN secondary to sepsis. Currently hemodialysis dependent via right chest permacath. 2. Acute hypoxic respiratory failure. Now extubated. 3. Right lower extremity ischemia with wet gangrene status post right BKA. 4. Volume overload. Improving with diuresis and ultrafiltration. 5. Metabolic acidosis secondary to acute kidney injury. Expect improvement postdialysis. Stable. 6. Hyperphosphatemia secondary to acute kidney injury. Better. 7. Anemia. Rule out iron deficiency. Maintained on Aranesp. Plan: Hemodialysis tomorrow. Maintain IV Lasix. Continue to monitor renal function and urine output. Add phoslo with meals. Add sodium bicarbonate.
--- NOTE | 2019-02-04 10:37 | P.PN ---
Subjective Progress Note Date: 02/04/19 Refugio Saenz, is a 68-year-old male who presented to [facility] emergency room with pain in the right foot, he was evaluated in emergency room and had blackish discoloration of the right fifth toe with surrounding erythema and tenderness, patient was started on IV antibiotics Zosyn, vancomycin, and clindamycin, he was admitted to medical floor vascular surgery consultation was requested for possible amputation due to evidence of gangrene. Infectious disease consultation was requested. Patient has a known history of insulin-dependent diabetes mellitus, his glucose level was well controlled up until September of this year his A1c in June was 7.1 and in September was 7.3 however apparently patient stopped taking his insulin and his medications and his A1c was up to 9.8 in November, he has a known history of right foot ulcer he was admitted to the hospital with right foot cellulitis and ulcer in 2014 and he was followed at the wound care clinic in 2015 however he was doing well up until recently. Patient also has a known history of hypertension, hyperlipidemia, he denies any history of coronary artery disease or congestive heart failure, he had an echocardiogram done in 2014 at that time he had normal left ventricular function was normal ejection fraction, no significant valvular disease and no pulmonary hypertension. 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 On 01/17/2019 patient's alert and oriented 3. Patient had fourth and fifth toe amputation with Dr. Bustillos this morning. Patient having some low blood pressure will give 500 mL bolus. Patient denies chest pain or shortness of breath. Patient denies nausea vomiting or diarrhea. Patient is having some increased pain to foot area pain medications ordered 01/18/2019, patient seen eval examined while covering for Dr. Granger, waking up this morning slightly slow to respond but not confused, breathing comfortably denies any chest pain labs reviewed today patient has been evaluated by Dr. Bassett, white cell count is coming down to 19,000, lactic acid level is normalized, patient has been on broad-spectrum antibiotics with vascular surgery on board 01/19/2019, patient seen and evaluated examined in the ICU intubated on full ventilator support, patient had gradual loss of consciousness has been more lethargic arterial blood gases were checked shows hypercapnic and hypoxic respiratory failure was intubated in the ICU, patient has been placed on propof ol he was volume depleted depleted aggressive fluid resuscitation were performed, is still requiring levophed intermittently, patient was also noted to be hypoglycemic 7030 insulin and other oral hypoglycemic agents were discontinued, ultrasound of the abdomen has been performed which is reviewed no obvious hydronephrosis seen, patient has decreased urine output along with rising BUN/creatinine appeared to be acute tubular necrosis, patient also requiring intermittent bolus of D10 for hypoglycemia, wounds has been evaluated by vascular surgery noted recommendation, patient has very poor venous access, will put a central line in, critical care time 45 minutes during procedure, due to altered mental status CT of the head was performed which was negative On 01/20/2019 patient remains in the intensive care unit on mechanical ventilation. Levophed has been on hold blood pressures has sustained. Creatinine has increased to 4.17 and bun 56. Nephrology services are following. Per nursing staff patient does follow commands during sedation holiday ABGs have improved. Discussed case with vascular surgeon nurse practitioner possible BKA discussion. White blood cell decreasing to 16.0. Critical care services are following. Patient remains on Zosyn for IV antibiotics. Infectious disease following 01/21/2019 patient remains on mechanical ventilation on in the intensive care unit. Patient remains sedated, on propofol. However per nursing staff patient does follow commands during sedation holiday. Patient is on 50% FiO2, 5 PEEP, tidal volume 500. Levophed off since 01/20/20. Blood pressure remains in the 130's-150's systolic. Creatinine 4.35 from 4.17 and BUN 57 from 56, Calcium 7.0, phosphorus 5.9 Nephrology is following. Orogastric tube replaced this morning. Per nursing staff OG tube was coiled in patient's mouth with tube feeds running. Chest x-ray repeated, no significant change from previous. ABG improving, still metabolic acidosis. WBC of 14.1 down from 16. Afebrile. Infectious disease is following patient is maintained on Zosyn. Will send C. diff sample due to new onset diarrhea for 1 day. Hyperglycemia noted (glucose 200's). Will discuss tube feed formula with dietary. If no changes can be made will adjust sliding scale. On 01/22/2019 patient remains sedated on mechanical ventilation in the intensive care unit. Per nursing staff patient is to have a BKA today with Dr. Bustillos. Patient remains off pressors, blood pressure has been stable. Chest x-ray repeated this morning, per pulmonary. No significant change in ABGs. Creatinine continues to increase, 4.84 today BUN 60, patient is still making adequate urine output nephrology is following. Tube feeds on hold, for pending OR. WBC 14.2, temperature overnight 100F. Please is following patient is maintained on Zosyn. C. diff sample was negative. 01/23/2019 patient remains sedated and on mechanical ventilation in the ICU. He underwent right BKA yesterday, 01/22/[address] Bustillos. Estimated blood loss 150 mL. He had a temp of 100 last night. Urine output is about 50 mL per hour. Creatinine has gone down from 4.84-4.82. Nephrology is following closely. No plans for hemodialysis yet. Patient's blood sugars are starting to become more elevated. They're in the 180s to 200s. Tube feedings are being adjusted. White count 13.7 hemoglobin 10.3 On 01/24/2019 patient remains sedated on mechanical ventilation in the intensive care unit. Decreased urine output throughout night. Creatinine 5.15 and bun 68. Patient remains on insulin drip. WBC 14.1. Patient having low-grade temps. Patient remains closely followed by critical care consulting providers On 01/25/2019 patient was seen and examined in the intensive care unit, he is currently alert and maintained on BiPAP trial, he is making more urine output, and no hemodialysis is scheduled at this time, creatinine improved, down from 5.15-4.44 white blood count down to 11.3 patient is followed by nephrology, infectious disease, pulmonary and critical care and vascular surgery On 01/26/2019 patient was seen and examined in the ICU, he is intubated sedated maintained on mechanical ventilation, creatinine went up today and he was started on hemodialysis, Zosyn has today, at this time will resume Zosyn, we have asked infectious disease to see patient and reassess antibiotics, otherwise patient is stable there is no fever or chills, he continues to have a rectal tube and having large amount of diarrhea, C. diff was checked and was negative will repeat test today. On 01/27/2019 patient remains on mechanical ventilation in the intensive care unit. Creatinine trending down today 4.76 and bun 77. Patient remains on Lasix drip per nephrology services. White count 11.8. She remains on IV Zosyn. Sedation holiday performed per nursing staff and critical care recommendation. On 01/28/2019 patient remains in the intensive care unit on mechanical ventilation. Sedation currently turned off. Patient is awake and following commands possible extubation today per critical care. Patient also received hemodialysis this will be the patient's third round of hemodialysis. Creatinine is trending down 4.44. Patient remains on Lasix drip. On 01/29/2019 patient remains in ICU intubated sedated maintained on mechanical ventilation, he had to CPAP trials yesterday, he is still maintained on hemodialysis, creatinine is elevated at 4.8 and BUN 89. On 01/30/2019 patient remains on mechanical ventilation in the intensive care unit. Patient is off sedation at this time and following commands. CPAP trial in place. Possible extubation today. Patient currently getting hemodialysis. Permanent hemodialysis catheter placed yesterday. Creatinine is trending down. Patient taken off insulin drip. on 01/31/2019 patient remains in intensive care unit on mechanical ventilation. Discussed case with critical care doctor Dr. Dominguez Yesterday. Patient unable to wean. we'll continue to monitor patient over the weekend and consider possible trach next week. Patient also received hemodialysis yesterday. On 02/01/2019 patient was seen and examined in the ICU he is intubated and maegan ntained on mechanical ventilation sedation is being stopped now for CPAP trial on 02/02/2019 patient was seen and examined in the ICU he has been extubated since yesterday, he is tolerating well maintained on oxygen via nasal cannula, he seems somnolent however he is opening his eyes and answering questions by nodding his head and trying to speak, there is no fever or chills no headache or dizziness no chest pain no shortness of breath he has occasional cough no nausea or vomiting no abdominal pain. on 02/03/2019 patient is currently sitting up in chair on nasal cannula. Patient does wake up and follow commands. Per nursing staff antibiotics due to ID is following per nursing will get a hold of infectious disease to further evaluate need for antibiotics. at this time patient denies chest pain or shortness of breath. Patient denies nausea vomiting or diarrhea. Patient denies any urinary burning or frequency. patient to receive hemodialysis today remains on IV Lasix on 02/04/2019 patient is currently resting comfortably in bed. Patient is alert and oriented. Per nursing staff patient no longer needs antibiotics Dr. Bassett is following for infectious disease.patient received dialysis yesterday will receive hemodialysis again tomorrow maintained on IV Lasix. Elevated blood pressure. Hydralazine by mouth has been added. At this time patient denies chest pain or shortness of breath. Patient denies nausea vomiting or diarrhea. Patient denies any urinary burning or frequency. Objective - Vital Signs Vital signs: Vital Signs Temp 98.2 F 02/04/19 04:00 Pulse 81 02/04/19 10:00 Resp 18 02/04/19 10:00 BP 123/63 02/04/19 10:00 Pulse Ox 98 02/04/19 10:00 Intake & Output 02/03/19 02/04/19 02/04/19 18:59 06:59 18:59 Intake Total 299 200 89 Output Total 3280 505 265 Balance -2981 -305 -176 Weight 108.8 kg 103.7 kg Intake: IV 299 200 89 0.9 Normal Saline ( 39 9 pressure bag) at 3mL/hr Sodium Chloride 0.9% 1, 260 200 80 000 ml @ 20 mls/hr IV . Q24H [facility] Rx#:[id number] Output: Urine 780 505 265 Hemodialysis 2500 Other: Voiding Method Indwelling Catheter Indwelling Catheter Indwelling Catheter # Voids 1 ABP, PAP, CO, CI - Last Documented Arterial Blood Pressure 149/42 - Exam HEENT head normocephalic and atraumatic Neck is supple no JVD no goiter no lymphadenopathy Chest exam reveals diminished lung sounds, a few scattered rhonchi no wheezing Cardiac exam reveals regular heart sounds S1 and S2 no gallops no murmurs Abdomen is obese, soft nontender no organomegaly with normal bowel sounds Extremity right BKA. Dressing is clean dry and intact Neuro no gross focal neurological deficit.patient is alert and oriented. Patient sleepy but wakes up and follows commands. unequal pupils left greater than right. Patient reports he had eye surgery previously unable to recall for what but does report this is chronic. No other neuro deficits noted - Labs CBC & Chem 7: 02/04/19 04:54 02/04/19 04:50 Labs: Abnormal Lab Results - Last 24 Hours (Table) 02/03/19 02/03/19 02/03/19 Range/Units 11:59 17:09 20:29 RBC (4.30-5.90) m/uL Hgb (13.0-17.5) gm/dL Hct (39.0-53.0) % Lymphocytes # (1.0-4.8) k/uL Carbon Dioxide (22-30) mmol/L BUN (9-20) mg/dL Creatinine (0.66-1.25) mg/dL Glucose (74-99) mg/dL POC Glucose (mg/dL) 118 H 147 H 145 H (75-99) mg/dL Calcium (8.4-10.2) mg/dL Phosphorus (2.5-4.5) mg/dL Albumin (3.5-5.0) g/dL 02/04/19 02/04/19 02/04/19 Range/Units 04:50 04:54 06:55 RBC 2.95 L (4.30-5.90) m/uL Hgb 8.8 L (13.0-17.5) gm/dL Hct 27.0 L (39.0-53.0) % Lymphocytes # 0.8 L (1.0-4.8) k/uL Carbon Dioxide 21 L (22-30) mmol/L BUN 36 H (9-20) mg/dL Creatinine 2.98 H (0.66-1.25) mg/dL Glucose 158 H (74-99) mg/dL POC Glucose (mg/dL) 145 H (75-99) mg/dL Calcium 8.2 L (8.4-10.2) mg/dL Phosphorus 6.1 H (2.5-4.5) mg/dL Albumin 3.0 L (3.5-5.0) g/dL Assessment and Plan Assessment: #1 gangrene involving the right fifth toe with surrounding cellulitis Status post amputation of fourth and fifth toe with Dr. Bustillos and status post right BKA. #2 sepsis present on admission as evidenced by fever, leukocytosis, and elevated lactic acid. wound cultures growing gram-negative bacilli. White blood cell improving down to 9.3. patient has completed course of antibiotics per infectious disease no need for antibiotics at this time #3 acute hypoxic and hypercapnic respiratory failure with altered mental status changes secondary to severe sepsis. Patient was transferred to the intensive care unit and placed on mechanical ventilation. patient has been successfully extubated to 2 L. #4. Hypotension secondary to septic shock requiring Levophed for pressure support. resolved #5. Acute kidney injury secondary to ATN secondary to hypotension as well as vancomycin toxicity. Nephrology services are following. Ultrasound completed showing no evidence of hydronephrosis. currently receiving hemodialysis. Permanent hemodialysis catheter placed on 01/29/2019. #6. history of essential hypertension. Cardiology services following. EF 50- 55%. Per cardiology services no evidence of acute coronary syndrome at this time. hydralazine has been added by mouth #7. insulin-dependent diabetes mellitus, with poor control due to noncompliance last hemoglobin A1c was 9.8 at this time will hold glipizide, Januvia and metformin, and cover was insulin to sliding scale will adjust medications as needed. Blood sugars have been in the 200s after episode of hypoglycemia. Patient currently on insulin drip for tight blood sugar control. Insulin drip has been DC'd. Patient started on sliding scale coverage #8. underlying history of diabetic complications of peripheral neuropathy and retinopathy. #9. poor compliance with medical management, patient had extensive counseling in the last year, his A1c was down to 7.1 in June however it was up to 9.8 again recently. #10 underlying history of hyperlipidemia maintained on atorvastatin, on hold. #11. Hypoglycemia. Home meds DC'd. Tube feedings have been initiated. Hypoglycemia has resolved #12. volume overload. Patient maintained on IV Lasix. Nephrology services are following DVT prophylaxis heparin. GI prophylaxis Protonix Critical care, vascular surgery, infectious disease, cardiology and nephrology services following PT OT consulted social work consulted will likely need ECF upon discharge I performed an examination of the patient and discussed their management with the Nurse Practitioner. I have reviewed the Nurse Practitioner's notes and agree with the documented findings and plan of care
[2019-02-04 11:44] LABS: Glucose,Whole Blood 156 mg/dL (75-99)
[2019-02-04] MEDS: CALCIUM ACETATE 667 MG TAB PO SCH ×2 (12:02→17:15)
[2019-02-04] MEDS: SODIUM BICARBONATE TAB 650 MG TAB PO SCH ×2 (12:02→20:41)
--- NOTE | 2019-02-04 12:53 | P.PN ---
Subjective Progress Note Date: 02/04/19 Patient seen and examined. No issues overnight. He has been extubated since my last visit. He is doing well. Slightly confused. His tunneled dialysis catheter is working well. No issues with his right lower extremity below-knee amputation site. Overall the patient is doing well in the postoperative phases. At this time no further vascular intervention is planned. Please notify us if you need further assistance. He may follow up with me in the office upon discharge within a week. Please let us know upon discharge for evaluation of possible removal of his robert from his incisional site. Objective - Vital Signs Vital signs: Vital Signs Temp 97.2 F L 02/04/19 12:00 Pulse 73 02/04/19 12:00 Resp 25 H 02/04/19 12:00 BP 123/55 02/04/19 12:00 Pulse Ox 98 02/04/19 12:00 Intake & Output 02/03/19 02/04/19 02/04/19 18:59 06:59 18:59 Intake Total 299 200 129 Output Total 3280 505 325 Balance -2981 -305 -196 Weight 108.8 kg 103.7 kg Intake: IV 299 200 129 0.9 Normal Saline ( 39 9 pressure bag) at 3mL/hr Sodium Chloride 0.9% 1, 260 200 120 000 ml @ 20 mls/hr IV . Q24H [facility] Rx#:[id number] Output: Urine 780 505 325 Hemodialysis 2500 Other: Voiding Method Indwelling Catheter Indwelling Catheter Indwelling Catheter # Voids 1 ABP, PAP, CO, CI - Last Documented Arterial Blood Pressure 149/42 - Labs CBC & Chem 7: 02/04/19 04:54 02/04/19 04:50 Labs: Abnormal Lab Results - Last 24 Hours (Table) 02/03/19 02/03/19 02/04/19 Range/Units 17:09 20:29 04:50 RBC (4.30-5.90) m/uL Hgb (13.0-17.5) gm/dL Hct (39.0-53.0) % Lymphocytes # (1.0-4.8) k/uL Carbon Dioxide 21 L (22-30) mmol/L BUN 36 H (9-20) mg/dL Creatinine 2.98 H (0.66-1.25) mg/dL Glucose 158 H (74-99) mg/dL POC Glucose (mg/dL) 147 H 145 H (75-99) mg/dL Calcium 8.2 L (8.4-10.2) mg/dL Phosphorus 6.1 H (2.5-4.5) mg/dL Albumin 3.0 L (3.5-5.0) g/dL 02/04/19 02/04/19 02/04/19 Range/Units 04:54 06:55 11:43 RBC 2.95 L (4.30-5.90) m/uL Hgb 8.8 L (13.0-17.5) gm/dL Hct 27.0 L (39.0-53.0) % Lymphocytes # 0.8 L (1.0-4.8) k/uL Carbon Dioxide (22-30) mmol/L BUN (9-20) mg/dL Creatinine (0.66-1.25) mg/dL Glucose (74-99) mg/dL POC Glucose (mg/dL) 145 H 156 H (75-99) mg/dL Calcium (8.4-10.2) mg/dL Phosphorus (2.5-4.5) mg/dL Albumin (3.5-5.0) g/dL
[2019-02-04 13:12] LABS: Hepatitis B Surface Antigen Reactive (Non-Reactive)
[2019-02-04] MEDS: hydrALAZINE HCL 25 MG TAB PO SCH ×2 (16:22→23:11)
[2019-02-04 16:34] LABS: Glucose,Whole Blood 133 mg/dL (75-99)
[2019-02-04 17:35] LABS: % Iron Saturation 15.6 (15.00-50.00)
[2019-02-04 18:10] LABS: Ferritin 1686.9 ng/mL (22.0-322.0)
--- NOTE | 2019-02-04 18:26 | P.PN ---
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, poor compliance, dyslipidemia, dehydration 02/04/2019, patient seen and evaluated examined during the rounds labs reviewed medications reviewed care plan discussed with the patient and staff at length patient is on 2 L oxygen breathing comfortably he had BiPAP treatment yesterday which she tolerated for 5-6 hours, he is well oriented 3 he is actively undergoing physical therapy for profound weakness, his BUN/creatinine improved to 36 and 2.98 02/03/2019, patient seen eval examined during the rounds labs reviewed medications reviewed care plan discussed with the patient and staff at length he is doing well on 2 L oxygen, severe degree of generalized weakness is present though, patient has using BiPAP machine each night and when necessary during the day, patient is undergoing hemodialysis plan is to remove 2-1/2 L, so far he has been tolerating dialysis very well, February 02 2019, patient seen eval examined during the rounds labs reviewed medications reviewed radiographic studies reviewed as well, patient has been placed on CPAP of 5 pressure support 18 has been doing very well with that arterial blood gas in weaning parameters are reviewed even though patient appears to be in weeks' side but feel that patient can be successfully extubated proceeded with extubation, patient has been placed on 4 L nasal cannula postextubation he has a weak cough I have instructed staff to get him out of the bed with deep breathing and cough, patient will require BiPAP H night and when necessary during the day setting have been adjusted, continue Lasix when necessary seems to be making urine patient is due for dialysis tomorrow as well, critical care time spent 35 minutes 02/01/2019, patient seen eval examined during the rounds Asians propofol is slowly being titrated down, patient is undergoing hemodialysis so far 1 L of fluid has been removed one hour dialysis still left, one and half liter to be removed as well patient tolerated the procedure very well, labs reviewed me dications reviewed x-ray reviewed as well once patient is done with the dialysis will put patient on CPAP and pressure support if tolerated very well then consider weaning and extubation 01/31/2019, protocol has been discontinued patient is still somnolent but does respond to physical stimuli patient will be placed on CPAP and pressure support once a relatively more awake will continue the weaning trials as tolerated patient is not due for dialysis today the x-ray reviewed labs reviewed as, chest x-ray continued to show evidence of fluid overload right-sided dialysis catheter is stable, hemoglobin stable at 7.9, the biopsy in normal limit, arterial blood gases shows resolution of severe metabolic acidosis, BUN/creatinine improved to 54 and 3.42, sugar is slightly elevated patient has been getting insulin sliding scale and as per protocol 01/30/2019, patient seen evlilli examined during the rounds labs reviewed medications reviewed care plan discussed with the staff and primary service at length patient has a CPAP pressure support trial today unable to tolerate for longer period time just lasted for 15 minutes started having desaturation and was extremely short of breath, switch back to assist control mode, patient however has a successful dialysis about 2 L of fluid has been removed patient will get another dialysis trial tomorrow, labs reviewed radiographic studies reviewed, x-ray still showing fluid overload changes no significant change has been notedAmmann patient also underwent dialysis catheter placement, we'll continue CPAP pressure support trial as the fluid has been removed with the dialysis, if unsuccessful then consideration of trach and PEG will be entertained early next week, his sugars are better controlled his been switched from insulin drip to sliding scale insulin with twice a day dose 01/28/2019 Pt seen and examined care plan reviewed during AM rounds had trouble d dialysis due to catheter clogging, renal fx slightly better, cxr not much changed, ABG post cpap/ps suggestive of mild resp acidosis and predominantly Metabolic acidosis, feel that pt would require at least 2-3 more cycles of dialysis before successfully take him of of Vent, would recommend daily dialysis 01/27/2019, patient seen evlilli examined during the rounds patient is due for dialysis today, remains on full vent setting but however undergoing CPAP pressure support trial with 5 and 10 tolerating very well, per support will be decreased to 5, patient is due for another dialysis later on today, tomorrow will do the CPAP and pressure support and check a blood gas afterwards if does well then possibly extubate, chest x-ray continue show bilateral basilar atelectasis but overall they remained stable labs reviewed medications reviewed care plan discussed with the respiratory therapist and entry level staff accountant at length critical care time spent 35 minutes 01/26/2019, patient seen evlilli examined during the rounds labs reviewed medications reviewed, patient has been on Lasix drip 10 mg an hour also on propofol drip 10 mcg, patient had a hemodialysis done here earlier today with intent to remove the fluid, patient will get another hemodialysis tomorrow as well, has placed patient on CPAP of 5 pressure support of 10 is spontaneously breathing the rate is about 16-18 and tidal volume 350-400 range, extensive amount of secretions are present still, patient is not ready not ready for extubation but however they're indeed ready for weaning would recommend continued to do hemodialysis on a daily basis for at least 3 or 4 days so that volume overload can be dealt with, right cell count is 12,000 and hemoglobin and hematocrit remained stable arterial blood gas reviewed still have significant metabolic acidosis, renal function continued decline progressively BUN and creatinine up to 84 and 5.2, remains on Zosyn, chest x-ray as above noted to have worsening changes due to fluid overload, culture not growing anything, insulin drip is on sugars better controlled now 01/24/2019, patient seen evlilli reexamined during the rounds critical care time 35 minutes, patient has a weaning attempt with CPAP and pressure support but was not completed as patient is due for hemodialysis catheter placement in right femoral vein the renal service thinking about hemodialysis tomorrow breathing remains stable patient remains on assist control rate of 18 FiO2 of 50% 5 of PEEP, and renal function continued to deteriorate gradually being output slowly declining 01/23/2019, patient seen evlilli examined during the rounds labs reviewed medications reviewed care plan discussed with the staff at length and had a short weaning attempt and a sedation holiday with which he tolerated for short period of time then becomes tachypneic put back on respirator fit. We'll patient has been diuresing fairly well has been negative for the first time, urine output of 30-40 mL an hour. BUN/creatinine remains stable, patient is postop day #1 of the BKA, chest x-ray from today reviewed findings are most suggestive of fluid overload less likely to be pneumonia, the ET tube and central line and NG tube was stable, white cell count is 13,000 arterial blood gases remained stable, BUN/creatinine gradually going up is 60 and 4.8 to, sugar is running on the higher side last check sugar was over 260 patient is being started on insulin drip 01/21/2019, patient seen and evaluated examined during the rounds labs reviewed medications reviewed, patient the remains on sedation with propofol mildly sedat ed he does wake up follow simple commands and munira -1-2, he remains on IV fluids gently being rehydrated 50 mL an hour to feed is being given this morning patient noted to have a tube coiling in the mouth as He is to have pulled out late morning hours, the need to be has been placed position has been confirmed chest x-ray continued to show for evidence of fluid overload and this should edema along with possible infiltrate, he remains on assist control rate of 18 and tidal volume of 505 of PEEP and oxygen is 50% he is +1.2 L since morning, care plan discussed with nephrology as well as the vascular surgery, as his BUN and creatinine continued to go up creatinine is 5.1 in spite of good adequate urine output, patient continue on broad-spectrum antibiotic when setting remains stable respiratory secretions are still thick tenacious and appears to be improving slowly, blood cultures and sputum culture has been negative, need to make eyes and nose on the negative side as well as would like to see been function improving before consideration of weaning that anticipate will take another 24-48 hours 01/20/2019, patient seen eval examined during the rounds and labs reviewed medications reviewed critical care time spent 35 minutes, patient remains on assist control rate 18 and tidal volume of 500 along with PEEP of 5, patient is sedated with propofol drip but doesn't respond to simple stimuli, patient has been making good amount of urine levo fed is not require S patient is hemodynamically stable urine output has improved to 50-60 mL an hour post Lasix which is advised by nephrology service urine output has improved, patient has been tolerating tube feed well given that volume overload situation due to hypotension and was given fluid for resuscitation patient gently being diuresed, she he remains on broad-spectrum antibiotic sliding scale insulin labs reviewed medications reviewed care plan discussed with the staff and 2 brothers at bedside at length, chest x-ray from today reviewed bilateral atelectasis and fluid overload is present overall suggestive of more of his CHF and pneumonia, white cell count is stable, arterial blood gases improved, BUN/creatinine continue to go up 56 and 4.17, sugars have been stabilized 01/19/2019, patient seen and evaluated examined in the ICU intubated on full ventilator support, patient had gradual loss of consciousness has been more l ethargic arterial blood gases were checked shows hypercapnic and hypoxic respiratory failure was intubated in the ICU, patient has been placed on propofol he was volume depleted depleted aggressive fluid resuscitation were performed, is still require levo fed intermittently, patient was also noted to be hypoglycemic 7030 insulin and other oral hypoglycemic agents were discontinued, ultrasound of the abdomen has been performed which is reviewed no obvious hydronephrosis seen, patient has decreased urine output along with rising BUN/creatinine appeared to be acute tubular necrosis, patient also requiring intermittent bolus of D10 for hypoglycemia, wounds has been evaluated by vascular surgery noted recommendation, patient has very poor venous access, will put a central line in, critical care time 45 minutes during procedure, due to altered mental status CT of the head was performed which was negative 01/18/2019, patient seen eval examined while covering for Dr. Granger, waking up this morning slightly slow to respond but not confused, breathing comfortably denies any chest pain labs reviewed today patient has been evaluated by Dr. Bassett, white cell count is coming down to 19,000, lactic acid level is normalized, patient has been on broad-spectrum antibiotics with vascular surgery on board Objective - Vital Signs Vital signs: Vital Signs Temp 98.2 F 02/04/19 16:00 Pulse 69 02/04/19 17:00 Resp 25 H 02/04/19 17:00 BP 128/54 02/04/19 17:00 Pulse Ox 98 02/04/19 17:00 Intake & Output 02/03/19 02/04/19 02/04/19 18:59 06:59 18:59 Intake Total 299 200 299 Output Total 3280 505 605 Balance -2981 -305 -306 Weight 108.8 kg 103.7 kg Intake: IV 299 200 249 0.9 Normal Saline ( 39 9 pressure bag) at 3mL/hr Sodium Chloride 0.9% 1, 260 200 240 000 ml @ 20 mls/hr IV . Q24H [facility] Rx#:[id number] Oral 50 Output: Urine 780 505 605 Hemodialysis 2500 Other: Voiding Method Indwelling Catheter Indwelling Catheter Indwelling Catheter # Voids 1 ABP, PAP, CO, CI - Last Documented Arterial Blood Pressure 149/42 - Exam Intubated on full vent support on propofol getting IV fluids normal saline , assessed pre-and post extubation HEENT head normocephalic and atraumatic Neck is supple no JVD no goiter no lymphadenopathy Chest exam reveals a few scattered rhonchi no wheezing Cardiac exam reveals regular heart sounds S1 and S2 no gallops no murmurs Abdomen is soft nontender no organomegaly with normal bowel sounds Extremity exam status post right BKA Neuro no gross focal neurological deficit, patient has anisocoria - Labs CBC & Chem 7: 02/04/19 04:54 02/04/19 04:50 Labs: Abnormal Lab Results - Last 24 Hours (Table) 01/31/19 02/03/19 02/04/19 Range/Units 04:59 20:29 04:50 RBC (4.30-5.90) m/uL Hgb (13.0-17.5) gm/dL Hct (39.0-53.0) % Lymphocytes # (1.0-4.8) k/uL Carbon Dioxide 21 L (22-30) mmol/L BUN 36 H (9-20) mg/dL Creatinine 2.98 H (0.66-1.25) mg/dL Glucose 158 H (74-99) mg/dL POC Glucose (mg/dL) 145 H (75-99) mg/dL Calcium 8.2 L (8.4-10.2) mg/dL Phosphorus 6.1 H (2.5-4.5) mg/dL Iron (65-175) ug/dL TIBC (228-460) ug/dL Ferritin (22.0-322.0) ng/mL Albumin 3.0 L (3.5-5.0) g/dL Hep Bs Antigen Reactive H (Non-Reactive) 02/04/19 02/04/19 02/04/19 Range/Units 04:50 04:54 06:55 RBC 2.95 L (4.30-5.90) m/uL Hgb 8.8 L (13.0-17.5) gm/dL Hct 27.0 L (39.0-53.0) % Lymphocytes # 0.8 L (1.0-4.8) k/uL Carbon Dioxide (22-30) mmol/L BUN (9-20) mg/dL Creatinine (0.66-1.25) mg/dL Glucose (74-99) mg/dL POC Glucose (mg/dL) 145 H (75-99) mg/dL Calcium (8.4-10.2) mg/dL Phosphorus (2.5-4.5) mg/dL Iron 34 L (65-175) ug/dL TIBC 218 L (228-460) ug/dL Ferritin 1686.9 H (22.0-322.0) ng/mL Albumin (3.5-5.0) g/dL Hep Bs Antigen (Non-Reactive) 02/04/19 02/04/19 Range/Units 11:43 16:32 RBC (4.30-5.90) m/uL Hgb (13.0-17.5) gm/dL Hct (39.0-53.0) % Lymphocytes # (1.0-4.8) k/uL Carbon Dioxide (22-30) mmol/L BUN (9-20) mg/dL Creatinine (0.66-1.25) mg/dL Glucose (74-99) mg/dL POC Glucose (mg/dL) 156 H 133 H (75-99) mg/dL Calcium (8.4-10.2) mg/dL Phosphorus (2.5-4.5) mg/dL Iron (65-175) ug/dL TIBC (228-460) ug/dL Ferritin (22.0-322.0) ng/mL Albumin (3.5-5.0) g/dL Hep Bs Antigen (Non-Reactive) Assessment and Plan Assessment: Altered mental status Hypoxic and hypercapnic respiratory failure Acute on chronic renal failure Bilateral atelectasis and possible aspiration pneumonia Fluid overload and acute interstitial edema Severe hyperglycemia 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 Sepsis and septic shock Insulin-dependent diabetes mellitus poorly controlled, being started on insulin drip Hypertension hypertensive cardiovascular disease Dyslipidemia Plan: doing well on 2 L nasal cannula Will use BiPAP each night and when necessary during the day continue sliding scale insulin Monitor renal functions closely once patient is negative and renal function improving we will initiate the weaning processs chest PT and physical therapy Up on chair increase activity as tolerated Continue gentle diuresis continue dialysis as planned Broad-spectrum antibiotics Time with Patient: Greater than 30
[2019-02-04 20:20] LABS: Glucose,Whole Blood 160 mg/dL (75-99)
[2019-02-04] MEDS: LATANOPROST 0.005% OPHTH DROPS 2.5 ML BTL LEFT EYE SCH (20:38)
[2019-02-04 20:45] LABS: ABG Base Excess 0.9 mmol/L; ABG HCO3 27 mmol/L (21-25); ABG Oxygen Saturation 97.5 % (94-97); ABG PCO2 52 mmHg (35-45); ABG PH 7.32 (7.35-7.45); ABG PO2 96 mmHg (83-108); ABG TCO2 29 mmol/L (19-24); Allen Test Performed? Yes
[2019-02-05 03:21] LABS: ABG Base Excess 0.6 mmol/L; ABG HCO3 27 mmol/L (21-25); ABG Oxygen Saturation 98.8 % (94-97); ABG PCO2 51 mmHg (35-45); ABG PH 7.33 (7.35-7.45); ABG PO2 129 mmHg (83-108); ABG TCO2 28 mmol/L (19-24); Allen Test Performed? Yes
[2019-02-05 05:13] LABS: Basophils # (A) 0.1 k/uL (0-0.2); Basophils % (A) 2 %; Eosinophils # (A) 0.4 k/uL (0-0.7); Eosinophils % (A) 7 %; HCT 27.4 % (39.0-53.0); HGB 8.5 gm/dL (13.0-17.5); Lymphocytes # (A) 0.9 k/uL (1.0-4.8); Lymphocytes % (A) 18 %; MCH 28.2 pg (25.0-35.0); MCV 91.1 fL (80.0-100.0); Mean Platelet Volume 9.3; Monocytes # (A) 0.4 k/uL (0-1.0); Monocytes % (A) 8 %; Neutrophils # (A) 3.1 k/uL (1.3-7.7); Neutrophils % (A) 61 %; Platelet Count 205 k/uL (150-450); RDW 13.4 % (11.5-15.5); WBC 5.1 k/uL (3.8-10.6)
[2019-02-05 05:23] LABS: Calcium 8.4 mg/dL (8.4-10.2); Potassium 3.9 mmol/L (3.5-5.1); Total Bilirubin 0.4 mg/dL (0.2-1.3); Total Protein 6.7 g/dL (6.3-8.2)
[2019-02-05 06:38] LABS: Glucose,Whole Blood 143 mg/dL (75-99)
[2019-02-05] MEDS: INSULIN ASPART (NovoLOG) 100 UNIT/ML VIAL SQ SCH ×4 (07:18→21:16)
[2019-02-05] MEDS: CALCIUM ACETATE 667 MG TAB PO SCH ×3 (07:18→17:10)
[2019-02-05] MEDS: SODIUM BICARBONATE TAB 650 MG TAB PO SCH ×2 (08:49→21:19)
[2019-02-05] MEDS: FLUoxetine HCL 20 MG CAP PO SCH (08:50)
[2019-02-05] MEDS: FUROSEMIDE 10 MG/ML 10 ML VIAL IV SCH ×2 (08:50→21:14)
[2019-02-05] MEDS: hydrALAZINE HCL 25 MG TAB PO SCH ×3 (08:50→21:21)
[2019-02-05] MEDS: PANTOPRAZOLE 40 MG/10 ML VIAL IV SCH (08:50)
[2019-02-05] MEDS: HEPARIN SODIUM,PORCINE 5,000 UNIT/ML 1 ML VIAL SQ SCH ×2 (08:50→17:09)
[2019-02-05] MEDS: GABAPENTIN 100 MG CAP PO SCH ×3 (08:50→21:20)
[2019-02-05] MEDS: BRIMONIDINE TARTRATE 0.2% DROPS 5 ML BTL LEFT EYE SCH ×3 (08:51→21:18)
[2019-02-05] MEDS: TIMOLOL 0.5% OPHTH DROPS 5 ML BTL LEFT EYE SCH ×2 (08:51→21:18)
[2019-02-05] MEDS: DORZOLAMIDE HCL 2% DROPS 10 ML BTL LEFT EYE SCH ×3 (08:51→21:18)
--- NOTE | 2019-02-05 10:30 | P.PN ---
Subjective Progress Note Date: 02/05/19 Refugio Saenz, is a 68-year-old male who presented to [facility] emergency room with pain in the right foot, he was evaluated in emergency room and had blackish discoloration of the right fifth toe with surrounding erythema and tenderness, patient was started on IV antibiotics Zosyn, vancomycin, and clindamycin, he was admitted to medical floor vascular surgery consultation was requested for possible amputation due to evidence of gangrene. Infectious disease consultation was requested. Patient has a known history of insulin-dependent diabetes mellitus, his glucose level was well controlled up until September of this year his A1c in June was 7.1 and in September was 7.3 however apparently patient stopped taking his insulin and his medications and his A1c was up to 9.8 in November, he has a known history of right foot ulcer he was admitted to the hospital with right foot cellulitis and ulcer in 2014 and he was followed at the wound care clinic in 2015 however he was doing well up until recently. Patient also has a known history of hypertension, hyperlipidemia, he denies any history of coronary artery disease or congestive heart failure, he had an echocardiogram done in 2014 at that time he had normal left ventricular function was normal ejection fraction, no significant valvular disease and no pulmonary hypertension. 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 On 01/17/2019 patient's alert and oriented 3. Patient had fourth and fifth toe amputation with Dr. Bustillos this morning. Patient having some low blood pressure will give 500 mL bolus. Patient denies chest pain or shortness of breath. Patient denies nausea vomiting or diarrhea. Patient is having some increased pain to foot area pain medications ordered 01/18/2019, patient seen eval examined while covering for Dr. Granger, waking up this morning slightly slow to respond but not confused, breathing comfortably denies any chest pain labs reviewed today patient has been evaluated by Dr. Bassett, white cell count is coming down to 19,000, lactic acid level is normalized, patient has been on broad-spectrum antibiotics with vascular surgery on board 01/19/2019, patient seen and evaluated examined in the ICU intubated on full ventilator support, patient had gradual loss of consciousness has been more lethargic arterial blood gases were checked shows hypercapnic and hypoxic respiratory failure was intubated in the ICU, patient has been placed on propof ol he was volume depleted depleted aggressive fluid resuscitation were performed, is still requiring levophed intermittently, patient was also noted to be hypoglycemic 7030 insulin and other oral hypoglycemic agents were discontinued, ultrasound of the abdomen has been performed which is reviewed no obvious hydronephrosis seen, patient has decreased urine output along with rising BUN/creatinine appeared to be acute tubular necrosis, patient also requiring intermittent bolus of D10 for hypoglycemia, wounds has been evaluated by vascular surgery noted recommendation, patient has very poor venous access, will put a central line in, critical care time 45 minutes during procedure, due to altered mental status CT of the head was performed which was negative On 01/20/2019 patient remains in the intensive care unit on mechanical ventilation. Levophed has been on hold blood pressures has sustained. Creatinine has increased to 4.17 and bun 56. Nephrology services are following. Per nursing staff patient does follow commands during sedation holiday ABGs have improved. Discussed case with vascular surgeon nurse practitioner possible BKA discussion. White blood cell decreasing to 16.0. Critical care services are following. Patient remains on Zosyn for IV antibiotics. Infectious disease following 01/21/2019 patient remains on mechanical ventilation on in the intensive care unit. Patient remains sedated, on propofol. However per nursing staff patient does follow commands during sedation holiday. Patient is on 50% FiO2, 5 PEEP, tidal volume 500. Levophed off since 01/20/20. Blood pressure remains in the 130's-150's systolic. Creatinine 4.35 from 4.17 and BUN 57 from 56, Calcium 7.0, phosphorus 5.9 Nephrology is following. Orogastric tube replaced this morning. Per nursing staff OG tube was coiled in patient's mouth with tube feeds running. Chest x-ray repeated, no significant change from previous. ABG improving, still metabolic acidosis. WBC of 14.1 down from 16. Afebrile. Infectious disease is following patient is maintained on Zosyn. Will send C. diff sample due to new onset diarrhea for 1 day. Hyperglycemia noted (glucose 200's). Will discuss tube feed formula with dietary. If no changes can be made will adjust sliding scale. On 01/22/2019 patient remains sedated on mechanical ventilation in the intensive care unit. Per nursing staff patient is to have a BKA today with Dr. Bustillos. Patient remains off pressors, blood pressure has been stable. Chest x-ray repeated this morning, per pulmonary. No significant change in ABGs. Creatinine continues to increase, 4.84 today BUN 60, patient is still making adequate urine output nephrology is following. Tube feeds on hold, for pending OR. WBC 14.2, temperature overnight 100F. Please is following patient is maintained on Zosyn. C. diff sample was negative. 01/23/2019 patient remains sedated and on mechanical ventilation in the ICU. He underwent right BKA yesterday, 01/22/[address] Bustillos. Estimated blood loss 150 mL. He had a temp of 100 last night. Urine output is about 50 mL per hour. Creatinine has gone down from 4.84-4.82. Nephrology is following closely. No plans for hemodialysis yet. Patient's blood sugars are starting to become more elevated. They're in the 180s to 200s. Tube feedings are being adjusted. White count 13.7 hemoglobin 10.3 On 01/24/2019 patient remains sedated on mechanical ventilation in the intensive care unit. Decreased urine output throughout night. Creatinine 5.15 and bun 68. Patient remains on insulin drip. WBC 14.1. Patient having low-grade temps. Patient remains closely followed by critical care consulting providers On 01/25/2019 patient was seen and examined in the intensive care unit, he is currently alert and maintained on BiPAP trial, he is making more urine output, and no hemodialysis is scheduled at this time, creatinine improved, down from 5.15-4.44 white blood count down to 11.3 patient is followed by nephrology, infectious disease, pulmonary and critical care and vascular surgery On 01/26/2019 patient was seen and examined in the ICU, he is intubated sedated maintained on mechanical ventilation, creatinine went up today and he was started on hemodialysis, Zosyn has today, at this time will resume Zosyn, we have asked infectious disease to see patient and reassess antibiotics, otherwise patient is stable there is no fever or chills, he continues to have a rectal tube and having large amount of diarrhea, C. diff was checked and was negative will repeat test today. On 01/27/2019 patient remains on mechanical ventilation in the intensive care unit. Creatinine trending down today 4.76 and bun 77. Patient remains on Lasix drip per nephrology services. White count 11.8. She remains on IV Zosyn. Sedation holiday performed per nursing staff and critical care recommendation. On 01/28/2019 patient remains in the intensive care unit on mechanical ventilation. Sedation currently turned off. Patient is awake and following commands possible extubation today per critical care. Patient also received hemodialysis this will be the patient's third round of hemodialysis. Creatinine is trending down 4.44. Patient remains on Lasix drip. On 01/29/2019 patient remains in ICU intubated sedated maintained on mechanical ventilation, he had to CPAP trials yesterday, he is still maintained on hemodialysis, creatinine is elevated at 4.8 and BUN 89. On 01/30/2019 patient remains on mechanical ventilation in the intensive care unit. Patient is off sedation at this time and following commands. CPAP trial in place. Possible extubation today. Patient currently getting hemodialysis. Permanent hemodialysis catheter placed yesterday. Creatinine is trending down. Patient taken off insulin drip. on 01/31/2019 patient remains in intensive care unit on mechanical ventilation. Discussed case with critical care doctor Dr. Dominguez Yesterday. Patient unable to wean. we'll continue to monitor patient over the weekend and consider possible trach next week. Patient also received hemodialysis yesterday. On 02/01/2019 patient was seen and examined in the ICU he is intubated and maegan ntained on mechanical ventilation sedation is being stopped now for CPAP trial on 02/02/2019 patient was seen and examined in the ICU he has been extubated since yesterday, he is tolerating well maintained on oxygen via nasal cannula, he seems somnolent however he is opening his eyes and answering questions by nodding his head and trying to speak, there is no fever or chills no headache or dizziness no chest pain no shortness of breath he has occasional cough no nausea or vomiting no abdominal pain. on 02/03/2019 patient is currently sitting up in chair on nasal cannula. Patient does wake up and follow commands. Per nursing staff antibiotics due to ID is following per nursing will get a hold of infectious disease to further evaluate need for antibiotics. at this time patient denies chest pain or shortness of breath. Patient denies nausea vomiting or diarrhea. Patient denies any urinary burning or frequency. patient to receive hemodialysis today remains on IV Lasix on 02/04/2019 patient is currently resting comfortably in bed. Patient is alert and oriented. Per nursing staff patient no longer needs antibiotics Dr. Bassett is following for infectious disease.patient received dialysis yesterday will receive hemodialysis again tomorrow maintained on IV Lasix. Elevated blood pressure. Hydralazine by mouth has been added. At this time patient denies chest pain or shortness of breath. Patient denies nausea vomiting or diarrhea. Patient denies any urinary burning or frequency. on 02/05/2019 patient is currently resting comfortably in chair. Per nursing staff patient had episode of increased lethargy last night requiring BiPAP and Narcan. per critical care and narcotics and benzos were DC'd at this time. Patient is now awake and alert 3. Patient able to follow commands and answer all questions. Patient denies any chest pain or shortness of breath. Patient denies nausea vomiting or diarrhea. Patient denies any urinary burning or frequency. Objective - Vital Signs Vital signs: Vital Signs Temp 98.1 F 02/05/19 08:00 Pulse 72 02/05/19 08:00 Resp 13 02/05/19 08:00 BP 144/69 02/05/19 08:00 Pulse Ox 97 02/05/19 08:00 Intake & Output 02/04/19 02/05/19 02/05/19 18:59 06:59 18:59 Intake Total 319 220 60 Output Total 680 360 55 Balance -361 -140 5 Weight 105 kg Intake: IV 269 220 60 0.9 Normal Saline ( 9 pressure bag) at 3mL/hr Sodium Chloride 0.9% 1, 260 220 60 000 ml @ 20 mls/hr IV . Q24H [facility] Rx#:[id number] Oral 50 Output: Urine 680 360 55 Other: Voiding Method Indwelling Catheter Indwelling Catheter Indwelling Catheter ABP, PAP, CO, CI - Last Documented Arterial Blood Pressure 149/42 - Exam HEENT head normocephalic and atraumatic Neck is supple no JVD no goiter no lymphadenopathy Chest exam reveals diminished lung sounds, a few scattered rhonchi no wheezing Cardiac exam reveals regular heart sounds S1 and S2 no gallops no murmurs Abdomen is obese, soft nontender no organomegaly with normal bowel sounds Extremity right BKA. Dressing is clean dry and intact Neuro no gross focal neurological deficit.patient is alert and oriented. Pa tient sleepy but wakes up and follows commands. unequal pupils left greater than right. Patient reports he had eye surgery previously unable to recall for what but does report this is chronic. No other neuro deficits noted - Labs CBC & Chem 7: 02/05/19 04:37 02/05/19 04:40 Labs: Abnormal Lab Results - Last 24 Hours (Table) 01/31/19 02/04/19 02/04/19 Range/Units 04:59 04:50 11:43 RBC (4.30-5.90) m/uL Hgb (13.0-17.5) gm/dL Hct (39.0-53.0) % Lymphocytes # (1.0-4.8) k/uL ABG pH (7.35-7.45) ABG pCO2 (35-45) mmHg ABG pO2 (83-108) mmHg ABG HCO3 (21-25) mmol/L ABG Total CO2 (19-24) mmol/L ABG O2 Saturation (94-97) % BUN (9-20) mg/dL Creatinine (0.66-1.25) mg/dL Glucose (74-99) mg/dL POC Glucose (mg/dL) 156 H (75-99) mg/dL Iron 34 L (65-175) ug/dL TIBC 218 L (228-460) ug/dL Ferritin 1686.9 H (22.0-322.0) ng/mL Albumin (3.5-5.0) g/dL Hep Bs Antigen Reactive H (Non-Reactive) 02/04/19 02/04/19 02/04/19 Range/Units 16:32 20:19 20:40 RBC (4.30-5.90) m/uL Hgb (13.0-17.5) gm/dL Hct (39.0-53.0) % Lymphocytes # (1.0-4.8) k/uL ABG pH 7.32 L (7.35-7.45) ABG pCO2 52 H (35-45) mmHg ABG pO2 (83-108) mmHg ABG HCO3 27 H (21-25) mmol/L ABG Total CO2 29 H (19-24) mmol/L ABG O2 Saturation 97.5 H (94-97) % BUN (9-20) mg/dL Creatinine (0.66-1.25) mg/dL Glucose (74-99) mg/dL POC Glucose (mg/dL) 133 H 160 H (75-99) mg/dL Iron (65-175) ug/dL TIBC (228-460) ug/dL Ferritin (22.0-322.0) ng/mL Albumin (3.5-5.0) g/dL Hep Bs Antigen (Non-Reactive) 02/05/19 02/05/19 02/05/19 Range/Units 03:16 04:37 04:40 RBC 3.00 L (4.30-5.90) m/uL Hgb 8.5 L (13.0-17.5) gm/dL Hct 27.4 L (39.0-53.0) % Lymphocytes # 0.9 L (1.0-4.8) k/uL ABG pH 7.33 L (7.35-7.45) ABG pCO2 51 H (35-45) mmHg ABG pO2 129 H (83-108) mmHg ABG HCO3 27 H (21-25) mmol/L ABG Total CO2 28 H (19-24) mmol/L ABG O2 Saturation 98.8 H (94-97) % BUN 45 H (9-20) mg/dL Creatinine 3.31 H (0.66-1.25) mg/dL Glucose 141 H (74-99) mg/dL POC Glucose (mg/dL) (75-99) mg/dL Iron (65-175) ug/dL TIBC (228-460) ug/dL Ferritin (22.0-322.0) ng/mL Albumin 3.0 L (3.5-5.0) g/dL Hep Bs Antigen (Non-Reactive) 02/05/19 Range/Units 06:37 RBC (4.30-5.90) m/uL Hgb (13.0-17.5) gm/dL Hct (39.0-53.0) % Lymphocytes # (1.0-4.8) k/uL ABG pH (7.35-7.45) ABG pCO2 (35-45) mmHg ABG pO2 (83-108) mmHg ABG HCO3 (21-25) mmol/L ABG Total CO2 (19-24) mmol/L ABG O2 Saturation (94-97) % BUN (9-20) mg/dL Creatinine (0.66-1.25) mg/dL Glucose (74-99) mg/dL POC Glucose (mg/dL) 143 H (75-99) mg/dL Iron (65-175) ug/dL TIBC (228-460) ug/dL Ferritin (22.0-322.0) ng/mL Albumin (3.5-5.0) g/dL Hep Bs Antigen (Non-Reactive) Assessment and Plan Assessment: #1 gangrene involving the right fifth toe with surrounding cellulitis Status post amputation of fourth and fifth toe with Dr. Bustillos and status post right BKA. #2 sepsis present on admission as evidenced by fever, leukocytosis, and elevated lactic acid. wound cultures growing gram-negative bacilli. White blood cell improving down to 9.3. patient has completed course of antibiotics per infectious disease no need for antibiotics at this time #3 acute hypoxic and hypercapnic respiratory failure with altered mental status changes secondary to severe sepsis. Patient was transferred to the intensive care unit and placed on mechanical ventilation. patient has been successfully extubated to 2 L. #4. Hypotension secondary to septic shock requiring Levophed for pressure suppor t. resolved #5. Acute kidney injury secondary to ATN secondary to hypotension as well as vancomycin toxicity. Nephrology services are following. Ultrasound completed showing no evidence of hydronephrosis. currently receiving hemodialysis. Permanent hemodialysis catheter placed on 01/29/2019. #6. history of essential hypertension. Cardiology services following. EF 50- 55%. Per cardiology services no evidence of acute coronary syndrome at this time. hydralazine has been added by mouth #7. insulin-dependent diabetes mellitus, with poor control due to noncompliance last hemoglobin A1c was 9.8 at this time will hold glipizide, Januvia and metformin, and cover was insulin to sliding scale will adjust medications as needed. Blood sugars have been in the 200s after episode of hypoglycemia. Patient currently on insulin drip for tight blood sugar control. Insulin drip has been DC'd. Patient started on sliding scale coverage #8. underlying history of diabetic complications of peripheral neuropathy and retinopathy. #9. poor compliance with medical management, patient had extensive counseling in the last year, his A1c was down to 7.1 in June however it was up to 9.8 again recently. #10 underlying history of hyperlipidemia maintained on atorvastatin, on hold. #11. Hypoglycemia. Home meds DC'd. Tube feedings have been initiated. Hypoglycemia has resolved #12. volume overload. Patient maintained on IV Lasix. Nephrology services are following #13. History of glaucoma with previous surgeries to left eye. Unequal pupils which patient reports is chronic. patient maintained on multiple eyedrops #14. increased lethargy likely secondary to narcotics and benzos. these were DC'd per critical care. Resolved DVT prophylaxis heparin. GI prophylaxis Protonix Critical care, vascular surgery, infectious disease, cardiology and nephrology services following PT OT consulted social work consulted will likely need ECF upon discharge I performed an examination of the patient and discussed their management with the Nurse Practitioner. I have reviewed the Nurse Practitioner's notes and agree with the documented findings and plan of care
--- NOTE | 2019-02-05 10:38 | P.PN ---
Subjective Patient is seen in follow-up for acute kidney injury, currently hemodialysis dependent. Denies chest pain or shortness of breath. Oral intake is fair. Urine output near 1 L in the last 24 hours. Creatinine 3.31 today. Patient did not get dialysis yesterday. Vital signs are stable. General: The patient appeared well nourished and normally developed. HEENT: Head exam is unremarkable. Neck is without jugular venous distension. LUNGS: Lungs are clear to auscultation and percussion. Breath sounds decreased. HEART: Rate and Rhythm are regular. First and second heart sounds normal. No murmurs, rubs or gallops. ABDOMEN: Abdominal exam reveals normal bowel sounds. Non-tender and non- distended. No evidence of peritonitis. EXTREMITITES: Trace edema. Right BKA noted. Objective - Vital Signs Vital signs: Vital Signs Temp 98.1 F 02/05/19 08:00 Pulse 75 02/05/19 10:00 Resp 24 02/05/19 10:00 BP 136/62 02/05/19 10:00 Pulse Ox 98 02/05/19 10:00 Intake & Output 02/04/19 02/05/19 02/05/19 18:59 06:59 18:59 Intake Total 319 220 60 Output Total 680 360 55 Balance -361 -140 5 Weight 105 kg Intake: IV 269 220 60 0.9 Normal Saline ( 9 pressure bag) at 3mL/hr Sodium Chloride 0.9% 1, 260 220 60 000 ml @ 20 mls/hr IV . Q24H [facility] Rx#:[id number] Oral 50 Output: Urine 680 360 55 Other: Voiding Method Indwelling Catheter Indwelling Catheter Indwelling Catheter ABP, PAP, CO, CI - Last Documented Arterial Blood Pressure 149/42 - Labs CBC & Chem 7: 02/05/19 04:37 02/05/19 04:40 Labs: Abnormal Lab Results - Last 24 Hours (Table) 01/31/19 02/04/19 02/04/19 Range/Units 04:59 04:50 11:43 RBC (4.30-5.90) m/uL Hgb (13.0-17.5) gm/dL Hct (39.0-53.0) % Lymphocytes # (1.0-4.8) k/uL ABG pH (7.35-7.45) ABG pCO2 (35-45) mmHg ABG pO2 (83-108) mmHg ABG HCO3 (21-25) mmol/L ABG Total CO2 (19-24) mmol/L ABG O2 Saturation (94-97) % BUN (9-20) mg/dL Creatinine (0.66-1.25) mg/dL Glucose (74-99) mg/dL POC Glucose (mg/dL) 156 H (75-99) mg/dL Iron 34 L (65-175) ug/dL TIBC 218 L (228-460) ug/dL Ferritin 1686.9 H (22.0-322.0) ng/mL Albumin (3.5-5.0) g/dL Hep Bs Antigen Reactive H (Non-Reactive) 02/04/19 02/04/19 02/04/19 Range/Units 16:32 20:19 20:40 RBC (4.30-5.90) m/uL Hgb (13.0-17.5) gm/dL Hct (39.0-53.0) % Lymphocytes # (1.0-4.8) k/uL ABG pH 7.32 L (7.35-7.45) ABG pCO2 52 H (35-45) mmHg ABG pO2 (83-108) mmHg ABG HCO3 27 H (21-25) mmol/L ABG Total CO2 29 H (19-24) mmol/L ABG O2 Saturation 97.5 H (94-97) % BUN (9-20) mg/dL Creatinine (0.66-1.25) mg/dL Glucose (74-99) mg/dL POC Glucose (mg/dL) 133 H 160 H (75-99) mg/dL Iron (65-175) ug/dL TIBC (228-460) ug/dL Ferritin (22.0-322.0) ng/mL Albumin (3.5-5.0) g/dL Hep Bs Antigen (Non-Reactive) 02/05/19 02/05/19 02/05/19 Range/Units 03:16 04:37 04:40 RBC 3.00 L (4.30-5.90) m/uL Hgb 8.5 L (13.0-17.5) gm/dL Hct 27.4 L (39.0-53.0) % Lymphocytes # 0.9 L (1.0-4.8) k/uL ABG pH 7.33 L (7.35-7.45) ABG pCO2 51 H (35-45) mmHg ABG pO2 129 H (83-108) mmHg ABG HCO3 27 H (21-25) mmol/L ABG Total CO2 28 H (19-24) mmol/L ABG O2 Saturation 98.8 H (94-97) % BUN 45 H (9-20) mg/dL Creatinine 3.31 H (0.66-1.25) mg/dL Glucose 141 H (74-99) mg/dL POC Glucose (mg/dL) (75-99) mg/dL Iron (65-175) ug/dL TIBC (228-460) ug/dL Ferritin (22.0-322.0) ng/mL Albumin 3.0 L (3.5-5.0) g/dL Hep Bs Antigen (Non-Reactive) 02/05/19 Range/Units 06:37 RBC (4.30-5.90) m/uL Hgb (13.0-17.5) gm/dL Hct (39.0-53.0) % Lymphocytes # (1.0-4.8) k/uL ABG pH (7.35-7.45) ABG pCO2 (35-45) mmHg ABG pO2 (83-108) mmHg ABG HCO3 (21-25) mmol/L ABG Total CO2 (19-24) mmol/L ABG O2 Saturation (94-97) % BUN (9-20) mg/dL Creatinine (0.66-1.25) mg/dL Glucose (74-99) mg/dL POC Glucose (mg/dL) 143 H (75-99) mg/dL Iron (65-175) ug/dL TIBC (228-460) ug/dL Ferritin (22.0-322.0) ng/mL Albumin (3.5-5.0) g/dL Hep Bs Antigen (Non-Reactive) Assessment and Plan Plan: Assessment: 1. Acute kidney injury secondary to ATN secondary to sepsis. Currently hemodialysis dependent via right chest permacath. Creatinine 3.31 today. 2. Acute hypoxic respiratory failure. Now extubated. 3. Right lower extremity ischemia with wet gangrene status post right BKA. 4. Volume overload. Improving with diuresis and ultrafiltration. 5. Metabolic acidosis secondary to acute kidney injury. Expect improvement postdialysis. Stable. Maintained on oral sodium bicarbonate. 6. Hyperphosphatemia secondary to acute kidney injury. Better. Maintained on PhosLo. 7. Anemia. Rule out iron deficiency. Maintained on Aranesp. Plan: Hemodialysis today. Decrease Lasix to 60 mg twice daily. Continue to monitor renal function and urine output.
[2019-02-05 12:01] LABS: Glucose,Whole Blood 225 mg/dL (75-99)
[2019-02-05] MEDS: SODIUM CHLORIDE 0.9% 1,000 ML IV SCH ×2 (12:22→21:20)
[2019-02-05 16:59] LABS: Glucose,Whole Blood 110 mg/dL (75-99)
[2019-02-05 20:38] LABS: Glucose,Whole Blood 191 mg/dL (75-99)
[2019-02-05] MEDS: LATANOPROST 0.005% OPHTH DROPS 2.5 ML BTL LEFT EYE SCH (21:18)
[2019-02-05] MEDS: SODIUM CHLORIDE 0.9% 500 ML IV SCH (21:22)
[2019-02-06] MEDS: HEPARIN SODIUM,PORCINE 5,000 UNIT/ML 1 ML VIAL SQ SCH ×4 (00:24→23:17)
[2019-02-06 05:54] LABS: Basophils # (A) 0.1 k/uL (0-0.2); Basophils % (A) 1 %; Eosinophils # (A) 0.5 k/uL (0-0.7); Eosinophils % (A) 7 %; HCT 27.9 % (39.0-53.0); HGB 9.1 gm/dL (13.0-17.5); Hypochromasia Moderate; Lymphocytes # (A) 1.2 k/uL (1.0-4.8); Lymphocytes % (A) 17 %; MCH 30.2 pg (25.0-35.0); MCHC 32.5 g/dL (31.0-37.0); MCV 92.9 fL (80.0-100.0); Mean Platelet Volume 8.9; Monocytes # (A) 0.5 k/uL (0-1.0); Monocytes % (A) 8 %; Neutrophils # (A) 4.5 k/uL (1.3-7.7); Neutrophils % (A) 64 %; Platelet Count 232 k/uL (150-450); RDW 13.5 % (11.5-15.5)
[2019-02-06 06:05] LABS: Albumin 3.1 g/dL (3.5-5.0); Calcium 8.5 mg/dL (8.4-10.2); Potassium 4.4 mmol/L (3.5-5.1); Total Bilirubin 0.5 mg/dL (0.2-1.3); Total Protein 6.9 g/dL (6.3-8.2)
[2019-02-06 06:50] LABS: Glucose,Whole Blood 163 mg/dL (75-99)
[2019-02-06] MEDS: INSULIN ASPART (NovoLOG) 100 UNIT/ML VIAL SQ SCH ×5 (07:04→20:48)
[2019-02-06] MEDS: FLUoxetine HCL 20 MG CAP PO SCH (09:09)
[2019-02-06] MEDS: hydrALAZINE HCL 25 MG TAB PO SCH ×3 (09:09→20:54)
[2019-02-06] MEDS: CALCIUM ACETATE 667 MG TAB PO SCH ×3 (09:09→15:40)
[2019-02-06] MEDS: GABAPENTIN 100 MG CAP PO SCH ×3 (09:09→20:54)
[2019-02-06] MEDS: FUROSEMIDE 10 MG/ML 10 ML VIAL IV SCH (09:10)
[2019-02-06] MEDS: PANTOPRAZOLE 40 MG/10 ML VIAL IV SCH (09:10)
[2019-02-06] MEDS: BRIMONIDINE TARTRATE 0.2% DROPS 5 ML BTL LEFT EYE SCH ×3 (09:11→20:53)
[2019-02-06] MEDS: DORZOLAMIDE HCL 2% DROPS 10 ML BTL LEFT EYE SCH ×3 (09:11→20:53)
--- NOTE | 2019-02-06 10:03 | P.PN ---
Subjective Progress Note Date: 02/06/19 Refugio Saenz, is a 68-year-old male who presented to [facility] emergency room with pain in the right foot, he was evaluated in emergency room and had blackish discoloration of the right fifth toe with surrounding erythema and tenderness, patient was started on IV antibiotics Zosyn, vancomycin, and clindamycin, he was admitted to medical floor vascular surgery consultation was requested for possible amputation due to evidence of gangrene. Infectious disease consultation was requested. Patient has a known history of insulin-dependent diabetes mellitus, his glucose level was well controlled up until September of this year his A1c in June was 7.1 and in September was 7.3 however apparently patient stopped taking his insulin and his medications and his A1c was up to 9.8 in November, he has a known history of right foot ulcer he was admitted to the hospital with right foot cellulitis and ulcer in 2014 and he was followed at the wound care clinic in 2015 however he was doing well up until recently. Patient also has a known history of hypertension, hyperlipidemia, he denies any history of coronary artery disease or congestive heart failure, he had an echocardiogram done in 2014 at that time he had normal left ventricular function was normal ejection fraction, no significant valvular disease and no pulmonary hypertension. 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 On 01/17/2019 patient's alert and oriented 3. Patient had fourth and fifth toe amputation with Dr. Bustillos this morning. Patient having some low blood pressure will give 500 mL bolus. Patient denies chest pain or shortness of breath. Patient denies nausea vomiting or diarrhea. Patient is having some increased pain to foot area pain medications ordered 01/18/2019, patient seen eval examined while covering for Dr. Granger, waking up this morning slightly slow to respond but not confused, breathing comfortably denies any chest pain labs reviewed today patient has been evaluated by Dr. Bassett, white cell count is coming down to 19,000, lactic acid level is normalized, patient has been on broad-spectrum antibiotics with vascular surgery on board 01/19/2019, patient seen and evaluated examined in the ICU intubated on full ventilator support, patient had gradual loss of consciousness has been more lethargic arterial blood gases were checked shows hypercapnic and hypoxic respiratory failure was intubated in the ICU, patient has been placed on propof ol he was volume depleted depleted aggressive fluid resuscitation were performed, is still requiring levophed intermittently, patient was also noted to be hypoglycemic 7030 insulin and other oral hypoglycemic agents were discontinued, ultrasound of the abdomen has been performed which is reviewed no obvious hydronephrosis seen, patient has decreased urine output along with rising BUN/creatinine appeared to be acute tubular necrosis, patient also requiring intermittent bolus of D10 for hypoglycemia, wounds has been evaluated by vascular surgery noted recommendation, patient has very poor venous access, will put a central line in, critical care time 45 minutes during procedure, due to altered mental status CT of the head was performed which was negative On 01/20/2019 patient remains in the intensive care unit on mechanical ventilation. Levophed has been on hold blood pressures has sustained. Creatinine has increased to 4.17 and bun 56. Nephrology services are following. Per nursing staff patient does follow commands during sedation holiday ABGs have improved. Discussed case with vascular surgeon nurse practitioner possible BKA discussion. White blood cell decreasing to 16.0. Critical care services are following. Patient remains on Zosyn for IV antibiotics. Infectious disease following 01/21/2019 patient remains on mechanical ventilation on in the intensive care unit. Patient remains sedated, on propofol. However per nursing staff patient does follow commands during sedation holiday. Patient is on 50% FiO2, 5 PEEP, tidal volume 500. Levophed off since 01/20/20. Blood pressure remains in the 130's-150's systolic. Creatinine 4.35 from 4.17 and BUN 57 from 56, Calcium 7.0, phosphorus 5.9 Nephrology is following. Orogastric tube replaced this morning. Per nursing staff OG tube was coiled in patient's mouth with tube feeds running. Chest x-ray repeated, no significant change from previous. ABG improving, still metabolic acidosis. WBC of 14.1 down from 16. Afebrile. Infectious disease is following patient is maintained on Zosyn. Will send C. diff sample due to new onset diarrhea for 1 day. Hyperglycemia noted (glucose 200's). Will discuss tube feed formula with dietary. If no changes can be made will adjust sliding scale. On 01/22/2019 patient remains sedated on mechanical ventilation in the intensive care unit. Per nursing staff patient is to have a BKA today with Dr. Bustillos. Patient remains off pressors, blood pressure has been stable. Chest x-ray repeated this morning, per pulmonary. No significant change in ABGs. Creatinine continues to increase, 4.84 today BUN 60, patient is still making adequate urine output nephrology is following. Tube feeds on hold, for pending OR. WBC 14.2, temperature overnight 100F. Please is following patient is maintained on Zosyn. C. diff sample was negative. 01/23/2019 patient remains sedated and on mechanical ventilation in the ICU. He underwent right BKA yesterday, 01/22/[address] Bustillos. Estimated blood loss 150 mL. He had a temp of 100 last night. Urine output is about 50 mL per hour. Creatinine has gone down from 4.84-4.82. Nephrology is following closely. No plans for hemodialysis yet. Patient's blood sugars are starting to become more elevated. They're in the 180s to 200s. Tube feedings are being adjusted. White count 13.7 hemoglobin 10.3 On 01/24/2019 patient remains sedated on mechanical ventilation in the intensive care unit. Decreased urine output throughout night. Creatinine 5.15 and bun 68. Patient remains on insulin drip. WBC 14.1. Patient having low-grade temps. Patient remains closely followed by critical care consulting providers On 01/25/2019 patient was seen and examined in the intensive care unit, he is currently alert and maintained on BiPAP trial, he is making more urine output, and no hemodialysis is scheduled at this time, creatinine improved, down from 5.15-4.44 white blood count down to 11.3 patient is followed by nephrology, infectious disease, pulmonary and critical care and vascular surgery On 01/26/2019 patient was seen and examined in the ICU, he is intubated sedated maintained on mechanical ventilation, creatinine went up today and he was started on hemodialysis, Zosyn has today, at this time will resume Zosyn, we have asked infectious disease to see patient and reassess antibiotics, otherwise patient is stable there is no fever or chills, he continues to have a rectal tube and having large amount of diarrhea, C. diff was checked and was negative will repeat test today. On 01/27/2019 patient remains on mechanical ventilation in the intensive care unit. Creatinine trending down today 4.76 and bun 77. Patient remains on Lasix drip per nephrology services. White count 11.8. She remains on IV Zosyn. Sedation holiday performed per nursing staff and critical care recommendation. On 01/28/2019 patient remains in the intensive care unit on mechanical ventilation. Sedation currently turned off. Patient is awake and following commands possible extubation today per critical care. Patient also received hemodialysis this will be the patient's third round of hemodialysis. Creatinine is trending down 4.44. Patient remains on Lasix drip. On 01/29/2019 patient remains in ICU intubated sedated maintained on mechanical ventilation, he had to CPAP trials yesterday, he is still maintained on hemodialysis, creatinine is elevated at 4.8 and BUN 89. On 01/30/2019 patient remains on mechanical ventilation in the intensive care unit. Patient is off sedation at this time and following commands. CPAP trial in place. Possible extubation today. Patient currently getting hemodialysis. Permanent hemodialysis catheter placed yesterday. Creatinine is trending down. Patient taken off insulin drip. on 01/31/2019 patient remains in intensive care unit on mechanical ventilation. Discussed case with critical care doctor Dr. Dominguez Yesterday. Patient unable to wean. we'll continue to monitor patient over the weekend and consider possible trach next week. Patient also received hemodialysis yesterday. On 02/01/2019 patient was seen and examined in the ICU he is intubated and maegan ntained on mechanical ventilation sedation is being stopped now for CPAP trial on 02/02/2019 patient was seen and examined in the ICU he has been extubated since yesterday, he is tolerating well maintained on oxygen via nasal cannula, he seems somnolent however he is opening his eyes and answering questions by nodding his head and trying to speak, there is no fever or chills no headache or dizziness no chest pain no shortness of breath he has occasional cough no nausea or vomiting no abdominal pain. on 02/03/2019 patient is currently sitting up in chair on nasal cannula. Patient does wake up and follow commands. Per nursing staff antibiotics due to ID is following per nursing will get a hold of infectious disease to further evaluate need for antibiotics. at this time patient denies chest pain or shortness of breath. Patient denies nausea vomiting or diarrhea. Patient denies any urinary burning or frequency. patient to receive hemodialysis today remains on IV Lasix on 02/04/2019 patient is currently resting comfortably in bed. Patient is alert and oriented. Per nursing staff patient no longer needs antibiotics Dr. Bassett is following for infectious disease.patient received dialysis yesterday will receive hemodialysis again tomorrow maintained on IV Lasix. Elevated blood pressure. Hydralazine by mouth has been added. At this time patient denies chest pain or shortness of breath. Patient denies nausea vomiting or diarrhea. Patient denies any urinary burning or frequency. on 02/05/2019 patient is currently resting comfortably in chair. Per nursing staff patient had episode of increased lethargy last night requiring BiPAP and Narcan. per critical care and narcotics and benzos were DC'd at this time. Patient is now awake and alert 3. Patient able to follow commands and answer all questions. Patient denies any chest pain or shortness of breath. Patient denies nausea vomiting or diarrhea. Patient denies any urinary burning or frequency. 02/06/2019 patient is currently resting comfortably in bed.Patient did undergo hemodialysis yesterday. Lasix has been decreased per nephrology. Patient denies chest pain or shortness of breath. Patient denies vomiting or diarrhea. Patient denies any urinary burning or frequency. Working on discharge planning possible discharge to ECF next week. Objective - Vital Signs Vital signs: Vital Signs Temp 98.0 F 02/06/19 08:00 Pulse 66 02/06/19 09:00 Resp 17 02/06/19 09:00 BP 121/60 02/06/19 09:00 Pulse Ox 99 02/06/19 09:00 Intake & Output 02/05/19 02/06/19 02/06/19 18:59 06:59 18:59 Intake Total 260 240 40 Output Total 2180 52 45 Balance -1920 188 -5 Weight 105 kg 106.1 kg Intake: IV 260 240 40 Sodium Chloride 0.9% 1, 260 240 40 000 ml @ 20 mls/hr IV . Q24H [facility] Rx#:[id number] Output: Urine 430 52 45 Hemodialysis 1750 Other: Voiding Method Indwelling Catheter Indwelling Catheter ABP, PAP, CO, CI - Last Documented Arterial Blood Pressure 149/42 - Exam HEENT head normocephalic and atraumatic Neck is supple no JVD no goiter no lymphadenopathy Chest exam reveals diminished lung sounds, a few scattered rhonchi no wheezing Cardiac exam reveals regular heart sounds S1 and S2 no gallops no murmurs Abdomen is obese, soft nontender no organomegaly with normal bowel sounds Extremity right BKA. Dressing is clean dry and intact Neuro no gross focal neurological deficit.patient is alert and oriented. Patient sleepy but wakes up and follows commands. unequal pupils left greater than right. Patient reports he had eye surgery previously unable to recall for what but does report this is chronic. No other neuro deficits noted - Labs CBC & Chem 7: 02/06/19 05:25 02/06/19 05:25 Labs: Abnormal Lab Results - Last 24 Hours (Table) 02/05/19 02/05/19 02/05/19 Range/Units 11:59 16:58 20:36 RBC (4.30-5.90) m/uL Hgb (13.0-17.5) gm/dL Hct (39.0-53.0) % Chloride (98-107) mmol/L Carbon Dioxide (22-30) mmol/L BUN (9-20) mg/dL Creatinine (0.66-1.25) mg/dL Glucose (74-99) mg/dL POC Glucose (mg/dL) 225 H 110 H 191 H (75-99) mg/dL Albumin (3.5-5.0) g/dL 02/06/19 02/06/19 02/06/19 Range/Units 05:25 05:25 06:48 RBC 3.00 L (4.30-5.90) m/uL Hgb 9.1 L (13.0-17.5) gm/dL Hct 27.9 L (39.0-53.0) % Chloride 110 H (98-107) mmol/L Carbon Dioxide 19 L (22-30) mmol/L BUN 27 H (9-20) mg/dL Creatinine 2.47 H (0.66-1.25) mg/dL Glucose 175 H (74-99) mg/dL POC Glucose (mg/dL) 163 H (75-99) mg/dL Albumin 3.1 L (3.5-5.0) g/dL Assessment and Plan Assessment: #1 gangrene involving the right fifth toe with surrounding cellulitis Status post amputation of fourth and fifth toe with Dr. Bustillos and status post right BKA. #2 sepsis present on admission as evidenced by fever, leukocytosis, and elevated lactic acid. wound cultures growing gram-negative bacilli. White blood cell improving down to 9.3. patient has completed course of antibiotics per infectious disease no need for antibiotics at this time #3 acute hypoxic and hypercapnic respiratory failure with altered mental status changes secondary to severe sepsis. Patient was transferred to the intensive care unit and placed on mechanical ventilation. patient has been successfully extubated to 2 L. #4. Hypotension secondary to septic shock requiring Levophed for pressure support. resolved #5. Acute kidney injury secondary to ATN secondary to hypotension as well as vancomycin toxicity. Nephrology services are following. Ultrasound completed showing no evidence of hydronephrosis. currently receiving hemodialysis. Permanent hemodialysis catheter placed on 01/29/2019. #6. history of essential hypertension. Cardiology services following. EF 50- 55%. Per cardiology services no evidence of acute coronary syndrome at this time. hydralazine has been added by mouth #7. insulin-dependent diabetes mellitus, with poor control due to noncompliance last hemoglobin A1c was 9.8 at this time will hold glipizide, Januvia and metformin, and cover was insulin to sliding scale will adjust medications as needed. Blood sugars have been in the 200s after episode of hypoglycemia. Patient currently on insulin drip for tight blood sugar control. Insulin drip has been DC'd. Patient started on sliding scale coverage #8. underlying history of diabetic complications of peripheral neuropathy and retinopathy. #9. poor compliance with medical management, patient had extensive counseling in the last year, his A1c was down to 7.1 in June however it was up to 9.8 again recently. #10 underlying history of hyperlipidemia maintained on atorvastatin, on hold. #11. Hypoglycemia. Home meds DC'd. Tube feedings have been initiated. Hypoglycemia has resolved #12. volume overload. Patient maintained on IV Lasix. Nephrology services are following #13. History of glaucoma with previous surgeries to left eye. Unequal pupils which patient reports is chronic. patient maintained on multiple eyedrops #14. increased lethargy likely secondary to narcotics and benzos. these were DC'd per critical care. Resolved DVT prophylaxis heparin. GI prophylaxis Protonix Critical care, vascular surgery, infectious disease, cardiology and nephrology services following PT OT consulted social work consulted will likely need ECF upon discharge I performed an examination of the patient and discussed their management with the Nurse Practitioner. I have reviewed the Nurse Practitioner's notes and agree with the documented findings and plan of care
--- NOTE | 2019-02-06 10:28 | P.PN ---
Subjective Patient is seen in follow-up for acute kidney injury, currently hemodialysis dependent. Denies chest pain or shortness of breath. Oral intake is fair. Urine output about 500 cc in the last 24 hours. [facility] HD 02/05/19. PO intake fair. Vital signs are stable. General: The patient appeared well nourished and normally developed. HEENT: Head exam is unremarkable. Neck is without jugular venous distension. LUNGS: Lungs are clear to auscultation and percussion. Breath sounds decreased. HEART: Rate and Rhythm are regular. First and second heart sounds normal. No murmurs, rubs or gallops. ABDOMEN: Abdominal exam reveals normal bowel sounds. Non-tender and non- distended. No evidence of peritonitis. EXTREMITITES: Trace edema. Right BKA noted. Objective - Vital Signs Vital signs: Vital Signs Temp 98.0 F 02/06/19 08:00 Pulse 66 02/06/19 09:00 Resp 17 02/06/19 09:00 BP 121/60 02/06/19 09:00 Pulse Ox 99 02/06/19 09:00 Intake & Output 02/05/19 02/06/19 02/06/19 18:59 06:59 18:59 Intake Total 260 240 40 Output Total 2180 52 45 Balance -1920 188 -5 Weight 105 kg 106.1 kg Intake: IV 260 240 40 Sodium Chloride 0.9% 1, 260 240 40 000 ml @ 20 mls/hr IV . Q24H [facility] Rx#:[id number] Output: Urine 430 52 45 Hemodialysis 1750 Other: Voiding Method Indwelling Catheter Indwelling Catheter ABP, PAP, CO, CI - Last Documented Arterial Blood Pressure 149/42 - Labs CBC & Chem 7: 02/06/19 05:25 02/06/19 05:25 Labs: Abnormal Lab Results - Last 24 Hours (Table) 02/05/19 02/05/19 02/05/19 Range/Units 11:59 16:58 20:36 RBC (4.30-5.90) m/uL Hgb (13.0-17.5) gm/dL Hct (39.0-53.0) % Chloride (98-107) mmol/L Carbon Dioxide (22-30) mmol/L BUN (9-20) mg/dL Creatinine (0.66-1.25) mg/dL Glucose (74-99) mg/dL POC Glucose (mg/dL) 225 H 110 H 191 H (75-99) mg/dL Albumin (3.5-5.0) g/dL 02/06/19 02/06/19 02/06/19 Range/Units 05:25 05:25 06:48 RBC 3.00 L (4.30-5.90) m/uL Hgb 9.1 L (13.0-17.5) gm/dL Hct 27.9 L (39.0-53.0) % Chloride 110 H (98-107) mmol/L Carbon Dioxide 19 L (22-30) mmol/L BUN 27 H (9-20) mg/dL Creatinine 2.47 H (0.66-1.25) mg/dL Glucose 175 H (74-99) mg/dL POC Glucose (mg/dL) 163 H (75-99) mg/dL Albumin 3.1 L (3.5-5.0) g/dL Assessment and Plan Plan: Assessment: 1. Acute kidney injury secondary to ATN secondary to sepsis. Currently hemodialysis dependent via right chest permacath. Last HD 02/05/19. 2. Acute hypoxic respiratory failure. Now extubated. 3. Right lower extremity ischemia with wet gangrene status post right BKA. 4. Volume overload. Improving with diuresis and ultrafiltration. 5. Metabolic acidosis secondary to acute kidney injury. Expect improvement postdialysis. Maintained on oral sodium bicarbonate. 6. Hyperphosphatemia secondary to acute kidney injury. Better. Maintained on PhosLo. 7. Anemia. Iron def noted. Ferritin high. Maintained on Aranesp. Plan: Hold HD today - will plan for tomorrow. D/c Lasix. Continue to monitor renal function and urine output.
[2019-02-06] MEDS: TIMOLOL 0.5% OPHTH DROPS 5 ML BTL LEFT EYE SCH ×2 (11:33→20:53)
[2019-02-06] MEDS: SODIUM BICARBONATE TAB 650 MG TAB PO SCH ×2 (11:33→20:54)
[2019-02-06 11:55] LABS: Glucose,Whole Blood 176 mg/dL (75-99)
--- NOTE | 2019-02-06 14:37 | P.PN ---
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, poor compliance, dyslipidemia, dehydration 02/06/2019, patient seen eval examined during the rounds labs reviewed medications reviewed patient has been awake and alert on 2 L oxygen urine output has been minimal patient has been taken off of Lasix now, get a hemodialysis tomorrow, patient can moved out of the ICU will continue to avoid benzos and narcotics in continue BiPAP support each night and when necessary during the day 02/04/2019, patient seen and evaluated examined during the rounds labs reviewed medications reviewed care plan discussed with the patient and staff at length vibha avalos is on 2 L oxygen breathing comfortably he had BiPAP treatment yesterday which she tolerated for 5-6 hours, he is well oriented 3 he is actively undergoing physical therapy for profound weakness, his BUN/creatinine improved to 36 and 2.98 02/03/2019, patient seen eval examined during the rounds labs reviewed medications reviewed care plan discussed with the patient and staff at length he is doing well on 2 L oxygen, severe degree of generalized weakness is present though, patient has using BiPAP machine each night and when necessary during the day, patient is undergoing hemodialysis plan is to remove 2-1/2 L, so far he has been tolerating dialysis very well, February 02 2019, patient seen eval examined during the rounds labs reviewed medications reviewed radiographic studies reviewed as well, patient has been placed on CPAP of 5 pressure support 18 has been doing very well with that arterial blood gas in weaning parameters are reviewed even though patient appears to be in weeks' side but feel that patient can be successfully extubated proceeded with extubation, patient has been placed on 4 L nasal cannula postextubation he has a weak cough I have instructed staff to get him out of the bed with deep breathing and cough, patient will require BiPAP H night and when necessary during the day setting have been adjusted, continue Lasix when necessary seems to be making urine patient is due for dialysis tomorrow as well, critical care time spent 35 minutes 02/01/2019, patient seen eval examined during the rounds Asians propofol is slowly being titrated down, patient is undergoing hemodialysis so far 1 L of fluid has been removed one hour dialysis still left, one and half liter to be removed as well patient tolerated the procedure very well, labs reviewed medications reviewed x-ray reviewed as well once patient is done with the dialysis will put patient on CPAP and pressure support if tolerated very well then consider weaning and extubation 01/31/2019, protocol has been discontinued patient is still somnolent but does respond to physical stimuli patient will be placed on CPAP and pressure support once a relatively more awake will continue the weaning trials as tolerated patient is not due for dialysis today the x-ray reviewed labs reviewed as, chest x-ray continued to show evidence of fluid overload right-sided dialysis catheter is stable, hemoglobin stable at 7.9, the biopsy in normal limit, arterial blood gases shows resolution of severe metabolic acidosis, BUN/creatinine improved to 54 and 3.42, sugar is slightly elevated patient has been getting insulin sliding scale and as per protocol 01/30/2019, patient seen eval examined during the rounds labs reviewed medications reviewed care plan discussed with the staff and primary service at length patient has a CPAP pressure support trial today unable to tolerate for longer period time just lasted for 15 minutes started having desaturation and was extremely short of breath, switch back to assist control mode, patient however has a successful dialysis about 2 L of fluid has been removed patient will get another dialysis trial tomorrow, labs reviewed radiographic studies reviewed, x-ray still showing fluid overload changes no significant change has been notedAmmann patient also underwent dialysis catheter placement, we'll continue CPAP pressure support trial as the fluid has been removed with the dialysis, if unsuccessful then consideration of trach and PEG will be entertained early next week, his sugars are better controlled his been switched from insulin drip to sliding scale insulin with twice a day dose 01/28/2019 Pt seen and examined care plan reviewed during AM rounds had trouble d dialysis due to catheter clogging, renal fx slightly better, cxr not much changed, ABG post cpap/ps suggestive of mild resp acidosis and predominantly Metabolic acidosis, feel that pt would require at least 2-3 more cycles of dialysis before successfully take him of of Vent, would recommend daily dialysis 01/27/2019, patient seen eval examined during the rounds patient is due for dialysis today, remains on full vent setting but however undergoing CPAP pressure support trial with 5 and 10 tolerating very well, per support will be decreased to 5, patient is due for another dialysis later on today, tomorrow will do the CPAP and pressure support and check a blood gas afterwards if does well then possibly extubate, chest x-ray continue show bilateral basilar atelectasis but overall they remained stable labs reviewed medications reviewed care plan discussed with the respiratory therapist and research staff member at length critical care time spent 35 minutes 01/26/2019, patient seen elizabeth examined during the rounds labs reviewed medications reviewed, patient has been on Lasix drip 10 mg an hour also on propofol drip 10 mcg, patient had a hemodialysis done here earlier today with intent to remove the fluid, patient will get another hemodialysis tomorrow as well, has placed patient on CPAP of 5 pressure support of 10 is spontaneously breathing the rate is about 16-18 and tidal volume 350-400 range, extensive amount of secretions are present still, patient is not ready not ready for extubation but however they're indeed ready for weaning would recommend continued to do hemodialysis on a daily basis for at least 3 or 4 days so that volume overload can be dealt with, right cell count is 12,000 and hemoglobin and hematocrit remained stable arterial blood gas reviewed still have significant metabolic acidosis, renal function continued decline progressively BUN and creatinine up to 84 and 5.2, remains on Zosyn, chest x-ray as above noted to have worsening changes due to fluid overload, culture not growing anything, insulin drip is on sugars better controlled now 01/24/2019, patient seen elizabeth reexamined during the rounds critical care time 35 minutes, patient has a weaning attempt with CPAP and pressure support but was not completed as patient is due for hemodialysis catheter placement in right femoral vein the renal service thinking about hemodialysis tomorrow breathing remains stable patient remains on assist control rate of 18 FiO2 of 50% 5 of PEEP, and renal function continued to deteriorate gradually being output slowly declining 01/23/2019, patient seen elizabeth examined during the rounds labs reviewed medications reviewed care plan discussed with the staff at length and had a short weaning attempt and a sedation holiday with which he tolerated for short period of time then becomes tachypneic put back on respirator fit. We'll patient has been diuresing fairly well has been negative for the first time, urine output of 30-40 mL an hour. BUN/creatinine remains stable, patient is postop day #1 of the BKA, chest x-ray from today reviewed findings are most suggestive of fluid overload less likely to be pneumonia, the ET tube and central line and NG tube was stable, white cell count is 13,000 arterial blood gases remained stable, BUN/creatinine gradually going up is 60 and 4.8 to, sugar is running on the higher side last check sugar was over 260 patient is being started on insulin drip 01/21/2019, patient seen and evaluated examined during the rounds labs reviewed medications reviewed, patient the remains on sedation with propofol mildly sedated he does wake up follow simple commands and munira -1-2, he remains on IV fluids gently being rehydrated 50 mL an hour to feed is being given this morning patient noted to have a tube coiling in the mouth as He is to have pulled out late morning hours, the need to be has been placed position has been confirmed c hest x-ray continued to show for evidence of fluid overload and this should edema along with possible infiltrate, he remains on assist control rate of 18 and tidal volume of 505 of PEEP and oxygen is 50% he is +1.2 L since morning, care plan discussed with nephrology as well as the vascular surgery, as his BUN and creatinine continued to go up creatinine is 5.1 in spite of good adequate urine output, patient continue on broad-spectrum antibiotic when setting remains stable respiratory secretions are still thick tenacious and appears to be improving slowly, blood cultures and sputum culture has been negative, need to make eyes and nose on the negative side as well as would like to see been fu nction improving before consideration of weaning that anticipate will take another 24-48 hours 01/20/2019, patient seen eval examined during the rounds and labs reviewed medications reviewed critical care time spent 35 minutes, patient remains on assist control rate 18 and tidal volume of 500 along with PEEP of 5, patient is sedated with propofol drip but doesn't respond to simple stimuli, patient has been making good amount of urine levo fed is not require S patient is hemodynamically stable urine output has improved to 50-60 mL an hour post Lasix which is advised by nephrology service urine output has improved, patient has been tolerating tube feed well given that volume overload situation due to hypotension and was given fluid for resuscitation patient gently being diuresed, she he remains on broad-spectrum antibiotic sliding scale insulin labs reviewed medications reviewed care plan discussed with the staff and 2 brothers at bedside at length, chest x-ray from today reviewed bilateral atelectasis and fluid overload is present overall suggestive of more of his CHF and pneumonia, white cell count is stable, arterial blood gases improved, BUN/creatinine continue to go up 56 and 4.17, sugars have been stabilized 01/19/2019, patient seen and evaluated examined in the ICU intubated on full ventilator support, patient had gradual loss of consciousness has been more lethargic arterial blood gases were checked shows hypercapnic and hypoxic respiratory failure was intubated in the ICU, patient has been placed on propofol he was volume depleted depleted aggressive fluid resuscitation were performed, is still require levo fed intermittently, patient was also noted to be hypoglycemic 7030 insulin and other oral hypoglycemic agents were discontinued, ultrasound of the abdomen has been performed which is reviewed no obvious hydronephrosis seen, patient has decreased urine output along with rising BUN/creatinine appeared to be acute tubular necrosis, patient also requiring intermittent bolus of D10 for hypoglycemia, wounds has been evaluated by vascular surgery noted recommendation, patient has very poor venous access, will put a central line in, critical care time 45 minutes during procedure, due to altered mental status CT of the head was performed which was negative 01/18/2019, patient seen eval examined while covering for Dr. Granger, waking up this morning slightly slow to respond but not confused, breathing comfortably denies any chest pain labs reviewed today patient has been evaluated by Dr. Bassett, white cell count is coming down to 19,000, lactic acid level is normalized, patient has been on broad-spectrum antibiotics with vascular surgery on board Objective - Vital Signs Vital signs: Vital Signs Temp 98.1 F 02/06/19 12:00 Pulse 71 02/06/19 12:00 Resp 24 02/06/19 12:00 BP 126/58 02/06/19 12:00 Pulse Ox 97 02/06/19 12:00 Intake & Output 02/05/19 02/06/19 02/06/19 18:59 06:59 18:59 Intake Total 260 240 120 Output Total 2180 52 70 Balance -1920 188 50 Weight 105 kg 106.1 kg Intake: IV 260 240 120 Sodium Chloride 0.9% 1, 260 240 120 000 ml @ 20 mls/hr IV . Q24H [place] Rx#:[id number] Output: Urine 430 52 70 Hemodialysis 1750 Other: Voiding Method Indwelling Catheter Indwelling Catheter Indwelling Catheter ABP, PAP, CO, CI - Last Documented Arterial Blood Pressure 149/42 - Exam Intubated on full vent support on propofol getting IV fluids normal saline , assessed pre-and post extubation HEENT head normocephalic and atraumatic Neck is supple no JVD no goiter no lymphadenopathy Chest exam reveals a few scattered rhonchi no wheezing Cardiac exam reveals regular heart sounds S1 and S2 no gallops no murmurs Abdomen is soft nontender no organomegaly with normal bowel sounds Extremity exam status post right BKA Neuro no gross focal neurological deficit, patient has anisocoria - Labs CBC & Chem 7: 02/06/19 05:25 02/06/19 05:25 Labs: Abnormal Lab Results - Last 24 Hours (Table) 02/05/19 02/05/19 02/06/19 Range/Units 16:58 20:36 05:25 RBC 3.00 L (4.30-5.90) m/uL Hgb 9.1 L (13.0-17.5) gm/dL Hct 27.9 L (39.0-53.0) % Chloride (98-107) mmol/L Carbon Dioxide (22-30) mmol/L BUN (9-20) mg/dL Creatinine (0.66-1.25) mg/dL Glucose (74-99) mg/dL POC Glucose (mg/dL) 110 H 191 H (75-99) mg/dL Albumin (3.5-5.0) g/dL 02/06/19 02/06/19 02/06/19 Range/Units 05:25 06:48 11:54 RBC (4.30-5.90) m/uL Hgb (13.0-17.5) gm/dL Hct (39.0-53.0) % Chloride 110 H (98-107) mmol/L Carbon Dioxide 19 L (22-30) mmol/L BUN 27 H (9-20) mg/dL Creatinine 2.47 H (0.66-1.25) mg/dL Glucose 175 H (74-99) mg/dL POC Glucose (mg/dL) 163 H 176 H (75-99) mg/dL Albumin 3.1 L (3.5-5.0) g/dL Assessment and Plan Assessment: Altered mental status Hypoxic and hypercapnic respiratory failure Acute on chronic renal failure Bilateral atelectasis and possible aspiration pneumonia Fluid overload and acute interstitial edema Severe hyperglycemia 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 Sepsis and septic shock Insulin-dependent diabetes mellitus poorly controlled, being started on insulin drip Hypertension hypertensive cardiovascular disease Dyslipidemia Plan: doing well on 2 L nasal cannula Will use BiPAP each night and when necessary during the day continue sliding scale insulin Monitor renal functions closely once patient is negative and renal function improving we will initiate the weaning processs chest PT and physical therapy Up on chair increase activity as tolerated Continue gentle diuresis continue dialysis as planned Broad-spectrum antibiotics Time with Patient: Greater than 30
[2019-02-06] MEDS: DARBEPOETIN ALFA 60 MCG/0.3 ML SYRINGE SQ SCH (15:40)
[2019-02-06] MEDS: CHLORHEXIDINE GLUCONATE 15 ML CUP MUCOUS MEM SCH (17:02)
[2019-02-06 18:08] LABS: Glucose,Whole Blood 200 mg/dL (75-99)
[2019-02-06 20:41] LABS: Glucose,Whole Blood 149 mg/dL (75-99)
[2019-02-06] MEDS: LATANOPROST 0.005% OPHTH DROPS 2.5 ML BTL LEFT EYE SCH (20:54)
[2019-02-06] MEDS: SODIUM CHLORIDE 0.9% 500 ML IV SCH (22:45)
[2019-02-07 06:18] LABS: Glucose,Whole Blood 159 mg/dL (75-99)
[2019-02-07] MEDS: INSULIN ASPART (NovoLOG) 100 UNIT/ML VIAL SQ SCH ×4 (06:31→20:33)
[2019-02-07] MEDS: CALCIUM ACETATE 667 MG TAB PO SCH ×3 (06:31→17:23)
[2019-02-07 08:09] LABS: Albumin 3.1 g/dL (3.5-5.0); Calcium 8.6 mg/dL (8.4-10.2); Potassium 4.6 mmol/L (3.5-5.1); Total Bilirubin 0.4 mg/dL (0.2-1.3); Total Protein 6.9 g/dL (6.3-8.2)
[2019-02-07 08:14] LABS: Basophils # (A) 0.1 k/uL (0-0.2); Basophils % (A) 1 %; Eosinophils # (A) 0.4 k/uL (0-0.7); Eosinophils % (A) 6 %; HCT 29.2 % (39.0-53.0); HGB 9.7 gm/dL (13.0-17.5); Hypochromasia Marked; Lymphocytes % (A) 13 %; MCH 31.7 pg (25.0-35.0); MCHC 33.3 g/dL (31.0-37.0); MCV 95.3 fL (80.0-100.0); Mean Platelet Volume 8.9; Monocytes # (A) 0.7 k/uL (0-1.0); Monocytes % (A) 10 %; Neutrophils # (A) 5.3 k/uL (1.3-7.7); Neutrophils % (A) 69 %; Platelet Count 239 k/uL (150-450); RBC 3.06 m/uL (4.30-5.90); RDW 13.6 % (11.5-15.5); WBC 7.6 k/uL (3.8-10.6)
[2019-02-07 08:54] LABS: Poikilocytosis (M) Present
[2019-02-07] MEDS: GABAPENTIN 100 MG CAP PO SCH ×3 (09:08→20:38)
[2019-02-07] MEDS: hydrALAZINE HCL 25 MG TAB PO SCH ×3 (09:08→20:38)
[2019-02-07] MEDS: BRIMONIDINE TARTRATE 0.2% DROPS 5 ML BTL LEFT EYE SCH ×3 (09:09→20:39)
[2019-02-07] MEDS: DORZOLAMIDE HCL 2% DROPS 10 ML BTL LEFT EYE SCH ×3 (09:09→20:39)
[2019-02-07] MEDS: TIMOLOL 0.5% OPHTH DROPS 5 ML BTL LEFT EYE SCH ×2 (09:10→20:39)
[2019-02-07] MEDS: HEPARIN SODIUM,PORCINE 5,000 UNIT/ML 1 ML VIAL SQ SCH ×3 (10:37→23:29)
--- NOTE | 2019-02-07 10:52 | P.PN ---
Subjective Progress Note Date: 02/07/19 Refugio Saenz, is a 68-year-old male who presented to [facility] emergency room with pain in the right foot, he was evaluated in emergency room and had blackish discoloration of the right fifth toe with surrounding erythema and tenderness, patient was started on IV antibiotics Zosyn, vancomycin, and clindamycin, he was admitted to medical floor vascular surgery consultation was requested for possible amputation due to evidence of gangrene. Infectious disease consultation was requested. Patient has a known history of insulin-dependent diabetes mellitus, his glucose level was well controlled up until September of this year his A1c in June was 7.1 and in September was 7.3 however apparently patient stopped taking his insulin and his medications and his A1c was up to 9.8 in November, he has a known history of right foot ulcer he was admitted to the hospital with right foot cellulitis and ulcer in 2014 and he was followed at the wound care clinic in 2015 however he was doing well up until recently. Patient also has a known history of hypertension, hyperlipidemia, he denies any history of coronary artery disease or congestive heart failure, he had an echocardiogram done in 2014 at that time he had normal left ventricular function was normal ejection fraction, no significant valvular disease and no pulmonary hypertension. 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 On 01/17/2019 patient's alert and oriented 3. Patient had fourth and fifth toe amputation with Dr. Edward this morning. Patient having some low blood pressure will give 500 mL bolus. Patient denies chest pain or shortness of breath. Patient denies nausea vomiting or diarrhea. Patient is having some increased pain to foot area pain medications ordered 01/18/2019, patient seen eval examined while covering for Dr. Granger, waking up this morning slightly slow to respond but not confused, breathing comfortably denies any chest pain labs reviewed today patient has been evaluated by Dr. Bassett, white cell count is coming down to 19,000, lactic acid level is normalized, patient has been on broad-spectrum antibiotics with vascular surgery on board 01/19/2019, patient seen and evaluated examined in the ICU intubated on full ventilator support, patient had gradual loss of consciousness has been more lethargic arterial blood gases were checked shows hypercapnic and hypoxic respiratory failure was intubated in the ICU, patient has been placed on propof ol he was volume depleted depleted aggressive fluid resuscitation were performed, is still requiring levophed intermittently, patient was also noted to be hypoglycemic 7030 insulin and other oral hypoglycemic agents were discontinued, ultrasound of the abdomen has been performed which is reviewed no obvious hydronephrosis seen, patient has decreased urine output along with rising BUN/creatinine appeared to be acute tubular necrosis, patient also requiring intermittent bolus of D10 for hypoglycemia, wounds has been evaluated by vascular surgery noted recommendation, patient has very poor venous access, will put a central line in, critical care time 45 minutes during procedure, due to altered mental status CT of the head was performed which was negative On 01/20/2019 patient remains in the intensive care unit on mechanical ventilation. Levophed has been on hold blood pressures has sustained. Creatinine has increased to 4.17 and bun 56. Nephrology services are following. Per nursing staff patient does follow commands during sedation holiday ABGs have improved. Discussed case with vascular surgeon nurse practitioner possible BKA discussion. White blood cell decreasing to 16.0. Critical care services are following. Patient remains on Zosyn for IV antibiotics. Infectious disease following 01/21/2019 patient remains on mechanical ventilation on in the intensive care unit. Patient remains sedated, on propofol. However per nursing staff patient does follow commands during sedation holiday. Patient is on 50% FiO2, 5 PEEP, tidal volume 500. Levophed off since 01/20/20. Blood pressure remains in the 130's-150's systolic. Creatinine 4.35 from 4.17 and BUN 57 from 56, Calcium 7.0, phosphorus 5.9 Nephrology is following. Orogastric tube replaced this morning. Per nursing staff OG tube was coiled in patient's mouth with tube feeds running. Chest x-ray repeated, no significant change from previous. ABG improving, still metabolic acidosis. WBC of 14.1 down from 16. Afebrile. Infectious disease is following patient is maintained on Zosyn. Will send C. diff sample due to new onset diarrhea for 1 day. Hyperglycemia noted (glucose 200's). Will discuss tube feed formula with dietary. If no changes can be made will adjust sliding scale. On 01/22/2019 patient remains sedated on mechanical ventilation in the intensive care unit. Per nursing staff patient is to have a BKA today with Dr. Edward. Patient remains off pressors, blood pressure has been stable. Chest x-ray repeated this morning, per pulmonary. No significant change in ABGs. Creatinine continues to increase, 4.84 today BUN 60, patient is still making adequate urine output nephrology is following. Tube feeds on hold, for pending OR. WBC 14.2, temperature overnight 100F. Please is following patient is maintained on Zosyn. C. diff sample was negative. 01/23/2019 patient remains sedated and on mechanical ventilation in the ICU. He underwent right BKA yesterday, 01/22/[address] Edward. Estimated blood loss 150 mL. He had a temp of 100 last night. Urine output is about 50 mL per hour. Creatinine has gone down from 4.84-4.82. Nephrology is following closely. No plans for hemodialysis yet. Patient's blood sugars are starting to become more elevated. They're in the 180s to 200s. Tube feedings are being adjusted. White count 13.7 hemoglobin 10.3 On 01/24/2019 patient remains sedated on mechanical ventilation in the intensive care unit. Decreased urine output throughout night. Creatinine 5.15 and bun 68. Patient remains on insulin drip. WBC 14.1. Patient having low-grade temps. Patient remains closely followed by critical care consulting providers On 01/25/2019 patient was seen and examined in the intensive care unit, he is currently alert and maintained on BiPAP trial, he is making more urine output, and no hemodialysis is scheduled at this time, creatinine improved, down from 5.15-4.44 white blood count down to 11.3 patient is followed by nephrology, infectious disease, pulmonary and critical care and vascular surgery On 01/26/2019 patient was seen and examined in the ICU, he is intubated sedated maintained on mechanical ventilation, creatinine went up today and he was started on hemodialysis, Zosyn has today, at this time will resume Zosyn, we have asked infectious disease to see patient and reassess antibiotics, otherwise patient is stable there is no fever or chills, he continues to have a rectal tube and having large amount of diarrhea, C. diff was checked and was negative will repeat test today. On 01/27/2019 patient remains on mechanical ventilation in the intensive care unit. Creatinine trending down today 4.76 and bun 77. Patient remains on Lasix drip per nephrology services. White count 11.8. She remains on IV Zosyn. Sedation holiday performed per nursing staff and critical care recommendation. On 01/28/2019 patient remains in the intensive care unit on mechanical ventilation. Sedation currently turned off. Patient is awake and following commands possible extubation today per critical care. Patient also received hemodialysis this will be the patient's third round of hemodialysis. Creatinine is trending down 4.44. Patient remains on Lasix drip. On 01/29/2019 patient remains in ICU intubated sedated maintained on mechanical ventilation, he had to CPAP trials yesterday, he is still maintained on hemodialysis, creatinine is elevated at 4.8 and BUN 89. On 01/30/2019 patient remains on mechanical ventilation in the intensive care unit. Patient is off sedation at this time and following commands. CPAP trial in place. Possible extubation today. Patient currently getting hemodialysis. Permanent hemodialysis catheter placed yesterday. Creatinine is trending down. Patient taken off insulin drip. on 01/31/2019 patient remains in intensive care unit on mechanical ventilation. Discussed case with critical care doctor Dr. Dominguez Yesterday. Patient unable to wean. we'll continue to monitor patient over the weekend and consider possible trach next week. Patient also received hemodialysis yesterday. On 02/01/2019 patient was seen and examined in the ICU he is intubated and maegan ntained on mechanical ventilation sedation is being stopped now for CPAP trial on 02/02/2019 patient was seen and examined in the ICU he has been extubated since yesterday, he is tolerating well maintained on oxygen via nasal cannula, he seems somnolent however he is opening his eyes and answering questions by nodding his head and trying to speak, there is no fever or chills no headache or dizziness no chest pain no shortness of breath he has occasional cough no nausea or vomiting no abdominal pain. on 02/03/2019 patient is currently sitting up in chair on nasal cannula. Patient does wake up and follow commands. Per nursing staff antibiotics due to ID is following per nursing will get a hold of infectious disease to further evaluate need for antibiotics. at this time patient denies chest pain or shortness of breath. Patient denies nausea vomiting or diarrhea. Patient denies any urinary burning or frequency. patient to receive hemodialysis today remains on IV Lasix on 02/04/2019 patient is currently resting comfortably in bed. Patient is alert and oriented. Per nursing staff patient no longer needs antibiotics Dr. Bassett is following for infectious disease.patient received dialysis yesterday will receive hemodialysis again tomorrow maintained on IV Lasix. Elevated blood pressure. Hydralazine by mouth has been added. At this time patient denies chest pain or shortness of breath. Patient denies nausea vomiting or diarrhea. Patient denies any urinary burning or frequency. on 02/05/2019 patient is currently resting comfortably in chair. Per nursing staff patient had episode of increased lethargy last night requiring BiPAP and Narcan. per critical care and narcotics and benzos were DC'd at this time. Patient is now awake and alert 3. Patient able to follow commands and answer all questions. Patient denies any chest pain or shortness of breath. Patient denies nausea vomiting or diarrhea. Patient denies any urinary burning or frequency. 02/06/2019 patient is currently resting comfortably in bed.Patient did undergo hemodialysis yesterday. Lasix has been decreased per nephrology. Patient denies chest pain or shortness of breath. Patient denies vomiting or diarrhea. Patient denies any urinary burning or frequency. Working on discharge planning possible discharge to ECF next week. On 02/07/2019 patient has moved out of the intensive care unit to [facility] care. Patient currently getting hemodialysis. Discussed case with nephrology services planning to do dialysis today and hold off during the weekends assess patient renal function on Sunday. Also patient is planning to be discharged to ECF [facility] now. This time patient denies chest pain. Patient denies nausea vomiting or diarrhea. Patient having some mild discomfort back will add Tylenol. Patient denies any urinary burning or frequency edward catheter remains in place. Objective - Vital Signs Vital signs: Vital Signs Temp 97.6 F 02/07/19 08:12 Pulse 69 02/07/19 08:12 Resp 16 02/07/19 08:12 BP 134/63 02/07/19 08:12 Pulse Ox 100 02/07/19 08:12 Intake & Output 02/06/19 02/07/19 02/07/19 18:59 06:59 18:59 Intake Total 230 Output Total 225 250 Balance 5 -250 Weight 104.5 kg Intake: IV 180 Sodium Chloride 0.9% 1, 180 000 ml @ 20 mls/hr IV . Q24H [facility] Rx#:[id number] Oral 50 Output: Urine 225 250 Other: Voiding Method Indwelling Catheter Indwelling Catheter Indwelling Catheter # Bowel Movements 1 ABP, PAP, CO, CI - Last Documented Arterial Blood Pressure 149/42 - Exam HEENT head normocephalic and atraumatic Neck is supple no JVD no goiter no lymphadenopathy Chest exam reveals diminished lung sounds, a few scattered rhonchi no wheezing Cardiac exam reveals regular heart sounds S1 and S2 no gallops no murmurs Abdomen is obese, soft nontender no organomegaly with normal bowel sounds Extremity right BKA. Dressing is clean dry and intact Neuro no gross focal neurological deficit.patient is alert and oriented. Patient sleepy but wakes up and follows commands. unequal pupils left greater than right. Patient reports he had eye surgery previously unable to recall for what but does report this is chronic. No other neuro deficits noted - Labs CBC & Chem 7: 02/07/19 06:38 02/07/19 06:38 Labs: Abnormal Lab Results - Last 24 Hours (Table) 02/06/19 02/06/19 02/06/19 Range/Units 11:54 18:04 20:40 RBC (4.30-5.90) m/uL Hgb (13.0-17.5) gm/dL Hct (39.0-53.0) % Chloride (98-107) mmol/L Carbon Dioxide (22-30) mmol/L BUN (9-20) mg/dL Creatinine (0.66-1.25) mg/dL Glucose (74-99) mg/dL POC Glucose (mg/dL) 176 H 200 H 149 H (75-99) mg/dL Albumin (3.5-5.0) g/dL 02/07/19 02/07/19 02/07/19 Range/Units 06:16 06:38 06:38 RBC 3.06 L (4.30-5.90) m/uL Hgb 9.7 L (13.0-17.5) gm/dL Hct 29.2 L (39.0-53.0) % Chloride 112 H (98-107) mmol/L Carbon Dioxide 19 L (22-30) mmol/L BUN 38 H (9-20) mg/dL Creatinine 3.50 H (0.66-1.25) mg/dL Glucose 163 H (74-99) mg/dL POC Glucose (mg/dL) 159 H (75-99) mg/dL Albumin 3.1 L (3.5-5.0) g/dL Assessment and Plan Assessment: #1 gangrene involving the right fifth toe with surrounding cellulitis Status post amputation of fourth and fifth toe with Dr. Edward and status post right BKA. #2 sepsis present on admission as evidenced by fever, leukocytosis, and elevated lactic acid. wound cultures growing gram-negative bacilli. White blood cell improving down to 9.3. patient has completed course of antibiotics per infectious disease no need for antibiotics at this time #3 acute hypoxic and hypercapnic respiratory failure with altered mental status changes secondary to severe sepsis. Patient was transferred to the intensive care unit and placed on mechanical ventilation. patient has been successfully extubated to 2 L. #4. Hypotension secondary to septic shock requiring Levophed for pressure support. resolved #5. Acute kidney injury secondary to ATN secondary to hypotension as well as vancomycin toxicity. Nephrology services are following. Ultrasound completed showing no evidence of hydronephrosis. currently receiving hemodialysis. Permanent hemodialysis catheter placed on 01/29/2019. #6. history of essential hypertension. Cardiology services following. EF 50- 55%. Per cardiology services no evidence of acute coronary syndrome at this time. hydralazine has been added by mouth #7. insulin-dependent diabetes mellitus, with poor control due to noncompliance last hemoglobin A1c was 9.8 at this time will hold glipizide, Januvia and metformin, and cover was insulin to sliding scale will adjust medications as needed. Blood sugars have been in the 200s after episode of hypoglycemia. Patient currently on insulin drip for tight blood sugar control. Insulin drip has been DC'd. Patient started on sliding scale coverage #8. underlying history of diabetic complications of peripheral neuropathy and retinopathy. #9. poor compliance with medical management, patient had extensive counseling in the last year, his A1c was down to 7.1 in June however it was up to 9.8 again recently. #10 underlying history of hyperlipidemia maintained on atorvastatin, on hold. #11. Hypoglycemia. Home meds DC'd. Tube feedings have been initiated. Hypoglycemia has resolved #12. volume overload. Patient maintained on IV Lasix. Nephrology services are following #13. History of glaucoma with previous surgeries to left eye. Unequal pupils which patient reports is chronic. patient maintained on multiple eyedrops #14. increased lethargy likely secondary to narcotics and benzos. these were DC'd per critical care. Resolved DVT prophylaxis heparin. GI prophylaxis Protonix Critical care, vascular surgery, infectious disease, cardiology and nephrology services following PT OT consulted social work consulted will likely need ECF upon discharge Planning [facility] upon discharge I performed an examination of the patient and discussed their management with the Nurse Practitioner. I have reviewed the Nurse Practitioner's notes and agree with the documented findings and plan of care
[2019-02-07] MEDS: FLUoxetine HCL 20 MG CAP PO SCH (10:53)
[2019-02-07] MEDS: PANTOPRAZOLE 40 MG/10 ML VIAL IV SCH (10:53)
[2019-02-07] MEDS: SODIUM BICARBONATE TAB 650 MG TAB PO SCH ×2 (10:53→20:38)
[2019-02-07] MEDS: ACETAMINOPHEN TAB 325 MG TAB PO PRN ×2 (10:53→20:38)
[2019-02-07 11:58] LABS: Glucose,Whole Blood 160 mg/dL (75-99)
--- NOTE | 2019-02-07 12:40 | P.PN ---
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, poor compliance, dyslipidemia, dehydration 02/07/2019, patient seen eval examined during the rounds labs reviewed medications reviewed care plan discussed with the patient and staff at length some discomfort is present stump patient in medical management is being done with Tylenol we'll continue to avoid narcotics and benzodiazepine dyes 18, if pain is more intense Toradol can be tried, status post dialysis 2 L of fluid has been removed tolerated very well patient is slightly exhausted 02/06/2019, patient seen eval examined during the rounds labs reviewed medications reviewed patient has been awake and alert on 2 L oxygen urine output has been minimal patient has been taken off of Lasix now, get a hemodialysis tomorrow, patient can moved out of the ICU will continue to avoid benzos and narcotics in continue BiPAP support each night and when necessary during the day 02/04/2019, patient seen and evaluated examined during the rounds labs reviewed medications reviewed care plan discussed with the patient and staff at length patient is on 2 L oxygen breathing comfortably he had BiPAP treatment yesterday which she tolerated for 5-6 hours, he is well oriented 3 he is actively undergoing physical therapy for profound weakness, his BUN/creatinine improved to 36 and 2.98 02/03/2019, patient seen eval examined during the rounds labs reviewed medications reviewed care plan discussed with the patient and staff at length he is doing well on 2 L oxygen, severe degree of generalized weakness is present though, patient has using BiPAP machine each night and when necessary during the day, patient is undergoing hemodialysis plan is to remove 2-1/2 L, so far he has been tolerating dialysis very well, February 02 2019, patient seen eval examined during the rounds labs reviewed medications reviewed radiographic studies reviewed as well, patient has been placed on CPAP of 5 pressure support 18 has been doing very well with that arterial blood gas in weaning parameters are reviewed even though patient appears to be in weeks' side but feel that patient can be successfully extubated proceeded with extubation, patient has been placed on 4 L nasal cannula postextubation he has a weak cough I have instructed staff to get him out of the bed with deep breathing and cough, patient will require BiPAP H night and when necessary during the day setting have been adjusted, continue Lasix when necessary seems to be making urine patient is due for dialysis tomorrow as well, critical care time spent 35 minutes 02/01/2019, patient seen elizabeth examined during the rounds Asians propofol is slowly being titrated down, patient is undergoing hemodialysis so far 1 L of fluid has been removed one hour dialysis still left, one and half liter to be removed as well patient tolerated the procedure very well, labs reviewed medications reviewed x-ray reviewed as well once patient is done with the dialysis will put patient on CPAP and pressure support if tolerated very well then consider weaning and extubation 01/31/2019, protocol has been discontinued patient is still somnolent but does respond to physical stimuli patient will be placed on CPAP and pressure support once a relatively more awake will continue the weaning trials as tolerated patient is not due for dialysis today the x-ray reviewed labs reviewed as, chest x-ray continued to show evidence of fluid overload right-sided dialysis catheter is stable, hemoglobin stable at 7.9, the biopsy in normal limit, arterial blood gases shows resolution of severe metabolic acidosis, BUN/creatinine improved to 54 and 3.42, sugar is slightly elevated patient has been getting insulin sliding scale and as per protocol 01/30/2019, patient seen elizabeth examined during the rounds labs reviewed medications reviewed care plan discussed with the staff and primary service at length patient has a CPAP pressure support trial today unable to tolerate for longer period time just lasted for 15 minutes started having desaturation and was extremely short of breath, switch back to assist control mode, patient however has a successful dialysis about 2 L of fluid has been removed patient will get another dialysis trial tomorrow, labs reviewed radiographic studies reviewed, x-ray still showing fluid overload changes no significant change has been notedAmmann patient also underwent dialysis catheter placement, we'll continue CPAP pressure support trial as the fluid has been removed with the dialysis, if unsuccessful then consideration of trach and PEG will be entertained early next week, his sugars are better controlled his been switched from insulin drip to sliding scale insulin with twice a day dose 01/28/2019 Pt seen and examined care plan reviewed during AM rounds had trouble d dialysis due to catheter clogging, renal fx slightly better, cxr not much changed, ABG post cpap/ps suggestive of mild resp acidosis and predominantly Metabolic acidosis, feel that pt would require at least 2-3 more cycles of dialysis before successfully take him of of Vent, would recommend daily dialysis 01/27/2019, patient seen elizabeth examined during the rounds patient is due for dialysis today, remains on full vent setting but however undergoing CPAP pressure support trial with 5 and 10 tolerating very well, per support will be decreased to 5, patient is due for another dialysis later on today, tomorrow will do the CPAP and pressure support and check a blood gas afterwards if does well then possibly extubate, chest x-ray continue show bilateral basilar atelectasis but overall they remained stable labs reviewed medications reviewed care plan discussed with the respiratory therapist and medical staff credentialing coordinator at length critical care time spent 35 minutes 01/26/2019, patient seen elizabeth examined during the rounds labs reviewed medications reviewed, patient has been on Lasix drip 10 mg an hour also on propofol drip 10 mcg, patient had a hemodialysis done here earlier today with intent to remove the fluid, patient will get another hemodialysis tomorrow as well, has placed patient on CPAP of 5 pressure support of 10 is spontaneously breathing the rate is about 16-18 and tidal volume 350-400 range, extensive amount of secretions are present still, patient is not ready not ready for extubation but however they're indeed ready for weaning would recommend continued to do hemodialysis on a daily basis for at least 3 or 4 days so that volume overload can be dealt with, right cell count is 12,000 and hemoglobin and hematocrit remained stable arterial blood gas reviewed still have significant metabolic acidosis, renal function continued decline progressively BUN and creatinine up to 84 and 5.2, remains on Zosyn, chest x-ray as above noted to have worsening changes due to fluid overload, culture not growing anything, insulin drip is on sugars better controlled now 01/24/2019, patient seen elizabeth reexamined during the rounds critical care time 35 minutes, patient has a weaning attempt with CPAP and pressure support but was not completed as patient is due for hemodialysis catheter placement in right femoral vein the renal service thinking about hemodialysis tomorrow breathing remains stable patient remains on assist control rate of 18 FiO2 of 50% 5 of PEEP, and renal function continued to deteriorate gradually being output slowly declining 01/23/2019, patient seen elizabeth examined during the rounds labs reviewed medications reviewed care plan discussed with the staff at length and had a short weaning attempt and a sedation holiday with which he tolerated for short period of time then becomes tachypneic put back on respirator fit. We'll patient has been diuresing fairly well has been negative for the first time, urine output of 30-40 mL an hour. BUN/creatinine remains stable, patient is postop day #1 of the BKA, chest x-ray from today reviewed findings are most suggestive of fluid overload less likely to be pneumonia, the ET tube and central line and NG tube was stable, white cell count is 13,000 arterial blood gases remained stable, BUN/creatinine gradually going up is 60 and 4.8 to, sugar is running on the higher side last check sugar was over 260 patient is being started on insulin drip 01/21/2019, patient seen and evaluated examined during the rounds labs reviewed medications reviewed, patient the remains on sedation with propofol mildly sedated he does wake up follow simple commands and munira -1-2, he remains on IV fluids gently being rehydrated 50 mL an hour to feed is being given this morning patient noted to have a tube coiling in the mouth as He is to have pulled out late morning hours, the need to be has been placed position has been confirmed chest x-ray continued to show for evidence of fluid overload and this should edema along with possible infiltrate, he remains on assist control rate of 18 and tidal volume of 505 of PEEP and oxygen is 50% he is +1.2 L since morning, care plan discussed with nephrology as well as the vascular surgery, as his BUN and creatinine continued to go up creatinine is 5.1 in spite of good adequate urine output, patient continue on broad-spectrum antibiotic when setting remains stable respiratory secretions are still thick tenacious and appears to be improv ing slowly, blood cultures and sputum culture has been negative, need to make eyes and nose on the negative side as well as would like to see been function improving before consideration of weaning that anticipate will take another 24- 48 hours 01/20/2019, patient seen eval examined during the rounds and labs reviewed medications reviewed critical care time spent 35 minutes, patient remains on ass ist control rate 18 and tidal volume of 500 along with PEEP of 5, patient is sedated with propofol drip but doesn't respond to simple stimuli, patient has been making good amount of urine levo fed is not require S patient is hemodynamically stable urine output has improved to 50-60 mL an hour post Lasix which is advised by nephrology service urine output has improved, patient has been tolerating tube feed well given that volume overload situation due to hypotension and was given fluid for resuscitation patient gently being diuresed, she he remains on broad-spectrum antibiotic sliding scale insulin labs reviewed medications reviewed care plan discussed with the staff and 2 brothers at bedside at length, chest x-ray from today reviewed bilateral atelectasis and fluid overload is present overall suggestive of more of his CHF and pneumonia, white cell count is stable, arterial blood gases improved, BUN/creatinine continue to go up 56 and 4.17, sugars have been stabilized 01/19/2019, patient seen and evaluated examined in the ICU intubated on full ventilator support, patient had gradual loss of consciousness has been more lethargic arterial blood gases were checked shows hypercapnic and hypoxic respiratory failure was intubated in the ICU, patient has been placed on propofol he was volume depleted depleted aggressive fluid resuscitation were performed, is still require levo fed intermittently, patient was also noted to be hypoglycemic 7030 insulin and other oral hypoglycemic agents were discontinued, ultrasound of the abdomen has been performed which is reviewed no obvious hydronephrosis seen, patient has decreased urine output along with rising BUN/creatinine appeared to be acute tubular necrosis, patient also requiring intermittent bolus of D10 for hypoglycemia, wounds has been evaluated by vascular surgery noted recommendation, patient has very poor venous access, will put a central line in, critical care time 45 minutes during procedure, due to altered mental status CT of the head was performed which was negative 01/18/2019, patient seen eval examined while covering for Dr. Granger, waking up this morning slightly slow to respond but not confused, breathing comfortably denies any chest pain labs reviewed today patient has been evaluated by Dr. Bassett, white cell count is coming down to 19,000, lactic acid level is normalized, patient has been on broad-spectrum antibiotics with vascular surgery on board Objective - Vital Signs Vital signs: Vital Signs Temp 97.6 F 02/07/19 11:28 Pulse 79 02/07/19 11:28 Resp 18 02/07/19 11:28 BP 136/68 02/07/19 11:28 Pulse Ox 97 02/07/19 11:28 Intake & Output 02/06/19 02/07/19 02/07/19 18:59 06:59 18:59 Intake Total 230 Output Total 897 987 8517 Balance 250 Weight 104.5 kg Intake: IV 180 Sodium Chloride 0.9% 1, 180 000 ml @ 20 mls/hr IV . Q24H [facility] Rx#:[id number] Oral 50 Output: Urine 225 250 Hemodialysis 1999 Other: Voiding Method Indwelling Catheter Indwelling Catheter Indwelling Catheter # Bowel Movements 1 ABP, PAP, CO, CI - Last Documented Arterial Blood Pressure 149/42 - Exam Intubated on full vent support on propofol getting IV fluids normal saline , assessed pre-and post extubation HEENT head normocephalic and atraumatic Neck is supple no JVD no goiter no lymphadenopathy Chest exam reveals a few scattered rhonchi no wheezing Cardiac exam reveals regular heart sounds S1 and S2 no gallops no murmurs Abdomen is soft nontender no organomegaly with normal bowel sounds Extremity exam status post right BKA Neuro no gross focal neurological deficit, patient has anisocoria - Labs CBC & Chem 7: 02/07/19 06:38 02/07/19 06:38 Labs: Abnormal Lab Results - Last 24 Hours (Table) 02/06/19 02/06/19 02/07/19 Range/Units 18:04 20:40 06:16 RBC (4.30-5.90) m/uL Hgb (13.0-17.5) gm/dL Hct (39.0-53.0) % Chloride (98-107) mmol/L Carbon Dioxide (22-30) mmol/L BUN (9-20) mg/dL Creatinine (0.66-1.25) mg/dL Glucose (74-99) mg/dL POC Glucose (mg/dL) 200 H 149 H 159 H (75-99) mg/dL Albumin (3.5-5.0) g/dL 02/07/19 02/07/19 02/07/19 Range/Units 06:38 06:38 11:57 RBC 3.06 L (4.30-5.90) m/uL Hgb 9.7 L (13.0-17.5) gm/dL Hct 29.2 L (39.0-53.0) % Chloride 112 H (98-107) mmol/L Carbon Dioxide 19 L (22-30) mmol/L BUN 38 H (9-20) mg/dL Creatinine 3.50 H (0.66-1.25) mg/dL Glucose 163 H (74-99) mg/dL POC Glucose (mg/dL) 160 H (75-99) mg/dL Albumin 3.1 L (3.5-5.0) g/dL Assessment and Plan Assessment: Altered mental status, continued to improve gradually we'll continue to avoid benzodiazepine and narcotics Hypoxic and hypercapnic respiratory failure Acute on chronic renal failure Bilateral atelectasis and possible aspiration pneumonia Fluid overload and acute interstitial edema Severe hyperglycemia 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 Sepsis and septic shock Insulin-dependent diabetes mellitus poorly controlled, being started on insulin drip Hypertension hypertensive cardiovascular disease Dyslipidemia Plan: doing well on 2 L nasal cannula Will use BiPAP each night and when necessary during the day continue sliding scale insulin Monitor renal functions closely once patient is negative and renal function improving we will initiate the weaning processs chest PT and physical therapy Up on chair increase activity as tolerated Continue gentle diuresis continue dialysis as planned Broad-spectrum antibiotics If pain more intense Toradol can be tried in addition to Tylenol but continued to avoid benzodiazepine and narcotics Time with Patient: Greater than 30
--- NOTE | 2019-02-07 13:04 | P.PN ---
Subjective Patient is seen in follow-up for acute kidney injury, currently hemodialysis dependent. Denies chest pain or shortness of breath. Oral intake is fair. Urine output 250 cc overnight. [facility], [facility] HD 02/05/19 - cr up to 3.5 today. PO intake fair. Vital signs are stable. General: The patient appeared well nourished and normally developed. HEENT: Head exam is unremarkable. Neck is without jugular venous distension. LUNGS: Lungs are clear to auscultation and percussion. Breath sounds decreased. HEART: Rate and Rhythm are regular. First and second heart sounds normal. No murmurs, rubs or gallops. ABDOMEN: Abdominal exam reveals normal bowel sounds. Non-tender and non- distended. No evidence of peritonitis. EXTREMITITES: Trace edema. Right BKA noted. Objective - Vital Signs Vital signs: Vital Signs Temp 97.6 F 02/07/19 11:28 Pulse 79 02/07/19 11:28 Resp 18 02/07/19 11:28 BP 136/68 02/07/19 11:28 Pulse Ox 97 02/07/19 11:28 Intake & Output 02/06/19 02/07/19 02/07/19 18:59 06:59 18:59 Intake Total 230 Output Total 034 429 5589 Balance 5 -250 -1999 Weight 104.5 kg Intake: IV 180 Sodium Chloride 0.9% 1, 180 000 ml @ 20 mls/hr IV . Q24H [facility] Rx#:[id number] Oral 50 Output: Urine 225 250 Hemodialysis 2000 Other: Voiding Method Indwelling Catheter Indwelling Catheter Indwelling Catheter # Bowel Movements 1 ABP, PAP, CO, CI - Last Documented Arterial Blood Pressure 149/42 - Labs CBC & Chem 7: 02/07/19 06:38 02/07/19 06:38 Labs: Abnormal Lab Results - Last 24 Hours (Table) 02/06/19 02/06/19 02/07/19 Range/Units 18:04 20:40 06:16 RBC (4.30-5.90) m/uL Hgb (13.0-17.5) gm/dL Hct (39.0-53.0) % Chloride (98-107) mmol/L Carbon Dioxide (22-30) mmol/L BUN (9-20) mg/dL Creatinine (0.66-1.25) mg/dL Glucose (74-99) mg/dL POC Glucose (mg/dL) 200 H 149 H 159 H (75-99) mg/dL Albumin (3.5-5.0) g/dL 02/07/19 02/07/19 02/07/19 Range/Units 06:38 06:38 11:57 RBC 3.06 L (4.30-5.90) m/uL Hgb 9.7 L (13.0-17.5) gm/dL Hct 29.2 L (39.0-53.0) % Chloride 112 H (98-107) mmol/L Carbon Dioxide 19 L (22-30) mmol/L BUN 38 H (9-20) mg/dL Creatinine 3.50 H (0.66-1.25) mg/dL Glucose 163 H (74-99) mg/dL POC Glucose (mg/dL) 160 H (75-99) mg/dL Albumin 3.1 L (3.5-5.0) g/dL Assessment and Plan Plan: Assessment: 1. Acute kidney injury secondary to ATN secondary to sepsis. Currently hemodialysis dependent via right chest permacath. Last HD 02/05/19 - Cr rising without HD. 2. Acute hypoxic respiratory failure. Now extubated. 3. Right lower extremity ischemia with wet gangrene status post right BKA. 4. Volume overload. Improving with diuresis and ultrafiltration. 5. Metabolic acidosis secondary to acute kidney injury. Expect improvement postdialysis. Maintained on oral sodium bicarbonate. 6. Hyperphosphatemia secondary to acute kidney injury. Better. Maintained on PhosLo. 7. Anemia. Iron def noted. Ferritin high. Maintained on Aranesp. Plan: HD today - will maintain on MWF schedule while in the hospital. Lasix discontinued due to no response in his urine output. Continue to monitor renal function and urine output. Outpatient dialysis has been set up.
[2019-02-07 17:08] LABS: Glucose,Whole Blood 210 mg/dL (75-99)
[2019-02-07 20:32] LABS: Glucose,Whole Blood 152 mg/dL (75-99)
[2019-02-07] MEDS: LATANOPROST 0.005% OPHTH DROPS 2.5 ML BTL LEFT EYE SCH (20:39)
[2019-02-07] MEDS: SODIUM CHLORIDE 0.9% 500 ML IV SCH (22:48)
[2019-02-08] MEDS ORDERED: EPINEPHrine 10 ML SYRINGE (0.1 MG/ML) ONE (06:35)
[2019-02-08] MEDS ORDERED: SODIUM CHLORIDE 0.9% 1,000 ML BAG ONE (06:35)
[2019-02-08] MEDS ORDERED: SODIUM BICARB 8.4% 50 ML SYR (1 MEQ/ML) ONE (06:35)
[2019-02-08 06:36] LABS: Glucose,Whole Blood 203 mg/dL (75-99)
[2019-02-08] MEDS: INSULIN ASPART (NovoLOG) 100 UNIT/ML VIAL SQ SCH ×4 (06:38→20:50)
[2019-02-08] MEDS: CALCIUM ACETATE 667 MG TAB PO SCH ×3 (06:38→16:58)
--- NOTE | 2019-02-08 08:59 | P.PN ---
Subjective Progress Note Date: 02/08/19 Principal diagnosis: Refugio is a 68-year-old male seen in consultation because of acute kidney injury, currently hemodialysis dependent last dialysis yesterday. His ATN is secondary to sepsis. 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 His dialysis was started on 01/24/2019. His urine output is minimal therefore there is no evidence of any recovery of renal function He is still looks very tired and weak although he says is feeling well. Denies any cough fevers chills nausea vomiting diarrhea abdominal pain. history of present illness: Patient is a 68-year-old male seen in consultation for acute kidney injury. Patient presented to the hospital on 01/15/2019 with pain in his toes, particularly fourth and fifth toe, on the right feet. Patient was evaluated by vascular surgery and was noted to have wet gangrene. 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 Last night the patient was noted to be more lethargic. He was noted to be and mixed acute hypercapnic and hypoxic respiratory failure. Patient was intubated and transferred to the intensive care unit. Patient was on Levophed overnight but is now discontinued. He is currently receiving a 500 mL bolus of normal saline and is also maintained on normal saline at 100 mL an hour. Patient's urine output has been about 15-20 mL an hour. Patient's blood pressure did drop down into the systolic 60s last night. Additionally he was on LELAND inhibitor which has not been discontinued. In terms of antibiotics he's been on IV vancomycin and Zosyn. Patient's vancomycin level as of 01/18/2019 was 39.6. Vancomycin has been discontinued. Objective - Vital Signs Vital signs: Vital Signs Temp 98.4 F 02/08/19 03:10 Pulse 73 02/08/19 03:10 Resp 18 02/08/19 03:10 BP 137/63 02/08/19 03:10 Pulse Ox 99 02/08/19 03:10 Intake & Output 02/07/19 02/08/19 02/08/19 18:59 06:59 18:59 Intake Total 240 Output Total 2200 80 Balance -1960 - Weight 99.5 kg Intake: Oral 240 Output: Urine 80 Stool 200 Hemodialysis 2000 Other: Voiding Method Indwelling Catheter Indwelling Catheter # Voids 20 # Bowel Movements 1 ABP, PAP, CO, CI - Last Documented Arterial Blood Pressure 149/42 On examination is awake alert oriented but looks ill and weak. HEENT exam no JVP neck is supple no facial asymmetry Lungs are clear to auscultation less than optimal inspiratory effort as his protein leakage Heart sounds are unremarkable for any murmur rub gallop. Abdomen is soft nontender Extremity examination reveals no edema. He has a right BKA Neurologically awake alert oriented but found to be not since it up even with he lp - Labs CBC & Chem 7: 02/07/19 06:38 02/07/19 06:38 Labs: Abnormal Lab Results - Last 24 Hours (Table) 02/07/19 02/07/19 02/07/19 Range/Units 06:38 11:57 17:07 RBC 3.06 L (4.30-5.90) m/uL Hgb 9.7 L (13.0-17.5) gm/dL Hct 29.2 L (39.0-53.0) % POC Glucose (mg/dL) 160 H 210 H (75-99) mg/dL 02/07/19 02/08/19 Range/Units 20:30 06:34 RBC (4.30-5.90) m/uL Hgb (13.0-17.5) gm/dL Hct (39.0-53.0) % POC Glucose (mg/dL) 152 H 203 H (75-99) mg/dL Assessment and Plan Assessment: Assessment: 1. Acute kidney injury secondary to ATN secondary to sepsis. Currently hemodialysis dependent via right chest permacath. Last HD yesterday 02/07/2019, no evidence of renal recovery 2. Acute hypoxic respiratory failure. Now extubated. 3. Right lower extremity ischemia with wet gangrene status post right BKA. 4. Volume overload. Improving with diuresis and ultrafiltration. 5. Metabolic acidosis secondary to acute kidney injury. Expect improvement postdialysis. Maintained on oral sodium bicarbonate. 6. Hyperphosphatemia secondary to acute kidney injury. Better. Maintained on PhosLo. 7. Anemia. Iron def noted. Ferritin high. Maintained on Aranesp. Plan: Continue hemodialysis on a Sunday scheduled dialysis Sunday He will need aggressive physiotherapy Outpatient dialysis has been set up. Monitor hemoglobin calcium phosphorus as well as bicarb
[2019-02-08] MEDS: HEPARIN SODIUM,PORCINE 5,000 UNIT/ML 1 ML VIAL SQ SCH ×3 (09:48→23:21)
[2019-02-08] MEDS: PANTOPRAZOLE 40 MG/10 ML VIAL IV SCH (09:48)
[2019-02-08] MEDS: GABAPENTIN 100 MG CAP PO SCH ×3 (09:48→20:51)
[2019-02-08] MEDS: hydrALAZINE HCL 25 MG TAB PO SCH ×3 (09:48→20:50)
[2019-02-08] MEDS: DORZOLAMIDE HCL 2% DROPS 10 ML BTL LEFT EYE SCH ×3 (09:48→20:51)
[2019-02-08] MEDS: SODIUM BICARBONATE TAB 650 MG TAB PO SCH ×2 (09:48→20:50)
[2019-02-08] MEDS: FLUoxetine HCL 20 MG CAP PO SCH (09:48)
[2019-02-08] MEDS: TIMOLOL 0.5% OPHTH DROPS 5 ML BTL LEFT EYE SCH ×2 (09:49→20:51)
[2019-02-08] MEDS: BRIMONIDINE TARTRATE 0.2% DROPS 5 ML BTL LEFT EYE SCH ×3 (09:49→20:51)
[2019-02-08 11:39] LABS: Glucose,Whole Blood 188 mg/dL (75-99)
--- NOTE | 2019-02-08 14:27 | P.PN ---
Subjective Progress Note Date: 02/08/19 Refugio Saenz, is a 68-year-old male who presented to [facility] emergency room with pain in the right foot, he was evaluated in emergency room and had blackish discoloration of the right fifth toe with surrounding erythema and tenderness, patient was started on IV antibiotics Zosyn, vancomycin, and clindamycin, he was admitted to medical floor vascular surgery consultation was requested for possible amputation due to evidence of gangrene. Infectious disease consultation was requested. Patient has a known history of insulin-dependent diabetes mellitus, his glucose level was well controlled up until September of this year his A1c in June was 7.1 and in September was 7.3 however apparently patient stopped taking his insulin and his medications and his A1c was up to 9.8 in November, he has a known history of right foot ulcer he was admitted to the hospital with right foot cellulitis and ulcer in 2014 and he was followed at the wound care clinic in 2015 however he was doing well up until recently. Patient also has a known history of hypertension, hyperlipidemia, he denies any history of coronary artery disease or congestive heart failure, he had an echocardiogram done in 2014 at that time he had normal left ventricular function was normal ejection fraction, no significant valvular disease and no pulmonary hypertension. 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 On 01/17/2019 patient's alert and oriented 3. Patient had fourth and fifth toe amputation with Dr. Edward this morning. Patient having some low blood pressure will give 500 mL bolus. Patient denies chest pain or shortness of breath. Patient denies nausea vomiting or diarrhea. Patient is having some increased pain to foot area pain medications ordered 01/18/2019, patient seen eval examined while covering for Dr. Granger, waking up this morning slightly slow to respond but not confused, breathing comfortably denies any chest pain labs reviewed today patient has been evaluated by Dr. Bassett, white cell count is coming down to 19,000, lactic acid level is normalized, patient has been on broad-spectrum antibiotics with vascular surgery on board 01/19/2019, patient seen and evaluated examined in the ICU intubated on full ventilator support, patient had gradual loss of consciousness has been more lethargic arterial blood gases were checked shows hypercapnic and hypoxic respiratory failure was intubated in the ICU, patient has been placed on propo fol he was volume depleted depleted aggressive fluid resuscitation were performed, is still requiring levophed intermittently, patient was also noted to be hypoglycemic 7030 insulin and other oral hypoglycemic agents were discontinued, ultrasound of the abdomen has been performed which is reviewed no obvious hydronephrosis seen, patient has decreased urine output along with rising BUN/creatinine appeared to be acute tubular necrosis, patient also requiring intermittent bolus of D10 for hypoglycemia, wounds has been evaluated by vascular surgery noted recommendation, patient has very poor venous access, will put a central line in, critical care time 45 minutes during procedure, due to altered mental status CT of the head was performed which was negative On 01/20/2019 patient remains in the intensive care unit on mechanical ventilation. Levophed has been on hold blood pressures has sustained. Creatinine has increased to 4.17 and bun 56. Nephrology services are following. Per nursing staff patient does follow commands during sedation holiday ABGs have improved. Discussed case with vascular surgeon nurse practitioner possible BKA discussion. White blood cell decreasing to 16.0. Critical care services are following. Patient remains on Zosyn for IV antibiotics. Infectious disease following 01/21/2019 patient remains on mechanical ventilation on in the intensive care unit. Patient remains sedated, on propofol. However per nursing staff patient does follow commands during sedation holiday. Patient is on 50% FiO2, 5 PEEP, tidal volume 500. Levophed off since 01/20/20. Blood pressure remains in the 130's-150's systolic. Creatinine 4.35 from 4.17 and BUN 57 from 56, Calcium 7.0, phosphorus 5.9 Nephrology is following. Orogastric tube replaced this morning. Per nursing staff OG tube was coiled in patient's mouth with tube feeds running. Chest x-ray repeated, no significant change from previous. ABG improving, still metabolic acidosis. WBC of 14.1 down from 16. Afebrile. Infectious disease is following patient is maintained on Zosyn. Will send C. diff sample due to new onset diarrhea for 1 day. Hyperglycemia noted (glucose 200's). Will discuss tube feed formula with dietary. If no changes can be made will adjust sliding scale. On 01/22/2019 patient remains sedated on mechanical ventilation in the intensive care unit. Per nursing staff patient is to have a BKA today with Dr. Edward. Patient remains off pressors, blood pressure has been stable. Chest x-ray repeated this morning, per pulmonary. No significant change in ABGs. Creatinine continues to increase, 4.84 today BUN 60, patient is still making adequate urine output nephrology is following. Tube feeds on hold, for pending OR. WBC 14.2, temperature overnight 100F. Please is following patient is maintained on Zosyn. C. diff sample was negative. 01/23/2019 patient remains sedated and on mechanical ventilation in the ICU. He underwent right BKA yesterday, 01/22/[address] Edward. Estimated blood loss 150 mL. He had a temp of 100 last night. Urine output is about 50 mL per hour. Creatinine has gone down from 4.84-4.82. Nephrology is following closely. No plans for hemodialysis yet. Patient's blood sugars are starting to become more elevated. They're in the 180s to 200s. Tube feedings are being adjusted. White count 13.7 hemoglobin 10.3 On 01/24/2019 patient remains sedated on mechanical ventilation in the intensive care unit. Decreased urine output throughout night. Creatinine 5.15 and bun 68. Patient remains on insulin drip. WBC 14.1. Patient having low-grade temps. Patient remains closely followed by critical care consulting providers On 01/25/2019 patient was seen and examined in the intensive care unit, he is currently alert and maintained on BiPAP trial, he is making more urine output, and no hemodialysis is scheduled at this time, creatinine improved, down from 5.15-4.44 white blood count down to 11.3 patient is followed by nephrology, infectious disease, pulmonary and critical care and vascular surgery On 01/26/2019 patient was seen and examined in the ICU, he is intubated sedated maintained on mechanical ventilation, creatinine went up today and he was started on hemodialysis, Zosyn has today, at this time will resume Zosyn, we have asked infectious disease to see patient and reassess antibiotics, otherwise patient is stable there is no fever or chills, he continues to have a rectal tube and having large amount of diarrhea, C. diff was checked and was negative will repeat test today. On 01/27/2019 patient remains on mechanical ventilation in the intensive care unit. Creatinine trending down today 4.76 and bun 77. Patient remains on Lasix drip per nephrology services. White count 11.8. She remains on IV Zosyn. Sedation holiday performed per nursing staff and critical care recommendation. On 01/28/2019 patient remains in the intensive care unit on mechanical ventilation. Sedation currently turned off. Patient is awake and following commands possible extubation today per critical care. Patient also received hemodialysis this will be the patient's third round of hemodialysis. Creatinine is trending down 4.44. Patient remains on Lasix drip. On 01/29/2019 patient remains in ICU intubated sedated maintained on mechanical ventilation, he had to CPAP trials yesterday, he is still maintained on hemodialysis, creatinine is elevated at 4.8 and BUN 89. On 01/30/2019 patient remains on mechanical ventilation in the intensive care unit. Patient is off sedation at this time and following commands. CPAP trial in place. Possible extubation today. Patient currently getting hemodialysis. Permanent hemodialysis catheter placed yesterday. Creatinine is trending down. Patient taken off insulin drip. on 01/31/2019 patient remains in intensive care unit on mechanical ventilation. Discussed case with critical care doctor Dr. Dominguez Yesterday. Patient unable to wean. we'll continue to monitor patient over the weekend and consider possible trach next week. Patient also received hemodialysis yesterday. On 02/01/2019 patient was seen and examined in the ICU he is intubated and ma intained on mechanical ventilation sedation is being stopped now for CPAP trial on 02/02/2019 patient was seen and examined in the ICU he has been extubated since yesterday, he is tolerating well maintained on oxygen via nasal cannula, he seems somnolent however he is opening his eyes and answering questions by nodding his head and trying to speak, there is no fever or chills no headache or dizziness no chest pain no shortness of breath he has occasional cough no nausea or vomiting no abdominal pain. on 02/03/2019 patient is currently sitting up in chair on nasal cannula. Patient does wake up and follow commands. Per nursing staff antibiotics due to ID is following per nursing will get a hold of infectious disease to further evaluate need for antibiotics. at this time patient denies chest pain or shortness of breath. Patient denies nausea vomiting or diarrhea. Patient denie s any urinary burning or frequency. patient to receive hemodialysis today remains on IV Lasix on 02/04/2019 patient is currently resting comfortably in bed. Patient is alert and oriented. Per nursing staff patient no longer needs antibiotics Dr. Bassett is following for infectious disease.patient received dialysis yesterday will receive hemodialysis again tomorrow maintained on IV Lasix. Elevated blood pressure. Hydralazine by mouth has been added. At this time patient denies chest pain or shortness of breath. Patient denies nausea vomiting or diarrhea. Patient denies any urinary burning or frequency. on 02/05/2019 patient is currently resting comfortably in chair. Per nursing staff patient had episode of increased lethargy last night requiring BiPAP and Narcan. per critical care and narcotics and benzos were DC'd at this time. Patient is now awake and alert 3. Patient able to follow commands and answer all questions. Patient denies any chest pain or shortness of breath. Patient denies nausea vomiting or diarrhea. Patient denies any urinary burning or frequency. 02/06/2019 patient is currently resting comfortably in bed.Patient did undergo hemodialysis yesterday. Lasix has been decreased per nephrology. Patient denies chest pain or shortness of breath. Patient denies vomiting or diarrhea. Patient denies any urinary burning or frequency. Working on discharge planning possible discharge to ECF next week. On 02/07/2019 patient has moved out of the intensive care unit to [facility]. Patient currently getting hemodialysis. Discussed case with nephrology services planning to do dialysis today and hold off during the weekends assess patient renal function on Sunday. Also patient is planning to be discharged to [facility] now. This time patient denies chest pain. Patient denies nausea vomiting or diarrhea. Patient having some mild discomfort back will add Tylenol. Patient denies any urinary burning or frequency edward catheter remains in place. On 02/08/2019 patient was seen and examined on the telemetry floor he is alert responsive in no apparent distress he was more confused today, there is no fever or chills no headache or dizziness no chest pain no shortness of breath no cough no nausea or vomiting no abdominal pain no diarrhea no burning with urination no frequency or urgency and no hematuria. Objective - Vital Signs Vital signs: Vital Signs Temp 98.0 F 02/08/19 08:00 Pulse 84 02/08/19 12:00 Resp 20 02/08/19 12:00 BP 168/74 02/08/19 12:00 Pulse Ox 97 02/08/19 12:00 Intake & Output 02/07/19 02/08/19 02/08/19 18:59 06:59 18:59 Intake Total 240 280 Output Total 2200 80 Balance -1960 - 280 Weight 99.5 kg Intake: Oral 240 280 Output: Urine 80 Stool 200 Hemodialysis 2000 Other: Voiding Method Indwelling Catheter Indwelling Catheter Indwelling Catheter # Voids 20 # Bowel Movements 1 ABP, PAP, CO, CI - Last Documented Arterial Blood Pressure 149/42 - Exam In general patient is alert responsive slightly confused in no apparent distress HEENT head normocephalic and atraumatic Neck is supple no JVD no goiter no lymphadenopathy Chest exam reveals diminished lung sounds, a few scattered rhonchi no wheezing Cardiac exam reveals regular heart sounds S1 and S2 no gallops no murmurs Abdomen is obese, soft nontender no organomegaly with normal bowel sounds Extremity right BKA. Dressing is clean dry and intact Neuro no gross focal neurological deficit.patient is alert and oriented. Patient sleepy but wakes up and follows commands. unequal pupils left greater than right. Patient reports he had eye surgery previously unable to recall for what but does report this is chronic. No other neuro deficits noted - Labs CBC & Chem 7: 02/07/19 06:38 02/07/19 06:38 Labs: Abnormal Lab Results - Last 24 Hours (Table) 02/07/19 02/07/19 02/08/19 Range/Units 17:07 20:30 06:34 POC Glucose (mg/dL) 210 H 152 H 203 H (75-99) mg/dL 02/08/19 Range/Units 11:34 POC Glucose (mg/dL) 188 H (75-99) mg/dL Assessment and Plan Plan: #1 gangrene involving the right fifth toe with surrounding cellulitis Status post amputation of fourth and fifth toe with Dr. Edward and status post right BKA. #2 sepsis present on admission as evidenced by fever, leukocytosis, and elevated lactic acid. wound cultures growing gram-negative bacilli. White blood cell improving down to 9.3. patient has completed course of antibiotics per infectious disease no need for antibiotics at this time #3 acute hypoxic and hypercapnic respiratory failure with altered mental status changes secondary to severe sepsis. Patient was transferred to the intensive care unit and placed on mechanical ventilation. patient has been successfully extubated to 2 L. #4. Hypotension secondary to septic shock requiring Levophed for pressure support. resolved #5. Acute kidney injury secondary to ATN secondary to hypotension as well as vancomycin toxicity. Nephrology services are following. Ultrasound completed showing no evidence of hydronephrosis. currently receiving hemodialysis. Permanent hemodialysis catheter placed on 01/29/2019. #6. history of essential hypertension. Cardiology services following. EF 50- 55%. Per cardiology services no evidence of acute coronary syndrome at this time. hydralazine has been added by mouth #7. insulin-dependent diabetes mellitus, with poor control due to noncompliance last hemoglobin A1c was 9.8 at this time will hold glipizide, Januvia and metformin, and cover was insulin to sliding scale will adjust medications as needed. Blood sugars have been in the 200s after episode of hypoglycemia. Patient currently on insulin drip for tight blood sugar control. Insulin drip has been DC'd. Patient started on sliding scale coverage #8. underlying history of diabetic complications of peripheral neuropathy and retinopathy. #9. poor compliance with medical management, patient had extensive counseling in the last year, his A1c was down to 7.1 in June however it was up to 9.8 again recently. #10 underlying history of hyperlipidemia maintained on atorvastatin, on hold. #11. Hypoglycemia. Home meds DC'd. Tube feedings have been initiated. Hypoglycemia has resolved #12. volume overload. Patient maintained on IV Lasix. Nephrology services are following #13. History of glaucoma with previous surgeries to left eye. Unequal pupils which patient reports is chronic. patient maintained on multiple eyedrops #14. increased lethargy likely secondary to narcotics and benzos. these were DC'd per critical care. Resolved DVT prophylaxis heparin. GI prophylaxis Protonix Critical care, vascular surgery, infectious disease, cardiology and nephrology services following PT OT consulted social work consulted will likely need ECF upon discharge Planning [facility] ECF upon discharge
[2019-02-08 16:50] LABS: Glucose,Whole Blood 151 mg/dL (75-99)
[2019-02-08 20:32] LABS: Glucose,Whole Blood 177 mg/dL (75-99)
[2019-02-08] MEDS: LATANOPROST 0.005% OPHTH DROPS 2.5 ML BTL LEFT EYE SCH (20:51)
--- NOTE | 2019-02-08 22:41 | PN ---
PROGRESS NOTE February 08, 2019. He has been hemodynamically stable and he is sleeping with his BiPAP on and he is arousable. His respiratory rate is 24, pulse rate of 76, blood pressure 145/67. HEENT reveals BiPAP mask in place. Chest reveals occasional rhonchi. Cardiovascular system is S1, S2. Abdomen is soft. There is 1+ edema and below the knee amputation on the right. IMPRESSION: At this time is: 1. Acute on chronic respiratory failure with recent severe sepsis status post being on mechanical ventilation, which he is on BiPAP when he is asleep and supplemental oxygen as needed. 2. Infection of the right foot status post below knee amputation. 3. Diabetes mellitus. 4. Obesity. Medications were reviewed. Continue the same. Optimize his fluid status. His prognosis is fair. MMODL / IJN: [id number] /
[2019-02-08] MEDS: SODIUM CHLORIDE 0.9% 500 ML IV SCH (23:07)
[2019-02-09 06:17] LABS: Glucose,Whole Blood 138 mg/dL (75-99)
[2019-02-09] MEDS: CALCIUM ACETATE 667 MG TAB PO SCH ×3 (06:33→17:54)
[2019-02-09] MEDS: INSULIN ASPART (NovoLOG) 100 UNIT/ML VIAL SQ SCH ×3 (06:33→18:05)
[2019-02-09 06:48] LABS: Basophils # (A) 0.1 k/uL (0-0.2); Basophils % (A) 1 %; Eosinophils # (A) 0.5 k/uL (0-0.7); Eosinophils % (A) 5 %; HCT 31.6 % (39.0-53.0); HGB 10.1 gm/dL (13.0-17.5); Hypochromasia Slight; Lymphocytes # (A) 1.5 k/uL (1.0-4.8); Lymphocytes % (A) 17 %; MCH 29.7 pg (25.0-35.0); MCHC 32.1 g/dL (31.0-37.0); MCV 92.7 fL (80.0-100.0); Mean Platelet Volume 8.7; Monocytes # (A) 0.6 k/uL (0-1.0); Monocytes % (A) 7 %; Neutrophils # (A) 5.9 k/uL (1.3-7.7); Neutrophils % (A) 68 %; Platelet Count 256 k/uL (150-450); WBC 8.7 k/uL (3.8-10.6)
[2019-02-09 06:49] LABS: Glucose,Whole Blood 157 mg/dL (75-99)
[2019-02-09] MEDS ORDERED: SODIUM BICARB 8.4% 50 ML SYR (1 MEQ/ML) ONE ×4 (06:53→08:36)
[2019-02-09 07:02] LABS: Albumin 3.4 g/dL (3.5-5.0); Calcium 9.3 mg/dL (8.4-10.2); Potassium 4.9 mmol/L (3.5-5.1); Total Bilirubin 0.4 mg/dL (0.2-1.3); Total Protein 7.3 g/dL (6.3-8.2)
[2019-02-09 07:15] LABS: Magnesium 2.4 mg/dL (1.6-2.3)
--- NOTE | 2019-02-09 07:16 | P.EN ---
code jean was called on this patient , initial rhythm was PEA. ACLS was initiated , patient was intubated, epi was given every 3 minutes, and two doses of bicarb was given patient did not receive any shocks rhythm was PEA. ROSC achived after about 18 minutes of coding. EKG post ROSC suggestive of possible underlying afib. patient was transferred to the ICU. we were unable to reach family on all provided phone numbers. Primary team was paged and notified. labs ordered. CXR for ET tube position
[2019-02-09 07:34] LABS: ABG HCO3 19 mmol/L (21-25); ABG PO2 140 mmHg (83-108); ABG TCO2 21 mmol/L (19-24); Allen Test Performed? Yes
[2019-02-09 07:38] LABS: ABG PCO2 76 mmHg (35-45); ABG PH 7.01 (7.35-7.45)
--- NOTE | 2019-02-09 07:46 | XR ---
EXAMINATION TYPE: Portable chest x-ray DATE OF EXAM: 02/09/2019 HISTORY: post intubation and OG placement. REFERENCE: Previous study dated 02/02/2019. FINDINGS: There is a large-bore, double-lumen catheter in place via a right internal jugular approach . Its tip is in the right atrium. The patient is intubated. The tip of the ET tube is in the right main stem bronchus and should be wit hdrawn. An NG tube is present and its tip is in the stomach. There is worsening opacity in the right lung likely secondary to intubation. Heart size is obscured. I suspect small effusions. IMPRESSION: MALPOSITIONING OF THE RIGHT MAINSTEM BRONCHUS WITH ASSOCIATED RIGHT-SIDED AIRSPACE DISEASE. THE ET TU BE SHOULD BE WITHDRAWN AT LEAST 6 CM. THIS REPORT WAS PHONED TO RICHARD IN THE ICU AT THE TIME OF REPORTING.
[2019-02-09] MEDS ORDERED: IPRATROPIUM-ALBUTEROL 3 ML NEB INHALATION PRN (07:57)
[2019-02-09] MEDS ORDERED: NOREPINEPHRINE 1 MG/ML 4 ML VIAL IV ONE (08:05)
[2019-02-09] MEDS ORDERED: PROPOFOL 10 MG/ML 20 ML VIAL IV ONE (08:05)
[2019-02-09] MEDS ORDERED: DEXTROSE 5% IN WATER 250 ML BAG IV ONE (08:05)
[2019-02-09] MEDS ORDERED: SODIUM CHLORIDE 0.9% 1,000 ML BAG ONE (08:05)
[2019-02-09] MEDS ORDERED: SODIUM BICARB 8.4% 50 ML VIAL (1 MEQ/ML) ONE (08:05)
[2019-02-09] MEDS ORDERED: DEXTROSE 5% IN WATER 1,000 ML BAG ONE (08:05)
[2019-02-09] MEDS ORDERED: EPINEPHrine 10 ML SYRINGE (0.1 MG/ML) ONE (08:05)
[2019-02-09 08:22] LABS: Glucose,Whole Blood 204 mg/dL (75-99)
[2019-02-09] MEDS ORDERED: ACETAMINOPHEN IV (For NPO) 1,000 MG in EMPTY BAG 1 BAG IVPB ONE (08:30)
--- NOTE | 2019-02-09 08:36 | P.PN ---
Subjective Progress Note Date: 02/09/19 Principal diagnosis: Refugio is a 68-year-old male seen in consultation because of acute kidney injury, currently hemodialysis dependent last dialysis day before yesterday, 02/07/2019. His ATN is secondary to sepsis. 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 His dialysis was started on 01/24/2019. His urine output is minimal therefore there is no evidence of any recovery of renal function. This morning on 02/09/2019 at 6:30 AM approximately he had a cardiac arrest with the PEA lasting about 25 minutes. He was intubated brought to ICU and had coded again. His EKG shows inferior ischemic changes with ST elevation. Post first arrest blood gases show pH of 7 with lactic acid high 8.8. His pCO2 is 76. Last just before his first code sodium 143 potassium 4.9 chloride 107 bicarb 25 BUN 43 and creatinine is 5. Magnesium was 2.4. His vital signs before this episode of cardiac arrest was fairly stable Yesterday he looked pale and weak but was awake alert oriented and seems stable. history of present illness: Patient is a 68-year-old male seen in consultation for acute kidney injury. Patient presented to the hospital on 01/15/2019 with pain in his toes, particularly fourth and fifth toe, on the right feet. Patient was evaluated by vascular surgery and was noted to have wet gangrene. 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 Last night the patient was noted to be more lethargic. He was noted to be and mixed acute hypercapnic and hypoxic respiratory failure. Patient was intubated and transfe rred to the intensive care unit. Patient was on Levophed overnight but is now discontinued. He is currently receiving a 500 mL bolus of normal saline and is also maintained on normal saline at 100 mL an hour. Patient's urine output has been about 15-20 mL an hour. Patient's blood pressure did drop down into the systolic 60s last night. Additionally he was on LELAND inhibitor which has not been discontinued. In terms of antibiotics he's been on IV vancomycin and Zosyn. Patient's vancomycin level as of 01/18/2019 was 39.6. Vancomycin has been discontinued. Objective - Vital Signs Vital signs: Vital Signs Temp 98 F 02/09/19 03:10 Pulse 86 02/09/19 03:10 Resp 20 02/09/19 03:10 BP 146/72 02/09/19 03:10 Pulse Ox 98 02/09/19 03:10 Intake & Output 02/08/19 02/09/19 02/09/19 18:59 06:59 18:59 Intake Total 280 Output Total 80 Balance 280 -80 Weight 96.5 kg Intake: Oral 280 Output: Urine 80 Other: Voiding Method Indwelling Catheter Indwelling Catheter ABP, PAP, CO, CI - Last Documented Arterial Blood Pressure 149/42 Currently he is intubated post arrest a few minutes ago. HEENT exam no JVP neck is supple. No facial asymmetry noted Lungs are significant for harsh breath sounds. He is on the vent intubated Heart sounds are difficult to hear Abdomen is soft non-distended somewhat protuberant Extremity examination was trace to minimal edema he has BKA right side Neurologically his obtunded - Labs CBC & Chem 7: 02/09/19 06:01 02/09/19 06:01 Labs: Abnormal Lab Results - Last 24 Hours (Table) 02/08/19 02/08/19 02/08/19 Range/Units 11:34 16:41 20:31 RBC (4.30-5.90) m/uL Hgb (13.0-17.5) gm/dL Hct (39.0-53.0) % ABG pH (7.35-7.45) ABG pCO2 (35-45) mmHg ABG pO2 (83-108) mmHg ABG HCO3 (21-25) mmol/L ABG O2 Saturation (94-97) % BUN (9-20) mg/dL Creatinine (0.66-1.25) mg/dL Glucose (74-99) mg/dL POC Glucose (mg/dL) 188 H 151 H 177 H (75-99) mg/dL Plasma Lactic Acid Jose Carlos (0.7-2.0) mmol/L Magnesium (1.6-2.3) mg/dL Albumin (3.5-5.0) g/dL 02/09/19 02/09/19 02/09/19 Range/Units 06:01 06:01 06:16 RBC 3.40 L (4.30-5.90) m/uL Hgb 10.1 L (13.0-17.5) gm/dL Hct 31.6 L (39.0-53.0) % ABG pH (7.35-7.45) ABG pCO2 (35-45) mmHg ABG pO2 (83-108) mmHg ABG HCO3 (21-25) mmol/L ABG O2 Saturation (94-97) % BUN 43 H (9-20) mg/dL Creatinine 5.05 H (0.66-1.25) mg/dL Glucose 160 H (74-99) mg/dL POC Glucose (mg/dL) 138 H (75-99) mg/dL Plasma Lactic Acid Jose Carlos (0.7-2.0) mmol/L Magnesium 2.4 H (1.6-2.3) mg/dL Albumin 3.4 L (3.5-5.0) g/dL 02/09/19 02/09/19 02/09/19 Range/Units 06:38 07:20 07:26 RBC (4.30-5.90) m/uL Hgb (13.0-17.5) gm/dL Hct (39.0-53.0) % ABG pH 7.01 L* (7.35-7.45) ABG pCO2 76 H* (35-45) mmHg ABG pO2 140 H (83-108) mmHg ABG HCO3 19 L (21-25) mmol/L ABG O2 Saturation 98.0 H (94-97) % BUN (9-20) mg/dL Creatinine (0.66-1.25) mg/dL Glucose (74-99) mg/dL POC Glucose (mg/dL) 157 H (75-99) mg/dL Plasma Lactic Acid Jose Carlos 8.8 H* (0.7-2.0) mmol/L Magnesium (1.6-2.3) mg/dL Albumin (3.5-5.0) g/dL 02/09/19 Range/Units 08:04 RBC (4.30-5.90) m/uL Hgb (13.0-17.5) gm/dL Hct (39.0-53.0) % ABG pH (7.35-7.45) ABG pCO2 (35-45) mmHg ABG pO2 (83-108) mmHg ABG HCO3 (21-25) mmol/L ABG O2 Saturation (94-97) % BUN (9-20) mg/dL Creatinine (0.66-1.25) mg/dL Glucose (74-99) mg/dL POC Glucose (mg/dL) 204 H (75-99) mg/dL Plasma Lactic Acid Jose Carlos (0.7-2.0) mmol/L Magnesium (1.6-2.3) mg/dL Albumin (3.5-5.0) g/dL Assessment and Plan Assessment: Assessment: 1. Acute kidney injury secondary to ATN secondary to sepsis. Currently hemodialysis dependent via right chest permacath. Last HD 02/07/2019, no evidence of renal recovery. 2 . Status post cardiac arrest this morning 02/09/2019 twice 1 at 6 AM and the other one around 8 AM. EKG is suggestive of inferior ischemic changes. He has severe respiratory acidosis with a pH of 7 and a pCO2 of 76, on the vent. 3. Lactic acidosis post arrest. 4. Rule out acute SC as the cause of the cardiac arrest 2. Acute hypoxic respiratory failure. re intubated on 02/09/2019 post arrest and had previously been on the vent and was extubated. 3. Right lower extremity ischemia with wet gangrene status post right BKA. 4. Volume overload. Improving with diuresis and ultrafiltration. 5. Metabolic acidosis secondary to acute kidney injury. Expect improvement postdialysis. Maintained on oral sodium bicarbonate. 6. Hyperphosphatemia secondary to acute kidney injury. Better. Maintained on PhosLo. 7. Anemia. Iron def noted. Ferritin high. Maintained on Aranesp. Plan: 1. Will hold off dialysis. 2. His vent settings need to be adjusted for his high pCO2 3. If necessary we will ultrafiltrate him if his oxygenation does not improve or its worst 4. Plan for dialysis tomorrow if necessary
[2019-02-09] MEDS ORDERED: CISATRACURIUM 2 MG/ML 5 ML VIAL IV ONE (08:40)
--- NOTE | 2019-02-09 08:45 | P.PN ---
Subjective Progress Note Date: 02/09/19 68-year-old male patient who got transferred to the intensive care unit after a acute cardiopulmonary arrest that occurred on the medical floor this morning. I am covering today for Dr. Dominguez and for that reason I am seeing this patient in the intensive care unit. Briefly, he has prolonged hypoxic respiratory failure that occurred following a infected gangrenous right foot for which the patient underwent a right below-knee amputation. He had a staphylococcal infection. He also developed acute kidney injury and the patient is currently on dialysis 3 times a week and his last dialysis session was done on Sunday. The patient has also [id number] diabetes mellitus, hypertension and hypertensive heart and peripheral neuropathy and hyperlipidemia and COPD The patient developed an acute cardiac arrest. The patient was found to be unresponsive this morning. He was found to be PA. Immediately, the core he was involved in the patient was given, 4 rounds of epinephrine, bicarbonate he was intubated and brought into the intensive care unit. Initial EKG showed atrial fibrillation. In addition to a significant ST segment elevation involving the inferior leads and a right bundle branch block patter . Within minutes after his arrival to the intensive care unit, the patient is second code which lasted for around 5 minutes and this was a PEA rhythm and currently with going into the third code. He is currently receiving epinephrine and CPR as the patient went into a PEA. Cardiology is on the case. He has seen the patient the bedside. Breath sounds are equal and bilateral. Potassium level is at 4.7. The blood gases that was done and I showed a pH of 7.01 with a pCO2 of 76 and pO2 of 140. His lactic acid level was 8.8. His BUN is at 43 with a creatinine of 5.0 and a serum bicarbonate this morning prior to the code was 25. His hemoglobin was at 10.1. White cell count of 8.7. Objective - Vital Signs Vital signs: Vital Signs Temp 98 F 02/09/19 03:10 Pulse 86 02/09/19 03:10 Resp 20 02/09/19 03:10 BP 146/72 02/09/19 03:10 Pulse Ox 98 02/09/19 03:10 Intake & Output 02/08/19 02/09/19 02/09/19 18:59 06:59 18:59 Intake Total 280 Output Total 80 Balance 280 -80 Weight 96.5 kg Intake: Oral 280 Output: Urine 80 Other: Voiding Method Indwelling Catheter Indwelling Catheter ABP, PAP, CO, CI - Last Documented Arterial Blood Pressure 149/42 - Exam The patient is morbidly obese, comfortable intubated. Immediately following the third CPR from his cardiac rhythm back into sinus and his most recent BP is systolic mid 80s the patient is a mechanical ventilator rate of 30 with TV volume of 50O with an FiO2 of percent 100% and PEEP of 8 Head exam was generally normal. There was no scleral icterus or corneal arcus. Mucous membranes were moist. The patient looks somewhat stenotic os code. Neck was supple and without jugular venous distension, thyromegaly, or carotid bruits. Carotids were easily palpable bilaterally. There was no adenopathy. Orotracheal tube is in place. The patient has a relatively dialysis catheter. Lungs equal and symmetrical breath sounds with a mechanical ventilator. No rhonchi. No wheezing. Cardiac exam revealed the PMI to be normally situated and sized. The rhythm was regular and no extrasystoles were noted during several minutes of auscultation. The first and second heart sounds were normal and physiologic splitting of the second heart sound was noted. There were no murmurs, rubs, clicks, or gallops. Abdominal exam revealed normal bowel sounds. The abdomen was soft, non-tender, and without masses, organomegaly, or appreciable enlargement of the abdominal a dre. The abdomen is slightly distended and there is no organomegaly. The below-knee dictation the right. Left lower extremity shows trace edema and tenderness or guarding. Fingers and toes and the rest of the limbs I will cyanotic. Neurologically the patient is fixed dilated pupils. Completely unresponsive. - Labs CBC & Chem 7: 02/09/19 06:01 02/09/19 06:01 Labs: Abnormal Lab Results - Last 24 Hours (Table) 02/08/19 02/08/19 02/08/19 Range/Units 11:34 16:41 20:31 RBC (4.30-5.90) m/uL Hgb (13.0-17.5) gm/dL Hct (39.0-53.0) % ABG pH (7.35-7.45) ABG pCO2 (35-45) mmHg ABG pO2 (83-108) mmHg ABG HCO3 (21-25) mmol/L ABG O2 Saturation (94-97) % BUN (9-20) mg/dL Creatinine (0.66-1.25) mg/dL Glucose (74-99) mg/dL POC Glucose (mg/dL) 188 H 151 H 177 H (75-99) mg/dL Plasma Lactic Acid Jose Carlos (0.7-2.0) mmol/L Magnesium (1.6-2.3) mg/dL Albumin (3.5-5.0) g/dL 02/09/19 02/09/19 02/09/19 Range/Units 06:01 06:01 06:16 RBC 3.40 L (4.30-5.90) m/uL Hgb 10.1 L (13.0-17.5) gm/dL Hct 31.6 L (39.0-53.0) % ABG pH (7.35-7.45) ABG pCO2 (35-45) mmHg ABG pO2 (83-108) mmHg ABG HCO3 (21-25) mmol/L ABG O2 Saturation (94-97) % BUN 43 H (9-20) mg/dL Creatinine 5.05 H (0.66-1.25) mg/dL Glucose 160 H (74-99) mg/dL POC Glucose (mg/dL) 138 H (75-99) mg/dL Plasma Lactic Acid Jose Carlos (0.7-2.0) mmol/L Magnesium 2.4 H (1.6-2.3) mg/dL Albumin 3.4 L (3.5-5.0) g/dL 02/09/19 02/09/19 02/09/19 Range/Units 06:38 07:20 07:26 RBC (4.30-5.90) m/uL Hgb (13.0-17.5) gm/dL Hct (39.0-53.0) % ABG pH 7.01 L* (7.35-7.45) ABG pCO2 76 H* (35-45) mmHg ABG pO2 140 H (83-108) mmHg ABG HCO3 19 L (21-25) mmol/L ABG O2 Saturation 98.0 H (94-97) % BUN (9-20) mg/dL Creatinine (0.66-1.25) mg/dL Glucose (74-99) mg/dL POC Glucose (mg/dL) 157 H (75-99) mg/dL Plasma Lactic Acid Jose Carlos 8.8 H* (0.7-2.0) mmol/L Magnesium (1.6-2.3) mg/dL Albumin (3.5-5.0) g/dL 02/09/19 Range/Units 08:04 RBC (4.30-5.90) m/uL Hgb (13.0-17.5) gm/dL Hct (39.0-53.0) % ABG pH (7.35-7.45) ABG pCO2 (35-45) mmHg ABG pO2 (83-108) mmHg ABG HCO3 (21-25) mmol/L ABG O2 Saturation (94-97) % BUN (9-20) mg/dL Creatinine (0.66-1.25) mg/dL Glucose (74-99) mg/dL POC Glucose (mg/dL) 204 H (75-99) mg/dL Plasma Lactic Acid Jose Carlos (0.7-2.0) mmol/L Magnesium (1.6-2.3) mg/dL Albumin (3.5-5.0) g/dL Assessment and Plan Plan: 1 acute cardiac arrest post acute ST segment elevation myocardial infarction. The patient has 3 segment elevation inferior leads and addition to the anterior leads and a bundle-branch block pattern which is a RBB pattern and is sinus rhythm. The patient had 3 cardiac arrests with downtime of 25 minutes during the initial code and subsequently 5 minutes and another 5 minutes code here in the ICU. The most recent EKG showing ST segment elevation involving the inferior leads. Currently is on norepinephrine infusion at the rate of 0.3 intubated on a mechanical ventilator on assist control mode. Completely u nresponsive with fixed dilated pupils. 2 shock postcardiac arrest currently on pressors 3 acute kidney injury currently on dialysis 3 times a week last dialysis being on Sunday without any major electrolyte disturbances. 4 severe metabolic acidosis and respiratory acidosis secondary to cardiac arrest 5 diabetes mellitus 6 below-knee amputation on the right 7 gangrenous foot status post BKA on the right MRSA infection 8. Severe Vascular disease 9 obesity. 10 unresponsiveness secondary to cardiac arrest 11 hepatitis B Plan Continue monitoring hemodynamics I'm going to proceed with a central line insertion, Artline insertion Continue vent support Chest x-ray Pressors and norepinephrine infusion Repeat blood gases We'll proceed with a cardiac catheterization if stability is achieved over the next 10-15 minutes. Condition is critical High mortality and the family will be informed. Time with Patient: Greater than 30
[2019-02-09 08:51] LABS: INR 1.2 (<1.2); Partial Thromboplastin Time 38.9 sec (22.0-30.0); Prothrombin Time 12.3 sec (9.0-12.0)
[2019-02-09 08:53] LABS: Glucose,Whole Blood 198 mg/dL (75-99)
--- NOTE | 2019-02-09 08:54 | P.PN ---
Progress Note - Text Progress Note Date: 02/09/19 MONTY PENA called this patient for PEA around 8:30 AM. He was given 1 round of epinephrine, bicarbonate, did not require defibrillation, ROSC was achieved around 8:35 AM. Rhythm showed A-Fibrillation and diffuse ST wave elevation. Cardiology Dr. Cárdenas and Dr. Bear at bedside. MONTY pena called again around 8:40 AM for PEA. ROSC achieved with 2 rounds of epinephrine, 3 amps of bicarbonate given. Repeat CXR ordered to check for ET tube position. Bicarb drip requested. Plan is to take the patient to the cardiac cath technician if he is able to be stabilized. Total time present during MONTY LIN is 25 minutes.
[2019-02-09] MEDS: IPRATROPIUM-ALBUTEROL 3 ML NEB INHALATION SCH ×4 (08:56→19:34)
--- NOTE | 2019-02-09 09:00 | P.PCN ---
Date of Procedure: 02/09/19 Preoperative Diagnosis: Cardiac arrest Postoperative Diagnosis: Cardiac arrest Procedure(s) Performed: Arterial line insertion Anesthesia: local Surgeon: Ingrid Bear Estimated Blood Loss (ml): 0 Pathology: other Condition: critical Disposition: ICU Description of Procedure: Indication: Hemodynamic monitoring. Pre-op diagnosis, cardiac arrest postop diagnosis same A time-out was completed verifying correct patient, procedure, site, positioning, and implant(s) or special equipment if applicable. Allens test was performed to ensure adequate perfusion. The patients right wrist or was prepped and draped in sterile fashion. 1% Lidocaine was used to anesthetize the area. An 18G Arrow arterial line was introduced into the [radial/femoral] artery. The catheter was threaded over the guide wire and the needle was removed with appropriate pulsatile blood return. Blood loss was minimal. The catheter was then sutured in place to the skin and a sterile dressing applied. Perfusion to the extremity distal to the point of catheter insertion was checked and found to be adequate. The patient tolerated the procedure well and there were no complications.
--- NOTE | 2019-02-09 09:02 | P.PCN ---
Date of Procedure: 02/09/19 Preoperative Diagnosis: Cardiac arrest Postoperative Diagnosis: Cardiac arrest Procedure(s) Performed: Insertion of a triple-lumen catheter Anesthesia: local Surgeon: Ingrid Bear Estimated Blood Loss (ml): 0 Pathology: none sent Condition: critical Disposition: ICU Operative Findings: Indication: Hemodynamic monitoring/Intravenous access. A time-out was completed verifying correct patient, procedure, site, positioning, and implant(s) or special equipment if applicable. The patient was placed in a dependent position appropriate for central line placement based on the vein to be cannulated. The patients left neck was prepped and draped in sterile fashion. 1% Lidocaine was used to anesthetize the surrounding skin area. A triple lumen 9F Cordis catheter was introduced into the left jugular internal jugular vein using Seldinger technique. The catheter was threaded smoothly over the guide wire and appropriate blood return was obtained. Each lumen of the catheter was evacuated of air and flushed with sterile saline. The catheter was then sutured in place to the skin and a sterile dressing applied. Perfusion to the extremity distal to the point of catheter insertion was checked and found to be adequate. The patient tolerated the procedure well and there were no complications.
[2019-02-09] MEDS: HEPARIN SODIUM,PORCINE 5,000 UNIT/ML 1 ML VIAL SQ SCH (09:09)
--- NOTE | 2019-02-09 09:14 | XR ---
EXAMINATION TYPE: XR chest 1V portable DATE OF EXAM: 02/09/2019 HISTORY: intubation/ code. REFERENCE: Previous study dated 02/09/2019. FINDINGS: The patient is ET tube has been withdrawn. There is now approximately 3.9 cm from the carolyn a. An NG tube remains in place and its tip is in the stomach. There is a large-bore, double-lumen cat heter via a right internal jugular approach. Its tip is in the right atrium. There is improved aeration of the right lung. Residual airspace disease persists which may be residua l atelectasis or infiltrate. There is atelectasis at the left lung base. There is right-sided pleural effusion. The heart is mildly prominent. IMPRESSION: 1. SATISFACTORY ET TUBE PLACEMENT. 2. IMPROVED AERATION, RIGHT LUNG. 3. BIBASILAR ATELECTASIS, WORSE ON THE RIGHT THAN THE LEFT.
[2019-02-09 09:15] LABS: ABG Base Excess 0.5 mmol/L; ABG HCO3 26 mmol/L (21-25); ABG Oxygen Saturation 96.8 % (94-97); ABG PCO2 50 mmHg (35-45); ABG PH 7.33 (7.35-7.45); ABG PO2 85 mmHg (83-108); ABG TCO2 28 mmol/L (19-24); Allen Test Performed? Yes
[2019-02-09] MEDS ORDERED: DEXTROSE 5% IN WATER 1,000 ML with SODIUM BICARB (1 MEQ/ML) 150 ML IV ONE (09:15)
[2019-02-09] MEDS ORDERED: HEPARIN SOD,PORK IN 0.45% NACL 25,000 UNIT in 0.45% NACL 1 250ML.BAG IV SCH (09:15)
[2019-02-09] MEDS: EPINEPHrine 4 MG in DEXTROSE 5% IN WATER 250 ML IV SCH ×8 (09:30→21:40)
[2019-02-09] MEDS ORDERED: IV FLUID CONTINUATION 1,000 ML IV ONE ×2 (09:50)
[2019-02-09] MEDS ORDERED: ASPIRIN 325 MG TAB ONE (09:59)
[2019-02-09] MEDS ORDERED: ASPIRIN 325 MG TAB OG-TUBE ONE (10:00)
[2019-02-09] MEDS ORDERED: LIDOCAINE 1% INJ 10MG/ML (20 ML MDV) ONE (10:04)
[2019-02-09] MEDS ORDERED: LIDOCAINE 1% INJ 10MG/ML (20 ML MDV) SQ ONE (10:08)
[2019-02-09] MEDS ORDERED: TICAGRELOR 90 MG TAB ONE (10:25)
[2019-02-09] MEDS ORDERED: BIVALIRUDIN BOLUS 250 MG/50 ML IV ONE (10:32)
[2019-02-09] MEDS ORDERED: TICAGRELOR 90 MG TAB OG-TUBE ONE (10:33)
[2019-02-09] MEDS ORDERED: BIVALIRUDIN 250 MG in SODIUM CHLORIDE 0.9% 50 ML IV ONE (10:35)
--- NOTE | 2019-02-09 10:40 | P.CARDCATH ---
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 Possible previous silent VA and peripheral vascular disease who was admitted to the hospital with ischemic leg and had surgery done.. Subsequently patient spent several days in the intensive care unit being also on the ventilator. Patient was transferred to selective coronary unit, about 2 days ago. Apparently patient became more lethargic yesterday ,and this morning patient had a cardiac arrest with pulseless activity. Patient had a CPR for 20 minutes and then subsequent transfer to intensive care unit. In the intensive care uni, Patient's blood pressure again dropped and EKG showed evidence of inferior wall VA. Patient had 3 or 4 episodes of Cardec pulmonary arrest requiring CPR. Patient was seen and evaluated by Dr. Bear. Patient says that taking tube has to be adjusted and central lines were put in with gradual improvement in oxygenation. EKG continued to show any evidence of inferior wall VA. Patient was brought to the catheter lab for further evaluation and for possible intervention. No family could be reached. Family physician is aware of the circumstances. At the beginning of the procedure. Patient's pupils are dilated and fixed. There is concerned that patient most probably had significant cerebellar injury. Prognosis is poor CONSENT: Patient is intubated and unresponsive. No family members could be reached. No consent was obtained. Patient was brought in to the recomme ndations of Dr. Bear and family physician PROCEDURE: Patient was brought to the lab in a fasting state. Patient is intubated and sedated The right groin is infiltrated with lidocaine and right femoral artery was entered using Seldinger technique. A 6-Georgian catheter was left in place and selective coronary arteriography was performed. Patient tolerated the procedure well. Femoral angiogram was performed No immediate complications were noted and patient went on to have stent placement of the RCA by Dr. Cardoza Conscious Sedation: Versed []mg Fentanyl [] g Duration 20minutes HEMODYNAMICS: Aortic pressure is 150/80. The left ventricle end-diastolic pressure is 16 SELECTIVE CORONARY ARTERIOGRAPHY: LEFT MAIN: Normal length and free of any critical lesions THE LEFT ANTERIOR DESCENDING CORONARY ARTERY: Moderate caliber vessel with diffuse plaque and calcification in the midportion without any critical lesions THE LEFT CIRCUMFLEX AND IS CORONARY ARTERY: Nondominant vessel free of any significant occlusive disease THE RIGHT CORONARY ARTERY: Dominant vessel totally o ccluded in the distal portion. Seemed to be heavily calcified in the distal portion LEFT VENTRICULOGRAPHY: Not performed FINAL IMPRESSION:. Total occlusion of the distal RCA. Status post cardiac arrest times several times PLAN: Stent placement the RCA being done by Dr. Cardoza. PROGNOSIS: Poor
[2019-02-09] MEDS ORDERED: MIDAZOLAM 2 MG/2 ML VIAL IVP ONE (10:41)
[2019-02-09] MEDS ORDERED: IOPAMIDOL-370 125ML BTL INJ ONE (10:42)
[2019-02-09] MEDS ORDERED: NITROGLYCERIN 1000MCG/10ML SYRINGE INTRACORON ONE (10:58)
[2019-02-09] MEDS: BRIMONIDINE TARTRATE 0.2% DROPS 5 ML BTL LEFT EYE SCH ×3 (11:08→21:33)
[2019-02-09] MEDS: CHLORHEXIDINE GLUCONATE 15 ML CUP MUCOUS MEM SCH ×2 (11:09→20:38)
[2019-02-09] MEDS: DORZOLAMIDE HCL 2% DROPS 10 ML BTL LEFT EYE SCH ×3 (11:09→21:34)
[2019-02-09] MEDS: TIMOLOL 0.5% OPHTH DROPS 5 ML BTL LEFT EYE SCH ×2 (11:10→21:20)
[2019-02-09] MEDS ORDERED: MAG HYDROX/AL HYDROX/SIMETH 30 ML CUP PO PRN (11:26)
[2019-02-09] MEDS ORDERED: ATROPINE SULFATE 0.1 MG/ML 10ML SYRINGE IV PRN (11:26)
[2019-02-09] MEDS ORDERED: RX INFO: IV CONTRAST WAS GIVEN 1 EACH MISC MISCELLANE PRN (11:26)
[2019-02-09] MEDS ORDERED: NITROGLYCERIN SL TABS 0.4 MG TAB SUBLINGUAL PRN (11:26)
[2019-02-09] MEDS ORDERED: ZOLPIDEM 5 MG TAB PO PRN (11:26)
[2019-02-09] MEDS ORDERED: IOPAMIDOL-370 100ML BTL INJ ONE (11:30)
--- NOTE | 2019-02-09 11:42 | P.PN ---
Subjective Progress Note Date: 02/09/19 Refugio Saenz, is a 68-year-old male who presented to [facility] emergency room with pain in the right foot, he was evaluated in emergency room and had blackish discoloration of the right fifth toe with surrounding erythema and tenderness, patient was started on IV antibiotics Zosyn, vancomycin, and clindamycin, he was admitted to medical floor vascular surgery consultation was requested for possible amputation due to evidence of gangrene. Infectious disease consultation was requested. Patient has a known history of insulin-dependent diabetes mellitus, his glucose level was well controlled up until September of this year his A1c in June was 7.1 and in September was 7.3 however apparently patient stopped taking his insulin and his medications and his A1c was up to 9.8 in November, he has a known history of right foot ulcer he was admitted to the hospital with right foot cellulitis and ulcer in 2014 and he was followed at the wound care clinic in 2015 however he was doing well up until recently. Patient also has a known history of hypertension, hyperlipidemia, he denies any history of coronary artery disease or congestive heart failure, he had an echocardiogram done in 2014 at that time he had normal left ventricular function was normal ejection fraction, no significant valvular disease and no pulmonary hypertension. 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 On 01/17/2019 patient's alert and oriented 3. Patient had fourth and fifth toe amputation with Dr. Edward this morning. Patient having some low blood pressure will give 500 mL bolus. Patient denies chest pain or shortness of breath. Patient denies nausea vomiting or diarrhea. Patient is having some increased pain to foot area pain medications ordered 01/18/2019, patient seen eval examined while covering for Dr. Granger, waking up this morning slightly slow to respond but not confused, breathing comfortably denies any chest pain labs reviewed today patient has been evaluated by Dr. Bassett, white cell count is coming down to 19,000, lactic acid level is normalized, patient has been on broad-spectrum antibiotics with vascular surgery on board 01/19/2019, patient seen and evaluated examined in the ICU intubated on full ventilator support, patient had gradual loss of consciousness has been more lethargic arterial blood gases were checked shows hypercapnic and hypoxic respiratory failure was intubated in the ICU, patient has been placed on propo fol he was volume depleted depleted aggressive fluid resuscitation were performed, is still requiring levophed intermittently, patient was also noted to be hypoglycemic 7030 insulin and other oral hypoglycemic agents were discontinued, ultrasound of the abdomen has been performed which is reviewed no obvious hydronephrosis seen, patient has decreased urine output along with rising BUN/creatinine appeared to be acute tubular necrosis, patient also requiring intermittent bolus of D10 for hypoglycemia, wounds has been evaluated by vascular surgery noted recommendation, patient has very poor venous access, will put a central line in, critical care time 45 minutes during procedure, due to altered mental status CT of the head was performed which was negative On 01/20/2019 patient remains in the intensive care unit on mechanical ventilation. Levophed has been on hold blood pressures has sustained. Creatinine has increased to 4.17 and bun 56. Nephrology services are following. Per nursing staff patient does follow commands during sedation holiday ABGs have improved. Discussed case with vascular surgeon nurse practitioner possible BKA discussion. White blood cell decreasing to 16.0. Critical care services are following. Patient remains on Zosyn for IV antibiotics. Infectious disease following 01/21/2019 patient remains on mechanical ventilation on in the intensive care unit. Patient remains sedated, on propofol. However per nursing staff patient does follow commands during sedation holiday. Patient is on 50% FiO2, 5 PEEP, tidal volume 500. Levophed off since 01/20/20. Blood pressure remains in the 130's-150's systolic. Creatinine 4.35 from 4.17 and BUN 57 from 56, Calcium 7.0, phosphorus 5.9 Nephrology is following. Orogastric tube replaced this morning. Per nursing staff OG tube was coiled in patient's mouth with tube feeds running. Chest x-ray repeated, no significant change from previous. ABG improving, still metabolic acidosis. WBC of 14.1 down from 16. Afebrile. Infectious disease is following patient is maintained on Zosyn. Will send C. diff sample due to new onset diarrhea for 1 day. Hyperglycemia noted (glucose 200's). Will discuss tube feed formula with dietary. If no changes can be made will adjust sliding scale. On 01/22/2019 patient remains sedated on mechanical ventilation in the intensive care unit. Per nursing staff patient is to have a BKA today with Dr. Edward. Patient remains off pressors, blood pressure has been stable. Chest x-ray repeated this morning, per pulmonary. No significant change in ABGs. Creatinine continues to increase, 4.84 today BUN 60, patient is still making adequate urine output nephrology is following. Tube feeds on hold, for pending OR. WBC 14.2, temperature overnight 100F. Please is following patient is maintained on Zosyn. C. diff sample was negative. 01/23/2019 patient remains sedated and on mechanical ventilation in the ICU. He underwent right BKA yesterday, 01/22/[address] Edward. Estimated blood loss 150 mL. He had a temp of 100 last night. Urine output is about 50 mL per hour. Creatinine has gone down from 4.84-4.82. Nephrology is following closely. No plans for hemodialysis yet. Patient's blood sugars are starting to become more elevated. They're in the 180s to 200s. Tube feedings are being adjusted. White count 13.7 hemoglobin 10.3 On 01/24/2019 patient remains sedated on mechanical ventilation in the intensive care unit. Decreased urine output throughout night. Creatinine 5.15 and bun 68. Patient remains on insulin drip. WBC 14.1. Patient having low-grade temps. Patient remains closely followed by critical care consulting providers On 01/25/2019 patient was seen and examined in the intensive care unit, he is currently alert and maintained on BiPAP trial, he is making more urine output, and no hemodialysis is scheduled at this time, creatinine improved, down from 5.15-4.44 white blood count down to 11.3 patient is followed by nephrology, infectious disease, pulmonary and critical care and vascular surgery On 01/26/2019 patient was seen and examined in the ICU, he is intubated sedated maintained on mechanical ventilation, creatinine went up today and he was started on hemodialysis, Zosyn has today, at this time will resume Zosyn, we have asked infectious disease to see patient and reassess antibiotics, otherwise patient is stable there is no fever or chills, he continues to have a rectal tube and having large amount of diarrhea, C. diff was checked and was negative will repeat test today. On 01/27/2019 patient remains on mechanical ventilation in the intensive care unit. Creatinine trending down today 4.76 and bun 77. Patient remains on Lasix drip per nephrology services. White count 11.8. She remains on IV Zosyn. Sedation holiday performed per nursing staff and critical care recommendation. On 01/28/2019 patient remains in the intensive care unit on mechanical ventilation. Sedation currently turned off. Patient is awake and following commands possible extubation today per critical care. Patient also received hemodialysis this will be the patient's third round of hemodialysis. Creatinine is trending down 4.44. Patient remains on Lasix drip. On 01/29/2019 patient remains in ICU intubated sedated maintained on mechanical ventilation, he had to CPAP trials yesterday, he is still maintained on hemodialysis, creatinine is elevated at 4.8 and BUN 89. On 01/30/2019 patient remains on mechanical ventilation in the intensive care unit. Patient is off sedation at this time and following commands. CPAP trial in place. Possible extubation today. Patient currently getting hemodialysis. Permanent hemodialysis catheter placed yesterday. Creatinine is trending down. Patient taken off insulin drip. on 01/31/2019 patient remains in intensive care unit on mechanical ventilation. Discussed case with critical care doctor Dr. Dominguez Yesterday. Patient unable to wean. we'll continue to monitor patient over the weekend and consider possible trach next week. Patient also received hemodialysis yesterday. On 02/01/2019 patient was seen and examined in the ICU he is intubated and ma intained on mechanical ventilation sedation is being stopped now for CPAP trial on 02/02/2019 patient was seen and examined in the ICU he has been extubated since yesterday, he is tolerating well maintained on oxygen via nasal cannula, he seems somnolent however he is opening his eyes and answering questions by nodding his head and trying to speak, there is no fever or chills no headache or dizziness no chest pain no shortness of breath he has occasional cough no nausea or vomiting no abdominal pain. on 02/03/2019 patient is currently sitting up in chair on nasal cannula. Patient does wake up and follow commands. Per nursing staff antibiotics due to ID is following per nursing will get a hold of infectious disease to further evaluate need for antibiotics. at this time patient denies chest pain or shortness of breath. Patient denies nausea vomiting or diarrhea. Patient denie s any urinary burning or frequency. patient to receive hemodialysis today remains on IV Lasix on 02/04/2019 patient is currently resting comfortably in bed. Patient is alert and oriented. Per nursing staff patient no longer needs antibiotics Dr. Bassett is following for infectious disease.patient received dialysis yesterday will receive hemodialysis again tomorrow maintained on IV Lasix. Elevated blood pressure. Hydralazine by mouth has been added. At this time patient denies chest pain or shortness of breath. Patient denies nausea vomiting or diarrhea. Patient denies any urinary burning or frequency. on 02/05/2019 patient is currently resting comfortably in chair. Per nursing staff patient had episode of increased lethargy last night requiring BiPAP and Narcan. per critical care and narcotics and benzos were DC'd at this time. Patient is now awake and alert 3. Patient able to follow commands and answer all questions. Patient denies any chest pain or shortness of breath. Patient denies nausea vomiting or diarrhea. Patient denies any urinary burning or frequency. 02/06/2019 patient is currently resting comfortably in bed.Patient did undergo hemodialysis yesterday. Lasix has been decreased per nephrology. Patient denies chest pain or shortness of breath. Patient denies vomiting or diarrhea. Patient denies any urinary burning or frequency. Working on discharge planning possible discharge to ECF next week. On 02/07/2019 patient has moved out of the intensive care unit to [facility] care. Patient currently getting hemodialysis. Discussed case with nephrology services planning to do dialysis today and hold off during the weekends assess patient renal function on Sunday. Also patient is planning to be discharged to ECF now. This time patient denies chest pain. Patient denies nausea vomiting or diarrhea. Patient having some mild discomfort back will add Tylenol. Patient denies any urinary burning or frequency edward catheter remains in place. On 02/08/2019 patient was seen and examined on the telemetry floor he is alert responsive in no apparent distress he was more confused today, there is no fever or chills no headache or dizziness no chest pain no shortness of breath no cough no nausea or vomiting no abdominal pain no diarrhea no burning with urination no frequency or urgency and no hematuria. On 02/09/2019 patient had cardiac arrest this morning he was coded multiple times and was transferred to intensive care unit, he was seen by Dr. Bear who was covering for Dr. Dominguez, he was also seen by cardiology EKG revealed ST elevation in inferior leads patient was taken to the label cutter for acute inferior wall OK. Objective - Vital Signs Vital signs: Vital Signs Temp 98 F 02/09/19 03:10 Pulse 100 02/09/19 09:30 Resp 30 H 02/09/19 09:00 BP 150/85 02/09/19 09:40 Pulse Ox 80 L 02/09/19 09:10 Intake & Output 02/08/19 02/09/19 02/09/19 18:59 06:59 18:59 Intake Total 280 Output Total 80 Balance 280 -80 Weight 96.5 kg Intake: Oral 280 Output: Urine 80 Other: Voiding Method Indwelling Catheter Indwelling Catheter ABP, PAP, CO, CI - Last Documented Arterial Blood Pressure 192/95 - Exam Physical exam not done today due to patient being in in the label cutter - Labs CBC & Chem 7: 02/09/19 06:01 02/09/19 06:01 Labs: Abnormal Lab Results - Last 24 Hours (Table) 02/08/19 02/08/19 02/08/19 Range/Units 11:34 16:41 20:31 RBC (4.30-5.90) m/uL Hgb (13.0-17.5) gm/dL Hct (39.0-53.0) % PT (9.0-12.0) sec INR (<1.2) APTT (22.0-30.0) sec ABG pH (7.35-7.45) ABG pCO2 (35-45) mmHg ABG pO2 (83-108) mmHg ABG HCO3 (21-25) mmol/L ABG Total CO2 (19-24) mmol/L ABG O2 Saturation (94-97) % BUN (9-20) mg/dL Creatinine (0.66-1.25) mg/dL Glucose (74-99) mg/dL POC Glucose (mg/dL) 188 H 151 H 177 H (75-99) mg/dL Plasma Lactic Acid Jose Carlos (0.7-2.0) mmol/L Magnesium (1.6-2.3) mg/dL Albumin (3.5-5.0) g/dL 02/09/19 02/09/19 02/09/19 Range/Units 06:01 06:01 06:16 RBC 3.40 L (4.30-5.90) m/uL Hgb 10.1 L (13.0-17.5) gm/dL Hct 31.6 L (39.0-53.0) % PT (9.0-12.0) sec INR (<1.2) APTT (22.0-30.0) sec ABG pH (7.35-7.45) ABG pCO2 (35-45) mmHg ABG pO2 (83-108) mmHg ABG HCO3 (21-25) mmol/L ABG Total CO2 (19-24) mmol/L ABG O2 Saturation (94-97) % BUN 43 H (9-20) mg/dL Creatinine 5.05 H (0.66-1.25) mg/dL Glucose 160 H (74-99) mg/dL POC Glucose (mg/dL) 138 H (75-99) mg/dL Plasma Lactic Acid Jose Carlos (0.7-2.0) mmol/L Magnesium 2.4 H (1.6-2.3) mg/dL Albumin 3.4 L (3.5-5.0) g/dL 02/09/19 02/09/19 02/09/19 Range/Units 06:38 07:20 07:20 RBC (4.30-5.90) m/uL Hgb (13.0-17.5) gm/dL Hct (39.0-53.0) % PT 12.3 H (9.0-12.0) sec INR 1.2 H (<1.2) APTT 38.9 H (22.0-30.0) sec ABG pH (7.35-7.45) ABG pCO2 (35-45) mmHg ABG pO2 (83-108) mmHg ABG HCO3 (21-25) mmol/L ABG Total CO2 (19-24) mmol/L ABG O2 Saturation (94-97) % BUN (9-20) mg/dL Creatinine (0.66-1.25) mg/dL Glucose (74-99) mg/dL POC Glucose (mg/dL) 157 H (75-99) mg/dL Plasma Lactic Acid Jose Carlos 8.8 H* (0.7-2.0) mmol/L Magnesium (1.6-2.3) mg/dL Albumin (3.5-5.0) g/dL 02/09/19 02/09/19 02/09/19 Range/Units 07:26 08:04 08:23 RBC (4.30-5.90) m/uL Hgb (13.0-17.5) gm/dL Hct (39.0-53.0) % PT (9.0-12.0) sec INR (<1.2) APTT (22.0-30.0) sec ABG pH 7.01 L* (7.35-7.45) ABG pCO2 76 H* (35-45) mmHg ABG pO2 140 H (83-108) mmHg ABG HCO3 19 L (21-25) mmol/L ABG Total CO2 (19-24) mmol/L ABG O2 Saturation 98.0 H (94-97) % BUN (9-20) mg/dL Creatinine (0.66-1.25) mg/dL Glucose (74-99) mg/dL POC Glucose (mg/dL) 204 H 198 H (75-99) mg/dL Plasma Lactic Acid Jose Carlos (0.7-2.0) mmol/L Magnesium (1.6-2.3) mg/dL Albumin (3.5-5.0) g/dL 02/09/19 Range/Units 09:13 RBC (4.30-5.90) m/uL Hgb (13.0-17.5) gm/dL Hct (39.0-53.0) % PT (9.0-12.0) sec INR (<1.2) APTT (22.0-30.0) sec ABG pH 7.33 L (7.35-7.45) ABG pCO2 50 H (35-45) mmHg ABG pO2 (83-108) mmHg ABG HCO3 26 H (21-25) mmol/L ABG Total CO2 28 H (19-24) mmol/L ABG O2 Saturation (94-97) % BUN (9-20) mg/dL Creatinine (0.66-1.25) mg/dL Glucose (74-99) mg/dL POC Glucose (mg/dL) (75-99) mg/dL Plasma Lactic Acid Jose Carlos (0.7-2.0) mmol/L Magnesium (1.6-2.3) mg/dL Albumin (3.5-5.0) g/dL Assessment and Plan Plan: #1 gangrene involving the right fifth toe with surrounding cellulitis Status post amputation of fourth and fifth toe with Dr. Edward and status post right BKA. #2 sepsis present on admission as evidenced by fever, leukocytosis, and elevated lactic acid. wound cultures growing gram-negative bacilli. White blood cell improving down to 9.3. patient has completed course of antibiotics per infectious disease no need for antibiotics at this time #3 acute hypoxic and hypercapnic respiratory failure with altered mental status changes secondary to severe sepsis. Patient was transferred to the intensive care unit and placed on mechanical ventilation. patient has been successfully extubated to 2 L. #4. Hypotension secondary to septic shock requiring Levophed for pressure support. resolved #5. Acute kidney injury secondary to ATN secondary to hypotension as well as vancomycin toxicity. Nephrology services are following. Ultrasound completed showing no evidence of hydronephrosis. currently receiving hemodialysis. Permanent hemodialysis catheter placed on 01/29/2019. #6. history of essential hypertension. Cardiology services following. EF 50- 55%. Per cardiology services no evidence of acute coronary syndrome at this time. hydralazine has been added by mouth #7. insulin-dependent diabetes mellitus, with poor control due to noncompliance last hemoglobin A1c was 9.8 at this time will hold glipizide, Januvia and metformin, and cover was insulin to sliding scale will adjust medications as nee ded. Blood sugars have been in the 200s after episode of hypoglycemia. Patient currently on insulin drip for tight blood sugar control. Insulin drip has been DC'd. Patient started on sliding scale coverage #8. underlying history of diabetic complications of peripheral neuropathy and retinopathy. #9. poor compliance with medical management, patient had extensive counseling in the last year, his A1c was down to 7.1 in June however it was up to 9.8 again recently. #10 underlying history of hyperlipidemia maintained on atorvastatin, on hold. #11. Hypoglycemia. Home meds DC'd. Tube feedings have been initiated. Hypoglycemia has resolved #12. volume overload. Patient maintained on IV Lasix. Nephrology services are following #13. History of glaucoma with previous surgeries to left eye. Unequal pupils which patient reports is chronic. patient maintained on multiple eyedrops #14. increased lethargy likely secondary to narcotics and benzos. these were DC'd per critical care. Resolved #[address] elevation inferior wall OK with cardiac arrest requiring multiple prolonged codes. Patient is currently in the label cutter undergoing cardiac catheterization. DVT prophylaxis heparin. GI prophylaxis Protonix Critical care, vascular surgery, infectious disease, cardiology and nephrology services following Prognosis guarded. PT OT consulted social work consulted will likely need ECF upon discharge Planning [facility] upon discharge
[2019-02-09 11:57] LABS: ABG Base Excess -2.1 mmol/L; ABG HCO3 25 mmol/L (21-25); ABG Oxygen Saturation 91.3 % (94-97); ABG PCO2 53 mmHg (35-45); ABG PH 7.28 (7.35-7.45); ABG PO2 67 mmHg (83-108); ABG TCO2 26 mmol/L (19-24); Allen Test Performed? Yes
--- NOTE | 2019-02-09 11:59 | CC ---
CARDIAC CATHETERIZATION REPORT Mr. Saenz is a 68-year-old male with known history of peripheral vascular disease, hypertension, renal failure, who while in the hospital had cardiac arrest requiring CPR and intubation. His EKG showed ST-segment elevation inferiorly. The patient was evaluated by Dr. Cárdenas and subsequently underwent cardiac catheterization that revealed a totally occluded distal right coronary artery and heavily calcified vessels. In view of that, recommendation was made regarding angioplasty and stenting. DESCRIPTION OF THE PROCEDURE: A 6-Armenian FR4 guiding catheter in the system. After cannulating the right coronary ostium, a 0.014 balanced medium weight J-wire was advanced across the lesion and positioned distally. Then a 2.5 x 12 mm Trek balloon was advanced and multiple inflations were done. Following that, the balloon was removed and another 0.014 balanced medium weight J-wire was advanced in the PLV and an KUSHAL low-profile aspiration catheter was introduced and two runs were done with removal of thrombotic material. Following that, a 3.25 x 28 mm Xience Anai stent was deployed distally and postdilated at 16 atmospheres. Following that, the balloon was removed and a 2.5 x 12 mm balloon was introduced and then 2 inflations in the ostium of the PDA were done at maximum of 10 atmospheres. Following that, the balloon was removed and a 3.5 x 18 mm Xience Anai stent was deployed proximal to the first one and deployed and postdilated at 18 atmospheres. Following that, the balloon was advanced into the overlapping segment and one inflation at 18 atmospheres was done. Following that, and after appropriate wait, the balloon and the guidewire were withdrawn back in the guiding catheter. Images were obtained and repeated. Those images revealed stable successful stenting. At that point, the guiding catheter, the balloon and the guidewire were removed. The sheath was sutured in place. The patient was returned to his room in stable condition. Of note, the patient received Angiomax per protocol as well as oral loading dose of Brilinta. He had no arrhythmia and there was persistent ST-segment changes with minimal improvement. RESULTS: Successful stenting of a long segment of total occlusion of the distal right coronary artery with reduction of stenosis from 100% to 0%. There was an intracoronary thrombus noted at the takeoff of the PLV with a LUI-3 flow. RECOMMENDATIONS: Patient will be continued on aspirin, Brilinta, beta beatriz, and statin. He will be closely followed with a repeat echocardiogram to further assess his status and guide his treatment. The prognosis remains guarded. Duration of procedure: 44 minutes. MMMICHAELL / IJN: [id number] /
[2019-02-09] MEDS: NOREPINEPHRINE 4 MG in SODIUM CHLORIDE 0.9% 250 ML IV SCH (12:29)
--- NOTE | 2019-02-09 12:29 | LTR ---
DATE OF SERVICE: 02/09/[address] Granger: I had the pleasure of performing coronary angioplasty and stenting on Mr. Saenz at [facility] on February 09 and a full copy of procedure note will be forwarded to you. In brief, he was found to have an acutely occluded distal right coronary artery with large amount of thrombus, underwent successful stenting of that vessel. I am hopeful that this procedure will stabilize his status. Thank you again for allowing me to participate in his care. Please feel free to call with any questions. Sincerely, NEAL / GABON: [id number] /
[2019-02-09] MEDS: PROPOFOL 1,000 MG in EMPTY BAG 1 BAG IV SCH ×2 (12:34→17:11)
[2019-02-09] MEDS: SODIUM CHLORIDE 0.9% 1,000 ML IV SCH (12:35)
[2019-02-09 13:31] LABS: ABG Base Excess -0.7 mmol/L; ABG HCO3 25 mmol/L (21-25); ABG Oxygen Saturation 99.1 % (94-97); ABG PCO2 45 mmHg (35-45); ABG PH 7.35 (7.35-7.45); ABG PO2 156 mmHg (83-108); ABG TCO2 26 mmol/L (19-24); Allen Test Performed? Yes
[2019-02-09] MEDS: FLUoxetine HCL 20 MG CAP PO SCH (15:10)
[2019-02-09] MEDS: GABAPENTIN 100 MG CAP PO SCH ×3 (15:10→21:21)
[2019-02-09] MEDS: PANTOPRAZOLE 40 MG TABLET PO SCH (15:10)
[2019-02-09] MEDS: SODIUM BICARBONATE TAB 650 MG TAB PO SCH ×2 (15:11→21:21)
[2019-02-09 15:21] LABS: ABG Base Excess -0.8 mmol/L; ABG HCO3 24 mmol/L (21-25); ABG PCO2 42 mmHg (35-45); ABG PH 7.38 (7.35-7.45); ABG PO2 129 mmHg (83-108); ABG TCO2 26 mmol/L (19-24); Allen Test Performed? Yes
[2019-02-09] MEDS ORDERED: INSULIN REGULAR BOLUS (FROM DRIP BAG) IV PRN (18:01)
[2019-02-09] MEDS: INSULIN REGULAR 100 UNIT in SODIUM CHLORIDE 0.9% 100 ML IV SCH (19:02)
[2019-02-09 19:11] LABS: Glucose,Whole Blood 484 mg/dL (75-99)
[2019-02-09 20:04] LABS: Glucose,Whole Blood 399 mg/dL (75-99)
[2019-02-09 20:22] LABS: Albumin 1.6 g/dL (3.5-5.0); Total Bilirubin 0.3 mg/dL (0.2-1.3)
[2019-02-09 20:25] LABS: Calcium 4.9 mg/dL (8.4-10.2); Potassium 2.3 mmol/L (3.5-5.1)
[2019-02-09] MEDS: POTASSIUM BICARBONATE/CIT AC 20 MEQ TABLET.EFF NG-TUBE SCH ×3 (21:08→22:59)
[2019-02-09] MEDS: CALCIUM GLUCONATE 2 GM in SODIUM CHLORIDE 0.9% 100 ML IVPB SCH ×3 (21:08→23:10)
[2019-02-09] MEDS: LATANOPROST 0.005% OPHTH DROPS 2.5 ML BTL LEFT EYE SCH (21:19)
[2019-02-09] MEDS: METOPROLOL TARTRATE 25 MG TAB PO SCH (21:20)
[2019-02-09] MEDS: TICAGRELOR 90 MG TAB PO SCH (21:21)
[2019-02-09 21:27] LABS: Glucose,Whole Blood 407 mg/dL (75-99)
[2019-02-09 22:17] LABS: Glucose,Whole Blood 374 mg/dL (75-99)
[2019-02-09 23:21] LABS: Glucose,Whole Blood 323 mg/dL (75-99)
[2019-02-10] MEDS: POTASSIUM BICARBONATE/CIT AC 20 MEQ TABLET.EFF NG-TUBE SCH ×2 (00:12→01:01)
[2019-02-10 00:20] LABS: Glucose,Whole Blood 287 mg/dL (75-99)
[2019-02-10] MEDS: IPRATROPIUM-ALBUTEROL 3 ML NEB INHALATION SCH ×7 (01:01→23:27)
[2019-02-10 01:17] LABS: Glucose,Whole Blood 237 mg/dL (75-99)
[2019-02-10 02:15] LABS: Glucose,Whole Blood 230 mg/dL (75-99)
[2019-02-10 03:21] LABS: Glucose,Whole Blood 220 mg/dL (75-99)
[2019-02-10 03:31] LABS: Calcium 8.8 mg/dL (8.4-10.2)
[2019-02-10 03:47] LABS: Potassium 4.6 mmol/L (3.5-5.1)
[2019-02-10] MEDS: PROPOFOL 1,000 MG in EMPTY BAG 1 BAG IV SCH ×3 (04:21→21:43)
[2019-02-10 04:22] LABS: Basophils # (A) 0.2 k/uL (0-0.2); Basophils % (A) 1 %; Eosinophils % (A) 0 %; HGB 9.3 gm/dL (13.0-17.5); Lymphocytes # (A) 1.7 k/uL (1.0-4.8); Lymphocytes % (A) 10 %; MCH 29.7 pg (25.0-35.0); MCHC 33.1 g/dL (31.0-37.0); MCV 89.8 fL (80.0-100.0); Mean Platelet Volume 10.6; Monocytes # (A) 1.4 k/uL (0-1.0); Monocytes % (A) 8 %; Neutrophils # (A) 13.6 k/uL (1.3-7.7); Neutrophils % (A) 80 %; Platelet Count 272 k/uL (150-450); Poikilocytosis Slight; RBC 3.11 m/uL (4.30-5.90); RDW 15.1 % (11.5-15.5); WBC 17.1 k/uL (3.8-10.6)
[2019-02-10 04:37] LABS: Glucose,Whole Blood 223 mg/dL (75-99)
[2019-02-10] MEDS: INSULIN REGULAR 100 UNIT in SODIUM CHLORIDE 0.9% 100 ML IV SCH (05:16)
[2019-02-10] MEDS: EPINEPHrine 4 MG in DEXTROSE 5% IN WATER 250 ML IV SCH ×6 (05:17→22:08)
[2019-02-10 05:42] LABS: ABG Base Excess 6.6 mmol/L; ABG HCO3 29 mmol/L (21-25); ABG Oxygen Saturation 98.9 % (94-97); ABG PCO2 31 mmHg (35-45); ABG PO2 348 mmHg (83-108); ABG TCO2 30 mmol/L (19-24); Allen Test Performed? Yes
[2019-02-10 05:44] LABS: ABG PH 7.58 (7.35-7.45)
[2019-02-10 05:45] LABS: Glucose,Whole Blood 224 mg/dL (75-99)
[2019-02-10 06:26] LABS: Glucose,Whole Blood 220 mg/dL (75-99)
[2019-02-10] MEDS: NOREPINEPHRINE 4 MG in SODIUM CHLORIDE 0.9% 250 ML IV SCH ×2 (06:49→12:03)
[2019-02-10] MEDS: CALCIUM ACETATE 667 MG TAB PO SCH ×3 (06:49→18:09)
[2019-02-10] MEDS: SODIUM CHLORIDE 0.9% 1,000 ML IV SCH (06:49)
[2019-02-10 07:13] LABS: Glucose,Whole Blood 195 mg/dL (75-99)
--- NOTE | 2019-02-10 08:09 | XR ---
EXAMINATION TYPE: XR chest 1V portable DATE OF EXAM: 02/10/2019 COMPARISON: Prior chest x-ray 02/09/2019 HISTORY: Intubated TECHNIQUE: Single frontal view of the chest is obtained. FINDINGS: Right-sided jugular central venous dialysis catheter, left subclavian central venous mae ter are overlying the cavoatrial junction levels, the endotracheal tube and NG tube are overlying jacey ropriate positions. No evident pneumothorax. Bibasilar increased attenuation shows a similar appearan ce, lung volumes are somewhat improved. Heart is likely enlarged, patient rotated. IMPRESSION: Improvement in lung volume, aeration.
[2019-02-10] MEDS: METOPROLOL TARTRATE 25 MG TAB PO SCH ×2 (08:51→21:02)
[2019-02-10] MEDS: SODIUM BICARBONATE TAB 650 MG TAB PO SCH ×2 (08:51→21:02)
[2019-02-10] MEDS: PANTOPRAZOLE 40 MG TABLET PO SCH (08:51)
[2019-02-10] MEDS: GABAPENTIN 100 MG CAP PO SCH ×3 (08:51→21:02)
[2019-02-10] MEDS: ATORVASTATIN 80 MG TAB PO SCH (08:51)
[2019-02-10] MEDS: TICAGRELOR 90 MG TAB PO SCH ×2 (08:51→21:02)
[2019-02-10] MEDS: ASPIRIN 81 MG PO SCH (08:51)
[2019-02-10] MEDS: FLUoxetine HCL 20 MG CAP PO SCH (08:51)
[2019-02-10] MEDS: CHLORHEXIDINE GLUCONATE 15 ML CUP MUCOUS MEM SCH ×2 (08:51→20:59)
[2019-02-10] MEDS: DORZOLAMIDE HCL 2% DROPS 10 ML BTL LEFT EYE SCH ×3 (08:52→21:19)
[2019-02-10] MEDS: BRIMONIDINE TARTRATE 0.2% DROPS 5 ML BTL LEFT EYE SCH ×3 (08:52→21:19)
[2019-02-10] MEDS: TIMOLOL 0.5% OPHTH DROPS 5 ML BTL LEFT EYE SCH ×2 (08:52→21:04)
--- NOTE | 2019-02-10 09:19 | P.PN ---
Subjective Progress Note Date: 02/10/19 Principal diagnosis: Cardiac arrest, acute inferior wall ME, status post stent placement This is 68-year-old gentleman was wasn't admitted to the hospital with ischemic toes and had surgery done. Yesterday patient had a cardiac arrest requiring resuscitation and multiple times. His EKG also showed evidence of inferior wall ME. Patient had a cardiac catheterization and stent placement of the RCA. Patient is still intubated. It appears that patient doesn't follow any comma nds. One of the people's is sluggishly reactive. Patient doesn't have any urine output. He is on dialysis. Hemodynamically patient is still on IV epinephrine at 10 mics. Attempts to wean off epinephrine results in hypotension. Is in sinus rhythm with rate of 80. Patient is getting aspirin, Brillinta and also Lipitor. Metoprolol is being held because of hypotension. Echo is going to be repeated. Prognosis guarded at this time. Patient may need a neurology evaluation Objective - Vital Signs Vital signs: Vital Signs Temp 100.2 F H 02/10/19 04:45 Pulse 79 02/10/19 07:39 Resp 20 02/10/19 07:00 BP 111/67 02/10/19 06:00 Pulse Ox 98 02/10/19 07:00 Intake & Output 02/09/19 02/10/19 02/10/19 18:59 06:59 18:59 Intake Total 3013.897 1480.376 59.174 Output Total 4000 196 0 Balance -703.645 6103.376 59.174 Weight 103.1 kg Intake: IV 2685 130 0.9 NACL bolus 1000 D5W 3 amp Hco3 1050 Sodium Chloride 0.9% 1, 300 130 000 ml @ 20 mls/hr IV . Q24H [facility] Rx#:[id number] Intake, IV Titration 696.834 0569.376 59.174 Amount Bivalirudin 250 mg In 50 Sodium Chloride 0.9% 50 ml @ 0 mls/hr IV .[facility] Rx#:[id number] Calcium Gluconate 2 gm In 300 Sodium Chloride 0.9% 100 ml @ 100 mls/hr IVPB Q1H [facility] Rx#:[id number] EPINEPHrine 4 mg In 302.166 451.201 Dextrose 5% in Water 250 ml @ 0.01 MCG/KG/MIN 3. 619 mls/hr IV .Q24H [facility] Rx#:[id number] Insulin Regular 100 unit 74.520 9.174 In Sodium Chloride 0.9% 100 ml @ Per Protocol IV .Q0M [facility] Rx#:[id number] Propofol 1,000 mg In 26.731 64.655 Empty Bag 1 bag @ Titrate IV .Q0M [facility] Rx#: [id number] Sodium Chloride 0.9% 1, 300 50 000 ml @ 50 mls/hr IV . Q20H [facility] Rx#:[id number] Oral 110 Output: Gastric Drainage 150 Urine 46 0 Hemodialysis 4000 Other: Voiding Method Indwelling Catheter Indwelling Catheter ABP, PAP, CO, CI - Last Documented Arterial Blood Pressure 131/50 - Exam Patient is intubated and sedated. Hemodynamically maintaining his blood pressure with IV epinephrine. In sinus rhythm. His potassium is normal patient may need dialysis. Neurology consult may be requested. From Cardec standpoint we'll continue current medical therapy except holding metoprolol. - Labs CBC & Chem 7: 02/10/19 04:10 02/10/19 03:00 Labs: Abnormal Lab Results - Last 24 Hours (Table) 02/09/19 02/09/19 02/09/19 Range/Units 09:13 11:49 11:52 WBC (3.8-10.6) k/uL RBC (4.30-5.90) m/uL Hgb (13.0-17.5) gm/dL Hct (39.0-53.0) % Neutrophils # (1.3-7.7) k/uL Monocytes # (0-1.0) k/uL ABG pH 7.33 L 7.28 L (7.35-7.45) ABG pCO2 50 H 53 H (35-45) mmHg ABG pO2 67 L (83-108) mmHg ABG HCO3 26 H (21-25) mmol/L ABG Total CO2 28 H 26 H (19-24) mmol/L ABG O2 Saturation 91.3 L (94-97) % Sodium (137-145) mmol/L Potassium (3.5-5.1) mmol/L Chloride (98-107) mmol/L Carbon Dioxide (22-30) mmol/L BUN (9-20) mg/dL Creatinine (0.66-1.25) mg/dL Glucose (74-99) mg/dL POC Glucose (mg/dL) (75-99) mg/dL Plasma Lactic Acid Jose Carlos 6.0 H* (0.7-2.0) mmol/L Calcium (8.4-10.2) mg/dL AST (17-59) U/L ALT (4-49) U/L Troponin I (0.000-0.034) ng/mL Total Protein (6.3-8.2) g/dL Albumin (3.5-5.0) g/dL 02/09/19 02/09/19 02/09/19 Range/Units 13:22 15:19 15:30 WBC (3.8-10.6) k/uL RBC (4.30-5.90) m/uL Hgb (13.0-17.5) gm/dL Hct (39.0-53.0) % Neutrophils # (1.3-7.7) k/uL Monocytes # (0-1.0) k/uL ABG pH (7.35-7.45) ABG pCO2 (35-45) mmHg ABG pO2 156 H 129 H (83-108) mmHg ABG HCO3 (21-25) mmol/L ABG Total CO2 26 H 26 H (19-24) mmol/L ABG O2 Saturation 99.1 H 99.0 H (94-97) % Sodium (137-145) mmol/L Potassium (3.5-5.1) mmol/L Chloride (98-107) mmol/L Carbon Dioxide (22-30) mmol/L BUN (9-20) mg/dL Creatinine (0.66-1.25) mg/dL Glucose (74-99) mg/dL POC Glucose (mg/dL) (75-99) mg/dL Plasma Lactic Acid Jose Carlos (0.7-2.0) mmol/L Calcium (8.4-10.2) mg/dL AST (17-59) U/L ALT (4-49) U/L Troponin I 25.000 H* (0.000-0.034) ng/mL Total Protein (6.3-8.2) g/dL Albumin (3.5-5.0) g/dL 02/09/19 02/09/19 02/09/19 Range/Units 15:30 19:00 19:53 WBC (3.8-10.6) k/uL RBC (4.30-5.90) m/uL Hgb (13.0-17.5) gm/dL Hct (39.0-53.0) % Neutrophils # (1.3-7.7) k/uL Monocytes # (0-1.0) k/uL ABG pH (7.35-7.45) ABG pCO2 (35-45) mmHg ABG pO2 (83-108) mmHg ABG HCO3 (21-25) mmol/L ABG Total CO2 (19-24) mmol/L ABG O2 Saturation (94-97) % Sodium (137-145) mmol/L Potassium (3.5-5.1) mmol/L Chloride (98-107) mmol/L Carbon Dioxide (22-30) mmol/L BUN (9-20) mg/dL Creatinine (0.66-1.25) mg/dL Glucose (74-99) mg/dL POC Glucose (mg/dL) 484 H 399 H (75-99) mg/dL Plasma Lactic Acid Jose Carlos 5.1 H* (0.7-2.0) mmol/L Calcium (8.4-10.2) mg/dL AST (17-59) U/L ALT (4-49) U/L Troponin I (0.000-0.034) ng/mL Total Protein (6.3-8.2) g/dL Albumin (3.5-5.0) g/dL 02/09/19 02/09/19 02/09/19 Range/Units 19:55 19:55 19:55 WBC (3.8-10.6) k/uL RBC (4.30-5.90) m/uL Hgb (13.0-17.5) gm/dL Hct (39.0-53.0) % Neutrophils # (1.3-7.7) k/uL Monocytes # (0-1.0) k/uL ABG pH (7.35-7.45) ABG pCO2 (35-45) mmHg ABG pO2 (83-108) mmHg ABG HCO3 (21-25) mmol/L ABG Total CO2 (19-24) mmol/L ABG O2 Saturation (94-97) % Sodium 147 H (137-145) mmol/L Potassium 2.3 L* (3.5-5.1) mmol/L Chloride 119 H (98-107) mmol/L Carbon Dioxide 19 L (22-30) mmol/L BUN 36 H (9-20) mg/dL Creatinine 3.26 H (0.66-1.25) mg/dL Glucose 330 H (74-99) mg/dL POC Glucose (mg/dL) (75-99) mg/dL Plasma Lactic Acid Jose Carlos 4.5 H* (0.7-2.0) mmol/L Calcium 4.9 L* (8.4-10.2) mg/dL AST 147 H (17-59) U/L ALT 53 H (4-49) U/L Troponin I 41.000 H* (0.000-0.034) ng/mL Total Protein 4.0 L (6.3-8.2) g/dL Albumin 1.6 L (3.5-5.0) g/dL 02/09/19 02/09/19 02/09/19 Range/Units 21:16 22:05 23:08 WBC (3.8-10.6) k/uL RBC (4.30-5.90) m/uL Hgb (13.0-17.5) gm/dL Hct (39.0-53.0) % Neutrophils # (1.3-7.7) k/uL Monocytes # (0-1.0) k/uL ABG pH (7.35-7.45) ABG pCO2 (35-45) mmHg ABG pO2 (83-108) mmHg ABG HCO3 (21-25) mmol/L ABG Total CO2 (19-24) mmol/L ABG O2 Saturation (94-97) % Sodium (137-145) mmol/L Potassium (3.5-5.1) mmol/L Chloride (98-107) mmol/L Carbon Dioxide (22-30) mmol/L BUN (9-20) mg/dL Creatinine (0.66-1.25) mg/dL Glucose (74-99) mg/dL POC Glucose (mg/dL) 407 H 374 H 323 H (75-99) mg/dL Plasma Lactic Acid Jose Carlos (0.7-2.0) mmol/L Calcium (8.4-10.2) mg/dL AST (17-59) U/L ALT (4-49) U/L Troponin I (0.000-0.034) ng/mL Total Protein (6.3-8.2) g/dL Albumin (3.5-5.0) g/dL 02/10/19 02/10/19 02/10/19 Range/Units 00:08 00:10 01:06 WBC (3.8-10.6) k/uL RBC (4.30-5.90) m/uL Hgb (13.0-17.5) gm/dL Hct (39.0-53.0) % Neutrophils # (1.3-7.7) k/uL Monocytes # (0-1.0) k/uL ABG pH (7.35-7.45) ABG pCO2 (35-45) mmHg ABG pO2 (83-108) mmHg ABG HCO3 (21-25) mmol/L ABG Total CO2 (19-24) mmol/L ABG O2 Saturation (94-97) % Sodium (137-145) mmol/L Potassium (3.5-5.1) mmol/L Chloride (98-107) mmol/L Carbon Dioxide (22-30) mmol/L BUN (9-20) mg/dL Creatinine (0.66-1.25) mg/dL Glucose (74-99) mg/dL POC Glucose (mg/dL) 287 H 237 H (75-99) mg/dL Plasma Lactic Acid Jose Carlos 5.7 H* (0.7-2.0) mmol/L Calcium (8.4-10.2) mg/dL AST (17-59) U/L ALT (4-49) U/L Troponin I (0.000-0.034) ng/mL Total Protein (6.3-8.2) g/dL Albumin (3.5-5.0) g/dL 02/10/19 02/10/19 02/10/19 Range/Units 02:05 03:00 03:03 WBC (3.8-10.6) k/uL RBC (4.30-5.90) m/uL Hgb (13.0-17.5) gm/dL Hct (39.0-53.0) % Neutrophils # (1.3-7.7) k/uL Monocytes # (0-1.0) k/uL ABG pH (7.35-7.45) ABG pCO2 (35-45) mmHg ABG pO2 (83-108) mmHg ABG HCO3 (21-25) mmol/L ABG Total CO2 (19-24) mmol/L ABG O2 Saturation (94-97) % Sodium (137-145) mmol/L Potassium (3.5-5.1) mmol/L Chloride (98-107) mmol/L Carbon Dioxide (22-30) mmol/L BUN 54 H (9-20) mg/dL Creatinine 5.47 H (0.66-1.25) mg/dL Glucose 212 H (74-99) mg/dL POC Glucose (mg/dL) 230 H 220 H (75-99) mg/dL Plasma Lactic Acid Jose Carlos (0.7-2.0) mmol/L Calcium (8.4-10.2) mg/dL AST (17-59) U/L ALT (4-49) U/L Troponin I (0.000-0.034) ng/mL Total Protein (6.3-8.2) g/dL Albumin (3.5-5.0) g/dL 02/10/19 02/10/19 02/10/19 Range/Units 04:10 04:10 04:15 WBC 17.1 H (3.8-10.6) k/uL RBC 3.11 L (4.30-5.90) m/uL Hgb 9.3 L (13.0-17.5) gm/dL Hct 28.0 L (39.0-53.0) % Neutrophils # 13.6 H (1.3-7.7) k/uL Monocytes # 1.4 H (0-1.0) k/uL ABG pH (7.35-7.45) ABG pCO2 (35-45) mmHg ABG pO2 (83-108) mmHg ABG HCO3 (21-25) mmol/L ABG Total CO2 (19-24) mmol/L ABG O2 Saturation (94-97) % Sodium (137-145) mmol/L Potassium (3.5-5.1) mmol/L Chloride (98-107) mmol/L Carbon Dioxide (22-30) mmol/L BUN (9-20) mg/dL Creatinine (0.66-1.25) mg/dL Glucose (74-99) mg/dL POC Glucose (mg/dL) 223 H (75-99) mg/dL Plasma Lactic Acid Jose Carlos 3.9 H* (0.7-2.0) mmol/L Calcium (8.4-10.2) mg/dL AST (17-59) U/L ALT (4-49) U/L Troponin I (0.000-0.034) ng/mL Total Protein (6.3-8.2) g/dL Albumin (3.5-5.0) g/dL 02/10/19 02/10/19 02/10/19 Range/Units 05:14 05:38 06:04 WBC (3.8-10.6) k/uL RBC (4.30-5.90) m/uL Hgb (13.0-17.5) gm/dL Hct (39.0-53.0) % Neutrophils # (1.3-7.7) k/uL Monocytes # (0-1.0) k/uL ABG pH 7.58 H* (7.35-7.45) ABG pCO2 31 L (35-45) mmHg ABG pO2 348 H (83-108) mmHg ABG HCO3 29 H (21-25) mmol/L ABG Total CO2 30 H (19-24) mmol/L ABG O2 Saturation 98.9 H (94-97) % Sodium (137-145) mmol/L Potassium (3.5-5.1) mmol/L Chloride (98-107) mmol/L Carbon Dioxide (22-30) mmol/L BUN (9-20) mg/dL Creatinine (0.66-1.25) mg/dL Glucose (74-99) mg/dL POC Glucose (mg/dL) 224 H 220 H (75-99) mg/dL Plasma Lactic Acid Jose Carlos (0.7-2.0) mmol/L Calcium (8.4-10.2) mg/dL AST (17-59) U/L ALT (4-49) U/L Troponin I (0.000-0.034) ng/mL Total Protein (6.3-8.2) g/dL Albumin (3.5-5.0) g/dL 02/10/19 Range/Units 07:02 WBC (3.8-10.6) k/uL RBC (4.30-5.90) m/uL Hgb (13.0-17.5) gm/dL Hct (39.0-53.0) % Neutrophils # (1.3-7.7) k/uL Monocytes # (0-1.0) k/uL ABG pH (7.35-7.45) ABG pCO2 (35-45) mmHg ABG pO2 (83-108) mmHg ABG HCO3 (21-25) mmol/L ABG Total CO2 (19-24) mmol/L ABG O2 Saturation (94-97) % Sodium (137-145) mmol/L Potassium (3.5-5.1) mmol/L Chloride (98-107) mmol/L Carbon Dioxide (22-30) mmol/L BUN (9-20) mg/dL Creatinine (0.66-1.25) mg/dL Glucose (74-99) mg/dL POC Glucose (mg/dL) 195 H (75-99) mg/dL Plasma Lactic Acid Jose Carlos (0.7-2.0) mmol/L Calcium (8.4-10.2) mg/dL AST (17-59) U/L ALT (4-49) U/L Troponin I (0.000-0.034) ng/mL Total Protein (6.3-8.2) g/dL Albumin (3.5-5.0) g/dL
[2019-02-10 09:26] LABS: Glucose,Whole Blood 174 mg/dL (75-99)
--- NOTE | 2019-02-10 10:48 | ECHOF ---
Referral Reason:mi MEASUREMENTS -------- HEIGHT: 162.6 cm WEIGHT: 96.2 kg BP: RVIDd: 3.8 cm (< 3.3) IVSd: 1.4 cm (0.6 - 1.1) LVIDd: 3.8 cm (3.9 - 5.3) LVPWd: 1.2 cm (0.6 - 1.1) IVSs: 1.5 cm LVIDs: 3.9 cm LVPWs: 1.3 cm MV E Casimiro: 0.60 m/s MV DecT: 220 ms MV A Casimiro: 0.85 m/s MV E/A Ratio: 0.71 RAP: 5.00 mmHg RVSP: 9.86 mmHg FINDINGS -------- Sinus rhythm with extra systolic beats. Morbid Obesity This was a techncally difficult study with suboptimal views, , Lumason utilized for enhancement of images. The left ventricular size is normal. There is mild concentric left ventricular hypertrophy. Overa ll left ventricular systolic function is moderately impaired with, an EF between 35 - 40 %. Basal l ateral LV wall motion is hypokinetic. Basal inferior LV wall motion is hypokinetic. Mid lateral LV wall motion is hypokinetic. Mid inferior LV wall motion is hypokinetic. Apical inferior LV wall motion is hypokinetic. The right ventricle is mild to moderately enlarged. The left atrial size is normal. The right atrial size is normal. 5.0mg OF Lumason UTLIZED: 2 OR MORE WALL SEGMENTS NOT VISUALIZED. There is mild aortic valve sclerosis. There is no evidence of aortic regurgitation. Mild mitral annular calcification present. Mild mitral regurgitation is present. Mild tricuspid regurgitation present. Right ventricular systolic pressure is normal at < 35 mmHg. There is no evidence of pulmonary hypertension. The pulmonic valve was not well visualized. There is no pericardial effusion. CONCLUSIONS -------- 1. Sinus rhythm with extra systolic beats. 2. Morbid Obesity 3. This was a techncally difficult study with suboptimal views, , Lumason utilized for enhancement of images. 4. The left ventricular size is normal. 5. There is mild concentric left ventricular hypertrophy. 6. Overall left ventricular systolic function is moderately impaired with, an EF between 35 - 40 %. 7. Basal lateral LV wall motion is hypokinetic. 8. Basal inferior LV wall motion is hypokinetic. 9. Mid lateral LV wall motion is hypokinetic. 10. Mid inferior LV wall motion is hypokinetic. 11. Apical inferior LV wall motion is hypokinetic. 12. The right ventricle is mild to moderately enlarged. 13. The left atrial size is normal. 14. 5.0mg OF Lumason UTLIZED: 2 OR MORE WALL SEGMENTS NOT VISUALIZED. 15. There is mild aortic valve sclerosis. 16. Mild mitral regurgitation is present. 17. Mild tricuspid regurgitation present. 18. Right ventricular systolic pressure is normal at < 35 mmHg. 19. The pulmonic valve was not well visualized. 20. There is no pericardial effusion. [employer]ARK BIOLOGIST: Odette Chaparro RDCS
[2019-02-10 10:49] LABS: Glucose,Whole Blood 137 mg/dL (75-99)
--- NOTE | 2019-02-10 10:58 | P.PN ---
Subjective Progress Note Date: 02/10/19 Refugio Saenz, is a 68-year-old male who presented to [facility] emergency room with pain in the right foot, he was evaluated in emergency room and had blackish discoloration of the right fifth toe with surrounding erythema and tenderness, patient was started on IV antibiotics Zosyn, vancomycin, and clindamycin, he was admitted to medical floor vascular surgery consultation was requested for possible amputation due to evidence of gangrene. Infectious disease consultation was requested. Patient has a known history of insulin-dependent diabetes mellitus, his glucose level was well controlled up until September of this year his A1c in June was 7.1 and in September was 7.3 however apparently patient stopped taking his insulin and his medications and his A1c was up to 9.8 in November, he has a known history of right foot ulcer he was admitted to the hospital with right foot cellulitis and ulcer in 2014 and he was followed at the wound care clinic in 2015 however he was doing well up until recently. Patient also has a known history of hypertension, hyperlipidemia, he denies any history of coronary artery disease or congestive heart failure, he had an echocardiogram done in 2014 at that time he had normal left ventricular function was normal ejection fraction, no significant valvular disease and no pulmonary hypertension. 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 On 01/17/2019 patient's alert and oriented 3. Patient had fourth and fifth toe amputation with Dr. Edward this morning. Patient having some low blood pressure will give 500 mL bolus. Patient denies chest pain or shortness of breath. Patient denies nausea vomiting or diarrhea. Patient is having some increased pain to foot area pain medications ordered 01/18/2019, patient seen eval examined while covering for Dr. Granger, waking up this morning slightly slow to respond but not confused, breathing comfortably denies any chest pain labs reviewed today patient has been evaluated by Dr. Bassett, white cell count is coming down to 19,000, lactic acid level is normalized, patient has been on broad-spectrum antibiotics with vascular surgery on board 01/19/2019, patient seen and evaluated examined in the ICU intubated on full ventilator support, patient had gradual loss of consciousness has been more lethargic arterial blood gases were checked shows hypercapnic and hypoxic respiratory failure was intubated in the ICU, patient has been placed on propof ol he was volume depleted depleted aggressive fluid resuscitation were performed, is still requiring levophed intermittently, patient was also noted to be hypoglycemic 7030 insulin and other oral hypoglycemic agents were discontinued, ultrasound of the abdomen has been performed which is reviewed no obvious hydronephrosis seen, patient has decreased urine output along with rising BUN/creatinine appeared to be acute tubular necrosis, patient also requiring intermittent bolus of D10 for hypoglycemia, wounds has been evaluated by vascular surgery noted recommendation, patient has very poor venous access, will put a central line in, critical care time 45 minutes during procedure, due to altered mental status CT of the head was performed which was negative On 01/20/2019 patient remains in the intensive care unit on mechanical ventilation. Levophed has been on hold blood pressures has sustained. Creatinine has increased to 4.17 and bun 56. Nephrology services are following. Per nursing staff patient does follow commands during sedation holiday ABGs have improved. Discussed case with vascular surgeon nurse practitioner possible BKA discussion. White blood cell decreasing to 16.0. Critical care services are following. Patient remains on Zosyn for IV antibiotics. Infectious disease following 01/21/2019 patient remains on mechanical ventilation on in the intensive care unit. Patient remains sedated, on propofol. However per nursing staff patient does follow commands during sedation holiday. Patient is on 50% FiO2, 5 PEEP, tidal volume 500. Levophed off since 01/20/20. Blood pressure remains in the 130's-150's systolic. Creatinine 4.35 from 4.17 and BUN 57 from 56, Calcium 7.0, phosphorus 5.9 Nephrology is following. Orogastric tube replaced this morning. Per nursing staff OG tube was coiled in patient's mouth with tube feeds running. Chest x-ray repeated, no significant change from previous. ABG improving, still metabolic acidosis. WBC of 14.1 down from 16. Afebrile. Infectious disease is following patient is maintained on Zosyn. Will send C. diff sample due to new onset diarrhea for 1 day. Hyperglycemia noted (glucose 200's). Will discuss tube feed formula with dietary. If no changes can be made will adjust sliding scale. On 01/22/2019 patient remains sedated on mechanical ventilation in the intensive care unit. Per nursing staff patient is to have a BKA today with Dr. Edward. Patient remains off pressors, blood pressure has been stable. Chest x-ray repeated this morning, per pulmonary. No significant change in ABGs. Creatinine continues to increase, 4.84 today BUN 60, patient is still making adequate urine output nephrology is following. Tube feeds on hold, for pending OR. WBC 14.2, temperature overnight 100F. Please is following patient is maintained on Zosyn. C. diff sample was negative. 01/23/2019 patient remains sedated and on mechanical ventilation in the ICU. He underwent right BKA yesterday, 01/22/[address] Edward. Estimated blood loss 150 mL. He had a temp of 100 last night. Urine output is about 50 mL per hour. Creatinine has gone down from 4.84-4.82. Nephrology is following closely. No plans for hemodialysis yet. Patient's blood sugars are starting to become more elevated. They're in the 180s to 200s. Tube feedings are being adjusted. White count 13.7 hemoglobin 10.3 On 01/24/2019 patient remains sedated on mechanical ventilation in the intensive care unit. Decreased urine output throughout night. Creatinine 5.15 and bun 68. Patient remains on insulin drip. WBC 14.1. Patient having low-grade temps. Patient remains closely followed by critical care consulting providers On 01/25/2019 patient was seen and examined in the intensive care unit, he is currently alert and maintained on BiPAP trial, he is making more urine output, and no hemodialysis is scheduled at this time, creatinine improved, down from 5.15-4.44 white blood count down to 11.3 patient is followed by nephrology, infectious disease, pulmonary and critical care and vascular surgery On 01/26/2019 patient was seen and examined in the ICU, he is intubated sedated maintained on mechanical ventilation, creatinine went up today and he was started on hemodialysis, Zosyn has today, at this time will resume Zosyn, we have asked infectious disease to see patient and reassess antibiotics, otherwise patient is stable there is no fever or chills, he continues to have a rectal tube and having large amount of diarrhea, C. diff was checked and was negative will repeat test today. On 01/27/2019 patient remains on mechanical ventilation in the intensive care unit. Creatinine trending down today 4.76 and bun 77. Patient remains on Lasix drip per nephrology services. White count 11.8. She remains on IV Zosyn. Sedation holiday performed per nursing staff and critical care recommendation. On 01/28/2019 patient remains in the intensive care unit on mechanical ventilation. Sedation currently turned off. Patient is awake and following commands possible extubation today per critical care. Patient also received hemodialysis this will be the patient's third round of hemodialysis. Creatinine is trending down 4.44. Patient remains on Lasix drip. On 01/29/2019 patient remains in ICU intubated sedated maintained on mechanical ventilation, he had to CPAP trials yesterday, he is still maintained on hemodialysis, creatinine is elevated at 4.8 and BUN 89. On 01/30/2019 patient remains on mechanical ventilation in the intensive care unit. Patient is off sedation at this time and following commands. CPAP trial in place. Possible extubation today. Patient currently getting hemodialysis. Permanent hemodialysis catheter placed yesterday. Creatinine is trending down. Patient taken off insulin drip. on 01/31/2019 patient remains in intensive care unit on mechanical ventilation. Discussed case with critical care doctor Dr. Dominguez Yesterday. Patient unable to wean. we'll continue to monitor patient over the weekend and consider possible trach next week. Patient also received hemodialysis yesterday. On 02/01/2019 patient was seen and examined in the ICU he is intubated and maegan ntained on mechanical ventilation sedation is being stopped now for CPAP trial on 02/02/2019 patient was seen and examined in the ICU he has been extubated since yesterday, he is tolerating well maintained on oxygen via nasal cannula, he seems somnolent however he is opening his eyes and answering questions by nodding his head and trying to speak, there is no fever or chills no headache or dizziness no chest pain no shortness of breath he has occasional cough no nausea or vomiting no abdominal pain. on 02/03/2019 patient is currently sitting up in chair on nasal cannula. Patient does wake up and follow commands. Per nursing staff antibiotics due to ID is following per nursing will get a hold of infectious disease to further evaluate need for antibiotics. at this time patient denies chest pain or shortness of breath. Patient denies nausea vomiting or diarrhea. Patient denies any urinary burning or frequency. patient to receive hemodialysis today remains on IV Lasix on 02/04/2019 patient is currently resting comfortably in bed. Patient is alert and oriented. Per nursing staff patient no longer needs antibiotics Dr. Bassett is following for infectious disease.patient received dialysis yesterday will receive hemodialysis again tomorrow maintained on IV Lasix. Elevated blood pressure. Hydralazine by mouth has been added. At this time patient denies chest pain or shortness of breath. Patient denies nausea vomiting or diarrhea. Patient denies any urinary burning or frequency. on 02/05/2019 patient is currently resting comfortably in chair. Per nursing staff patient had episode of increased lethargy last night requiring BiPAP and Narcan. per critical care and narcotics and benzos were DC'd at this time. Patient is now awake and alert 3. Patient able to follow commands and answer all questions. Patient denies any chest pain or shortness of breath. Patient denies nausea vomiting or diarrhea. Patient denies any urinary burning or frequency. 02/06/2019 patient is currently resting comfortably in bed.Patient did undergo hemodialysis yesterday. Lasix has been decreased per nephrology. Patient denies chest pain or shortness of breath. Patient denies vomiting or diarrhea. Patient denies any urinary burning or frequency. Working on discharge planning possible discharge to ECF next week. On 02/07/2019 patient has moved out of the intensive care unit to [facility] care. Patient currently getting hemodialysis. Discussed case with nephrology services planning to do dialysis today and hold off during the weekends assess patient renal function on Sunday. Also patient is planning to be discharged to ECF [place] now. This time patient denies chest pain. Patient denies nausea vomiting or diarrhea. Patient having some mild discomfort back will add Tylenol. Patient denies any urinary burning or frequency edward catheter remains in place. On 02/08/2019 patient was seen and examined on the telemetry floor he is alert responsive in no apparent distress he was more confused today, there is no fever or chills no headache or dizziness no chest pain no shortness of breath no cough no nausea or vomiting no abdominal pain no diarrhea no burning with urination no frequency or urgency and no hematuria. On 02/09/2019 patient had cardiac arrest this morning he was coded multiple times and was transferred to intensive care unit, he was seen by Dr. Bear who was covering for Dr. Dominguez, he was also seen by cardiology EKG revealed ST e levation in inferior leads patient was taken to the label designer for acute inferior wall [place]. On 02/10/2019 patient is currently in the intensive care unit on mechanical ventilation. Patient is status post cardiac arrest. Patient was taken to the cardiac Officer Captain and found to have been a percent occluded RCA. Patient did receive stent in currently on Brilinta. Patient is currently on mechanical ve ntilation with sedation and epinephrine drip. Currently receiving hemodialysis. Critical care services are following. Objective - Vital Signs Vital signs: Vital Signs Temp 99.4 F 02/10/19 08:00 Pulse 87 02/10/19 10:00 Resp 20 02/10/19 10:00 BP 111/67 02/10/19 06:00 Pulse Ox 96 02/10/19 10:00 Intake & Output 02/09/19 02/10/19 02/10/19 18:59 06:59 18:59 Intake Total 3013.897 1480.376 264.825 Output Total 4000 196 0 Balance -207.170 8922.376 264.825 Weight 103.1 kg Intake: IV 2685 130 50 0.9 NACL bolus 1000 D5W 3 amp Hco3 1050 Sodium Chloride 0.9% 1, 300 130 50 000 ml @ 20 mls/hr IV . Q24H [facility] Rx#:[id number] Intake, IV Titration 921.995 3020.376 214.825 Amount Bivalirudin 250 mg In 50 Sodium Chloride 0.9% 50 ml @ 0 mls/hr IV .[facility] Rx#:[id number] Calcium Gluconate 2 gm In 300 Sodium Chloride 0.9% 100 ml @ 100 mls/hr IVPB Q1H [place] Rx#:[id number] EPINEPHrine 4 mg In 302.166 451.201 142.79 Dextrose 5% in Water 250 ml @ 0.01 MCG/KG/MIN 3. 619 mls/hr IV .Q24H [place] Rx#:[id number] Insulin Regular 100 unit 74.520 22.035 In Sodium Chloride 0.9% 100 ml @ Per Protocol IV .Q0M [place] Rx#:[id number] Propofol 1,000 mg In 26.731 64.655 Empty Bag 1 bag @ Titrate IV .Q0M [place] Rx#: [id number] Sodium Chloride 0.9% 1, 300 50 000 ml @ 50 mls/hr IV . Q20H [place] Rx#:[id number] Oral 110 Output: Gastric Drainage 150 Urine 46 0 Hemodialysis 4000 Other: Voiding Method Indwelling Catheter Indwelling Catheter Indwelling Catheter ABP, PAP, CO, CI - Last Documented Arterial Blood Pressure 155/56 - Exam HEENT head normocephalic and atraumatic Neck is supple no JVD no goiter no lymphadenopathy Chest exam reveals diminished lung sounds, a few scattered rhonchi no wheezing Cardiac exam reveals regular heart sounds S1 and S2 no gallops no murmurs Abdomen is obese, soft nontender no organomegaly with normal bowel sounds Extremity right BKA. Dressing is clean dry and intact Neuro currently on mechanical ventilation and sedation unequal pupils left greater than right. Patient reports he had eye surgery previously unable to recall for what but does report this is chronic. No other neuro deficits noted - Labs CBC & Chem 7: 02/10/19 04:10 02/10/19 03:00 Labs: Abnormal Lab Results - Last 24 Hours (Table) 02/09/19 02/09/19 02/09/19 Range/Units 11:49 11:52 13:22 WBC (3.8-10.6) k/uL RBC (4.30-5.90) m/uL Hgb (13.0-17.5) gm/dL Hct (39.0-53.0) % Neutrophils # (1.3-7.7) k/uL Monocytes # (0-1.0) k/uL ABG pH 7.28 L (7.35-7.45) ABG pCO2 53 H (35-45) mmHg ABG pO2 67 L 156 H (83-108) mmHg ABG HCO3 (21-25) mmol/L ABG Total CO2 26 H 26 H (19-24) mmol/L ABG O2 Saturation 91.3 L 99.1 H (94-97) % Sodium (137-145) mmol/L Potassium (3.5-5.1) mmol/L Chloride (98-107) mmol/L Carbon Dioxide (22-30) mmol/L BUN (9-20) mg/dL Creatinine (0.66-1.25) mg/dL Glucose (74-99) mg/dL POC Glucose (mg/dL) (75-99) mg/dL Plasma Lactic Acid Jose Carlos 6.0 H* (0.7-2.0) mmol/L Calcium (8.4-10.2) mg/dL AST (17-59) U/L ALT (4-49) U/L Troponin I (0.000-0.034) ng/mL Total Protein (6.3-8.2) g/dL Albumin (3.5-5.0) g/dL 02/09/19 02/09/19 02/09/19 Range/Units 15:19 15:30 15:30 WBC (3.8-10.6) k/uL RBC (4.30-5.90) m/uL Hgb (13.0-17.5) gm/dL Hct (39.0-53.0) % Neutrophils # (1.3-7.7) k/uL Monocytes # (0-1.0) k/uL ABG pH (7.35-7.45) ABG pCO2 (35-45) mmHg ABG pO2 129 H (83-108) mmHg ABG HCO3 (21-25) mmol/L ABG Total CO2 26 H (19-24) mmol/L ABG O2 Saturation 99.0 H (94-97) % Sodium (137-145) mmol/L Potassium (3.5-5.1) mmol/L Chloride (98-107) mmol/L Carbon Dioxide (22-30) mmol/L BUN (9-20) mg/dL Creatinine (0.66-1.25) mg/dL Glucose (74-99) mg/dL POC Glucose (mg/dL) (75-99) mg/dL Plasma Lactic Acid Jose Carlos 5.1 H* (0.7-2.0) mmol/L Calcium (8.4-10.2) mg/dL AST (17-59) U/L ALT (4-49) U/L Troponin I 25.000 H* (0.000-0.034) ng/mL Total Protein (6.3-8.2) g/dL Albumin (3.5-5.0) g/dL 02/09/19 02/09/19 02/09/19 Range/Units 19:00 19:53 19:55 WBC (3.8-10.6) k/uL RBC (4.30-5.90) m/uL Hgb (13.0-17.5) gm/dL Hct (39.0-53.0) % Neutrophils # (1.3-7.7) k/uL Monocytes # (0-1.0) k/uL ABG pH (7.35-7.45) ABG pCO2 (35-45) mmHg ABG pO2 (83-108) mmHg ABG HCO3 (21-25) mmol/L ABG Total CO2 (19-24) mmol/L ABG O2 Saturation (94-97) % Sodium (137-145) mmol/L Potassium (3.5-5.1) mmol/L Chloride (98-107) mmol/L Carbon Dioxide (22-30) mmol/L BUN (9-20) mg/dL Creatinine (0.66-1.25) mg/dL Glucose (74-99) mg/dL POC Glucose (mg/dL) 484 H 399 H (75-99) mg/dL Plasma Lactic Acid Jose Carlos (0.7-2.0) mmol/L Calcium (8.4-10.2) mg/dL AST (17-59) U/L ALT (4-49) U/L Troponin I 41.000 H* (0.000-0.034) ng/mL Total Protein (6.3-8.2) g/dL Albumin (3.5-5.0) g/dL 02/09/19 02/09/19 02/09/19 Range/Units 19:55 19:55 21:16 WBC (3.8-10.6) k/uL RBC (4.30-5.90) m/uL Hgb (13.0-17.5) gm/dL Hct (39.0-53.0) % Neutrophils # (1.3-7.7) k/uL Monocytes # (0-1.0) k/uL ABG pH (7.35-7.45) ABG pCO2 (35-45) mmHg ABG pO2 (83-108) mmHg ABG HCO3 (21-25) mmol/L ABG Total CO2 (19-24) mmol/L ABG O2 Saturation (94-97) % Sodium 147 H (137-145) mmol/L Potassium 2.3 L* (3.5-5.1) mmol/L Chloride 119 H (98-107) mmol/L Carbon Dioxide 19 L (22-30) mmol/L BUN 36 H (9-20) mg/dL Creatinine 3.26 H (0.66-1.25) mg/dL Glucose 330 H (74-99) mg/dL POC Glucose (mg/dL) 407 H (75-99) mg/dL Plasma Lactic Acid Jose Carlos 4.5 H* (0.7-2.0) mmol/L Calcium 4.9 L* (8.4-10.2) mg/dL AST 147 H (17-59) U/L ALT 53 H (4-49) U/L Troponin I (0.000-0.034) ng/mL Total Protein 4.0 L (6.3-8.2) g/dL Albumin 1.6 L (3.5-5.0) g/dL 02/09/19 02/09/19 02/10/19 Range/Units 22:05 23:08 00:08 WBC (3.8-10.6) k/uL RBC (4.30-5.90) m/uL Hgb (13.0-17.5) gm/dL Hct (39.0-53.0) % Neutrophils # (1.3-7.7) k/uL Monocytes # (0-1.0) k/uL ABG pH (7.35-7.45) ABG pCO2 (35-45) mmHg ABG pO2 (83-108) mmHg ABG HCO3 (21-25) mmol/L ABG Total CO2 (19-24) mmol/L ABG O2 Saturation (94-97) % Sodium (137-145) mmol/L Potassium (3.5-5.1) mmol/L Chloride (98-107) mmol/L Carbon Dioxide (22-30) mmol/L BUN (9-20) mg/dL Creatinine (0.66-1.25) mg/dL Glucose (74-99) mg/dL POC Glucose (mg/dL) 374 H 323 H 287 H (75-99) mg/dL Plasma Lactic Acid Jose Carlos (0.7-2.0) mmol/L Calcium (8.4-10.2) mg/dL AST (17-59) U/L ALT (4-49) U/L Troponin I (0.000-0.034) ng/mL Total Protein (6.3-8.2) g/dL Albumin (3.5-5.0) g/dL 02/10/19 02/10/19 02/10/19 Range/Units 00:10 01:06 02:05 WBC (3.8-10.6) k/uL RBC (4.30-5.90) m/uL Hgb (13.0-17.5) gm/dL Hct (39.0-53.0) % Neutrophils # (1.3-7.7) k/uL Monocytes # (0-1.0) k/uL ABG pH (7.35-7.45) ABG pCO2 (35-45) mmHg ABG pO2 (83-108) mmHg ABG HCO3 (21-25) mmol/L ABG Total CO2 (19-24) mmol/L ABG O2 Saturation (94-97) % Sodium (137-145) mmol/L Potassium (3.5-5.1) mmol/L Chloride (98-107) mmol/L Carbon Dioxide (22-30) mmol/L BUN (9-20) mg/dL Creatinine (0.66-1.25) mg/dL Glucose (74-99) mg/dL POC Glucose (mg/dL) 237 H 230 H (75-99) mg/dL Plasma Lactic Acid Jose Carlos 5.7 H* (0.7-2.0) mmol/L Calcium (8.4-10.2) mg/dL AST (17-59) U/L ALT (4-49) U/L Troponin I (0.000-0.034) ng/mL Total Protein (6.3-8.2) g/dL Albumin (3.5-5.0) g/dL 02/10/19 02/10/19 02/10/19 Range/Units 03:00 03:03 04:10 WBC 17.1 H (3.8-10.6) k/uL RBC 3.11 L (4.30-5.90) m/uL Hgb 9.3 L (13.0-17.5) gm/dL Hct 28.0 L (39.0-53.0) % Neutrophils # 13.6 H (1.3-7.7) k/uL Monocytes # 1.4 H (0-1.0) k/uL ABG pH (7.35-7.45) ABG pCO2 (35-45) mmHg ABG pO2 (83-108) mmHg ABG HCO3 (21-25) mmol/L ABG Total CO2 (19-24) mmol/L ABG O2 Saturation (94-97) % Sodium (137-145) mmol/L Potassium (3.5-5.1) mmol/L Chloride (98-107) mmol/L Carbon Dioxide (22-30) mmol/L BUN 54 H (9-20) mg/dL Creatinine 5.47 H (0.66-1.25) mg/dL Glucose 212 H (74-99) mg/dL POC Glucose (mg/dL) 220 H (75-99) mg/dL Plasma Lactic Acid Jose Carlos (0.7-2.0) mmol/L Calcium (8.4-10.2) mg/dL AST (17-59) U/L ALT (4-49) U/L Troponin I (0.000-0.034) ng/mL Total Protein (6.3-8.2) g/dL Albumin (3.5-5.0) g/dL 02/10/19 02/10/19 02/10/19 Range/Units 04:10 04:15 05:14 WBC (3.8-10.6) k/uL RBC (4.30-5.90) m/uL Hgb (13.0-17.5) gm/dL Hct (39.0-53.0) % Neutrophils # (1.3-7.7) k/uL Monocytes # (0-1.0) k/uL ABG pH (7.35-7.45) ABG pCO2 (35-45) mmHg ABG pO2 (83-108) mmHg ABG HCO3 (21-25) mmol/L ABG Total CO2 (19-24) mmol/L ABG O2 Saturation (94-97) % Sodium (137-145) mmol/L Potassium (3.5-5.1) mmol/L Chloride (98-107) mmol/L Carbon Dioxide (22-30) mmol/L BUN (9-20) mg/dL Creatinine (0.66-1.25) mg/dL Glucose (74-99) mg/dL POC Glucose (mg/dL) 223 H 224 H (75-99) mg/dL Plasma Lactic Acid Jose Carlos 3.9 H* (0.7-2.0) mmol/L Calcium (8.4-10.2) mg/dL AST (17-59) U/L ALT (4-49) U/L Troponin I (0.000-0.034) ng/mL Total Protein (6.3-8.2) g/dL Albumin (3.5-5.0) g/dL 02/10/19 02/10/19 02/10/19 Range/Units 05:38 06:04 07:02 WBC (3.8-10.6) k/uL RBC (4.30-5.90) m/uL Hgb (13.0-17.5) gm/dL Hct (39.0-53.0) % Neutrophils # (1.3-7.7) k/uL Monocytes # (0-1.0) k/uL ABG pH 7.58 H* (7.35-7.45) ABG pCO2 31 L (35-45) mmHg ABG pO2 348 H (83-108) mmHg ABG HCO3 29 H (21-25) mmol/L ABG Total CO2 30 H (19-24) mmol/L ABG O2 Saturation 98.9 H (94-97) % Sodium (137-145) mmol/L Potassium (3.5-5.1) mmol/L Chloride (98-107) mmol/L Carbon Dioxide (22-30) mmol/L BUN (9-20) mg/dL Creatinine (0.66-1.25) mg/dL Glucose (74-99) mg/dL POC Glucose (mg/dL) 220 H 195 H (75-99) mg/dL Plasma Lactic Acid Jose Carlos (0.7-2.0) mmol/L Calcium (8.4-10.2) mg/dL AST (17-59) U/L ALT (4-49) U/L Troponin I (0.000-0.034) ng/mL Total Protein (6.3-8.2) g/dL Albumin (3.5-5.0) g/dL 02/10/19 Range/Units 09:06 WBC (3.8-10.6) k/uL RBC (4.30-5.90) m/uL Hgb (13.0-17.5) gm/dL Hct (39.0-53.0) % Neutrophils # (1.3-7.7) k/uL Monocytes # (0-1.0) k/uL ABG pH (7.35-7.45) ABG pCO2 (35-45) mmHg ABG pO2 (83-108) mmHg ABG HCO3 (21-25) mmol/L ABG Total CO2 (19-24) mmol/L ABG O2 Saturation (94-97) % Sodium (137-145) mmol/L Potassium (3.5-5.1) mmol/L Chloride (98-107) mmol/L Carbon Dioxide (22-30) mmol/L BUN (9-20) mg/dL Creatinine (0.66-1.25) mg/dL Glucose (74-99) mg/dL POC Glucose (mg/dL) 174 H (75-99) mg/dL Plasma Lactic Acid Jose Carlos (0.7-2.0) mmol/L Calcium (8.4-10.2) mg/dL AST (17-59) U/L ALT (4-49) U/L Troponin I (0.000-0.034) ng/mL Total Protein (6.3-8.2) g/dL Albumin (3.5-5.0) g/dL Assessment and Plan Assessment: #1 cardiac arrest secondary to acute ST elevation inferior wall [place] requiring multiple prolonged codes.underwent cardiac cath with stents to RCA. Currently maintained on mechanical ventilation. Epinephrine drip in place. Chest x-ray completed showing improvement in lung volume irrigation. Pulmonary and critical care service is following. Patient currently maintained on Zosyn. Post cardiac cath 2-D echo completed showing EF of 35-40% #2 gangrene involving the right fifth toe with surrounding cellulitis Status post amputation of fourth and fifth toe with Dr. Edward and status post right BKA. #3 sepsis present on admission as evidenced by fever, leukocytosis, and elevated lactic acid. wound cultures growing gram-negative bacilli. White blood cell improving down to 9.3. patient has completed course of antibiotics per infectious disease no need for antibiotics at this time #4 acute hypoxic and hypercapnic respiratory failure with altered mental status changes secondary to severe sepsis. Patient was transferred to the intensive care unit and placed on mechanical ventilation. patient has been successfully extubated to 2 L. #5. Hypotension secondary to septic shock requiring Levophed for pressure support. resolved #6. Acute kidney injury secondary to ATN secondary to hypotension as well as vancomycin toxicity. Nephrology services are following. Ultrasound completed showing no evidence of hydronephrosis. currently receiving hemodialysis. Permanent hemodialysis catheter placed on 01/29/2019. On 02/10/2018 patient receiving hemodialysis #7. history of essential hypertension. Cardiology services following. EF 50- 55%. Per cardiology services no evidence of acute coronary syndrome at this ti me. hydralazine has been added by mouth #8. insulin-dependent diabetes mellitus, with poor control due to noncompliance last hemoglobin A1c was 9.8 at this time will hold glipizide, Januvia and metfo rmin, and cover was insulin to sliding scale will adjust medications as needed. Blood sugars have been in the 200s after episode of hypoglycemia. Patient currently on insulin drip for tight blood sugar control. Post cardiac arrest patient started back on insulin drip #9. underlying history of diabetic complications of peripheral neuropathy and retinopathy. #10. poor compliance with medical management, patient had extensive counseling in the last year, his A1c was down to 7.1 in June however it was up to 9.8 again recently. #11 underlying history of hyperlipidemia maintained on atorvastatin, on hold. #12. Hypoglycemia. Home meds DC'd. Tube feedings have been initiated. Hypoglycemia has resolved #13. volume overload. Patient maintained on IV Lasix. Nephrology services are following #14. History of glaucoma with previous surgeries to left eye. Unequal pupils which patient reports is chronic. patient maintained on multiple eyedrops DVT prophylaxis heparin. GI prophylaxis Protonix Critical care, vascular surgery, infectious disease, cardiology and nephrology services following I performed an examination of the patient and discussed their management with the Nurse Practitioner. I have reviewed the Nurse Practitioner's notes and agree with the documented findings and plan of care
--- NOTE | 2019-02-10 12:10 | P.PN ---
Subjective Progress Note Date: 02/10/19 Principal diagnosis: Cardiac arrest 68-year-old male patient who got transferred to the intensive care unit after a acute cardiopulmonary arrest that occurred on the medical floor this morning. I am covering today for Dr. Dominguez and for that reason I am seeing this patient in the intensive care unit. Briefly, he has prolonged hypoxic respiratory failure that occurred following a infected gangrenous right foot for which the patient underwent a right below-knee amputation. He had a staphylococcal infection. He also developed acute kidney injury and the patient is currently on dialysis 3 times a week and his last dialysis session was done on Sunday. The patient has also cbc-gplwtuh-edqgfagro diabetes mellitus, hypertension and hypertensive heart and peripheral neuropathy and hyperlipidemia and COPDThe patient developed an acute cardiac arrest. The patient was found to be unresponsive this morning. He was found to be PA. Immediately, the core he was involved in the patient was given, 4 rounds of epinephrine, bicarbonate he was intubated and brought into the intensive care unit. Initial EKG showed atrial fibrillation. In addition to a significant ST segment elevation involving the inferior leads and a right bundle branch block patter . Within minutes after his arrival to the intensive care unit, the patient is second code which lasted for around 5 minut es and this was a PEA rhythm and currently with going into the third code. He is currently receiving epinephrine and CPR as the patient went into a PEA. Cardiology is on the case. He has seen the patient the bedside. Breath sounds are equal and bilateral. Potassium level is at 4.7. The blood gases that was done and I showed a pH of 7.01 with a pCO2 of 76 and pO2 of 140. His lactic acid level was 8.8. His BUN is at 43 with a creatinine of 5.0 and a serum bicarbonate this morning prior to the code was 25. His hemoglobin was at 10.1. White cell count of 8.7. Patient was evaluated today on 02/10/2019, intubated, mechanically ventilated, on very small dose of propofol, not responding to any stimuli. Patient had at least 3 episodes of cardiac arrest yesterday requiring reintubation, and required cardiac catheterization. His ventilator settings presently are tidal volume of 500 assist control rate of 20 FiO2 of 50% PEEP of 12. Patient is on propofol at 10 mcg/kg/m, he is on hemodialysis, he is on epinephrine at 0.075 mcg/kg/m. Chest x-ray showed right lower lobe consolidation. Possibly related to aspiration, hence his Zosyn was restarted today empirically. His IV fluid is at 25 mL per hour. And he is about to receive hemodialysis in the next few minutes. ABG this morning on 100% showed a pO2 of 348 pCO2 of 31 pH of 7.58. Electrolytes are normal BUN is 54 creatinine 5.47. WBC count is 17.1 hemoglobin is 9.3. Troponin 41,000. Yesterday the patient had successful stenting of totally occluded distal RCA and he was found to have intracoronary thrombus noted in the takeoff of the PLV. Remains on heparin. Objective - Vital Signs Vital signs: Vital Signs Temp 99.4 F 02/10/19 08:00 Pulse 85 02/10/19 11:30 Resp 20 02/10/19 11:00 BP 113/76 02/10/19 10:45 Pulse Ox 95 02/10/19 11:00 Intake & Output 02/09/19 02/10/19 02/10/19 18:59 06:59 18:59 Intake Total 3013.897 1480.376 354.583 Output Total 4000 196 5 Balance -016.422 4998.376 349.583 Weight 103.1 kg 103.1 kg Intake: IV 2685 130 100 0.9 NACL bolus 1000 D5W 3 amp Hco3 1050 Sodium Chloride 0.9% 1, 300 130 100 000 ml @ 20 mls/hr IV . Q24H [place] Rx#:[id number] Intake, IV Titration 411.351 5179.376 254.583 Amount Bivalirudin 250 mg In 50 Sodium Chloride 0.9% 50 ml @ 0 mls/hr IV .[facility] Rx#:[id number] Calcium Gluconate 2 gm In 300 Sodium Chloride 0.9% 100 ml @ 100 mls/hr IVPB Q1H [place] Rx#:[id number] EPINEPHrine 4 mg In 302.166 451.201 142.79 Dextrose 5% in Water 250 ml @ 0.01 MCG/KG/MIN 3. 619 mls/hr IV .Q24H [place] Rx#:[id number] Insulin Regular 100 unit 74.520 22.035 In Sodium Chloride 0.9% 100 ml @ Per Protocol IV .Q0M [place] Rx#:[id number] Propofol 1,000 mg In 26.731 64.655 39.758 Empty Bag 1 bag @ Titrate IV .Q0M [place] Rx#: [id number] Sodium Chloride 0.9% 1, 300 50 000 ml @ 50 mls/hr IV . Q20H [place] Rx#:[id number] Oral 110 Output: Gastric Drainage 150 Urine 46 5 Hemodialysis 4000 Other: Voiding Method Indwelling Catheter Indwelling Catheter Indwelling Catheter ABP, PAP, CO, CI - Last Documented Arterial Blood Pressure 139/55 - Exam Physical Exam: Revealed 68-year-old white male obese unresponsive to any painful stimuli, on mechanical ventilation. Head: Atraumatic, normocephalic. Endotracheal tube and orogastric tube are intact. HEENT:[Neck is supple.] [No neck masses.] [No thyromegaly.] [No JVD.] Moist mucous membranes, no neck masses, no JVD. Chest: [Symmetrical chest expansion, crackles at the right base. No rhonchi and no wheezes. Cardiac Exam: [Normal S1 and S2, no S3 gallop, 2/6 systolic murmur thought the precordium.] Abdomen: [Obese, Soft, nontender, no megaly, no rebound, no guarding, normal bowel sounds.] Extremities: [No clubbing, 1+ bipedal, no cyanosis.] Right below knee amputation is noted. Neurological Exam: Patient is unresponsive to any stimuli. His eyes are deviated superolaterally, pupils are unequal. Psychiatric could not be assessed. Skin: No rashes. Right below-knee amputation is intact. Wrapped with sterile dressing. - Labs CBC & Chem 7: 02/10/19 04:10 02/10/19 03:00 Labs: Abnormal Lab Results - Last 24 Hours (Table) 02/09/19 02/09/19 02/09/19 Range/Units 11:49 11:52 13:22 WBC (3.8-10.6) k/uL RBC (4.30-5.90) m/uL Hgb (13.0-17.5) gm/dL Hct (39.0-53.0) % Neutrophils # (1.3-7.7) k/uL Monocytes # (0-1.0) k/uL ABG pH 7.28 L (7.35-7.45) ABG pCO2 53 H (35-45) mmHg ABG pO2 67 L 156 H (83-108) mmHg ABG HCO3 (21-25) mmol/L ABG Total CO2 26 H 26 H (19-24) mmol/L ABG O2 Saturation 91.3 L 99.1 H (94-97) % Sodium (137-145) mmol/L Potassium (3.5-5.1) mmol/L Chloride (98-107) mmol/L Carbon Dioxide (22-30) mmol/L BUN (9-20) mg/dL Creatinine (0.66-1.25) mg/dL Glucose (74-99) mg/dL POC Glucose (mg/dL) (75-99) mg/dL Plasma Lactic Acid Jose Carlos 6.0 H* (0.7-2.0) mmol/L Calcium (8.4-10.2) mg/dL AST (17-59) U/L ALT (4-49) U/L Troponin I (0.000-0.034) ng/mL Total Protein (6.3-8.2) g/dL Albumin (3.5-5.0) g/dL 02/09/19 02/09/19 02/09/19 Range/Units 15:19 15:30 15:30 WBC (3.8-10.6) k/uL RBC (4.30-5.90) m/uL Hgb (13.0-17.5) gm/dL Hct (39.0-53.0) % Neutrophils # (1.3-7.7) k/uL Monocytes # (0-1.0) k/uL ABG pH (7.35-7.45) ABG pCO2 (35-45) mmHg ABG pO2 129 H (83-108) mmHg ABG HCO3 (21-25) mmol/L ABG Total CO2 26 H (19-24) mmol/L ABG O2 Saturation 99.0 H (94-97) % Sodium (137-145) mmol/L Potassium (3.5-5.1) mmol/L Chloride (98-107) mmol/L Carbon Dioxide (22-30) mmol/L BUN (9-20) mg/dL Creatinine (0.66-1.25) mg/dL Glucose (74-99) mg/dL POC Glucose (mg/dL) (75-99) mg/dL Plasma Lactic Acid Jose Carlos 5.1 H* (0.7-2.0) mmol/L Calcium (8.4-10.2) mg/dL AST (17-59) U/L ALT (4-49) U/L Troponin I 25.000 H* (0.000-0.034) ng/mL Total Protein (6.3-8.2) g/dL Albumin (3.5-5.0) g/dL 02/09/19 02/09/19 02/09/19 Range/Units 19:00 19:53 19:55 WBC (3.8-10.6) k/uL RBC (4.30-5.90) m/uL Hgb (13.0-17.5) gm/dL Hct (39.0-53.0) % Neutrophils # (1.3-7.7) k/uL Monocytes # (0-1.0) k/uL ABG pH (7.35-7.45) ABG pCO2 (35-45) mmHg ABG pO2 (83-108) mmHg ABG HCO3 (21-25) mmol/L ABG Total CO2 (19-24) mmol/L ABG O2 Saturation (94-97) % Sodium (137-145) mmol/L Potassium (3.5-5.1) mmol/L Chloride (98-107) mmol/L Carbon Dioxide (22-30) mmol/L BUN (9-20) mg/dL Creatinine (0.66-1.25) mg/dL Glucose (74-99) mg/dL POC Glucose (mg/dL) 484 H 399 H (75-99) mg/dL Plasma Lactic Acid Jose Carlos (0.7-2.0) mmol/L Calcium (8.4-10.2) mg/dL AST (17-59) U/L ALT (4-49) U/L Troponin I 41.000 H* (0.000-0.034) ng/mL Total Protein (6.3-8.2) g/dL Albumin (3.5-5.0) g/dL 02/09/19 02/09/19 02/09/19 Range/Units 19:55 19:55 21:16 WBC (3.8-10.6) k/uL RBC (4.30-5.90) m/uL Hgb (13.0-17.5) gm/dL Hct (39.0-53.0) % Neutrophils # (1.3-7.7) k/uL Monocytes # (0-1.0) k/uL ABG pH (7.35-7.45) ABG pCO2 (35-45) mmHg ABG pO2 (83-108) mmHg ABG HCO3 (21-25) mmol/L ABG Total CO2 (19-24) mmol/L ABG O2 Saturation (94-97) % Sodium 147 H (137-145) mmol/L Potassium 2.3 L* (3.5-5.1) mmol/L Chloride 119 H (98-107) mmol/L Carbon Dioxide 19 L (22-30) mmol/L BUN 36 H (9-20) mg/dL Creatinine 3.26 H (0.66-1.25) mg/dL Glucose 330 H (74-99) mg/dL POC Glucose (mg/dL) 407 H (75-99) mg/dL Plasma Lactic Acid Jose Carlos 4.5 H* (0.7-2.0) mmol/L Calcium 4.9 L* (8.4-10.2) mg/dL AST 147 H (17-59) U/L ALT 53 H (4-49) U/L Troponin I (0.000-0.034) ng/mL Total Protein 4.0 L (6.3-8.2) g/dL Albumin 1.6 L (3.5-5.0) g/dL 02/09/19 02/09/19 02/10/19 Range/Units 22:05 23:08 00:08 WBC (3.8-10.6) k/uL RBC (4.30-5.90) m/uL Hgb (13.0-17.5) gm/dL Hct (39.0-53.0) % Neutrophils # (1.3-7.7) k/uL Monocytes # (0-1.0) k/uL ABG pH (7.35-7.45) ABG pCO2 (35-45) mmHg ABG pO2 (83-108) mmHg ABG HCO3 (21-25) mmol/L ABG Total CO2 (19-24) mmol/L ABG O2 Saturation (94-97) % Sodium (137-145) mmol/L Potassium (3.5-5.1) mmol/L Chloride (98-107) mmol/L Carbon Dioxide (22-30) mmol/L BUN (9-20) mg/dL Creatinine (0.66-1.25) mg/dL Glucose (74-99) mg/dL POC Glucose (mg/dL) 374 H 323 H 287 H (75-99) mg/dL Plasma Lactic Acid Jose Carlos (0.7-2.0) mmol/L Calcium (8.4-10.2) mg/dL AST (17-59) U/L ALT (4-49) U/L Troponin I (0.000-0.034) ng/mL Total Protein (6.3-8.2) g/dL Albumin (3.5-5.0) g/dL 02/10/19 02/10/19 02/10/19 Range/Units 00:10 01:06 02:05 WBC (3.8-10.6) k/uL RBC (4.30-5.90) m/uL Hgb (13.0-17.5) gm/dL Hct (39.0-53.0) % Neutrophils # (1.3-7.7) k/uL Monocytes # (0-1.0) k/uL ABG pH (7.35-7.45) ABG pCO2 (35-45) mmHg ABG pO2 (83-108) mmHg ABG HCO3 (21-25) mmol/L ABG Total CO2 (19-24) mmol/L ABG O2 Saturation (94-97) % Sodium (137-145) mmol/L Potassium (3.5-5.1) mmol/L Chloride (98-107) mmol/L Carbon Dioxide (22-30) mmol/L BUN (9-20) mg/dL Creatinine (0.66-1.25) mg/dL Glucose (74-99) mg/dL POC Glucose (mg/dL) 237 H 230 H (75-99) mg/dL Plasma Lactic Acid Jose Carlos 5.7 H* (0.7-2.0) mmol/L Calcium (8.4-10.2) mg/dL AST (17-59) U/L ALT (4-49) U/L Troponin I (0.000-0.034) ng/mL Total Protein (6.3-8.2) g/dL Albumin (3.5-5.0) g/dL 02/10/19 02/10/19 02/10/19 Range/Units 03:00 03:03 04:10 WBC 17.1 H (3.8-10.6) k/uL RBC 3.11 L (4.30-5.90) m/uL Hgb 9.3 L (13.0-17.5) gm/dL Hct 28.0 L (39.0-53.0) % Neutrophils # 13.6 H (1.3-7.7) k/uL Monocytes # 1.4 H (0-1.0) k/uL ABG pH (7.35-7.45) ABG pCO2 (35-45) mmHg ABG pO2 (83-108) mmHg ABG HCO3 (21-25) mmol/L ABG Total CO2 (19-24) mmol/L ABG O2 Saturation (94-97) % Sodium (137-145) mmol/L Potassium (3.5-5.1) mmol/L Chloride (98-107) mmol/L Carbon Dioxide (22-30) mmol/L BUN 54 H (9-20) mg/dL Creatinine 5.47 H (0.66-1.25) mg/dL Glucose 212 H (74-99) mg/dL POC Glucose (mg/dL) 220 H (75-99) mg/dL Plasma Lactic Acid Jose Carlos (0.7-2.0) mmol/L Calcium (8.4-10.2) mg/dL AST (17-59) U/L ALT (4-49) U/L Troponin I (0.000-0.034) ng/mL Total Protein (6.3-8.2) g/dL Albumin (3.5-5.0) g/dL 02/10/19 02/10/19 02/10/19 Range/Units 04:10 04:15 05:14 WBC (3.8-10.6) k/uL RBC (4.30-5.90) m/uL Hgb (13.0-17.5) gm/dL Hct (39.0-53.0) % Neutrophils # (1.3-7.7) k/uL Monocytes # (0-1.0) k/uL ABG pH (7.35-7.45) ABG pCO2 (35-45) mmHg ABG pO2 (83-108) mmHg ABG HCO3 (21-25) mmol/L ABG Total CO2 (19-24) mmol/L ABG O2 Saturation (94-97) % Sodium (137-145) mmol/L Potassium (3.5-5.1) mmol/L Chloride (98-107) mmol/L Carbon Dioxide (22-30) mmol/L BUN (9-20) mg/dL Creatinine (0.66-1.25) mg/dL Glucose (74-99) mg/dL POC Glucose (mg/dL) 223 H 224 H (75-99) mg/dL Plasma Lactic Acid Jose Carlos 3.9 H* (0.7-2.0) mmol/L Calcium (8.4-10.2) mg/dL AST (17-59) U/L ALT (4-49) U/L Troponin I (0.000-0.034) ng/mL Total Protein (6.3-8.2) g/dL Albumin (3.5-5.0) g/dL 02/10/19 02/10/19 02/10/19 Range/Units 05:38 06:04 07:02 WBC (3.8-10.6) k/uL RBC (4.30-5.90) m/uL Hgb (13.0-17.5) gm/dL Hct (39.0-53.0) % Neutrophils # (1.3-7.7) k/uL Monocytes # (0-1.0) k/uL ABG pH 7.58 H* (7.35-7.45) ABG pCO2 31 L (35-45) mmHg ABG pO2 348 H (83-108) mmHg ABG HCO3 29 H (21-25) mmol/L ABG Total CO2 30 H (19-24) mmol/L ABG O2 Saturation 98.9 H (94-97) % Sodium (137-145) mmol/L Potassium (3.5-5.1) mmol/L Chloride (98-107) mmol/L Carbon Dioxide (22-30) mmol/L BUN (9-20) mg/dL Creatinine (0.66-1.25) mg/dL Glucose (74-99) mg/dL POC Glucose (mg/dL) 220 H 195 H (75-99) mg/dL Plasma Lactic Acid Jose Carlos (0.7-2.0) mmol/L Calcium (8.4-10.2) mg/dL AST (17-59) U/L ALT (4-49) U/L Troponin I (0.000-0.034) ng/mL Total Protein (6.3-8.2) g/dL Albumin (3.5-5.0) g/dL 02/10/19 02/10/19 Range/Units 09:06 10:37 WBC (3.8-10.6) k/uL RBC (4.30-5.90) m/uL Hgb (13.0-17.5) gm/dL Hct (39.0-53.0) % Neutrophils # (1.3-7.7) k/uL Monocytes # (0-1.0) k/uL ABG pH (7.35-7.45) ABG pCO2 (35-45) mmHg ABG pO2 (83-108) mmHg ABG HCO3 (21-25) mmol/L ABG Total CO2 (19-24) mmol/L ABG O2 Saturation (94-97) % Sodium (137-145) mmol/L Potassium (3.5-5.1) mmol/L Chloride (98-107) mmol/L Carbon Dioxide (22-30) mmol/L BUN (9-20) mg/dL Creatinine (0.66-1.25) mg/dL Glucose (74-99) mg/dL POC Glucose (mg/dL) 174 H 137 H (75-99) mg/dL Plasma Lactic Acid Jose Carlos (0.7-2.0) mmol/L Calcium (8.4-10.2) mg/dL AST (17-59) U/L ALT (4-49) U/L Troponin I (0.000-0.034) ng/mL Total Protein (6.3-8.2) g/dL Albumin (3.5-5.0) g/dL Microbiology - Last 24 Hours (Table) 02/10/19 01:18 Sputum Culture - Preliminary Sputum Assessment and Plan Assessment: Impression: Cardiac arrest 3, acute ST elevation myocardial infarction, requiring CPR and defibrillation. Followed by cardiac catheterization/urgent. Status post stenting of RCA Suspect anoxic brain injury Cardiogenic shock post cardiac arrest requiring pressors, patient remains on epinephrine drip. Acute kidney injury, acute tubular necrosis, presently on hemodialysis. 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 History of hepatitis B Recommendation: Continue present supportive care measures, Continue ventilatory support. Continue hemodynamic support. Continue nutritional support. Will start enteral feeding. Neurological evaluation for possible anoxic brain injury which is strongly suspected No plans to wean and extubate at this point since his neurological status is a major concern. Condition remains extremely critical. Suspect high mortality. Patient has been in the hospital for almost a month. Critical care time is 40 minutes Time with Patient: Greater than 30
[2019-02-10 12:17] LABS: Glucose,Whole Blood 187 mg/dL (75-99)
[2019-02-10] MEDS ORDERED: CISATRACURIUM 2 MG/ML 5 ML VIAL IV ONE (12:44)
--- NOTE | 2019-02-10 12:46 | PN ---
PROGRESS NOTE The patient is seen for followup for acute kidney injury. He currently remains on the vent. He is on small amount of sedation. Urine output is basically mL/hour. Patient is epi and small dose of Levophed is . His FiO2 is down to about 50%. Last dialysis was on 02/08/2019. PHYSICAL EXAMINATION: On examination today, patient is on the vent, sedated. Blood pressure this morning was 113/76, heart rate 86 per minute. He is afebrile. EXAMINATION OF THE HEART: S1, S2. Patient is on the vent. Abdomen is soft, distended, obese. Examination of lower extremities shows right BKA. Trace edema noted left lower extremity. LABS: Labs show hemoglobin 9.3, sodium 143, potassium 4.6, BUN 54, creatinine 5.47, lactic acid 3.9. ASSESSMENT: 1. Acute kidney injury, acute tubular necrosis, currently hemodialysis dependent. We will plan for hemodialysis today. Try small amount of ultrafiltration as tolerated. 2. Status post cardiac arrest. 3. Hypoxic respiratory failure. 4. Gangrene on the right foot, status post amputation of toes and then eventually right below knee amputation. 5. Status post . 6. Metabolic acidosis. 7. Lactic acidosis, status post cardiac arrest. 8. Anemia, . Maintained on Aranesp. PLAN: Hemodialysis today. Small amount of ultrafiltration as tolerated. MMODL / IJN: [id number] /
--- NOTE | 2019-02-10 13:17 | XR ---
EXAMINATION TYPE: XR chest 1V portable DATE OF EXAM: 02/10/2019 Comparison: 02/10/2019 Clinical History: 68 year-old male shortness of breath, ERIN Findings: Right-sided double-lumen hemodialysis catheter with tips at the cavoatrial junction. Left subclavian CVC tip also at the cavoatrial junction. ET tube is in place. NG tube courses below the diaphragm. Heart mildly enlarged with perihilar densities and right greater than left bibasilar opacities, simil ar on both sides. Impression: 1. Cardiomegaly with interstitial prominence. Correlate for pulmonary vascular congestion. 2. Continued small right greater than left pleural effusions with adjacent atelectasis and/or consoli dation.
[2019-02-10 13:35] LABS: Glucose,Whole Blood 168 mg/dL (75-99)
[2019-02-10] MEDS: PIPERACILLIN-TAZOBACTAM 3.375 GM in SODIUM CHLORIDE 0.9% 100 ML IVPB SCH ×2 (15:19→21:18)
[2019-02-10 15:21] LABS: Glucose,Whole Blood 198 mg/dL (75-99)
[2019-02-10 16:22] LABS: Glucose,Whole Blood 194 mg/dL (75-99)
--- NOTE | 2019-02-10 16:25 | P.CNNES ---
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 Patient subsequently underwent right below-knee amputation on 01/22/2019 and was in ICU. He was on mechanical ventilation. Patient has difficulty getting off the ventilator. He was finally extubated on 02/02/2019. Patient was noted to be lethargic. He was using BiPAP on the 02/08/2019. Patient coded 3 times yesterday on 02/09/2019 at 6:30 AM for 15 minutes, and then 5 minutes each at 8:05 AM and 9:15 AM. Patient is intubated, currently on sedation with propofol 30 g. Patient is unresponsive to painful stimuli. No seizure activity has been noticed. Patient has a very weak cough and gag. Please refer to examination below. Review of Systems ROS unobtainable: due to endotracheal tube, due to mental status Past Medical History Past Medical History: Diabetes Mellitus, Hyperlipidemia, Hypertension, Myocardial Infarction (VA), Osteoarthritis (OA) Additional Past Medical History / Comment(s): SILENT VA-UNK DATE, NEUROPATHY/FEET,RLS, BROKEN LT ELBOW AND RT ANKLE HAD SX ON BOTH HAS SCREWS IN PLACE, PREVIOUS DIABETIC ULCERS. Wounds Right foot. Last Myocardial Infarction Date:: UNK History of Any Multi-Drug Resistant Organisms: MRSA Date of last positivie culture/infection: 02/04/15 MDRO Source:: Right Foot Past Surgical History: Heart Catheterization Additional Past Surgical History / Comment(s): LT MIDDLE TOE AMPUTION, ORIF LT ELBOW, RT ANKLE HAS SCREWS IN PLACE, PICC LINE LT ARM SINCE REMOVED. Right foot incision and drainage Past Anesthesia/Blood Transfusion Reactions: No Reported Reaction Past Psychological History: No Psychological Hx Reported Additional Psychological History / Comment(s): Single. Retired. No experience. no animals in the home. Not a current tobacco smoker Smoking Status: Never smoker Past Alcohol Use History: None Reported Past Drug Use History: None Reported - Past Family History Mother Family Medical History: Diabetes Mellitus Additional Family Medical History / Comment(s): CARDIAC PROBLEMS AT AGE 63 Father History Unknown: Yes Additional Family Medical History / Comment(s): father of mrsa in hip post sx 2017 age 91. Medications and Allergies Home Medications Medication Instructions Recorded Confirmed Type HYDROcodone/APAP 10-325MG [[place] 1 tab PO TID PRN 02/03/15 01/15/19 History 10-325] glipiZIDE [Glucotrol] 10 mg PO DAILY 02/03/15 01/15/19 History Insuln Asp Prt/Insulin Aspart 35 unit SQ AC-BRKFST 03/22/16 01/15/19 History [NovoLOG MIX 70-30 VIAL] Brimonidine Tartrate [Alphagan P 1 drops LEFT EYE TID 08/08/18 01/15/19 History 0.2% Ophth Soln] Dorzolamide 2% [Trusopt 2%] 1 drops LEFT EYE TID 08/08/18 01/15/19 History FLUoxetine HCL [PROzac] 20 mg PO DAILY 08/08/18 01/15/19 History Insuln Asp Prt/Insulin Aspart 20 unit SQ HS 08/08/18 01/15/19 History [NovoLOG MIX 70-30 VIAL] Latanoprost/Pf [Latanoprost 0.005% 1 drop LEFT EYE HS 08/08/18 01/15/19 History Eye Drop] Lisinopril 40 mg PO DAILY 08/08/18 01/15/19 History Timolol 0.5% Ophth Soln [Timoptic 1 drop LEFT EYE BID 08/08/18 01/15/19 History 0.5% Ophth Soln] metFORMIN HCL [Glucophage] 500 mg PO BID 08/08/18 01/15/19 History Gabapentin [Neurontin] 100 mg PO HS 01/15/19 01/20/19 History Insulin Aspart [NovoLOG] 8 units SQ AC-SUPPER 01/15/19 01/15/19 History rOPINIRole HCL [Requip] 2 mg PO HS 01/15/19 01/15/19 History Atorvastatin [Lipitor] 40 mg PO HS 01/20/19 01/20/19 History Pioglitazone [Actos] 30 mg PO DAILY 01/20/19 01/20/19 History amLODIPine BESYLATE 5 mg PO DIRECTED 01/20/19 01/20/19 History Allergies Allergy/AdvReac Type Severity Reaction Status Date / Time No Known Allergies Allergy Verified 01/15/19 21:52 Physical Examination - Vital Signs Vital Signs: Vital Signs Temp Pulse Pulse Resp BP Pulse Ox 02/10/19 15:00 71 20 100 02/10/19 14:45 70 20 100 02/10/19 14:30 71 20 100 02/10/19 14:15 73 20 106/60 100 02/10/19 14:00 74 20 100 02/10/19 13:45 77 21 100 02/10/19 13:30 81 23 100 02/10/19 13:15 85 20 100 02/10/19 13:00 85 20 100 02/10/19 12:59 99.1 F 90 24 02/10/19 12:45 90 24 99 02/10/19 12:30 90 23 97 02/10/19 12:15 85 21 92/62 95 02/10/19 12:00 97.7 F 92 26 H 92 L 02/10/19 11:45 89 26 H 94 L 02/10/19 11:30 85 24 97 02/10/19 11:16 87 02/10/19 11:15 90 28 H 93 L 02/10/19 11:00 87 20 95 02/10/19 10:45 86 22 113/76 95 02/10/19 10:30 85 23 97 02/10/19 10:15 89 22 95 02/10/19 10:00 87 20 96 02/10/19 09:45 81 20 97 02/10/19 09:30 84 20 97 02/10/19 09:15 80 20 98 02/10/19 09:00 80 20 99 02/10/19 08:45 80 20 99 02/10/19 08:30 77 20 99 02/10/19 08:15 77 20 99 02/10/19 08:00 99.4 F 79 20 99 02/10/19 07:45 79 20 99 02/10/19 07:39 79 02/10/19 07:30 79 20 99 02/10/19 07:15 79 20 99 02/10/19 07:13 80 02/10/19 07:00 81 20 98 02/10/19 06:45 80 99 02/10/19 06:30 80 99 02/10/19 06:15 89 20 99 02/10/19 06:00 80 30 H 111/67 100 02/10/19 05:45 80 111/67 100 02/10/19 05:30 78 111/67 100 02/10/19 05:15 78 93/57 100 02/10/19 05:00 79 30 H 100 02/10/19 04:54 80 02/10/19 04:45 100.2 F H 80 100 02/10/19 04:41 79 02/10/19 04:30 79 100 02/10/19 04:15 79 100 02/10/19 04:00 78 30 H 93/57 100 02/10/19 03:45 80 100 02/10/19 03:30 80 98 02/10/19 03:15 79 99 02/10/19 03:00 77 30 H 100 02/10/19 02:45 77 100 02/10/19 02:30 82 100 02/10/19 02:15 76 100 02/10/19 02:00 76 30 H 100 02/10/19 01:45 75 30 H 100 02/10/19 01:30 75 30 H 100 02/10/19 01:17 76 02/10/19 01:15 76 30 H 100 02/10/19 01:01 76 02/10/19 01:00 77 30 H 99 02/10/19 00:45 74 30 H 100 02/10/19 00:30 78 30 H 100 02/10/19 00:15 78 13 02/10/19 00:00 100.0 F H 79 31 H 99 02/09/19 23:45 80 30 H 99 02/09/19 23:30 80 31 H 99 02/09/19 23:15 80 98 02/09/19 23:00 99.7 F H 77 30 H 100 02/09/19 22:45 80 97 02/09/19 22:30 80 99 02/09/19 22:15 80 99 02/09/19 22:00 78 30 H 100 02/09/19 21:45 80 100 02/09/19 21:30 81 100 02/09/19 21:15 84 100 02/09/19 21:00 99.7 F H 84 30 H 100 02/09/19 20:45 85 103/57 100 02/09/19 20:30 86 100 02/09/19 20:15 95 100 02/09/19 20:00 99.5 F 86 30 H 93 L 02/09/19 19:45 86 30 H 95 02/09/19 19:44 86 02/09/19 19:36 89 02/09/19 19:30 88 30 H 96 02/09/19 19:15 85 30 H 88 L 02/09/19 19:00 84 30 H 86 L 02/09/19 18:45 84 30 H 87 L 02/09/19 18:30 88 30 H 87 L 02/09/19 18:15 97 30 H 87 L 02/09/19 18:00 91 30 H 89 L 02/09/19 17:45 90 20 87 L 02/09/19 17:30 85 30 H 86 L 02/09/19 17:15 86 30 H 86 L 02/09/19 17:00 89 30 H 86 L 02/09/19 16:45 89 24 85 L 02/09/19 16:30 87 30 H 87 L 02/09/19 16:15 88 30 H 87 L 02/09/19 16:00 98.0 F 87 29 H 87 L 02/09/19 15:45 87 29 H 87 L 02/09/19 15:44 87 02/09/19 15:34 92 02/09/19 15:30 86 20 87 L Intake and Output 02/10/19 02/10/19 02/10/19 06:59 14:59 22:59 Intake Total 851.282 532.067 59.315 Output Total 166 5 Balance 685.282 527.067 59.315 Intake: IV 60 190 20 Sodium Chloride 0.9% 1, 60 190 20 000 ml @ 20 mls/hr IV . Q24H [facility] Rx#:[id number] Intake, IV Titration 741.282 342.067 39.315 Amount Bivalirudin 250 mg In 50 Sodium Chloride 0.9% 50 ml @ 0 mls/hr IV .[facility] Rx#:[id number] Calcium Gluconate 2 gm In 100 Sodium Chloride 0.9% 100 ml @ 100 mls/hr IVPB Q1H [facility] Rx#:[id number] EPINEPHrine 4 mg In 252.107 201.655 Dextrose 5% in Water 250 ml @ 0.01 MCG/KG/MIN 3. 619 mls/hr IV .Q24H [facility] Rx#:[id number] Insulin Regular 100 unit 74.520 26.529 3.198 In Sodium Chloride 0.9% 100 ml @ Per Protocol IV .Q0M [place] Rx#:[id number] Propofol 1,000 mg In 64.655 63.883 36.117 Empty Bag 1 bag @ Titrate IV .Q0M [place] Rx#: [id number] Sodium Chloride 0.9% 1, 200 50 000 ml @ 50 mls/hr IV . Q20H [place] Rx#:[id number] Oral 50 Output: Gastric Drainage 150 Urine 16 5 Hemodialysis 0 Other: Voiding Method Indwelling Catheter Indwelling Catheter Weight 103.1 kg 103.1 kg ABP, PAP, CO, CI - Last 8 Hours Arterial Blood Pressure 128/49 Arterial Blood Pressure 128/49 Arterial Blood Pressure 128/49 Arterial Blood Pressure 127/49 Arterial Blood Pressure 131/51 Arterial Blood Pressure 133/51 Arterial Blood Pressure 140/54 Arterial Blood Pressure 148/54 Arterial Blood Pressure 141/54 Arterial Blood Pressure 139/53 Arterial Blood Pressure 137/54 Arterial Blood Pressure 124/49 Arterial Blood Pressure 128/50 Arterial Blood Pressure 126/49 Arterial Blood Pressure 126/49 Arterial Blood Pressure 158/58 Arterial Blood Pressure 139/55 Arterial Blood Pressure 170/65 Arterial Blood Pressure 117/50 Arterial Blood Pressure 142/55 Arterial Blood Pressure 155/56 Arterial Blood Pressure 135/50 Arterial Blood Pressure 147/54 Arterial Blood Pressure 133/49 Arterial Blood Pressure 142/55 Arterial Blood Pressure 145/56 Arterial Blood Pressure 129/49 Arterial Blood Pressure 130/50 Arterial Blood Pressure 143/54 Arterial Blood Pressure 128/50 Arterial Blood Pressure 125/50 On examination patient is an elderly male, who is intubated, partially sedated. Patient at present is unresponsive to painful saliva. His left pupil is irregular, large from previous glaucoma surgery. His right pupil is 3 mm, very sluggishly and questionably reacting. Oculocephalics are absent. Corneals is mildly present. Patient does not respond to friend. Light. He has right below-knee amputation. Reflexes are absent. Patient has a week gag and cough. He does not breathe over the ventilator. Results - Laboratory Findings CBC and BMP: 02/10/19 04:10 02/10/19 03:00 Abnormal Lab Findings: Abnormal Labs 01/15/19 01/15/19 01/15/19 20:20 20:20 20:20 WBC 22.2 H RBC Hgb Hct Neutrophils # 19.6 H Lymphocytes # 0.9 L Monocytes # 1.2 H PT INR APTT ABG pH ABG pCO2 ABG pO2 ABG HCO3 ABG Total CO2 ABG O2 Saturation Sodium 136 L Potassium Chloride 96 L Carbon Dioxide BUN 30 H Creatinine Glucose 498 H POC Glucose (mg/dL) Plasma Lactic Acid Jose Carlos 2.3 H* Calcium Phosphorus Magnesium Iron TIBC Ferritin AST ALT Troponin I Total Protein Albumin 3.3 L Urine Protein Urine Glucose (UA) Amorphous Sediment Hep Bs Antigen Hep B Core Total Ab 01/15/19 01/16/19 01/16/19 23:22 00:44 07:18 WBC RBC Hgb Hct Neutrophils # Lymphocytes # Monocytes # PT INR APTT ABG pH ABG pCO2 ABG pO2 ABG HCO3 ABG Total CO2 ABG O2 Saturation Sodium Potassium Chloride Carbon Dioxide BUN Creatinine Glucose POC Glucose (mg/dL) 459 H 357 H Plasma Lactic Acid Jose Carlos 2.6 H* Calcium Phosphorus Magnesium Iron TIBC Ferritin AST ALT Troponin I Total Protein Albumin Urine Protein Urine Glucose (UA) Amorphous Sediment Hep Bs Antigen Hep B Core Total Ab 01/16/19 01/16/19 01/16/19 11:35 16:34 20:13 WBC RBC Hgb Hct Neutrophils # Lymphocytes # Monocytes # PT INR APTT ABG pH ABG pCO2 ABG pO2 ABG HCO3 ABG Total CO2 ABG O2 Saturation Sodium Potassium Chloride Carbon Dioxide BUN Creatinine Glucose POC Glucose (mg/dL) 299 H 407 H 313 H Plasma Lactic Acid Jose Carlos Calcium Phosphorus Magnesium Iron TIBC Ferritin AST ALT Troponin I Total Protein Albumin Urine Protein Urine Glucose (UA) Amorphous Sediment Hep Bs Antigen Hep B Core Total Ab 01/16/19 01/17/19 01/17/19 23:32 06:59 11:01 WBC RBC Hgb Hct Neutrophils # Lymphocytes # Monocytes # PT INR APTT ABG pH ABG pCO2 ABG pO2 ABG HCO3 ABG Total CO2 ABG O2 Saturation Sodium Potassium Chloride Carbon Dioxide BUN 49 H Creatinine 2.72 H Glucose 104 H POC Glucose (mg/dL) 152 H 115 H Plasma Lactic Acid Jose Carlos Calcium 7.4 L Phosphorus Magnesium Iron TIBC Ferritin AST ALT Troponin I Total Protein 5.5 L Albumin 2.5 L Urine Protein Urine Glucose (UA) Amorphous Sediment Hep Bs Antigen Hep B Core Total Ab 11/01/17/19 01/17/19 11:01 11:22 16:49 WBC 22.9 H RBC Hgb Hct Neutrophils # 20.2 H Lymphocytes # Monocytes # PT INR APTT ABG pH ABG pCO2 ABG pO2 ABG HCO3 ABG Total CO2 ABG O2 Saturation Sodium Potassium Chloride Carbon Dioxide BUN Creatinine Glucose POC Glucose (mg/dL) 113 H 122 H Plasma Lactic Acid Jose Carlos Calcium Phosphorus Magnesium Iron TIBC Ferritin AST ALT Troponin I Total Protein Albumin Urine Protein Urine Glucose (UA) Amorphous Sediment Hep Bs Antigen Hep B Core Total Ab 01/17/19 01/18/19 01/18/19 20:13 07:48 07:48 WBC 19.2 H RBC Hgb 12.7 L Hct Neutrophils # 16.8 H Lymphocytes # Monocytes # PT INR APTT ABG pH ABG pCO2 ABG pO2 ABG HCO3 ABG Total CO2 ABG O2 Saturation Sodium Potassium Chloride 109 H Carbon Dioxide 20 L BUN 56 H Creatinine 3.55 H Glucose POC Glucose (mg/dL) 153 H Plasma Lactic Acid Jose Carlos Calcium 7.2 L Phosphorus Magnesium Iron TIBC Ferritin AST ALT Troponin I Total Protein 5.4 L Albumin 2.4 L Urine Protein Urine Glucose (UA) Amorphous Sediment Hep Bs Antigen Hep B Core Total Ab 01/18/19 01/18/19 01/18/19 12:55 13:16 14:56 WBC RBC Hgb Hct Neutrophils # Lymphocytes # Monocytes # PT INR APTT ABG pH ABG pCO2 ABG pO2 ABG HCO3 ABG Total CO2 ABG O2 Saturation Sodium Potassium Chloride Carbon Dioxide BUN Creatinine Glucose POC Glucose (mg/dL) 65 L 65 L 119 H Plasma Lactic Acid Jose Carlos Calcium Phosphorus Magnesium Iron TIBC Ferritin AST ALT Troponin I Total Protein Albumin Urine Protein Urine Glucose (UA) Amorphous Sediment Hep Bs Antigen Hep B Core Total Ab 01/18/19 01/18/19 01/18/19 15:15 16:55 17:04 WBC RBC Hgb Hct Neutrophils # Lymphocytes # Monocytes # PT INR APTT ABG pH 7.12 L* 7.25 L ABG pCO2 81 H* 55 H ABG pO2 253 H ABG HCO3 26 H ABG Total CO2 29 H 26 H ABG O2 Saturation 99.6 H Sodium Potassium Chloride Carbon Dioxide BUN Creatinine Glucose POC Glucose (mg/dL) Plasma Lactic Acid Jose Carlos Calcium Phosphorus Magnesium Iron TIBC Ferritin AST ALT Troponin I Total Protein Albumin Urine Protein 1+ H Urine Glucose (UA) 1+ H Amorphous Sediment Few H Hep Bs Antigen Hep B Core Total Ab 01/19/19 01/19/19 01/19/19 00:00 00:02 00:27 WBC RBC Hgb Hct Neutrophils # Lymphocytes # Monocytes # PT INR APTT ABG pH ABG pCO2 ABG pO2 ABG HCO3 ABG Total CO2 ABG O2 Saturation Sodium Potassium Chloride Carbon Dioxide BUN Creatinine Glucose POC Glucose (mg/dL) 28 L 31 L 72 L Plasma Lactic Acid Jose Carlos Calcium Phosphorus Magnesium Iron TIBC Ferritin AST ALT Troponin I Total Protein Albumin Urine Protein Urine Glucose (UA) Amorphous Sediment Hep Bs Antigen Hep B Core Total Ab 01/19/19 01/19/19 01/19/19 04:35 04:35 04:50 WBC 16.1 H RBC 3.98 L Hgb 11.6 L Hct 36.7 L Neutrophils # 13.8 H Lymphocytes # Monocytes # PT INR APTT ABG pH ABG pCO2 ABG pO2 ABG HCO3 ABG Total CO2 ABG O2 Saturation 97.1 H Sodium Potassium Chloride 112 H Carbon Dioxide BUN 58 H Creatinine 3.99 H Glucose 47 L* POC Glucose (mg/dL) Plasma Lactic Acid Jose Carlos Calcium 6.8 L Phosphorus Magnesium Iron TIBC Ferritin AST ALT Troponin I Total Protein 4.9 L Albumin 2.2 L Urine Protein Urine Glucose (UA) Amorphous Sediment Hep Bs Antigen Hep B Core Total Ab 01/19/19 01/19/19 01/19/19 08:10 08:27 12:07 WBC RBC Hgb Hct Neutrophils # Lymphocytes # Monocytes # PT INR APTT ABG pH ABG pCO2 ABG pO2 ABG HCO3 ABG Total CO2 ABG O2 Saturation Sodium Potassium Chloride Carbon Dioxide BUN Creatinine Glucose POC Glucose (mg/dL) 69 L 102 H 110 H Plasma Lactic Acid Jose Carlos Calcium Phosphorus Magnesium Iron TIBC Ferritin AST ALT Troponin I Total Protein Albumin Urine Protein Urine Glucose (UA) Amorphous Sediment Hep Bs Antigen Hep B Core Total Ab 01/19/19 01/20/19 01/20/19 18:32 00:09 04:44 WBC RBC Hgb Hct Neutrophils # Lymphocytes # Monocytes # PT INR APTT ABG pH ABG pCO2 ABG pO2 ABG HCO3 ABG Total CO2 ABG O2 Saturation 97.4 H Sodium Potassium Chloride Carbon Dioxide BUN Creatinine Glucose POC Glucose (mg/dL) 151 H 126 H Plasma Lactic Acid Jose Carlos Calcium Phosphorus Magnesium Iron TIBC Ferritin AST ALT Troponin I Total Protein Albumin Urine Protein Urine Glucose (UA) Amorphous Sediment Hep Bs Antigen Hep B Core Total Ab 01/20/19 01/20/19 01/20/19 05:15 05:15 05:41 WBC 16.0 H RBC 3.71 L Hgb 11.2 L Hct 34.3 L Neutrophils # 14.2 H Lymphocytes # 0.7 L Monocytes # PT INR APTT ABG pH ABG pCO2 ABG pO2 ABG HCO3 ABG Total CO2 ABG O2 Saturation Sodium Potassium Chloride 112 H Carbon Dioxide 21 L BUN 56 H Creatinine 4.17 H Glucose 168 H POC Glucose (mg/dL) 154 H Plasma Lactic Acid Jose Carlos Calcium 6.8 L Phosphorus Magnesium Iron TIBC Ferritin AST ALT Troponin I Total Protein 4.8 L Albumin 2.1 L Urine Protein Urine Glucose (UA) Amorphous Sediment Hep Bs Antigen Hep B Core Total Ab 01/20/19 01/20/19 01/20/19 11:53 17:39 23:52 WBC RBC Hgb Hct Neutrophils # Lymphocytes # Monocytes # PT INR APTT ABG pH ABG pCO2 ABG pO2 ABG HCO3 ABG Total CO2 ABG O2 Saturation Sodium Potassium Chloride Carbon Dioxide BUN Creatinine Glucose POC Glucose (mg/dL) 195 H 192 H 198 H Plasma Lactic Acid Jose Carlos Calcium Phosphorus Magnesium Iron TIBC Ferritin AST ALT Troponin I Total Protein Albumin Urine Protein Urine Glucose (UA) Amorphous Sediment Hep Bs Antigen Hep B Core Total Ab 01/21/19 01/21/19 01/21/19 04:06 04:10 04:10 WBC 14.1 H RBC 3.52 L Hgb 10.7 L Hct 32.3 L Neutrophils # 12.2 H Lymphocytes # 0.9 L Monocytes # PT INR APTT ABG pH 7.33 L ABG pCO2 ABG pO2 ABG HCO3 20 L ABG Total CO2 ABG O2 Saturation 97.4 H Sodium Potassium Chloride 113 H Carbon Dioxide 20 L BUN 57 H Creatinine 4.35 H Glucose 192 H POC Glucose (mg/dL) Plasma Lactic Acid Jose Carlos Calcium 7.0 L Phosphorus 5.9 H Magnesium Iron TIBC Ferritin AST ALT 17 L Troponin I Total Protein 4.7 L Albumin 2.1 L Urine Protein Urine Glucose (UA) Amorphous Sediment Hep Bs Antigen Hep B Core Total Ab 01/21/19 01/21/19 01/21/19 06:02 12:01 17:08 WBC RBC Hgb Hct Neutrophils # Lymphocytes # Monocytes # PT INR APTT ABG pH ABG pCO2 ABG pO2 ABG HCO3 ABG Total CO2 ABG O2 Saturation Sodium Potassium Chloride Carbon Dioxide BUN Creatinine Glucose POC Glucose (mg/dL) 186 H 184 H 177 H Plasma Lactic Acid Jose Carlos Calcium Phosphorus Magnesium Iron TIBC Ferritin AST ALT Troponin I Total Protein Albumin Urine Protein Urine Glucose (UA) Amorphous Sediment Hep Bs Antigen Hep B Core Total Ab 01/21/19 01/22/19 01/22/19 23:20 03:49 04:20 WBC 14.2 H RBC 3.60 L Hgb 10.8 L Hct 33.5 L Neutrophils # 12.5 H Lymphocytes # 0.7 L Monocytes # PT INR APTT ABG pH 7.32 L ABG pCO2 ABG pO2 ABG HCO3 19 L ABG Total CO2 ABG O2 Saturation Sodium Potassium Chloride Carbon Dioxide BUN Creatinine Glucose POC Glucose (mg/dL) 189 H Plasma Lactic Acid Jose Carlos Calcium Phosphorus Magnesium Iron TIBC Ferritin AST ALT Troponin I Total Protein Albumin Urine Protein Urine Glucose (UA) Amorphous Sediment Hep Bs Antigen Hep B Core Total Ab 01/22/19 01/22/19 01/22/19 04:20 06:09 11:35 WBC RBC Hgb Hct Neutrophils # Lymphocytes # Monocytes # PT INR APTT ABG pH ABG pCO2 ABG pO2 ABG HCO3 ABG Total CO2 ABG O2 Saturation Sodium Potassium Chloride 113 H Carbon Dioxide 21 L BUN 60 H Creatinine 4.84 H Glucose 232 H POC Glucose (mg/dL) 236 H 184 H Plasma Lactic Acid Jose Carlos Calcium 7.4 L Phosphorus 6.6 H Magnesium Iron TIBC Ferritin AST ALT 20 L Troponin I Total Protein 5.0 L Albumin 2.2 L Urine Protein Urine Glucose (UA) Amorphous Sediment Hep Bs Antigen Hep B Core Total Ab 01/22/19 01/22/19 01/22/19 18:21 19:55 23:49 WBC 13.7 H RBC 3.47 L Hgb 10.4 L Hct 32.1 L Neutrophils # 12.0 H Lymphocytes # 0.7 L Monocytes # PT INR APTT ABG pH ABG pCO2 ABG pO2 ABG HCO3 ABG Total CO2 ABG O2 Saturation Sodium Potassium Chloride Carbon Dioxide BUN Creatinine Glucose POC Glucose (mg/dL) 180 H 182 H Plasma Lactic Acid Jose Carlos Calcium Phosphorus Magnesium Iron TIBC Ferritin AST ALT Troponin I Total Protein Albumin Urine Protein Urine Glucose (UA) Amorphous Sediment Hep Bs Antigen Hep B Core Total Ab 01/23/19 01/23/19 01/23/19 04:10 04:10 05:37 WBC 13.2 H RBC 3.54 L Hgb 10.3 L Hct 32.7 L Neutrophils # 11.3 H Lymphocytes # 0.8 L Monocytes # PT INR APTT ABG pH 7.32 L ABG pCO2 ABG pO2 79 L ABG HCO3 19 L ABG Total CO2 ABG O2 Saturation Sodium Potassium Chloride 114 H Carbon Dioxide 19 L BUN 60 H Creatinine 4.82 H Glucose 206 H POC Glucose (mg/dL) Plasma Lactic Acid Jose Carlos Calcium 7.4 L Phosphorus 7.0 H Magnesium Iron TIBC Ferritin AST ALT Troponin I Total Protein 5.0 L Albumin 2.1 L Urine Protein Urine Glucose (UA) Amorphous Sediment Hep Bs Antigen Hep B Core Total Ab 01/23/19 01/23/19 01/23/19 06:06 12:16 15:01 WBC RBC Hgb Hct Neutrophils # Lymphocytes # Monocytes # PT INR APTT ABG pH ABG pCO2 ABG pO2 ABG HCO3 ABG Total CO2 ABG O2 Saturation Sodium Potassium Chloride Carbon Dioxide BUN Creatinine Glucose POC Glucose (mg/dL) 202 H 252 H 262 H Plasma Lactic Acid Jose Carlos Calcium Phosphorus Magnesium Iron TIBC Ferritin AST ALT Troponin I Total Protein Albumin Urine Protein Urine Glucose (UA) Amorphous Sediment Hep Bs Antigen Hep B Core Total Ab 01/23/19 01/23/19 01/23/19 15:27 15:59 17:03 WBC RBC Hgb Hct Neutrophils # Lymphocytes # Monocytes # PT INR APTT ABG pH ABG pCO2 ABG pO2 ABG HCO3 ABG Total CO2 ABG O2 Saturation Sodium Potassium Chloride Carbon Dioxide BUN Creatinine Glucose POC Glucose (mg/dL) 280 H 184 H 236 H Plasma Lactic Acid Jose Carlos Calcium Phosphorus Magnesium Iron TIBC Ferritin AST ALT Troponin I Total Protein Albumin Urine Protein Urine Glucose (UA) Amorphous Sediment Hep Bs Antigen Hep B Core Total Ab 01/23/19 01/23/19 01/23/19 18:00 19:08 20:05 WBC RBC Hgb Hct Neutrophils # Lymphocytes # Monocytes # PT INR APTT ABG pH ABG pCO2 ABG pO2 ABG HCO3 ABG Total CO2 ABG O2 Saturation Sodium Potassium Chloride Carbon Dioxide BUN Creatinine Glucose POC Glucose (mg/dL) 207 H 200 H 180 H Plasma Lactic Acid Jose Carlos Calcium Phosphorus Magnesium Iron TIBC Ferritin AST ALT Troponin I Total Protein Albumin Urine Protein Urine Glucose (UA) Amorphous Sediment Hep Bs Antigen Hep B Core Total Ab 01/23/19 01/23/19 01/23/19 21:00 22:05 22:59 WBC RBC Hgb Hct Neutrophils # Lymphocytes # Monocytes # PT INR APTT ABG pH ABG pCO2 ABG pO2 ABG HCO3 ABG Total CO2 ABG O2 Saturation Sodium Potassium Chloride Carbon Dioxide BUN Creatinine Glucose POC Glucose (mg/dL) 180 H 159 H 146 H Plasma Lactic Acid Jose Carlos Calcium Phosphorus Magnesium Iron TIBC Ferritin AST ALT Troponin I Total Protein Albumin Urine Protein Urine Glucose (UA) Amorphous Sediment Hep Bs Antigen Hep B Core Total Ab 01/23/19 01/24/19 01/24/19 23:52 01:20 01:58 WBC RBC Hgb Hct Neutrophils # Lymphocytes # Monocytes # PT INR APTT ABG pH ABG pCO2 ABG pO2 ABG HCO3 ABG Total CO2 ABG O2 Saturation Sodium Potassium Chloride Carbon Dioxide BUN Creatinine Glucose POC Glucose (mg/dL) 142 H 139 H 143 H Plasma Lactic Acid Jose Carlos Calcium Phosphorus Magnesium Iron TIBC Ferritin AST ALT Troponin I Total Protein Albumin Urine Protein Urine Glucose (UA) Amorphous Sediment Hep Bs Antigen Hep B Core Total Ab 01/24/19 01/24/19 01/24/19 03:03 04:14 04:50 WBC RBC Hgb Hct Neutrophils # Lymphocytes # Monocytes # PT INR APTT ABG pH ABG pCO2 ABG pO2 ABG HCO3 ABG Total CO2 ABG O2 Saturation Sodium Potassium Chloride 116 H Carbon Dioxide 18 L BUN 68 H Creatinine 5.15 H Glucose 166 H POC Glucose (mg/dL) 166 H 155 H Plasma Lactic Acid Jose Carlos Calcium 7.6 L Phosphorus Magnesium Iron TIBC Ferritin AST ALT Troponin I Total Protein Albumin Urine Protein Urine Glucose (UA) Amorphous Sediment Hep Bs Antigen Hep B Core Total Ab 01/24/19 01/24/19 01/24/19 04:50 04:57 06:06 WBC 14.1 H RBC 3.20 L Hgb 9.6 L Hct 29.6 L Neutrophils # Lymphocytes # Monocytes # PT INR APTT ABG pH ABG pCO2 ABG pO2 ABG HCO3 ABG Total CO2 ABG O2 Saturation Sodium Potassium Chloride Carbon Dioxide BUN Creatinine Glucose POC Glucose (mg/dL) 173 H 158 H Plasma Lactic Acid Jose Carlos Calcium Phosphorus Magnesium Iron TIBC Ferritin AST ALT Troponin I Total Protein Albumin Urine Protein Urine Glucose (UA) Amorphous Sediment Hep Bs Antigen Hep B Core Total Ab 01/24/19 01/24/19 01/24/19 06:59 07:51 08:53 WBC RBC Hgb Hct Neutrophils # Lymphocytes # Monocytes # PT INR APTT ABG pH 7.31 L ABG pCO2 ABG pO2 111 H ABG HCO3 19 L ABG Total CO2 ABG O2 Saturation 98.2 H Sodium Potassium Chloride Carbon Dioxide BUN Creatinine Glucose POC Glucose (mg/dL) 159 H 170 H Plasma Lactic Acid Jose Carlos Calcium Phosphorus Magnesium Iron TIBC Ferritin AST ALT Troponin I Total Protein Albumin Urine Protein Urine Glucose (UA) Amorphous Sediment Hep Bs Antigen Hep B Core Total Ab 01/24/19 01/24/19 01/24/19 10:50 12:04 12:52 WBC RBC Hgb Hct Neutrophils # Lymphocytes # Monocytes # PT INR APTT ABG pH ABG pCO2 ABG pO2 ABG HCO3 ABG Total CO2 ABG O2 Saturation Sodium Potassium Chloride Carbon Dioxide BUN Creatinine Glucose POC Glucose (mg/dL) 162 H 174 H 167 H Plasma Lactic Acid Jose Carlos Calcium Phosphorus Magnesium Iron TIBC Ferritin AST ALT Troponin I Total Protein Albumin Urine Protein Urine Glucose (UA) Amorphous Sediment Hep Bs Antigen Hep B Core Total Ab 01/24/19 01/24/19 01/24/19 14:10 15:07 17:21 WBC RBC Hgb Hct Neutrophils # Lymphocytes # Monocytes # PT INR APTT ABG pH ABG pCO2 ABG pO2 ABG HCO3 ABG Total CO2 ABG O2 Saturation Sodium Potassium Chloride Carbon Dioxide BUN Creatinine Glucose POC Glucose (mg/dL) 171 H 179 H 158 H Plasma Lactic Acid Jose Carlos Calcium Phosphorus Magnesium Iron TIBC Ferritin AST ALT Troponin I Total Protein Albumin Urine Protein Urine Glucose (UA) Amorphous Sediment Hep Bs Antigen Hep B Core Total Ab 01/24/19 01/24/19 01/24/19 19:05 20:03 22:12 WBC RBC Hgb Hct Neutrophils # Lymphocytes # Monocytes # PT INR APTT ABG pH ABG pCO2 ABG pO2 ABG HCO3 ABG Total CO2 ABG O2 Saturation Sodium Potassium Chloride Carbon Dioxide BUN Creatinine Glucose POC Glucose (mg/dL) 177 H 175 H 182 H Plasma Lactic Acid Jose Carlos Calcium Phosphorus Magnesium Iron TIBC Ferritin AST ALT Troponin I Total Protein Albumin Urine Protein Urine Glucose (UA) Amorphous Sediment Hep Bs Antigen Hep B Core Total Ab 01/24/19 01/25/19 01/25/19 23:49 01:59 03:33 WBC RBC Hgb Hct Neutrophils # Lymphocytes # Monocytes # PT INR APTT ABG pH 7.30 L ABG pCO2 ABG pO2 ABG HCO3 19 L ABG Total CO2 ABG O2 Saturation 97.6 H Sodium Potassium Chloride Carbon Dioxide BUN Creatinine Glucose POC Glucose (mg/dL) 169 H 153 H Plasma Lactic Acid Jose Carlos Calcium Phosphorus Magnesium Iron TIBC Ferritin AST ALT Troponin I Total Protein Albumin Urine Protein Urine Glucose (UA) Amorphous Sediment Hep Bs Antigen Hep B Core Total Ab 01/25/19 01/25/19 01/25/19 04:12 04:30 05:25 WBC 11.3 H RBC 3.31 L Hgb 9.7 L Hct 30.7 L Neutrophils # Lymphocytes # Monocytes # PT INR APTT ABG pH ABG pCO2 ABG pO2 ABG HCO3 ABG Total CO2 ABG O2 Saturation Sodium Potassium Chloride 119 H Carbon Dioxide 17 L BUN 73 H Creatinine 4.44 H Glucose 156 H POC Glucose (mg/dL) 159 H Plasma Lactic Acid Jose Carlos Calcium 6.8 L Phosphorus Magnesium Iron TIBC Ferritin AST ALT Troponin I Total Protein Albumin Urine Protein Urine Glucose (UA) Amorphous Sediment Hep Bs Antigen Hep B Core Total Ab 01/25/19 01/25/19 01/25/19 05:49 08:52 11:17 WBC RBC Hgb Hct Neutrophils # Lymphocytes # Monocytes # PT INR APTT ABG pH ABG pCO2 ABG pO2 ABG HCO3 ABG Total CO2 ABG O2 Saturation Sodium Potassium Chloride Carbon Dioxide BUN Creatinine Glucose POC Glucose (mg/dL) 178 H 189 H 195 H Plasma Lactic Acid Jose Carlos Calcium Phosphorus Magnesium Iron TIBC Ferritin AST ALT Troponin I Total Protein Albumin Urine Protein Urine Glucose (UA) Amorphous Sediment Hep Bs Antigen Hep B Core Total Ab 01/25/19 01/25/19 01/25/19 12:04 12:51 13:55 WBC RBC Hgb Hct Neutrophils # Lymphocytes # Monocytes # PT INR APTT ABG pH ABG pCO2 ABG pO2 ABG HCO3 ABG Total CO2 ABG O2 Saturation Sodium Potassium Chloride Carbon Dioxide BUN Creatinine Glucose POC Glucose (mg/dL) 193 H 163 H 189 H Plasma Lactic Acid Jose Carlos Calcium Phosphorus Magnesium Iron TIBC Ferritin AST ALT Troponin I Total Protein Albumin Urine Protein Urine Glucose (UA) Amorphous Sediment Hep Bs Antigen Hep B Core Total Ab 01/25/19 01/25/19 01/25/19 15:03 15:04 16:05 WBC RBC Hgb Hct Neutrophils # Lymphocytes # Monocytes # PT INR APTT ABG pH ABG pCO2 ABG pO2 ABG HCO3 ABG Total CO2 ABG O2 Saturation Sodium Potassium Chloride Carbon Dioxide BUN Creatinine Glucose POC Glucose (mg/dL) 213 H 182 H 171 H Plasma Lactic Acid Jose Carlos Calcium Phosphorus Magnesium Iron TIBC Ferritin AST ALT Troponin I Total Protein Albumin Urine Protein Urine Glucose (UA) Amorphous Sediment Hep Bs Antigen Hep B Core Total Ab 01/25/19 01/25/19 01/25/19 17:25 18:38 20:23 WBC RBC Hgb Hct Neutrophils # Lymphocytes # Monocytes # PT INR APTT ABG pH ABG pCO2 ABG pO2 ABG HCO3 ABG Total CO2 ABG O2 Saturation Sodium Potassium Chloride Carbon Dioxide BUN Creatinine Glucose POC Glucose (mg/dL) 180 H 194 H 163 H Plasma Lactic Acid Jose Carlos Calcium Phosphorus Magnesium Iron TIBC Ferritin AST ALT Troponin I Total Protein Albumin Urine Protein Urine Glucose (UA) Amorphous Sediment Hep Bs Antigen Hep B Core Total Ab 01/25/19 01/25/19 01/26/19 22:09 23:48 02:47 WBC RBC Hgb Hct Neutrophils # Lymphocytes # Monocytes # PT INR APTT ABG pH ABG pCO2 ABG pO2 ABG HCO3 ABG Total CO2 ABG O2 Saturation Sodium Potassium Chloride Carbon Dioxide BUN Creatinine Glucose POC Glucose (mg/dL) 156 H 171 H 164 H Plasma Lactic Acid Jose Carlos Calcium Phosphorus Magnesium Iron TIBC Ferritin AST ALT Troponin I Total Protein Albumin Urine Protein Urine Glucose (UA) Amorphous Sediment Hep Bs Antigen Hep B Core Total Ab 01/26/19 01/26/19 01/26/19 03:56 04:37 04:40 WBC RBC Hgb Hct Neutrophils # Lymphocytes # Monocytes # PT INR APTT ABG pH 7.27 L ABG pCO2 ABG pO2 ABG HCO3 19 L ABG Total CO2 ABG O2 Saturation 97.6 H Sodium Potassium Chloride 116 H Carbon Dioxide 20 L BUN 84 H Creatinine 5.22 H Glucose 159 H POC Glucose (mg/dL) 156 H Plasma Lactic Acid Jose Carlos Calcium 7.7 L Phosphorus Magnesium Iron TIBC Ferritin AST ALT Troponin I Total Protein Albumin Urine Protein Urine Glucose (UA) Amorphous Sediment Hep Bs Antigen Hep B Core Total Ab 01/26/19 01/26/19 01/26/19 04:40 04:40 05:51 WBC 12.0 H RBC 3.22 L Hgb 9.5 L Hct 29.5 L Neutrophils # Lymphocytes # Monocytes # PT INR APTT ABG pH ABG pCO2 ABG pO2 ABG HCO3 ABG Total CO2 ABG O2 Saturation Sodium Potassium Chloride Carbon Dioxide BUN Creatinine Glucose POC Glucose (mg/dL) 149 H Plasma Lactic Acid Jose Carlos Calcium Phosphorus Magnesium Iron TIBC Ferritin AST ALT Troponin I Total Protein Albumin Urine Protein Urine Glucose (UA) Amorphous Sediment Hep Bs Antigen Reactive H Hep B Core Total Ab 01/26/19 01/26/19 01/26/19 08:31 10:00 11:48 WBC RBC Hgb Hct Neutrophils # Lymphocytes # Monocytes # PT INR APTT ABG pH ABG pCO2 ABG pO2 ABG HCO3 ABG Total CO2 ABG O2 Saturation Sodium Potassium Chloride Carbon Dioxide BUN Creatinine Glucose POC Glucose (mg/dL) 135 H 131 H 129 H Plasma Lactic Acid Jose Carlos Calcium Phosphorus Magnesium Iron TIBC Ferritin AST ALT Troponin I Total Protein Albumin Urine Protein Urine Glucose (UA) Amorphous Sediment Hep Bs Antigen Hep B Core Total Ab 01/26/19 01/26/19 01/26/19 14:03 15:06 16:15 WBC RBC Hgb Hct Neutrophils # Lymphocytes # Monocytes # PT INR APTT ABG pH ABG pCO2 ABG pO2 ABG HCO3 ABG Total CO2 ABG O2 Saturation Sodium Potassium Chloride Carbon Dioxide BUN Creatinine Glucose POC Glucose (mg/dL) 154 H 166 H 147 H Plasma Lactic Acid Jose Carlos Calcium Phosphorus Magnesium Iron TIBC Ferritin AST ALT Troponin I Total Protein Albumin Urine Protein Urine Glucose (UA) Amorphous Sediment Hep Bs Antigen Hep B Core Total Ab 01/26/19 01/26/19 01/26/19 18:30 20:06 22:07 WBC RBC Hgb Hct Neutrophils # Lymphocytes # Monocytes # PT INR APTT ABG pH ABG pCO2 ABG pO2 ABG HCO3 ABG Total CO2 ABG O2 Saturation Sodium Potassium Chloride Carbon Dioxide BUN Creatinine Glucose POC Glucose (mg/dL) 153 H 145 H 170 H Plasma Lactic Acid Jose Carlos Calcium Phosphorus Magnesium Iron TIBC Ferritin AST ALT Troponin I Total Protein Albumin Urine Protein Urine Glucose (UA) Amorphous Sediment Hep Bs Antigen Hep B Core Total Ab 01/27/19 01/27/19 01/27/19 00:27 02:07 03:55 WBC RBC Hgb Hct Neutrophils # Lymphocytes # Monocytes # PT INR APTT ABG pH 7.31 L ABG pCO2 ABG pO2 112 H ABG HCO3 20 L ABG Total CO2 ABG O2 Saturation 98.2 H Sodium Potassium Chloride Carbon Dioxide BUN Creatinine Glucose POC Glucose (mg/dL) 140 H 146 H Plasma Lactic Acid Jose Carlos Calcium Phosphorus Magnesium Iron TIBC Ferritin AST ALT Troponin I Total Protein Albumin Urine Protein Urine Glucose (UA) Amorphous Sediment Hep Bs Antigen Hep B Core Total Ab 01/27/19 01/27/19 01/27/19 04:28 04:30 04:30 WBC 11.8 H RBC 3.01 L Hgb 8.9 L Hct 27.3 L Neutrophils # 9.6 H Lymphocytes # Monocytes # PT INR APTT ABG pH ABG pCO2 ABG pO2 ABG HCO3 ABG Total CO2 ABG O2 Saturation Sodium Potassium Chloride 112 H Carbon Dioxide 19 L BUN 77 H Creatinine 4.76 H Glucose 147 H POC Glucose (mg/dL) 153 H Plasma Lactic Acid Jose Carlos Calcium 7.6 L Phosphorus Magnesium Iron TIBC Ferritin AST ALT Troponin I Total Protein 5.2 L Albumin 2.2 L Urine Protein Urine Glucose (UA) Amorphous Sediment Hep Bs Antigen Hep B Core Total Ab 01/27/19 01/27/19 01/27/19 06:04 07:55 10:19 WBC RBC Hgb Hct Neutrophils # Lymphocytes # Monocytes # PT INR APTT ABG pH ABG pCO2 ABG pO2 ABG HCO3 ABG Total CO2 ABG O2 Saturation Sodium Potassium Chloride Carbon Dioxide BUN Creatinine Glucose POC Glucose (mg/dL) 144 H 179 H 157 H Plasma Lactic Acid Jose Carlos Calcium Phosphorus Magnesium Iron TIBC Ferritin AST ALT Troponin I Total Protein Albumin Urine Protein Urine Glucose (UA) Amorphous Sediment Hep Bs Antigen Hep B Core Total Ab 01/27/19 01/27/19 01/27/19 11:53 12:22 15:08 WBC RBC Hgb Hct Neutrophils # Lymphocytes # Monocytes # PT INR APTT ABG pH ABG pCO2 ABG pO2 ABG HCO3 ABG Total CO2 ABG O2 Saturation Sodium Potassium Chloride Carbon Dioxide BUN Creatinine Glucose POC Glucose (mg/dL) 172 H 166 H 124 H Plasma Lactic Acid Jose Carlos Calcium Phosphorus Magnesium Iron TIBC Ferritin AST ALT Troponin I Total Protein Albumin Urine Protein Urine Glucose (UA) Amorphous Sediment Hep Bs Antigen Hep B Core Total Ab 01/27/19 01/27/19 01/27/19 16:06 17:19 18:23 WBC RBC Hgb Hct Neutrophils # Lymphocytes # Monocytes # PT INR APTT ABG pH ABG pCO2 ABG pO2 ABG HCO3 ABG Total CO2 ABG O2 Saturation Sodium Potassium Chloride Carbon Dioxide BUN Creatinine Glucose POC Glucose (mg/dL) 139 H 174 H 170 H Plasma Lactic Acid Jose Carlos Calcium Phosphorus Magnesium Iron TIBC Ferritin AST ALT Troponin I Total Protein Albumin Urine Protein Urine Glucose (UA) Amorphous Sediment Hep Bs Antigen Hep B Core Total Ab 01/27/19 01/27/19 01/27/19 20:06 22:04 23:54 WBC RBC Hgb Hct Neutrophils # Lymphocytes # Monocytes # PT INR APTT ABG pH ABG pCO2 ABG pO2 ABG HCO3 ABG Total CO2 ABG O2 Saturation Sodium Potassium Chloride Carbon Dioxide BUN Creatinine Glucose POC Glucose (mg/dL) 176 H 175 H 178 H Plasma Lactic Acid Jose Carlos Calcium Phosphorus Magnesium Iron TIBC Ferritin AST ALT Troponin I Total Protein Albumin Urine Protein Urine Glucose (UA) Amorphous Sediment Hep Bs Antigen Hep B Core Total Ab 01/28/19 01/28/19 01/28/19 02:00 04:10 04:10 WBC 11.9 H RBC 2.98 L Hgb 9.0 L Hct 27.2 L Neutrophils # 9.3 H Lymphocytes # Monocytes # PT INR APTT ABG pH ABG pCO2 ABG pO2 ABG HCO3 ABG Total CO2 ABG O2 Saturation Sodium Potassium Chloride 110 H Carbon Dioxide 20 L BUN 77 H Creatinine 4.44 H Glucose 172 H POC Glucose (mg/dL) 175 H Plasma Lactic Acid Jose Carlos Calcium 7.5 L Phosphorus Magnesium Iron TIBC Ferritin AST ALT Troponin I Total Protein 5.5 L Albumin 2.4 L Urine Protein Urine Glucose (UA) Amorphous Sediment Hep Bs Antigen Hep B Core Total Ab 01/28/19 01/28/19 01/28/19 04:10 05:55 08:06 WBC RBC Hgb Hct Neutrophils # Lymphocytes # Monocytes # PT INR APTT ABG pH ABG pCO2 ABG pO2 ABG HCO3 ABG Total CO2 ABG O2 Saturation Sodium Potassium Chloride Carbon Dioxide BUN Creatinine Glucose POC Glucose (mg/dL) 176 H 178 H 147 H Plasma Lactic Acid Jose Carlos Calcium Phosphorus Magnesium Iron TIBC Ferritin AST ALT Troponin I Total Protein Albumin Urine Protein Urine Glucose (UA) Amorphous Sediment Hep Bs Antigen Hep B Core Total Ab 01/28/19 01/28/19 01/28/19 10:02 10:55 11:57 WBC RBC Hgb Hct Neutrophils # Lymphocytes # Monocytes # PT INR APTT ABG pH 7.25 L ABG pCO2 ABG pO2 ABG HCO3 20 L ABG Total CO2 ABG O2 Saturation Sodium Potassium Chloride Carbon Dioxide BUN Creatinine Glucose POC Glucose (mg/dL) 171 H 208 H Plasma Lactic Acid Jose Carlos Calcium Phosphorus Magnesium Iron TIBC Ferritin AST ALT Troponin I Total Protein Albumin Urine Protein Urine Glucose (UA) Amorphous Sediment Hep Bs Antigen Hep B Core Total Ab 01/28/19 01/28/19 01/28/19 14:07 16:23 16:58 WBC RBC Hgb Hct Neutrophils # Lymphocytes # Monocytes # PT INR APTT ABG pH ABG pCO2 ABG pO2 ABG HCO3 ABG Total CO2 ABG O2 Saturation Sodium Potassium Chloride Carbon Dioxide BUN Creatinine Glucose POC Glucose (mg/dL) 189 H 121 H 173 H Plasma Lactic Acid Jose Carlos Calcium Phosphorus Magnesium Iron TIBC Ferritin AST ALT Troponin I Total Protein Albumin Urine Protein Urine Glucose (UA) Amorphous Sediment Hep Bs Antigen Hep B Core Total Ab 01/28/19 01/28/19 01/28/19 17:50 19:11 19:56 WBC RBC Hgb Hct Neutrophils # Lymphocytes # Monocytes # PT INR APTT ABG pH ABG pCO2 ABG pO2 ABG HCO3 ABG Total CO2 ABG O2 Saturation Sodium Potassium Chloride Carbon Dioxide BUN Creatinine Glucose POC Glucose (mg/dL) 180 H 168 H 153 H Plasma Lactic Acid Jose Cralos Calcium Phosphorus Magnesium Iron TIBC Ferritin AST ALT Troponin I Total Protein Albumin Urine Protein Urine Glucose (UA) Amorphous Sediment Hep Bs Antigen Hep B Core Total Ab 01/28/19 01/28/19 01/29/19 21:56 23:54 02:02 WBC RBC Hgb Hct Neutrophils # Lymphocytes # Monocytes # PT INR APTT ABG pH ABG pCO2 ABG pO2 ABG HCO3 ABG Total CO2 ABG O2 Saturation Sodium Potassium Chloride Carbon Dioxide BUN Creatinine Glucose POC Glucose (mg/dL) 197 H 178 H 191 H Plasma Lactic Acid Jose Carlos Calcium Phosphorus Magnesium Iron TIBC Ferritin AST ALT Troponin I Total Protein Albumin Urine Protein Urine Glucose (UA) Amorphous Sediment Hep Bs Antigen Hep B Core Total Ab 01/29/19 01/29/19 01/29/19 04:03 04:05 04:05 WBC RBC 2.75 L Hgb 8.1 L Hct 24.6 L Neutrophils # 8.4 H Lymphocytes # 0.9 L Monocytes # PT INR APTT ABG pH ABG pCO2 ABG pO2 ABG HCO3 ABG Total CO2 ABG O2 Saturation Sodium Potassium Chloride 109 H Carbon Dioxide 18 L BUN 89 H Creatinine 4.80 H Glucose 172 H POC Glucose (mg/dL) 182 H Plasma Lactic Acid Jose Carlos Calcium 7.4 L Phosphorus Magnesium Iron TIBC Ferritin AST ALT Troponin I Total Protein 5.3 L Albumin 2.3 L Urine Protein Urine Glucose (UA) Amorphous Sediment Hep Bs Antigen Hep B Core Total Ab 01/29/19 01/29/19 01/29/19 05:53 06:51 08:04 WBC RBC Hgb Hct Neutrophils # Lymphocytes # Monocytes # PT INR APTT ABG pH ABG pCO2 ABG pO2 ABG HCO3 ABG Total CO2 ABG O2 Saturation Sodium Potassium Chloride Carbon Dioxide BUN Creatinine Glucose POC Glucose (mg/dL) 134 H 151 H 136 H Plasma Lactic Acid Jose Carlos Calcium Phosphorus Magnesium Iron TIBC Ferritin AST ALT Troponin I Total Protein Albumin Urine Protein Urine Glucose (UA) Amorphous Sediment Hep Bs Antigen Hep B Core Total Ab 01/29/19 01/29/19 01/29/19 10:05 10:56 12:07 WBC RBC Hgb Hct Neutrophils # Lymphocytes # Monocytes # PT INR APTT ABG pH ABG pCO2 ABG pO2 ABG HCO3 ABG Total CO2 ABG O2 Saturation Sodium Potassium Chloride Carbon Dioxide BUN Creatinine Glucose POC Glucose (mg/dL) 148 H 164 H 128 H Plasma Lactic Acid Jose Carlos Calcium Phosphorus Magnesium Iron TIBC Ferritin AST ALT Troponin I Total Protein Albumin Urine Protein Urine Glucose (UA) Amorphous Sediment Hep Bs Antigen Hep B Core Total Ab 01/29/19 01/29/19 01/29/19 15:11 17:41 18:10 WBC RBC Hgb Hct Neutrophils # Lymphocytes # Monocytes # PT INR APTT ABG pH ABG pCO2 ABG pO2 ABG HCO3 ABG Total CO2 ABG O2 Saturation Sodium Potassium Chloride Carbon Dioxide BUN Creatinine Glucose POC Glucose (mg/dL) 159 H 166 H 170 H Plasma Lactic Acid Jose Carlos Calcium Phosphorus Magnesium Iron TIBC Ferritin AST ALT Troponin I Total Protein Albumin Urine Protein Urine Glucose (UA) Amorphous Sediment Hep Bs Antigen Hep B Core Total Ab 01/29/19 01/29/19 01/29/19 19:12 20:04 21:05 WBC RBC Hgb Hct Neutrophils # Lymphocytes # Monocytes # PT INR APTT ABG pH ABG pCO2 ABG pO2 ABG HCO3 ABG Total CO2 ABG O2 Saturation Sodium Potassium Chloride Carbon Dioxide BUN Creatinine Glucose POC Glucose (mg/dL) 164 H 161 H 131 H Plasma Lactic Acid Jose Carlos Calcium Phosphorus Magnesium Iron TIBC Ferritin AST ALT Troponin I Total Protein Albumin Urine Protein Urine Glucose (UA) Amorphous Sediment Hep Bs Antigen Hep B Core Total Ab 01/29/19 01/29/19 01/30/19 22:03 23:01 00:12 WBC RBC Hgb Hct Neutrophils # Lymphocytes # Monocytes # PT INR APTT ABG pH ABG pCO2 ABG pO2 ABG HCO3 ABG Total CO2 ABG O2 Saturation Sodium Potassium Chloride Carbon Dioxide BUN Creatinine Glucose POC Glucose (mg/dL) 142 H 142 H 139 H Plasma Lactic Acid Jose Carlos Calcium Phosphorus Magnesium Iron TIBC Ferritin AST ALT Troponin I Total Protein Albumin Urine Protein Urine Glucose (UA) Amorphous Sediment Hep Bs Antigen Hep B Core Total Ab 01/30/19 01/30/19 01/30/19 01:13 02:08 03:10 WBC RBC Hgb Hct Neutrophils # Lymphocytes # Monocytes # PT INR APTT ABG pH ABG pCO2 ABG pO2 ABG HCO3 ABG Total CO2 ABG O2 Saturation Sodium Potassium Chloride Carbon Dioxide BUN Creatinine Glucose POC Glucose (mg/dL) 147 H 134 H 144 H Plasma Lactic Acid Jose Carlos Calcium Phosphorus Magnesium Iron TIBC Ferritin AST ALT Troponin I Total Protein Albumin Urine Protein Urine Glucose (UA) Amorphous Sediment Hep Bs Antigen Hep B Core Total Ab 01/30/19 01/30/19 01/30/19 04:00 04:06 04:30 WBC 11.4 H RBC 2.64 L Hgb 7.8 L Hct 23.2 L Neutrophils # 9.2 H Lymphocytes # Monocytes # PT INR APTT ABG pH ABG pCO2 ABG pO2 ABG HCO3 ABG Total CO2 ABG O2 Saturation Sodium Potassium Chloride Carbon Dioxide BUN Creatinine Glucose POC Glucose (mg/dL) 146 H Plasma Lactic Acid Jose Carlos Calcium Phosphorus 8.6 H Magnesium Iron TIBC Ferritin AST ALT Troponin I Total Protein Albumin Urine Protein Urine Glucose (UA) Amorphous Sediment Hep Bs Antigen Hep B Core Total Ab 01/30/19 01/30/19 01/30/19 04:30 05:07 06:21 WBC RBC Hgb Hct Neutrophils # Lymphocytes # Monocytes # PT INR APTT ABG pH ABG pCO2 ABG pO2 ABG HCO3 ABG Total CO2 ABG O2 Saturation Sodium 135 L Potassium Chloride Carbon Dioxide 19 L BUN 60 H Creatinine 3.81 H Glucose 152 H POC Glucose (mg/dL) 163 H 157 H Plasma Lactic Acid Jose Carlos Calcium 7.6 L Phosphorus Magnesium Iron TIBC Ferritin AST ALT Troponin I Total Protein 5.5 L Albumin 2.4 L Urine Protein Urine Glucose (UA) Amorphous Sediment Hep Bs Antigen Hep B Core Total Ab 01/30/19 01/30/19 01/30/19 10:59 12:07 17:29 WBC RBC Hgb Hct Neutrophils # Lymphocytes # Monocytes # PT INR APTT ABG pH ABG pCO2 ABG pO2 137 H ABG HCO3 ABG Total CO2 ABG O2 Saturation 98.9 H Sodium Potassium Chloride Carbon Dioxide BUN Creatinine Glucose POC Glucose (mg/dL) 237 H 216 H Plasma Lactic Acid Jose Carlos Calcium Phosphorus Magnesium Iron TIBC Ferritin AST ALT Troponin I Total Protein Albumin Urine Protein Urine Glucose (UA) Amorphous Sediment Hep Bs Antigen Hep B Core Total Ab 01/30/19 01/31/19 01/31/19 23:54 04:51 04:54 WBC RBC 2.68 L Hgb 7.9 L Hct 23.5 L Neutrophils # Lymphocytes # Monocytes # PT INR APTT ABG pH ABG pCO2 34 L ABG pO2 ABG HCO3 ABG Total CO2 ABG O2 Saturation 98.1 H Sodium Potassium Chloride Carbon Dioxide BUN Creatinine Glucose POC Glucose (mg/dL) 205 H Plasma Lactic Acid Jose Carlos Calcium Phosphorus Magnesium Iron TIBC Ferritin AST ALT Troponin I Total Protein Albumin Urine Protein Urine Glucose (UA) Amorphous Sediment Hep Bs Antigen Hep B Core Total Ab 01/31/19 01/31/19 01/31/19 04:54 04:59 04:59 WBC RBC Hgb Hct Neutrophils # Lymphocytes # Monocytes # PT INR APTT ABG pH ABG pCO2 ABG pO2 ABG HCO3 ABG Total CO2 ABG O2 Saturation Sodium 134 L Potassium Chloride Carbon Dioxide 21 L BUN 54 H Creatinine 3.42 H Glucose 222 H POC Glucose (mg/dL) Plasma Lactic Acid Jose Carlos Calcium 7.7 L Phosphorus Magnesium Iron TIBC Ferritin AST ALT Troponin I Total Protein 5.5 L Albumin 2.5 L Urine Protein Urine Glucose (UA) Amorphous Sediment Hep Bs Antigen Reactive H Hep B Core Total Ab Reactive H 01/31/19 01/31/19 01/31/19 05:55 08:24 11:58 WBC RBC Hgb Hct Neutrophils # Lymphocytes # Monocytes # PT INR APTT ABG pH ABG pCO2 ABG pO2 ABG HCO3 ABG Total CO2 ABG O2 Saturation Sodium Potassium Chloride Carbon Dioxide BUN Creatinine Glucose POC Glucose (mg/dL) 229 H 206 H 194 H Plasma Lactic Acid Jose Carlos Calcium Phosphorus Magnesium Iron TIBC Ferritin AST ALT Troponin I Total Protein Albumin Urine Protein Urine Glucose (UA) Amorphous Sediment Hep Bs Antigen Hep B Core Total Ab 01/31/19 01/31/19 01/31/19 12:32 16:04 20:05 WBC RBC Hgb Hct Neutrophils # Lymphocytes # Monocytes # PT INR APTT ABG pH ABG pCO2 ABG pO2 ABG HCO3 ABG Total CO2 ABG O2 Saturation 97.2 H Sodium Potassium Chloride Carbon Dioxide BUN Creatinine Glucose POC Glucose (mg/dL) 152 H 168 H Plasma Lactic Acid Jose Carlos Calcium Phosphorus Magnesium Iron TIBC Ferritin AST ALT Troponin I Total Protein Albumin Urine Protein Urine Glucose (UA) Amorphous Sediment Hep Bs Antigen Hep B Core Total Ab 02/01/19 02/01/19 02/01/19 00:05 04:12 04:25 WBC RBC 2.81 L Hgb 8.2 L Hct 24.5 L Neutrophils # Lymphocytes # Monocytes # PT INR APTT ABG pH ABG pCO2 ABG pO2 ABG HCO3 ABG Total CO2 ABG O2 Saturation Sodium Potassium Chloride Carbon Dioxide BUN Creatinine Glucose POC Glucose (mg/dL) 191 H 174 H Plasma Lactic Acid Jose Carlos Calcium Phosphorus Magnesium Iron TIBC Ferritin AST ALT Troponin I Total Protein Albumin Urine Protein Urine Glucose (UA) Amorphous Sediment Hep Bs Antigen Hep B Core Total Ab 02/01/19 02/01/19 02/01/19 04:25 07:59 11:45 WBC RBC Hgb Hct Neutrophils # Lymphocytes # Monocytes # PT INR APTT ABG pH ABG pCO2 ABG pO2 ABG HCO3 ABG Total CO2 ABG O2 Saturation Sodium 133 L Potassium Chloride Carbon Dioxide 21 L BUN 44 H Creatinine 2.90 H Glucose 193 H POC Glucose (mg/dL) 179 H 151 H Plasma Lactic Acid Jose Carlos Calcium 7.8 L Phosphorus Magnesium Iron TIBC Ferritin AST ALT Troponin I Total Protein 5.8 L Albumin 2.5 L Urine Protein Urine Glucose (UA) Amorphous Sediment Hep Bs Antigen Hep B Core Total Ab 02/01/19 02/01/19 02/01/19 15:42 17:45 19:51 WBC RBC Hgb Hct Neutrophils # Lymphocytes # Monocytes # PT INR APTT ABG pH ABG pCO2 ABG pO2 ABG HCO3 ABG Total CO2 ABG O2 Saturation Sodium Potassium Chloride Carbon Dioxide BUN Creatinine Glucose POC Glucose (mg/dL) 169 H 181 H 176 H Plasma Lactic Acid Jose Carlos Calcium Phosphorus Magnesium Iron TIBC Ferritin AST ALT Troponin I Total Protein Albumin Urine Protein Urine Glucose (UA) Amorphous Sediment Hep Bs Antigen Hep B Core Total Ab 02/01/19 02/02/19 02/02/19 23:56 03:51 04:03 WBC RBC 2.85 L Hgb 8.4 L Hct 25.2 L Neutrophils # Lymphocytes # Monocytes # PT INR APTT ABG pH ABG pCO2 ABG pO2 ABG HCO3 ABG Total CO2 ABG O2 Saturation Sodium Potassium Chloride Carbon Dioxide BUN Creatinine Glucose POC Glucose (mg/dL) 173 H 171 H Plasma Lactic Acid Jose Carlos Calcium Phosphorus Magnesium Iron TIBC Ferritin AST ALT Troponin I Total Protein Albumin Urine Protein Urine Glucose (UA) Amorphous Sediment Hep Bs Antigen Hep B Core Total Ab 02/02/19 02/02/19 02/02/19 04:03 05:06 07:59 WBC RBC Hgb Hct Neutrophils # Lymphocytes # Monocytes # PT INR APTT ABG pH ABG pCO2 ABG pO2 114 H ABG HCO3 ABG Total CO2 25 H ABG O2 Saturation 98.5 H Sodium 134 L Potassium Chloride Carbon Dioxide BUN 37 H Creatinine 2.70 H Glucose 177 H POC Glucose (mg/dL) 207 H Plasma Lactic Acid Jose Carlos Calcium 8.1 L Phosphorus Magnesium Iron TIBC Ferritin AST ALT Troponin I Total Protein 6.2 L Albumin 2.7 L Urine Protein Urine Glucose (UA) Amorphous Sediment Hep Bs Antigen Hep B Core Total Ab 02/02/19 02/02/19 02/02/19 12:03 16:04 21:07 WBC RBC Hgb Hct Neutrophils # Lymphocytes # Monocytes # PT INR APTT ABG pH ABG pCO2 ABG pO2 ABG HCO3 ABG Total CO2 ABG O2 Saturation Sodium Potassium Chloride Carbon Dioxide BUN Creatinine Glucose POC Glucose (mg/dL) 166 H 142 H 143 H Plasma Lactic Acid Jose Carlos Calcium Phosphorus Magnesium Iron TIBC Ferritin AST ALT Troponin I Total Protein Albumin Urine Protein Urine Glucose (UA) Amorphous Sediment Hep Bs Antigen Hep B Core Total Ab 02/02/19 02/03/19 02/03/19 23:36 00:08 03:40 WBC RBC Hgb Hct Neutrophils # Lymphocytes # Monocytes # PT INR APTT ABG pH ABG pCO2 ABG pO2 119 H ABG HCO3 ABG Total CO2 25 H ABG O2 Saturation 98.5 H Sodium Potassium Chloride Carbon Dioxide BUN Creatinine Glucose POC Glucose (mg/dL) 139 H 152 H Plasma Lactic Acid Jose Carlos Calcium Phosphorus Magnesium Iron TIBC Ferritin AST ALT Troponin I Total Protein Albumin Urine Protein Urine Glucose (UA) Amorphous Sediment Hep Bs Antigen Hep B Core Total Ab 02/03/19 02/03/19 02/03/19 03:42 05:40 05:40 WBC RBC 2.89 L Hgb 8.5 L Hct 25.8 L Neutrophils # Lymphocytes # Monocytes # PT INR APTT ABG pH ABG pCO2 ABG pO2 ABG HCO3 ABG Total CO2 ABG O2 Saturation Sodium Potassium Chloride Carbon Dioxide 21 L BUN 47 H Creatinine 3.65 H Glucose 125 H POC Glucose (mg/dL) 124 H Plasma Lactic Acid Jose Carlos Calcium Phosphorus Magnesium Iron TIBC Ferritin AST ALT Troponin I Total Protein Albumin 2.9 L Urine Protein Urine Glucose (UA) Amorphous Sediment Hep Bs Antigen Hep B Core Total Ab 02/03/19 02/03/19 02/03/19 11:59 17:09 20:29 WBC RBC Hgb Hct Neutrophils # Lymphocytes # Monocytes # PT INR APTT ABG pH ABG pCO2 ABG pO2 ABG HCO3 ABG Total CO2 ABG O2 Saturation Sodium Potassium Chloride Carbon Dioxide BUN Creatinine Glucose POC Glucose (mg/dL) 118 H 147 H 145 H Plasma Lactic Acid Jose Carlos Calcium Phosphorus Magnesium Iron TIBC Ferritin AST ALT Troponin I Total Protein Albumin Urine Protein Urine Glucose (UA) Amorphous Sediment Hep Bs Antigen Hep B Core Total Ab 02/04/19 02/04/19 02/04/19 04:50 04:50 04:54 WBC RBC 2.95 L Hgb 8.8 L Hct 27.0 L Neutrophils # Lymphocytes # 0.8 L Monocytes # PT INR APTT ABG pH ABG pCO2 ABG pO2 ABG HCO3 ABG Total CO2 ABG O2 Saturation Sodium Potassium Chloride Carbon Dioxide 21 L BUN 36 H Creatinine 2.98 H Glucose 158 H POC Glucose (mg/dL) Plasma Lactic Acid Jose Carlos Calcium 8.2 L Phosphorus 6.1 H Magnesium Iron 34 L TIBC 218 L Ferritin 1686.9 H AST ALT Troponin I Total Protein Albumin 3.0 L Urine Protein Urine Glucose (UA) Amorphous Sediment Hep Bs Antigen Hep B Core Total Ab 02/04/19 02/04/19 02/04/19 06:55 11:43 16:32 WBC RBC Hgb Hct Neutrophils # Lymphocytes # Monocytes # PT INR APTT ABG pH ABG pCO2 ABG pO2 ABG HCO3 ABG Total CO2 ABG O2 Saturation Sodium Potassium Chloride Carbon Dioxide BUN Creatinine Glucose POC Glucose (mg/dL) 145 H 156 H 133 H Plasma Lactic Acid Jose Carlos Calcium Phosphorus Magnesium Iron TIBC Ferritin AST ALT Troponin I Total Protein Albumin Urine Protein Urine Glucose (UA) Amorphous Sediment Hep Bs Antigen Hep B Core Total Ab 02/04/19 02/04/19 02/05/19 20:19 20:40 03:16 WBC RBC Hgb Hct Neutrophils # Lymphocytes # Monocytes # PT INR APTT ABG pH 7.32 L 7.33 L ABG pCO2 52 H 51 H ABG pO2 129 H ABG HCO3 27 H 27 H ABG Total CO2 29 H 28 H ABG O2 Saturation 97.5 H 98.8 H Sodium Potassium Chloride Carbon Dioxide BUN Creatinine Glucose POC Glucose (mg/dL) 160 H Plasma Lactic Acid Jose Carlos Calcium Phosphorus Magnesium Iron TIBC Ferritin AST ALT Troponin I Total Protein Albumin Urine Protein Urine Glucose (UA) Amorphous Sediment Hep Bs Antigen Hep B Core Total Ab 02/05/19 02/05/19 02/05/19 04:37 04:40 06:37 WBC RBC 3.00 L Hgb 8.5 L Hct 27.4 L Neutrophils # Lymphocytes # 0.9 L Monocytes # PT INR APTT ABG pH ABG pCO2 ABG pO2 ABG HCO3 ABG Total CO2 ABG O2 Saturation Sodium Potassium Chloride Carbon Dioxide BUN 45 H Creatinine 3.31 H Glucose 141 H POC Glucose (mg/dL) 143 H Plasma Lactic Acid Jose Carlos Calcium Phosphorus Magnesium Iron TIBC Ferritin AST ALT Troponin I Total Protein Albumin 3.0 L Urine Protein Urine Glucose (UA) Amorphous Sediment Hep Bs Antigen Hep B Core Total Ab 02/05/19 02/05/19 02/05/19 11:59 16:58 20:36 WBC RBC Hgb Hct Neutrophils # Lymphocytes # Monocytes # PT INR APTT ABG pH ABG pCO2 ABG pO2 ABG HCO3 ABG Total CO2 ABG O2 Saturation Sodium Potassium Chloride Carbon Dioxide BUN Creatinine Glucose POC Glucose (mg/dL) 225 H 110 H 191 H Plasma Lactic Acid Jose Carlos Calcium Phosphorus Magnesium Iron TIBC Ferritin AST ALT Troponin I Total Protein Albumin Urine Protein Urine Glucose (UA) Amorphous Sediment Hep Bs Antigen Hep B Core Total Ab 02/06/19 02/06/19 02/06/19 05:25 05:25 06:48 WBC RBC 3.00 L Hgb 9.1 L Hct 27.9 L Neutrophils # Lymphocytes # Monocytes # PT INR APTT ABG pH ABG pCO2 ABG pO2 ABG HCO3 ABG Total CO2 ABG O2 Saturation Sodium Potassium Chloride 110 H Carbon Dioxide 19 L BUN 27 H Creatinine 2.47 H Glucose 175 H POC Glucose (mg/dL) 163 H Plasma Lactic Acid Jose Carlos Calcium Phosphorus Magnesium Iron TIBC Ferritin AST ALT Troponin I Total Protein Albumin 3.1 L Urine Protein Urine Glucose (UA) Amorphous Sediment Hep Bs Antigen Hep B Core Total Ab 02/06/19 02/06/19 02/06/19 11:54 18:04 20:40 WBC RBC Hgb Hct Neutrophils # Lymphocytes # Monocytes # PT INR APTT ABG pH ABG pCO2 ABG pO2 ABG HCO3 ABG Total CO2 ABG O2 Saturation Sodium Potassium Chloride Carbon Dioxide BUN Creatinine Glucose POC Glucose (mg/dL) 176 H 200 H 149 H Plasma Lactic Acid Jose Carlos Calcium Phosphorus Magnesium Iron TIBC Ferritin AST ALT Troponin I Total Protein Albumin Urine Protein Urine Glucose (UA) Amorphous Sediment Hep Bs Antigen Hep B Core Total Ab 02/07/19 02/07/19 02/07/19 06:16 06:38 06:38 WBC RBC 3.06 L Hgb 9.7 L Hct 29.2 L Neutrophils # Lymphocytes # Monocytes # PT INR APTT ABG pH ABG pCO2 ABG pO2 ABG HCO3 ABG Total CO2 ABG O2 Saturation Sodium Potassium Chloride 112 H Carbon Dioxide 19 L BUN 38 H Creatinine 3.50 H Glucose 163 H POC Glucose (mg/dL) 159 H Plasma Lactic Acid Jose Carlos Calcium Phosphorus Magnesium Iron TIBC Ferritin AST ALT Troponin I Total Protein Albumin 3.1 L Urine Protein Urine Glucose (UA) Amorphous Sediment Hep Bs Antigen Hep B Core Total Ab 02/07/19 02/07/19 02/07/19 11:57 17:07 20:30 WBC RBC Hgb Hct Neutrophils # Lymphocytes # Monocytes # PT INR APTT ABG pH ABG pCO2 ABG pO2 ABG HCO3 ABG Total CO2 ABG O2 Saturation Sodium Potassium Chloride Carbon Dioxide BUN Creatinine Glucose POC Glucose (mg/dL) 160 H 210 H 152 H Plasma Lactic Acid Jose Carlos Calcium Phosphorus Magnesium Iron TIBC Ferritin AST ALT Troponin I Total Protein Albumin Urine Protein Urine Glucose (UA) Amorphous Sediment Hep Bs Antigen Hep B Core Total Ab 02/08/19 02/08/19 02/08/19 06:34 11:34 16:41 WBC RBC Hgb Hct Neutrophils # Lymphocytes # Monocytes # PT INR APTT ABG pH ABG pCO2 ABG pO2 ABG HCO3 ABG Total CO2 ABG O2 Saturation Sodium Potassium Chloride Carbon Dioxide BUN Creatinine Glucose POC Glucose (mg/dL) 203 H 188 H 151 H Plasma Lactic Acid Jose Carlos Calcium Phosphorus Magnesium Iron TIBC Ferritin AST ALT Troponin I Total Protein Albumin Urine Protein Urine Glucose (UA) Amorphous Sediment Hep Bs Antigen Hep B Core Total Ab 02/08/19 02/09/19 02/09/19 20:31 06:01 06:01 WBC RBC 3.40 L Hgb 10.1 L Hct 31.6 L Neutrophils # Lymphocytes # Monocytes # PT INR APTT ABG pH ABG pCO2 ABG pO2 ABG HCO3 ABG Total CO2 ABG O2 Saturation Sodium Potassium Chloride Carbon Dioxide BUN 43 H Creatinine 5.05 H Glucose 160 H POC Glucose (mg/dL) 177 H Plasma Lactic Acid Jose Carlos Calcium Phosphorus Magnesium 2.4 H Iron TIBC Ferritin AST ALT Troponin I Total Protein Albumin 3.4 L Urine Protein Urine Glucose (UA) Amorphous Sediment Hep Bs Antigen Hep B Core Total Ab 02/09/19 02/09/19 02/09/19 06:16 06:38 07:20 WBC RBC Hgb Hct Neutrophils # Lymphocytes # Monocytes # PT INR APTT ABG pH ABG pCO2 ABG pO2 ABG HCO3 ABG Total CO2 ABG O2 Saturation Sodium Potassium Chloride Carbon Dioxide BUN Creatinine Glucose POC Glucose (mg/dL) 138 H 157 H Plasma Lactic Acid Jose Carlos 8.8 H* Calcium Phosphorus Magnesium Iron TIBC Ferritin AST ALT Troponin I Total Protein Albumin Urine Protein Urine Glucose (UA) Amorphous Sediment Hep Bs Antigen Hep B Core Total Ab 02/09/19 02/09/19 02/09/19 07:20 07:26 08:04 WBC RBC Hgb Hct Neutrophils # Lymphocytes # Monocytes # PT 12.3 H INR 1.2 H APTT 38.9 H ABG pH 7.01 L* ABG pCO2 76 H* ABG pO2 140 H ABG HCO3 19 L ABG Total CO2 ABG O2 Saturation 98.0 H Sodium Potassium Chloride Carbon Dioxide BUN Creatinine Glucose POC Glucose (mg/dL) 204 H Plasma Lactic Acid Jose Carlos Calcium Phosphorus Magnesium Iron TIBC Ferritin AST ALT Troponin I Total Protein Albumin Urine Protein Urine Glucose (UA) Amorphous Sediment Hep Bs Antigen Hep B Core Total Ab 02/09/19 02/09/19 02/09/19 08:23 09:13 11:49 WBC RBC Hgb Hct Neutrophils # Lymphocytes # Monocytes # PT INR APTT ABG pH 7.33 L ABG pCO2 50 H ABG pO2 ABG HCO3 26 H ABG Total CO2 28 H ABG O2 Saturation Sodium Potassium Chloride Carbon Dioxide BUN Creatinine Glucose POC Glucose (mg/dL) 198 H Plasma Lactic Acid Jose Carlos 6.0 H* Calcium Phosphorus Magnesium Iron TIBC Ferritin AST ALT Troponin I Total Protein Albumin Urine Protein Urine Glucose (UA) Amorphous Sediment Hep Bs Antigen Hep B Core Total Ab 02/09/19 02/09/19 02/09/19 11:52 13:22 15:19 WBC RBC Hgb Hct Neutrophils # Lymphocytes # Monocytes # PT INR APTT ABG pH 7.28 L ABG pCO2 53 H ABG pO2 67 L 156 H 129 H ABG HCO3 ABG Total CO2 26 H 26 H 26 H ABG O2 Saturation 91.3 L 99.1 H 99.0 H Sodium Potassium Chloride Carbon Dioxide BUN Creatinine Glucose POC Glucose (mg/dL) Plasma Lactic Acid Jose Carlos Calcium Phosphorus Magnesium Iron TIBC Ferritin AST ALT Troponin I Total Protein Albumin Urine Protein Urine Glucose (UA) Amorphous Sediment Hep Bs Antigen Hep B Core Total Ab 02/09/19 02/09/19 02/09/19 15:30 15:30 19:00 WBC RBC Hgb Hct Neutrophils # Lymphocytes # Monocytes # PT INR APTT ABG pH ABG pCO2 ABG pO2 ABG HCO3 ABG Total CO2 ABG O2 Saturation Sodium Potassium Chloride Carbon Dioxide BUN Creatinine Glucose POC Glucose (mg/dL) 484 H Plasma Lactic Acid Jose Carlos 5.1 H* Calcium Phosphorus Magnesium Iron TIBC Ferritin AST ALT Troponin I 25.000 H* Total Protein Albumin Urine Protein Urine Glucose (UA) Amorphous Sediment Hep Bs Antigen Hep B Core Total Ab 02/09/19 02/09/19 02/09/19 19:53 19:55 19:55 WBC RBC Hgb Hct Neutrophils # Lymphocytes # Monocytes # PT INR APTT ABG pH ABG pCO2 ABG pO2 ABG HCO3 ABG Total CO2 ABG O2 Saturation Sodium Potassium Chloride Carbon Dioxide BUN Creatinine Glucose POC Glucose (mg/dL) 399 H Plasma Lactic Acid Jose Carlos 4.5 H* Calcium Phosphorus Magnesium Iron TIBC Ferritin AST ALT Troponin I 41.000 H* Total Protein Albumin Urine Protein Urine Glucose (UA) Amorphous Sediment Hep Bs Antigen Hep B Core Total Ab 02/09/19 02/09/19 02/09/19 19:55 21:16 22:05 WBC RBC Hgb Hct Neutrophils # Lymphocytes # Monocytes # PT INR APTT ABG pH ABG pCO2 ABG pO2 ABG HCO3 ABG Total CO2 ABG O2 Saturation Sodium 147 H Potassium 2.3 L* Chloride 119 H Carbon Dioxide 19 L BUN 36 H Creatinine 3.26 H Glucose 330 H POC Glucose (mg/dL) 407 H 374 H Plasma Lactic Acid Jose Carlos Calcium 4.9 L* Phosphorus Magnesium Iron TIBC Ferritin AST 147 H ALT 53 H Troponin I Total Protein 4.0 L Albumin 1.6 L Urine Protein Urine Glucose (UA) Amorphous Sediment Hep Bs Antigen Hep B Core Total Ab 02/09/19 02/10/19 02/10/19 23:08 00:08 00:10 WBC RBC Hgb Hct Neutrophils # Lymphocytes # Monocytes # PT INR APTT ABG pH ABG pCO2 ABG pO2 ABG HCO3 ABG Total CO2 ABG O2 Saturation Sodium Potassium Chloride Carbon Dioxide BUN Creatinine Glucose POC Glucose (mg/dL) 323 H 287 H Plasma Lactic Acid Jose Carlos 5.7 H* Calcium Phosphorus Magnesium Iron TIBC Ferritin AST ALT Troponin I Total Protein Albumin Urine Protein Urine Glucose (UA) Amorphous Sediment Hep Bs Antigen Hep B Core Total Ab 02/10/19 02/10/19 02/10/19 01:06 02:05 03:00 WBC RBC Hgb Hct Neutrophils # Lymphocytes # Monocytes # PT INR APTT ABG pH ABG pCO2 ABG pO2 ABG HCO3 ABG Total CO2 ABG O2 Saturation Sodium Potassium Chloride Carbon Dioxide BUN 54 H Creatinine 5.47 H Glucose 212 H POC Glucose (mg/dL) 237 H 230 H Plasma Lactic Acid Jose Carlos Calcium Phosphorus Magnesium Iron TIBC Ferritin AST ALT Troponin I Total Protein Albumin Urine Protein Urine Glucose (UA) Amorphous Sediment Hep Bs Antigen Hep B Core Total Ab 02/10/19 02/10/19 02/10/19 03:03 04:10 04:10 WBC 17.1 H RBC 3.11 L Hgb 9.3 L Hct 28.0 L Neutrophils # 13.6 H Lymphocytes # Monocytes # 1.4 H PT INR APTT ABG pH ABG pCO2 ABG pO2 ABG HCO3 ABG Total CO2 ABG O2 Saturation Sodium Potassium Chloride Carbon Dioxide BUN Creatinine Glucose POC Glucose (mg/dL) 220 H Plasma Lactic Acid Jose Carlos 3.9 H* Calcium Phosphorus Magnesium Iron TIBC Ferritin AST ALT Troponin I Total Protein Albumin Urine Protein Urine Glucose (UA) Amorphous Sediment Hep Bs Antigen Hep B Core Total Ab 02/10/19 02/10/19 02/10/19 04:15 05:14 05:38 WBC RBC Hgb Hct Neutrophils # Lymphocytes # Monocytes # PT INR APTT ABG pH 7.58 H* ABG pCO2 31 L ABG pO2 348 H ABG HCO3 29 H ABG Total CO2 30 H ABG O2 Saturation 98.9 H Sodium Potassium Chloride Carbon Dioxide BUN Creatinine Glucose POC Glucose (mg/dL) 223 H 224 H Plasma Lactic Acid Jose Carlos Calcium Phosphorus Magnesium Iron TIBC Ferritin AST ALT Troponin I Total Protein Albumin Urine Protein Urine Glucose (UA) Amorphous Sediment Hep Bs Antigen Hep B Core Total Ab 02/10/19 02/10/19 02/10/19 06:04 07:02 09:06 WBC RBC Hgb Hct Neutrophils # Lymphocytes # Monocytes # PT INR APTT ABG pH ABG pCO2 ABG pO2 ABG HCO3 ABG Total CO2 ABG O2 Saturation Sodium Potassium Chloride Carbon Dioxide BUN Creatinine Glucose POC Glucose (mg/dL) 220 H 195 H 174 H Plasma Lactic Acid Jose Carlos Calcium Phosphorus Magnesium Iron TIBC Ferritin AST ALT Troponin I Total Protein Albumin Urine Protein Urine Glucose (UA) Amorphous Sediment Hep Bs Antigen Hep B Core Total Ab 02/10/19 02/10/19 02/10/19 10:37 12:05 13:24 WBC RBC Hgb Hct Neutrophils # Lymphocytes # Monocytes # PT INR APTT ABG pH ABG pCO2 ABG pO2 ABG HCO3 ABG Total CO2 ABG O2 Saturation Sodium Potassium Chloride Carbon Dioxide BUN Creatinine Glucose POC Glucose (mg/dL) 137 H 187 H 168 H Plasma Lactic Acid Jose Carlos Calcium Phosphorus Magnesium Iron TIBC Ferritin AST ALT Troponin I Total Protein Albumin Urine Protein Urine Glucose (UA) Amorphous Sediment Hep Bs Antigen Hep B Core Total Ab Assessment and Plan Assessment: * Status post witnessed cardiac arrest, with downtime of about 15-20 minutes * Anoxic encephalopathy, appears significant. * Toxic metabolic encephalopathy * Status post right below-knee amputation * Diabetes Plan: * Patient will undergo EEG in the morning to evaluate for cerebral activity. * Computed tomography scan of the head in the morning to evaluate for cerebral edema. * We will follow after above tests are completed
[2019-02-10 18:07] LABS: Glucose,Whole Blood 184 mg/dL (75-99)
[2019-02-10 19:19] LABS: Glucose,Whole Blood 192 mg/dL (75-99)
[2019-02-10 20:14] LABS: Glucose,Whole Blood 201 mg/dL (75-99)
[2019-02-10] MEDS: LATANOPROST 0.005% OPHTH DROPS 2.5 ML BTL LEFT EYE SCH (21:04)
[2019-02-10 21:19] LABS: Glucose,Whole Blood 198 mg/dL (75-99)
[2019-02-10 22:17] LABS: Glucose,Whole Blood 188 mg/dL (75-99)
[2019-02-10 23:11] LABS: Glucose,Whole Blood 155 mg/dL (75-99)
[2019-02-11 00:12] LABS: Glucose,Whole Blood 192 mg/dL (75-99)
[2019-02-11 02:18] LABS: Glucose,Whole Blood 149 mg/dL (75-99)
[2019-02-11] MEDS: PROPOFOL 1,000 MG in EMPTY BAG 1 BAG IV SCH ×5 (02:22→23:43)
[2019-02-11] MEDS: ACETAMINOPHEN TAB 325 MG TAB PO PRN ×2 (02:40→20:13)
[2019-02-11] MEDS: IPRATROPIUM-ALBUTEROL 3 ML NEB INHALATION SCH ×6 (03:21→23:39)
[2019-02-11 03:29] LABS: Glucose,Whole Blood 192 mg/dL (75-99)
[2019-02-11 04:25] LABS: Glucose,Whole Blood 193 mg/dL (75-99)
[2019-02-11] MEDS: NOREPINEPHRINE 4 MG in SODIUM CHLORIDE 0.9% 250 ML IV SCH ×2 (05:07→15:49)
[2019-02-11 05:17] LABS: Glucose,Whole Blood 192 mg/dL (75-99)
[2019-02-11 05:23] LABS: Basophils # (A) 0.1 k/uL (0-0.2); Basophils % (A) 0 %; Eosinophils # (A) 0.4 k/uL (0-0.7); Eosinophils % (A) 3 %; HCT 24.5 % (39.0-53.0); Hypochromasia Slight; Lymphocytes # (A) 1.5 k/uL (1.0-4.8); Lymphocytes % (A) 9 %; MCH 30.1 pg (25.0-35.0); MCHC 32.7 g/dL (31.0-37.0); MCV 92.2 fL (80.0-100.0); Mean Platelet Volume 10.3; Monocytes # (A) 0.8 k/uL (0-1.0); Monocytes % (A) 5 %; Neutrophils # (A) 13.8 k/uL (1.3-7.7); Neutrophils % (A) 82 %; Platelet Count 214 k/uL (150-450); RBC 2.65 m/uL (4.30-5.90); RDW 14.8 % (11.5-15.5); WBC 16.8 k/uL (3.8-10.6)
[2019-02-11 05:35] LABS: Albumin 2.5 g/dL (3.5-5.0); Calcium 7.8 mg/dL (8.4-10.2); Potassium 4.1 mmol/L (3.5-5.1); Total Bilirubin 0.5 mg/dL (0.2-1.3); Total Protein 5.5 g/dL (6.3-8.2)
[2019-02-11] MEDS: EPINEPHrine 4 MG in DEXTROSE 5% IN WATER 250 ML IV SCH ×4 (06:11→15:50)
[2019-02-11 06:18] LABS: Glucose,Whole Blood 172 mg/dL (75-99)
[2019-02-11] MEDS: CALCIUM ACETATE 667 MG TAB PO SCH ×3 (07:11→18:19)
[2019-02-11] MEDS: SODIUM CHLORIDE 0.9% 1,000 ML IV SCH ×2 (07:11→23:50)
[2019-02-11 07:28] LABS: Glucose,Whole Blood 168 mg/dL (75-99)
[2019-02-11 07:33] LABS: ABG Base Excess 2.7 mmol/L; ABG HCO3 27 mmol/L (21-25); ABG Oxygen Saturation 97.5 % (94-97); ABG PCO2 39 mmHg (35-45); ABG PH 7.44 (7.35-7.45); ABG PO2 90 mmHg (83-108); ABG TCO2 28 mmol/L (19-24); Allen Test Performed? Yes
[2019-02-11 08:12] LABS: Glucose,Whole Blood 185 mg/dL (75-99)
--- NOTE | 2019-02-11 08:18 | XR ---
EXAMINATION TYPE: XR chest 1V portable DATE OF EXAM: 02/11/2019 COMPARISON: Prior chest x-ray 02/10/2019 HISTORY: Intubated TECHNIQUE: Single frontal view of the chest is obtained. FINDINGS: Endotracheal tube, NG tube, right jugular central venous catheter, left subclavian central venous catheter are stable and overlying appropriate positions. Bibasilar increased density persists , patient is rotated. No evident pneumothorax. Heart remains enlarged. Central vascularity and inters titium are increased. IMPRESSION: Correlate for volume overload, congestive heart failure, there may be basilar effusions, edema, pneumonia not excluded.
[2019-02-11 09:31] LABS: Glucose,Whole Blood 127 mg/dL (75-99)
--- NOTE | 2019-02-11 10:25 | P.PN ---
Subjective Progress Note Date: 02/11/19 Refugio Saenz, is a 68-year-old male who presented to [facility] emergency room with pain in the right foot, he was evaluated in emergency room and had blackish discoloration of the right fifth toe with surrounding erythema and tenderness, patient was started on IV antibiotics Zosyn, vancomycin, and clindamycin, he was admitted to medical floor vascular surgery consultation was requested for possible amputation due to evidence of gangrene. Infectious disease consultation was requested. Patient has a known history of insulin-dependent diabetes mellitus, his glucose level was well controlled up until September of this year his A1c in June was 7.1 and in September was 7.3 however apparently patient stopped taking his insulin and his medications and his A1c was up to 9.8 in November, he has a known history of right foot ulcer he was admitted to the hospital with right foot cellulitis and ulcer in 2014 and he was followed at the wound care clinic in 2015 however he was doing well up until recently. Patient also has a known history of hypertension, hyperlipidemia, he denies any history of coronary artery disease or congestive heart failure, he had an echocardiogram done in 2014 at that time he had normal left ventricular function was normal ejection fraction, no significant valvular disease and no pulmonary hypertension. 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 On 01/17/2019 patient's alert and oriented 3. Patient had fourth and fifth toe amputation with Dr. Edward this morning. Patient having some low blood pressure will give 500 mL bolus. Patient denies chest pain or shortness of breath. Patient denies nausea vomiting or diarrhea. Patient is having some increased pain to foot area pain medications ordered 01/18/2019, patient seen eval examined while covering for Dr. Granger, waking up this morning slightly slow to respond but not confused, breathing comfortably denies any chest pain labs reviewed today patient has been evaluated by Dr. Bassett, white cell count is coming down to 19,000, lactic acid level is normalized, patient has been on broad-spectrum antibiotics with vascular surgery on board 01/19/2019, patient seen and evaluated examined in the ICU intubated on full ventilator support, patient had gradual loss of consciousness has been more lethargic arterial blood gases were checked shows hypercapnic and hypoxic respiratory failure was intubated in the ICU, patient has been placed on propof ol he was volume depleted depleted aggressive fluid resuscitation were performed, is still requiring levophed intermittently, patient was also noted to be hypoglycemic 7030 insulin and other oral hypoglycemic agents were discontinued, ultrasound of the abdomen has been performed which is reviewed no obvious hydronephrosis seen, patient has decreased urine output along with rising BUN/creatinine appeared to be acute tubular necrosis, patient also requiring intermittent bolus of D10 for hypoglycemia, wounds has been evaluated by vascular surgery noted recommendation, patient has very poor venous access, will put a central line in, critical care time 45 minutes during procedure, due to altered mental status CT of the head was performed which was negative On 01/20/2019 patient remains in the intensive care unit on mechanical ventilation. Levophed has been on hold blood pressures has sustained. Creatinine has increased to 4.17 and bun 56. Nephrology services are following. Per nursing staff patient does follow commands during sedation holiday ABGs have improved. Discussed case with vascular surgeon nurse practitioner possible BKA discussion. White blood cell decreasing to 16.0. Critical care services are following. Patient remains on Zosyn for IV antibiotics. Infectious disease following 01/21/2019 patient remains on mechanical ventilation on in the intensive care unit. Patient remains sedated, on propofol. However per nursing staff patient does follow commands during sedation holiday. Patient is on 50% FiO2, 5 PEEP, tidal volume 500. Levophed off since 01/20/20. Blood pressure remains in the 130's-150's systolic. Creatinine 4.35 from 4.17 and BUN 57 from 56, Calcium 7.0, phosphorus 5.9 Nephrology is following. Orogastric tube replaced this morning. Per nursing staff OG tube was coiled in patient's mouth with tube feeds running. Chest x-ray repeated, no significant change from previous. ABG improving, still metabolic acidosis. WBC of 14.1 down from 16. Afebrile. Infectious disease is following patient is maintained on Zosyn. Will send C. diff sample due to new onset diarrhea for 1 day. Hyperglycemia noted (glucose 200's). Will discuss tube feed formula with dietary. If no changes can be made will adjust sliding scale. On 01/22/2019 patient remains sedated on mechanical ventilation in the intensive care unit. Per nursing staff patient is to have a BKA today with Dr. Edward. Patient remains off pressors, blood pressure has been stable. Chest x-ray repeated this morning, per pulmonary. No significant change in ABGs. Creatinine continues to increase, 4.84 today BUN 60, patient is still making adequate urine output nephrology is following. Tube feeds on hold, for pending OR. WBC 14.2, temperature overnight 100F. Please is following patient is maintained on Zosyn. C. diff sample was negative. 01/23/2019 patient remains sedated and on mechanical ventilation in the ICU. He underwent right BKA yesterday, 01/22/[address] Edward. Estimated blood loss 150 mL. He had a temp of 100 last night. Urine output is about 50 mL per hour. Creatinine has gone down from 4.84-4.82. Nephrology is following closely. No plans for hemodialysis yet. Patient's blood sugars are starting to become more elevated. They're in the 180s to 200s. Tube feedings are being adjusted. White count 13.7 hemoglobin 10.3 On 01/24/2019 patient remains sedated on mechanical ventilation in the intensive care unit. Decreased urine output throughout night. Creatinine 5.15 and bun 68. Patient remains on insulin drip. WBC 14.1. Patient having low-grade temps. Patient remains closely followed by critical care consulting providers On 01/25/2019 patient was seen and examined in the intensive care unit, he is currently alert and maintained on BiPAP trial, he is making more urine output, and no hemodialysis is scheduled at this time, creatinine improved, down from 5.15-4.44 white blood count down to 11.3 patient is followed by nephrology, infectious disease, pulmonary and critical care and vascular surgery On 01/26/2019 patient was seen and examined in the ICU, he is intubated sedated maintained on mechanical ventilation, creatinine went up today and he was started on hemodialysis, Zosyn has today, at this time will resume Zosyn, we have asked infectious disease to see patient and reassess antibiotics, otherwise patient is stable there is no fever or chills, he continues to have a rectal tube and having large amount of diarrhea, C. diff was checked and was negative will repeat test today. On 01/27/2019 patient remains on mechanical ventilation in the intensive care unit. Creatinine trending down today 4.76 and bun 77. Patient remains on Lasix drip per nephrology services. White count 11.8. She remains on IV Zosyn. Sedation holiday performed per nursing staff and critical care recommendation. On 01/28/2019 patient remains in the intensive care unit on mechanical ventilation. Sedation currently turned off. Patient is awake and following commands possible extubation today per critical care. Patient also received hemodialysis this will be the patient's third round of hemodialysis. Creatinine is trending down 4.44. Patient remains on Lasix drip. On 01/29/2019 patient remains in ICU intubated sedated maintained on mechanical ventilation, he had to CPAP trials yesterday, he is still maintained on hemodialysis, creatinine is elevated at 4.8 and BUN 89. On 01/30/2019 patient remains on mechanical ventilation in the intensive care unit. Patient is off sedation at this time and following commands. CPAP trial in place. Possible extubation today. Patient currently getting hemodialysis. Permanent hemodialysis catheter placed yesterday. Creatinine is trending down. Patient taken off insulin drip. on 01/31/2019 patient remains in intensive care unit on mechanical ventilation. Discussed case with critical care doctor Dr. Dominguez Yesterday. Patient unable to wean. we'll continue to monitor patient over the weekend and consider possible trach next week. Patient also received hemodialysis yesterday. On 02/01/2019 patient was seen and examined in the ICU he is intubated and maegan ntained on mechanical ventilation sedation is being stopped now for CPAP trial on 02/02/2019 patient was seen and examined in the ICU he has been extubated since yesterday, he is tolerating well maintained on oxygen via nasal cannula, he seems somnolent however he is opening his eyes and answering questions by nodding his head and trying to speak, there is no fever or chills no headache or dizziness no chest pain no shortness of breath he has occasional cough no nausea or vomiting no abdominal pain. on 02/03/2019 patient is currently sitting up in chair on nasal cannula. Patient does wake up and follow commands. Per nursing staff antibiotics due to ID is following per nursing will get a hold of infectious disease to further evaluate need for antibiotics. at this time patient denies chest pain or shortness of breath. Patient denies nausea vomiting or diarrhea. Patient denies any urinary burning or frequency. patient to receive hemodialysis today remains on IV Lasix on 02/04/2019 patient is currently resting comfortably in bed. Patient is alert and oriented. Per nursing staff patient no longer needs antibiotics Dr. Bassett is following for infectious disease.patient received dialysis yesterday will receive hemodialysis again tomorrow maintained on IV Lasix. Elevated blood pressure. Hydralazine by mouth has been added. At this time patient denies chest pain or shortness of breath. Patient denies nausea vomiting or diarrhea. Patient denies any urinary burning or frequency. on 02/05/2019 patient is currently resting comfortably in chair. Per nursing staff patient had episode of increased lethargy last night requiring BiPAP and Narcan. per critical care and narcotics and benzos were DC'd at this time. Patient is now awake and alert 3. Patient able to follow commands and answer all questions. Patient denies any chest pain or shortness of breath. Patient denies nausea vomiting or diarrhea. Patient denies any urinary burning or frequency. 02/06/2019 patient is currently resting comfortably in bed.Patient did undergo hemodialysis yesterday. Lasix has been decreased per nephrology. Patient denies chest pain or shortness of breath. Patient denies vomiting or diarrhea. Patient denies any urinary burning or frequency. Working on discharge planning possible discharge to ECF next week. On 02/07/2019 patient has moved out of the intensive care unit to [facility]. Patient currently getting hemodialysis. Discussed case with nephrology services planning to do dialysis today and hold off during the weekends assess patient renal function on Sunday. Also patient is planning to be discharged to [facility] [place] now. This time patient denies chest pain. Patient denies nausea vomiting or diarrhea. Patient having some mild discomfort back will add Tylenol. Patient denies any urinary burning or frequency edward catheter remains in place. On 02/08/2019 patient was seen and examined on the telemetry floor he is alert responsive in no apparent distress he was more confused today, there is no fever or chills no headache or dizziness no chest pain no shortness of breath no cough no nausea or vomiting no abdominal pain no diarrhea no burning with urination no frequency or urgency and no hematuria. On 02/09/2019 patient had cardiac arrest this morning he was coded multiple times and was transferred to intensive care unit, he was seen by Dr. Bear who was covering for Dr. Dominguez, he was also seen by cardiology EKG revealed ST e levation in inferior leads patient was taken to the aquatic life laborer for acute inferior wall MN. On 02/10/2019 patient is currently in the intensive care unit on mechanical ventilation. Patient is status post cardiac arrest. Patient was taken to the cardiac Hr Administrative Assistant and found to have been a percent occluded RCA. Patient did receive stent in currently on Brilinta. Patient is currently on mechanical ve ntilation with sedation and epinephrine drip. Currently receiving hemodialysis. Critical care services are following. On 02/11/2019 patient remains in the intensive care unit on mechanical ventilat ion. Patient was evaluated by neurology services EEG and computed tomography scan of the brain has been ordered. Per nursing staff patient may not be stable enough for CT at this time. Patient remains on epinephrine drip for blood pressure control. Patient maintained on IV Zosyn per critical care. Patient to receive hemodialysis tomorrow 12/13/2018. Objective - Vital Signs Vital signs: Vital Signs Temp 100.0 F H 02/11/19 08:00 Pulse 112 H 02/11/19 09:30 Resp 37 H 02/11/19 09:30 BP 118/64 02/11/19 09:30 Pulse Ox 94 L 02/11/19 09:30 Intake & Output 02/10/19 02/11/19 02/11/19 18:59 06:59 18:59 Intake Total 204.490 8965.486 199.864 Output Total 25 40 0 Balance 084.367 1186.486 199.864 Weight 103.1 kg 107.3 kg Intake: IV 270 570 150 Sodium Chloride 0.9% 1, 270 570 150 000 ml @ 20 mls/hr IV . Q24H [place] Rx#:[id number] Intake, IV Titration 481.978 748.486 49.864 Amount EPINEPHrine 4 mg In 299.120 387.086 Dextrose 5% in Water 250 ml @ 0.01 MCG/KG/MIN 3. 619 mls/hr IV .Q24H [place] Rx#:[id number] Insulin Regular 100 unit 32.858 53.505 9.09 In Sodium Chloride 0.9% 100 ml @ Per Protocol IV .Q0M [place] Rx#:[id number] Piperacillin-Tazobactam 3 50 .375 gm In Sodium Chloride 0.9% 100 ml @ 25 mls/hr IVPB Q12HR [place] Rx #:[id number] Propofol 1,000 mg In 100.000 257.895 40.774 Empty Bag 1 bag @ Titrate IV .Q0M [place] Rx#: [id number] Sodium Chloride 0.9% 1, 50 000 ml @ 50 mls/hr IV . Q20H [place] Rx#:[id number] Output: Urine 25 40 0 Hemodialysis 0 Other: Voiding Method Indwelling Catheter Indwelling Catheter ABP, PAP, CO, CI - Last Documented Arterial Blood Pressure 129/46 - Exam HEENT head normocephalic and atraumatic Neck is supple no JVD no goiter no lymphadenopathy Chest exam reveals diminished lung sounds, a few scattered rhonchi no wheezing Cardiac exam reveals regular heart sounds S1 and S2 no gallops no murmurs Abdomen is obese, soft nontender no organomegaly with normal bowel sounds Extremity right BKA. Dressing is clean dry and intact Neuro currently on mechanical ventilation and sedation unequal pupils left greater than right. Right pupil sluggish. Patient reports he had eye surgery previously unable to recall for what but does report this is chronic. No other neuro deficits noted - Labs CBC & Chem 7: 02/11/19 05:00 02/11/19 05:00 Labs: Abnormal Lab Results - Last 24 Hours (Table) 02/10/19 02/10/19 02/10/19 Range/Units 10:37 12:05 13:24 WBC (3.8-10.6) k/uL RBC (4.30-5.90) m/uL Hgb (13.0-17.5) gm/dL Hct (39.0-53.0) % Neutrophils # (1.3-7.7) k/uL ABG HCO3 (21-25) mmol/L ABG Total CO2 (19-24) mmol/L ABG O2 Saturation (94-97) % BUN (9-20) mg/dL Creatinine (0.66-1.25) mg/dL Glucose (74-99) mg/dL POC Glucose (mg/dL) 137 H 187 H 168 H (75-99) mg/dL Calcium (8.4-10.2) mg/dL AST (17-59) U/L ALT (4-49) U/L Total Protein (6.3-8.2) g/dL Albumin (3.5-5.0) g/dL 02/10/19 02/10/19 02/10/19 Range/Units 15:09 16:11 17:56 WBC (3.8-10.6) k/uL RBC (4.30-5.90) m/uL Hgb (13.0-17.5) gm/dL Hct (39.0-53.0) % Neutrophils # (1.3-7.7) k/uL ABG HCO3 (21-25) mmol/L ABG Total CO2 (19-24) mmol/L ABG O2 Saturation (94-97) % BUN (9-20) mg/dL Creatinine (0.66-1.25) mg/dL Glucose (74-99) mg/dL POC Glucose (mg/dL) 198 H 194 H 184 H (75-99) mg/dL Calcium (8.4-10.2) mg/dL AST (17-59) U/L ALT (4-49) U/L Total Protein (6.3-8.2) g/dL Albumin (3.5-5.0) g/dL 02/10/19 02/10/19 02/10/19 Range/Units 19:08 20:03 21:07 WBC (3.8-10.6) k/uL RBC (4.30-5.90) m/uL Hgb (13.0-17.5) gm/dL Hct (39.0-53.0) % Neutrophils # (1.3-7.7) k/uL ABG HCO3 (21-25) mmol/L ABG Total CO2 (19-24) mmol/L ABG O2 Saturation (94-97) % BUN (9-20) mg/dL Creatinine (0.66-1.25) mg/dL Glucose (74-99) mg/dL POC Glucose (mg/dL) 192 H 201 H 198 H (75-99) mg/dL Calcium (8.4-10.2) mg/dL AST (17-59) U/L ALT (4-49) U/L Total Protein (6.3-8.2) g/dL Albumin (3.5-5.0) g/dL 02/10/19 02/10/19 02/11/19 Range/Units 22:06 23:00 00:01 WBC (3.8-10.6) k/uL RBC (4.30-5.90) m/uL Hgb (13.0-17.5) gm/dL Hct (39.0-53.0) % Neutrophils # (1.3-7.7) k/uL ABG HCO3 (21-25) mmol/L ABG Total CO2 (19-24) mmol/L ABG O2 Saturation (94-97) % BUN (9-20) mg/dL Creatinine (0.66-1.25) mg/dL Glucose (74-99) mg/dL POC Glucose (mg/dL) 188 H 155 H 192 H (75-99) mg/dL Calcium (8.4-10.2) mg/dL AST (17-59) U/L ALT (4-49) U/L Total Protein (6.3-8.2) g/dL Albumin (3.5-5.0) g/dL 02/11/19 02/11/19 02/11/19 Range/Units 02:07 03:07 04:04 WBC (3.8-10.6) k/uL RBC (4.30-5.90) m/uL Hgb (13.0-17.5) gm/dL Hct (39.0-53.0) % Neutrophils # (1.3-7.7) k/uL ABG HCO3 (21-25) mmol/L ABG Total CO2 (19-24) mmol/L ABG O2 Saturation (94-97) % BUN (9-20) mg/dL Creatinine (0.66-1.25) mg/dL Glucose (74-99) mg/dL POC Glucose (mg/dL) 149 H 192 H 193 H (75-99) mg/dL Calcium (8.4-10.2) mg/dL AST (17-59) U/L ALT (4-49) U/L Total Protein (6.3-8.2) g/dL Albumin (3.5-5.0) g/dL 02/11/19 02/11/19 02/11/19 Range/Units 05:00 05:00 05:05 WBC 16.8 H (3.8-10.6) k/uL RBC 2.65 L (4.30-5.90) m/uL Hgb 8.0 L (13.0-17.5) gm/dL Hct 24.5 L (39.0-53.0) % Neutrophils # 13.8 H (1.3-7.7) k/uL ABG HCO3 (21-25) mmol/L ABG Total CO2 (19-24) mmol/L ABG O2 Saturation (94-97) % BUN 35 H (9-20) mg/dL Creatinine 4.54 H (0.66-1.25) mg/dL Glucose 176 H (74-99) mg/dL POC Glucose (mg/dL) 192 H (75-99) mg/dL Calcium 7.8 L (8.4-10.2) mg/dL AST 139 H (17-59) U/L ALT 57 H (4-49) U/L Total Protein 5.5 L (6.3-8.2) g/dL Albumin 2.5 L (3.5-5.0) g/dL 02/11/19 02/11/19 02/11/19 Range/Units 06:07 07:07 07:29 WBC (3.8-10.6) k/uL RBC (4.30-5.90) m/uL Hgb (13.0-17.5) gm/dL Hct (39.0-53.0) % Neutrophils # (1.3-7.7) k/uL ABG HCO3 27 H (21-25) mmol/L ABG Total CO2 28 H (19-24) mmol/L ABG O2 Saturation 97.5 H (94-97) % BUN (9-20) mg/dL Creatinine (0.66-1.25) mg/dL Glucose (74-99) mg/dL POC Glucose (mg/dL) 172 H 168 H (75-99) mg/dL Calcium (8.4-10.2) mg/dL AST (17-59) U/L ALT (4-49) U/L Total Protein (6.3-8.2) g/dL Albumin (3.5-5.0) g/dL 02/11/19 02/11/19 Range/Units 08:00 09:19 WBC (3.8-10.6) k/uL RBC (4.30-5.90) m/uL Hgb (13.0-17.5) gm/dL Hct (39.0-53.0) % Neutrophils # (1.3-7.7) k/uL ABG HCO3 (21-25) mmol/L ABG Total CO2 (19-24) mmol/L ABG O2 Saturation (94-97) % BUN (9-20) mg/dL Creatinine (0.66-1.25) mg/dL Glucose (74-99) mg/dL POC Glucose (mg/dL) 185 H 127 H (75-99) mg/dL Calcium (8.4-10.2) mg/dL AST (17-59) U/L ALT (4-49) U/L Total Protein (6.3-8.2) g/dL Albumin (3.5-5.0) g/dL Microbiology - Last 24 Hours (Table) 02/10/19 01:18 Gram Stain - Preliminary Sputum Sputum Culture - Preliminary Assessment and Plan Assessment: #1 cardiac arrest secondary to acute ST elevation inferior wall MN requiring multiple prolonged codes.underwent cardiac cath with stents to RCA. Currently maintained on mechanical ventilation. Epinephrine drip in place. Chest x-ray completed showing improvement in lung volume irrigation. Pulmonary and critical care service is following. Patient currently maintained on Zosyn. Post cardiac cath 2-D echo completed showing EF of 35-40% #2. Anoxic encephalopathy and toxic metabolic encephalopathy post prolonged cardiac arrest. Neurology services are following. Patient will undergo EEG. Computed tomography scan has been ordered for when patient is stable #3 gangrene involving the right fifth toe with surrounding cellulitis Status post amputation of fourth and fifth toe with Dr. Edward and status post right BKA. #4 sepsis present on admission as evidenced by fever, leukocytosis, and elevated lactic acid. wound cultures growing gram-negative bacilli. White blood cell improving down to 9.3. patient has completed course of antibiotics per infectious disease no need for antibiotics at this time #5 acute hypoxic and hypercapnic respiratory failure with altered mental status changes secondary to severe sepsis. Patient was transferred to the intensive care unit and placed on mechanical ventilation. patient has been successfully extubated to 2 L. #6. Hypotension secondary to septic shock requiring Levophed for pressure support. resolved #7. Acute kidney injury secondary to ATN secondary to hypotension as well as vancomycin toxicity. Nephrology services are following. Ultrasound completed showing no evidence of hydronephrosis. currently receiving hemodialysis. Permanent hemodialysis catheter placed on 01/29/2019. On 02/10/2018 patient receiving hemodialysis #8. history of essential hypertension. Cardiology services following. EF 50- 55%. Per cardiology services no evidence of acute coronary syndrome at this time. hydralazine has been added by mouth #9. insulin-dependent diabetes mellitus, with poor control due to noncompliance last hemoglobin A1c was 9.8 at this time will hold glipizide, Januvia and metformin, and cover was insulin to sliding scale will adjust medications as needed. Blood sugars have been in the 200s after episode of hypoglycemia. Patient currently on insulin drip for tight blood sugar control. Post cardiac arrest patient started back on insulin drip #10. underlying history of diabetic complications of peripheral neuropathy and retinopathy. #11. poor compliance with medical management, patient had extensive counseling in the last year, his A1c was down to 7.1 in June however it was up to 9.8 again recently. #12 underlying history of hyperlipidemia maintained on atorvastatin, on hold. #13. Hypoglycemia. Home meds DC'd. Tube feedings have been initiated. Hypoglycemia has resolved #14. volume overload. Patient maintained on IV Lasix. Nephrology services are following #15. History of glaucoma with previous surgeries to left eye. Unequal pupils which patient reports is chronic. patient maintained on multiple eyedrops DVT prophylaxis heparin. GI prophylaxis Protonix Critical care, vascular surgery, infectious disease, cardiology and nephrology services following I performed an examination of the patient and discussed their management with the Nurse Practitioner. I have reviewed the Nurse Practitioner's notes and agree with the documented findings and plan of care
[2019-02-11] MEDS: INSULIN REGULAR 100 UNIT in SODIUM CHLORIDE 0.9% 100 ML IV SCH (10:27)
[2019-02-11 10:36] LABS: Glucose,Whole Blood 154 mg/dL (75-99)
[2019-02-11] MEDS: PIPERACILLIN-TAZOBACTAM 3.375 GM in SODIUM CHLORIDE 0.9% 100 ML IVPB SCH ×2 (10:44→20:14)
[2019-02-11] MEDS: TICAGRELOR 90 MG TAB PO SCH ×2 (10:45→20:14)
[2019-02-11] MEDS: ATORVASTATIN 80 MG TAB PO SCH (10:45)
[2019-02-11] MEDS: CHLORHEXIDINE GLUCONATE 15 ML CUP MUCOUS MEM SCH ×2 (10:45→20:14)
[2019-02-11] MEDS: PANTOPRAZOLE 40 MG TABLET PO SCH (10:45)
[2019-02-11] MEDS: METOPROLOL TARTRATE 25 MG TAB PO SCH ×2 (10:46→20:14)
[2019-02-11] MEDS: ASPIRIN 81 MG PO SCH (10:47)
[2019-02-11] MEDS: DORZOLAMIDE HCL 2% DROPS 10 ML BTL LEFT EYE SCH ×3 (10:48→21:06)
[2019-02-11] MEDS: BRIMONIDINE TARTRATE 0.2% DROPS 5 ML BTL LEFT EYE SCH ×3 (11:01→21:06)
[2019-02-11] MEDS: TIMOLOL 0.5% OPHTH DROPS 5 ML BTL LEFT EYE SCH ×2 (11:02→21:06)
[2019-02-11] MEDS: SODIUM BICARBONATE TAB 650 MG TAB PO SCH ×2 (11:02→20:14)
[2019-02-11 11:19] LABS: Glucose,Whole Blood 161 mg/dL (75-99)
[2019-02-11 12:01] LABS: Glucose,Whole Blood 150 mg/dL (75-99)
--- NOTE | 2019-02-11 12:58 | P.PN ---
Subjective Progress Note Date: 02/11/19 Principal diagnosis: Cardiac arrest 68-year-old male patient who got transferred to the intensive care unit after a acute cardiopulmonary arrest that occurred on the medical floor this morning. I am covering today for Dr. Dominguez and for that reason I am seeing this patient in the intensive care unit. Briefly, he has prolonged hypoxic respiratory failure that occurred following a infected gangrenous right foot for which the patient underwent a right below-knee amputation. He had a staphylococcal infection. He also developed acute kidney injury and the patient is currently on dialysis 3 times a week and his last dialysis session was done on Sunday. The patient has also [id number]-dnpowiixi diabetes mellitus, hypertension and hypertensive heart and peripheral neuropathy and hyperlipidemia and COPDThe patient developed an acute cardiac arrest. The patient was found to be unresponsive this morning. He was found to be PA. Immediately, the core he was involved in the patient was given, 4 rounds of epinephrine, bicarbonate he was intubated and brought into the intensive care unit. Initial EKG showed atrial fibrillation. In addition to a significant ST segment elevation involving the inferior leads and a right bundle branch block patter . Within minutes after his arrival to the intensive care unit, the patient is second code which lasted for around 5 minut es and this was a PEA rhythm and currently with going into the third code. He is currently receiving epinephrine and CPR as the patient went into a PEA. Cardiology is on the case. He has seen the patient the bedside. Breath sounds are equal and bilateral. Potassium level is at 4.7. The blood gases that was done and I showed a pH of 7.01 with a pCO2 of 76 and pO2 of 140. His lactic acid level was 8.8. His BUN is at 43 with a creatinine of 5.0 and a serum bicarbonate this morning prior to the code was 25. His hemoglobin was at 10.1. White cell count of 8.7. Patient was evaluated today on 02/10/2019, intubated, mechanically ventilated, on very small dose of propofol, not responding to any stimuli. Patient had at least 3 episodes of cardiac arrest yesterday requiring reintubation, and required cardiac catheterization. His ventilator settings presently are tidal volume of 500 assist control rate of 20 FiO2 of 50% PEEP of 12. Patient is on propofol at 10 mcg/kg/m, he is on hemodialysis, he is on epinephrine at 0.075 mcg/kg/m. Chest x-ray showed right lower lobe consolidation. Possibly related to aspiration, hence his Zosyn was restarted today empirically. His IV fluid is at 25 mL per hour. And he is about to receive hemodialysis in the next few minutes. ABG this morning on 100% showed a pO2 of 348 pCO2 of 31 pH of 7.58. Electrolytes are normal BUN is 54 creatinine 5.47. WBC count is 17.1 hemoglobin is 9.3. Troponin 41,000. Yesterday the patient had successful stenting of totally occluded distal RCA and he was found to have intracoronary thrombus noted in the takeoff of the PLV. Remains on heparin. Reevaluated today on 02/07/2019, remains in the intensive care unit, intubated, mechanically ventilated. His ventilator settings are tidal volume of 500 assist control rate of 20 PEEP was increased at 12, FiO2 at 60%, remains on norepinephrine at 0.07 mcg/kg/m. I have changed today his PEEP up to 12 and I kept him on FiO2 at 60%. Chest x-ray continues to show evidence of pulmonary edema, no plans to ultrafiltrate the patient today. Patient will be started today on enteral feeding. He was seen by neurology, and it is felt that the patient has severe anoxic brain injury. As a matter of fact on my examination today, patient had no corneal reflexes, he had negative calorics, he does breathe on his own, and he at times asynchronous with the ventilator when sedation is on hold. But does not follow any instructions does not respond to any pain.ABG today showed a pO2 of 90 pCO2 of 39 pH of 7.44 WBC count is 16.8 hemoglobin is 8, electrolytes are normal BUN is 35 creatinine 4.54 Objective - Vital Signs Vital signs: Vital Signs Temp 100.3 F H 02/11/19 12:00 Pulse 102 H 02/11/19 12:00 Resp 21 02/11/19 12:00 BP 110/67 02/11/19 12:00 Pulse Ox 99 02/11/19 12:00 Intake & Output 02/10/19 02/11/19 02/11/19 18:59 06:59 18:59 Intake Total 804.435 4763.486 384.638 Output Total 25 40 0 Balance 148.594 5070.486 384.638 Weight 103.1 kg 107.3 kg 107.3 kg Intake: IV 270 570 300 Sodium Chloride 0.9% 1, 270 570 300 000 ml @ 20 mls/hr IV . Q24H [facility] Rx#:[id number] Intake, IV Titration 481.978 748.486 84.638 Amount EPINEPHrine 4 mg In 299.120 387.086 Dextrose 5% in Water 250 ml @ 0.01 MCG/KG/MIN 3. 619 mls/hr IV .Q24H [facility] Rx#:[id number] Insulin Regular 100 unit 32.858 53.505 16.985 In Sodium Chloride 0.9% 100 ml @ Per Protocol IV .Q0M [facility] Rx#:[id number] Piperacillin-Tazobactam 3 50 .375 gm In Sodium Chloride 0.9% 100 ml @ 25 mls/hr IVPB Q12HR [place] Rx #:[id number] Propofol 1,000 mg In 100.000 257.895 67.653 Empty Bag 1 bag @ Titrate IV .Q0M [place] Rx#: [id number] Sodium Chloride 0.9% 1, 50 000 ml @ 50 mls/hr IV . Q20H [place] Rx#:[id number] Output: Urine 25 40 0 Hemodialysis 0 Other: Voiding Method Indwelling Catheter Indwelling Catheter ABP, PAP, CO, CI - Last Documented Arterial Blood Pressure 130/47 - Exam Physical Exam: Revealed 68-year-old white male obese comatose, in no distress on mechanical ventilation. Head: Atraumatic, normocephalic. Endotracheal tube and orogastric tube are intact. HEENT:[Neck is supple.] [No neck masses.] [No thyromegaly.] [No JVD.] Moist mucous membranes, no neck masses, no JVD. Chest: [Symmetrical chest expansion, crackles at the right base. No rhonchi and no wheezes. Cardiac Exam: [Normal S1 and S2, no S3 gallop, 2/6 systolic murmur thought the precordium.] Abdomen: [Obese, Soft, nontender, no megaly, no rebound, no guarding, normal bowel sounds.] Extremities: [No clubbing, 1+ bipedal, no cyanosis.] Right below knee amputation is noted. Neurological Exam: Patient is unresponsive to any stimuli. right pupil is sluggish to light, left pupil is dilated. Negative corneals. Negative calorics. Psychiatric could not be assessed. Skin: No rashes. Right below-knee amputation is intact. Wrapped with sterile dressing. - Labs CBC & Chem 7: 02/11/19 05:00 02/11/19 05:00 Labs: Abnormal Lab Results - Last 24 Hours (Table) 02/10/19 02/10/19 02/10/19 Range/Units 13:24 15:09 16:11 WBC (3.8-10.6) k/uL RBC (4.30-5.90) m/uL Hgb (13.0-17.5) gm/dL Hct (39.0-53.0) % Neutrophils # (1.3-7.7) k/uL ABG HCO3 (21-25) mmol/L ABG Total CO2 (19-24) mmol/L ABG O2 Saturation (94-97) % BUN (9-20) mg/dL Creatinine (0.66-1.25) mg/dL Glucose (74-99) mg/dL POC Glucose (mg/dL) 168 H 198 H 194 H (75-99) mg/dL Calcium (8.4-10.2) mg/dL AST (17-59) U/L ALT (4-49) U/L Total Protein (6.3-8.2) g/dL Albumin (3.5-5.0) g/dL 02/10/19 02/10/19 02/10/19 Range/Units 17:56 19:08 20:03 WBC (3.8-10.6) k/uL RBC (4.30-5.90) m/uL Hgb (13.0-17.5) gm/dL Hct (39.0-53.0) % Neutrophils # (1.3-7.7) k/uL ABG HCO3 (21-25) mmol/L ABG Total CO2 (19-24) mmol/L ABG O2 Saturation (94-97) % BUN (9-20) mg/dL Creatinine (0.66-1.25) mg/dL Glucose (74-99) mg/dL POC Glucose (mg/dL) 184 H 192 H 201 H (75-99) mg/dL Calcium (8.4-10.2) mg/dL AST (17-59) U/L ALT (4-49) U/L Total Protein (6.3-8.2) g/dL Albumin (3.5-5.0) g/dL 02/10/19 02/10/19 02/10/19 Range/Units 21:07 22:06 23:00 WBC (3.8-10.6) k/uL RBC (4.30-5.90) m/uL Hgb (13.0-17.5) gm/dL Hct (39.0-53.0) % Neutrophils # (1.3-7.7) k/uL ABG HCO3 (21-25) mmol/L ABG Total CO2 (19-24) mmol/L ABG O2 Saturation (94-97) % BUN (9-20) mg/dL Creatinine (0.66-1.25) mg/dL Glucose (74-99) mg/dL POC Glucose (mg/dL) 198 H 188 H 155 H (75-99) mg/dL Calcium (8.4-10.2) mg/dL AST (17-59) U/L ALT (4-49) U/L Total Protein (6.3-8.2) g/dL Albumin (3.5-5.0) g/dL 02/11/19 02/11/19 02/11/19 Range/Units 00:01 02:07 03:07 WBC (3.8-10.6) k/uL RBC (4.30-5.90) m/uL Hgb (13.0-17.5) gm/dL Hct (39.0-53.0) % Neutrophils # (1.3-7.7) k/uL ABG HCO3 (21-25) mmol/L ABG Total CO2 (19-24) mmol/L ABG O2 Saturation (94-97) % BUN (9-20) mg/dL Creatinine (0.66-1.25) mg/dL Glucose (74-99) mg/dL POC Glucose (mg/dL) 192 H 149 H 192 H (75-99) mg/dL Calcium (8.4-10.2) mg/dL AST (17-59) U/L ALT (4-49) U/L Total Protein (6.3-8.2) g/dL Albumin (3.5-5.0) g/dL 02/11/19 02/11/19 02/11/19 Range/Units 04:04 05:00 05:00 WBC 16.8 H (3.8-10.6) k/uL RBC 2.65 L (4.30-5.90) m/uL Hgb 8.0 L (13.0-17.5) gm/dL Hct 24.5 L (39.0-53.0) % Neutrophils # 13.8 H (1.3-7.7) k/uL ABG HCO3 (21-25) mmol/L ABG Total CO2 (19-24) mmol/L ABG O2 Saturation (94-97) % BUN 35 H (9-20) mg/dL Creatinine 4.54 H (0.66-1.25) mg/dL Glucose 176 H (74-99) mg/dL POC Glucose (mg/dL) 193 H (75-99) mg/dL Calcium 7.8 L (8.4-10.2) mg/dL AST 139 H (17-59) U/L ALT 57 H (4-49) U/L Total Protein 5.5 L (6.3-8.2) g/dL Albumin 2.5 L (3.5-5.0) g/dL 02/11/19 02/11/19 02/11/19 Range/Units 05:05 06:07 07:07 WBC (3.8-10.6) k/uL RBC (4.30-5.90) m/uL Hgb (13.0-17.5) gm/dL Hct (39.0-53.0) % Neutrophils # (1.3-7.7) k/uL ABG HCO3 (21-25) mmol/L ABG Total CO2 (19-24) mmol/L ABG O2 Saturation (94-97) % BUN (9-20) mg/dL Creatinine (0.66-1.25) mg/dL Glucose (74-99) mg/dL POC Glucose (mg/dL) 192 H 172 H 168 H (75-99) mg/dL Calcium (8.4-10.2) mg/dL AST (17-59) U/L ALT (4-49) U/L Total Protein (6.3-8.2) g/dL Albumin (3.5-5.0) g/dL 02/11/19 02/11/19 02/11/19 Range/Units 07:29 08:00 09:19 WBC (3.8-10.6) k/uL RBC (4.30-5.90) m/uL Hgb (13.0-17.5) gm/dL Hct (39.0-53.0) % Neutrophils # (1.3-7.7) k/uL ABG HCO3 27 H (21-25) mmol/L ABG Total CO2 28 H (19-24) mmol/L ABG O2 Saturation 97.5 H (94-97) % BUN (9-20) mg/dL Creatinine (0.66-1.25) mg/dL Glucose (74-99) mg/dL POC Glucose (mg/dL) 185 H 127 H (75-99) mg/dL Calcium (8.4-10.2) mg/dL AST (17-59) U/L ALT (4-49) U/L Total Protein (6.3-8.2) g/dL Albumin (3.5-5.0) g/dL 02/11/19 02/11/19 02/11/19 Range/Units 10:25 11:08 11:51 WBC (3.8-10.6) k/uL RBC (4.30-5.90) m/uL Hgb (13.0-17.5) gm/dL Hct (39.0-53.0) % Neutrophils # (1.3-7.7) k/uL ABG HCO3 (21-25) mmol/L ABG Total CO2 (19-24) mmol/L ABG O2 Saturation (94-97) % BUN (9-20) mg/dL Creatinine (0.66-1.25) mg/dL Glucose (74-99) mg/dL POC Glucose (mg/dL) 154 H 161 H 150 H (75-99) mg/dL Calcium (8.4-10.2) mg/dL AST (17-59) U/L ALT (4-49) U/L Total Protein (6.3-8.2) g/dL Albumin (3.5-5.0) g/dL Microbiology - Last 24 Hours (Table) 02/10/19 01:18 Gram Stain - Preliminary Sputum Sputum Culture - Preliminary Assessment and Plan Assessment: Impression: Cardiac arrest 3, acute ST elevation myocardial infarction, requiring CPR and defibrillation. Followed by cardiac catheterization/urgent. Status post stenting of RCA Suspect severe anoxic brain injury, please refer to neurological consultation. Cardiogenic shock post cardiac arrest requiring pressors, patient remains on epinephrine drip.being titrated, presently on 0.07 mcg/kg/m Acute kidney injury, acute tubular necrosis, presently on hemodialysis. 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 History of hepatitis B Recommendation: Continue present supportive care measures, Continue ventilatory support. Continue hemodynamic support. Continue nutritional support./enteral feeding anoxic brain injury is suspected, patient is presently not weanable and no plans to do so. Condition remains extremely critical. Suspect high mortality. Patient has been in the hospital for almost a month. Critical care time is 35 minutes Time with Patient: Greater than 30
[2019-02-11 13:03] LABS: Glucose,Whole Blood 134 mg/dL (75-99)
--- NOTE | 2019-02-11 13:49 | PN ---
PROGRESS NOTE Patient is seen for followup for acute kidney injury. The patient was dialyzed yesterday. However, we were not able to get much fluid off. He is currently having an EEG done. Therefore, I could not see the patient. I discussed with nursing staff. He remains on a small dose of epinephrine at about 8 mcg. It is noted that patient has been running a temperature of 100.3 degrees to 100.6 degrees Fahrenheit. Heart rate about 102 per minute. He continues to have no significant urine output. FiO2 is at 70%. Patient's labs are reviewed. We will hold off on dialysis today and we will plan for dialysis and ultrafiltration again tomorrow. In the meantime, hopefully, we can try to wean down the pressors. The patient has been evaluated by Neurology, currently awaiting EEG report. However, he has not had any corneal reflexes or any purposeful movements. MMMICHAELL / IJN: [id number] /
--- NOTE | 2019-02-11 13:52 | EEG ---
ELECTROENCEPHALOGRAM REPORT DATE OF SERVICE: 02/11/2019 PREAMBLE: This is a 68-year-old male with cardiac arrest. This study is performed to evaluate for electrocerebral activity. EEG FINDINGS: A portable 21 channel digital EEG recording was accomplished utilizing the 10/20 international system with bipolar and referential montages. The background consists of moderately well developed, but poorly regulated, mixed frequency of moderate amplitude, generalized 4 to 6 Hz theta with some low-voltage fast frequency beta activity seen in bihemispheric region. Photic driving response was not seen. Different stages of sleep were not seen. No focal or generalized epileptiform activity was seen. IMPRESSION: This is an abnormal EEG due to background slowing of at least moderate degree. This is suggestive of generalized cerebral dysfunction, as can be seen with toxic metabolic encephalopathies or due to diffuse structural brain abnormality. No epileptiform activity was seen. Clinical correlation and followup EEG recommended, if clinically indicated. MMODL / IJN: [id number] /
[2019-02-11 14:12] LABS: Glucose,Whole Blood 163 mg/dL (75-99)
[2019-02-11 14:20] LABS: Glucose,Whole Blood 197 mg/dL (75-99)
[2019-02-11 14:20] LABS: Glucose,Whole Blood 151 mg/dL (75-99)
[2019-02-11 14:20] LABS: Glucose,Whole Blood 527 mg/dL (75-99)
[2019-02-11 14:20] LABS: Glucose,Whole Blood 492 mg/dL (75-99)
[2019-02-11 15:55] LABS: Glucose,Whole Blood 134 mg/dL (75-99)
--- NOTE | 2019-02-11 17:17 | P.PN ---
Subjective Progress Note Date: 02/11/19 Patient continues to be severely encephalopathic, unresponsive. According to the nursing report, she did try to do holiday from sedation, but patient has no significant meaningful response. He became tachypneic, and his breathing rate went up to 40 therefore she went back on sedation with propofol. Currently on propofol 50 g. Patient has sluggishly reacting pupil on the right. Patient has nonreactive surgical pupil from the past. Oculocephalics are mildly present. Corneals absent. Patient has a week gag. No response to painful stimuli. Objective - Vital Signs Vital signs: Vital Signs Temp 100.3 F H 02/11/19 12:00 Pulse 102 H 02/11/19 16:01 Resp 31 H 02/11/19 15:45 BP 119/65 02/11/19 15:45 Pulse Ox 99 02/11/19 15:45 Intake & Output 02/10/19 02/11/19 02/11/19 18:59 06:59 18:59 Intake Total 053.171 0728.486 815.920 Output Total 25 40 0 Balance 528.226 9333.486 815.920 Weight 103.1 kg 107.3 kg 107.3 kg Intake: IV 270 570 450 Sodium Chloride 0.9% 1, 270 570 450 000 ml @ 20 mls/hr IV . Q24H [place] Rx#:[id number] Intake, IV Titration 481.978 748.486 365.920 Amount EPINEPHrine 4 mg In 299.120 387.086 246.200 Dextrose 5% in Water 250 ml @ 0.01 MCG/KG/MIN 3. 619 mls/hr IV .Q24H [place] Rx#:[id number] Insulin Regular 100 unit 32.858 53.505 19.720 In Sodium Chloride 0.9% 100 ml @ Per Protocol IV .Q0M [place] Rx#:[id number] Piperacillin-Tazobactam 3 50 .375 gm In Sodium Chloride 0.9% 100 ml @ 25 mls/hr IVPB Q12HR [place] Rx #:[id number] Propofol 1,000 mg In 100.000 257.895 100.000 Empty Bag 1 bag @ Titrate IV .Q0M [place] Rx#: [id number] Sodium Chloride 0.9% 1, 50 000 ml @ 50 mls/hr IV . Q20H [facility] Rx#:[id number] Output: Urine 25 40 0 Hemodialysis 0 Other: Voiding Method Indwelling Catheter Indwelling Catheter # Bowel Movements 1 ABP, PAP, CO, CI - Last Documented Arterial Blood Pressure 154/69 - Exam As above. - Labs CBC & Chem 7: 02/11/19 05:00 02/11/19 05:00 Labs: Abnormal Lab Results - Last 24 Hours (Table) 02/09/19 02/09/19 02/10/19 Range/Units 17:58 18:00 17:56 WBC (3.8-10.6) k/uL RBC (4.30-5.90) m/uL Hgb (13.0-17.5) gm/dL Hct (39.0-53.0) % Neutrophils # (1.3-7.7) k/uL ABG HCO3 (21-25) mmol/L ABG Total CO2 (19-24) mmol/L ABG O2 Saturation (94-97) % BUN (9-20) mg/dL Creatinine (0.66-1.25) mg/dL Glucose (74-99) mg/dL POC Glucose (mg/dL) 492 H 527 H 184 H (75-99) mg/dL Calcium (8.4-10.2) mg/dL AST (17-59) U/L ALT (4-49) U/L Total Protein (6.3-8.2) g/dL Albumin (3.5-5.0) g/dL 02/10/19 02/10/19 02/10/19 Range/Units 19:08 20:03 21:07 WBC (3.8-10.6) k/uL RBC (4.30-5.90) m/uL Hgb (13.0-17.5) gm/dL Hct (39.0-53.0) % Neutrophils # (1.3-7.7) k/uL ABG HCO3 (21-25) mmol/L ABG Total CO2 (19-24) mmol/L ABG O2 Saturation (94-97) % BUN (9-20) mg/dL Creatinine (0.66-1.25) mg/dL Glucose (74-99) mg/dL POC Glucose (mg/dL) 192 H 201 H 198 H (75-99) mg/dL Calcium (8.4-10.2) mg/dL AST (17-59) U/L ALT (4-49) U/L Total Protein (6.3-8.2) g/dL Albumin (3.5-5.0) g/dL 02/10/19 02/10/19 02/11/19 Range/Units 22:06 23:00 00:01 WBC (3.8-10.6) k/uL RBC (4.30-5.90) m/uL Hgb (13.0-17.5) gm/dL Hct (39.0-53.0) % Neutrophils # (1.3-7.7) k/uL ABG HCO3 (21-25) mmol/L ABG Total CO2 (19-24) mmol/L ABG O2 Saturation (94-97) % BUN (9-20) mg/dL Creatinine (0.66-1.25) mg/dL Glucose (74-99) mg/dL POC Glucose (mg/dL) 188 H 155 H 192 H (75-99) mg/dL Calcium (8.4-10.2) mg/dL AST (17-59) U/L ALT (4-49) U/L Total Protein (6.3-8.2) g/dL Albumin (3.5-5.0) g/dL 02/11/19 02/11/19 02/11/19 Range/Units 00:58 01:01 02:07 WBC (3.8-10.6) k/uL RBC (4.30-5.90) m/uL Hgb (13.0-17.5) gm/dL Hct (39.0-53.0) % Neutrophils # (1.3-7.7) k/uL ABG HCO3 (21-25) mmol/L ABG Total CO2 (19-24) mmol/L ABG O2 Saturation (94-97) % BUN (9-20) mg/dL Creatinine (0.66-1.25) mg/dL Glucose (74-99) mg/dL POC Glucose (mg/dL) 151 H 197 H 149 H (75-99) mg/dL Calcium (8.4-10.2) mg/dL AST (17-59) U/L ALT (4-49) U/L Total Protein (6.3-8.2) g/dL Albumin (3.5-5.0) g/dL 02/11/19 02/11/19 02/11/19 Range/Units 03:07 04:04 05:00 WBC 16.8 H (3.8-10.6) k/uL RBC 2.65 L (4.30-5.90) m/uL Hgb 8.0 L (13.0-17.5) gm/dL Hct 24.5 L (39.0-53.0) % Neutrophils # 13.8 H (1.3-7.7) k/uL ABG HCO3 (21-25) mmol/L ABG Total CO2 (19-24) mmol/L ABG O2 Saturation (94-97) % BUN (9-20) mg/dL Creatinine (0.66-1.25) mg/dL Glucose (74-99) mg/dL POC Glucose (mg/dL) 192 H 193 H (75-99) mg/dL Calcium (8.4-10.2) mg/dL AST (17-59) U/L ALT (4-49) U/L Total Protein (6.3-8.2) g/dL Albumin (3.5-5.0) g/dL 02/11/19 02/11/19 02/11/19 Range/Units 05:00 05:05 06:07 WBC (3.8-10.6) k/uL RBC (4.30-5.90) m/uL Hgb (13.0-17.5) gm/dL Hct (39.0-53.0) % Neutrophils # (1.3-7.7) k/uL ABG HCO3 (21-25) mmol/L ABG Total CO2 (19-24) mmol/L ABG O2 Saturation (94-97) % BUN 35 H (9-20) mg/dL Creatinine 4.54 H (0.66-1.25) mg/dL Glucose 176 H (74-99) mg/dL POC Glucose (mg/dL) 192 H 172 H (75-99) mg/dL Calcium 7.8 L (8.4-10.2) mg/dL AST 139 H (17-59) U/L ALT 57 H (4-49) U/L Total Protein 5.5 L (6.3-8.2) g/dL Albumin 2.5 L (3.5-5.0) g/dL 02/11/19 02/11/19 02/11/19 Range/Units 07:07 07:29 08:00 WBC (3.8-10.6) k/uL RBC (4.30-5.90) m/uL Hgb (13.0-17.5) gm/dL Hct (39.0-53.0) % Neutrophils # (1.3-7.7) k/uL ABG HCO3 27 H (21-25) mmol/L ABG Total CO2 28 H (19-24) mmol/L ABG O2 Saturation 97.5 H (94-97) % BUN (9-20) mg/dL Creatinine (0.66-1.25) mg/dL Glucose (74-99) mg/dL POC Glucose (mg/dL) 168 H 185 H (75-99) mg/dL Calcium (8.4-10.2) mg/dL AST (17-59) U/L ALT (4-49) U/L Total Protein (6.3-8.2) g/dL Albumin (3.5-5.0) g/dL 02/11/19 02/11/19 02/11/19 Range/Units 09:19 10:25 11:08 WBC (3.8-10.6) k/uL RBC (4.30-5.90) m/uL Hgb (13.0-17.5) gm/dL Hct (39.0-53.0) % Neutrophils # (1.3-7.7) k/uL ABG HCO3 (21-25) mmol/L ABG Total CO2 (19-24) mmol/L ABG O2 Saturation (94-97) % BUN (9-20) mg/dL Creatinine (0.66-1.25) mg/dL Glucose (74-99) mg/dL POC Glucose (mg/dL) 127 H 154 H 161 H (75-99) mg/dL Calcium (8.4-10.2) mg/dL AST (17-59) U/L ALT (4-49) U/L Total Protein (6.3-8.2) g/dL Albumin (3.5-5.0) g/dL 02/11/19 02/11/19 02/11/19 Range/Units 11:51 12:52 14:01 WBC (3.8-10.6) k/uL RBC (4.30-5.90) m/uL Hgb (13.0-17.5) gm/dL Hct (39.0-53.0) % Neutrophils # (1.3-7.7) k/uL ABG HCO3 (21-25) mmol/L ABG Total CO2 (19-24) mmol/L ABG O2 Saturation (94-97) % BUN (9-20) mg/dL Creatinine (0.66-1.25) mg/dL Glucose (74-99) mg/dL POC Glucose (mg/dL) 150 H 134 H 163 H (75-99) mg/dL Calcium (8.4-10.2) mg/dL AST (17-59) U/L ALT (4-49) U/L Total Protein (6.3-8.2) g/dL Albumin (3.5-5.0) g/dL 02/11/19 Range/Units 15:43 WBC (3.8-10.6) k/uL RBC (4.30-5.90) m/uL Hgb (13.0-17.5) gm/dL Hct (39.0-53.0) % Neutrophils # (1.3-7.7) k/uL ABG HCO3 (21-25) mmol/L ABG Total CO2 (19-24) mmol/L ABG O2 Saturation (94-97) % BUN (9-20) mg/dL Creatinine (0.66-1.25) mg/dL Glucose (74-99) mg/dL POC Glucose (mg/dL) 134 H (75-99) mg/dL Calcium (8.4-10.2) mg/dL AST (17-59) U/L ALT (4-49) U/L Total Protein (6.3-8.2) g/dL Albumin (3.5-5.0) g/dL Microbiology - Last 24 Hours (Table) 02/10/19 01:18 Gram Stain - Preliminary Sputum Sputum Culture - Preliminary Assessment and Plan Assessment: * Status post witnessed cardiac arrest, with downtime of about 15-20 minutes * Anoxic encephalopathy, appears significant. * Toxic metabolic encephalopathy * Status post right below-knee amputation * Diabetes Plan: * EEG revealed moderate to severe background slowing. No epileptiform activity was seen. * Computed tomography scan of the head pending. Patient not medically stable to undergo CT. * Patient clinically not showing signs of improvement. * Other medical conditions as per IM and critical care.
--- NOTE | 2019-02-11 18:05 | P.PN ---
Subjective Progress Note Date: 02/11/19 Principal diagnosis: Cardiac arrest, acute inferior wall MT, status post stent placement This is 68-year-old gentleman was wasn't admitted to the hospital with ischemic toes and had surgery done. Yesterday patient had a cardiac arrest requiring resuscitation and multiple times. His EKG also showed evidence of inferior wall MT. Patient had a cardiac catheterization and stent placement of the RCA. Patient is still intubated. It appears that patient doesn't follow any comma nds. One of the people's is sluggishly reactive. Patient doesn't have any urine output. He is on dialysis. Hemodynamically patient is still on IV epinephrine at 10 mics. Attempts to wean off epinephrine results in hypotension. Is in sinus rhythm with rate of 80. Patient is getting aspirin, Brillinta and also Lipitor. Metoprolol is being held because of hypotension. Echo is going to be repeated. Prognosis guarded at this time. Patient may need a neurology evaluation. 02/11/2019: Patient remains unresponsive, intubated and on a ventilator. He had an EEG and final report is pending. Suspect the patient has severe anoxic injury of the brain. Patient is also on chronic dialysis. His creatinine is about 4.5. Apparently patient did not tolerate attempts at dialysis yesterday. Patient is still on epinephrine drip. Neurologically, patient is unresponsive. Right pupil shows sluggish reaction. Left pupil hasn't changes related to glaucoma. Corneal reflex is absent. Echo shows severely impaired LV function. His prognosis appears to be poor. We'll continue current management Objective - Vital Signs Vital signs: Vital Signs Temp 100.3 F H 02/11/19 12:00 Pulse 102 H 02/11/19 16:01 Resp 31 H 02/11/19 15:45 BP 119/65 02/11/19 15:45 Pulse Ox 99 02/11/19 15:45 Intake & Output 02/10/19 02/11/19 02/11/19 18:59 06:59 18:59 Intake Total 835.086 9156.486 815.920 Output Total 25 40 0 Balance 759.996 7163.486 815.920 Weight 103.1 kg 107.3 kg 107.3 kg Intake: IV 270 570 450 Sodium Chloride 0.9% 1, 270 570 450 000 ml @ 20 mls/hr IV . Q24H [place] Rx#:[id number] Intake, IV Titration 481.978 748.486 365.920 Amount EPINEPHrine 4 mg In 299.120 387.086 246.200 Dextrose 5% in Water 250 ml @ 0.01 MCG/KG/MIN 3. 619 mls/hr IV .Q24H [place] Rx#:[id number] Insulin Regular 100 unit 32.858 53.505 19.720 In Sodium Chloride 0.9% 100 ml @ Per Protocol IV .Q0M [place] Rx#:[id number] Piperacillin-Tazobactam 3 50 .375 gm In Sodium Chloride 0.9% 100 ml @ 25 mls/hr IVPB Q12HR [place] Rx #:[id number] Propofol 1,000 mg In 100.000 257.895 100.000 Empty Bag 1 bag @ Titrate IV .Q0M [place] Rx#: [id number] Sodium Chloride 0.9% 1, 50 000 ml @ 50 mls/hr IV . Q20H [place] Rx#:[id number] Output: Urine 25 40 0 Hemodialysis 0 Other: Voiding Method Indwelling Catheter Indwelling Catheter # Bowel Movements 1 ABP, PAP, CO, CI - Last Documented Arterial Blood Pressure 154/69 - Exam Patient is intubated and sedated. Hemodynamically maintaining his blood pressure with IV epinephrine. In sinus rhythm. His potassium is normal patient may need dialysis. Neurology consult may be requested. From Cardec standpoint we'll continue current medical therapy except holding metoprolol. GENERAL EXAM: Patient is intubated and sedated HEENT: Right pupil shows sluggish reaction. No corneal reflex NECK: No masses, no nuchal rigidity. CHEST: No chest wall deformity. LUNGS: Diminished breath sounds HEART: S1 and S2 normal ABDOMEN: No hepatosplenomegaly, normal bowel sounds, no guarding or rigidity. SKIN: No rashes CENTRAL NERVOUS SYSTEM: As per neurology EXTREMITIES: Status post aspiration of right leg - Labs CBC & Chem 7: 02/11/19 05:00 02/11/19 05:00 Labs: Abnormal Lab Results - Last 24 Hours (Table) 02/09/19 02/09/19 02/10/19 Range/Units 17:58 18:00 17:56 WBC (3.8-10.6) k/uL RBC (4.30-5.90) m/uL Hgb (13.0-17.5) gm/dL Hct (39.0-53.0) % Neutrophils # (1.3-7.7) k/uL ABG HCO3 (21-25) mmol/L ABG Total CO2 (19-24) mmol/L ABG O2 Saturation (94-97) % BUN (9-20) mg/dL Creatinine (0.66-1.25) mg/dL Glucose (74-99) mg/dL POC Glucose (mg/dL) 492 H 527 H 184 H (75-99) mg/dL Calcium (8.4-10.2) mg/dL AST (17-59) U/L ALT (4-49) U/L Total Protein (6.3-8.2) g/dL Albumin (3.5-5.0) g/dL 02/10/19 02/10/19 02/10/19 Range/Units 19:08 20:03 21:07 WBC (3.8-10.6) k/uL RBC (4.30-5.90) m/uL Hgb (13.0-17.5) gm/dL Hct (39.0-53.0) % Neutrophils # (1.3-7.7) k/uL ABG HCO3 (21-25) mmol/L ABG Total CO2 (19-24) mmol/L ABG O2 Saturation (94-97) % BUN (9-20) mg/dL Creatinine (0.66-1.25) mg/dL Glucose (74-99) mg/dL POC Glucose (mg/dL) 192 H 201 H 198 H (75-99) mg/dL Calcium (8.4-10.2) mg/dL AST (17-59) U/L ALT (4-49) U/L Total Protein (6.3-8.2) g/dL Albumin (3.5-5.0) g/dL 02/10/19 02/10/19 02/11/19 Range/Units 22:06 23:00 00:01 WBC (3.8-10.6) k/uL RBC (4.30-5.90) m/uL Hgb (13.0-17.5) gm/dL Hct (39.0-53.0) % Neutrophils # (1.3-7.7) k/uL ABG HCO3 (21-25) mmol/L ABG Total CO2 (19-24) mmol/L ABG O2 Saturation (94-97) % BUN (9-20) mg/dL Creatinine (0.66-1.25) mg/dL Glucose (74-99) mg/dL POC Glucose (mg/dL) 188 H 155 H 192 H (75-99) mg/dL Calcium (8.4-10.2) mg/dL AST (17-59) U/L ALT (4-49) U/L Total Protein (6.3-8.2) g/dL Albumin (3.5-5.0) g/dL 02/11/19 02/11/19 02/11/19 Range/Units 00:58 01:01 02:07 WBC (3.8-10.6) k/uL RBC (4.30-5.90) m/uL Hgb (13.0-17.5) gm/dL Hct (39.0-53.0) % Neutrophils # (1.3-7.7) k/uL ABG HCO3 (21-25) mmol/L ABG Total CO2 (19-24) mmol/L ABG O2 Saturation (94-97) % BUN (9-20) mg/dL Creatinine (0.66-1.25) mg/dL Glucose (74-99) mg/dL POC Glucose (mg/dL) 151 H 197 H 149 H (75-99) mg/dL Calcium (8.4-10.2) mg/dL AST (17-59) U/L ALT (4-49) U/L Total Protein (6.3-8.2) g/dL Albumin (3.5-5.0) g/dL 02/11/19 02/11/19 02/11/19 Range/Units 03:07 04:04 05:00 WBC 16.8 H (3.8-10.6) k/uL RBC 2.65 L (4.30-5.90) m/uL Hgb 8.0 L (13.0-17.5) gm/dL Hct 24.5 L (39.0-53.0) % Neutrophils # 13.8 H (1.3-7.7) k/uL ABG HCO3 (21-25) mmol/L ABG Total CO2 (19-24) mmol/L ABG O2 Saturation (94-97) % BUN (9-20) mg/dL Creatinine (0.66-1.25) mg/dL Glucose (74-99) mg/dL POC Glucose (mg/dL) 192 H 193 H (75-99) mg/dL Calcium (8.4-10.2) mg/dL AST (17-59) U/L ALT (4-49) U/L Total Protein (6.3-8.2) g/dL Albumin (3.5-5.0) g/dL 02/11/19 02/11/19 02/11/19 Range/Units 05:00 05:05 06:07 WBC (3.8-10.6) k/uL RBC (4.30-5.90) m/uL Hgb (13.0-17.5) gm/dL Hct (39.0-53.0) % Neutrophils # (1.3-7.7) k/uL ABG HCO3 (21-25) mmol/L ABG Total CO2 (19-24) mmol/L ABG O2 Saturation (94-97) % BUN 35 H (9-20) mg/dL Creatinine 4.54 H (0.66-1.25) mg/dL Glucose 176 H (74-99) mg/dL POC Glucose (mg/dL) 192 H 172 H (75-99) mg/dL Calcium 7.8 L (8.4-10.2) mg/dL AST 139 H (17-59) U/L ALT 57 H (4-49) U/L Total Protein 5.5 L (6.3-8.2) g/dL Albumin 2.5 L (3.5-5.0) g/dL 02/11/19 02/11/19 02/11/19 Range/Units 07:07 07:29 08:00 WBC (3.8-10.6) k/uL RBC (4.30-5.90) m/uL Hgb (13.0-17.5) gm/dL Hct (39.0-53.0) % Neutrophils # (1.3-7.7) k/uL ABG HCO3 27 H (21-25) mmol/L ABG Total CO2 28 H (19-24) mmol/L ABG O2 Saturation 97.5 H (94-97) % BUN (9-20) mg/dL Creatinine (0.66-1.25) mg/dL Glucose (74-99) mg/dL POC Glucose (mg/dL) 168 H 185 H (75-99) mg/dL Calcium (8.4-10.2) mg/dL AST (17-59) U/L ALT (4-49) U/L Total Protein (6.3-8.2) g/dL Albumin (3.5-5.0) g/dL 02/11/19 02/11/19 02/11/19 Range/Units 09:19 10:25 11:08 WBC (3.8-10.6) k/uL RBC (4.30-5.90) m/uL Hgb (13.0-17.5) gm/dL Hct (39.0-53.0) % Neutrophils # (1.3-7.7) k/uL ABG HCO3 (21-25) mmol/L ABG Total CO2 (19-24) mmol/L ABG O2 Saturation (94-97) % BUN (9-20) mg/dL Creatinine (0.66-1.25) mg/dL Glucose (74-99) mg/dL POC Glucose (mg/dL) 127 H 154 H 161 H (75-99) mg/dL Calcium (8.4-10.2) mg/dL AST (17-59) U/L ALT (4-49) U/L Total Protein (6.3-8.2) g/dL Albumin (3.5-5.0) g/dL 02/11/19 02/11/19 02/11/19 Range/Units 11:51 12:52 14:01 WBC (3.8-10.6) k/uL RBC (4.30-5.90) m/uL Hgb (13.0-17.5) gm/dL Hct (39.0-53.0) % Neutrophils # (1.3-7.7) k/uL ABG HCO3 (21-25) mmol/L ABG Total CO2 (19-24) mmol/L ABG O2 Saturation (94-97) % BUN (9-20) mg/dL Creatinine (0.66-1.25) mg/dL Glucose (74-99) mg/dL POC Glucose (mg/dL) 150 H 134 H 163 H (75-99) mg/dL Calcium (8.4-10.2) mg/dL AST (17-59) U/L ALT (4-49) U/L Total Protein (6.3-8.2) g/dL Albumin (3.5-5.0) g/dL 02/11/19 Range/Units 15:43 WBC (3.8-10.6) k/uL RBC (4.30-5.90) m/uL Hgb (13.0-17.5) gm/dL Hct (39.0-53.0) % Neutrophils # (1.3-7.7) k/uL ABG HCO3 (21-25) mmol/L ABG Total CO2 (19-24) mmol/L ABG O2 Saturation (94-97) % BUN (9-20) mg/dL Creatinine (0.66-1.25) mg/dL Glucose (74-99) mg/dL POC Glucose (mg/dL) 134 H (75-99) mg/dL Calcium (8.4-10.2) mg/dL AST (17-59) U/L ALT (4-49) U/L Total Protein (6.3-8.2) g/dL Albumin (3.5-5.0) g/dL Microbiology - Last 24 Hours (Table) 02/10/19 01:18 Gram Stain - Preliminary Sputum Sputum Culture - Preliminary Assessment and Plan (1) History of cardiac arrest Current Visit: Yes Status: Acute Code(s): Z86.74 - PERSONAL HISTORY OF SUDDEN CARDIAC ARREST SNOMED Code(s): 603374507 (2) Acute MT, inferior wall Current Visit: Yes Status: Acute Code(s): I21.19 - STEMI INVOLVING OTH CORONARY ARTERY OF INFERIOR WALL SNOMED Code(s): 87278684 (3) Ischemic leg Current Visit: Yes Status: Acute Code(s): I99.8 - OTHER DISORDER OF CIRCULATORY SYSTEM SNOMED Code(s): 814027795 (4) Chronic renal failure Current Visit: Yes Status: Acute Code(s): N18.9 - CHRONIC KIDNEY DISEASE, UNSPECIFIED SNOMED Code(s): 81081732 (5) Anoxic brain injury Current Visit: Yes Status: Acute Code(s): G93.1 - ANOXIC BRAIN DAMAGE, NOT ELSEWHERE CLASSIFIED SNOMED Code(s): 217464417 (6) Acute on chronic diastolic CHF (congestive heart failure) Current Visit: Yes Status: Acute Code(s): I50.33 - ACUTE ON CHRONIC DIASTOLIC (CONGESTIVE) HEART FAILURE SNOMED Code(s): 214736719 (7) Acute on chronic systolic CHF (congestive heart failure), NYHA class 1 Current Visit: Yes Status: Acute Code(s): I50.23 - ACUTE ON CHRONIC SYSTOLIC (CONGESTIVE) HEART FAILURE SNOMED Code(s): 690389010 Plan: Continue current management. Attempts to wean of epinephrine as tolerated. Possible hemodialysis. Patient is made no code. Family is considering possible comfort care.
[2019-02-11 18:18] LABS: Glucose,Whole Blood 187 mg/dL (75-99)
[2019-02-11 19:04] LABS: Glucose,Whole Blood 207 mg/dL (75-99)
[2019-02-11 20:02] LABS: Glucose,Whole Blood 147 mg/dL (75-99)
[2019-02-11] MEDS: LATANOPROST 0.005% OPHTH DROPS 2.5 ML BTL LEFT EYE SCH (21:05)
[2019-02-11 21:14] LABS: Glucose,Whole Blood 167 mg/dL (75-99)
[2019-02-11 22:16] LABS: Glucose,Whole Blood 218 mg/dL (75-99)
[2019-02-11 23:14] LABS: Glucose,Whole Blood 211 mg/dL (75-99)
[2019-02-12 00:14] LABS: Glucose,Whole Blood 229 mg/dL (75-99)
[2019-02-12 01:19] LABS: Glucose,Whole Blood 225 mg/dL (75-99)
[2019-02-12 02:05] LABS: Glucose,Whole Blood 220 mg/dL (75-99)
[2019-02-12 03:15] LABS: Glucose,Whole Blood 218 mg/dL (75-99)
[2019-02-12] MEDS: IPRATROPIUM-ALBUTEROL 3 ML NEB INHALATION SCH ×6 (03:36→23:40)
[2019-02-12] MEDS: PROPOFOL 1,000 MG in EMPTY BAG 1 BAG IV SCH ×5 (03:56→21:30)
[2019-02-12 04:25] LABS: Glucose,Whole Blood 216 mg/dL (75-99)
[2019-02-12] MEDS: EPINEPHrine 4 MG in DEXTROSE 5% IN WATER 250 ML IV SCH ×4 (04:56→18:07)
[2019-02-12 05:14] LABS: Glucose,Whole Blood 184 mg/dL (75-99)
[2019-02-12 05:19] LABS: Basophils # (A) 0.1 k/uL (0-0.2); Basophils % (A) 1 %; Eosinophils # (A) 0.5 k/uL (0-0.7); Eosinophils % (A) 3 %; HCT 23.4 % (39.0-53.0); HGB 7.3 gm/dL (13.0-17.5); Hypochromasia Slight; Lymphocytes # (A) 1.5 k/uL (1.0-4.8); Lymphocytes % (A) 10 %; MCH 29.3 pg (25.0-35.0); MCHC 31.4 g/dL (31.0-37.0); MCV 93.2 fL (80.0-100.0); Mean Platelet Volume 10.2; Monocytes # (A) 0.9 k/uL (0-1.0); Monocytes % (A) 6 %; Neutrophils % (A) 79 %; Platelet Count 180 k/uL (150-450); RBC 2.51 m/uL (4.30-5.90); RDW 15.1 % (11.5-15.5); WBC 15.1 k/uL (3.8-10.6)
[2019-02-12 05:30] LABS: Albumin 2.5 g/dL (3.5-5.0); Calcium 7.5 mg/dL (8.4-10.2); Potassium 4.1 mmol/L (3.5-5.1); Total Bilirubin 0.5 mg/dL (0.2-1.3); Total Protein 5.5 g/dL (6.3-8.2)
[2019-02-12 06:11] LABS: Glucose,Whole Blood 176 mg/dL (75-99)
[2019-02-12] MEDS: CALCIUM ACETATE 667 MG TAB PO SCH ×3 (06:15→17:07)
[2019-02-12] MEDS: NOREPINEPHRINE 4 MG in SODIUM CHLORIDE 0.9% 250 ML IV SCH ×2 (07:09→17:24)
[2019-02-12 07:18] LABS: Glucose,Whole Blood 182 mg/dL (75-99)
[2019-02-12 07:20] LABS: ABG Base Excess 0.4 mmol/L; ABG HCO3 25 mmol/L (21-25); ABG Oxygen Saturation 98.7 % (94-97); ABG PCO2 36 mmHg (35-45); ABG PH 7.44 (7.35-7.45); ABG PO2 114 mmHg (83-108); ABG TCO2 26 mmol/L (19-24)
--- NOTE | 2019-02-12 07:26 | XR ---
EXAMINATION TYPE: XR chest 1V portable DATE OF EXAM: 02/12/2019 HISTORY: Shortness of breath. COMPARISON: 02/11/2019 TECHNIQUE: Single view of the chest is submitted. FINDINGS: Indwelling tubes and catheters are stable. Cardiomegaly with pulmonary venous congestion scattered infiltrates and pleural effusions remain unch anged. Hilar and mediastinal structures are within normal limits. Degenerative changes are seen of the dorsal spine. IMPRESSION: 1. Cardiomegaly with pulmonary venous congestion scattered infiltrates and pleural effusions remain unchanged.
[2019-02-12] MEDS: METOPROLOL TARTRATE 25 MG TAB PO SCH ×2 (08:41→20:26)
[2019-02-12] MEDS: CHLORHEXIDINE GLUCONATE 15 ML CUP MUCOUS MEM SCH ×2 (08:41→20:26)
[2019-02-12] MEDS: SODIUM BICARBONATE TAB 650 MG TAB PO SCH ×2 (08:41→20:26)
[2019-02-12] MEDS: BRIMONIDINE TARTRATE 0.2% DROPS 5 ML BTL LEFT EYE SCH ×3 (08:42→22:12)
[2019-02-12] MEDS: ASPIRIN 81 MG PO SCH (08:42)
[2019-02-12] MEDS: TICAGRELOR 90 MG TAB PO SCH ×2 (08:42→20:26)
[2019-02-12] MEDS: DORZOLAMIDE HCL 2% DROPS 10 ML BTL LEFT EYE SCH ×3 (08:42→22:11)
[2019-02-12] MEDS: ATORVASTATIN 80 MG TAB PO SCH (08:42)
[2019-02-12] MEDS: PIPERACILLIN-TAZOBACTAM 3.375 GM in SODIUM CHLORIDE 0.9% 100 ML IVPB SCH ×2 (08:43→20:26)
[2019-02-12] MEDS: PANTOPRAZOLE 40 MG TABLET PO SCH (08:43)
[2019-02-12] MEDS: TIMOLOL 0.5% OPHTH DROPS 5 ML BTL LEFT EYE SCH ×2 (08:43→22:00)
--- NOTE | 2019-02-12 09:29 | P.PN ---
Subjective Progress Note Date: 02/12/19 Principal diagnosis: Cardiac arrest, acute inferior wall MT, status post stent placement This is 68-year-old gentleman was wasn't admitted to the hospital with ischemic toes and had surgery done. Yesterday patient had a cardiac arrest requiring resuscitation and multiple times. His EKG also showed evidence of inferior wall MT. Patient had a cardiac catheterization and stent placement of the RCA. Patient is still intubated. It appears that patient doesn't follow any comma nds. One of the people's is sluggishly reactive. Patient doesn't have any urine output. He is on dialysis. Hemodynamically patient is still on IV epinephrine at 10 mics. Attempts to wean off epinephrine results in hypotension. Is in sinus rhythm with rate of 80. Patient is getting aspirin, Brillinta and also Lipitor. Metoprolol is being held because of hypotension. Echo is going to be repeated. Prognosis guarded at this time. Patient may need a neurology evaluation. 02/11/2019: Patient remains unresponsive, intubated and on a ventilator. He had an EEG and final report is pending. Suspect the patient has severe anoxic injury of the brain. Patient is also on chronic dialysis. His creatinine is about 4.5. Apparently patient did not tolerate attempts at dialysis yesterday. Patient is still on epinephrine drip. Neurologically, patient is unresponsive. Right pupil shows sluggish reaction. Left pupil hasn't changes related to glaucoma. Corneal reflex is absent. Echo shows severely impaired LV function. His prognosis appears to be poor. We'll continue current management. 02/12/2019: Patient's critical status hasn't shown much improvement. EEG showed significant depressed activity consistent with a toxic encephalopathy. No seizure activity noted. He still on AP drip at 5 mics. Blood pressure is about 110/70. Chest x-ray shows bilateral infiltrate at the bases with some effusion. Neurologically, patient is not responsive. Patient to creatinine is high. Attempts are being made to dialyze him today. Prognosis is poor. Objective - Vital Signs Vital signs: Vital Signs Temp 99.9 F H 02/12/19 04:00 Pulse 84 02/12/19 07:46 Resp 26 H 02/12/19 06:00 BP 121/71 02/12/19 04:15 Pulse Ox 100 02/12/19 06:00 Intake & Output 02/11/19 02/12/19 02/12/19 18:59 06:59 18:59 Intake Total 6284.308 8974.442 163.045 Output Total 600 130 Balance 121.200 6804.442 163.045 Weight 107.3 kg Intake: IV 600 510 50 Sodium Chloride 0.9% 1, 600 510 50 000 ml @ 20 mls/hr IV . Q24H [place] Rx#:[id number] Intake, IV Titration 415.961 528.442 93.045 Amount EPINEPHrine 4 mg In 293.245 187.030 Dextrose 5% in Water 250 ml @ 0.01 MCG/KG/MIN 3. 619 mls/hr IV .Q24H [place] Rx#:[id number] Insulin Regular 100 unit 22.716 42.749 15.789 In Sodium Chloride 0.9% 100 ml @ Per Protocol IV .Q0M [place] Rx#:[id number] Piperacillin-Tazobactam 3 75 .375 gm In Sodium Chloride 0.9% 100 ml @ 25 mls/hr IVPB Q12HR [place] Rx #:[id number] Propofol 1,000 mg In 100.000 223.663 77.256 Empty Bag 1 bag @ Titrate IV .Q0M [place] Rx#: [id number] Tube Feeding 40 170 20 Other 90 Output: Urine 0 130 Stool 600 Other: Voiding Method Indwelling Catheter Indwelling Catheter # Bowel Movements 3 ABP, PAP, CO, CI - Last Documented Arterial Blood Pressure 116/48 - Exam Patient is intubated and sedated. Hemodynamically maintaining his blood pressure with IV epinephrine. In sinus rhythm. His potassium is normal patient may need dialysis. Neurology consult may be requested. From Cardec standpoint we'll continue current medical therapy except holding metoprolol. GENERAL EXAM: Patient is intubated and sedated HEENT: Right pupil shows sluggish reaction. No corneal reflex NECK: No masses, no nuchal rigidity. CHEST: No chest wall deformity. LUNGS: Diminished breath sounds HEART: S1 and S2 normal ABDOMEN: No hepatosplenomegaly, normal bowel sounds, no guarding or rigidity. SKIN: No rashes CENTRAL NERVOUS SYSTEM: As per neurology EXTREMITIES: Status post aspiration of right leg - Labs CBC & Chem 7: 02/12/19 05:00 02/12/19 05:00 Labs: Abnormal Lab Results - Last 24 Hours (Table) 02/09/19 02/09/19 02/11/19 Range/Units 17:58 18:00 00:58 WBC (3.8-10.6) k/uL RBC (4.30-5.90) m/uL Hgb (13.0-17.5) gm/dL Hct (39.0-53.0) % Neutrophils # (1.3-7.7) k/uL ABG pO2 (83-108) mmHg ABG Total CO2 (19-24) mmol/L ABG O2 Saturation (94-97) % BUN (9-20) mg/dL Creatinine (0.66-1.25) mg/dL Glucose (74-99) mg/dL POC Glucose (mg/dL) 492 H 527 H 151 H (75-99) mg/dL Calcium (8.4-10.2) mg/dL AST (17-59) U/L Total Protein (6.3-8.2) g/dL Albumin (3.5-5.0) g/dL 02/11/19 02/11/19 02/11/19 Range/Units 01:01 09:19 10:25 WBC (3.8-10.6) k/uL RBC (4.30-5.90) m/uL Hgb (13.0-17.5) gm/dL Hct (39.0-53.0) % Neutrophils # (1.3-7.7) k/uL ABG pO2 (83-108) mmHg ABG Total CO2 (19-24) mmol/L ABG O2 Saturation (94-97) % BUN (9-20) mg/dL Creatinine (0.66-1.25) mg/dL Glucose (74-99) mg/dL POC Glucose (mg/dL) 197 H 127 H 154 H (75-99) mg/dL Calcium (8.4-10.2) mg/dL AST (17-59) U/L Total Protein (6.3-8.2) g/dL Albumin (3.5-5.0) g/dL 02/11/19 02/11/19 02/11/19 Range/Units 11:08 11:51 12:52 WBC (3.8-10.6) k/uL RBC (4.30-5.90) m/uL Hgb (13.0-17.5) gm/dL Hct (39.0-53.0) % Neutrophils # (1.3-7.7) k/uL ABG pO2 (83-108) mmHg ABG Total CO2 (19-24) mmol/L ABG O2 Saturation (94-97) % BUN (9-20) mg/dL Creatinine (0.66-1.25) mg/dL Glucose (74-99) mg/dL POC Glucose (mg/dL) 161 H 150 H 134 H (75-99) mg/dL Calcium (8.4-10.2) mg/dL AST (17-59) U/L Total Protein (6.3-8.2) g/dL Albumin (3.5-5.0) g/dL 02/11/19 02/11/19 02/11/19 Range/Units 14:01 15:43 18:07 WBC (3.8-10.6) k/uL RBC (4.30-5.90) m/uL Hgb (13.0-17.5) gm/dL Hct (39.0-53.0) % Neutrophils # (1.3-7.7) k/uL ABG pO2 (83-108) mmHg ABG Total CO2 (19-24) mmol/L ABG O2 Saturation (94-97) % BUN (9-20) mg/dL Creatinine (0.66-1.25) mg/dL Glucose (74-99) mg/dL POC Glucose (mg/dL) 163 H 134 H 187 H (75-99) mg/dL Calcium (8.4-10.2) mg/dL AST (17-59) U/L Total Protein (6.3-8.2) g/dL Albumin (3.5-5.0) g/dL 02/11/19 02/11/19 02/11/19 Range/Units 18:53 19:51 21:03 WBC (3.8-10.6) k/uL RBC (4.30-5.90) m/uL Hgb (13.0-17.5) gm/dL Hct (39.0-53.0) % Neutrophils # (1.3-7.7) k/uL ABG pO2 (83-108) mmHg ABG Total CO2 (19-24) mmol/L ABG O2 Saturation (94-97) % BUN (9-20) mg/dL Creatinine (0.66-1.25) mg/dL Glucose (74-99) mg/dL POC Glucose (mg/dL) 207 H 147 H 167 H (75-99) mg/dL Calcium (8.4-10.2) mg/dL AST (17-59) U/L Total Protein (6.3-8.2) g/dL Albumin (3.5-5.0) g/dL 02/11/19 02/11/19 02/12/19 Range/Units 22:04 23:02 00:03 WBC (3.8-10.6) k/uL RBC (4.30-5.90) m/uL Hgb (13.0-17.5) gm/dL Hct (39.0-53.0) % Neutrophils # (1.3-7.7) k/uL ABG pO2 (83-108) mmHg ABG Total CO2 (19-24) mmol/L ABG O2 Saturation (94-97) % BUN (9-20) mg/dL Creatinine (0.66-1.25) mg/dL Glucose (74-99) mg/dL POC Glucose (mg/dL) 218 H 211 H 229 H (75-99) mg/dL Calcium (8.4-10.2) mg/dL AST (17-59) U/L Total Protein (6.3-8.2) g/dL Albumin (3.5-5.0) g/dL 02/12/19 02/12/19 02/12/19 Range/Units 01:07 01:54 03:04 WBC (3.8-10.6) k/uL RBC (4.30-5.90) m/uL Hgb (13.0-17.5) gm/dL Hct (39.0-53.0) % Neutrophils # (1.3-7.7) k/uL ABG pO2 (83-108) mmHg ABG Total CO2 (19-24) mmol/L ABG O2 Saturation (94-97) % BUN (9-20) mg/dL Creatinine (0.66-1.25) mg/dL Glucose (74-99) mg/dL POC Glucose (mg/dL) 225 H 220 H 218 H (75-99) mg/dL Calcium (8.4-10.2) mg/dL AST (17-59) U/L Total Protein (6.3-8.2) g/dL Albumin (3.5-5.0) g/dL 02/12/19 02/12/19 02/12/19 Range/Units 04:02 05:00 05:00 WBC 15.1 H (3.8-10.6) k/uL RBC 2.51 L (4.30-5.90) m/uL Hgb 7.3 L (13.0-17.5) gm/dL Hct 23.4 L (39.0-53.0) % Neutrophils # 12.0 H (1.3-7.7) k/uL ABG pO2 (83-108) mmHg ABG Total CO2 (19-24) mmol/L ABG O2 Saturation (94-97) % BUN 43 H (9-20) mg/dL Creatinine 5.68 H (0.66-1.25) mg/dL Glucose 164 H (74-99) mg/dL POC Glucose (mg/dL) 216 H (75-99) mg/dL Calcium 7.5 L (8.4-10.2) mg/dL AST 92 H (17-59) U/L Total Protein 5.5 L (6.3-8.2) g/dL Albumin 2.5 L (3.5-5.0) g/dL 02/12/19 02/12/19 02/12/19 Range/Units 05:02 05:59 07:06 WBC (3.8-10.6) k/uL RBC (4.30-5.90) m/uL Hgb (13.0-17.5) gm/dL Hct (39.0-53.0) % Neutrophils # (1.3-7.7) k/uL ABG pO2 (83-108) mmHg ABG Total CO2 (19-24) mmol/L ABG O2 Saturation (94-97) % BUN (9-20) mg/dL Creatinine (0.66-1.25) mg/dL Glucose (74-99) mg/dL POC Glucose (mg/dL) 184 H 176 H 182 H (75-99) mg/dL Calcium (8.4-10.2) mg/dL AST (17-59) U/L Total Protein (6.3-8.2) g/dL Albumin (3.5-5.0) g/dL 02/12/19 Range/Units 07:13 WBC (3.8-10.6) k/uL RBC (4.30-5.90) m/uL Hgb (13.0-17.5) gm/dL Hct (39.0-53.0) % Neutrophils # (1.3-7.7) k/uL ABG pO2 114 H (83-108) mmHg ABG Total CO2 26 H (19-24) mmol/L ABG O2 Saturation 98.7 H (94-97) % BUN (9-20) mg/dL Creatinine (0.66-1.25) mg/dL Glucose (74-99) mg/dL POC Glucose (mg/dL) (75-99) mg/dL Calcium (8.4-10.2) mg/dL AST (17-59) U/L Total Protein (6.3-8.2) g/dL Albumin (3.5-5.0) g/dL Assessment and Plan (1) History of cardiac arrest Current Visit: Yes Status: Acute Code(s): Z86.74 - PERSONAL HISTORY OF SUDDEN CARDIAC ARREST SNOMED Code(s): 155546491 (2) Acute MT, inferior wall Current Visit: Yes Status: Acute Code(s): I21.19 - STEMI INVOLVING OTH CORONARY ARTERY OF INFERIOR WALL SNOMED Code(s): 61294212 (3) Ischemic leg Current Visit: Yes Status: Acute Code(s): I99.8 - OTHER DISORDER OF CIRCULATORY SYSTEM SNOMED Code(s): 021447585 (4) Chronic renal failure Current Visit: Yes Status: Acute Code(s): N18.9 - CHRONIC KIDNEY DISEASE, UNSPECIFIED SNOMED Code(s): 26607417 (5) Anoxic brain injury Current Visit: Yes Status: Acute Code(s): G93.1 - ANOXIC BRAIN DAMAGE, NOT ELSEWHERE CLASSIFIED SNOMED Code(s): 971679101 (6) Acute on chronic diastolic CHF (congestive heart failure) Current Visit: Yes Status: Acute Code(s): I50.33 - ACUTE ON CHRONIC DIASTOLIC (CONGESTIVE) HEART FAILURE SNOMED Code(s): 510735127 (7) Acute on chronic systolic CHF (congestive heart failure), NYHA class 1 Current Visit: Yes Status: Acute Code(s): I50.23 - ACUTE ON CHRONIC SYSTOLIC (CONGESTIVE) HEART FAILURE SNOMED Code(s): 548811604 Plan: Continue current medical therapy. Dialysis possibly today. Patient is no code. If he doesn't improve, family may consider comfort care
[2019-02-12 09:36] LABS: Glucose,Whole Blood 149 mg/dL (75-99)
--- NOTE | 2019-02-12 10:14 | P.PN ---
Subjective Progress Note Date: 02/12/19 Principal diagnosis: Cardiac arrest 68-year-old male patient who got transferred to the intensive care unit after a acute cardiopulmonary arrest that occurred on the medical floor this morning. I am covering today for Dr. Dominguez and for that reason I am seeing this patient in the intensive care unit. Briefly, he has prolonged hypoxic respiratory failure that occurred following a infected gangrenous right foot for which the patient underwent a right below-knee amputation. He had a staphylococcal infection. He also developed acute kidney injury and the patient is currently on dialysis 3 times a week and his last dialysis session was done on Sunday. The patient has also [id number]-[id number] diabetes mellitus, hypertension and hypertensive heart and peripheral neuropathy and hyperlipidemia and COPDThe patient developed an acute cardiac arrest. The patient was found to be unresponsive this morning. He was found to be PA. Immediately, the core he was involved in the patient was given, 4 rounds of epinephrine, bicarbonate he was intubated and brought into the intensive care unit. Initial EKG showed atrial fibrillation. In addition to a significant ST segment elevation involving the inferior leads and a right bundle branch block patter . Within minutes after his arrival to the intensive care unit, the patient is second code which lasted for around 5 minut es and this was a PEA rhythm and currently with going into the third code. He is currently receiving epinephrine and CPR as the patient went into a PEA. Cardiology is on the case. He has seen the patient the bedside. Breath sounds are equal and bilateral. Potassium level is at 4.7. The blood gases that was done and I showed a pH of 7.01 with a pCO2 of 76 and pO2 of 140. His lactic acid level was 8.8. His BUN is at 43 with a creatinine of 5.0 and a serum bicarbonate this morning prior to the code was 25. His hemoglobin was at 10.1. White cell count of 8.7. Patient was evaluated today on 02/10/2019, intubated, mechanically ventilated, on very small dose of propofol, not responding to any stimuli. Patient had at least 3 episodes of cardiac arrest yesterday requiring reintubation, and required cardiac catheterization. His ventilator settings presently are tidal volume of 500 assist control rate of 20 FiO2 of 50% PEEP of 12. Patient is on propofol at 10 mcg/kg/m, he is on hemodialysis, he is on epinephrine at 0.075 mcg/kg/m. Chest x-ray showed right lower lobe consolidation. Possibly related to aspiration, hence his Zosyn was restarted today empirically. His IV fluid is at 25 mL per hour. And he is about to receive hemodialysis in the next few minutes. ABG this morning on 100% showed a pO2 of 348 pCO2 of 31 pH of 7.58. Electrolytes are normal BUN is 54 creatinine 5.47. WBC count is 17.1 hemoglobin is 9.3. Troponin 41,000. Yesterday the patient had successful stenting of totally occluded distal RCA and he was found to have intracoronary thrombus noted in the takeoff of the PLV. Remains on heparin. Reevaluated today on 02/11/2019, remains in the intensive care unit, intubated, mechanically ventilated. His ventilator settings are tidal volume of 500 assist control rate of 20 PEEP was increased at 12, FiO2 at 60%, remains on norepinephrine at 0.07 mcg/kg/m. I have changed today his PEEP up to 12 and I kept him on FiO2 at 60%. Chest x-ray continues to show evidence of pulmonary edema, no plans to ultrafiltrate the patient today. Patient will be started today on enteral feeding. He was seen by neurology, and it is felt that the patient has severe anoxic brain injury. As a matter of fact on my examination today, patient had no corneal reflexes, he had negative calorics, he does breathe on his own, and he at times asynchronous with the ventilator when sedation is on hold. But does not follow any instructions does not respond to any pain.ABG today showed a pO2 of 90 pCO2 of 39 pH of 7.44 WBC count is 16.8 hemoglobin is 8, electrolytes are normal BUN is 35 creatinine 4.54 Patient was reevaluated today on 02/12/2019, remains in the intensive care unit, remains on the same ventilator settings FiO2 is down to 50% from 60% yesterday, PEEP remains at 12, assist control rate of 20 and tidal volume of 500. Remains on epinephrine drip at 0.05 mcg/kg/m. Remains on propofol at 35 mcg/kg/m. Patient remains unresponsive, he gets asynchronous with the ventilator once he is off propofol, but no responses whatsoever including no responses to deep painful stimuli. Patient clearly sustained severe anoxic brain injury, and we should seriously consider comfort care measures on this patient, however family is not quite ready for this at this point yet. In the meantime we continue present supportive care measures, and the patient remains on mechanical ventilation, multiple cardiac meds as listed, remains on hemodialysis, empiric antibiotics, and a GI and DVT prophylaxis. ABG today showed a pO2 of 114 pCO2 of 36 pH of 7.44 hence I cut down the FiO2 from 60% to 50%. WBC count is 15.1 hemoglobin is 7.3, electrodes are normal BUN is 43 creatinine is 5.68, remains on hemodialysis. Objective - Vital Signs Vital signs: Vital Signs Temp 99.5 F 02/12/19 08:00 Pulse 75 02/12/19 10:00 Resp 21 02/12/19 10:00 BP 118/66 02/12/19 08:15 Pulse Ox 100 02/12/19 10:00 Intake & Output 02/11/19 02/12/19 02/12/19 18:59 06:59 18:59 Intake Total 5309.901 5266.442 473.045 Output Total 600 130 20 Balance 781.857 8031.442 453.045 Weight 107.3 kg Intake: IV 600 510 200 Sodium Chloride 0.9% 1, 600 510 200 000 ml @ 20 mls/hr IV . Q24H [place] Rx#:[id number] Intake, IV Titration 415.961 528.442 93.045 Amount EPINEPHrine 4 mg In 293.245 187.030 Dextrose 5% in Water 250 ml @ 0.01 MCG/KG/MIN 3. 619 mls/hr IV .Q24H [place] Rx#:[id number] Insulin Regular 100 unit 22.716 42.749 15.789 In Sodium Chloride 0.9% 100 ml @ Per Protocol IV .Q0M [place] Rx#:[id number] Piperacillin-Tazobactam 3 75 .375 gm In Sodium Chloride 0.9% 100 ml @ 25 mls/hr IVPB Q12HR [place] Rx #:[id number] Propofol 1,000 mg In 100.000 223.663 77.256 Empty Bag 1 bag @ Titrate IV .Q0M [place] Rx#: [id number] Tube Feeding 40 170 90 Other 90 90 Output: Urine 0 130 20 Stool 600 Other: Voiding Method Indwelling Catheter Indwelling Catheter Indwelling Catheter # Bowel Movements 3 ABP, PAP, CO, CI - Last Documented Arterial Blood Pressure 115/47 - Exam Physical Exam: Revealed 68-year-old white male obese comatose, intubated and ventilated. Head: Atraumatic, normocephalic. Endotracheal tube and orogastric tube are intact. HEENT:[Neck is supple.] [No neck masses.] [No thyromegaly.] [No JVD.] Moist mucous membranes, no neck masses, no JVD. Chest: [Symmetrical chest expansion, clear breath sound bilaterally no rhonchi and no wheezes. Cardiac Exam: [Normal S1 and S2, no S3 gallop, 2/6 systolic murmur thought the precordium.] Abdomen: [Obese, Soft, nontender, no megaly, no rebound, no guarding, normal bowel sounds.] Extremities: [No clubbing, 1+ bipedal, no cyanosis.] Right below knee amputation is noted. Neurological Exam: Patient is unresponsive to any stimuli. right pupil is sluggish to light, left pupil is dilated. Psychiatric could not be assessed. Skin: No rashes. Right below-knee amputation is intact. Wrapped with sterile dressing. - Labs CBC & Chem 7: 02/12/19 05:00 02/12/19 05:00 Labs: Abnormal Lab Results - Last 24 Hours (Table) 02/09/19 02/09/19 02/11/19 Range/Units 17:58 18:00 00:58 WBC (3.8-10.6) k/uL RBC (4.30-5.90) m/uL Hgb (13.0-17.5) gm/dL Hct (39.0-53.0) % Neutrophils # (1.3-7.7) k/uL ABG pO2 (83-108) mmHg ABG Total CO2 (19-24) mmol/L ABG O2 Saturation (94-97) % BUN (9-20) mg/dL Creatinine (0.66-1.25) mg/dL Glucose (74-99) mg/dL POC Glucose (mg/dL) 492 H 527 H 151 H (75-99) mg/dL Calcium (8.4-10.2) mg/dL AST (17-59) U/L Total Protein (6.3-8.2) g/dL Albumin (3.5-5.0) g/dL 02/11/19 02/11/1902/11/19 Range/Units 01:01 10:25 11:08 WBC (3.8-10.6) k/uL RBC (4.30-5.90) m/uL Hgb (13.0-17.5) gm/dL Hct (39.0-53.0) % Neutrophils # (1.3-7.7) k/uL ABG pO2 (83-108) mmHg ABG Total CO2 (19-24) mmol/L ABG O2 Saturation (94-97) % BUN (9-20) mg/dL Creatinine (0.66-1.25) mg/dL Glucose (74-99) mg/dL POC Glucose (mg/dL) 197 H 154 H 161 H (75-99) mg/dL Calcium (8.4-10.2) mg/dL AST (17-59) U/L Total Protein (6.3-8.2) g/dL Albumin (3.5-5.0) g/dL 02/11/19 02/11/19 02/11/19 Range/Units 11:51 12:52 14:01 WBC (3.8-10.6) k/uL RBC (4.30-5.90) m/uL Hgb (13.0-17.5) gm/dL Hct (39.0-53.0) % Neutrophils # (1.3-7.7) k/uL ABG pO2 (83-108) mmHg ABG Total CO2 (19-24) mmol/L ABG O2 Saturation (94-97) % BUN (9-20) mg/dL Creatinine (0.66-1.25) mg/dL Glucose (74-99) mg/dL POC Glucose (mg/dL) 150 H 134 H 163 H (75-99) mg/dL Calcium (8.4-10.2) mg/dL AST (17-59) U/L Total Protein (6.3-8.2) g/dL Albumin (3.5-5.0) g/dL 02/11/19 02/11/19 02/11/19 Range/Units 15:43 18:07 18:53 WBC (3.8-10.6) k/uL RBC (4.30-5.90) m/uL Hgb (13.0-17.5) gm/dL Hct (39.0-53.0) % Neutrophils # (1.3-7.7) k/uL ABG pO2 (83-108) mmHg ABG Total CO2 (19-24) mmol/L ABG O2 Saturation (94-97) % BUN (9-20) mg/dL Creatinine (0.66-1.25) mg/dL Glucose (74-99) mg/dL POC Glucose (mg/dL) 134 H 187 H 207 H (75-99) mg/dL Calcium (8.4-10.2) mg/dL AST (17-59) U/L Total Protein (6.3-8.2) g/dL Albumin (3.5-5.0) g/dL 02/11/19 02/11/19 02/11/19 Range/Units 19:51 21:03 22:04 WBC (3.8-10.6) k/uL RBC (4.30-5.90) m/uL Hgb (13.0-17.5) gm/dL Hct (39.0-53.0) % Neutrophils # (1.3-7.7) k/uL ABG pO2 (83-108) mmHg ABG Total CO2 (19-24) mmol/L ABG O2 Saturation (94-97) % BUN (9-20) mg/dL Creatinine (0.66-1.25) mg/dL Glucose (74-99) mg/dL POC Glucose (mg/dL) 147 H 167 H 218 H (75-99) mg/dL Calcium (8.4-10.2) mg/dL AST (17-59) U/L Total Protein (6.3-8.2) g/dL Albumin (3.5-5.0) g/dL 02/11/19 02/12/19 02/12/19 Range/Units 23:02 00:03 01:07 WBC (3.8-10.6) k/uL RBC (4.30-5.90) m/uL Hgb (13.0-17.5) gm/dL Hct (39.0-53.0) % Neutrophils # (1.3-7.7) k/uL ABG pO2 (83-108) mmHg ABG Total CO2 (19-24) mmol/L ABG O2 Saturation (94-97) % BUN (9-20) mg/dL Creatinine (0.66-1.25) mg/dL Glucose (74-99) mg/dL POC Glucose (mg/dL) 211 H 229 H 225 H (75-99) mg/dL Calcium (8.4-10.2) mg/dL AST (17-59) U/L Total Protein (6.3-8.2) g/dL Albumin (3.5-5.0) g/dL 02/12/19 02/12/19 02/12/19 Range/Units 01:54 03:04 04:02 WBC (3.8-10.6) k/uL RBC (4.30-5.90) m/uL Hgb (13.0-17.5) gm/dL Hct (39.0-53.0) % Neutrophils # (1.3-7.7) k/uL ABG pO2 (83-108) mmHg ABG Total CO2 (19-24) mmol/L ABG O2 Saturation (94-97) % BUN (9-20) mg/dL Creatinine (0.66-1.25) mg/dL Glucose (74-99) mg/dL POC Glucose (mg/dL) 220 H 218 H 216 H (75-99) mg/dL Calcium (8.4-10.2) mg/dL AST (17-59) U/L Total Protein (6.3-8.2) g/dL Albumin (3.5-5.0) g/dL 02/12/19 02/12/19 02/12/19 Range/Units 05:00 05:00 05:02 WBC 15.1 H (3.8-10.6) k/uL RBC 2.51 L (4.30-5.90) m/uL Hgb 7.3 L (13.0-17.5) gm/dL Hct 23.4 L (39.0-53.0) % Neutrophils # 12.0 H (1.3-7.7) k/uL ABG pO2 (83-108) mmHg ABG Total CO2 (19-24) mmol/L ABG O2 Saturation (94-97) % BUN 43 H (9-20) mg/dL Creatinine 5.68 H (0.66-1.25) mg/dL Glucose 164 H (74-99) mg/dL POC Glucose (mg/dL) 184 H (75-99) mg/dL Calcium 7.5 L (8.4-10.2) mg/dL AST 92 H (17-59) U/L Total Protein 5.5 L (6.3-8.2) g/dL Albumin 2.5 L (3.5-5.0) g/dL 02/12/19 02/12/19 02/12/19 Range/Units 05:59 07:06 07:13 WBC (3.8-10.6) k/uL RBC (4.30-5.90) m/uL Hgb (13.0-17.5) gm/dL Hct (39.0-53.0) % Neutrophils # (1.3-7.7) k/uL ABG pO2 114 H (83-108) mmHg ABG Total CO2 26 H (19-24) mmol/L ABG O2 Saturation 98.7 H (94-97) % BUN (9-20) mg/dL Creatinine (0.66-1.25) mg/dL Glucose (74-99) mg/dL POC Glucose (mg/dL) 176 H 182 H (75-99) mg/dL Calcium (8.4-10.2) mg/dL AST (17-59) U/L Total Protein (6.3-8.2) g/dL Albumin (3.5-5.0) g/dL 02/12/19 Range/Units 09:23 WBC (3.8-10.6) k/uL RBC (4.30-5.90) m/uL Hgb (13.0-17.5) gm/dL Hct (39.0-53.0) % Neutrophils # (1.3-7.7) k/uL ABG pO2 (83-108) mmHg ABG Total CO2 (19-24) mmol/L ABG O2 Saturation (94-97) % BUN (9-20) mg/dL Creatinine (0.66-1.25) mg/dL Glucose (74-99) mg/dL POC Glucose (mg/dL) 149 H (75-99) mg/dL Calcium (8.4-10.2) mg/dL AST (17-59) U/L Total Protein (6.3-8.2) g/dL Albumin (3.5-5.0) g/dL Assessment and Plan Assessment: Impression: Cardiac arrest 3, acute ST elevation myocardial infarction, requiring CPR and defibrillation. Status post emergent cardiac catheterization and stenting. Of RCA Status post stenting of RCA Suspect severe anoxic brain injury, please refer to neurological consultation. Cardiogenic shock post cardiac arrest requiring pressors, patient remains on epinephrine drip.being titrated, presently on 0.07 mcg/kg/m Acute kidney injury, acute tubular necrosis, presently on hemodialysis. 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 History of hepatitis B Recommendation: Continue present supportive care measures, Continue ventilatory support. Continue hemodynamic support. Continue nutritional support./enteral feeding anoxic brain injury is strongly suspected. patient is presently not weanable and no plans to do so. Condition remains extremely critical. Suspect high mortality. Patient has been in the hospital for almost a month. Considering his anoxic brain injury which seems to be severe, I believe we are dealing with a medical futility situation, and family would be approached again regarding possibly comfort care measures. I believe comfort care measures at this point is the most reasonable approach. Critical care time is 33 minutes Time with Patient: Greater than 30
[2019-02-12 10:17] LABS: Glucose,Whole Blood 143 mg/dL (75-99)
[2019-02-12 11:14] LABS: Glucose,Whole Blood 157 mg/dL (75-99)
[2019-02-12 12:25] LABS: Glucose,Whole Blood 155 mg/dL (75-99)
--- NOTE | 2019-02-12 13:39 | PN ---
PROGRESS NOTE Patient is seen for followup for acute kidney injury. He remains hemodialysis dependent. Patient was not dialyzed yesterday. There are plans for dialysis today. The EEG was done which showed generalized cerebral dysfunction. The patient is been seen by Neurology. CT scan has been ordered, but patient has been unstable for the CT scan. He remains with no urine output. FiO2 is at 50% with 12 of PEEP. The patient continues to have no corneal reflexes with no purposeful movements. EXAMINATION: ABDOMEN: Soft, non-tender, obese. Bilateral breath sounds are heard. HEART: Sounds are heard S1, S2. Edema 1+ noted. Right BKA noted. LABS: Sodium 138, potassium 4.1, chloride 103, BUN 43, creatinine 5.68, hemoglobin 7.3 g/dL. ASSESSMENT: 1. Oliguric acute tubular necrosis, currently hemodialysis dependent. We will plan for hemodialysis today. We will try to remove about 500 mL to 1 L of fluid. 2. Status post cardiac arrest with anoxic encephalopathy, being followed by Neurology status post EEG. 3. Acute hypoxic respiratory failure, currently on the vent. 4. Status post right below knee amputation for wet gangrene of the foot. 5. Status post acute myocardial infarction status post coronary stent. PLAN: Hemodialysis today. We will try to remove at least about a liter of fluid as tolerated. Previously we were not able to get any ultrafiltration as blood pressure was significantly low. MMODL / IJN: [id number] /
[2019-02-12] MEDS ORDERED: CISATRACURIUM 2 MG/ML 5 ML VIAL IV ONE (13:44)
--- NOTE | 2019-02-12 13:53 | P.PN ---
Subjective Progress Note Date: 02/12/19 Patient continues to be very severely encephalopathic, unresponsive. Patient currently on propofol 25 g. Patient is getting hemodialysis now. When the sedation is decreased, patient respiratory distress, breathing faster, abdominal movement and pulse ox decreases. No meaningful response noted at that time. Patient has sluggishly reacting pupil on the right. Patient has nonreactive surgical left pupil from the past. Oculocephalics are mildly present. Corneals absent. Patient has a week gag. No response to painful stimuli. Objective - Vital Signs Vital signs: Vital Signs Temp 100.6 F H 02/12/19 12:00 Pulse 98 02/12/19 13:30 Resp 20 02/12/19 13:30 BP 99/57 02/12/19 10:15 Pulse Ox 92 L 02/12/19 13:30 Intake & Output 02/11/19 02/12/19 02/12/19 18:59 06:59 18:59 Intake Total 9538.051 7535.442 793.925 Output Total 600 130 40 Balance 969.149 3769.442 753.925 Weight 107.3 kg Intake: IV 600 510 300 Sodium Chloride 0.9% 1, 600 510 300 000 ml @ 20 mls/hr IV . Q24H [place] Rx#:[id number] Intake, IV Titration 415.961 528.442 223.925 Amount EPINEPHrine 4 mg In 293.245 187.030 130.88 Dextrose 5% in Water 250 ml @ 0.01 MCG/KG/MIN 3. 619 mls/hr IV .Q24H [place] Rx#:[id number] Insulin Regular 100 unit 22.716 42.749 15.789 In Sodium Chloride 0.9% 100 ml @ Per Protocol IV .Q0M [place] Rx#:[id number] Piperacillin-Tazobactam 3 75 .375 gm In Sodium Chloride 0.9% 100 ml @ 25 mls/hr IVPB Q12HR [place] Rx #:[id number] Propofol 1,000 mg In 100.000 223.663 77.256 Empty Bag 1 bag @ Titrate IV .Q0M [place] Rx#: [id number] Tube Feeding 40 170 150 Other 90 120 Output: Urine 0 130 40 Stool 600 Other: Voiding Method Indwelling Catheter Indwelling Catheter Indwelling Catheter # Bowel Movements 3 ABP, PAP, CO, CI - Last Documented Arterial Blood Pressure 154/48 - Exam As above. - Labs CBC & Chem 7: 02/12/19 05:00 02/12/19 05:00 Labs: Abnormal Lab Results - Last 24 Hours (Table) 02/09/19 02/09/19 02/11/19 Range/Units 17:58 18:00 00:58 WBC (3.8-10.6) k/uL RBC (4.30-5.90) m/uL Hgb (13.0-17.5) gm/dL Hct (39.0-53.0) % Neutrophils # (1.3-7.7) k/uL ABG pO2 (83-108) mmHg ABG Total CO2 (19-24) mmol/L ABG O2 Saturation (94-97) % BUN (9-20) mg/dL Creatinine (0.66-1.25) mg/dL Glucose (74-99) mg/dL POC Glucose (mg/dL) 492 H 527 H 151 H (75-99) mg/dL Calcium (8.4-10.2) mg/dL AST (17-59) U/L Total Protein (6.3-8.2) g/dL Albumin (3.5-5.0) g/dL 02/11/19 02/11/19 02/11/19 Range/Units 01:01 14:01 15:43 WBC (3.8-10.6) k/uL RBC (4.30-5.90) m/uL Hgb (13.0-17.5) gm/dL Hct (39.0-53.0) % Neutrophils # (1.3-7.7) k/uL ABG pO2 (83-108) mmHg ABG Total CO2 (19-24) mmol/L ABG O2 Saturation (94-97) % BUN (9-20) mg/dL Creatinine (0.66-1.25) mg/dL Glucose (74-99) mg/dL POC Glucose (mg/dL) 197 H 163 H 134 H (75-99) mg/dL Calcium (8.4-10.2) mg/dL AST (17-59) U/L Total Protein (6.3-8.2) g/dL Albumin (3.5-5.0) g/dL 02/11/19 02/11/19 02/11/19 Range/Units 18:07 18:53 19:51 WBC (3.8-10.6) k/uL RBC (4.30-5.90) m/uL Hgb (13.0-17.5) gm/dL Hct (39.0-53.0) % Neutrophils # (1.3-7.7) k/uL ABG pO2 (83-108) mmHg ABG Total CO2 (19-24) mmol/L ABG O2 Saturation (94-97) % BUN (9-20) mg/dL Creatinine (0.66-1.25) mg/dL Glucose (74-99) mg/dL POC Glucose (mg/dL) 187 H 207 H 147 H (75-99) mg/dL Calcium (8.4-10.2) mg/dL AST (17-59) U/L Total Protein (6.3-8.2) g/dL Albumin (3.5-5.0) g/dL 02/11/19 02/11/19 02/11/19 Range/Units 21:03 22:04 23:02 WBC (3.8-10.6) k/uL RBC (4.30-5.90) m/uL Hgb (13.0-17.5) gm/dL Hct (39.0-53.0) % Neutrophils # (1.3-7.7) k/uL ABG pO2 (83-108) mmHg ABG Total CO2 (19-24) mmol/L ABG O2 Saturation (94-97) % BUN (9-20) mg/dL Creatinine (0.66-1.25) mg/dL Glucose (74-99) mg/dL POC Glucose (mg/dL) 167 H 218 H 211 H (75-99) mg/dL Calcium (8.4-10.2) mg/dL AST (17-59) U/L Total Protein (6.3-8.2) g/dL Albumin (3.5-5.0) g/dL 02/12/19 02/12/19 02/12/19 Range/Units 00:03 01:07 01:54 WBC (3.8-10.6) k/uL RBC (4.30-5.90) m/uL Hgb (13.0-17.5) gm/dL Hct (39.0-53.0) % Neutrophils # (1.3-7.7) k/uL ABG pO2 (83-108) mmHg ABG Total CO2 (19-24) mmol/L ABG O2 Saturation (94-97) % BUN (9-20) mg/dL Creatinine (0.66-1.25) mg/dL Glucose (74-99) mg/dL POC Glucose (mg/dL) 229 H 225 H 220 H (75-99) mg/dL Calcium (8.4-10.2) mg/dL AST (17-59) U/L Total Protein (6.3-8.2) g/dL Albumin (3.5-5.0) g/dL 02/12/19 02/12/19 02/12/19 Range/Units 03:04 04:02 05:00 WBC 15.1 H (3.8-10.6) k/uL RBC 2.51 L (4.30-5.90) m/uL Hgb 7.3 L (13.0-17.5) gm/dL Hct 23.4 L (39.0-53.0) % Neutrophils # 12.0 H (1.3-7.7) k/uL ABG pO2 (83-108) mmHg ABG Total CO2 (19-24) mmol/L ABG O2 Saturation (94-97) % BUN (9-20) mg/dL Creatinine (0.66-1.25) mg/dL Glucose (74-99) mg/dL POC Glucose (mg/dL) 218 H 216 H (75-99) mg/dL Calcium (8.4-10.2) mg/dL AST (17-59) U/L Total Protein (6.3-8.2) g/dL Albumin (3.5-5.0) g/dL 02/12/19 02/12/19 02/12/19 Range/Units 05:00 05:02 05:59 WBC (3.8-10.6) k/uL RBC (4.30-5.90) m/uL Hgb (13.0-17.5) gm/dL Hct (39.0-53.0) % Neutrophils # (1.3-7.7) k/uL ABG pO2 (83-108) mmHg ABG Total CO2 (19-24) mmol/L ABG O2 Saturation (94-97) % BUN 43 H (9-20) mg/dL Creatinine 5.68 H (0.66-1.25) mg/dL Glucose 164 H (74-99) mg/dL POC Glucose (mg/dL) 184 H 176 H (75-99) mg/dL Calcium 7.5 L (8.4-10.2) mg/dL AST 92 H (17-59) U/L Total Protein 5.5 L (6.3-8.2) g/dL Albumin 2.5 L (3.5-5.0) g/dL 02/12/19 02/12/19 02/12/19 Range/Units 07:06 07:13 09:23 WBC (3.8-10.6) k/uL RBC (4.30-5.90) m/uL Hgb (13.0-17.5) gm/dL Hct (39.0-53.0) % Neutrophils # (1.3-7.7) k/uL ABG pO2 114 H (83-108) mmHg ABG Total CO2 26 H (19-24) mmol/L ABG O2 Saturation 98.7 H (94-97) % BUN (9-20) mg/dL Creatinine (0.66-1.25) mg/dL Glucose (74-99) mg/dL POC Glucose (mg/dL) 182 H 149 H (75-99) mg/dL Calcium (8.4-10.2) mg/dL AST (17-59) U/L Total Protein (6.3-8.2) g/dL Albumin (3.5-5.0) g/dL 02/12/19 02/12/19 02/12/19 Range/Units 10:06 11:03 12:14 WBC (3.8-10.6) k/uL RBC (4.30-5.90) m/uL Hgb (13.0-17.5) gm/dL Hct (39.0-53.0) % Neutrophils # (1.3-7.7) k/uL ABG pO2 (83-108) mmHg ABG Total CO2 (19-24) mmol/L ABG O2 Saturation (94-97) % BUN (9-20) mg/dL Creatinine (0.66-1.25) mg/dL Glucose (74-99) mg/dL POC Glucose (mg/dL) 143 H 157 H 155 H (75-99) mg/dL Calcium (8.4-10.2) mg/dL AST (17-59) U/L Total Protein (6.3-8.2) g/dL Albumin (3.5-5.0) g/dL Microbiology - Last 24 Hours (Table) 02/10/19 01:18 Gram Stain - Final Sputum Sputum Culture - Final Assessment and Plan Assessment: * Status post witnessed cardiac arrest, with downtime of about 15-20 minutes * Anoxic encephalopathy, appears significant. * Toxic metabolic encephalopathy * Status post right below-knee amputation * Diabetes Plan: * EEG revealed moderate to severe background slowing. No epileptiform activity was seen. * Computed tomography scan of the head pending. Patient not medically stable to undergo CT. * Patient clinically not showing signs of improvement. * Other medical conditions as per IM and critical care.
[2019-02-12 14:08] LABS: Glucose,Whole Blood 141 mg/dL (75-99)
[2019-02-12 16:35] LABS: Glucose,Whole Blood 138 mg/dL (75-99)
[2019-02-12] MEDS: INSULIN REGULAR 100 UNIT in SODIUM CHLORIDE 0.9% 100 ML IV SCH (17:23)
[2019-02-12 17:34] LABS: Glucose,Whole Blood 147 mg/dL (75-99)
[2019-02-12 18:20] LABS: Glucose,Whole Blood 176 mg/dL (75-99)
[2019-02-12 19:11] LABS: Glucose,Whole Blood 181 mg/dL (75-99)
--- NOTE | 2019-02-12 19:38 | P.PN ---
Subjective Progress Note Date: 02/12/19 Refugio Saenz, is a 68-year-old male who presented to [facility] emergency room with pain in the right foot, he was evaluated in emergency room and had blackish discoloration of the right fifth toe with surrounding erythema and tenderness, patient was started on IV antibiotics Zosyn, vancomycin, and clindamycin, he was admitted to medical floor vascular surgery consultation was requested for possible amputation due to evidence of gangrene. Infectious disease consultation was requested. Patient has a known history of insulin-dependent diabetes mellitus, his glucose level was well controlled up until September of this year his A1c in June was 7.1 and in September was 7.3 however apparently patient stopped taking his insulin and his medications and his A1c was up to 9.8 in November, he has a known history of right foot ulcer he was admitted to the hospital with right foot cellulitis and ulcer in 2014 and he was followed at the wound care clinic in 2015 however he was doing well up until recently. Patient also has a known history of hypertension, hyperlipidemia, he denies any history of coronary artery disease or congestive heart failure, he had an echocardiogram done in 2014 at that time he had normal left ventricular function was normal ejection fraction, no significant valvular disease and no pulmonary hypertension. 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 On 01/17/2019 patient's alert and oriented 3. Patient had fourth and fifth toe amputation with Dr. Edward this morning. Patient having some low blood pressure will give 500 mL bolus. Patient denies chest pain or shortness of breath. Patient denies nausea vomiting or diarrhea. Patient is having some increased pain to foot area pain medications ordered 01/18/2019, patient seen eval examined while covering for Dr. Granger, waking up this morning slightly slow to respond but not confused, breathing comfortably denies any chest pain labs reviewed today patient has been evaluated by Dr. Bassett, white cell count is coming down to 19,000, lactic acid level is normalized, patient has been on broad-spectrum antibiotics with vascular surgery on board 01/19/2019, patient seen and evaluated examined in the ICU intubated on full ventilator support, patient had gradual loss of consciousness has been more lethargic arterial blood gases were checked shows hypercapnic and hypoxic respiratory failure was intubated in the ICU, patient has been placed on propo fol he was volume depleted depleted aggressive fluid resuscitation were performed, is still requiring levophed intermittently, patient was also noted to be hypoglycemic 7030 insulin and other oral hypoglycemic agents were discontinued, ultrasound of the abdomen has been performed which is reviewed no obvious hydronephrosis seen, patient has decreased urine output along with rising BUN/creatinine appeared to be acute tubular necrosis, patient also requiring intermittent bolus of D10 for hypoglycemia, wounds has been evaluated by vascular surgery noted recommendation, patient has very poor venous access, will put a central line in, critical care time 45 minutes during procedure, due to altered mental status CT of the head was performed which was negative On 01/20/2019 patient remains in the intensive care unit on mechanical ventilation. Levophed has been on hold blood pressures has sustained. Creatinine has increased to 4.17 and bun 56. Nephrology services are following. Per nursing staff patient does follow commands during sedation holiday ABGs have improved. Discussed case with vascular surgeon nurse practitioner possible BKA discussion. White blood cell decreasing to 16.0. Critical care services are following. Patient remains on Zosyn for IV antibiotics. Infectious disease following 01/21/2019 patient remains on mechanical ventilation on in the intensive care unit. Patient remains sedated, on propofol. However per nursing staff patient does follow commands during sedation holiday. Patient is on 50% FiO2, 5 PEEP, tidal volume 500. Levophed off since 01/20/20. Blood pressure remains in the 130's-150's systolic. Creatinine 4.35 from 4.17 and BUN 57 from 56, Calcium 7.0, phosphorus 5.9 Nephrology is following. Orogastric tube replaced this morning. Per nursing staff OG tube was coiled in patient's mouth with tube feeds running. Chest x-ray repeated, no significant change from previous. ABG improving, still metabolic acidosis. WBC of 14.1 down from 16. Afebrile. Infectious disease is following patient is maintained on Zosyn. Will send C. diff sample due to new onset diarrhea for 1 day. Hyperglycemia noted (glucose 200's). Will discuss tube feed formula with dietary. If no changes can be made will adjust sliding scale. On 01/22/2019 patient remains sedated on mechanical ventilation in the intensive care unit. Per nursing staff patient is to have a BKA today with Dr. Edward. Patient remains off pressors, blood pressure has been stable. Chest x-ray repeated this morning, per pulmonary. No significant change in ABGs. Creatinine continues to increase, 4.84 today BUN 60, patient is still making adequate urine output nephrology is following. Tube feeds on hold, for pending OR. WBC 14.2, temperature overnight 100F. Please is following patient is maintained on Zosyn. C. diff sample was negative. 01/23/2019 patient remains sedated and on mechanical ventilation in the ICU. He underwent right BKA yesterday, 01/22/[address] Edward. Estimated blood loss 150 mL. He had a temp of 100 last night. Urine output is about 50 mL per hour. Creatinine has gone down from 4.84-4.82. Nephrology is following closely. No plans for hemodialysis yet. Patient's blood sugars are starting to become more elevated. They're in the 180s to 200s. Tube feedings are being adjusted. White count 13.7 hemoglobin 10.3 On 01/24/2019 patient remains sedated on mechanical ventilation in the intensive care unit. Decreased urine output throughout night. Creatinine 5.15 and bun 68. Patient remains on insulin drip. WBC 14.1. Patient having low-grade temps. Patient remains closely followed by critical care consulting providers On 01/25/2019 patient was seen and examined in the intensive care unit, he is currently alert and maintained on BiPAP trial, he is making more urine output, and no hemodialysis is scheduled at this time, creatinine improved, down from 5.15-4.44 white blood count down to 11.3 patient is followed by nephrology, infectious disease, pulmonary and critical care and vascular surgery On 01/26/2019 patient was seen and examined in the ICU, he is intubated sedated maintained on mechanical ventilation, creatinine went up today and he was started on hemodialysis, Zosyn has today, at this time will resume Zosyn, we have asked infectious disease to see patient and reassess antibiotics, otherwise patient is stable there is no fever or chills, he continues to have a rectal tube and having large amount of diarrhea, C. diff was checked and was negative will repeat test today. On 01/27/2019 patient remains on mechanical ventilation in the intensive care unit. Creatinine trending down today 4.76 and bun 77. Patient remains on Lasix drip per nephrology services. White count 11.8. She remains on IV Zosyn. Sedation holiday performed per nursing staff and critical care recommendation. On 01/28/2019 patient remains in the intensive care unit on mechanical ventilation. Sedation currently turned off. Patient is awake and following commands possible extubation today per critical care. Patient also received hemodialysis this will be the patient's third round of hemodialysis. Creatinine is trending down 4.44. Patient remains on Lasix drip. On 01/29/2019 patient remains in ICU intubated sedated maintained on mechanical ventilation, he had to CPAP trials yesterday, he is still maintained on hemodialysis, creatinine is elevated at 4.8 and BUN 89. On 01/30/2019 patient remains on mechanical ventilation in the intensive care unit. Patient is off sedation at this time and following commands. CPAP trial in place. Possible extubation today. Patient currently getting hemodialysis. Permanent hemodialysis catheter placed yesterday. Creatinine is trending down. Patient taken off insulin drip. on 01/31/2019 patient remains in intensive care unit on mechanical ventilation. Discussed case with critical care doctor Dr. Dominguez Yesterday. Patient unable to wean. we'll continue to monitor patient over the weekend and consider possible trach next week. Patient also received hemodialysis yesterday. On 02/01/2019 patient was seen and examined in the ICU he is intubated and ma intained on mechanical ventilation sedation is being stopped now for CPAP trial on 02/02/2019 patient was seen and examined in the ICU he has been extubated since yesterday, he is tolerating well maintained on oxygen via nasal cannula, he seems somnolent however he is opening his eyes and answering questions by nodding his head and trying to speak, there is no fever or chills no headache or dizziness no chest pain no shortness of breath he has occasional cough no nausea or vomiting no abdominal pain. on 02/03/2019 patient is currently sitting up in chair on nasal cannula. Patient does wake up and follow commands. Per nursing staff antibiotics due to ID is following per nursing will get a hold of infectious disease to further evaluate need for antibiotics. at this time patient denies chest pain or shortness of breath. Patient denies nausea vomiting or diarrhea. Patient denie s any urinary burning or frequency. patient to receive hemodialysis today remains on IV Lasix on 02/04/2019 patient is currently resting comfortably in bed. Patient is alert and oriented. Per nursing staff patient no longer needs antibiotics Dr. Bassett is following for infectious disease.patient received dialysis yesterday will receive hemodialysis again tomorrow maintained on IV Lasix. Elevated blood pressure. Hydralazine by mouth has been added. At this time patient denies chest pain or shortness of breath. Patient denies nausea vomiting or diarrhea. Patient denies any urinary burning or frequency. on 02/05/2019 patient is currently resting comfortably in chair. Per nursing staff patient had episode of increased lethargy last night requiring BiPAP and Narcan. per critical care and narcotics and benzos were DC'd at this time. Patient is now awake and alert 3. Patient able to follow commands and answer all questions. Patient denies any chest pain or shortness of breath. Patient denies nausea vomiting or diarrhea. Patient denies any urinary burning or frequency. 02/06/2019 patient is currently resting comfortably in bed.Patient did undergo hemodialysis yesterday. Lasix has been decreased per nephrology. Patient denies chest pain or shortness of breath. Patient denies vomiting or diarrhea. Patient denies any urinary burning or frequency. Working on discharge planning possible discharge to ECF next week. On 02/07/2019 patient has moved out of the intensive care unit to [facility] care. Patient currently getting hemodialysis. Discussed case with nephrology services planning to do dialysis today and hold off during the weekends assess patient renal function on Sunday. Also patient is planning to be discharged to ECF now. This time patient denies chest pain. Patient denies nausea vomiting or diarrhea. Patient having some mild discomfort back will add Tylenol. Patient denies any urinary burning or frequency edward catheter remains in place. On 02/08/2019 patient was seen and examined on the telemetry floor he is alert responsive in no apparent distress he was more confused today, there is no fever or chills no headache or dizziness no chest pain no shortness of breath no cough no nausea or vomiting no abdominal pain no diarrhea no burning with urination no frequency or urgency and no hematuria. On 02/09/2019 patient had cardiac arrest this morning he was coded multiple times and was transferred to intensive care unit, he was seen by Dr. Bear who was covering for Dr. Dominguez, he was also seen by cardiology EKG revealed ST elevation in inferior leads patient was taken to the bed laborer for acute inferior wall NC. On 02/10/2019 patient is currently in the intensive care unit on mechanical ventilation. Patient is status post cardiac arrest. Patient was taken to the cardiac Learning Manager and found to have been a percent occluded RCA. Patient did receive stent in currently on Brilinta. Patient is currently on mechanical v entilation with sedation and epinephrine drip. Currently receiving hemodialysis. Critical care services are following. On 02/11/2019 patient remains in the intensive care unit on mechanical ventila tion. Patient was evaluated by neurology services EEG and computed tomography scan of the brain has been ordered. Per nursing staff patient may not be stable enough for CT at this time. Patient remains on epinephrine drip for blood pressure control. Patient maintained on IV Zosyn per critical care. Patient to receive hemodialysis tomorrow 12/13/2018. On 02/12/2019 patient was seen and examined in the ICU, he is intubated sedated maintained on mechanical ventilation, he is not tolerating weaning off sedation, he is having difficulty tolerating hemodialysis, today the was approached i n regard to possibility of terminal weaning and Comfort care only, patient will think about it and will rediscuss again tomorrow . Objective - Vital Signs Vital signs: Vital Signs Temp 99.1 F 02/12/19 16:00 Pulse 80 02/12/19 19:00 Resp 26 H 02/12/19 19:00 BP 116/61 02/12/19 19:00 Pulse Ox 100 02/12/19 19:00 Intake & Output 02/12/19 02/12/19 02/13/19 06:59 18:59 06:59 Intake Total 3286.725 4808.044 82.133 Output Total 130 217 Balance 3308.385 5828.044 82.133 Intake: IV 510 540 20 Sodium Chloride 0.9% 1, 510 540 20 000 ml @ 20 mls/hr IV . Q24H [place] Rx#:[id number] Intake, IV Titration 528.442 561.044 23.133 Amount EPINEPHrine 4 mg In 187.030 250.00 20.507 Dextrose 5% in Water 250 ml @ 0.01 MCG/KG/MIN 3. 619 mls/hr IV .Q24H [place] Rx#:[id number] Insulin Regular 100 unit 42.749 42.529 2.626 In Sodium Chloride 0.9% 100 ml @ Per Protocol IV .Q0M [place] Rx#:[id number] Piperacillin-Tazobactam 3 75 .375 gm In Sodium Chloride 0.9% 100 ml @ 25 mls/hr IVPB Q12HR [place] Rx #:[id number] Propofol 1,000 mg In 223.663 268.515 Empty Bag 1 bag @ Titrate IV .Q0M [place] Rx#: [id number] Tube Feeding 170 300 39 Other 90 150 Output: Urine 130 40 Hemodialysis 177 Other: Voiding Method Indwelling Catheter Indwelling Catheter ABP, PAP, CO, CI - Last Documented Arterial Blood Pressure 147/52 - Exam HEENT head normocephalic and atraumatic Neck is supple no JVD no goiter no lymphadenopathy Chest exam reveals diminished lung sounds, a few scattered rhonchi no wheezing Cardiac exam reveals regular heart sounds S1 and S2 no gallops no murmurs Abdomen is obese, soft nontender no organomegaly with normal bowel sounds Extremity right BKA. Dressing is clean dry and intact Neuro currently on mechanical ventilation and sedation unequal pupils left greater than right. Right pupil sluggish. Patient had eye surgery previously unable to recall for what but does report this is chronic. No other neuro deficits noted - Labs CBC & Chem 7: 02/12/19 05:00 02/12/19 05:00 Labs: Abnormal Lab Results - Last 24 Hours (Table) 02/11/19 02/11/19 02/11/19 Range/Units 19:51 21:03 22:04 WBC (3.8-10.6) k/uL RBC (4.30-5.90) m/uL Hgb (13.0-17.5) gm/dL Hct (39.0-53.0) % Neutrophils # (1.3-7.7) k/uL ABG pO2 (83-108) mmHg ABG Total CO2 (19-24) mmol/L ABG O2 Saturation (94-97) % BUN (9-20) mg/dL Creatinine (0.66-1.25) mg/dL Glucose (74-99) mg/dL POC Glucose (mg/dL) 147 H 167 H 218 H (75-99) mg/dL Calcium (8.4-10.2) mg/dL AST (17-59) U/L Total Protein (6.3-8.2) g/dL Albumin (3.5-5.0) g/dL 02/11/19 02/12/19 02/12/19 Range/Units 23:02 00:03 01:07 WBC (3.8-10.6) k/uL RBC (4.30-5.90) m/uL Hgb (13.0-17.5) gm/dL Hct (39.0-53.0) % Neutrophils # (1.3-7.7) k/uL ABG pO2 (83-108) mmHg ABG Total CO2 (19-24) mmol/L ABG O2 Saturation (94-97) % BUN (9-20) mg/dL Creatinine (0.66-1.25) mg/dL Glucose (74-99) mg/dL POC Glucose (mg/dL) 211 H 229 H 225 H (75-99) mg/dL Calcium (8.4-10.2) mg/dL AST (17-59) U/L Total Protein (6.3-8.2) g/dL Albumin (3.5-5.0) g/dL 02/12/19 02/12/19 02/12/19 Range/Units 01:54 03:04 04:02 WBC (3.8-10.6) k/uL RBC (4.30-5.90) m/uL Hgb (13.0-17.5) gm/dL Hct (39.0-53.0) % Neutrophils # (1.3-7.7) k/uL ABG pO2 (83-108) mmHg ABG Total CO2 (19-24) mmol/L ABG O2 Saturation (94-97) % BUN (9-20) mg/dL Creatinine (0.66-1.25) mg/dL Glucose (74-99) mg/dL POC Glucose (mg/dL) 220 H 218 H 216 H (75-99) mg/dL Calcium (8.4-10.2) mg/dL AST (17-59) U/L Total Protein (6.3-8.2) g/dL Albumin (3.5-5.0) g/dL 02/12/19 02/12/19 02/12/19 Range/Units 05:00 05:00 05:02 WBC 15.1 H (3.8-10.6) k/uL RBC 2.51 L (4.30-5.90) m/uL Hgb 7.3 L (13.0-17.5) gm/dL Hct 23.4 L (39.0-53.0) % Neutrophils # 12.0 H (1.3-7.7) k/uL ABG pO2 (83-108) mmHg ABG Total CO2 (19-24) mmol/L ABG O2 Saturation (94-97) % BUN 43 H (9-20) mg/dL Creatinine 5.68 H (0.66-1.25) mg/dL Glucose 164 H (74-99) mg/dL POC Glucose (mg/dL) 184 H (75-99) mg/dL Calcium 7.5 L (8.4-10.2) mg/dL AST 92 H (17-59) U/L Total Protein 5.5 L (6.3-8.2) g/dL Albumin 2.5 L (3.5-5.0) g/dL 02/12/19 02/12/19 02/12/19 Range/Units 05:59 07:06 07:13 WBC (3.8-10.6) k/uL RBC (4.30-5.90) m/uL Hgb (13.0-17.5) gm/dL Hct (39.0-53.0) % Neutrophils # (1.3-7.7) k/uL ABG pO2 114 H (83-108) mmHg ABG Total CO2 26 H (19-24) mmol/L ABG O2 Saturation 98.7 H (94-97) % BUN (9-20) mg/dL Creatinine (0.66-1.25) mg/dL Glucose (74-99) mg/dL POC Glucose (mg/dL) 176 H 182 H (75-99) mg/dL Calcium (8.4-10.2) mg/dL AST (17-59) U/L Total Protein (6.3-8.2) g/dL Albumin (3.5-5.0) g/dL 02/12/19 02/12/19 02/12/19 Range/Units 09:23 10:06 11:03 WBC (3.8-10.6) k/uL RBC (4.30-5.90) m/uL Hgb (13.0-17.5) gm/dL Hct (39.0-53.0) % Neutrophils # (1.3-7.7) k/uL ABG pO2 (83-108) mmHg ABG Total CO2 (19-24) mmol/L ABG O2 Saturation (94-97) % BUN (9-20) mg/dL Creatinine (0.66-1.25) mg/dL Glucose (74-99) mg/dL POC Glucose (mg/dL) 149 H 143 H 157 H (75-99) mg/dL Calcium (8.4-10.2) mg/dL AST (17-59) U/L Total Protein (6.3-8.2) g/dL Albumin (3.5-5.0) g/dL 02/12/19 02/12/19 02/12/19 Range/Units 12:14 13:56 16:23 WBC (3.8-10.6) k/uL RBC (4.30-5.90) m/uL Hgb (13.0-17.5) gm/dL Hct (39.0-53.0) % Neutrophils # (1.3-7.7) k/uL ABG pO2 (83-108) mmHg ABG Total CO2 (19-24) mmol/L ABG O2 Saturation (94-97) % BUN (9-20) mg/dL Creatinine (0.66-1.25) mg/dL Glucose (74-99) mg/dL POC Glucose (mg/dL) 155 H 141 H 138 H (75-99) mg/dL Calcium (8.4-10.2) mg/dL AST (17-59) U/L Total Protein (6.3-8.2) g/dL Albumin (3.5-5.0) g/dL 02/12/19 02/12/19 02/12/19 Range/Units 17:22 18:08 19:00 WBC (3.8-10.6) k/uL RBC (4.30-5.90) m/uL Hgb (13.0-17.5) gm/dL Hct (39.0-53.0) % Neutrophils # (1.3-7.7) k/uL ABG pO2 (83-108) mmHg ABG Total CO2 (19-24) mmol/L ABG O2 Saturation (94-97) % BUN (9-20) mg/dL Creatinine (0.66-1.25) mg/dL Glucose (74-99) mg/dL POC Glucose (mg/dL) 147 H 176 H 181 H (75-99) mg/dL Calcium (8.4-10.2) mg/dL AST (17-59) U/L Total Protein (6.3-8.2) g/dL Albumin (3.5-5.0) g/dL Microbiology - Last 24 Hours (Table) 02/10/19 01:18 Gram Stain - Final Sputum Sputum Culture - Final Assessment and Plan Plan: #1 cardiac arrest secondary to acute ST elevation inferior wall NC requiring multiple prolonged codes.underwent cardiac cath with stents to RCA. Currently maintained on mechanical ventilation. Epinephrine drip in place. Chest x-ray completed showing improvement in lung volume irrigation. Pulmonary and critical care service is following. Patient currently maintained on Zosyn. Post cardiac cath 2-D echo completed showing EF of 35-40% #2. Anoxic encephalopathy and toxic metabolic encephalopathy post prolonged cardiac arrest. Neurology services are following. Patient will undergo EEG. Computed tomography scan has been ordered for when patient is stable #3 gangrene involving the right fifth toe with surrounding cellulitis Status post amputation of fourth and fifth toe with Dr. Edward and status post right BKA. #4 sepsis present on admission as evidenced by fever, leukocytosis, and elevated lactic acid. wound cultures growing gram-negative bacilli. White blood cell improving down to 9.3. patient has completed course of antibiotics per infectious disease no need for antibiotics at this time #5 acute hypoxic and hypercapnic respiratory failure with altered mental status changes secondary to severe sepsis. Patient was transferred to the intensive care unit and placed on mechanical ventilation. patient has been successfully extubated to 2 L. #6. Hypotension secondary to septic shock requiring Levophed for pressure support. resolved #7. Acute kidney injury secondary to ATN secondary to hypotension as well as vancomycin toxicity. Nephrology services are following. Ultrasound completed showing no evidence of hydronephrosis. currently receiving hemodialysis. Permanent hemodialysis catheter placed on 01/29/2019. On 02/10/2018 patient receiving hemodialysis #8. history of essential hypertension. Cardiology services following. EF 50- 55%. Per cardiology services no evidence of acute coronary syndrome at this time. hydralazine has been added by mouth #9. insulin-dependent diabetes mellitus, with poor control due to noncompliance last hemoglobin A1c was 9.8 at this time will hold glipizide, Januvia and metformin, and cover was insulin to sliding scale will adjust medications as needed. Blood sugars have been in the 200s after episode of hypoglycemia. Patient currently on insulin drip for tight blood sugar control. Post cardiac arrest patient started back on insulin drip #10. underlying history of diabetic complications of peripheral neuropathy and retinopathy. #11. poor compliance with medical management, patient had extensive counseling in the last year, his A1c was down to 7.1 in June however it was up to 9.8 again recently. #12 underlying history of hyperlipidemia maintained on atorvastatin, on hold. #13. Hypoglycemia. Home meds DC'd. Tube feedings have been initiated. Hypoglycemia has resolved #14. volume overload. Patient maintained on IV Lasix. Nephrology services are following #15. History of glaucoma with previous surgeries to left eye. Unequal pupils which patient reports is chronic. patient maintained on multiple eyedrops DVT prophylaxis heparin. GI prophylaxis Protonix Critical care, vascular surgery, infectious disease, cardiology and nephrology services following
[2019-02-12 20:21] LABS: Glucose,Whole Blood 217 mg/dL (75-99)
[2019-02-12] MEDS: LATANOPROST 0.005% OPHTH DROPS 2.5 ML BTL LEFT EYE SCH (22:00)
[2019-02-12 22:07] LABS: Glucose,Whole Blood 222 mg/dL (75-99)
[2019-02-12 23:32] LABS: Glucose,Whole Blood 218 mg/dL (75-99)
[2019-02-13] MEDS: PROPOFOL 1,000 MG in EMPTY BAG 1 BAG IV SCH ×6 (01:24→23:06)
[2019-02-13 01:42] LABS: Glucose,Whole Blood 219 mg/dL (75-99)
[2019-02-13 02:32] LABS: Glucose,Whole Blood 226 mg/dL (75-99)
[2019-02-13] MEDS: IPRATROPIUM-ALBUTEROL 3 ML NEB INHALATION SCH ×5 (03:21→20:41)
[2019-02-13 03:35] LABS: Glucose,Whole Blood 221 mg/dL (75-99)
[2019-02-13 04:45] LABS: Basophils # (A) 0.1 k/uL (0-0.2); Basophils % (A) 1 %; Eosinophils # (A) 0.5 k/uL (0-0.7); Eosinophils % (A) 5 %; HCT 21.9 % (39.0-53.0); Hypochromasia Moderate; Lymphocytes # (A) 0.8 k/uL (1.0-4.8); Lymphocytes % (A) 8 %; MCH 29.9 pg (25.0-35.0); MCHC 32.1 g/dL (31.0-37.0); Mean Platelet Volume 11.4; Monocytes # (A) 0.6 k/uL (0-1.0); Monocytes % (A) 5 %; Neutrophils # (A) 8.6 k/uL (1.3-7.7); Neutrophils % (A) 81 %; Platelet Count 138 k/uL (150-450); RBC 2.35 m/uL (4.30-5.90); RDW 14.9 % (11.5-15.5); WBC 10.7 k/uL (3.8-10.6)
[2019-02-13 04:48] LABS: Glucose,Whole Blood 215 mg/dL (75-99)
[2019-02-13 04:57] LABS: Albumin 2.5 g/dL (3.5-5.0); Calcium 7.3 mg/dL (8.4-10.2); Potassium 3.7 mmol/L (3.5-5.1); Total Bilirubin 0.5 mg/dL (0.2-1.3); Total Protein 5.5 g/dL (6.3-8.2)
[2019-02-13 05:39] LABS: Glucose,Whole Blood 191 mg/dL (75-99)
[2019-02-13] MEDS: CALCIUM ACETATE 667 MG TAB PO SCH ×3 (06:43→17:25)
[2019-02-13 06:51] LABS: Glucose,Whole Blood 183 mg/dL (75-99)
[2019-02-13 07:11] LABS: Glucose,Whole Blood 169 mg/dL (75-99)
[2019-02-13 07:11] LABS: ABG Base Excess 0.5 mmol/L; ABG HCO3 25 mmol/L (21-25); ABG Oxygen Saturation 99.1 % (94-97); ABG PCO2 37 mmHg (35-45); ABG PH 7.44 (7.35-7.45); ABG PO2 119 mmHg (83-108); ABG TCO2 26 mmol/L (19-24)
[2019-02-13] MEDS: NOREPINEPHRINE 4 MG in SODIUM CHLORIDE 0.9% 250 ML IV SCH ×2 (07:48→22:18)
[2019-02-13] MEDS: SODIUM BICARBONATE TAB 650 MG TAB PO SCH ×2 (08:08→20:15)
[2019-02-13] MEDS: PIPERACILLIN-TAZOBACTAM 3.375 GM in SODIUM CHLORIDE 0.9% 100 ML IVPB SCH ×2 (08:08→20:14)
[2019-02-13] MEDS: TICAGRELOR 90 MG TAB PO SCH ×2 (08:08→20:15)
[2019-02-13] MEDS: CHLORHEXIDINE GLUCONATE 15 ML CUP MUCOUS MEM SCH ×2 (08:08→20:15)
[2019-02-13] MEDS: BRIMONIDINE TARTRATE 0.2% DROPS 5 ML BTL LEFT EYE SCH ×3 (08:08→22:03)
[2019-02-13] MEDS: ASPIRIN 81 MG PO SCH (08:08)
[2019-02-13] MEDS: ATORVASTATIN 80 MG TAB PO SCH (08:08)
[2019-02-13] MEDS: TIMOLOL 0.5% OPHTH DROPS 5 ML BTL LEFT EYE SCH ×2 (08:09→20:16)
[2019-02-13] MEDS: METOPROLOL TARTRATE 25 MG TAB PO SCH ×2 (08:09→20:14)
[2019-02-13] MEDS: DORZOLAMIDE HCL 2% DROPS 10 ML BTL LEFT EYE SCH ×3 (08:09→22:03)
[2019-02-13] MEDS: PANTOPRAZOLE 40 MG TABLET PO SCH (08:09)
[2019-02-13 08:18] LABS: Glucose,Whole Blood 145 mg/dL (75-99)
--- NOTE | 2019-02-13 08:50 | XR ---
EXAMINATION TYPE: XR chest 1V portable DATE OF EXAM: 02/13/2019 COMPARISON: 02/12/2019 HISTORY: Shortness of breath FINDINGS: There are bilateral pleural effusions with cardiomegaly and bibasilar infiltrate. There is a diffuse interstitial pattern. ET and NG tube noted. Bilateral central venous catheter seen. No pneumothorax. IMPRESSION: 1. Correlate for CHF versus pneumonia.
[2019-02-13] MEDS: INSULIN REGULAR 100 UNIT in SODIUM CHLORIDE 0.9% 100 ML IV SCH (08:57)
[2019-02-13 09:08] LABS: Glucose,Whole Blood 133 mg/dL (75-99)
--- NOTE | 2019-02-13 09:58 | P.PN ---
Subjective Progress Note Date: 02/13/19 Principal diagnosis: Cardiac arrest, acute inferior wall MT, status post stent placement This is 68-year-old gentleman was wasn't admitted to the hospital with ischemic toes and had surgery done. Yesterday patient had a cardiac arrest requiring resuscitation and multiple times. His EKG also showed evidence of inferior wall MT. Patient had a cardiac catheterization and stent placement of the RCA. Patient is still intubated. It appears that patient doesn't follow any comma nds. One of the people's is sluggishly reactive. Patient doesn't have any urine output. He is on dialysis. Hemodynamically patient is still on IV epinephrine at 10 mics. Attempts to wean off epinephrine results in hypotension. Is in sinus rhythm with rate of 80. Patient is getting aspirin, Brillinta and also Lipitor. Metoprolol is being held because of hypotension. Echo is going to be repeated. Prognosis guarded at this time. Patient may need a neurology evaluation. 02/11/2019: Patient remains unresponsive, intubated and on a ventilator. He had an EEG and final report is pending. Suspect the patient has severe anoxic injury of the brain. Patient is also on chronic dialysis. His creatinine is about 4.5. Apparently patient did not tolerate attempts at dialysis yesterday. Patient is still on epinephrine drip. Neurologically, patient is unresponsive. Right pupil shows sluggish reaction. Left pupil hasn't changes related to glaucoma. Corneal reflex is absent. Echo shows severely impaired LV function. His prognosis appears to be poor. We'll continue current management. 02/12/2019: Patient's critical status hasn't shown much improvement. EEG showed significant depressed activity consistent with a toxic encephalopathy. No seizure activity noted. He still on AP drip at 5 mics. Blood pressure is about 110/70. Chest x-ray shows bilateral infiltrate at the bases with some effusion. Neurologically, patient is not responsive. Patient to creatinine is high. Attempts are being made to dialyze him today. Prognosis is poor. 02-13: Patient's remains unresponsive. Patient continues to maintain sinus rhythm. No arrhythmias dictated. Overall his critical status is stable. Patient received dialysis yesterday. His BUN/creatinine showed improvement. Main issue seemed to be encephalopathy and neurological status. Continue supportive care. Prognosis is poor Objective - Vital Signs Vital signs: Vital Signs Temp 100.7 F H 02/13/19 08:00 Pulse 85 02/13/19 08:00 Resp 23 02/13/19 08:00 BP 113/64 02/13/19 08:00 Pulse Ox 100 02/13/19 08:00 Intake & Output 02/12/19 02/13/19 02/13/19 18:59 06:59 18:59 Intake Total 7660.189 0759.977 371.737 Output Total 217 55 0 Balance 2396.538 2742.977 371.737 Intake: IV 540 570 150 Sodium Chloride 0.9% 1, 540 20 000 ml @ 20 mls/hr IV . Q24H [place] Rx#:[id number] Sodium Chloride 0.9% 1, 550 150 000 ml @ 50 mls/hr IV . Q20H [place] Rx#:[id number] Intake, IV Titration 561.044 409.977 9.737 Amount EPINEPHrine 4 mg In 250.00 20.507 Dextrose 5% in Water 250 ml @ 0.01 MCG/KG/MIN 3. 619 mls/hr IV .Q24H [place] Rx#:[id number] Insulin Regular 100 unit 42.529 89.470 9.737 In Sodium Chloride 0.9% 100 ml @ Per Protocol IV .Q0M [place] Rx#:[id number] Propofol 1,000 mg In 268.515 300 Empty Bag 1 bag @ Titrate IV .Q0M [place] Rx#: [id number] Tube Feeding 300 468 117 Other 150 90 95 Output: Urine 40 55 0 Hemodialysis 177 Other: Voiding Method Indwelling Catheter Indwelling Catheter Indwelling Catheter ABP, PAP, CO, CI - Last Documented Arterial Blood Pressure 148/54 - Exam Patient is intubated and sedated. Hemodynamically maintaining his blood pressure with IV epinephrine. In sinus rhythm. His potassium is normal patient may need dialysis. Neurology consult may be requested. From Cardec standpoint we'll continue current medical therapy except holding metoprolol. GENERAL EXAM: Patient is intubated and sedated HEENT: Right pupil shows sluggish reaction. No corneal reflex NECK: No masses, no nuchal rigidity. CHEST: No chest wall deformity. LUNGS: Diminished breath sounds HEART: S1 and S2 normal ABDOMEN: No hepatosplenomegaly, normal bowel sounds, no guarding or rigidity. SKIN: No rashes CENTRAL NERVOUS SYSTEM: As per neurology EXTREMITIES: Status post aspiration of right leg - Labs CBC & Chem 7: 02/13/19 04:25 02/13/19 04:25 Labs: Abnormal Lab Results - Last 24 Hours (Table) 02/12/19 02/12/19 02/12/19 Range/Units 10:06 11:03 12:14 WBC (3.8-10.6) k/uL RBC (4.30-5.90) m/uL Hgb (13.0-17.5) gm/dL Hct (39.0-53.0) % Plt Count (150-450) k/uL Neutrophils # (1.3-7.7) k/uL Lymphocytes # (1.0-4.8) k/uL ABG pO2 (83-108) mmHg ABG Total CO2 (19-24) mmol/L ABG O2 Saturation (94-97) % Sodium (137-145) mmol/L BUN (9-20) mg/dL Creatinine (0.66-1.25) mg/dL Glucose (74-99) mg/dL POC Glucose (mg/dL) 143 H 157 H 155 H (75-99) mg/dL Calcium (8.4-10.2) mg/dL AST (17-59) U/L Total Protein (6.3-8.2) g/dL Albumin (3.5-5.0) g/dL 02/12/19 02/12/19 02/12/19 Range/Units 13:56 16:23 17:22 WBC (3.8-10.6) k/uL RBC (4.30-5.90) m/uL Hgb (13.0-17.5) gm/dL Hct (39.0-53.0) % Plt Count (150-450) k/uL Neutrophils # (1.3-7.7) k/uL Lymphocytes # (1.0-4.8) k/uL ABG pO2 (83-108) mmHg ABG Total CO2 (19-24) mmol/L ABG O2 Saturation (94-97) % Sodium (137-145) mmol/L BUN (9-20) mg/dL Creatinine (0.66-1.25) mg/dL Glucose (74-99) mg/dL POC Glucose (mg/dL) 141 H 138 H 147 H (75-99) mg/dL Calcium (8.4-10.2) mg/dL AST (17-59) U/L Total Protein (6.3-8.2) g/dL Albumin (3.5-5.0) g/dL 02/12/19 02/12/19 02/12/19 Range/Units 18:08 19:00 19:59 WBC (3.8-10.6) k/uL RBC (4.30-5.90) m/uL Hgb (13.0-17.5) gm/dL Hct (39.0-53.0) % Plt Count (150-450) k/uL Neutrophils # (1.3-7.7) k/uL Lymphocytes # (1.0-4.8) k/uL ABG pO2 (83-108) mmHg ABG Total CO2 (19-24) mmol/L ABG O2 Saturation (94-97) % Sodium (137-145) mmol/L BUN (9-20) mg/dL Creatinine (0.66-1.25) mg/dL Glucose (74-99) mg/dL POC Glucose (mg/dL) 176 H 181 H 217 H (75-99) mg/dL Calcium (8.4-10.2) mg/dL AST (17-59) U/L Total Protein (6.3-8.2) g/dL Albumin (3.5-5.0) g/dL 02/12/19 02/12/19 02/13/19 Range/Units 21:37 23:10 01:20 WBC (3.8-10.6) k/uL RBC (4.30-5.90) m/uL Hgb (13.0-17.5) gm/dL Hct (39.0-53.0) % Plt Count (150-450) k/uL Neutrophils # (1.3-7.7) k/uL Lymphocytes # (1.0-4.8) k/uL ABG pO2 (83-108) mmHg ABG Total CO2 (19-24) mmol/L ABG O2 Saturation (94-97) % Sodium (137-145) mmol/L BUN (9-20) mg/dL Creatinine (0.66-1.25) mg/dL Glucose (74-99) mg/dL POC Glucose (mg/dL) 222 H 218 H 219 H (75-99) mg/dL Calcium (8.4-10.2) mg/dL AST (17-59) U/L Total Protein (6.3-8.2) g/dL Albumin (3.5-5.0) g/dL 02/13/19 02/13/19 02/13/19 Range/Units 02:11 03:13 04:25 WBC 10.7 H (3.8-10.6) k/uL RBC 2.35 L (4.30-5.90) m/uL Hgb 7.0 L (13.0-17.5) gm/dL Hct 21.9 L (39.0-53.0) % Plt Count 138 L (150-450) k/uL Neutrophils # 8.6 H (1.3-7.7) k/uL Lymphocytes # 0.8 L (1.0-4.8) k/uL ABG pO2 (83-108) mmHg ABG Total CO2 (19-24) mmol/L ABG O2 Saturation (94-97) % Sodium (137-145) mmol/L BUN (9-20) mg/dL Creatinine (0.66-1.25) mg/dL Glucose (74-99) mg/dL POC Glucose (mg/dL) 226 H 221 H (75-99) mg/dL Calcium (8.4-10.2) mg/dL AST (17-59) U/L Total Protein (6.3-8.2) g/dL Albumin (3.5-5.0) g/dL 02/13/19 02/13/19 02/13/19 Range/Units 04:25 04:26 05:18 WBC (3.8-10.6) k/uL RBC (4.30-5.90) m/uL Hgb (13.0-17.5) gm/dL Hct (39.0-53.0) % Plt Count (150-450) k/uL Neutrophils # (1.3-7.7) k/uL Lymphocytes # (1.0-4.8) k/uL ABG pO2 (83-108) mmHg ABG Total CO2 (19-24) mmol/L ABG O2 Saturation (94-97) % Sodium 135 L (137-145) mmol/L BUN 32 H (9-20) mg/dL Creatinine 4.29 H (0.66-1.25) mg/dL Glucose 188 H (74-99) mg/dL POC Glucose (mg/dL) 215 H 191 H (75-99) mg/dL Calcium 7.3 L (8.4-10.2) mg/dL AST 82 H (17-59) U/L Total Protein 5.5 L (6.3-8.2) g/dL Albumin 2.5 L (3.5-5.0) g/dL 02/13/19 02/13/19 02/13/19 Range/Units 06:28 06:59 07:05 WBC (3.8-10.6) k/uL RBC (4.30-5.90) m/uL Hgb (13.0-17.5) gm/dL Hct (39.0-53.0) % Plt Count (150-450) k/uL Neutrophils # (1.3-7.7) k/uL Lymphocytes # (1.0-4.8) k/uL ABG pO2 119 H (83-108) mmHg ABG Total CO2 26 H (19-24) mmol/L ABG O2 Saturation 99.1 H (94-97) % Sodium (137-145) mmol/L BUN (9-20) mg/dL Creatinine (0.66-1.25) mg/dL Glucose (74-99) mg/dL POC Glucose (mg/dL) 183 H 169 H (75-99) mg/dL Calcium (8.4-10.2) mg/dL AST (17-59) U/L Total Protein (6.3-8.2) g/dL Albumin (3.5-5.0) g/dL 02/13/19 02/13/19 Range/Units 08:06 08:56 WBC (3.8-10.6) k/uL RBC (4.30-5.90) m/uL Hgb (13.0-17.5) gm/dL Hct (39.0-53.0) % Plt Count (150-450) k/uL Neutrophils # (1.3-7.7) k/uL Lymphocytes # (1.0-4.8) k/uL ABG pO2 (83-108) mmHg ABG Total CO2 (19-24) mmol/L ABG O2 Saturation (94-97) % Sodium (137-145) mmol/L BUN (9-20) mg/dL Creatinine (0.66-1.25) mg/dL Glucose (74-99) mg/dL POC Glucose (mg/dL) 145 H 133 H (75-99) mg/dL Calcium (8.4-10.2) mg/dL AST (17-59) U/L Total Protein (6.3-8.2) g/dL Albumin (3.5-5.0) g/dL Microbiology - Last 24 Hours (Table) 02/10/19 01:18 Gram Stain - Final Sputum Sputum Culture - Final Assessment and Plan (1) History of cardiac arrest Current Visit: Yes Status: Acute Code(s): Z86.74 - PERSONAL HISTORY OF SUDDEN CARDIAC ARREST SNOMED Code(s): 582337951 (2) Acute MT, inferior wall Current Visit: Yes Status: Acute Code(s): I21.19 - STEMI INVOLVING OTH CORONARY ARTERY OF INFERIOR WALL SNOMED Code(s): 34143839 (3) Ischemic leg Current Visit: Yes Status: Acute Code(s): I99.8 - OTHER DISORDER OF CIRCULATORY SYSTEM SNOMED Code(s): 901632201 (4) Chronic renal failure Current Visit: Yes Status: Acute Code(s): N18.9 - CHRONIC KIDNEY DISEASE, UNSPECIFIED SNOMED Code(s): 85065455 (5) Anoxic brain injury Current Visit: Yes Status: Acute Code(s): G93.1 - ANOXIC BRAIN DAMAGE, NOT ELSEWHERE CLASSIFIED SNOMED Code(s): 320355632 (6) Acute on chronic diastolic CHF (congestive heart failure) Current Visit: Yes Status: Acute Code(s): I50.33 - ACUTE ON CHRONIC DIASTOLIC (CONGESTIVE) HEART FAILURE SNOMED Code(s): 423342897 (7) Acute on chronic systolic CHF (congestive heart failure), NYHA class 1 Current Visit: Yes Status: Acute Code(s): I50.23 - ACUTE ON CHRONIC SYSTOLIC (CONGESTIVE) HEART FAILURE SNOMED Code(s): 183016997 Plan: Patient is still on epinephrine and her blood pressure support. Still intubated. Unresponsive. Overall prognosis is poor
[2019-02-13 10:19] LABS: Glucose,Whole Blood 158 mg/dL (75-99)
[2019-02-13] MEDS: EPINEPHrine 4 MG in DEXTROSE 5% IN WATER 250 ML IV SCH ×2 (11:23)
--- NOTE | 2019-02-13 11:23 | P.PN ---
Subjective Progress Note Date: 02/13/19 Refugio Saenz, is a 68-year-old male who presented to [facility] emergency room with pain in the right foot, he was evaluated in emergency room and had blackish discoloration of the right fifth toe with surrounding erythema and tenderness, patient was started on IV antibiotics Zosyn, vancomycin, and clindamycin, he was admitted to medical floor vascular surgery consultation was requested for possible amputation due to evidence of gangrene. Infectious disease consultation was requested. Patient has a known history of insulin-dependent diabetes mellitus, his glucose level was well controlled up until September of this year his A1c in June was 7.1 and in September was 7.3 however apparently patient stopped taking his insulin and his medications and his A1c was up to 9.8 in November, he has a known history of right foot ulcer he was admitted to the hospital with right foot cellulitis and ulcer in 2014 and he was followed at the wound care clinic in 2015 however he was doing well up until recently. Patient also has a known history of hypertension, hyperlipidemia, he denies any history of coronary artery disease or congestive heart failure, he had an echocardiogram done in 2014 at that time he had normal left ventricular function was normal ejection fraction, no significant valvular disease and no pulmonary hypertension. 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 On 01/17/2019 patient's alert and oriented 3. Patient had fourth and fifth toe amputation with Dr. Edward this morning. Patient having some low blood pressure will give 500 mL bolus. Patient denies chest pain or shortness of breath. Patient denies nausea vomiting or diarrhea. Patient is having some increased pain to foot area pain medications ordered 01/18/2019, patient seen eval examined while covering for Dr. Granger, waking up this morning slightly slow to respond but not confused, breathing comfortably denies any chest pain labs reviewed today patient has been evaluated by Dr. Bassett, white cell count is coming down to 19,000, lactic acid level is normalized, patient has been on broad-spectrum antibiotics with vascular surgery on board 01/19/2019, patient seen and evaluated examined in the ICU intubated on full ventilator support, patient had gradual loss of consciousness has been more lethargic arterial blood gases were checked shows hypercapnic and hypoxic respiratory failure was intubated in the ICU, patient has been placed on propof ol he was volume depleted depleted aggressive fluid resuscitation were performed, is still requiring levophed intermittently, patient was also noted to be hypoglycemic 7030 insulin and other oral hypoglycemic agents were discontinued, ultrasound of the abdomen has been performed which is reviewed no obvious hydronephrosis seen, patient has decreased urine output along with rising BUN/creatinine appeared to be acute tubular necrosis, patient also requiring intermittent bolus of D10 for hypoglycemia, wounds has been evaluated by vascular surgery noted recommendation, patient has very poor venous access, will put a central line in, critical care time 45 minutes during procedure, due to altered mental status CT of the head was performed which was negative On 01/20/2019 patient remains in the intensive care unit on mechanical ventilation. Levophed has been on hold blood pressures has sustained. Creatinine has increased to 4.17 and bun 56. Nephrology services are following. Per nursing staff patient does follow commands during sedation holiday ABGs have improved. Discussed case with vascular surgeon nurse practitioner possible BKA discussion. White blood cell decreasing to 16.0. Critical care services are following. Patient remains on Zosyn for IV antibiotics. Infectious disease following 01/21/2019 patient remains on mechanical ventilation on in the intensive care unit. Patient remains sedated, on propofol. However per nursing staff patient does follow commands during sedation holiday. Patient is on 50% FiO2, 5 PEEP, tidal volume 500. Levophed off since 01/20/20. Blood pressure remains in the 130's-150's systolic. Creatinine 4.35 from 4.17 and BUN 57 from 56, Calcium 7.0, phosphorus 5.9 Nephrology is following. Orogastric tube replaced this morning. Per nursing staff OG tube was coiled in patient's mouth with tube feeds running. Chest x-ray repeated, no significant change from previous. ABG improving, still metabolic acidosis. WBC of 14.1 down from 16. Afebrile. Infectious disease is following patient is maintained on Zosyn. Will send C. diff sample due to new onset diarrhea for 1 day. Hyperglycemia noted (glucose 200's). Will discuss tube feed formula with dietary. If no changes can be made will adjust sliding scale. On 01/22/2019 patient remains sedated on mechanical ventilation in the intensive care unit. Per nursing staff patient is to have a BKA today with Dr. Edward. Patient remains off pressors, blood pressure has been stable. Chest x-ray repeated this morning, per pulmonary. No significant change in ABGs. Creatinine continues to increase, 4.84 today BUN 60, patient is still making adequate urine output nephrology is following. Tube feeds on hold, for pending OR. WBC 14.2, temperature overnight 100F. Please is following patient is maintained on Zosyn. C. diff sample was negative. 01/23/2019 patient remains sedated and on mechanical ventilation in the ICU. He underwent right BKA yesterday, 01/22/[address] Edward. Estimated blood loss 150 mL. He had a temp of 100 last night. Urine output is about 50 mL per hour. Creatinine has gone down from 4.84-4.82. Nephrology is following closely. No plans for hemodialysis yet. Patient's blood sugars are starting to become more elevated. They're in the 180s to 200s. Tube feedings are being adjusted. White count 13.7 hemoglobin 10.3 On 01/24/2019 patient remains sedated on mechanical ventilation in the intensive care unit. Decreased urine output throughout night. Creatinine 5.15 and bun 68. Patient remains on insulin drip. WBC 14.1. Patient having low-grade temps. Patient remains closely followed by critical care consulting providers On 01/25/2019 patient was seen and examined in the intensive care unit, he is currently alert and maintained on BiPAP trial, he is making more urine output, and no hemodialysis is scheduled at this time, creatinine improved, down from 5.15-4.44 white blood count down to 11.3 patient is followed by nephrology, infectious disease, pulmonary and critical care and vascular surgery On 01/26/2019 patient was seen and examined in the ICU, he is intubated sedated maintained on mechanical ventilation, creatinine went up today and he was started on hemodialysis, Zosyn has today, at this time will resume Zosyn, we have asked infectious disease to see patient and reassess antibiotics, otherwise patient is stable there is no fever or chills, he continues to have a rectal tube and having large amount of diarrhea, C. diff was checked and was negative will repeat test today. On 01/27/2019 patient remains on mechanical ventilation in the intensive care unit. Creatinine trending down today 4.76 and bun 77. Patient remains on Lasix drip per nephrology services. White count 11.8. She remains on IV Zosyn. Sedation holiday performed per nursing staff and critical care recommendation. On 01/28/2019 patient remains in the intensive care unit on mechanical ventilation. Sedation currently turned off. Patient is awake and following commands possible extubation today per critical care. Patient also received hemodialysis this will be the patient's third round of hemodialysis. Creatinine is trending down 4.44. Patient remains on Lasix drip. On 01/29/2019 patient remains in ICU intubated sedated maintained on mechanical ventilation, he had to CPAP trials yesterday, he is still maintained on hemodialysis, creatinine is elevated at 4.8 and BUN 89. On 01/30/2019 patient remains on mechanical ventilation in the intensive care unit. Patient is off sedation at this time and following commands. CPAP trial in place. Possible extubation today. Patient currently getting hemodialysis. Permanent hemodialysis catheter placed yesterday. Creatinine is trending down. Patient taken off insulin drip. on 01/31/2019 patient remains in intensive care unit on mechanical ventilation. Discussed case with critical care doctor Dr. Dominguez Yesterday. Patient unable to wean. we'll continue to monitor patient over the weekend and consider possible trach next week. Patient also received hemodialysis yesterday. On 02/01/2019 patient was seen and examined in the ICU he is intubated and maegan ntained on mechanical ventilation sedation is being stopped now for CPAP trial on 02/02/2019 patient was seen and examined in the ICU he has been extubated since yesterday, he is tolerating well maintained on oxygen via nasal cannula, he seems somnolent however he is opening his eyes and answering questions by nodding his head and trying to speak, there is no fever or chills no headache or dizziness no chest pain no shortness of breath he has occasional cough no nausea or vomiting no abdominal pain. on 02/03/2019 patient is currently sitting up in chair on nasal cannula. Patient does wake up and follow commands. Per nursing staff antibiotics due to ID is following per nursing will get a hold of infectious disease to further evaluate need for antibiotics. at this time patient denies chest pain or shortness of breath. Patient denies nausea vomiting or diarrhea. Patient denies any urinary burning or frequency. patient to receive hemodialysis today remains on IV Lasix on 02/04/2019 patient is currently resting comfortably in bed. Patient is alert and oriented. Per nursing staff patient no longer needs antibiotics Dr. Bassett is following for infectious disease.patient received dialysis yesterday will receive hemodialysis again tomorrow maintained on IV Lasix. Elevated blood pressure. Hydralazine by mouth has been added. At this time patient denies chest pain or shortness of breath. Patient denies nausea vomiting or diarrhea. Patient denies any urinary burning or frequency. on 02/05/2019 patient is currently resting comfortably in chair. Per nursing staff patient had episode of increased lethargy last night requiring BiPAP and Narcan. per critical care and narcotics and benzos were DC'd at this time. Patient is now awake and alert 3. Patient able to follow commands and answer all questions. Patient denies any chest pain or shortness of breath. Patient denies nausea vomiting or diarrhea. Patient denies any urinary burning or frequency. 02/06/2019 patient is currently resting comfortably in bed.Patient did undergo hemodialysis yesterday. Lasix has been decreased per nephrology. Patient denies chest pain or shortness of breath. Patient denies vomiting or diarrhea. Patient denies any urinary burning or frequency. Working on discharge planning possible discharge to ECF next week. On 02/07/2019 patient has moved out of the intensive care unit to [facility] care. Patient currently getting hemodialysis. Discussed case with nephrology services planning to do dialysis today and hold off during the weekends assess patient renal function on Sunday. Also patient is planning to be discharged to ECF [place] now. This time patient denies chest pain. Patient denies nausea vomiting or diarrhea. Patient having some mild discomfort back will add Tylenol. Patient denies any urinary burning or frequency edward catheter remains in place. On 02/08/2019 patient was seen and examined on the telemetry floor he is alert responsive in no apparent distress he was more confused today, there is no fever or chills no headache or dizziness no chest pain no shortness of breath no cough no nausea or vomiting no abdominal pain no diarrhea no burning with urination no frequency or urgency and no hematuria. On 02/09/2019 patient had cardiac arrest this morning he was coded multiple times and was transferred to intensive care unit, he was seen by Dr. Bear who was covering for Dr. Dominguez, he was also seen by cardiology EKG revealed ST e levation in inferior leads patient was taken to the electronic lab technician for acute inferior wall [place]. On 02/10/2019 patient is currently in the intensive care unit on mechanical ventilation. Patient is status post cardiac arrest. Patient was taken to the cardiac [employer] and found to have been a percent occluded RCA. Patient did receive stent in currently on Brilinta. Patient is currently on mechanical ve ntilation with sedation and epinephrine drip. Currently receiving hemodialysis. Critical care services are following. On 02/11/2019 patient remains in the intensive care unit on mechanical ventilat ion. Patient was evaluated by neurology services EEG and computed tomography scan of the brain has been ordered. Per nursing staff patient may not be stable enough for CT at this time. Patient remains on epinephrine drip for blood pressure control. Patient maintained on IV Zosyn per critical care. Patient to receive hemodialysis tomorrow 12/13/2018. On 02/12/2019 patient was seen and examined in the ICU, he is intubated sedated maintained on mechanical ventilation, he is not tolerating weaning off sedation, he is having difficulty tolerating hemodialysis, today the was approached in regard to possibility of terminal weaning and Comfort care only, patient will think about it and will rediscuss again tomorrow . On 02/13/2019 patient remains in the intensive care unit. Per nursing staff patient unable to wean off sedation. Comfort care was discussed with . Patient unable to tolerate hemodialysis. We'll await family decision in regards to comfort care Objective - Vital Signs Vital signs: Vital Signs Temp 100.7 F H 02/13/19 08:00 Pulse 77 02/13/19 11:00 Resp 20 02/13/19 11:00 BP 105/56 02/13/19 11:00 Pulse Ox 98 02/13/19 11:00 Intake & Output 02/12/19 02/13/19 02/13/19 18:59 06:59 18:59 Intake Total 4168.256 5398.977 558.205 Output Total 217 55 0 Balance 7154.660 4208.977 558.205 Weight 107.3 kg Intake: IV 540 570 250 Sodium Chloride 0.9% 1, 540 20 000 ml @ 20 mls/hr IV . Q24H [place] Rx#:[id number] Sodium Chloride 0.9% 1, 550 250 000 ml @ 50 mls/hr IV . Q20H [place] Rx#:[id number] Intake, IV Titration 561.044 409.977 18.205 Amount EPINEPHrine 4 mg In 250.00 20.507 Dextrose 5% in Water 250 ml @ 0.01 MCG/KG/MIN 3. 619 mls/hr IV .Q24H [place] Rx#:[id number] Insulin Regular 100 unit 42.529 89.470 18.205 In Sodium Chloride 0.9% 100 ml @ Per Protocol IV .Q0M [place] Rx#:[id number] Propofol 1,000 mg In 268.515 300 Empty Bag 1 bag @ Titrate IV .Q0M [place] Rx#: [id number] Tube Feeding 300 468 195 Other 150 90 95 Output: Urine 40 55 0 Hemodialysis 177 Other: Voiding Method Indwelling Catheter Indwelling Catheter Indwelling Catheter ABP, PAP, CO, CI - Last Documented Arterial Blood Pressure 124/43 - Exam HEENT head normocephalic and atraumatic Neck is supple no JVD no goiter no lymphadenopathy Chest exam reveals diminished lung sounds, a few scattered rhonchi no wheezing Cardiac exam reveals regular heart sounds S1 and S2 no gallops no murmurs Abdomen is obese, soft nontender no organomegaly with normal bowel sounds Extremity right BKA. Dressing is clean dry and intact Neuro currently on mechanical ventilation and sedation unequal pupils left greater than right. Right pupil sluggish. Patient reports he had eye surgery previously unable to recall for what but does report this is chronic. No other neuro deficits noted - Labs CBC & Chem 7: 02/13/19 04:25 02/13/19 04:25 Labs: Abnormal Lab Results - Last 24 Hours (Table) 02/12/19 02/12/19 02/12/19 Range/Units 12:14 13:56 16:23 WBC (3.8-10.6) k/uL RBC (4.30-5.90) m/uL Hgb (13.0-17.5) gm/dL Hct (39.0-53.0) % Plt Count (150-450) k/uL Neutrophils # (1.3-7.7) k/uL Lymphocytes # (1.0-4.8) k/uL ABG pO2 (83-108) mmHg ABG Total CO2 (19-24) mmol/L ABG O2 Saturation (94-97) % Sodium (137-145) mmol/L BUN (9-20) mg/dL Creatinine (0.66-1.25) mg/dL Glucose (74-99) mg/dL POC Glucose (mg/dL) 155 H 141 H 138 H (75-99) mg/dL Calcium (8.4-10.2) mg/dL AST (17-59) U/L Total Protein (6.3-8.2) g/dL Albumin (3.5-5.0) g/dL 02/12/19 02/12/19 02/12/19 Range/Units 17:22 18:08 19:00 WBC (3.8-10.6) k/uL RBC (4.30-5.90) m/uL Hgb (13.0-17.5) gm/dL Hct (39.0-53.0) % Plt Count (150-450) k/uL Neutrophils # (1.3-7.7) k/uL Lymphocytes # (1.0-4.8) k/uL ABG pO2 (83-108) mmHg ABG Total CO2 (19-24) mmol/L ABG O2 Saturation (94-97) % Sodium (137-145) mmol/L BUN (9-20) mg/dL Creatinine (0.66-1.25) mg/dL Glucose (74-99) mg/dL POC Glucose (mg/dL) 147 H 176 H 181 H (75-99) mg/dL Calcium (8.4-10.2) mg/dL AST (17-59) U/L Total Protein (6.3-8.2) g/dL Albumin (3.5-5.0) g/dL 02/12/19 02/12/19 02/12/19 Range/Units 19:59 21:37 23:10 WBC (3.8-10.6) k/uL RBC (4.30-5.90) m/uL Hgb (13.0-17.5) gm/dL Hct (39.0-53.0) % Plt Count (150-450) k/uL Neutrophils # (1.3-7.7) k/uL Lymphocytes # (1.0-4.8) k/uL ABG pO2 (83-108) mmHg ABG Total CO2 (19-24) mmol/L ABG O2 Saturation (94-97) % Sodium (137-145) mmol/L BUN (9-20) mg/dL Creatinine (0.66-1.25) mg/dL Glucose (74-99) mg/dL POC Glucose (mg/dL) 217 H 222 H 218 H (75-99) mg/dL Calcium (8.4-10.2) mg/dL AST (17-59) U/L Total Protein (6.3-8.2) g/dL Albumin (3.5-5.0) g/dL 02/13/19 02/13/19 02/13/19 Range/Units 01:20 02:11 03:13 WBC (3.8-10.6) k/uL RBC (4.30-5.90) m/uL Hgb (13.0-17.5) gm/dL Hct (39.0-53.0) % Plt Count (150-450) k/uL Neutrophils # (1.3-7.7) k/uL Lymphocytes # (1.0-4.8) k/uL ABG pO2 (83-108) mmHg ABG Total CO2 (19-24) mmol/L ABG O2 Saturation (94-97) % Sodium (137-145) mmol/L BUN (9-20) mg/dL Creatinine (0.66-1.25) mg/dL Glucose (74-99) mg/dL POC Glucose (mg/dL) 219 H 226 H 221 H (75-99) mg/dL Calcium (8.4-10.2) mg/dL AST (17-59) U/L Total Protein (6.3-8.2) g/dL Albumin (3.5-5.0) g/dL 02/13/19 02/13/19 02/13/19 Range/Units 04:25 04:25 04:26 WBC 10.7 H (3.8-10.6) k/uL RBC 2.35 L (4.30-5.90) m/uL Hgb 7.0 L (13.0-17.5) gm/dL Hct 21.9 L (39.0-53.0) % Plt Count 138 L (150-450) k/uL Neutrophils # 8.6 H (1.3-7.7) k/uL Lymphocytes # 0.8 L (1.0-4.8) k/uL ABG pO2 (83-108) mmHg ABG Total CO2 (19-24) mmol/L ABG O2 Saturation (94-97) % Sodium 135 L (137-145) mmol/L BUN 32 H (9-20) mg/dL Creatinine 4.29 H (0.66-1.25) mg/dL Glucose 188 H (74-99) mg/dL POC Glucose (mg/dL) 215 H (75-99) mg/dL Calcium 7.3 L (8.4-10.2) mg/dL AST 82 H (17-59) U/L Total Protein 5.5 L (6.3-8.2) g/dL Albumin 2.5 L (3.5-5.0) g/dL 02/13/19 02/13/19 02/13/19 Range/Units 05:18 06:28 06:59 WBC (3.8-10.6) k/uL RBC (4.30-5.90) m/uL Hgb (13.0-17.5) gm/dL Hct (39.0-53.0) % Plt Count (150-450) k/uL Neutrophils # (1.3-7.7) k/uL Lymphocytes # (1.0-4.8) k/uL ABG pO2 (83-108) mmHg ABG Total CO2 (19-24) mmol/L ABG O2 Saturation (94-97) % Sodium (137-145) mmol/L BUN (9-20) mg/dL Creatinine (0.66-1.25) mg/dL Glucose (74-99) mg/dL POC Glucose (mg/dL) 191 H 183 H 169 H (75-99) mg/dL Calcium (8.4-10.2) mg/dL AST (17-59) U/L Total Protein (6.3-8.2) g/dL Albumin (3.5-5.0) g/dL 02/13/19 02/13/19 02/13/19 Range/Units 07:05 08:06 08:56 WBC (3.8-10.6) k/uL RBC (4.30-5.90) m/uL Hgb (13.0-17.5) gm/dL Hct (39.0-53.0) % Plt Count (150-450) k/uL Neutrophils # (1.3-7.7) k/uL Lymphocytes # (1.0-4.8) k/uL ABG pO2 119 H (83-108) mmHg ABG Total CO2 26 H (19-24) mmol/L ABG O2 Saturation 99.1 H (94-97) % Sodium (137-145) mmol/L BUN (9-20) mg/dL Creatinine (0.66-1.25) mg/dL Glucose (74-99) mg/dL POC Glucose (mg/dL) 145 H 133 H (75-99) mg/dL Calcium (8.4-10.2) mg/dL AST (17-59) U/L Total Protein (6.3-8.2) g/dL Albumin (3.5-5.0) g/dL 02/13/19 Range/Units 10:08 WBC (3.8-10.6) k/uL RBC (4.30-5.90) m/uL Hgb (13.0-17.5) gm/dL Hct (39.0-53.0) % Plt Count (150-450) k/uL Neutrophils # (1.3-7.7) k/uL Lymphocytes # (1.0-4.8) k/uL ABG pO2 (83-108) mmHg ABG Total CO2 (19-24) mmol/L ABG O2 Saturation (94-97) % Sodium (137-145) mmol/L BUN (9-20) mg/dL Creatinine (0.66-1.25) mg/dL Glucose (74-99) mg/dL POC Glucose (mg/dL) 158 H (75-99) mg/dL Calcium (8.4-10.2) mg/dL AST (17-59) U/L Total Protein (6.3-8.2) g/dL Albumin (3.5-5.0) g/dL Microbiology - Last 24 Hours (Table) 02/10/19 01:18 Gram Stain - Final Sputum Sputum Culture - Final Assessment and Plan Assessment: #1 cardiac arrest secondary to acute ST elevation inferior wall [place] requiring multiple prolonged codes.underwent cardiac cath with stents to RCA. Currently maintained on mechanical ventilation. Epinephrine drip in place. Chest x-ray completed showing improvement in lung volume irrigation. Pulmonary and critical care service is following. Patient currently maintained on Zosyn. Post cardiac cath 2-D echo completed showing EF of 35-40% #2. Anoxic encephalopathy and toxic metabolic encephalopathy post prolonged cardiac arrest. Neurology services are following. Patient will undergo EEG. Computed tomography scan has been ordered for when patient is stable #3 gangrene involving the right fifth toe with surrounding cellulitis Status post amputation of fourth and fifth toe with Dr. Edward and status post right BKA. #4 sepsis present on admission as evidenced by fever, leukocytosis, and elevated lactic acid. wound cultures growing gram-negative bacilli. White blood cell improving down to 9.3. patient has completed course of antibiotics per infectious disease no need for antibiotics at this time #5 acute hypoxic and hypercapnic respiratory failure with altered mental status changes secondary to severe sepsis. Patient was transferred to the intensive care unit and placed on mechanical ventilation. patient has been successfully extubated to 2 L. #6. Hypotension secondary to septic shock requiring Levophed for pressure support. resolved #7. Acute kidney injury secondary to ATN secondary to hypotension as well as vancomycin toxicity. Nephrology services are following. Ultrasound completed showing no evidence of hydronephrosis. currently receiving hemodialysis. Permanent hemodialysis catheter placed on 01/29/2019. On 02/10/2018 patient receiving hemodialysis #8. history of essential hypertension. Cardiology services following. EF 50-55%. Per cardiology services no evidence of acute coronary syndrome at this time. hydralazine has been added by mouth #9. insulin-dependent diabetes mellitus, with poor control due to noncompliance last hemoglobin A1c was 9.8 at this time will hold glipizide, Januvia and metformin, and cover was insulin to sliding scale will adjust medications as needed. Blood sugars have been in the 200s after episode of hypoglycemia. Patient currently on insulin drip for tight blood sugar control. Post cardiac arrest patient started back on insulin drip #10. underlying history of diabetic complications of peripheral neuropathy and retinopathy. #11. poor compliance with medical management, patient had extensive counseling in the last year, his A1c was down to 7.1 in June however it was up to 9.8 again recently. #12 underlying history of hyperlipidemia maintained on atorvastatin, on hold. #13. Hypoglycemia. Home meds DC'd. Tube feedings have been initiated. Hypoglycemia has resolved #14. volume overload. Patient maintained on IV Lasix. Nephrology services are following #15. History of glaucoma with previous surgeries to left eye. Unequal pupils which patient reports is chronic. patient maintained on multiple eyedrops DVT prophylaxis heparin. GI prophylaxis Protonix Critical care, vascular surgery, infectious disease, cardiology and nephrology services following Discussion was held with family in regards to possible comfort care I performed an examination of the patient and discussed their management with the Nurse Practitioner. I have reviewed the Nurse Practitioner's notes and agree with the documented findings and plan of care
[2019-02-13 11:26] LABS: Glucose,Whole Blood 184 mg/dL (75-99)
--- NOTE | 2019-02-13 11:34 | P.PN ---
Subjective Progress Note Date: 02/13/19 Principal diagnosis: Cardiac arrest 68-year-old male patient who got transferred to the intensive care unit after a acute cardiopulmonary arrest that occurred on the medical floor this morning. I am covering today for Dr. Dominguez and for that reason I am seeing this patient in the intensive care unit. Briefly, he has prolonged hypoxic respiratory failure that occurred following a infected gangrenous right foot for which the patient underwent a right below-knee amputation. He had a staphylococcal infection. He also developed acute kidney injury and the patient is currently on dialysis 3 times a week and his last dialysis session was done on Sunday. The patient has also bkk-lureyvv-pztzyniny diabetes mellitus, hypertension and hypertensive heart and peripheral neuropathy and hyperlipidemia and COPDThe patient developed an acute cardiac arrest. The patient was found to be unresponsive this morning. He was found to be PA. Immediately, the core he was involved in the patient was given, 4 rounds of epinephrine, bicarbonate he was intubated and brought into the intensive care unit. Initial EKG showed atrial fibrillation. In addition to a significant ST segment elevation involving the inferior leads and a right bundle branch block patter . Within minutes after his arrival to the intensive care unit, the patient is second code which lasted for around 5 minut es and this was a PEA rhythm and currently with going into the third code. He is currently receiving epinephrine and CPR as the patient went into a PEA. Cardiology is on the case. He has seen the patient the bedside. Breath sounds are equal and bilateral. Potassium level is at 4.7. The blood gases that was done and I showed a pH of 7.01 with a pCO2 of 76 and pO2 of 140. His lactic acid level was 8.8. His BUN is at 43 with a creatinine of 5.0 and a serum bicarbonate this morning prior to the code was 25. His hemoglobin was at 10.1. White cell count of 8.7. Patient was evaluated today on 02/10/2019, intubated, mechanically ventilated, on very small dose of propofol, not responding to any stimuli. Patient had at least 3 episodes of cardiac arrest yesterday requiring reintubation, and required cardiac catheterization. His ventilator settings presently are tidal volume of 500 assist control rate of 20 FiO2 of 50% PEEP of 12. Patient is on propofol at 10 mcg/kg/m, he is on hemodialysis, he is on epinephrine at 0.075 mcg/kg/m. Chest x-ray showed right lower lobe consolidation. Possibly related to aspiration, hence his Zosyn was restarted today empirically. His IV fluid is at 25 mL per hour. And he is about to receive hemodialysis in the next few minutes. ABG this morning on 100% showed a pO2 of 348 pCO2 of 31 pH of 7.58. Electrolytes are normal BUN is 54 creatinine 5.47. WBC count is 17.1 hemoglobin is 9.3. Troponin 41,000. Yesterday the patient had successful stenting of totally occluded distal RCA and he was found to have intracoronary thrombus noted in the takeoff of the PLV. Remains on heparin. Reevaluated today on 02/11/2019, remains in the intensive care unit, intubated, mechanically ventilated. His ventilator settings are tidal volume of 500 assist control rate of 20 PEEP was increased at 12, FiO2 at 60%, remains on norepinephrine at 0.07 mcg/kg/m. I have changed today his PEEP up to 12 and I kept him on FiO2 at 60%. Chest x-ray continues to show evidence of pulmonary edema, no plans to ultrafiltrate the patient today. Patient will be started today on enteral feeding. He was seen by neurology, and it is felt that the patient has severe anoxic brain injury. As a matter of fact on my examination today, patient had no corneal reflexes, he had negative calorics, he does breathe on his own, and he at times asynchronous with the ventilator when sedation is on hold. But does not follow any instructions does not respond to any pain.ABG today showed a pO2 of 90 pCO2 of 39 pH of 7.44 WBC count is 16.8 hemoglobin is 8, electrolytes are normal BUN is 35 creatinine 4.54 Patient was reevaluated today on 02/12/2019, remains in the intensive care unit, remains on the same ventilator settings FiO2 is down to 50% from 60% yesterday, PEEP remains at 12, assist control rate of 20 and tidal volume of 500. Remains on epinephrine drip at 0.05 mcg/kg/m. Remains on propofol at 35 mcg/kg/m. Patient remains unresponsive, he gets asynchronous with the ventilator once he is off propofol, but no responses whatsoever including no responses to deep painful stimuli. Patient clearly sustained severe anoxic brain injury, and we should seriously consider comfort care measures on this patient, however family is not quite ready for this at this point yet. In the meantime we continue present supportive care measures, and the patient remains on mechanical ventilation, multiple cardiac meds as listed, remains on hemodialysis, empiric antibiotics, and a GI and DVT prophylaxis. ABG today showed a pO2 of 114 pCO2 of 36 pH of 7.44 hence I cut down the FiO2 from 60% to 50%. WBC count is 15.1 hemoglobin is 7.3, electrodes are normal BUN is 43 creatinine is 5.68, remains on hemodialysis. Reevaluated today on 02/13/2019, patient remains in the ICU, intubated, mechanically ventilated, his ventilator settings were reviewed and he is prese ntly placed on a tidal volume of 500, assist control rate 20 deep is down to 8 from 12 his FiO2 is at 50%. ABG showed a pO2 of 119 pCO2 of 37 pH of 7.44 CBC showed slight drop in his hemoglobin down to 7 WBC count is 10.7 hemoglobin is 7. Electrolytes are normal BUN however is 32 creatinine 4.29 patient remains on hemodialysis. Patient is back on propofol at 55 mcg/kg/m, remains unresponsive even off propofol, obviously he sustained significant and severe anoxic brain injury. 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 Right pupil is sluggish and left pupil is nonreactive surgical from the past. Patient has a very weak gag reflex. And no responses whatsoever to any deep painful stimuli. Chest x-ray is showing pulmonary edema/unilateral mostly involving the right side, underlying pneumonia is not entirely ruled out but felt to be less likely. Objective - Vital Signs Vital signs: Vital Signs Temp 100.7 F H 02/13/19 08:00 Pulse 77 02/13/19 11:00 Resp 20 02/13/19 11:00 BP 105/56 02/13/19 11:00 Pulse Ox 98 02/13/19 11:00 Intake & Output 02/12/19 02/13/19 02/13/19 18:59 06:59 18:59 Intake Total 0982.416 1332.977 787.698 Output Total 217 55 0 Balance 1080.503 6278.977 787.698 Weight 107.3 kg Intake: IV 540 570 250 Sodium Chloride 0.9% 1, 540 20 000 ml @ 20 mls/hr IV . Q24H [facility] Rx#:[id number] Sodium Chloride 0.9% 1, 550 250 000 ml @ 50 mls/hr IV . Q20H [place] Rx#:[id number] Intake, IV Titration 561.044 409.977 247.698 Amount EPINEPHrine 4 mg In 250.00 20.507 229.493 Dextrose 5% in Water 250 ml @ 0.01 MCG/KG/MIN 3. 619 mls/hr IV .Q24H [place] Rx#:[id number] Insulin Regular 100 unit 42.529 89.470 18.205 In Sodium Chloride 0.9% 100 ml @ Per Protocol IV .Q0M [place] Rx#:[id number] Propofol 1,000 mg In 268.515 300 Empty Bag 1 bag @ Titrate IV .Q0M [place] Rx#: [id number] Tube Feeding 300 468 195 Other 150 90 95 Output: Urine 40 55 0 Hemodialysis 177 Other: Voiding Method Indwelling Catheter Indwelling Catheter Indwelling Catheter ABP, PAP, CO, CI - Last Documented Arterial Blood Pressure 124/43 - Exam Physical Exam: Revealed 68-year-old white male obese comatose, intubated and v entilated. Head: Atraumatic, normocephalic. Endotracheal tube and orogastric tube are intact. HEENT:[Neck is supple.] [No neck masses.] [No thyromegaly.] [No JVD.] Moist mucous membranes, no neck masses, no JVD. Chest: [Symmetrical chest expansion, clear breath sound bilaterally no rhonchi and no wheezes. Cardiac Exam: [Normal S1 and S2, no S3 gallop, 2/6 systolic murmur thought the precordium.] Abdomen: [Obese, Soft, nontender, no megaly, no rebound, no guarding, normal bowel sounds.] Extremities: [No clubbing, 1+ bipedal, no cyanosis.] Right below knee amputation is noted. Neurological Exam: Right pupil is sluggishly reactive to light left pupil is surgical nonreactive. Corneals are absent. Patient has a weak gag, again no response to any deep painful stimuli. Psychiatric could not be assessed. Skin: No rashes. Right below-knee amputation is intact. Wrapped with sterile dressing. - Labs CBC & Chem 7: 02/13/19 04:25 02/13/19 04:25 Labs: Abnormal Lab Results - Last 24 Hours (Table) 02/12/19 02/12/19 02/12/19 Range/Units 12:14 13:56 16:23 WBC (3.8-10.6) k/uL RBC (4.30-5.90) m/uL Hgb (13.0-17.5) gm/dL Hct (39.0-53.0) % Plt Count (150-450) k/uL Neutrophils # (1.3-7.7) k/uL Lymphocytes # (1.0-4.8) k/uL ABG pO2 (83-108) mmHg ABG Total CO2 (19-24) mmol/L ABG O2 Saturation (94-97) % Sodium (137-145) mmol/L BUN (9-20) mg/dL Creatinine (0.66-1.25) mg/dL Glucose (74-99) mg/dL POC Glucose (mg/dL) 155 H 141 H 138 H (75-99) mg/dL Calcium (8.4-10.2) mg/dL AST (17-59) U/L Total Protein (6.3-8.2) g/dL Albumin (3.5-5.0) g/dL 02/12/19 02/12/19 02/12/19 Range/Units 17:22 18:08 19:00 WBC (3.8-10.6) k/uL RBC (4.30-5.90) m/uL Hgb (13.0-17.5) gm/dL Hct (39.0-53.0) % Plt Count (150-450) k/uL Neutrophils # (1.3-7.7) k/uL Lymphocytes # (1.0-4.8) k/uL ABG pO2 (83-108) mmHg ABG Total CO2 (19-24) mmol/L ABG O2 Saturation (94-97) % Sodium (137-145) mmol/L BUN (9-20) mg/dL Creatinine (0.66-1.25) mg/dL Glucose (74-99) mg/dL POC Glucose (mg/dL) 147 H 176 H 181 H (75-99) mg/dL Calcium (8.4-10.2) mg/dL AST (17-59) U/L Total Protein (6.3-8.2) g/dL Albumin (3.5-5.0) g/dL 02/12/19 02/12/19 02/12/19 Range/Units 19:59 21:37 23:10 WBC (3.8-10.6) k/uL RBC (4.30-5.90) m/uL Hgb (13.0-17.5) gm/dL Hct (39.0-53.0) % Plt Count (150-450) k/uL Neutrophils # (1.3-7.7) k/uL Lymphocytes # (1.0-4.8) k/uL ABG pO2 (83-108) mmHg ABG Total CO2 (19-24) mmol/L ABG O2 Saturation (94-97) % Sodium (137-145) mmol/L BUN (9-20) mg/dL Creatinine (0.66-1.25) mg/dL Glucose (74-99) mg/dL POC Glucose (mg/dL) 217 H 222 H 218 H (75-99) mg/dL Calcium (8.4-10.2) mg/dL AST (17-59) U/L Total Protein (6.3-8.2) g/dL Albumin (3.5-5.0) g/dL 02/13/19 02/13/19 02/13/19 Range/Units 01:20 02:11 03:13 WBC (3.8-10.6) k/uL RBC (4.30-5.90) m/uL Hgb (13.0-17.5) gm/dL Hct (39.0-53.0) % Plt Count (150-450) k/uL Neutrophils # (1.3-7.7) k/uL Lymphocytes # (1.0-4.8) k/uL ABG pO2 (83-108) mmHg ABG Total CO2 (19-24) mmol/L ABG O2 Saturation (94-97) % Sodium (137-145) mmol/L BUN (9-20) mg/dL Creatinine (0.66-1.25) mg/dL Glucose (74-99) mg/dL POC Glucose (mg/dL) 219 H 226 H 221 H (75-99) mg/dL Calcium (8.4-10.2) mg/dL AST (17-59) U/L Total Protein (6.3-8.2) g/dL Albumin (3.5-5.0) g/dL 02/13/19 02/13/19 02/13/19 Range/Units 04:25 04:25 04:26 WBC 10.7 H (3.8-10.6) k/uL RBC 2.35 L (4.30-5.90) m/uL Hgb 7.0 L (13.0-17.5) gm/dL Hct 21.9 L (39.0-53.0) % Plt Count 138 L (150-450) k/uL Neutrophils # 8.6 H (1.3-7.7) k/uL Lymphocytes # 0.8 L (1.0-4.8) k/uL ABG pO2 (83-108) mmHg ABG Total CO2 (19-24) mmol/L ABG O2 Saturation (94-97) % Sodium 135 L (137-145) mmol/L BUN 32 H (9-20) mg/dL Creatinine 4.29 H (0.66-1.25) mg/dL Glucose 188 H (74-99) mg/dL POC Glucose (mg/dL) 215 H (75-99) mg/dL Calcium 7.3 L (8.4-10.2) mg/dL AST 82 H (17-59) U/L Total Protein 5.5 L (6.3-8.2) g/dL Albumin 2.5 L (3.5-5.0) g/dL 02/13/19 02/13/19 02/13/19 Range/Units 05:18 06:28 06:59 WBC (3.8-10.6) k/uL RBC (4.30-5.90) m/uL Hgb (13.0-17.5) gm/dL Hct (39.0-53.0) % Plt Count (150-450) k/uL Neutrophils # (1.3-7.7) k/uL Lymphocytes # (1.0-4.8) k/uL ABG pO2 (83-108) mmHg ABG Total CO2 (19-24) mmol/L ABG O2 Saturation (94-97) % Sodium (137-145) mmol/L BUN (9-20) mg/dL Creatinine (0.66-1.25) mg/dL Glucose (74-99) mg/dL POC Glucose (mg/dL) 191 H 183 H 169 H (75-99) mg/dL Calcium (8.4-10.2) mg/dL AST (17-59) U/L Total Protein (6.3-8.2) g/dL Albumin (3.5-5.0) g/dL 02/13/19 02/13/19 02/13/19 Range/Units 07:05 08:06 08:56 WBC (3.8-10.6) k/uL RBC (4.30-5.90) m/uL Hgb (13.0-17.5) gm/dL Hct (39.0-53.0) % Plt Count (150-450) k/uL Neutrophils # (1.3-7.7) k/uL Lymphocytes # (1.0-4.8) k/uL ABG pO2 119 H (83-108) mmHg ABG Total CO2 26 H (19-24) mmol/L ABG O2 Saturation 99.1 H (94-97) % Sodium (137-145) mmol/L BUN (9-20) mg/dL Creatinine (0.66-1.25) mg/dL Glucose (74-99) mg/dL POC Glucose (mg/dL) 145 H 133 H (75-99) mg/dL Calcium (8.4-10.2) mg/dL AST (17-59) U/L Total Protein (6.3-8.2) g/dL Albumin (3.5-5.0) g/dL 02/13/19 02/13/19 Range/Units 10:08 11:15 WBC (3.8-10.6) k/uL RBC (4.30-5.90) m/uL Hgb (13.0-17.5) gm/dL Hct (39.0-53.0) % Plt Count (150-450) k/uL Neutrophils # (1.3-7.7) k/uL Lymphocytes # (1.0-4.8) k/uL ABG pO2 (83-108) mmHg ABG Total CO2 (19-24) mmol/L ABG O2 Saturation (94-97) % Sodium (137-145) mmol/L BUN (9-20) mg/dL Creatinine (0.66-1.25) mg/dL Glucose (74-99) mg/dL POC Glucose (mg/dL) 158 H 184 H (75-99) mg/dL Calcium (8.4-10.2) mg/dL AST (17-59) U/L Total Protein (6.3-8.2) g/dL Albumin (3.5-5.0) g/dL Microbiology - Last 24 Hours (Table) 02/10/19 01:18 Gram Stain - Final Sputum Sputum Culture - Final Assessment and Plan Assessment: Impression: Status post Cardiac arrest 3, acute ST elevation myocardial infarction, requiring CPR and defibrillation. Status post emergent cardiac catheterization and stenting. Status post stenting of RCA severe anoxic brain injury, is strongly suspected.. Cardiogenic shock post cardiac arrest improved. Acute kidney injury, acute tubular necrosis, presently on hemodialysis. 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 History of hepatitis B Recommendation: Continue ventilatory support. Continue hemodynamic support. As needed Continue nutritional support./enteral feeding. patient is presently not weanable and no plans to do so. Condition remains extremely critical. Suspect high mortality. Patient has been in the hospital for almost a month. Considering his anoxic brain injury which seems to be severe, we'll discuss with the family possibly considering comfort care measures. Critical care time is 32 minutes Time with Patient: Greater than 30
[2019-02-13 13:09] LABS: Glucose,Whole Blood 143 mg/dL (75-99)
--- NOTE | 2019-02-13 13:36 | PN ---
PROGRESS NOTE Patient is seen for followup for acute kidney injury. He was dialyzed yesterday. However, he did not tolerate his treatment very well. will be coming in later today to make the final decision regarding code status. At this time, patient is stable. His epinephrine is at about 4 mcg. He remains on the vent with no significant responses or corneal reflex. FiO2 is at 50%. PHYSICAL EXAMINATION: On examination, blood pressure this morning was 105/56, heart rate of 82 per minute. Patient is afebrile. EXAMINATION OF THE HEART: S1, S2. EXAMINATION OF THE LUNGS: Bilateral breath sounds are heard. ABDOMEN: Soft, nontender. Examination of the lower extremities shows right , edema 1+ left leg. COMPLETION SUPERVISOR EXAM: Cannot be performed. However, patient has no corneal reflexes. He is not responding to any stimuli. LABS: Labs from this morning show sodium 135, potassium 3.7, BUN 32, creatinine 4.29, hemoglobin 7.0. ASSESSMENT: 1. Acute kidney injury, acute tubular necrosis, oliguric, hemodialysis dependent. We will arrange for hemodialysis tomorrow. Patient's labs are reasonable. He is stable on the vent. Therefore, we will hold off on dialysis today until further decision is made regarding code status. If patient remains full code, we will plan on hemodialysis tomorrow. 2. Vent-dependent respiratory failure with hypoxic respiratory failure. 3. Status post acute myocardial infarction, status post coronary stent placement. 4. Status post right for wet gangrene of the foot. 5. Anoxic encephalopathy. 6. Anemia no active bleeding noted at this time. Maintained on Aranesp. 7. Status post cardiac arrest. PLAN: Hold hemodialysis today. Possible dialysis in a.m. MMODL / IJN: [id number] /
[2019-02-13 14:15] LABS: Glucose,Whole Blood 125 mg/dL (75-99)
--- NOTE | 2019-02-13 15:37 | P.PN ---
Subjective Progress Note Date: 02/13/19 Patient continues to be very severely encephalopathic, unresponsive. Patient currently on propofol 35 g. patient's niece was present today. According to nursing report, when the sedation is decreased, patient respiratory distress, breathing faster, abdominal movement and pulse ox decreases. No meaningful response noted at that time. Patient has sluggishly reacting pupil on the right. Patient has nonreactive surgical left pupil from the past. Oculocephalics are absent. Corneals absent. Patient has a week gag. No response to painful stimuli. Objective - Vital Signs Vital signs: Vital Signs Temp 99.7 F H 02/13/19 12:00 Pulse 99 02/13/19 15:00 Resp 27 H 02/13/19 15:00 BP 105/58 02/13/19 15:00 Pulse Ox 92 L 02/13/19 15:00 Intake & Output 02/12/19 02/13/19 02/13/19 18:59 06:59 18:59 Intake Total 3315.146 8716.977 1208.610 Output Total 217 55 0 Balance 9040.771 4052.977 1208.610 Weight 107.3 kg Intake: IV 540 570 400 Sodium Chloride 0.9% 1, 540 20 000 ml @ 20 mls/hr IV . Q24H [place] Rx#:[id number] Sodium Chloride 0.9% 1, 550 400 000 ml @ 50 mls/hr IV . Q20H [place] Rx#:[id number] Intake, IV Titration 561.044 409.977 371.610 Amount EPINEPHrine 4 mg In 250.00 20.507 229.493 Dextrose 5% in Water 250 ml @ 0.01 MCG/KG/MIN 3. 619 mls/hr IV .Q24H [place] Rx#:[id number] Insulin Regular 100 unit 42.529 89.470 42.117 In Sodium Chloride 0.9% 100 ml @ Per Protocol IV .Q0M [place] Rx#:[id number] Propofol 1,000 mg In 268.515 300 100 Empty Bag 1 bag @ Titrate IV .Q0M [place] Rx#: [id number] Tube Feeding 300 468 312 Other 150 90 125 Output: Urine 40 55 0 Hemodialysis 177 Other: Voiding Method Indwelling Catheter Indwelling Catheter Indwelling Catheter ABP, PAP, CO, CI - Last Documented Arterial Blood Pressure 118/40 - Exam As above. - Labs CBC & Chem 7: 02/13/19 04:25 02/13/19 04:25 Labs: Abnormal Lab Results - Last 24 Hours (Table) 02/12/19 02/12/19 02/12/19 Range/Units 16:23 17:22 18:08 WBC (3.8-10.6) k/uL RBC (4.30-5.90) m/uL Hgb (13.0-17.5) gm/dL Hct (39.0-53.0) % Plt Count (150-450) k/uL Neutrophils # (1.3-7.7) k/uL Lymphocytes # (1.0-4.8) k/uL ABG pO2 (83-108) mmHg ABG Total CO2 (19-24) mmol/L ABG O2 Saturation (94-97) % Sodium (137-145) mmol/L BUN (9-20) mg/dL Creatinine (0.66-1.25) mg/dL Glucose (74-99) mg/dL POC Glucose (mg/dL) 138 H 147 H 176 H (75-99) mg/dL Calcium (8.4-10.2) mg/dL AST (17-59) U/L Total Protein (6.3-8.2) g/dL Albumin (3.5-5.0) g/dL 02/12/19 02/12/19 02/12/19 Range/Units 19:00 19:59 21:37 WBC (3.8-10.6) k/uL RBC (4.30-5.90) m/uL Hgb (13.0-17.5) gm/dL Hct (39.0-53.0) % Plt Count (150-450) k/uL Neutrophils # (1.3-7.7) k/uL Lymphocytes # (1.0-4.8) k/uL ABG pO2 (83-108) mmHg ABG Total CO2 (19-24) mmol/L ABG O2 Saturation (94-97) % Sodium (137-145) mmol/L BUN (9-20) mg/dL Creatinine (0.66-1.25) mg/dL Glucose (74-99) mg/dL POC Glucose (mg/dL) 181 H 217 H 222 H (75-99) mg/dL Calcium (8.4-10.2) mg/dL AST (17-59) U/L Total Protein (6.3-8.2) g/dL Albumin (3.5-5.0) g/dL 02/12/19 02/13/19 02/13/19 Range/Units 23:10 01:20 02:11 WBC (3.8-10.6) k/uL RBC (4.30-5.90) m/uL Hgb (13.0-17.5) gm/dL Hct (39.0-53.0) % Plt Count (150-450) k/uL Neutrophils # (1.3-7.7) k/uL Lymphocytes # (1.0-4.8) k/uL ABG pO2 (83-108) mmHg ABG Total CO2 (19-24) mmol/L ABG O2 Saturation (94-97) % Sodium (137-145) mmol/L BUN (9-20) mg/dL Creatinine (0.66-1.25) mg/dL Glucose (74-99) mg/dL POC Glucose (mg/dL) 218 H 219 H 226 H (75-99) mg/dL Calcium (8.4-10.2) mg/dL AST (17-59) U/L Total Protein (6.3-8.2) g/dL Albumin (3.5-5.0) g/dL 02/13/19 02/13/19 02/13/19 Range/Units 03:13 04:25 04:25 WBC 10.7 H (3.8-10.6) k/uL RBC 2.35 L (4.30-5.90) m/uL Hgb 7.0 L (13.0-17.5) gm/dL Hct 21.9 L (39.0-53.0) % Plt Count 138 L (150-450) k/uL Neutrophils # 8.6 H (1.3-7.7) k/uL Lymphocytes # 0.8 L (1.0-4.8) k/uL ABG pO2 (83-108) mmHg ABG Total CO2 (19-24) mmol/L ABG O2 Saturation (94-97) % Sodium 135 L (137-145) mmol/L BUN 32 H (9-20) mg/dL Creatinine 4.29 H (0.66-1.25) mg/dL Glucose 188 H (74-99) mg/dL POC Glucose (mg/dL) 221 H (75-99) mg/dL Calcium 7.3 L (8.4-10.2) mg/dL AST 82 H (17-59) U/L Total Protein 5.5 L (6.3-8.2) g/dL Albumin 2.5 L (3.5-5.0) g/dL 02/13/19 02/13/19 02/13/19 Range/Units 04:26 05:18 06:28 WBC (3.8-10.6) k/uL RBC (4.30-5.90) m/uL Hgb (13.0-17.5) gm/dL Hct (39.0-53.0) % Plt Count (150-450) k/uL Neutrophils # (1.3-7.7) k/uL Lymphocytes # (1.0-4.8) k/uL ABG pO2 (83-108) mmHg ABG Total CO2 (19-24) mmol/L ABG O2 Saturation (94-97) % Sodium (137-145) mmol/L BUN (9-20) mg/dL Creatinine (0.66-1.25) mg/dL Glucose (74-99) mg/dL POC Glucose (mg/dL) 215 H 191 H 183 H (75-99) mg/dL Calcium (8.4-10.2) mg/dL AST (17-59) U/L Total Protein (6.3-8.2) g/dL Albumin (3.5-5.0) g/dL 02/13/19 02/13/19 02/13/19 Range/Units 06:59 07:05 08:06 WBC (3.8-10.6) k/uL RBC (4.30-5.90) m/uL Hgb (13.0-17.5) gm/dL Hct (39.0-53.0) % Plt Count (150-450) k/uL Neutrophils # (1.3-7.7) k/uL Lymphocytes # (1.0-4.8) k/uL ABG pO2 119 H (83-108) mmHg ABG Total CO2 26 H (19-24) mmol/L ABG O2 Saturation 99.1 H (94-97) % Sodium (137-145) mmol/L BUN (9-20) mg/dL Creatinine (0.66-1.25) mg/dL Glucose (74-99) mg/dL POC Glucose (mg/dL) 169 H 145 H (75-99) mg/dL Calcium (8.4-10.2) mg/dL AST (17-59) U/L Total Protein (6.3-8.2) g/dL Albumin (3.5-5.0) g/dL 02/13/19 02/13/19 02/13/19 Range/Units 08:56 10:08 11:15 WBC (3.8-10.6) k/uL RBC (4.30-5.90) m/uL Hgb (13.0-17.5) gm/dL Hct (39.0-53.0) % Plt Count (150-450) k/uL Neutrophils # (1.3-7.7) k/uL Lymphocytes # (1.0-4.8) k/uL ABG pO2 (83-108) mmHg ABG Total CO2 (19-24) mmol/L ABG O2 Saturation (94-97) % Sodium (137-145) mmol/L BUN (9-20) mg/dL Creatinine (0.66-1.25) mg/dL Glucose (74-99) mg/dL POC Glucose (mg/dL) 133 H 158 H 184 H (75-99) mg/dL Calcium (8.4-10.2) mg/dL AST (17-59) U/L Total Protein (6.3-8.2) g/dL Albumin (3.5-5.0) g/dL 02/13/19 02/13/19 Range/Units 12:57 14:04 WBC (3.8-10.6) k/uL RBC (4.30-5.90) m/uL Hgb (13.0-17.5) gm/dL Hct (39.0-53.0) % Plt Count (150-450) k/uL Neutrophils # (1.3-7.7) k/uL Lymphocytes # (1.0-4.8) k/uL ABG pO2 (83-108) mmHg ABG Total CO2 (19-24) mmol/L ABG O2 Saturation (94-97) % Sodium (137-145) mmol/L BUN (9-20) mg/dL Creatinine (0.66-1.25) mg/dL Glucose (74-99) mg/dL POC Glucose (mg/dL) 143 H 125 H (75-99) mg/dL Calcium (8.4-10.2) mg/dL AST (17-59) U/L Total Protein (6.3-8.2) g/dL Albumin (3.5-5.0) g/dL Microbiology - Last 24 Hours (Table) 02/10/19 01:18 Gram Stain - Final Sputum Sputum Culture - Final Assessment and Plan Assessment: * Status post witnessed cardiac arrest 3, with total downtime of about 15-20 minutes * Anoxic encephalopathy, appears significant. * Toxic metabolic encephalopathy * Status post right below-knee amputation * Diabetes Plan: * EEG revealed moderate to severe background slowing. No epileptiform activity was seen. * Computed tomography scan of the head pending. Patient not medically stable to undergo CT. * Patient clinically not showing signs of improvement. * Other medical conditions as per IM and critical care. * Overall prognosis appears poor for meaningful recovery. * Patient's and daughter were not present. Patient's daughter is the power of [employer].
[2019-02-13] MEDS: DARBEPOETIN ALFA 60 MCG/0.3 ML SYRINGE SQ SCH (15:47)
[2019-02-13] MEDS: SODIUM CHLORIDE 0.9% 1,000 ML IV SCH ×2 (15:48)
[2019-02-13 16:14] LABS: Glucose,Whole Blood 170 mg/dL (75-99)
[2019-02-13 17:22] VITALS: BP 104/59
[2019-02-13 17:39] LABS: Glucose,Whole Blood 157 mg/dL (75-99)
[2019-02-13 18:51] LABS: Glucose,Whole Blood 171 mg/dL (75-99)
[2019-02-13] MEDS: LATANOPROST 0.005% OPHTH DROPS 2.5 ML BTL LEFT EYE SCH (20:16)
[2019-02-13 21:34] LABS: Glucose,Whole Blood 192 mg/dL (75-99)
[2019-02-13 22:20] LABS: Glucose,Whole Blood 177 mg/dL (75-99)
[2019-02-13 23:08] LABS: Glucose,Whole Blood 166 mg/dL (75-99)
[2019-02-14] MEDS: IPRATROPIUM-ALBUTEROL 3 ML NEB INHALATION SCH ×4 (00:06→11:14)
[2019-02-14 00:08] LABS: Glucose,Whole Blood 144 mg/dL (75-99)
[2019-02-14] MEDS: EPINEPHrine 4 MG in DEXTROSE 5% IN WATER 250 ML IV SCH ×2 (01:04)
[2019-02-14] MEDS: INSULIN REGULAR 100 UNIT in SODIUM CHLORIDE 0.9% 100 ML IV SCH (01:16)
[2019-02-14 01:18] LABS: Glucose,Whole Blood 145 mg/dL (75-99)
[2019-02-14] MEDS: PROPOFOL 1,000 MG in EMPTY BAG 1 BAG IV SCH ×2 (01:53→05:36)
[2019-02-14 02:08] LABS: Glucose,Whole Blood 136 mg/dL (75-99)
[2019-02-14 03:16] LABS: Glucose,Whole Blood 170 mg/dL (75-99)
[2019-02-14 04:09] LABS: Glucose,Whole Blood 183 mg/dL (75-99)
[2019-02-14 04:50] LABS: Glucose,Whole Blood 181 mg/dL (75-99)
[2019-02-14 05:27] LABS: Glucose,Whole Blood 161 mg/dL (75-99)
[2019-02-14 05:37] LABS: Basophils # (A) 0.1 k/uL (0-0.2); Basophils % (A) 1 %; Eosinophils # (A) 0.8 k/uL (0-0.7); Eosinophils % (A) 6 %; HCT 22.3 % (39.0-53.0); Hypochromasia Moderate; Lymphocytes # (A) 1.3 k/uL (1.0-4.8); Lymphocytes % (A) 10 %; MCH 29.3 pg (25.0-35.0); MCHC 31.4 g/dL (31.0-37.0); MCV 93.4 fL (80.0-100.0); Mean Platelet Volume 10.7; Monocytes # (A) 0.8 k/uL (0-1.0); Monocytes % (A) 6 %; Neutrophils # (A) 9.6 k/uL (1.3-7.7); Neutrophils % (A) 76 %; Platelet Count 153 k/uL (150-450); RBC 2.39 m/uL (4.30-5.90); RDW 14.9 % (11.5-15.5); WBC 12.7 k/uL (3.8-10.6)
[2019-02-14 05:47] LABS: Albumin 2.6 g/dL (3.5-5.0); Calcium 7.1 mg/dL (8.4-10.2); Potassium 3.8 mmol/L (3.5-5.1); Total Bilirubin 0.4 mg/dL (0.2-1.3); Total Protein 5.5 g/dL (6.3-8.2)
[2019-02-14] MEDS: CALCIUM ACETATE 667 MG TAB PO SCH (06:31)
[2019-02-14 06:32] LABS: Glucose,Whole Blood 137 mg/dL (75-99)
[2019-02-14 07:22] LABS: ABG Base Excess -2.2 mmol/L; ABG HCO3 23 mmol/L (21-25); ABG Oxygen Saturation 93.9 % (94-97); ABG PCO2 36 mmHg (35-45); ABG PO2 69 mmHg (83-108); ABG TCO2 24 mmol/L (19-24)
[2019-02-14 07:23] LABS: Glucose,Whole Blood 160 mg/dL (75-99)
--- NOTE | 2019-02-14 08:30 | XR ---
EXAMINATION TYPE: XR chest 1V portable DATE OF EXAM: 02/14/2019 COMPARISON: Chest x-ray 02/13/2019 HISTORY: Intubated TECHNIQUE: Single frontal view of the chest is obtained. FINDINGS: Endotracheal tube, NG tube, left subclavian central venous catheter, right jugular central venous catheter are overlying appropriate positions. Distal tip of the NG tube not included on the e xam. No evident pneumothorax. Bibasilar increased density persists. Heart is enlarged. IMPRESSION: Findings similar to prior exam. Cardiomegaly, possible bilateral pleural effusions and a ssociated atelectasis versus edema, pneumonia not excluded. There may be some some interval improved aeration in the upper lobes.
[2019-02-14] MEDS: PANTOPRAZOLE 40 MG TABLET PO SCH (09:00)
--- NOTE | 2019-02-14 10:00 | P.PN ---
Subjective Progress Note Date: 02/14/19 Principal diagnosis: Cardiac arrest, acute inferior wall SC, status post stent placement This is 68-year-old gentleman was wasn't admitted to the hospital with ischemic toes and had surgery done. Yesterday patient had a cardiac arrest requiring resuscitation and multiple times. His EKG also showed evidence of inferior wall SC. Patient had a cardiac catheterization and stent placement of the RCA. Patient is still intubated. It appears that patient doesn't follow any comma nds. One of the people's is sluggishly reactive. Patient doesn't have any urine output. He is on dialysis. Hemodynamically patient is still on IV epinephrine at 10 mics. Attempts to wean off epinephrine results in hypotension. Is in sinus rhythm with rate of 80. Patient is getting aspirin, Brillinta and also Lipitor. Metoprolol is being held because of hypotension. Echo is going to be repeated. Prognosis guarded at this time. Patient may need a neurology evaluation. 02/11/2019: Patient remains unresponsive, intubated and on a ventilator. He had an EEG and final report is pending. Suspect the patient has severe anoxic injury of the brain. Patient is also on chronic dialysis. His creatinine is about 4.5. Apparently patient did not tolerate attempts at dialysis yesterday. Patient is still on epinephrine drip. Neurologically, patient is unresponsive. Right pupil shows sluggish reaction. Left pupil hasn't changes related to glaucoma. Corneal reflex is absent. Echo shows severely impaired LV function. His prognosis appears to be poor. We'll continue current management. 02/12/2019: Patient's critical status hasn't shown much improvement. EEG showed significant depressed activity consistent with a toxic encephalopathy. No seizure activity noted. He still on AP drip at 5 mics. Blood pressure is about 110/70. Chest x-ray shows bilateral infiltrate at the bases with some effusion. Neurologically, patient is not responsive. Patient to creatinine is high. Attempts are being made to dialyze him today. Prognosis is poor. 02-13: Patient's remains unresponsive. Patient continues to maintain sinus rhythm. No arrhythmias dictated. Overall his critical status is stable. Patient received dialysis yesterday. His BUN/creatinine showed improvement. Main issue seemed to be encephalopathy and neurological status. Continue supportive care. Prognosis is poor. 02/14/2019. There is no improvement in his neurological status. Patient is still intubated and sedated. Maintaining sinus rhythm. Chest x-ray shows some improvement. No arrhythmias are noted. EEG showed significant depression of background activity. There seemed to be poor prognosis for neurological recovery. Continue current supportive therapy. We'll follow Objective - Vital Signs Vital signs: Vital Signs Temp 100 F H 02/14/19 04:00 Pulse 88 02/14/19 07:38 Resp 22 02/14/19 07:15 BP 104/59 02/13/19 19:00 Pulse Ox 92 L 02/14/19 07:15 Intake & Output 02/13/19 02/14/19 02/14/19 18:59 06:59 18:59 Intake Total 4529.381 7907.458 50 Output Total 45 40 5 Balance 8503.502 5125.458 45 Weight 107.3 kg 117 kg Intake: IV 600 725 50 Piperacillin-Tazobactam 3 125 .375 gm In Sodium Chloride 0.9% 100 ml @ 25 mls/hr IVPB Q12HR [place] Rx #:[id number] Sodium Chloride 0.9% 1, 600 600 50 000 ml @ 50 mls/hr IV . Q20H [place] Rx#:[id number] Intake, IV Titration 644.387 515.458 0 Amount EPINEPHrine 4 mg In 318.393 161.100 Dextrose 5% in Water 250 ml @ 0.01 MCG/KG/MIN 3. 619 mls/hr IV .Q24H [place] Rx#:[id number] Insulin Regular 100 unit 59.893 73.722 0 In Sodium Chloride 0.9% 100 ml @ Per Protocol IV .Q0M [place] Rx#:[id number] Propofol 1,000 mg In 266.101 280.636 Empty Bag 1 bag @ Titrate IV .Q0M [place] Rx#: [id number] Tube Feeding 429 390 Other 155 120 Output: Urine 45 40 5 Other: Voiding Method Indwelling Catheter Indwelling Catheter ABP, PAP, CO, CI - Last Documented Arterial Blood Pressure 126/47 - Exam Patient is intubated and sedated. Hemodynamically maintaining his blood pressure with IV epinephrine. In sinus rhythm. His potassium is normal patient may need dialysis. Neurology consult may be requested. From Cardec standpoint we'll continue current medical therapy except holding metoprolol. GENERAL EXAM: Patient is intubated and sedated HEENT: Right pupil shows sluggish reaction. No corneal reflex NECK: No masses, no nuchal rigidity. CHEST: No chest wall deformity. LUNGS: Diminished breath sounds HEART: S1 and S2 normal ABDOMEN: No hepatosplenomegaly, normal bowel sounds, no guarding or rigidity. SKIN: No rashes CENTRAL NERVOUS SYSTEM: As per neurology EXTREMITIES: Status post aspiration of right leg - Labs CBC & Chem 7: 02/14/19 04:36 02/14/19 04:36 Labs: Abnormal Lab Results - Last 24 Hours (Table) 02/13/19 02/13/19 02/13/19 Range/Units 10:08 11:15 12:57 WBC (3.8-10.6) k/uL RBC (4.30-5.90) m/uL Hgb (13.0-17.5) gm/dL Hct (39.0-53.0) % Neutrophils # (1.3-7.7) k/uL Eosinophils # (0-0.7) k/uL ABG pO2 (83-108) mmHg ABG O2 Saturation (94-97) % Sodium (137-145) mmol/L BUN (9-20) mg/dL Creatinine (0.66-1.25) mg/dL Glucose (74-99) mg/dL POC Glucose (mg/dL) 158 H 184 H 143 H (75-99) mg/dL Calcium (8.4-10.2) mg/dL AST (17-59) U/L Total Protein (6.3-8.2) g/dL Albumin (3.5-5.0) g/dL 02/13/19 02/13/19 02/13/19 Range/Units 14:04 16:03 17:28 WBC (3.8-10.6) k/uL RBC (4.30-5.90) m/uL Hgb (13.0-17.5) gm/dL Hct (39.0-53.0) % Neutrophils # (1.3-7.7) k/uL Eosinophils # (0-0.7) k/uL ABG pO2 (83-108) mmHg ABG O2 Saturation (94-97) % Sodium (137-145) mmol/L BUN (9-20) mg/dL Creatinine (0.66-1.25) mg/dL Glucose (74-99) mg/dL POC Glucose (mg/dL) 125 H 170 H 157 H (75-99) mg/dL Calcium (8.4-10.2) mg/dL AST (17-59) U/L Total Protein (6.3-8.2) g/dL Albumin (3.5-5.0) g/dL 02/13/19 02/13/19 02/13/19 Range/Units 18:39 21:22 22:08 WBC (3.8-10.6) k/uL RBC (4.30-5.90) m/uL Hgb (13.0-17.5) gm/dL Hct (39.0-53.0) % Neutrophils # (1.3-7.7) k/uL Eosinophils # (0-0.7) k/uL ABG pO2 (83-108) mmHg ABG O2 Saturation (94-97) % Sodium (137-145) mmol/L BUN (9-20) mg/dL Creatinine (0.66-1.25) mg/dL Glucose (74-99) mg/dL POC Glucose (mg/dL) 171 H 192 H 177 H (75-99) mg/dL Calcium (8.4-10.2) mg/dL AST (17-59) U/L Total Protein (6.3-8.2) g/dL Albumin (3.5-5.0) g/dL 02/13/19 02/13/19 02/14/19 Range/Units 22:56 23:57 01:07 WBC (3.8-10.6) k/uL RBC (4.30-5.90) m/uL Hgb (13.0-17.5) gm/dL Hct (39.0-53.0) % Neutrophils # (1.3-7.7) k/uL Eosinophils # (0-0.7) k/uL ABG pO2 (83-108) mmHg ABG O2 Saturation (94-97) % Sodium (137-145) mmol/L BUN (9-20) mg/dL Creatinine (0.66-1.25) mg/dL Glucose (74-99) mg/dL POC Glucose (mg/dL) 166 H 144 H 145 H (75-99) mg/dL Calcium (8.4-10.2) mg/dL AST (17-59) U/L Total Protein (6.3-8.2) g/dL Albumin (3.5-5.0) g/dL 02/14/19 02/14/19 02/14/19 Range/Units 01:56 03:03 03:56 WBC (3.8-10.6) k/uL RBC (4.30-5.90) m/uL Hgb (13.0-17.5) gm/dL Hct (39.0-53.0) % Neutrophils # (1.3-7.7) k/uL Eosinophils # (0-0.7) k/uL ABG pO2 (83-108) mmHg ABG O2 Saturation (94-97) % Sodium (137-145) mmol/L BUN (9-20) mg/dL Creatinine (0.66-1.25) mg/dL Glucose (74-99) mg/dL POC Glucose (mg/dL) 136 H 170 H 183 H (75-99) mg/dL Calcium (8.4-10.2) mg/dL AST (17-59) U/L Total Protein (6.3-8.2) g/dL Albumin (3.5-5.0) g/dL 02/14/19 02/14/19 02/14/19 Range/Units 04:36 04:36 04:38 WBC 12.7 H (3.8-10.6) k/uL RBC 2.39 L (4.30-5.90) m/uL Hgb 7.0 L (13.0-17.5) gm/dL Hct 22.3 L (39.0-53.0) % Neutrophils # 9.6 H (1.3-7.7) k/uL Eosinophils # 0.8 H (0-0.7) k/uL ABG pO2 (83-108) mmHg ABG O2 Saturation (94-97) % Sodium 132 L (137-145) mmol/L BUN 39 H (9-20) mg/dL Creatinine 5.13 H (0.66-1.25) mg/dL Glucose 146 H (74-99) mg/dL POC Glucose (mg/dL) 181 H (75-99) mg/dL Calcium 7.1 L (8.4-10.2) mg/dL AST 77 H (17-59) U/L Total Protein 5.5 L (6.3-8.2) g/dL Albumin 2.6 L (3.5-5.0) g/dL 02/14/19 02/14/19 02/14/19 Range/Units 05:15 06:19 07:11 WBC (3.8-10.6) k/uL RBC (4.30-5.90) m/uL Hgb (13.0-17.5) gm/dL Hct (39.0-53.0) % Neutrophils # (1.3-7.7) k/uL Eosinophils # (0-0.7) k/uL ABG pO2 (83-108) mmHg ABG O2 Saturation (94-97) % Sodium (137-145) mmol/L BUN (9-20) mg/dL Creatinine (0.66-1.25) mg/dL Glucose (74-99) mg/dL POC Glucose (mg/dL) 161 H 137 H 160 H (75-99) mg/dL Calcium (8.4-10.2) mg/dL AST (17-59) U/L Total Protein (6.3-8.2) g/dL Albumin (3.5-5.0) g/dL 02/14/19 Range/Units 07:16 WBC (3.8-10.6) k/uL RBC (4.30-5.90) m/uL Hgb (13.0-17.5) gm/dL Hct (39.0-53.0) % Neutrophils # (1.3-7.7) k/uL Eosinophils # (0-0.7) k/uL ABG pO2 69 L (83-108) mmHg ABG O2 Saturation 93.9 L (94-97) % Sodium (137-145) mmol/L BUN (9-20) mg/dL Creatinine (0.66-1.25) mg/dL Glucose (74-99) mg/dL POC Glucose (mg/dL) (75-99) mg/dL Calcium (8.4-10.2) mg/dL AST (17-59) U/L Total Protein (6.3-8.2) g/dL Albumin (3.5-5.0) g/dL Assessment and Plan (1) History of cardiac arrest Current Visit: Yes Status: Acute Code(s): Z86.74 - PERSONAL HISTORY OF SUDDEN CARDIAC ARREST SNOMED Code(s): 322254018 (2) Acute SC, inferior wall Current Visit: Yes Status: Acute Code(s): I21.19 - STEMI INVOLVING OTH CORONARY ARTERY OF INFERIOR WALL SNOMED Code(s): 29527512 (3) Ischemic leg Current Visit: Yes Status: Acute Code(s): I99.8 - OTHER DISORDER OF CIRCULAT ORY SYSTEM SNOMED Code(s): 726228085 (4) Chronic renal failure Current Visit: Yes Status: Acute Code(s): N18.9 - CHRONIC KIDNEY DISEASE, UNSPECIFIED SNOMED Code(s): 25126159 (5) Anoxic brain injury Current Visit: Yes Status: Acute Code(s): G93.1 - ANOXIC BRAIN DAMAGE, NOT ELSEWHERE CLASSIFIED SNOMED Code(s): 029529266 (6) Acute on chronic diastolic CHF (congestive heart failure) Current Visit: Yes Status: Acute Code(s): I50.33 - ACUTE ON CHRONIC DIASTOLIC (CONGESTIVE) HEART FAILURE SNOMED Code(s): 609174680 (7) Acute on chronic systolic CHF (congestive heart failure), NYHA class 1 Current Visit: Yes Status: Acute Code(s): I50.23 - ACUTE ON CHRONIC SYSTOLIC (CONGESTIVE) HEART FAILURE SNOMED Code(s): 001882093 Plan: Continue current medical therapy. From cardiac standpoint, no acute events are noted. We'll follow as needed
--- NOTE | 2019-02-14 10:12 | P.PN ---
Subjective Progress Note Date: 02/14/19 Refugio Saenz, is a 68-year-old male who presented to [facility] emergency room with pain in the right foot, he was evaluated in emergency room and had blackish discoloration of the right fifth toe with surrounding erythema and tenderness, patient was started on IV antibiotics Zosyn, vancomycin, and clindamycin, he was admitted to medical floor vascular surgery consultation was requested for possible amputation due to evidence of gangrene. Infectious disease consultation was requested. Patient has a known history of insulin-dependent diabetes mellitus, his glucose level was well controlled up until September of this year his A1c in June was 7.1 and in September was 7.3 however apparently patient stopped taking his insulin and his medications and his A1c was up to 9.8 in November, he has a known history of right foot ulcer he was admitted to the hospital with right foot cellulitis and ulcer in 2014 and he was followed at the wound care clinic in 2015 however he was doing well up until recently. Patient also has a known history of hypertension, hyperlipidemia, he denies any history of coronary artery disease or congestive heart failure, he had an echocardiogram done in 2014 at that time he had normal left ventricular function was normal ejection fraction, no significant valvular disease and no pulmonary hypertension. 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 On 01/17/2019 patient's alert and oriented 3. Patient had fourth and fifth toe amputation with Dr. Edward this morning. Patient having some low blood pressure will give 500 mL bolus. Patient denies chest pain or shortness of breath. Patient denies nausea vomiting or diarrhea. Patient is having some increased pain to foot area pain medications ordered 01/18/2019, patient seen eval examined while covering for Dr. Granger, waking up this morning slightly slow to respond but not confused, breathing comfortably denies any chest pain labs reviewed today patient has been evaluated by Dr. Bassett, white cell count is coming down to 19,000, lactic acid level is normalized, patient has been on broad-spectrum antibiotics with vascular surgery on board 01/19/2019, patient seen and evaluated examined in the ICU intubated on full ventilator support, patient had gradual loss of consciousness has been more lethargic arterial blood gases were checked shows hypercapnic and hypoxic respiratory failure was intubated in the ICU, patient has been placed on propof ol he was volume depleted depleted aggressive fluid resuscitation were performed, is still requiring levophed intermittently, patient was also noted to be hypoglycemic 7030 insulin and other oral hypoglycemic agents were discontinued, ultrasound of the abdomen has been performed which is reviewed no obvious hydronephrosis seen, patient has decreased urine output along with rising BUN/creatinine appeared to be acute tubular necrosis, patient also requiring intermittent bolus of D10 for hypoglycemia, wounds has been evaluated by vascular surgery noted recommendation, patient has very poor venous access, will put a central line in, critical care time 45 minutes during procedure, due to altered mental status CT of the head was performed which was negative On 01/20/2019 patient remains in the intensive care unit on mechanical ventilation. Levophed has been on hold blood pressures has sustained. Creatinine has increased to 4.17 and bun 56. Nephrology services are following. Per nursing staff patient does follow commands during sedation holiday ABGs have improved. Discussed case with vascular surgeon nurse practitioner possible BKA discussion. White blood cell decreasing to 16.0. Critical care services are following. Patient remains on Zosyn for IV antibiotics. Infectious disease following 01/21/2019 patient remains on mechanical ventilation on in the intensive care unit. Patient remains sedated, on propofol. However per nursing staff patient does follow commands during sedation holiday. Patient is on 50% FiO2, 5 PEEP, tidal volume 500. Levophed off since 01/20/20. Blood pressure remains in the 130's-150's systolic. Creatinine 4.35 from 4.17 and BUN 57 from 56, Calcium 7.0, phosphorus 5.9 Nephrology is following. Orogastric tube replaced this morning. Per nursing staff OG tube was coiled in patient's mouth with tube feeds running. Chest x-ray repeated, no significant change from previous. ABG improving, still metabolic acidosis. WBC of 14.1 down from 16. Afebrile. Infectious disease is following patient is maintained on Zosyn. Will send C. diff sample due to new onset diarrhea for 1 day. Hyperglycemia noted (glucose 200's). Will discuss tube feed formula with dietary. If no changes can be made will adjust sliding scale. On 01/22/2019 patient remains sedated on mechanical ventilation in the intensive care unit. Per nursing staff patient is to have a BKA today with Dr. Edward. Patient remains off pressors, blood pressure has been stable. Chest x-ray repeated this morning, per pulmonary. No significant change in ABGs. Creatinine continues to increase, 4.84 today BUN 60, patient is still making adequate urine output nephrology is following. Tube feeds on hold, for pending OR. WBC 14.2, temperature overnight 100F. Please is following patient is maintained on Zosyn. C. diff sample was negative. 01/23/2019 patient remains sedated and on mechanical ventilation in the ICU. He underwent right BKA yesterday, 01/22/[address] Edward. Estimated blood loss 150 mL. He had a temp of 100 last night. Urine output is about 50 mL per hour. Creatinine has gone down from 4.84-4.82. Nephrology is following closely. No plans for hemodialysis yet. Patient's blood sugars are starting to become more elevated. They're in the 180s to 200s. Tube feedings are being adjusted. White count 13.7 hemoglobin 10.3 On 01/24/2019 patient remains sedated on mechanical ventilation in the intensive care unit. Decreased urine output throughout night. Creatinine 5.15 and bun 68. Patient remains on insulin drip. WBC 14.1. Patient having low-grade temps. Patient remains closely followed by critical care consulting providers On 01/25/2019 patient was seen and examined in the intensive care unit, he is currently alert and maintained on BiPAP trial, he is making more urine output, and no hemodialysis is scheduled at this time, creatinine improved, down from 5.15-4.44 white blood count down to 11.3 patient is followed by nephrology, infectious disease, pulmonary and critical care and vascular surgery On 01/26/2019 patient was seen and examined in the ICU, he is intubated sedated maintained on mechanical ventilation, creatinine went up today and he was started on hemodialysis, Zosyn has today, at this time will resume Zosyn, we have asked infectious disease to see patient and reassess antibiotics, otherwise patient is stable there is no fever or chills, he continues to have a rectal tube and having large amount of diarrhea, C. diff was checked and was negative will repeat test today. On 01/27/2019 patient remains on mechanical ventilation in the intensive care unit. Creatinine trending down today 4.76 and bun 77. Patient remains on Lasix drip per nephrology services. White count 11.8. She remains on IV Zosyn. Sedation holiday performed per nursing staff and critical care recommendation. On 01/28/2019 patient remains in the intensive care unit on mechanical ventilation. Sedation currently turned off. Patient is awake and following commands possible extubation today per critical care. Patient also received hemodialysis this will be the patient's third round of hemodialysis. Creatinine is trending down 4.44. Patient remains on Lasix drip. On 01/29/2019 patient remains in ICU intubated sedated maintained on mechanical ventilation, he had to CPAP trials yesterday, he is still maintained on hemodialysis, creatinine is elevated at 4.8 and BUN 89. On 01/30/2019 patient remains on mechanical ventilation in the intensive care unit. Patient is off sedation at this time and following commands. CPAP trial in place. Possible extubation today. Patient currently getting hemodialysis. Permanent hemodialysis catheter placed yesterday. Creatinine is trending down. Patient taken off insulin drip. on 01/31/2019 patient remains in intensive care unit on mechanical ventilation. Discussed case with critical care doctor Dr. Dominguez Yesterday. Patient unable to wean. we'll continue to monitor patient over the weekend and consider possible trach next week. Patient also received hemodialysis yesterday. On 02/01/2019 patient was seen and examined in the ICU he is intubated and maegan ntained on mechanical ventilation sedation is being stopped now for CPAP trial on 02/02/2019 patient was seen and examined in the ICU he has been extubated since yesterday, he is tolerating well maintained on oxygen via nasal cannula, he seems somnolent however he is opening his eyes and answering questions by nodding his head and trying to speak, there is no fever or chills no headache or dizziness no chest pain no shortness of breath he has occasional cough no nausea or vomiting no abdominal pain. on 02/03/2019 patient is currently sitting up in chair on nasal cannula. Patient does wake up and follow commands. Per nursing staff antibiotics due to ID is following per nursing will get a hold of infectious disease to further evaluate need for antibiotics. at this time patient denies chest pain or shortness of breath. Patient denies nausea vomiting or diarrhea. Patient denies any urinary burning or frequency. patient to receive hemodialysis today remains on IV Lasix on 02/04/2019 patient is currently resting comfortably in bed. Patient is alert and oriented. Per nursing staff patient no longer needs antibiotics Dr. Bassett is following for infectious disease.patient received dialysis yesterday will receive hemodialysis again tomorrow maintained on IV Lasix. Elevated blood pressure. Hydralazine by mouth has been added. At this time patient denies chest pain or shortness of breath. Patient denies nausea vomiting or diarrhea. Patient denies any urinary burning or frequency. on 02/05/2019 patient is currently resting comfortably in chair. Per nursing staff patient had episode of increased lethargy last night requiring BiPAP and Narcan. per critical care and narcotics and benzos were DC'd at this time. Patient is now awake and alert 3. Patient able to follow commands and answer all questions. Patient denies any chest pain or shortness of breath. Patient denies nausea vomiting or diarrhea. Patient denies any urinary burning or frequency. 02/06/2019 patient is currently resting comfortably in bed.Patient did undergo hemodialysis yesterday. Lasix has been decreased per nephrology. Patient denies chest pain or shortness of breath. Patient denies vomiting or diarrhea. Patient denies any urinary burning or frequency. Working on discharge planning possible discharge to ECF next week. On 02/07/2019 patient has moved out of the intensive care unit to [facility] care. Patient currently getting hemodialysis. Discussed case with nephrology services planning to do dialysis today and hold off during the weekends assess patient renal function on Sunday. Also patient is planning to be discharged to E[facility] [place] now. This time patient denies chest pain. Patient denies nausea vomiting or diarrhea. Patient having some mild discomfort back will add Tylenol. Patient denies any urinary burning or frequency edward catheter remains in place. On 02/08/2019 patient was seen and examined on the telemetry floor he is alert responsive in no apparent distress he was more confused today, there is no fever or chills no headache or dizziness no chest pain no shortness of breath no cough no nausea or vomiting no abdominal pain no diarrhea no burning with urination no frequency or urgency and no hematuria. On 02/09/2019 patient had cardiac arrest this morning he was coded multiple times and was transferred to intensive care unit, he was seen by Dr. Bear who was covering for Dr. 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 On 02/10/2019 patient is currently in the intensive care unit on mechanical ventilation. Patient is status post cardiac arrest. Patient was taken to the cardiac Pharmacy Consultant and found to have been a percent occluded RCA. Patient did receive stent in currently on Brilinta. Patient is currently on mechanical ve ntilation with sedation and epinephrine drip. Currently receiving hemodialysis. Critical care services are following. On 02/11/2019 patient remains in the intensive care unit on mechanical ventilat ion. Patient was evaluated by neurology services EEG and computed tomography scan of the brain has been ordered. Per nursing staff patient may not be stable enough for CT at this time. Patient remains on epinephrine drip for blood pressure control. Patient maintained on IV Zosyn per critical care. Patient to receive hemodialysis tomorrow 12/13/2018. On 02/12/2019 patient was seen and examined in the ICU, he is intubated sedated maintained on mechanical ventilation, he is not tolerating weaning off sedation, he is having difficulty tolerating hemodialysis, today the was approached in regard to possibility of terminal weaning and Comfort care only, patient will think about it and will rediscuss again tomorrow . On 02/13/2019 patient remains in the intensive care unit. Per nursing staff patient unable to wean off sedation. Comfort care was discussed with . Patient unable to tolerate hemodialysis. We'll await family decision in regards to comfort care On 02/14/2019 patient remains in the intensive care unit. Patient unresponsive off sedation. The pressure also decreasing to the 30s systolic without epinephrine drip. Per nursing staff family did not come in yesterday planning to come in today to make final decision in regards to comfort care and terminal weaning. Dialysis currently on hold until decision is made Objective - Vital Signs Vital signs: Vital Signs Temp 100 F H 02/14/19 04:00 Pulse 88 02/14/19 07:38 Resp 22 02/14/19 07:15 BP 104/59 02/13/19 19:00 Pulse Ox 92 L 02/14/19 07:15 Intake & Output 02/13/19 02/14/19 02/14/19 18:59 06:59 18:59 Intake Total 9408.989 0633.458 50 Output Total 45 40 5 Balance 1778.785 6632.458 45 Weight 107.3 kg 117 kg Intake: IV 600 725 50 Piperacillin-Tazobactam 3 125 .375 gm In Sodium Chloride 0.9% 100 ml @ 25 mls/hr IVPB Q12HR [place] Rx #:[id number] Sodium Chloride 0.9% 1, 600 600 50 000 ml @ 50 mls/hr IV . Q20H [place] Rx#:[id number] Intake, IV Titration 644.387 515.458 0 Amount EPINEPHrine 4 mg In 318.393 161.100 Dextrose 5% in Water 250 ml @ 0.01 MCG/KG/MIN 3. 619 mls/hr IV .Q24H [place] Rx#:[id number] Insulin Regular 100 unit 59.893 73.722 0 In Sodium Chloride 0.9% 100 ml @ Per Protocol IV .Q0M [place] Rx#:[id number] Propofol 1,000 mg In 266.101 280.636 Empty Bag 1 bag @ Titrate IV .Q0M [place] Rx#: [id number] Tube Feeding 429 390 Other 155 120 Output: Urine 45 40 5 Other: Voiding Method Indwelling Catheter Indwelling Catheter ABP, PAP, CO, CI - Last Documented Arterial Blood Pressure 126/47 - Exam HEENT head normocephalic and atraumatic Neck is supple no JVD no goiter no lymphadenopathy Chest exam reveals diminished lung sounds, a few scattered rhonchi no wheezing Cardiac exam reveals regular heart sounds S1 and S2 no gallops no murmurs Abdomen is obese, soft nontender no organomegaly with normal bowel sounds Extremity right BKA. Dressing is clean dry and intact Neuro currently on mechanical ventilation and sedation unequal pupils left greater than right. Right pupil sluggish. Patient reports he had eye surgery previously unable to recall for what but does report this is chronic. No other neuro deficits noted - Labs CBC & Chem 7: 02/14/19 04:36 02/14/19 04:36 Labs: Abnormal Lab Results - Last 24 Hours (Table) 02/13/19 02/13/19 02/13/19 Range/Units 10:08 11:15 12:57 WBC (3.8-10.6) k/uL RBC (4.30-5.90) m/uL Hgb (13.0-17.5) gm/dL Hct (39.0-53.0) % Neutrophils # (1.3-7.7) k/uL Eosinophils # (0-0.7) k/uL ABG pO2 (83-108) mmHg ABG O2 Saturation (94-97) % Sodium (137-145) mmol/L BUN (9-20) mg/dL Creatinine (0.66-1.25) mg/dL Glucose (74-99) mg/dL POC Glucose (mg/dL) 158 H 184 H 143 H (75-99) mg/dL Calcium (8.4-10.2) mg/dL AST (17-59) U/L Total Protein (6.3-8.2) g/dL Albumin (3.5-5.0) g/dL 02/13/19 02/13/19 02/13/19 Range/Units 14:04 16:03 17:28 WBC (3.8-10.6) k/uL RBC (4.30-5.90) m/uL Hgb (13.0-17.5) gm/dL Hct (39.0-53.0) % Neutrophils # (1.3-7.7) k/uL Eosinophils # (0-0.7) k/uL ABG pO2 (83-108) mmHg ABG O2 Saturation (94-97) % Sodium (137-145) mmol/L BUN (9-20) mg/dL Creatinine (0.66-1.25) mg/dL Glucose (74-99) mg/dL POC Glucose (mg/dL) 125 H 170 H 157 H (75-99) mg/dL Calcium (8.4-10.2) mg/dL AST (17-59) U/L Total Protein (6.3-8.2) g/dL Albumin (3.5-5.0) g/dL 02/13/19 02/13/19 02/13/19 Range/Units 18:39 21:22 22:08 WBC (3.8-10.6) k/uL RBC (4.30-5.90) m/uL Hgb (13.0-17.5) gm/dL Hct (39.0-53.0) % Neutrophils # (1.3-7.7) k/uL Eosinophils # (0-0.7) k/uL ABG pO2 (83-108) mmHg ABG O2 Saturation (94-97) % Sodium (137-145) mmol/L BUN (9-20) mg/dL Creatinine (0.66-1.25) mg/dL Glucose (74-99) mg/dL POC Glucose (mg/dL) 171 H 192 H 177 H (75-99) mg/dL Calcium (8.4-10.2) mg/dL AST (17-59) U/L Total Protein (6.3-8.2) g/dL Albumin (3.5-5.0) g/dL 02/13/19 02/13/19 02/14/19 Range/Units 22:56 23:57 01:07 WBC (3.8-10.6) k/uL RBC (4.30-5.90) m/uL Hgb (13.0-17.5) gm/dL Hct (39.0-53.0) % Neutrophils # (1.3-7.7) k/uL Eosinophils # (0-0.7) k/uL ABG pO2 (83-108) mmHg ABG O2 Saturation (94-97) % Sodium (137-145) mmol/L BUN (9-20) mg/dL Creatinine (0.66-1.25) mg/dL Glucose (74-99) mg/dL POC Glucose (mg/dL) 166 H 144 H 145 H (75-99) mg/dL Calcium (8.4-10.2) mg/dL AST (17-59) U/L Total Protein (6.3-8.2) g/dL Albumin (3.5-5.0) g/dL 02/14/19 02/14/19 02/14/19 Range/Units 01:56 03:03 03:56 WBC (3.8-10.6) k/uL RBC (4.30-5.90) m/uL Hgb (13.0-17.5) gm/dL Hct (39.0-53.0) % Neutrophils # (1.3-7.7) k/uL Eosinophils # (0-0.7) k/uL ABG pO2 (83-108) mmHg ABG O2 Saturation (94-97) % Sodium (137-145) mmol/L BUN (9-20) mg/dL Creatinine (0.66-1.25) mg/dL Glucose (74-99) mg/dL POC Glucose (mg/dL) 136 H 170 H 183 H (75-99) mg/dL Calcium (8.4-10.2) mg/dL AST (17-59) U/L Total Protein (6.3-8.2) g/dL Albumin (3.5-5.0) g/dL 02/14/19 02/14/19 02/14/19 Range/Units 04:36 04:36 04:38 WBC 12.7 H (3.8-10.6) k/uL RBC 2.39 L (4.30-5.90) m/uL Hgb 7.0 L (13.0-17.5) gm/dL Hct 22.3 L (39.0-53.0) % Neutrophils # 9.6 H (1.3-7.7) k/uL Eosinophils # 0.8 H (0-0.7) k/uL ABG pO2 (83-108) mmHg ABG O2 Saturation (94-97) % Sodium 132 L (137-145) mmol/L BUN 39 H (9-20) mg/dL Creatinine 5.13 H (0.66-1.25) mg/dL Glucose 146 H (74-99) mg/dL POC Glucose (mg/dL) 181 H (75-99) mg/dL Calcium 7.1 L (8.4-10.2) mg/dL AST 77 H (17-59) U/L Total Protein 5.5 L (6.3-8.2) g/dL Albumin 2.6 L (3.5-5.0) g/dL 02/14/19 02/14/19 02/14/19 Range/Units 05:15 06:19 07:11 WBC (3.8-10.6) k/uL RBC (4.30-5.90) m/uL Hgb (13.0-17.5) gm/dL Hct (39.0-53.0) % Neutrophils # (1.3-7.7) k/uL Eosinophils # (0-0.7) k/uL ABG pO2 (83-108) mmHg ABG O2 Saturation (94-97) % Sodium (137-145) mmol/L BUN (9-20) mg/dL Creatinine (0.66-1.25) mg/dL Glucose (74-99) mg/dL POC Glucose (mg/dL) 161 H 137 H 160 H (75-99) mg/dL Calcium (8.4-10.2) mg/dL AST (17-59) U/L Total Protein (6.3-8.2) g/dL Albumin (3.5-5.0) g/dL 02/14/19 Range/Units 07:16 WBC (3.8-10.6) k/uL RBC (4.30-5.90) m/uL Hgb (13.0-17.5) gm/dL Hct (39.0-53.0) % Neutrophils # (1.3-7.7) k/uL Eosinophils # (0-0.7) k/uL ABG pO2 69 L (83-108) mmHg ABG O2 Saturation 93.9 L (94-97) % Sodium (137-145) mmol/L BUN (9-20) mg/dL Creatinine (0.66-1.25) mg/dL Glucose (74-99) mg/dL POC Glucose (mg/dL) (75-99) mg/dL Calcium (8.4-10.2) mg/dL AST (17-59) U/L Total Protein (6.3-8.2) g/dL Albumin (3.5-5.0) g/dL Assessment and Plan Assessment: #1 cardiac arrest secondary to acute ST elevation inferior wall MA requiring multiple prolonged codes.underwent cardiac cath with stents to RCA. Currently maintained on mechanical ventilation. Epinephrine drip in place. Chest x-ray completed showing improvement in lung volume irrigation. Pulmonary and critical care service is following. Patient currently maintained on Zosyn. Post cardiac cath 2-D echo completed showing EF of 35-40%. Patient currently on epinephrine drip #2. Anoxic encephalopathy and toxic metabolic encephalopathy post prolonged cardiac arrest. Neurology services are following. Patient will undergo EEG. Computed tomography scan has been ordered for when patient is stable #3 gangrene involving the right fifth toe with surrounding cellulitis Status post amputation of fourth and fifth toe with Dr. Edward and status post right BKA. #4 sepsis present on admission as evidenced by fever, leukocytosis, and elevated lactic acid. wound cultures growing gram-negative bacilli. White blood cell improving down to 9.3. patient has completed course of antibiotics per infectious disease no need for antibiotics at this time #5 acute hypoxic and hypercapnic respiratory failure with altered mental status changes secondary to severe sepsis. Patient was transferred to the intensive c are unit and placed on mechanical ventilation. patient has been successfully extubated to 2 L. #6. Hypotension secondary to septic shock requiring Levophed for pressure support. resolved #7. Acute kidney injury secondary to ATN secondary to hypotension as well as vancomycin toxicity. Nephrology services are following. Ultrasound completed showing no evidence of hydronephrosis. currently receiving hemodialysis. Permanent hemodialysis catheter placed on 01/29/2019. On 02/10/2018 patient r eceiving hemodialysis #8. history of essential hypertension. Cardiology services following. EF 50- 55%. Per cardiology services no evidence of acute coronary syndrome at this time. hydralazine has been added by mouth #9. insulin-dependent diabetes mellitus, with poor control due to noncompliance last hemoglobin A1c was 9.8 at this time will hold glipizide, Januvia and metformin, and cover was insulin to sliding scale will adjust medications as needed. Blood sugars have been in the 200s after episode of hypoglycemia. Patient currently on insulin drip for tight blood sugar control. Post cardiac arrest patient started back on insulin drip #10. underlying history of diabetic complications of peripheral neuropathy and retinopathy. #11. poor compliance with medical management, patient had extensive counseling in the last year, his A1c was down to 7.1 in June however it was up to 9.8 again recently. #12 underlying history of hyperlipidemia maintained on atorvastatin, on hold. #13. Hypoglycemia. Home meds DC'd. Tube feedings have been initiated. Hypoglycemia has resolved #14. volume overload. Patient maintained on IV Lasix. Nephrology services are following #15. History of glaucoma with previous surgeries to left eye. Unequal pupils which patient reports is chronic. patient maintained on multiple eyedrops DVT prophylaxis heparin. GI prophylaxis Protonix Critical care, vascular surgery, infectious disease, cardiology and nephrology services following Discussion was held with family in regards to possible comfort care I performed an examination of the patient and discussed their management with the Nurse Practitioner. I have reviewed the Nurse Practitioner's notes and agree with the documented findings and plan of care
[2019-02-14 10:32] VITALS: BMI 44.2
--- NOTE | 2019-02-14 10:39 | PN ---
PROGRESS NOTE The patient is seen for followup for acute kidney injury, currently hemodialysis dependent. The patient has had cardiac arrest x4. He is status post right AKA during this hospitalization. He remains on the vent. He currently is unresponsive. He has no corneal reflexes. There is underlying anoxic encephalopathy. The patient remains hemodialysis dependent with oliguric renal failure. Family was going to decide regarding comfort care and terminal wean. However, they have not made the decision yet. We held off on dialysis yesterday. We will plan on dialysis today. PHYSICAL EXAMINATION: On examination, patient remains on the vent. Blood pressure was 126/47, heart rate 74 per minute. He is afebrile. EXAMINATION OF THE HEART: S1, S2. EXAMINATION OF LUNGS: Bilateral breath sounds are heard. Abdomen is soft, distended. Examination of lower extremities shows right AKA, edema 2+ left lower extremity. There is edema noted in upper extremities as well. SOLE LEVELER examination shows no response. LABS: Labs show sodium 132, potassium 3.8, BUN 39, creatinine 5.1, albumin 2.6. ASSESSMENT: 1. Acute kidney injury, acute tubular necrosis, currently hemodialysis dependent with volume overload. We will plan for dialysis today, however, currently awaiting family's decision regarding terminal wean and comfort care measures. 2. Volume overload. We will continue to increase UF as tolerated with hemodialysis. I will add IV Lasix as well to the medications. 3. Status post cardiac arrest. 4. Status post acute myocardial infarction, status post coronary stent placement. 5. Anemia with no active bleeding noted currently. 6. Hyperphosphatemia. 7. Hypoxic respiratory failure, maintained on the vent. 8. Anoxic encephalopathy. 9. Status post right AKA for gangrene of the foot. PLAN: Hemodialysis today, add IV Lasix. Awaiting family's decision regarding terminal wean/comfort care measures. MMODL / IJN: [id number] /
--- NOTE | 2019-02-14 10:40 | P.PN ---
Subjective Progress Note Date: 02/14/19 Principal diagnosis: Cardiac arrest 68-year-old male patient who got transferred to the intensive care unit after a acute cardiopulmonary arrest that occurred on the medical floor this morning. I am covering today for Dr. Dominguez and for that reason I am seeing this patient in the intensive care unit. Briefly, he has prolonged hypoxic respiratory failure that occurred following a infected gangrenous right foot for which the patient underwent a right below-knee amputation. He had a staphylococcal infection. He also developed acute kidney injury and the patient is currently on dialysis 3 times a week and his last dialysis session was done on Sunday. The patient has also [id number] diabetes mellitus, hypertension and hypertensive heart and peripheral neuropathy and hyperlipidemia and COPDThe patient developed an acute cardiac arrest. The patient was found to be unresponsive this morning. He was found to be PA. Immediately, the core he was involved in the patient was given, 4 rounds of epinephrine, bicarbonate he was intubated and brought into the intensive care unit. Initial EKG showed atrial fibrillation. In addition to a significant ST segment elevation involving the inferior leads and a right bundle branch block patter . Within minutes after his arrival to the intensive care unit, the patient is second code which lasted for around 5 minut es and this was a PEA rhythm and currently with going into the third code. He is currently receiving epinephrine and CPR as the patient went into a PEA. Cardiology is on the case. He has seen the patient the bedside. Breath sounds are equal and bilateral. Potassium level is at 4.7. The blood gases that was done and I showed a pH of 7.01 with a pCO2 of 76 and pO2 of 140. His lactic acid level was 8.8. His BUN is at 43 with a creatinine of 5.0 and a serum bicarbonate this morning prior to the code was 25. His hemoglobin was at 10.1. White cell count of 8.7. Patient was evaluated today on 02/10/2019, intubated, mechanically ventilated, on very small dose of propofol, not responding to any stimuli. Patient had at least 3 episodes of cardiac arrest yesterday requiring reintubation, and required cardiac catheterization. His ventilator settings presently are tidal volume of 500 assist control rate of 20 FiO2 of 50% PEEP of 12. Patient is on propofol at 10 mcg/kg/m, he is on hemodialysis, he is on epinephrine at 0.075 mcg/kg/m. Chest x-ray showed right lower lobe consolidation. Possibly related to aspiration, hence his Zosyn was restarted today empirically. His IV fluid is at 25 mL per hour. And he is about to receive hemodialysis in the next few minutes. ABG this morning on 100% showed a pO2 of 348 pCO2 of 31 pH of 7.58. Electrolytes are normal BUN is 54 creatinine 5.47. WBC count is 17.1 hemoglobin is 9.3. Troponin 41,000. Yesterday the patient had successful stenting of totally occluded distal RCA and he was found to have intracoronary thrombus noted in the takeoff of the PLV. Remains on heparin. Reevaluated today on 02/11/2019, remains in the intensive care unit, intubated, mechanically ventilated. His ventilator settings are tidal volume of 500 assist control rate of 20 PEEP was increased at 12, FiO2 at 60%, remains on norepinephrine at 0.07 mcg/kg/m. I have changed today his PEEP up to 12 and I kept him on FiO2 at 60%. Chest x-ray continues to show evidence of pulmonary edema, no plans to ultrafiltrate the patient today. Patient will be started today on enteral feeding. He was seen by neurology, and it is felt that the patient has severe anoxic brain injury. As a matter of fact on my examination today, patient had no corneal reflexes, he had negative calorics, he does breathe on his own, and he at times asynchronous with the ventilator when sedation is on hold. But does not follow any instructions does not respond to any pain.ABG today showed a pO2 of 90 pCO2 of 39 pH of 7.44 WBC count is 16.8 hemoglobin is 8, electrolytes are normal BUN is 35 creatinine 4.54 Patient was reevaluated today on 02/12/2019, remains in the intensive care unit, remains on the same ventilator settings FiO2 is down to 50% from 60% yesterday, PEEP remains at 12, assist control rate of 20 and tidal volume of 500. Remains on epinephrine drip at 0.05 mcg/kg/m. Remains on propofol at 35 mcg/kg/m. Patient remains unresponsive, he gets asynchronous with the ventilator once he is off propofol, but no responses whatsoever including no responses to deep painful stimuli. Patient clearly sustained severe anoxic brain injury, and we should seriously consider comfort care measures on this patient, however family is not quite ready for this at this point yet. In the meantime we continue present supportive care measures, and the patient remains on mechanical ventilation, multiple cardiac meds as listed, remains on hemodialysis, empiric antibiotics, and a GI and DVT prophylaxis. ABG today showed a pO2 of 114 pCO2 of 36 pH of 7.44 hence I cut down the FiO2 from 60% to 50%. WBC count is 15.1 hemoglobin is 7.3, electrodes are normal BUN is 43 creatinine is 5.68, remains on hemodialysis. Reevaluated today on 02/13/2019, patient remains in the ICU, intubated, mechanically ventilated, his ventilator settings were reviewed and he is prese ntly placed on a tidal volume of 500, assist control rate 20 deep is down to 8 from 12 his FiO2 is at 50%. ABG showed a pO2 of 119 pCO2 of 37 pH of 7.44 CBC showed slight drop in his hemoglobin down to 7 WBC count is 10.7 hemoglobin is 7. Electrolytes are normal BUN however is 32 creatinine 4.29 patient remains on hemodialysis. Patient is back on propofol at 55 mcg/kg/m, remains unresponsive even off propofol, obviously he sustained significant and severe anoxic brain injury. 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 Right pupil is sluggish and left pupil is nonreactive surgical from the past. Patient has a very weak gag reflex. And no responses whatsoever to any deep painful stimuli. Chest x-ray is showing pulmonary edema/unilateral mostly involving the right side, underlying pneumonia is not entirely ruled out but felt to be less likely. Reevaluated today on 02/14/2019, remains on mechanical ventilation, ventilator settings are assist control rate of 20 tidal volume 500 PEEP of 8 and FiO2 is 50%. Remains on epinephrine at 0.08 mcg/kg/m remains on propofol at 45 mcg/kg/m. Neurological status is basically about the same, patient is not responding to any stimuli, no corneals, no oculocephalics, patient gets extremely restless agitated and desaturates easily when off propofol, and he seems to be also epinephrine dependent. Drops of blood pressure easily once the dose is down down from 0.08. ABG showed a pO2 of 69 pCO2 of 36 pH of 7.40 electrolytes are relatively normal renal profile is abnormal with a BUN of 39 creatinine is 5.13, no hemodialysis in the last 2 days. WBC count 12.7 hemoglobin is 7. Chest x-ray continues to show evidence of pulmonary edema, strongly doubt any underlying pneumonia. Objective - Vital Signs Vital signs: Vital Signs Temp 100 F H 02/14/19 04:00 Pulse 88 02/14/19 07:38 Resp 22 02/14/19 07:15 BP 104/59 02/13/19 19:00 Pulse Ox 92 L 02/14/19 07:15 Intake & Output 02/13/19 02/14/19 02/14/19 18:59 06:59 18:59 Intake Total 1702.487 5716.458 50 Output Total 45 40 5 Balance 3120.705 1460.458 45 Weight 107.3 kg 117 kg 117 kg Intake: IV 600 725 50 Piperacillin-Tazobactam 3 125 .375 gm In Sodium Chloride 0.9% 100 ml @ 25 mls/hr IVPB Q12HR [place] Rx #:[id number] Sodium Chloride 0.9% 1, 600 600 50 000 ml @ 50 mls/hr IV . Q20H [place] Rx#:[id number] Intake, IV Titration 644.387 515.458 0 Amount EPINEPHrine 4 mg In 318.393 161.100 Dextrose 5% in Water 250 ml @ 0.01 MCG/KG/MIN 3. 619 mls/hr IV .Q24H [place] Rx#:[id number] Insulin Regular 100 unit 59.893 73.722 0 In Sodium Chloride 0.9% 100 ml @ Per Protocol IV .Q0M [place] Rx#:[id number] Propofol 1,000 mg In 266.101 280.636 Empty Bag 1 bag @ Titrate IV .Q0M [place] Rx#: [id number] Tube Feeding 429 390 Other 155 120 Output: Urine 45 40 5 Other: Voiding Method Indwelling Catheter Indwelling Catheter ABP, PAP, CO, CI - Last Documented Arterial Blood Pressure 126/47 - Exam Physical Exam: Revealed 68-year-old white male obese comatose, intubated and ventilated. Head: Atraumatic, normocephalic. Endotracheal tube and orogastric tube are intact. HEENT:[Neck is supple.] [No neck masses.] [No thyromegaly.] [No JVD.] Moist mucous membranes, no neck masses, no JVD. Chest: [Symmetrical chest expansion, clear breath sound bilaterally no rhonchi and no wheezes. Cardiac Exam: [Normal S1 and S2, no S3 gallop, 2/6 systolic murmur thought the precordium.] Abdomen: [Obese, Soft, nontender, no megaly, no rebound, no guarding, normal bowel sounds.] Extremities: [No clubbing, 1+ bipedal, no cyanosis.] Right below knee amputation is noted. Neurological Exam: Right pupil is sluggishly reactive to light left pupil is surgical nonreactive. Corneals are absent. No responses to any painful stimuli. Psychiatric could not be assessed. Skin: No rashes. Right below-knee amputation is intact. Wrapped with sterile dressing. - Labs CBC & Chem 7: 02/14/19 04:36 02/14/19 04:36 Labs: Abnormal Lab Results - Last 24 Hours (Table) 02/13/19 02/13/19 02/13/19 Range/Units 11:15 12:57 14:04 WBC (3.8-10.6) k/uL RBC (4.30-5.90) m/uL Hgb (13.0-17.5) gm/dL Hct (39.0-53.0) % Neutrophils # (1.3-7.7) k/uL Eosinophils # (0-0.7) k/uL ABG pO2 (83-108) mmHg ABG O2 Saturation (94-97) % Sodium (137-145) mmol/L BUN (9-20) mg/dL Creatinine (0.66-1.25) mg/dL Glucose (74-99) mg/dL POC Glucose (mg/dL) 184 H 143 H 125 H (75-99) mg/dL Calcium (8.4-10.2) mg/dL AST (17-59) U/L Total Protein (6.3-8.2) g/dL Albumin (3.5-5.0) g/dL 02/13/19 02/13/19 02/13/19 Range/Units 16:03 17:28 18:39 WBC (3.8-10.6) k/uL RBC (4.30-5.90) m/uL Hgb (13.0-17.5) gm/dL Hct (39.0-53.0) % Neutrophils # (1.3-7.7) k/uL Eosinophils # (0-0.7) k/uL ABG pO2 (83-108) mmHg ABG O2 Saturation (94-97) % Sodium (137-145) mmol/L BUN (9-20) mg/dL Creatinine (0.66-1.25) mg/dL Glucose (74-99) mg/dL POC Glucose (mg/dL) 170 H 157 H 171 H (75-99) mg/dL Calcium (8.4-10.2) mg/dL AST (17-59) U/L Total Protein (6.3-8.2) g/dL Albumin (3.5-5.0) g/dL 02/13/19 02/13/19 02/13/19 Range/Units 21:22 22:08 22:56 WBC (3.8-10.6) k/uL RBC (4.30-5.90) m/uL Hgb (13.0-17.5) gm/dL Hct (39.0-53.0) % Neutrophils # (1.3-7.7) k/uL Eosinophils # (0-0.7) k/uL ABG pO2 (83-108) mmHg ABG O2 Saturation (94-97) % Sodium (137-145) mmol/L BUN (9-20) mg/dL Creatinine (0.66-1.25) mg/dL Glucose (74-99) mg/dL POC Glucose (mg/dL) 192 H 177 H 166 H (75-99) mg/dL Calcium (8.4-10.2) mg/dL AST (17-59) U/L Total Protein (6.3-8.2) g/dL Albumin (3.5-5.0) g/dL 02/13/19 02/14/19 02/14/19 Range/Units 23:57 01:07 01:56 WBC (3.8-10.6) k/uL RBC (4.30-5.90) m/uL Hgb (13.0-17.5) gm/dL Hct (39.0-53.0) % Neutrophils # (1.3-7.7) k/uL Eosinophils # (0-0.7) k/uL ABG pO2 (83-108) mmHg ABG O2 Saturation (94-97) % Sodium (137-145) mmol/L BUN (9-20) mg/dL Creatinine (0.66-1.25) mg/dL Glucose (74-99) mg/dL POC Glucose (mg/dL) 144 H 145 H 136 H (75-99) mg/dL Calcium (8.4-10.2) mg/dL AST (17-59) U/L Total Protein (6.3-8.2) g/dL Albumin (3.5-5.0) g/dL 02/14/19 02/14/19 02/14/19 Range/Units 03:03 03:56 04:36 WBC 12.7 H (3.8-10.6) k/uL RBC 2.39 L (4.30-5.90) m/uL Hgb 7.0 L (13.0-17.5) gm/dL Hct 22.3 L (39.0-53.0) % Neutrophils # 9.6 H (1.3-7.7) k/uL Eosinophils # 0.8 H (0-0.7) k/uL ABG pO2 (83-108) mmHg ABG O2 Saturation (94-97) % Sodium (137-145) mmol/L BUN (9-20) mg/dL Creatinine (0.66-1.25) mg/dL Glucose (74-99) mg/dL POC Glucose (mg/dL) 170 H 183 H (75-99) mg/dL Calcium (8.4-10.2) mg/dL AST (17-59) U/L Total Protein (6.3-8.2) g/dL Albumin (3.5-5.0) g/dL 02/14/19 02/14/19 02/14/19 Range/Units 04:36 04:38 05:15 WBC (3.8-10.6) k/uL RBC (4.30-5.90) m/uL Hgb (13.0-17.5) gm/dL Hct (39.0-53.0) % Neutrophils # (1.3-7.7) k/uL Eosinophils # (0-0.7) k/uL ABG pO2 (83-108) mmHg ABG O2 Saturation (94-97) % Sodium 132 L (137-145) mmol/L BUN 39 H (9-20) mg/dL Creatinine 5.13 H (0.66-1.25) mg/dL Glucose 146 H (74-99) mg/dL POC Glucose (mg/dL) 181 H 161 H (75-99) mg/dL Calcium 7.1 L (8.4-10.2) mg/dL AST 77 H (17-59) U/L Total Protein 5.5 L (6.3-8.2) g/dL Albumin 2.6 L (3.5-5.0) g/dL 02/14/19 02/14/19 02/14/19 Range/Units 06:19 07:11 07:16 WBC (3.8-10.6) k/uL RBC (4.30-5.90) m/uL Hgb (13.0-17.5) gm/dL Hct (39.0-53.0) % Neutrophils # (1.3-7.7) k/uL Eosinophils # (0-0.7) k/uL ABG pO2 69 L (83-108) mmHg ABG O2 Saturation 93.9 L (94-97) % Sodium (137-145) mmol/L BUN (9-20) mg/dL Creatinine (0.66-1.25) mg/dL Glucose (74-99) mg/dL POC Glucose (mg/dL) 137 H 160 H (75-99) mg/dL Calcium (8.4-10.2) mg/dL AST (17-59) U/L Total Protein (6.3-8.2) g/dL Albumin (3.5-5.0) g/dL Assessment and Plan Assessment: Impression: Status post Cardiac arrest 3, acute ST elevation myocardial infarction, requiring CPR and defibrillation. Status post emergent cardiac catheterization and stenting. Status post stenting of RCA severe anoxic brain injury. Cardiogenic shock post cardiac arrest improved. Acute kidney injury, acute tubular necrosis, presently on intermittent hemod ialysis. 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 History of hepatitis B Recommendation: Continue ventilatory support. Continue hemodynamic support. As needed Continue nutritional support./enteral feeding. Remains on wean. Remains unstable for a CT of the head, patient intermittently drops blood pressure requiring epinephrine.. Overall condition remains critical. And probably futile. Suspect high mortality. Considering his anoxic brain injury which seems to be severe, Family is planning a meeting with the neurologist today, and hopefully they would make a decision regarding comfort care measures. I am totally agreeable to terminal weaning and comfort care measures. Again his condition seems to be more of a medical futility circulation at this point. Critical care time is 32 minutes Time with Patient: Greater than 30
[2019-02-14] MEDS: ATORVASTATIN 80 MG TAB PO SCH (13:51)
[2019-02-14] MEDS: BRIMONIDINE TARTRATE 0.2% DROPS 5 ML BTL LEFT EYE SCH (13:51)
[2019-02-14] MEDS: CHLORHEXIDINE GLUCONATE 15 ML CUP MUCOUS MEM SCH (13:51)
[2019-02-14] MEDS: ASPIRIN 81 MG PO SCH (13:51)
[2019-02-14] MEDS: PIPERACILLIN-TAZOBACTAM 3.375 GM in SODIUM CHLORIDE 0.9% 100 ML IVPB SCH (13:52)
[2019-02-14] MEDS: METOPROLOL TARTRATE 25 MG TAB PO SCH (13:52)
[2019-02-14] MEDS: TIMOLOL 0.5% OPHTH DROPS 5 ML BTL LEFT EYE SCH (13:52)
[2019-02-14] MEDS: SODIUM BICARBONATE TAB 650 MG TAB PO SCH (13:52)
[2019-02-14] MEDS: DORZOLAMIDE HCL 2% DROPS 10 ML BTL LEFT EYE SCH (13:52)
[2019-02-14] MEDS: TICAGRELOR 90 MG TAB PO SCH (13:52)
--- NOTE | 2019-02-14 13:53 | P.DS ---
Providers Date of admission: 01/15/19 21:21 Expected date of discharge: 02/14/19 Attending physician: Dillon Granger Consults: 01/15/19 21:55 Consult Physician Routine Consulting Provider: Toshia Edward Consult Reason/Comments: gangrenous 5th toe and distal foot Do you want consulting provider notified?: Yes 01/16/19 12:00 Consult Physician Routine Consulting Provider: Jimenez Wilkinson Consult Reason/Comments: R foot gangrene Do you want consulting provider notified?: Yes 01/16/19 12:02 Consult Physician Routine Consulting Provider: Heriberto Cardoza Consult Reason/Comments: pre op Do you want consulting provider notified?: Yes 01/18/19 16:28 Consult Physician Stat Consulting Provider: Rah Dominguez Consult Reason/Comments: icu management Do you want consulting provider notified?: Already Contacted 01/19/19 09:16 Consult Physician Stat Consulting Provider: Medhat Brar Consult Reason/Comments: DIANNA Do you want consulting provider notified?: Yes 02/09/19 10:04 Consult Physician Stat Consulting Provider: Kris Cárdenas Consult Reason/Comments: cardiac arrest Do you want consulting provider notified?: Already Contacted 02/09/19 11:27 Consult Physician Routine Consulting Provider: [facility] Consult Reason/Comments: Post Interventional patient Do you want consulting provider notified?: Already Contacted 02/10/19 13:54 Consult Physician Urgent Consulting Provider: Francisco Joyner Consult Reason/Comments: anoxic brain injury Do you want consulting provider notified?: Yes Primary care physician: Dillon Granger [facility] Course: Discharge diagnosis #1 cardiac arrest secondary to acute ST elevation inferior wall [place] requiring multiple prolonged codes.underwent cardiac cath with stents to RCA. Currently maintained on mechanical ventilation. Epinephrine drip in place. Chest x-ray completed showing improvement in lung volume irrigation. Pulmonary and critical care service is following. Patient currently maintained on Zosyn. Post cardiac cath 2-D echo completed showing EF of 35-40%. Patient currently on epinephrine drip #2. Anoxic encephalopathy and toxic metabolic encephalopathy post prolonged cardiac arrest. Neurology services are following. Patient will undergo EEG. Computed tomography scan has been ordered for when patient is stable #3 gangrene involving the right fifth toe with surrounding cellulitis Status post amputation of fourth and fifth toe with Dr. Edward and status post right BKA. #4 sepsis present on admission as evidenced by fever, leukocytosis, and elevated lactic acid. wound cultures growing gram-negative bacilli. White blood cell improving down to 9.3. patient has completed course of antibiotics per infectious disease no need for antibiotics at this time #5 acute hypoxic and hypercapnic respiratory failure with altered mental status changes secondary to severe sepsis. Patient was transferred to the intensive care unit and placed on mechanical ventilation. patient has been successfully extubated to 2 L. #6. Hypotension secondary to septic shock requiring Levophed for pressure support. resolved #7. Acute kidney injury secondary to ATN secondary to hypotension as well as vancomycin toxicity. Nephrology services are following. Ultrasound completed showing no evidence of hydronephrosis. currently receiving hemodialysis. Permanent hemodialysis catheter placed on 01/29/2019. On 02/10/2018 patient receiving hemodialysis #8. history of essential hypertension. Cardiology services following. EF 50- 55%. Per cardiology services no evidence of acute coronary syndrome at this time. hydralazine has been added by mouth #9. insulin-dependent diabetes mellitus, with poor control due to noncompliance last hemoglobin A1c was 9.8 at this time will hold glipizide, Januvia and metformin, and cover was insulin to sliding scale will adjust medications as needed. Blood sugars have been in the 200s after episode of hypoglycemia. Patient currently on insulin drip for tight blood sugar control. Post cardiac arrest patient started back on insulin drip #10. underlying history of diabetic complications of peripheral neuropathy and retinopathy. #11. poor compliance with medical management, patient had extensive counseling in the last year, his A1c was down to 7.1 in June however it was up to 9.8 again recently. #12 underlying history of hyperlipidemia maintained on atorvastatin, on hold. #13. Hypoglycemia. Home meds DC'd. Tube feedings have been initiated. Hypoglycemia has resolved #14. volume overload. Patient maintained on IV Lasix. Nephrology services are following #15. History of glaucoma with previous surgeries to left eye. Unequal pupils which patient reports is chronic. patient maintained on multiple eyedrops hospital course Refugio Saenz, is a 68-year-old male who presented to [facility] emergency room with pain in the right foot, he was evaluated in emergency room and had blackish discoloration of the right fifth toe with surrounding erythema and tenderness, patient was started on IV antibiotics Zosyn, vancomycin, and clindamycin, he was admitted to medical floor vascular surgery consultation was requested for possible amputation due to evidence of gangrene. Infectious disease consultation was requested. Patient has a known history of insulin-dependent diabetes mellitus, his glucose level was well controlled up until September of this year his A1c in June was 7.1 and in September was 7.3 however apparently patient stopped taking his insulin and his medications and his A1c was up to 9.8 in November, he has a known history of right foot ulcer he was admitted to the hospital with right foot cellulitis and ulcer in 2014 and he was followed at the wound care clinic in 2015 however he was doing well up until recently. Patient also has a known history of hypertension, hyperlipidemia, he denies any history of coronary artery disease or congestive heart failure, he had an echoc ardiogram done in 2014 at that time he had normal left ventricular function was normal ejection fraction, no significant valvular disease and no pulmonary hypertension. 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 On 01/17/2019 patient's alert and oriented 3. Patient had fourth and fifth toe amputation with Dr. Edward this morning. Patient having some low blood pressure will give 500 mL bolus. Patient denies chest pain or shortness of breath. Patient denies nausea vomiting or diarrhea. Patient is having some increased pain to foot area pain medications ordered 01/18/2019, patient seen eval examined while covering for Dr. Granger, waking up this morning slightly slow to respond but not confused, breathing comfortably denies any chest pain labs reviewed today patient has been evaluated by Dr. Bassett, white cell count is coming down to 19,000, lactic acid level is normalized, patient has been on broad-spectrum antibiotics with vascular surgery on board 01/19/2019, patient seen and evaluated examined in the ICU intubated on full ventilator support, patient had gradual loss of consciousness has been more lethargic arterial blood gases were checked shows hypercapnic and hypoxic respiratory failure was intubated in the ICU, patient has been placed on propofol he was volume depleted depleted aggressive fluid resuscitation were performed, is still requiring levophed intermittently, patient was also noted to be hypoglycemic 7030 insulin and other oral hypoglycemic agents were discontinued, ultrasound of the abdomen has been performed which is reviewed no obvious hydronephrosis seen, patient has decreased urine output along with rising BUN/creatinine appeared to be acute tubular necrosis, patient also requiring intermittent bolus of D10 for hypoglycemia, wounds has been evaluated by vascular surgery noted recommendation, patient has very poor venous access, will put a central line in, critical care time 45 minutes during procedure, due to altered mental status CT of the head was performed which was negative On 01/20/2019 patient remains in the intensive care unit on mechanical ventilation. Levophed has been on hold blood pressures has sustained. Creatinine has increased to 4.17 and bun 56. Nephrology services are following. Per nursing staff patient does follow commands during sedation holiday ABGs have improved. Discussed case with vascular surgeon nurse practitioner possible BKA discussion. White blood cell decreasing to 16.0. Critical care services are following. Patient remains on Zosyn for IV antibiotics. Infectious disease following 01/21/2019 patient remains on mechanical ventilation on in the intensive care unit. Patient remains sedated, on propofol. However per nursing staff patient does follow commands during sedation holiday. Patient is on 50% FiO2, 5 PEEP, tidal volume 500. Levophed off since 01/20/20. Blood pressure remains in the 130's-150's systolic. Creatinine 4.35 from 4.17 and BUN 57 from 56, Calcium 7.0, phosphorus 5.9 Nephrology is following. Orogastric tube replaced this morning. Per nursing staff OG tube was coiled in patient's mouth with tube feeds running. Chest x-ray repeated, no significant change from previous. ABG improving, still metabolic acidosis. WBC of 14.1 down from 16. Afebrile. Infectious disease is following patient is maintained on Zosyn. Will send C. diff sample due to new onset diarrhea for 1 day. Hyperglycemia noted (glucose 200's). Will discuss tube feed formula with dietary. If no changes can be made will adjust sliding scale. On 01/22/2019 patient remains sedated on mechanical ventilation in the intensive care unit. Per nursing staff patient is to have a BKA today with Dr. Edward. Patient remains off pressors, blood pressure has been stable. Chest x-ray repeated this morning, per pulmonary. No significant change in ABGs. Creatinine continues to increase, 4.84 today BUN 60, patient is still making adequate urine output nephrology is following. Tube feeds on hold, for pending OR. WBC 14.2, temperature overnight 100F. Please is following patient is maintained on Zosyn. C. diff sample was negative. 01/23/2019 patient remains sedated and on mechanical ventilation in the ICU. He underwent right BKA yesterday, 01/22/[address] Edward. Estimated blood loss 150 mL. He had a temp of 100 last night. Urine output is about 50 mL per hour. Creatinine has gone down from 4.84-4.82. Nephrology is following closely. No plans for hemodialysis yet. Patient's blood sugars are starting to become more elevated. They're in the 180s to 200s. Tube feedings are being adjusted. White count 13.7 hemoglobin 10.3 On 01/24/2019 patient remains sedated on mechanical ventilation in the intensive care unit. Decreased urine output throughout night. Creatinine 5.15 and bun 68. Patient remains on insulin drip. WBC 14.1. Patient having low-grade temps. Patient remains closely followed by critical care consulting providers On 01/25/2019 patient was seen and examined in the intensive care unit, he is currently alert and maintained on BiPAP trial, he is making more urine output, and no hemodialysis is scheduled at this time, creatinine improved, down from 5.15-4.44 white blood count down to 11.3 patient is followed by nephrology, infectious disease, pulmonary and critical care and vascular surgery On 01/26/2019 patient was seen and examined in the ICU, he is intubated sedated maintained on mechanical ventilation, creatinine went up today and he was started on hemodialysis, Zosyn has today, at this time will resume Zosyn, we have asked infectious disease to see patient and reassess antibiotics, otherwise patient is stable there is no fever or chills, he continues to have a rectal tube and having large amount of diarrhea, C. diff was checked and was negative will repeat test today. On 01/27/2019 patient remains on mechanical ventilation in the intensive care unit. Creatinine trending down today 4.76 and bun 77. Patient remains on Lasix drip per nephrology services. White count 11.8. She remains on IV Zosyn. Sedation holiday performed per nursing staff and critical care recommendation. On 01/28/2019 patient remains in the intensive care unit on mechanical ventilation. Sedation currently turned off. Patient is awake and following commands possible extubation today per critical care. Patient also received hemodialysis this will be the patient's third round of hemodialysis. Creatinine is trending down 4.44. Patient remains on Lasix drip. On 01/29/2019 patient remains in ICU intubated sedated maintained on mechanical ventilation, he had to CPAP trials yesterday, he is still maintained on hemodialysis, creatinine is elevated at 4.8 and BUN 89. On 01/30/2019 patient remains on mechanical ventilation in the intensive care unit. Patient is off sedation at this time and following commands. CPAP trial in place. Possible extubation today. Patient currently getting hemodialysis. Permanent hemodialysis catheter placed yesterday. Creatinine is trending down. Patient taken off insulin drip. on 01/31/2019 patient remains in intensive care unit on mechanical ventilation. Discussed case with critical care doctor Dr. Dominguez Yesterday. Patient unable to wean. we'll continue to monitor patient over the weekend and consider possible trach next week. Patient also received hemodialysis yesterday. On 02/01/2019 patient was seen and examined in the ICU he is intubated and maintained on mechanical ventilation sedation is being stopped now for CPAP trial on 02/02/2019 patient was seen and examined in the ICU he has been extubated since yesterday, he is tolerating well maintained on oxygen via nasal cannula, he seems somnolent however he is opening his eyes and answering questions by nodding his head and trying to speak, there is no fever or chills no headache or dizziness no chest pain no shortness of breath he has occasional cough no nausea or vomiting no abdominal pain. on 02/03/2019 patient is currently sitting up in chair on nasal cannula. Patient does wake up and follow commands. Per nursing staff antibiotics due to ID is following per nursing will get a hold of infectious disease to further evaluate need for antibiotics. at this time patient denies chest pain or shortness of breath. Patient denies nausea vomiting or diarrhea. Patient denies any urinary burning or frequency. patient to receive hemodialysis today remains on IV Lasix on 02/04/2019 patient is currently resting comfortably in bed. Patient is alert and oriented. Per nursing staff patient no longer needs antibiotics Dr. Bassett is following for infectious disease.patient received dialysis yesterday will receive hemodialysis again tomorrow maintained on IV Lasix. Elevated blood pressure. Hydralazine by mouth has been added. At this time patient denies chest pain or shortness of breath. Patient denies nausea vomiting or diarrhea. Patient denies any urinary burning or frequency. on 02/05/2019 patient is currently resting comfortably in chair. Per nursing staff patient had episode of increased lethargy last night requiring BiPAP and Narcan. per critical care and narcotics and benzos were DC'd at this time. Patient is now awake and alert 3. Patient able to follow commands and answer all questions. Patient denies any chest pain or shortness of breath. Patient denies nausea vomiting or diarrhea. Patient denies any urinary burning or frequency. 02/06/2019 patient is currently resting comfortably in bed.Patient did undergo hemodialysis yesterday. Lasix has been decreased per nephrology. Patient denies chest pain or shortness of breath. Patient denies vomiting or diarrhea. Patient denies any urinary burning or frequency. Working on discharge planning possible discharge to ECF next week. On 02/07/2019 patient has moved out of the intensive care unit to [facility] care. Patient currently getting hemodialysis. Discussed case with nephrology services planning to do dialysis today and hold off during the weekends assess patient renal function on Sunday. Also patient is planning to be discharged to ECF [place] now. This time patient denies chest pain. Patient denies nausea vomiting or diarrhea. Patient having some mild discomfort back will add Tylenol. Patient denies any urinary burning or frequency edward catheter remains in place. On 02/08/2019 patient was seen and examined on the telemetry floor he is alert responsive in no apparent distress he was more confused today, there is no fever or chills no headache or dizziness no chest pain no shortness of breath no cough no nausea or vomiting no abdominal pain no diarrhea no burning with urination no frequency or urgency and no hematuria. On 02/09/2019 patient had cardiac arrest this morning he was coded multiple times and was transferred to intensive care unit, he was seen by Dr. Bear who was covering for Dr. Dominguez, he was also seen by cardiology EKG revealed ST elevation in inferior leads patient was taken to the film laboratory technician for acute inferior wall [place]. On 02/10/2019 patient is currently in the intensive care unit on mechanical vent ilation. Patient is status post cardiac arrest. Patient was taken to the cardiac Marketing Area Manager and found to have been a percent occluded RCA. Patient did receive stent in currently on Brilinta. Patient is currently on mechanical ventilation with sedation and epinephrine drip. Currently receiving hemodialysis. Critical care services are following. On 02/11/2019 patient remains in the intensive care unit on mechanical ventilation. Patient was evaluated by neurology services EEG and computed tomography scan of the brain has been ordered. Per nursing staff patient may not be stable enough for CT at this time. Patient remains on epinephrine drip for blood pressure control. Patient maintained on IV Zosyn per critical care. Patient to receive hemodialysis tomorrow 12/13/2018. On 02/12/2019 patient was seen and examined in the ICU, he is intubated sedated maintained on mechanical ventilation, he is not tolerating weaning off sedation, he is having difficulty tolerating hemodialysis, today the was approached in regard to possibility of terminal weaning and Comfort care only, patient will think about it and will rediscuss again tomorrow . On 02/13/2019 patient remains in the intensive care unit. Per nursing staff patient unable to wean off sedation. Comfort care was discussed with . Patient unable to tolerate hemodialysis. We'll await family decision in regards to comfort care On 02/14/2019 patient remains in the intensive care unit. Patient unresponsive off sedation. The pressure also decreasing to the 30s systolic without epinephrine drip. Per nursing staff family did not come in yesterday planning to come in today to make final decision in regards to comfort care and terminal weaning. Dialysis currently on hold until decision is made Decision was made to terminally wean patient per family. Patient at 1330 I performed an examination of the patient and discussed their management with the Nurse Practitioner. I have reviewed the Nurse Practitioner's notes and agree with the documented findings and plan of care Plan - Discharge Summary New Discharge Prescriptions: No Action HYDROcodone/APAP 10-325MG [Arroyo 10-325] 1 tab PO TID PRN PRN Reason: Pain glipiZIDE [Glucotrol] 10 mg PO DAILY Insuln Asp Prt/Insulin Aspart [NovoLOG MIX 70-30 VIAL] 35 unit SQ AC-BRKFST Brimonidine Tartrate [Alphagan P 0.2% Ophth Soln] 1 drops LEFT EYE TID Dorzolamide 2% [Trusopt 2%] 1 drops LEFT EYE TID FLUoxetine HCL [PROzac] 20 mg PO DAILY Latanoprost/Pf [Latanoprost 0.005% Eye Drop] 1 drop LEFT EYE HS Lisinopril 40 mg PO DAILY metFORMIN HCL [Glucophage] 500 mg PO BID Timolol 0.5% Ophth Soln [Timoptic 0.5% Ophth Soln] 1 drop LEFT EYE BID Insuln Asp Prt/Insulin Aspart [NovoLOG MIX 70-30 VIAL] 20 unit SQ HS Insulin Aspart [NovoLOG] 8 units SQ AC-SUPPER Gabapentin [Neurontin] 100 mg PO HS rOPINIRole HCL [Requip] 2 mg PO HS Pioglitazone [Actos] 30 mg PO DAILY amLODIPine BESYLATE 5 mg PO DIRECTED Atorvastatin [Lipitor] 40 mg PO HS Discharge Medication List HYDROcodone/APAP 10-325MG [Arroyo 10-325] 1 tab PO TID PRN 02/03/15 [History] glipiZIDE [Glucotrol] 10 mg PO DAILY 02/03/15 [History] Insuln Asp Prt/Insulin Aspart [NovoLOG MIX 70-30 VIAL] 35 unit SQ AC-BRKFST 03/22/16 [History] Brimonidine Tartrate [Alphagan P 0.2% Ophth Soln] 1 drops LEFT EYE TID 08/08/18 [History] Dorzolamide 2% [Trusopt 2%] 1 drops LEFT EYE TID 08/08/18 [History] FLUoxetine HCL [PROzac] 20 mg PO DAILY 08/08/18 [History] Insuln Asp Prt/Insulin Aspart [NovoLOG MIX 70-30 VIAL] 20 unit SQ HS 08/08/18 [History] Latanoprost/Pf [Latanoprost 0.005% Eye Drop] 1 drop LEFT EYE HS 08/08/18 [History] Lisinopril 40 mg PO DAILY 08/08/18 [History] Timolol 0.5% Ophth Soln [Timoptic 0.5% Ophth Soln] 1 drop LEFT EYE BID 08/08/18 [History] metFORMIN HCL [Glucophage] 500 mg PO BID 08/08/18 [History] Gabapentin [Neurontin] 100 mg PO HS 01/15/19 [History] Insulin Aspart [NovoLOG] 8 units SQ AC-SUPPER 01/15/19 [History] rOPINIRole HCL [Requip] 2 mg PO HS 01/15/19 [History] Atorvastatin [Lipitor] 40 mg PO HS 01/20/19 [History] Pioglitazone [Actos] 30 mg PO DAILY 01/20/19 [History] amLODIPine BESYLATE 5 mg PO DIRECTED 01/20/19 [History] Follow up Appointment(s)/Referral(s): Dillon Granger MD [Primary Care Provider] - 1-2 days Rah Dominguez MD [STAFF PHYSICIAN] - 1 Week Discharge Disposition: - Preliminary Cause of Preliminary Cause of : anoxic brain injury post [place]/ cardiac arrest. Renal failure
--- NOTE | 2019-02-14 14:54 | P.PN ---
Subjective Progress Note Date: 02/14/19 Late entry: Patient was seen earlier at 10:30 AM and then again at 11:30 AM, just before family meeting. Patient showing no signs of clinical improvement at all. Patient is on 45 g of propofol. Patient is also on pressors, as decreasing pressors produces blood pressure in 30s. Patient continues to be very severely encephalopathic, unresponsive. According to nursing report, when the sedation is decreased, patient respiratory distress, breathing faster, abdominal movement and pulse ox decreases. No meaningful response noted at that time. Patient has sluggishly reacting pupil on the right. Patient has nonreactive surgical left pupil from the past. Oculocephalics are absent. Corneals absent. Patient has a week gag. No response to painful stimuli. Objective - Vital Signs Vital signs: Vital Signs Temp 100 F H 02/14/19 04:00 Pulse 84 02/14/19 11:27 Resp 22 02/14/19 07:15 BP 104/59 02/13/19 19:00 Pulse Ox 92 L 02/14/19 07:15 Intake & Output 02/13/19 02/14/19 02/14/19 18:59 06:59 18:59 Intake Total 0483.842 8734.458 50 Output Total 45 40 5 Balance 0144.472 3627.458 45 Weight 107.3 kg 117 kg 117 kg Intake: IV 600 725 50 Piperacillin-Tazobactam 3 125 .375 gm In Sodium Chloride 0.9% 100 ml @ 25 mls/hr IVPB Q12HR [place] Rx #:[id number] Sodium Chloride 0.9% 1, 600 600 50 000 ml @ 50 mls/hr IV . Q20H [place] Rx#:[id number] Intake, IV Titration 644.387 515.458 0 Amount EPINEPHrine 4 mg In 318.393 161.100 Dextrose 5% in Water 250 ml @ 0.01 MCG/KG/MIN 3. 619 mls/hr IV .Q24H [place] Rx#:[id number] Insulin Regular 100 unit 59.893 73.722 0 In Sodium Chloride 0.9% 100 ml @ Per Protocol IV .Q0M [place] Rx#:[id number] Propofol 1,000 mg In 266.101 280.636 Empty Bag 1 bag @ Titrate IV .Q0M [place] Rx#: [id number] Tube Feeding 429 390 Other 155 120 Output: Urine 45 40 5 Other: Voiding Method Indwelling Catheter Indwelling Catheter ABP, PAP, CO, CI - Last Documented Arterial Blood Pressure 126/47 - Exam As above. - Labs CBC & Chem 7: 02/14/19 04:36 02/14/19 04:36 Labs: Abnormal Lab Results - Last 24 Hours (Table) 02/13/19 02/13/19 02/13/19 Range/Units 16:03 17:28 18:39 WBC (3.8-10.6) k/uL RBC (4.30-5.90) m/uL Hgb (13.0-17.5) gm/dL Hct (39.0-53.0) % Neutrophils # (1.3-7.7) k/uL Eosinophils # (0-0.7) k/uL ABG pO2 (83-108) mmHg ABG O2 Saturation (94-97) % Sodium (137-145) mmol/L BUN (9-20) mg/dL Creatinine (0.66-1.25) mg/dL Glucose (74-99) mg/dL POC Glucose (mg/dL) 170 H 157 H 171 H (75-99) mg/dL Calcium (8.4-10.2) mg/dL AST (17-59) U/L Total Protein (6.3-8.2) g/dL Albumin (3.5-5.0) g/dL 02/13/19 02/13/19 02/13/19 Range/Units 21:22 22:08 22:56 WBC (3.8-10.6) k/uL RBC (4.30-5.90) m/uL Hgb (13.0-17.5) gm/dL Hct (39.0-53.0) % Neutrophils # (1.3-7.7) k/uL Eosinophils # (0-0.7) k/uL ABG pO2 (83-108) mmHg ABG O2 Saturation (94-97) % Sodium (137-145) mmol/L BUN (9-20) mg/dL Creatinine (0.66-1.25) mg/dL Glucose (74-99) mg/dL POC Glucose (mg/dL) 192 H 177 H 166 H (75-99) mg/dL Calcium (8.4-10.2) mg/dL AST (17-59) U/L Total Protein (6.3-8.2) g/dL Albumin (3.5-5.0) g/dL 02/13/19 02/14/19 02/14/19 Range/Units 23:57 01:07 01:56 WBC (3.8-10.6) k/uL RBC (4.30-5.90) m/uL Hgb (13.0-17.5) gm/dL Hct (39.0-53.0) % Neutrophils # (1.3-7.7) k/uL Eosinophils # (0-0.7) k/uL ABG pO2 (83-108) mmHg ABG O2 Saturation (94-97) % Sodium (137-145) mmol/L BUN (9-20) mg/dL Creatinine (0.66-1.25) mg/dL Glucose (74-99) mg/dL POC Glucose (mg/dL) 144 H 145 H 136 H (75-99) mg/dL Calcium (8.4-10.2) mg/dL AST (17-59) U/L Total Protein (6.3-8.2) g/dL Albumin (3.5-5.0) g/dL 02/14/19 02/14/19 02/14/19 Range/Units 03:03 03:56 04:36 WBC 12.7 H (3.8-10.6) k/uL RBC 2.39 L (4.30-5.90) m/uL Hgb 7.0 L (13.0-17.5) gm/dL Hct 22.3 L (39.0-53.0) % Neutrophils # 9.6 H (1.3-7.7) k/uL Eosinophils # 0.8 H (0-0.7) k/uL ABG pO2 (83-108) mmHg ABG O2 Saturation (94-97) % Sodium (137-145) mmol/L BUN (9-20) mg/dL Creatinine (0.66-1.25) mg/dL Glucose (74-99) mg/dL POC Glucose (mg/dL) 170 H 183 H (75-99) mg/dL Calcium (8.4-10.2) mg/dL AST (17-59) U/L Total Protein (6.3-8.2) g/dL Albumin (3.5-5.0) g/dL 02/14/19 02/14/19 02/14/19 Range/Units 04:36 04:38 05:15 WBC (3.8-10.6) k/uL RBC (4.30-5.90) m/uL Hgb (13.0-17.5) gm/dL Hct (39.0-53.0) % Neutrophils # (1.3-7.7) k/uL Eosinophils # (0-0.7) k/uL ABG pO2 (83-108) mmHg ABG O2 Saturation (94-97) % Sodium 132 L (137-145) mmol/L BUN 39 H (9-20) mg/dL Creatinine 5.13 H (0.66-1.25) mg/dL Glucose 146 H (74-99) mg/dL POC Glucose (mg/dL) 181 H 161 H (75-99) mg/dL Calcium 7.1 L (8.4-10.2) mg/dL AST 77 H (17-59) U/L Total Protein 5.5 L (6.3-8.2) g/dL Albumin 2.6 L (3.5-5.0) g/dL 02/14/19 02/14/19 02/14/19 Range/Units 06:19 07:11 07:16 WBC (3.8-10.6) k/uL RBC (4.30-5.90) m/uL Hgb (13.0-17.5) gm/dL Hct (39.0-53.0) % Neutrophils # (1.3-7.7) k/uL Eosinophils # (0-0.7) k/uL ABG pO2 69 L (83-108) mmHg ABG O2 Saturation 93.9 L (94-97) % Sodium (137-145) mmol/L BUN (9-20) mg/dL Creatinine (0.66-1.25) mg/dL Glucose (74-99) mg/dL POC Glucose (mg/dL) 137 H 160 H (75-99) mg/dL Calcium (8.4-10.2) mg/dL AST (17-59) U/L Total Protein (6.3-8.2) g/dL Albumin (3.5-5.0) g/dL Assessment and Plan Assessment: * Status post witnessed cardiac arrest 3, with total downtime of about 15-20 minutes * Anoxic encephalopathy, appears significant. * Toxic metabolic encephalopathy * Status post right below-knee amputation * Diabetes Plan: * EEG revealed moderate to severe background slowing. No epileptiform activity was seen. * Computed tomography scan of the head pending. Patient not medically stable to undergo CT. * Patient clinically not showing signs of improvement. * Patient is now 5 days postarrest with no signs of clinical improvement. Overall prognosis appears very poor for meaningful recovery. * Discussed with patient's , 2 daughters and extended family members in the family meeting room. Answered all their questions. * They are inclined towards terminal weaning today.
[2019-02-14 16:43] VITALS: PULSE 118; RESP 10; TEMP 98.9
[2019-02-14] MEDS: SODIUM CHLORIDE 0.9% 1,000 ML IV SCH (16:46)
[2019-02-14] MEDS ORDERED: FUROSEMIDE 10 MG/ML 10 ML VIAL IV SCH (21:00)
== END 2019-02-14 18:07 | disposition expired | DRG 853 ==
LOC: EC 19:07 → 4MS4W 21:21 → 2SICU 01-18 15:18 → 3SCARD 02-06 17:27 → 2SICU 02-09 07:04
PROVIDERS: ADMIT Internal Medicine; ATTEND Internal Medicine
PROC: 0Y6V0Z2 Detachment at Right 4th Toe, Mid, Open Approach (ICD-10-PCS; 2019-01-17)
PROC: 0Y6X0Z2 Detachment at Right 5th Toe, Mid, Open Approach (ICD-10-PCS; 2019-01-17)
PROC: 05HN33Z Insertion of Infusion Device into Left Internal Jugular Vein, Percutaneous Approach (ICD-10-PCS; 2019-01-18)
PROC: 03HY32Z Insertion of Monitoring Device into Upper Artery, Percutaneous Approach (ICD-10-PCS; 2019-01-18)
PROC: 4A133B1 Monitoring of Arterial Pressure, Peripheral, Percutaneous Approach (ICD-10-PCS; 2019-01-18)
PROC: 4A133J1 Monitoring of Arterial Pulse, Peripheral, Percutaneous Approach (ICD-10-PCS; 2019-01-18)
PROC: 05HN33Z Insertion of Infusion Device into Left Internal Jugular Vein, Percutaneous Approach (ICD-10-PCS; 2019-01-18)
PROC: 5A1955Z Respiratory Ventilation, Greater than 96 Consecutive Hours (ICD-10-PCS; principal; 2019-01-19)
PROC: 0BH17EZ Insertion of Endotracheal Airway into Trachea, Via Natural or Artificial Opening (ICD-10-PCS; 2019-01-19)
PROC: 05HM33Z Insertion of Infusion Device into Right Internal Jugular Vein, Percutaneous Approach (ICD-10-PCS; 2019-01-19)
PROC: 0Y6H0Z1 Detachment at Right Lower Leg, High, Open Approach (ICD-10-PCS; 2019-01-22)
PROC: 06HN33Z Insertion of Infusion Device into Left Femoral Vein, Percutaneous Approach (ICD-10-PCS; 2019-01-24)
PROC: 05HF33Z Insertion of Infusion Device into Left Cephalic Vein, Percutaneous Approach (ICD-10-PCS; 2019-01-29)
PROC: 05HM33Z Insertion of Infusion Device into Right Internal Jugular Vein, Percutaneous Approach (ICD-10-PCS; 2019-01-29)
PROC: 02HV33Z Insertion of Infusion Device into Superior Vena Cava, Percutaneous Approach (ICD-10-PCS; 2019-01-29)
PROC: 0JH63XZ Insertion of Tunneled Vascular Access Device into Chest Subcutaneous Tissue and Fascia, Percutaneous Approach (ICD-10-PCS; 2019-01-29)
PROC: 5A1D70Z Performance of Urinary Filtration, Intermittent, Less than 6 Hours Per Day (ICD-10-PCS; 2019-02-03)
PROC: 5A09357 Assistance with Respiratory Ventilation, Less than 24 Consecutive Hours, Continuous Positive Airway Pressure (ICD-10-PCS; 2019-02-05)
PROC: 027035Z Dilation of Coronary Artery, One Artery with Two Drug-eluting Intraluminal Devices, Percutaneous Approach (ICD-10-PCS; 2019-02-09)
PROC: 4A023N7 Measurement of Cardiac Sampling and Pressure, Left Heart, Percutaneous Approach (ICD-10-PCS; 2019-02-09)
PROC: B2111ZZ Fluoroscopy of Multiple Coronary Arteries using Low Osmolar Contrast (ICD-10-PCS; 2019-02-09)
PROC: 5A12012 Performance of Cardiac Output, Single, Manual (ICD-10-PCS; 2019-02-09)
PROC: 5A1955Z Respiratory Ventilation, Greater than 96 Consecutive Hours (ICD-10-PCS; 2019-02-09)
PROC: 0BH17EZ Insertion of Endotracheal Airway into Trachea, Via Natural or Artificial Opening (ICD-10-PCS; 2019-02-09)
PROC: 02H633Z Insertion of Infusion Device into Right Atrium, Percutaneous Approach (ICD-10-PCS; 2019-02-09)
PROC: 03HY32Z Insertion of Monitoring Device into Upper Artery, Percutaneous Approach (ICD-10-PCS; 2019-02-09)
PROC: 4A133B1 Monitoring of Arterial Pressure, Peripheral, Percutaneous Approach (ICD-10-PCS; 2019-02-09)
PROC: 4A133J1 Monitoring of Arterial Pulse, Peripheral, Percutaneous Approach (ICD-10-PCS; 2019-02-09)
DX: A41.50 Gram-negative sepsis, unspecified (principal); R65.21 Severe sepsis with septic shock; G93.41 Metabolic encephalopathy; J96.02 Acute respiratory failure with hypercapnia; J96.01 Acute respiratory failure with hypoxia; N17.0 Acute kidney failure with tubular necrosis; N18.6 End stage renal disease; I21.19 ST elevation (STEMI) myocardial infarction involving other coronary artery of inferior wall; I50.43 Acute on chronic combined systolic (congestive) and diastolic (congestive) heart failure; J18.9 Pneumonia, unspecified organism; E11.52 Type 2 diabetes mellitus with diabetic peripheral angiopathy with gangrene; I70.261 Atherosclerosis of native arteries of extremities with gangrene, right leg; I13.2 Hypertensive heart and chronic kidney disease with heart failure and with stage 5 chronic kidney disease, or end stage renal disease; Z68.41 Body mass index [BMI] 40.0-44.9, adult; E87.2 Acidosis; G93.1 Anoxic brain damage, not elsewhere classified; J44.0 Chronic obstructive pulmonary disease with (acute) lower respiratory infection; J98.11 Atelectasis; L03.115 Cellulitis of right lower limb; Z99.11 Dependence on respirator [ventilator] status; R57.0 Cardiogenic shock; Z51.5 Encounter for palliative care; Z66 Do not resuscitate; E11.65 Type 2 diabetes mellitus with hyperglycemia; Z79.4 Long term (current) use of insulin; Z86.14 Personal history of Methicillin resistant Staphylococcus aureus infection; E11.649 Type 2 diabetes mellitus with hypoglycemia without coma; E11.22 Type 2 diabetes mellitus with diabetic chronic kidney disease; D63.1 Anemia in chronic kidney disease; Z99.2 Dependence on renal dialysis; Z91.15 Patient's noncompliance with renal dialysis; E78.5 Hyperlipidemia, unspecified; E11.319 Type 2 diabetes mellitus with unspecified diabetic retinopathy without macular edema; E11.42 Type 2 diabetes mellitus with diabetic polyneuropathy; E11.621 Type 2 diabetes mellitus with foot ulcer; E11.628 Type 2 diabetes mellitus with other skin complications; D50.9 Iron deficiency anemia, unspecified; E66.9 Obesity, unspecified; E83.39 Other disorders of phosphorus metabolism; E86.0 Dehydration; G25.81 Restless legs syndrome; I25.10 Atherosclerotic heart disease of native coronary artery without angina pectoris; I25.2 Old myocardial infarction; I45.10 Unspecified right bundle-branch block; I48.91 Unspecified atrial fibrillation; L97.519 Non-pressure chronic ulcer of other part of right foot with unspecified severity; T36.8X5A Adverse effect of other systemic antibiotics, initial encounter; Z79.899 Other long term (current) drug therapy; Z83.3 Family history of diabetes mellitus; Z91.19 Patient's noncompliance with other medical treatment and regimen; M19.90 Unspecified osteoarthritis, unspecified site
CPT/HCPCS: 36415; 36600; 70450; 71045; 76770; 77001; 80048; 80053; 80074; 80202; 81001; 82330; 82728; 82805; 83540; 83550; 83605; 83735; 84100; 84484; 85025; 85027; 85347; 85610; 85730; 86704; 86706; 87040; 87070; 87075; 87077; 87186; 87205; 87324; 87340; 88305; 88311; 90935; 93306; 93308; 93458; 93923; 94002; 94003; 94640; 94660; 95819; 96361; 96365; 96375; 99285; C1874